=== PATIENT | female | born 1965 | race Caucasian/White ===

== ENCOUNTER 2018-01-28 09:01 | Outpatient (REF) | payer MEDICARE, MEDICAID, SELFPAY ==
[2018-01-28 13:58] LABS: Bilirubin Negative (Negative); Blood Negative (Negative); Clarity Clear; Glucose Negative (Negative); Ketones Negative (Negative); Leukocyte Esterase Small (Negative); Nitrite Positive (Negative); Specific Gravity 1.015 (1.005-1.025); Urobilinogen 0.2 EU/dL (Up TO 0.2)
[2018-01-28 13:59] LABS: HCT 36.6 % (36.0-46.0); HGB 12.1 g/dL (12.0-15.5); Mean Corp. HGB Concentration 33.1 g/dL (32.0-36.0); Mean Corpuscular Hemoglobin 28.2 pg (27.0-33.0); Mean Corpuscular Volume 85.3 fL (80-95); Platelet Count 208 x1000/uL (130-400); RBC 4.29 m/cumm (4.00-5.20); White Blood Cell Count 3.93 k/cumm (4.4-10.8)
[2018-01-28 14:23] LABS: Anion Gap 9.9 mmol/L (3-11); BUN 12 mg/dL (7-18); CO2 25.1 mmol/L (21.0-32.0); CREATININE 0.69 mg/dL (0.55-1.02); Calcium 8.5 mg/dL (8.5-10.1); Chloride 100 mmol/L (98-107); Glucose 124 mg/dL (70-100); Magnesium 1.6 mg/dL (1.8-2.4); PHOSPHORUS 3.8 mg/dL (2.6-4.7); Potassium 4.2 mmol/L (3.5-5.1); Sodium 135 mmol/L (136-145); Uric Acid 2.5 mg/dL (2.6-6.0)
[2018-01-28 14:30] LABS: Epithelial Cells Rare HPF (Negative); Other Cells Few Renal (Negative); WBC 20-50 HPF (0-5)
[2018-01-28 14:31] LABS: Bacteria Many HPF (Negative); C & S Indicated? Yes; Crystals Negative HPF (Negative); Mucus Negative (Negative); RBC Negative (0-2)
== END 2018-01-28 09:21 ==
LOC: NCHCN 09:01
PROVIDERS: PCP Internal Medicine; Visit Provider Internal Medicine
DX: N18.9 Chronic kidney disease, unspecified (principal)
CPT/HCPCS: 80048; 85027; 87077; 81003; 81015; 83735; 84100; 84550; 87086; 87186

== ENCOUNTER 2018-02-24 00:29 | Outpatient (CLI) | payer MEDICARE, MEDICAID, SELFPAY ==
--- NOTE | 2018-02-24 12:56 | DI.MAMMO_ITS ---
SYMPTOM/DIAGNOSIS: SCREENING, Z12.31 MAMMOGRAMS: Mammograms were interpreted according to the usual protocol including computer analysis with CAD system, tomosynthesis and C view imaging. Comparison is made with prior examinations. Breast density, category C. No suspicious masses or microcalcifications are seen. Coarse calcifications are noted in the upper outer quadrants of both breasts. No suspicious microcalcifications are seen. The skin and axilla are unremarkable. IMPRESSION: No definite evidence for malignancy. Yearly mammography is recommended. Category 2. MQSA ASSESSMENT OF FINDINGS: Negative with benign findings. Category 2. Patient will receive a letter notifying them of these results. Bi-RADS category C. The breasts are heterogeneously dense, which may obscure small masses.
== END 2018-02-24 00:49 ==
PROVIDERS: PCP Internal Medicine; Visit Provider Nurse Practitioner
DX: Z12.31 Encounter for screening mammogram for malignant neoplasm of breast (principal)
CPT/HCPCS: 77063; 77067

== ENCOUNTER 2018-03-24 15:54 | Outpatient (CLI) | payer MEDICARE, MEDICAID, SELFPAY ==
--- NOTE | 2018-03-24 15:51 | DI.RAD_ITS ---
SYMPTOM/DIAGNOSIS: LEFT MED KNEE PAIN AND STIFFNESS LEFT HIP: There are no prior comparison exams. There is moderate to severe hip joint space narrowing. There is sclerosis, acetabular and femoral head spurring as well as subchondral cyst formation on both sides of the joint. Surgical clips are seen in the left groin region. IMPRESSION: Severe degenerative changes.
== END 2018-03-24 16:14 ==
PROVIDERS: PCP Internal Medicine; Referring Provider Internal Medicine; Visit Provider Student in an Organized Health Care Education/Training Program
DX: M25.562 Pain in left knee (principal); M25.662 Stiffness of left knee, not elsewhere classified; M25.552 Pain in left hip; M16.12 Unilateral primary osteoarthritis, left hip
CPT/HCPCS: 99214; 73502

== ENCOUNTER 2018-03-31 16:42 | Outpatient (REF) | payer MEDICARE, MEDICAID, SELFPAY | END 2018-03-31 17:02 | LOC: NCHCN 16:42 | PROVIDERS: PCP Internal Medicine; Visit Provider Internal Medicine | DX: N39.0 Urinary tract infection, site not specified (principal) | CPT/HCPCS: 87077; 87086; 87186 ==

== ENCOUNTER 2018-04-07 11:55 | Outpatient (REF) | payer MEDICARE, MEDICAID, SELFPAY ==
--- NOTE | 2018-04-07 10:40 | PAPFT_PTH ---
PATIENT: Darl[facility] Farah [facility] U[id number] AGE/SX: 52/F ROOM: RE04/07/[address]: Nader Dobson : 1965 BED: DIS: 04/07/2018 SPEC #: [id number] RECD: 04/08/18 13:11 STATUS: MARGO REAngy #: [id number] RUBI: 04/07/18 10:[address]: aNder Dobson DEPT: [facility] Cytology RECD BY: Tiana Kirk Tissues: 1 - CX/ENDOCX FOR PAP SMEARS Procedures: PAP THIN PREP/UVM Screening Comments: [id number] (UNSATISFACTORY FOR EVALUATION)
== END 2018-04-07 12:15 ==
LOC: NCHCN 11:55
PROVIDERS: PCP Internal Medicine; Visit Provider Internal Medicine
DX: Z12.4 Encounter for screening for malignant neoplasm of cervix (principal)
CPT/HCPCS: 88142

== ENCOUNTER 2018-04-10 00:23 | Outpatient (CLI) | payer MEDICARE, MEDICAID, SELFPAY ==
--- NOTE | 2018-04-10 09:59 | DI.RAD_ITS ---
SYMPTOM/DIAGNOSIS: OA LT HIP, M16.12 HIP INJECTION: Fluoroscopy Time: 3 sec Fluoroscopy was utilized by Dr. Obando during the performance of a left hip injection. Please refer to the procedure report for complete details.
[2018-04-10] MEDS: Bupivacaine 0.5% Pres-Free 10 ML VIAL 6 ML IJ (10:10)
[2018-04-10] MEDS: Omnipaque 300 MG/ML 10 ML BTL IJ (10:11)
[2018-04-10] MEDS: methylPREDNISolone ACETATE 80 MG/ML VIAL IM (10:11)
--- NOTE | 2018-04-10 11:24 | W.PROCNOTE ---
Date of service: 04/10/18 Time of Service: 11:25 Procedure Note Date of procedure: 04/10/18 Procedure: Left Hip Injection with Fluoroscopic Guidance Surgeon/Proceduralist/Physician: Odilon Obando Procedure Diagnosis: Left Hip Osteoarthritis Procedure Indications: Darlene has had persistent pain of the LEFT knee but with significant hip arthritis. Noninvasive measures have been tried. To serve as both diagnostic and therapeutic, an injection under fluoroscopy was recommended. I had discussed the risks of the procedure and the patient elected to proceed. Procedure Description: Darlene was greeted in the flouroscopy room. The correct side was identified and the consent was reviewed with the patient and signed. The patient was then placed in the supine position on the fluoroscopy table. The LEFT hip was then prepped with Chloraprep. The anterolateral injection starting point was identiifed by bony landmarks and fluoroscopy. The skin and soft tissue in the tract of the injection was anesthetized with 1% Lidocaine. A spinal needle was then inserted deep into the hip joint at the level of the lateral femoral neck under fluoroscopic guidance. A small amount of Omnipaque solution was injected to confirm intraarticular placement. Once confirmed, the hip was injected with 6cc of 0.5% Bupivicaine and 80mg of Depo-Medrol. A bandaid was placed on the injection site. The patient tolerated the procedure well and noted improvement in pre-injection pain.
== END 2018-04-10 00:43 ==
PROVIDERS: PCP Internal Medicine; Visit Provider Student in an Organized Health Care Education/Training Program
DX: M25.552 Pain in left hip (principal); M16.12 Unilateral primary osteoarthritis, left hip
CPT/HCPCS: 20610; 77002; J1040

== ENCOUNTER 2018-04-23 15:18 | Outpatient (REF) | payer MEDICARE, MEDICAID, SELFPAY ==
[2018-04-23 22:09] LABS: Bilirubin Negative (Negative); Blood Negative (Negative); Clarity Clear; Glucose Negative (Negative); Ketones Negative (Negative); Leukocyte Esterase Negative (Negative); Nitrite Positive (Negative); Specific Gravity <= 1.005 (1.005-1.025); Urobilinogen 0.2 EU/dL (Up TO 0.2); pH 5.5 (5-8)
[2018-04-23 22:31] LABS: Bacteria Many HPF (Negative); C & S Indicated? Yes; Casts Negative LPF (Negative); Crystals Negative HPF (Negative); Epithelial Cells Negative HPF (Negative); Mucus Negative (Negative); RBC Negative (0-2)
== END 2018-04-23 15:38 ==
LOC: NCHCN 15:18
PROVIDERS: PCP Internal Medicine; Visit Provider Internal Medicine
DX: N39.0 Urinary tract infection, site not specified (principal)
CPT/HCPCS: 87077; 81003; 81015; 87086; 87186

== ENCOUNTER 2018-05-21 14:18 | Outpatient (CLI) | payer MEDICARE, MEDICAID, SELFPAY ==
--- NOTE | 2018-05-21 14:14 | DI.RAD_ITS ---
SYMPTOM/DIAGNOSIS: PRE LT UNA LEFT HIP: Severe DJD is demonstrated. There is joint space narrowing, sclerosis and subchondral cyst formation. There is no evidence of a superimposed fracture or dislocation. There are multiple vascular clips in the left hemipelvis. The findings suggest a prior lymph node dissection. SUMMARY: Severe DJD left hip.
== END 2018-05-21 14:38 ==
PROVIDERS: PCP Internal Medicine; Referring Provider Internal Medicine; Visit Provider Student in an Organized Health Care Education/Training Program
DX: M16.12 Unilateral primary osteoarthritis, left hip (principal)
CPT/HCPCS: 99213; 73501

== ENCOUNTER 2018-05-21 17:14 | Outpatient (REF) | payer MEDICARE, MEDICAID, SELFPAY ==
[2018-05-21 21:46] LABS: Bilirubin Negative (Negative); Blood Negative (Negative); Clarity Sl Cloudy; Glucose Negative (Negative); Ketones Negative (Negative); Leukocyte Esterase Small (Negative); Nitrite Positive (Negative); Specific Gravity 1.015 (1.005-1.025); Urobilinogen 0.2 EU/dL (Up TO 0.2)
[2018-05-21 23:26] LABS: C & S Indicated? C&S Done As Ordered
[2018-05-21 23:28] LABS: Bacteria Many HPF (Negative); Crystals Negative HPF (Negative); Epithelial Cells Rare HPF (Negative); Mucus Negative (Negative); RBC Negative (0-2); WBC >50 HPF (0-5)
== END 2018-05-21 17:34 ==
LOC: NCHCN 17:14
PROVIDERS: PCP Internal Medicine; Visit Provider Internal Medicine
DX: N39.0 Urinary tract infection, site not specified (principal)
CPT/HCPCS: 87077; 81003; 81015; 87086; 87186

== ENCOUNTER 2018-06-16 10:21 | Outpatient (REF) | payer MEDICARE, MEDICAID, SELFPAY ==
[2018-06-16 23:22] LABS: Bacteria Many HPF (Negative); Bilirubin Negative (Negative); Blood Negative (Negative); C & S Indicated? Yes; Casts Negative LPF (Negative); Clarity Clear; Crystals Negative HPF (Negative); Epithelial Cells Rare HPF (Negative); Glucose Negative (Negative); Ketones Negative (Negative); Leukocyte Esterase Small (Negative); Mucus Negative (Negative); Nitrite Positive (Negative); RBC 0-2 (0-2); Specific Gravity 1.015 (1.005-1.025); Urobilinogen 0.2 EU/dL (Up TO 0.2)
== END 2018-06-16 10:41 ==
LOC: NCHCN 10:21
PROVIDERS: PCP Internal Medicine; Visit Provider Internal Medicine
DX: N39.0 Urinary tract infection, site not specified (principal)
CPT/HCPCS: 87077; 81003; 81015; 87086; 87186

== ENCOUNTER 2018-07-18 12:41 | Outpatient (REF) | payer MEDICARE, MEDICAID, SELFPAY | END 2018-07-18 13:01 | LOC: NCHCN 12:41 | PROVIDERS: PCP Internal Medicine; Visit Provider Internal Medicine | DX: N39.0 Urinary tract infection, site not specified (principal); Z87.440 Personal history of urinary (tract) infections | CPT/HCPCS: 87077; 87086; 87186 ==

== ENCOUNTER 2018-08-04 10:29 | Outpatient (REF) | payer MEDICARE, MEDICAID, SELFPAY ==
[2018-08-04 20:58] LABS: Bilirubin Negative (Negative); Blood Trace-intact (Negative); Clarity Cloudy; Glucose Negative (Negative); Ketones 15 mg/dL (Negative); Leukocyte Esterase Trace (Negative); Nitrite Positive (Negative); Specific Gravity 1.025 (1.005-1.025)
[2018-08-04 21:07] LABS: Bacteria Packed HPF (Negative); Crystals Few Calcium Oxalate HPF (Negative); Epithelial Cells Rare HPF (Negative); Mucus Trace (Negative); WBC >50 HPF (0-5)
[2018-08-04 21:08] LABS: C & S Indicated? C&S Done As Ordered; Casts Negative LPF (Negative)
== END 2018-08-04 10:49 ==
LOC: NCHCN 10:29
PROVIDERS: PCP Internal Medicine; Visit Provider Internal Medicine
DX: R82.79 Other abnormal findings on microbiological examination of urine (principal); Z87.440 Personal history of urinary (tract) infections
CPT/HCPCS: 87077; 81003; 81015; 87086; 87186

== ENCOUNTER 2018-08-04 11:41 | Outpatient (CLI) | payer MEDICARE, MEDICAID, SELFPAY ==
[2018-08-04 12:25] LABS: HCT 39.9 % (36.0-46.0); Mean Corp. HGB Concentration 35.1 g/dL (32.0-36.0); Mean Corpuscular Hemoglobin 28.5 pg (27.0-33.0); Mean Corpuscular Volume 81.1 fL (80-95); Mean Platelet Volume 8.7 fL (8.0-11.0); Platelet Count 284 x1000/uL (130-400); RBC 4.92 m/cumm (4.00-5.20); RBC Distribution Width 14.5 % (11.7-14.6); White Blood Cell Count 10.43 k/cumm (4.4-10.8)
[2018-08-04 13:18] LABS: Cholesterol 209 mg/dL (50-200)
[2018-08-04 13:20] LABS: ALT 21 U/L (12-78); AST 26 U/L (15-37); Alkaline Phosphatase 62 U/L (46-116); Anion Gap 13.5 mmol/L (3-11); BUN 17 mg/dL (7-18); Bilirubin, Total 1.6 mg/dL (0.2-1.0); CO2 21.5 mmol/L (21.0-32.0); CREATININE 0.58 mg/dL (0.55-1.02); Chloride 90 mmol/L (98-107); Glucose 147 mg/dL (70-100); Magnesium 1.3 mg/dL (1.8-2.4); PHOSPHORUS 3.2 mg/dL (2.6-4.7); Sodium 125 mmol/L (136-145); Total Protein 7.3 g/dL (6.4-8.2); Uric Acid 1.5 mg/dL (2.6-6.0)
[2018-08-05 12:21] LABS: Tacrolimus 12.7 ng/ml
== END 2018-08-04 12:01 ==
PROVIDERS: PCP Internal Medicine; Visit Provider Internal Medicine Nephrology
DX: Z94.0 Kidney transplant status (principal); Z79.899 Other long term (current) drug therapy
CPT/HCPCS: 36415; 80053; 85027; 80197; 81003; 82465; 82565; 83735; 84100; 84156; 84550

== ENCOUNTER 2018-08-04 18:03 | Inpatient (IN) | payer MEDICARE, MEDICAID, SELFPAY ==
[2018-08-04] VITALS (40 sets, daily range): BP systolic 139–187; BP diastolic 66–81; PULSE 84–100; RESP 7–22; TEMP 37–37.1; O2SAT 95–98
[2018-08-04] MEDS: Lidocaine/Prilocaine Cream 5 GM TUBE (19:00)
[2018-08-04] MEDS: Normal Saline 1,000 ML 1000 ML IV (20:00)
--- NOTE | 2018-08-04 20:04 | W.ED.GENAD ---
Discharge Plan Disposition Patient Disposition: [facility] INPATIENT Condition: Serious Discharge Details Chief Complaint: Nausea/Vomit/Diar Clinical Impression: Pyelonephritis, Hyponatremia, Hypomagnesemia Admit Date/Time: 08/04/18 22:40 Admit Provider: Leonard Nieto Attending Provider: Renée Dumont Primary Care Provider: Nader Dobson ED Provider: Can Slaughter Discharge Data Discharge Date/Time-TO BE ENTERED AT DEPARTURE: 08/04/18 23:30 Medical Decision Making 20:30 --53-year-old female with multiple medical problems, status post renal transplant #3,on prograf, here with decreased urine output, loose stool for the past 3 days, vomited once today, confusion, hyponatremia and hypomagnesemia. Abdominal exam benign. Self catherizes for neurogenic bladder. Frequent UTIs over the past few months. Screening ECG was reviewed and interpreted by me: Sinus rhythm 95 bpm, normal axis, T wave inversions noted in lead III, aVF, LVH noted. QTc 463. Significant difficulty obtained IV access. Multiple attempts made by nursing and myself. Dr. Lovett was able to secure RUE peripheral IV with US guidance. Labs reviewed: persistent hypomag. Will give mag 1g IV. persistent hyponatremia. Patient hypovolemic. Will give NS IVF bolus. Supratherapeutic INR at 4.9. No active bleeding. UA concerning for UTI. Daughter notes multiple recent UTIs. Urine cx from 07/20/18 grew ecoli sensitive to cephalosporins. She completed 10d course of cephalexin on 07/31. Prefer to avoid flouroquinolones and bactrim given INR. Will give ceftriaxone 1g IV and add macrobid PO. -- Called [facility] to speak with transplant specialist. 21:50 -- Spoke with Dr. Mott at [facility] and discussed presentation and ED course. He recommends admission for IV antibiotics (agrees with ceftriaxone) and recommends maintaining kidd catheter and correcting electrolytes. Recommends continuing 2nd or 3rd generation for 21 days. 21:54 -- Plan to admit. Medical Records Medical records reviewed: Yes I reviewed the patient's medical records. Urine Culture Final 07/20/18-0716 Day 1 Result ISOLATES BELOW ISOLATE 1 COLONY COUNT >100,000 COLONIES/ML ISOLATE 1 APPEARANCE Gram Negative [place] ISOLATE 1 ACTION SUSCEPTIBILITY TO FOLLOW Day 2 Result ISOLATES BELOW ISOLATE 1 COLONY COUNT >100,000 COLONIES/ML ISOLATE 1 APPEARANCE Gram Negative [place] Organism 1 Escherichia coli COLONY COUNT >100,000 COLONIES/ML Esc coli RESULT Ampicillin R Ampicillin/Sulbactam R Cefazolin S Ceftazidime S CEFTRIAXONE S Ciprofloxacin S Gentamicin S Nitrofurantoin S Imipenem S Levofloxacin S Tobramycin S Trimethoprim/Sulfamethoxazole R Piperacillin/Tazobactam S HPI General Date/Time Provider Initiated Documentation: 08/04/18 18:14. Information obtained by: patient and family. HPI Narrative: 53-year-old female with multiple medical problems, status post renal transplant #3,on prograf, here with decreased urine output, loose stool for the past 3 days, vomited once today, confusion, hyponatremia and hypomagnesemia on OSH labs. Symptoms are moderate and without modifier. No associated fever. No JACOB. Related Data Home Medications Medication Instructions Recorded Confirmed acetaminophen [Tylenol] 650 mg PO PRN 08/15/13 08/04/18 alendronate 70 mg PO DIRECTED 08/15/13 08/04/18 cetirizine 10 mg PO PRN 08/15/13 08/04/18 citalopram 20 mg PO DAILY 08/15/13 08/04/18 esomeprazole magnesium [Nexium] 40 mg PO PRN 08/15/13 08/04/18 levetiracetam [Keppra] 1,500 mg PO BID 08/15/13 08/04/18 mycophenolate mofetil 250 mg PO BID 08/15/13 08/04/18 simethicone [Gas-X Extra Strength] 1 - 2 cap PO PRN 08/15/13 08/04/18 tacrolimus [Prograf] 3 mg PO BID 08/15/13 08/04/18 ascorbic acid (vitamin C) [Vitamin 1 tab PO TID 02/09/15 08/04/18 C] Nii Protect 1 applic TOPICAL . DIRECTED PRN 08/04/18 08/04/18 Biofreeze (menthol) 1 % TOPICAL . DIRECTED PRN 08/04/18 08/04/18 Central-Maria L 1 tab PO DAILY 08/04/18 08/04/18 Preparation H 1 applic TOPICAL DAILY 08/04/18 08/04/18 acyclovir [Zovirax] 1 applic TOPICAL DAILY PRN 08/04/18 08/04/18 bacitracin 1 applic 08/04/18 d-mannose 500 pwd 08/04/18 docusate sodium 100 mg PO DAILY PRN 08/04/18 08/04/18 fluocinonide 1 applic TOPICAL DAILY PRN 08/04/18 08/04/18 guaifenesin [Tussin] 200 mg PO DAILY PRN 08/04/18 08/04/18 hydrocortisone 1 applic TOPICAL DAILY PRN 08/04/18 08/04/18 loperamide 2 mg PO . DIRECTED PRN 08/04/18 08/04/18 polyethylene glycol 3350 [Miralax] 17 g PO DAILY PRN 08/04/18 08/04/18 ceftriaxone in dextrose,iso-os 1 g IVPB Q24H #0 ea 08/05/18 esomeprazole sodium 40 mg IVP DAILY #0 ea 08/05/18 hydrocortisone sod succ (PF) 50 mg IVP Q6H #0 ea 08/05/18 [Solu-Cortef (PF)] ondansetron 4 mg PO Q8H PRN PRN #0 tab 08/05/18 Previous Rx's Medication Instructions Recorded ceftriaxone in dextrose,iso-os 1 g IVPB Q24H #0 ea 08/05/18 esomeprazole sodium 40 mg IVP DAILY #0 ea 08/05/18 hydrocortisone sod succ (PF) 50 mg IVP Q6H #0 ea 08/05/18 [Solu-Cortef (PF)] ondansetron 4 mg PO Q8H PRN PRN #0 tab 08/05/18 Allergies Allergy/AdvReac Type Severity Reaction Status Date / Time codeine Allergy Unverified 05/21/18 13:55 divalproex sodium Allergy Unverified 05/21/18 13:55 [From Depakote] povidone-iodine AdvReac Skin Rash Unverified 05/21/18 13:55 [From Betadine] soap [From Betadine] AdvReac Skin Rash Unverified 05/21/18 13:55 General Stated Complaint: Nausea/Vomit/Diar AD: 3 Review of Systems Review of Systems All systems reviewed & are unremarkable except as noted in HPI and below Constitutional Denies fever(s) Gastrointestinal Denies abdominal pain, Reports diarrhea, Reports nausea and Reports vomiting PFS Medical History Chronic anticoagulation Chronic kidney disease Convulsions Hyperparathyroidism Neurogenic bladder Osteoporosis Peripheral neuropathy Protein S deficiency TBI (traumatic brain injury) Surgical History Colonoscopy - MAC (02/11/15) Fistula creation Renal Transplant Social History Smoking/Tobacco Use Status: Never Drug use: Never Do you feel safe at home: Yes Do you feel safe in your relationship?: Yes Additional Social history: Lives in snf in [place]. Has VNA care there as well. Exam Const General: cooperative and no acute distress HENMT Head: normocephalic and atraumatic Mouth: mucous membranes dry Eyes Conjunctivae: normal conjunctivae Sclera: normal sclerae Neck Neck: trachea midline and supple Resp Auscultation: clear to auscultation bilaterally, no rales, no rhonchi and no wheezes Cardio Jugular venous pressure: no JVD Rate: regular rate and not tachycardic Rhythm: regular rhythm Heart Sounds: murmur systolic II/ GI Palpation: soft, not firm, no guarding, no masses, not rigid and nontender Skin General skin exam: no rashes or lesions noted Neuro General: alert, awake, oriented x3 and tone normal Extrem General: no edema Psych Appearance: grossly normal Affect: No anxious affect Attitude: cooperative Course Vital Signs Temperature 37.0 C 08/04/18 18:09 Pulse 99 H 08/04/18 18:09 Respiratory Rate 16 08/04/18 18:09 Blood Pressure 139/66 08/04/18 18:09 Pulse Oximetry 96 08/04/18 18:09 Temperature 37.0 C 08/04/18 18:09 Temperature Source Temporal Artery Scan 08/04/18 18:09 Pulse 99 H 08/04/18 18:09 Respiratory Rate 16 08/04/18 18:09 Respiratory Effort Non-Labored 08/04/18 18:11 Blood Pressure 139/66 08/04/18 18:09 Pulse Oximetry 96 08/04/18 18:09 Oxygen Delivery Method Room Air 08/04/18 18:09 Oxygen Flow Rate 0 08/04/18 18:09 Pain Level 0 08/04/18 18:09 Lab/Test Results Lab/Test Results: 08/04/18 19:08 Stool Clostridioides difficile Screen - Pending
[2018-08-04 20:06] LABS: Abs Immature Grans 0.02 k/cumm (0.0-0.09); Absolute Basophil Count 0.01 k/cumm (0.0-0.2); Absolute Eosinophil Count 0.01 k/cumm (0.0-0.7); Absolute Lymphocyte Count 1.12 k/cumm (1.2-3.4); Absolute Monocyte Count 0.79 k/cumm (0.11-0.7); Absolute Neutrophil Count 7.33 k/cumm (1.2-6.7); Basophils % 0.1; Eosinophils % 0.1; HCT 38.5 % (36.0-46.0); HGB 13.6 g/dL (12.0-15.5); Immature Grans % 0.2; Lymphocytes % 12.1; Mean Corp. HGB Concentration 35.3 g/dL (32.0-36.0); Mean Corpuscular Hemoglobin 28.6 pg (27.0-33.0); Mean Corpuscular Volume 81.1 fL (80-95); Mean Platelet Volume 8.8 fL (8.0-11.0); Monocytes % 8.5; Platelet Count 255 x1000/uL (130-400); RBC 4.75 m/cumm (4.00-5.20); RBC Distribution Width 14.4 % (11.7-14.6); White Blood Cell Count 9.28 k/cumm (4.4-10.8)
[2018-08-04 20:16] LABS: Bilirubin Negative (Negative); Blood Moderate (Negative); Clarity Clear; Glucose Negative (Negative); Ketones 80 mg/dL (Negative); Leukocyte Esterase Trace (Negative); Nitrite Negative (Negative); Specific Gravity 1.025 (1.005-1.025)
[2018-08-04 20:18] LABS: ALT 18 U/L (12-78); AST 25 U/L (15-37); Albumin 3.7 g/dL (3.4-5.0); Alkaline Phosphatase 59 U/L (46-116); Anion Gap 11.7 mmol/L (3-11); BUN 17 mg/dL (7-18); Bilirubin, Total 1.6 mg/dL (0.2-1.0); CO2 24.3 mmol/L (21.0-32.0); CREATININE 0.59 mg/dL (0.55-1.02); Calcium 8.7 mg/dL (8.5-10.1); Chloride 90 mmol/L (98-107); Glucose 131 mg/dL (70-100); Magnesium 1.3 mg/dL (1.8-2.4); Potassium 3.7 mmol/L (3.5-5.1); Sodium 126 mmol/L (136-145)
[2018-08-04 20:23] LABS: Prothrombin Time 50.3 sec (9.3-11.0)
[2018-08-04 20:26] LABS: Epithelial Cells Few HPF (Negative); WBC >50 HPF (0-5)
[2018-08-04 20:27] LABS: Bacteria Rare HPF (Negative); C & S Indicated? Yes; Casts Negative LPF (Negative); Crystals Rare Calcium Oxalate HPF (Negative); Mucus Moderate (Negative)
[2018-08-04 20:32] LABS: INR 4.9 (0.9-1.1)
[2018-08-04] MEDS: MAGNESIUM SULFATE 1 GM/100 ML BAG IVPB (20:36)
--- NOTE | 2018-08-04 20:40 | ED.GENADUL_ITS ---
Discharge Plan Disposition Patient Disposition: [facility] INPATIENT Condition: Serious Discharge Details Chief Complaint: Nausea/Vomit/Diar Clinical Impression: Pyelonephritis, Hyponatremia, Hypomagnesemia Admit Date/Time: 08/04/18 22:40 Admit Provider: Leonard Nieto Attending Provider: Renée Dumont Primary Care Provider: Nader Dobson ED Provider: Can Slaughter Discharge Data Discharge Date/Time-TO BE ENTERED AT DEPARTURE: 08/04/18 23:30 Medical Decision Making 20:30 --53-year-old female with multiple medical problems, status post renal transplant #3,on prograf, here with decreased urine output, loose stool for the past 3 days, vomited once today, confusion, hyponatremia and hypomagnesemia. Abdominal exam benign. Self catherizes for neurogenic bladder. Frequent UTIs over the past few months. Screening ECG was reviewed and interpreted by me: Sinus rhythm 95 bpm, normal axis, T wave inversions noted in lead III, aVF, LVH noted. QTc 463. Significant difficulty obtained IV access. Multiple attempts made by nursing and myself. Dr. Lovett was able to secure RUE peripheral IV with US guidance. Labs reviewed: * persistent hypomag. Will give mag 1g IV. * persistent hyponatremia. Patient hypovolemic. Will give NS IVF bolus. * Supratherapeutic INR at 4.9. No active bleeding. * UA concerning for UTI. Daughter notes multiple recent UTIs. Urine cx from 07/20/18 grew ecoli sensitive to cephalosporins. She completed 10d course of cephalexin on 07/31. Prefer to avoid flouroquinolones and bactrim given INR. Will give ceftriaxone 1g IV and add macrobid PO. -- [place] [facility] [place] speak [place] transplant specialist. 21:50 -- Spoke with Dr. Mott at [facility] and discussed presentation and ED course. He recommends admission for IV antibiotics (agrees with ceftriaxone) and recommends maintaining kidd catheter and correcting electrolytes. Recommends continuing 2nd or 3rd generation for 21 days. 21:54 -- Plan to admit. Medical Records Medical records reviewed: Yes I reviewed the patient's medical records. Urine Culture Final 07/20/18-16 Day 1 Result ISOLATES BELOW ISOLATE 1 COLONY COUNT >100,000 COLONIES/ML ISOLATE 1 APPEARANCE Gram Negative [place] ISOLATE 1 ACTION SUSCEPTIBILITY TO FOLLOW Day 2 Result ISOLATES BELOW ISOLATE 1 COLONY COUNT >100,000 COLONIES/ML ISOLATE 1 APPEARANCE Gram Negative [place] Organism 1 Escherichia coli COLONY COUNT >100,000 COLONIES/ML [facility] coli RESULT Ampicillin R Ampicillin/Sulbactam R Cefazolin S Ceftazidime S CEFTRIAXONE S Ciprofloxacin S Gentamicin S Nitrofurantoin S Imipenem S Levofloxacin S Tobramycin S Trimethoprim/Sulfamethoxazole R Piperacillin/Tazobactam S HPI General Date/Time Provider Initiated Documentation: 08/04/18 18:14 . Information obtained by: patient and family . HPI Narrative: 53-year-old female with multiple medical problems, status post renal transplant #3,on prograf, here with decreased urine output, loose stool for the past 3 days, vomited once today, confusion, hyponatremia and hypomagnesemia on OSH labs. Symptoms are moderate and without modifier. No associated fever. No JACOB. Related Data Home Medications Medication Instructions Recorded Confirmed acetaminophen [Tylenol] 650 mg PO PRN 08/15/13 08/04/18 alendronate 70 mg PO DIRECTED 08/15/13 08/04/18 cetirizine 10 mg PO PRN 08/15/13 08/04/18 citalopram 20 mg PO DAILY 08/15/13 08/04/18 esomeprazole magnesium [Nexium] 40 mg PO PRN 08/15/13 08/04/18 levetiracetam [Keppra] 1,500 mg PO BID 08/15/13 08/04/18 mycophenolate mofetil 250 mg PO BID 08/15/13 08/04/18 simethicone [Gas-X Extra Strength] 1 - 2 cap PO PRN 08/15/13 08/04/18 tacrolimus [Prograf] 3 mg PO BID 08/15/13 08/04/18 ascorbic acid (vitamin C) [Vitamin 1 tab PO TID 02/09/15 08/04/18 C] Nii Protect 1 applic TOPICAL . DIRECTED PRN 08/04/18 08/04/18 Biofreeze (menthol) 1 % TOPICAL . DIRECTED PRN 08/04/18 08/04/18 Central-Maria L 1 tab PO DAILY 08/04/18 08/04/18 Preparation H 1 applic TOPICAL DAILY 08/04/18 08/04/18 acyclovir [Zovirax] 1 applic TOPICAL DAILY PRN 08/04/18 08/04/18 bacitracin 1 applic 08/04/18 d-mannose 500 pwd 08/04/18 docusate sodium 100 mg PO DAILY PRN 08/04/18 08/04/18 fluocinonide 1 applic TOPICAL DAILY PRN 08/04/18 08/04/18 guaifenesin [Tussin] 200 mg PO DAILY PRN 08/04/18 08/04/18 hydrocortisone 1 applic TOPICAL DAILY PRN 08/04/18 08/04/18 loperamide 2 mg PO . DIRECTED PRN 08/04/18 08/04/18 polyethylene glycol 3350 [Miralax] 17 g PO DAILY PRN 08/04/18 08/04/18 ceftriaxone in dextrose,iso-os 1 g IVPB Q24H #0 ea 08/05/18 esomeprazole sodium 40 mg IVP DAILY #0 ea 08/05/18 hydrocortisone sod succ (PF) 50 mg IVP Q6H #0 ea 08/05/18 [Solu-Cortef (PF)] ondansetron 4 mg PO Q8H PRN PRN #0 tab 08/05/18 Previous Rx's Medication Instructions Recorded ceftriaxone in dextrose,iso-os 1 g IVPB Q24H #0 ea 08/05/18 esomeprazole sodium 40 mg IVP DAILY #0 ea 08/05/18 hydrocortisone sod succ (PF) 50 mg IVP Q6H #0 ea 08/05/18 [Solu-Cortef (PF)] ondansetron 4 mg PO Q8H PRN PRN #0 tab 08/05/18 Allergies Allergy/AdvReac Type Severity Reaction Status Date / Time codeine Allergy Unverified 05/21/18 13:55 divalproex sodium Allergy Unverified 05/21/18 13:55 [From Depakote] povidone-iodine AdvReac Skin Rash Unverified 05/21/18 13:55 [From Betadine] soap [From Betadine] AdvReac Skin Rash Unverified 05/21/18 13:55 General Stated Complaint: Nausea/Vomit/Diar AD: 3 Review of Systems Review of Systems All systems reviewed & are unremarkable except as noted in HPI and below Constitutional Denies fever(s) Gastrointestinal Denies abdominal pain, Reports diarrhea, Reports nausea and Reports vomiting PFSH Medical History Chronic anticoagulation Chronic kidney disease Convulsions Hyperparathyroidism Neurogenic bladder Osteoporosis Peripheral neuropathy Protein S deficiency TBI (traumatic brain injury) Surgical History Colonoscopy - MAC (02/11/15) Fistula creation Renal Transplant Social History Smoking/Tobacco Use Status: Never Drug use: Never Do you feel safe at home: Yes Do you feel safe in your relationship?: Yes Additional Social history: Lives in shelter in [place]. Has VNA care there as well. Exam Const General: cooperative and no acute distress HENMT Head: normocephalic and atraumatic Mouth: mucous membranes dry Eyes Conjunctivae: normal conjunctivae Sclera: normal sclerae Neck Neck: trachea midline and supple Resp Auscultation: clear to auscultation bilaterally, no rales, no rhonchi and no wheezes Cardio Jugular venous pressure: no JVD Rate: regular rate and not tachycardic Rhythm: regular rhythm Heart Sounds: murmur systolic II/ GI Palpation: soft, not firm, no guarding, no masses, not rigid and nontender Skin General skin exam: no rashes or lesions noted Neuro General: alert, awake, oriented x3 and tone normal Extrem General: no edema Psych Appearance: grossly normal Affect: No anxious affect Attitude: cooperative Course Vital Signs Temperature 37.0 C 08/04/18 18:09 Pulse 99 H 08/04/18 18:09 Respiratory Rate 16 08/04/18 18:09 Blood Pressure 139/66 08/04/18 18:09 Pulse Oximetry 96 08/04/18 18:09 Temperature 37.0 C 08/04/18 18:09 Temperature Source Temporal Artery Scan 08/04/18 18:09 Pulse 99 H 08/04/18 18:09 Respiratory Rate 16 08/04/18 18:09 Respiratory Effort Non-Labored 08/04/18 18:11 Blood Pressure 139/66 08/04/18 18:09 Pulse Oximetry 96 08/04/18 18:09 Oxygen Delivery Method Room Air 08/04/18 18:09 Oxygen Flow Rate 0 08/04/18 18:09 Pain Level 0 04/08/19 18:09 Lab/Test Results Lab/Test Results: 08/04/18 19:08 Stool Clostridioides difficile Screen - Pending
[2018-08-04] MEDS: MacroBID 100 MG CAP PO (21:46)
[2018-08-04] MEDS: cefTRIAXone 1 GM/50 ML BAG IVPB (21:46)
--- NOTE | 2018-08-04 22:52 | W.PM.HP.N ---
Date of service: 08/04/18 Time of Service: 22:52 Assessment and Plan (1) Pyelonephritis of transplanted kidney: Current visit: Yes Status: Acute Dr. Slaughter case with transplant specialist [place] [facility] [place] Case is pyelonephritis kidney abnormal sensation, also complicated by urinary retention. I will continue ceftriaxone with urine culture pending. Plan is for the hours of IV therapy, then transition to oral second or third generation cephalosporin pending culture results or prolonged course of treatment 21 days. Will ultrasound kidneys to look for complications of infections or reasons for recurrence. He does not appear septic currently. If she became hypotensive, I would stress dose steroids given her chronic prednisone therapy. I think infection is cause of mild mental status changes (toxic encephalopathy), though low Na could be contributing as well. (2) Hypertension: Current visit: Yes Status: Chronic Blood pressures are high currently, which is not typical for her. Given blood pressure isn't dangerously high will monitor for now. (3) S/P kidney transplant: Current visit: Yes Status: Acute As above case reviewed with Dr. Mina from [facility]. Continue her chronic anti-rejection medications for now, though we may consider holding if she gets sicker. Monitor renal function, which is excellent now. (4) Neurogenic bladder: Current visit: Yes Status: Acute Chronic CIC at home, kidd here for now. (5) Hypercoagulable state, primary: Current visit: Yes Status: Acute holding warfarin due to elevated INR, follow and restart when needed. No sign of active bleed. (6) Seizure disorder: Current visit: Yes Status: Chronic no recent activity, continue keppra (7) Diarrhea: Current visit: Yes Status: Acute With recent antibiotic use, get c. dif testing if this persists. I think electrolyte abnormalities with low Na and Mg related to diarrhea with some dehydration. Replacing now and will follow. (8) DVT prophylaxis: Current visit: Yes Status: Acute as above INR supratherapeutic currently. (9) Discharge planning issues: Current visit: Yes Status: Acute Full Code, will be admitted to medical floor. History of Present Illness Chief Complaint: malaise, decrease urine output Narrative: 53-year-old female, with a intellectual disability living in a residential, hypercoagulable state on warfarin, status post renal transplant on triple therapy or suppression, and chronic urinary retention with recurrent UTIs who presents with some malaise, decreased urine output, diarrhea, and slight confusion. Patient was in her normal state of health until 2 days ago. He started feeling a little dizzy and started getting diarrhea and eating less. She continued to take recommended 2 L of fluids per day. She has had about 5 episodes of watery diarrhea since day, 2 days prior to admission. She has been nauseous, and vomited for the first time this afternoon. He denies fevers, but her sister has noted she looks clammy and feels cold. She has had similar nonspecific symptoms with urinary tract infections in the past. We last treated for a UTI on July 20. The culture grew E. coli sensitive to support and she was treated with 10 days of Keflex. He does take Bactrim chronically for UTI prevention. Review of Systems Review of Systems As per HPI. Additionally, no fevers, but feeling cold and clammy. No weight changes. No headache or vision changes. Some nasal congestion, no sore throat or oral lesions. No cough or wheezing. No chest pain or palpitations. She does have some abdominal pain. No blood in stool or melena. No blood in urine. Urine has been quite dark. The baseline, continues to do intermittent catheterization. No vaginal bleeding or discharge. No new joint pain or swelling. No rashes or other skin lesions. No seizures or other abnormal movements. [facility] Medical History Chronic anticoagulation Chronic kidney disease Convulsions Hyperparathyroidism Neurogenic bladder Osteoporosis Peripheral neuropathy Protein S deficiency TBI (traumatic brain injury) Surgical History Colonoscopy - MAC (02/11/15) Fistula creation Renal Transplant Social History Smoking/Tobacco Use Status: Never Drug use: Never Do you feel safe at home: Yes Do you feel safe in your relationship?: Yes Additional Social history: Lives in residential in [place]. Has VNA care there as well. Meds Home Medications Medication Instructions Recorded Confirmed Type acetaminophen [Tylenol] 650 mg PO PRN 08/15/13 05/21/18 History alendronate 70 mg PO DIRECTED 08/15/13 05/21/18 History amoxicillin 1,000 mg PO DIRECTED 08/15/13 05/21/18 History cetirizine 10 mg PO PRN 08/15/13 05/21/18 History citalopram 20 mg PO DAILY 08/15/13 05/21/18 History esomeprazole magnesium [Nexium] 40 mg PO PRN 08/15/13 05/21/18 History levetiracetam [Keppra] 1,500 mg PO BID 08/15/13 05/21/18 History mycophenolate mofetil 250 mg PO BID 08/15/13 05/21/18 History prednisone 5 mg PO DIRECTED 08/15/13 05/21/18 History simethicone [Gas-X Extra Strength] 1 - 2 cap PO PRN 08/15/13 05/21/18 History sulfamethoxazole-trimethoprim 1 tab PO DAILY 08/15/13 05/21/18 History [Bactrim] tacrolimus [Prograf] 3 mg PO BID 08/15/13 05/21/18 History warfarin [Coumadin] 3 - 4 mg PO DIRECTED 08/15/13 05/21/18 History ascorbic acid (vitamin C) [Vitamin 1 tab PO TID 02/09/15 05/21/18 History C] acyclovir [Zovirax] 1 applic TOPICAL DAILY PRN 08/04/18 08/04/18 History bacitracin 1 applic 08/04/18 History d-mannose 500 pwd 08/04/18 History dimethicone-zinc oxide [Nii 1 applic TOPICAL . DIRECTED PRN 08/04/18 08/04/18 History Protect] docusate sodium 100 mg PO DAILY PRN 08/04/18 08/04/18 History fluocinonide 1 applic TOPICAL DAILY PRN 08/04/18 08/04/18 History guaifenesin [Tussin] 200 mg PO DAILY PRN 08/04/18 08/04/18 History hydrocortisone 1 applic TOPICAL DAILY PRN 08/04/18 08/04/18 History loperamide 2 mg PO . DIRECTED PRN 08/04/18 08/04/18 History menthol [Biofreeze (menthol)] 1 % TOPICAL . DIRECTED PRN 08/04/18 08/04/18 History multivitamin-iron (hematinic) 1 tab PO DAILY 08/04/18 08/04/18 History [Central-Maria L] phenyleph-min oil-petrolatum 1 applic TOPICAL DAILY 08/04/18 08/04/18 History [Preparation H] polyethylene glycol 3350 [Miralax] 17 g PO DAILY PRN 08/04/18 08/04/18 History Allergies Allergy/AdvReac Type Severity Reaction Status Date / Time codeine Allergy Unverified 05/21/18 13:55 divalproex sodium Allergy Unverified 05/21/18 13:55 [From Depakote] povidone-iodine AdvReac Skin Rash Unverified 05/21/18 13:55 [From Betadine] soap [From Betadine] AdvReac Skin Rash Unverified 05/21/18 13:55 Exam Narrative Exam Narrative: General: Alert and oriented to self, place, and month (though she could not remember the year). She does not appear in acute distress. HEENT: Atraumatic. Conjunctive are clear with no icterus. Both eyelids hang low, but symmetric. Pupils equal round reactive to light with extraocular motion intact. Mucous membranes are slightly dry, no oral pharyngeal lesions. Neck supple with no masses, only neck angle to the left. Cardiovascular: Regular rate and rhythm with 3 out of 6 systolic murmur at the next to the axilla. No gallops or rubs. Lungs: Clear to auscultation bilaterally with normal effort. Abdomen: Active bowel sounds. Soft. Nondistended. Mild epigastric and lower quadrant tenderness on both sides. No guarding. Extremities: No cyanosis or clubbing. Large fistula in left arm. Trace bilateral edema shins in the lower extremity. Legs are nontender to palpation. Neurologic: Cranial nerves grossly intact. Moving 4 extremities with normal coordination. No tremor. Speech is intelligible. Skin: No rashes. Scattered small bruises including sites of placement. Results Labs : 08/04/18 19:50 08/04/18 19:50 Laboratory Results - last 24 hr 08/04/18 08/04/18 08/04/18 19:50 19:50 19:50 WBC 9.28 RBC 4.75 Hgb 13.6 Hct 38.5 MCV 81.1 MCH 28.6 MCHC 35.3 RDW 14.4 Plt Count 255 MPV 8.8 Immature Gran % 0.2 Neutrophils % 79.0 Lymphocytes % 12.1 Monocytes % 8.5 Eosinophils % 0.1 Basophils % 0.1 Absolute Neutrophils 7.33 H Absolute Lymphocytes 1.12 L Absolute Monocytes 0.79 H Absolute Eosinophils 0.01 Absolute Basophils 0.01 PT 50.3 H INR 4.9 H* Sodium 126 L Potassium 3.7 Chloride 90 L Carbon Dioxide 24.3 Anion Gap 11.7 H BUN 17 Creatinine 0.59 Estimated GFR/1.73 m2 >= 60.00 Glucose 131 H Calcium 8.7 Magnesium 1.3 L Total Bilirubin 1.6 H AST 25 ALT 18 Alkaline Phosphatase 59 Total Protein 7.0 Albumin 3.7 Urine Color Urine Clarity Urine pH Ur Specific [place] Urine Protein Urine Ketones Urine Blood Urine Nitrite Urine Bilirubin Urine Urobilinogen Ur Leukocyte Esterase Urine RBC Urine WBC Ur Epithelial Cells Urine Crystals Urine Bacteria Urine Casts Urine Mucus Ur Culture Indicated? Urine Glucose 08/04/18 20:03 WBC RBC Hgb Hct MCV MCH MCHC RDW Plt Count MPV Immature Gran % Neutrophils % Lymphocytes % Monocytes % Eosinophils % Basophils % Absolute Neutrophils Absolute Lymphocytes Absolute Monocytes Absolute Eosinophils Absolute Basophils PT INR Sodium Potassium Chloride Carbon Dioxide Anion Gap BUN Creatinine Estimated GFR/1.73 m2 Glucose Calcium Magnesium Total Bilirubin AST ALT Alkaline Phosphatase Total Protein Albumin Urine Color Yellow Urine Clarity Clear Urine pH 6.0 Ur Specific [place] 1.025 Urine Protein 100 H Urine Ketones 80 H Urine Blood Moderate H Urine Nitrite Negative Urine Bilirubin Negative Urine Urobilinogen 2.0 H Ur Leukocyte Esterase Trace H Urine RBC 10-20 H Urine WBC >50 Ur Epithelial Cells Few Urine Crystals Rare calcium oxalate Urine Bacteria Rare Urine Casts Negative Urine Mucus Moderate Ur Culture Indicated? Yes Urine Glucose Negative Last Vital Signs Temp 37.1 C 08/04/18 20:17 Pulse 89 08/04/18 22:30 Resp 19 08/04/18 22:31 BP 187/75 H 08/04/18 22:30 Pulse Ox 95 08/04/18 21:15
--- NOTE | 2018-08-04 23:00 | HPE_ITS ---
Date of service: 08/04/18 Time of Service: 22:52 Assessment and Plan (1) Pyelonephritis of transplanted kidney: Current visit: Yes Status: Acute Dr. Slaughter case with transplant specialist from [facility] [place]. Case is p yelonephritis kidney abnormal sensation, also complicated by urinary retention. I will continue ceftriaxone with urine culture pending. Plan is for the hours of IV therapy, then transition to oral second or third generation cephalosporin pending culture results or prolonged course of treatment 21 days. Will ultrasound kidneys to look for complications of infections or reasons for recurrence. He does not appear septic currently. If she became hypotensive, I would stress dose steroids given her chronic prednisone therapy. I think infection is cause of mild mental status changes (toxic encephalopathy), though low Na could be contributing as well. (2) Hypertension: Current visit: Yes Status: Chronic Blood pressures are high currently, which is not typical for her. Given blood pressure isn't dangerously high will monitor for now. (3) S/P kidney transplant: Current visit: Yes Status: Acute As above case reviewed with Dr. Mina from [facility] [place] transplant. Continue her chronic anti-rejection medications for now, though we may consider holding if she gets sicker. Monitor renal function, which is excellent now. (4) Neurogenic bladder: Current visit: Yes Status: Acute Chronic CIC at home, kidd here for now. (5) Hypercoagulable state, primary: Current visit: Yes Status: Acute holding warfarin due to elevated INR, follow and restart when needed. No sign of active bleed. (6) Seizure disorder: Current visit: Yes Status: Chronic no recent activity, continue keppra (7) Diarrhea: Current visit: Yes Status: Acute With recent antibiotic use, get c. dif testing if this persists. I think electrolyte abnormalities with low Na and Mg related to diarrhea with some dehydration. Replacing now and will follow. (8) DVT prophylaxis: Current visit: Yes Status: Acute as above INR supratherapeutic currently. (9) Discharge planning issues: Current visit: Yes Status: Acute Full Code, will be admitted to medical floor. History of Present Illness Chief Complaint: malaise, decrease urine output Narrative: 53-year-old female, with a intellectual disability living in a jail, hypercoagulable state on warfarin, status post renal transplant on triple therapy or suppression, and chronic urinary retention with recurrent UTIs who presents with some malaise, decreased urine output, diarrhea, and slight confusion. Patient was in her normal state of health until 2 days ago. He started feeling a little dizzy and started getting diarrhea and eating less. She continued to take recommended 2 L of fluids per day. She has had about 5 episodes of watery diarrhea since day, 2 days prior to admission. She has been nauseous, and vomited for the first time this afternoon. He denies fevers, but her sister has noted she looks clammy and feels cold. She has had similar nonspecific symptoms with urinary tract infections in the past. We last treated for a UTI on July 20. The culture grew E. coli sensitive to support and she was treated with 10 days of Keflex. He does take Bactrim chronically for UTI prevention. Review of Systems Review of Systems As per HPI. Additionally, no fevers, but feeling cold and clammy. No weight changes. No headache or vision changes. Some nasal congestion, no sore throat or oral lesions. No cough or wheezing. No chest pain or palpitations. She does have some abdominal pain. No blood in stool or melena. No blood in urine. Urine has been quite dark. The baseline, continues to do intermittent catheterization. No vaginal bleeding or discharge. No new joint pain or swelling. No rashes or other skin lesions. No seizures or other abnormal movements. PENDING SALE TO [facility] Medical History Chronic anticoagulation Chronic kidney disease Convulsions Hyperparathyroidism Neurogenic bladder Osteoporosis Peripheral neuropathy Protein S deficiency TBI (traumatic brain injury) Surgical History Colonoscopy - MAC (02/11/15) Fistula creation Renal Transplant Social History Smoking/Tobacco Use Status: Never Drug use: Never Do you feel safe at home: Yes Do you feel safe in your relationship?: Yes Additional Social history: Lives in jail in [place]. Has VNA care there as well. Meds Home Medications Medication Instructions Recorded Confirmed Type acetaminophen [Tylenol] 650 mg PO PRN 08/15/13 05/21/18 History alendronate 70 mg PO DIRECTED 08/15/13 05/21/18 History amoxicillin 1,000 mg PO DIRECTED 08/15/13 05/21/18 History cetirizine 10 mg PO PRN 08/15/13 05/21/18 History citalopram 20 mg PO DAILY 08/15/13 05/21/18 History esomeprazole magnesium [Nexium] 40 mg PO PRN 08/15/13 05/21/18 History levetiracetam [Keppra] 1,500 mg PO BID 08/15/13 05/21/18 History mycophenolate mofetil 250 mg PO BID 08/15/13 05/21/18 History prednisone 5 mg PO DIRECTED 08/15/13 05/21/18 History simethicone [Gas-X Extra Strength] 1 - 2 cap PO PRN 08/15/13 05/21/18 History sulfamethoxazole-trimethoprim 1 tab PO DAILY 08/15/13 05/21/18 History [Bactrim] tacrolimus [Prograf] 3 mg PO BID 08/15/13 05/21/18 History warfarin [Coumadin] 3 - 4 mg PO DIRECTED 08/15/13 05/21/18 History ascorbic acid (vitamin C) [Vitamin 1 tab PO TID 02/09/15 05/21/18 History C] acyclovir [Zovirax] 1 applic TOPICAL DAILY PRN 08/04/18 08/04/18 History bacitracin 1 applic 08/04/18 History d-mannose 500 pwd 08/04/18 History dimethicone-zinc oxide [Nii 1 applic TOPICAL . DIRECTED PRN 08/04/18 08/04/18 History Protect] docusate sodium 100 mg PO DAILY PRN 08/04/18 08/04/18 History fluocinonide 1 applic TOPICAL DAILY PRN 08/04/18 08/04/18 History guaifenesin [Tussin] 200 mg PO DAILY PRN 08/04/18 08/04/18 History hydrocortisone 1 applic TOPICAL DAILY PRN 08/04/18 08/04/18 History loperamide 2 mg PO . DIRECTED PRN 08/04/18 08/04/18 History menthol [Biofreeze (menthol)] 1 % TOPICAL . DIRECTED PRN 08/04/18 08/04/18 History multivitamin-iron (hematinic) 1 tab PO DAILY 08/04/18 08/04/18 History [Central-Maria L] phenyleph-min oil-petrolatum 1 applic TOPICAL DAILY 08/04/18 08/04/18 History [Preparation H] polyethylene glycol 3350 [Miralax] 17 g PO DAILY PRN 08/04/18 08/04/18 History Allergies Allergy/AdvReac Type Severity Reaction Status Date / Time codeine Allergy Unverified 05/21/18 13:55 divalproex sodium Allergy Unverified 05/21/18 13:55 [From Depakote] povidone-iodine AdvReac Skin Rash Unverified 05/21/18 13:55 [From Betadine] soap [From Betadine] AdvReac Skin Rash Unverified 05/21/18 13:55 Exam Narrative Exam Narrative: General: Alert and oriented to self, place, and month (though she could not remember the year). She does not appear in acute distress. HEENT: Atraumatic. Conjunctive are clear with no icterus. Both eyelids hang low, but symmetric. Pupils equal round reactive to light with extraocular motion intact. Mucous membranes are slightly dry, no oral pharyngeal lesions. Neck supple with no masses, only neck angle to the left. Cardiovascular: Regular rate and rhythm with 3 out of 6 systolic murmur at the next to the axilla. No gallops or rubs. Lungs: Clear to auscultation bilaterally with normal effort. Abdomen: Active bowel sounds. Soft. Nondistended. Mild epigastric and lower quadrant tenderness on both sides. No guarding. Extremities: No cyanosis or clubbing. Large fistula in left arm. Trace bilateral edema shins in the lower extremity. Legs are nontender to palpation. Neurologic: Cranial nerves grossly intact. Moving 4 extremities with normal coordination. No tremor. Speech is intelligible. Skin: No rashes. Scattered small bruises including sites of placement. Results Labs : 08/04/18 19:50 08/04/18 19:50 Laboratory Results - last 24 hr 08/04/18 08/04/18 08/04/18 19:50 19:50 19:50 WBC 9.28 RBC 4.75 Hgb 13.6 Hct 38.5 MCV 81.1 MCH 28.6 MCHC 35.3 RDW 14.4 Plt Count 255 MPV 8.8 Immature Gran % 0.2 Neutrophils % 79.0 Lymphocytes % 12.1 Monocytes % 8.5 Eosinophils % 0.1 Basophils % 0.1 Absolute Neutrophils 7.33 H Absolute Lymphocytes 1.12 L Absolute Monocytes 0.79 H Absolute Eosinophils 0.01 Absolute Basophils 0.01 PT 50.3 H INR 4.9 H* Sodium 126 L Potassium 3.7 Chloride 90 L Carbon Dioxide 24.3 Anion Gap 11.7 H BUN 17 Creatinine 0.59 Estimated GFR/1.73 m2 >= 60.00 Glucose 131 H Calcium 8.7 Magnesium 1.3 L Total Bilirubin 1.6 H AST 25 ALT 18 Alkaline Phosphatase 59 Total Protein 7.0 Albumin 3.7 Urine Color Urine Clarity Urine pH Ur Specific [place] Urine Protein Urine Ketones Urine Blood Urine Nitrite Urine Bilirubin Urine Urobilinogen Ur Leukocyte Esterase Urine RBC Urine WBC Ur Epithelial Cells Urine Crystals Urine Bacteria Urine Casts Urine Mucus Ur Culture Indicated? Urine Glucose 08/04/18 20:03 WBC RBC Hgb Hct MCV MCH MCHC RDW Plt Count MPV Immature Gran % Neutrophils % Lymphocytes % Monocytes % Eosinophils % Basophils % Absolute Neutrophils Absolute Lymphocytes Absolute Monocytes Absolute Eosinophils Absolute Basophils PT INR Sodium Potassium Chloride Carbon Dioxide Anion Gap BUN Creatinine Estimated GFR/1.73 m2 Glucose Calcium Magnesium Total Bilirubin AST ALT Alkaline Phosphatase Total Protein Albumin Urine Color Yellow Urine Clarity Clear Urine pH 6.0 Ur Specific [place] 1.025 Urine Protein 100 H Urine Ketones 80 H Urine Blood Moderate H Urine Nitrite Negative Urine Bilirubin Negative Urine Urobilinogen 2.0 H Ur Leukocyte Esterase Trace H Urine RBC 10-20 H Urine WBC >50 Ur Epithelial Cells Few Urine Crystals Rare calcium oxalate Urine Bacteria Rare Urine Casts Negative Urine Mucus Moderate Ur Culture Indicated? Yes Urine Glucose Negative Last Vital Signs Temp 37.1 C 08/04/18 20:17 Pulse 89 08/04/18 22:30 Resp 19 08/04/18 22:31 BP 187/75 H 08/04/18 22:30 Pulse Ox 95 08/04/18 21:15
[2018-08-04] MEDS: Ondansetron O.D.T. 4 MG TABEF PO (23:57)
[2018-08-04] MEDS: Normal Saline Flush 10 ML SYR IVP (23:58)
[2018-08-04] MEDS: POTASSIUM CHLORIDE/0.9% NACL 1,000 ML 120 MEQ IV (23:58)
[2018-08-05] MEDS: MAGNESIUM SULFATE 1 GM/100 ML BAG IVPB ×2 (00:11→15:58)
[2018-08-05 03:25] VITALS: BP 157/82; PULSE 90; RESP 20; TEMP 36.8; O2SAT 97
--- NOTE | 2018-08-05 06:00 | DI.US_ITS ---
SYMPTOM/DIAGNOSIS: RECURRENT UTI, NOW WITH PYELONEPHRITIS, S/P TRANSPLANT, NEUROGENIC BLADDER RENAL ULTRASOUND: Comparison is made with 08/21/16. The left kidney is not visualized. There is a right kidney which measures 10.8 cm. in length. Reportedly the right kidney is a transplant. No renal mass, calculus or obstruction is seen. The prevoid urinary bladder volume is 11 cc's. There is a kidd catheter within the urinary bladder. Postvoid urinary bladder volume is 0. Evaluation of the bladder is limited due to decreased volume. IMPRESSION: Single right kidney,reportedly a transplant kidney. No hydronephrosis or nephrolithiasis.
[2018-08-05 07:26] LABS: Prothrombin Time 52.8 sec (9.3-11.0)
[2018-08-05 07:28] LABS: Anion Gap 10.2 mmol/L (3-11); BUN 18 mg/dL (7-18); CO2 23.8 mmol/L (21.0-32.0); CREATININE 0.58 mg/dL (0.55-1.02); Calcium 8.3 mg/dL (8.5-10.1); Chloride 92 mmol/L (98-107); Glucose 162 mg/dL (70-100); Magnesium 1.7 mg/dL (1.8-2.4); Potassium 3.8 mmol/L (3.5-5.1); Sodium 126 mmol/L (136-145)
[2018-08-05 07:34] LABS: Abs Immature Grans 0.02 k/cumm (0.0-0.09); Absolute Basophil Count 0.01 k/cumm (0.0-0.2); Absolute Lymphocyte Count 0.73 k/cumm (1.2-3.4); Absolute Monocyte Count 0.94 k/cumm (0.11-0.7); Basophils % 0.1; Eosinophils % 0.4; HCT 40.5 % (36.0-46.0); Immature Grans % 0.2; Lymphocytes % 6.4; Mean Corp. HGB Concentration 34.6 g/dL (32.0-36.0); Mean Corpuscular Hemoglobin 28.2 pg (27.0-33.0); Mean Corpuscular Volume 81.5 fL (80-95); Monocytes % 8.3; Neutrophils % 84.6; Platelet Count 299 x1000/uL (130-400); RBC 4.97 m/cumm (4.00-5.20); RBC Distribution Width 14.5 % (11.7-14.6); White Blood Cell Count 11.35 k/cumm (4.4-10.8)
[2018-08-05 07:35] LABS: Absolute Eosinophil Count 0.05 k/cumm (0.0-0.7)
[2018-08-05 07:38] LABS: INR 5.2 (0.9-1.1)
[2018-08-05 07:40] VITALS: BP 90/54; PULSE 80; RESP 16; TEMP 36.3; O2SAT 96
[2018-08-05] MEDS: Tacrolimus 0.5 MG CAP 3 MG PO (08:06)
[2018-08-05] MEDS: levETIRAcetam 500 MG TAB 1500 MG PO (08:06)
[2018-08-05] MEDS: Acetaminophen 325 MG TAB PO (08:07)
[2018-08-05] MEDS: Ondansetron O.D.T. 4 MG TABEF PO ×3 (08:08→18:15)
[2018-08-05] MEDS: Normal Saline Flush 10 ML SYR IVP ×2 (08:08→10:59)
[2018-08-05] MEDS: Citalopram 20 MG TAB PO (08:08)
[2018-08-05] MEDS: Ascorbic Acid 500 MG TAB PO ×2 (08:08→13:22)
[2018-08-05] MEDS: POTASSIUM CHLORIDE/0.9% NACL 1,000 ML 120 MEQ IV (09:26)
[2018-08-05 10:35] VITALS: O2SAT 96
--- NOTE | 2018-08-05 10:43 | PDOC.CMIN ---
Care Management Initial Assess REASON FOR HOSPITALIZATION:: pyelonephritis of transplanted kidney. PAST MEDICAL HISTORY/PAST SURGICAL HISTORY:: Medical: chronic anticoagulation, CKD, convulsions, hyperparathyroidism, neurogenic bladder, osteoporosis, peripheral neuropathy, protein S deficiency, TBI. Surgical: colonoscopy, fistula creation, renal transplant. PREVIOUS FUNCTIONAL STATUS/SOCIAL/FAMILY SUPPORTS:: Darlene is 53 yo single woman who lives in a women's shelter in [place]. She has been there for several years. She has a sister, Nicol Gruber, who is her legal guardian. Her sister was apparently present on admission and reported that Darlene is usually not confused at baseline. She gets her care from staff at shelter and also has HH services. CURRENT FUNCTIONAL STATUS:: She requires max assist of 2 for all transfers. She is very anxious, especially about prospect of going [place] [facility] ADVANCE DIRECTIVES:: Sister Nallely Gruber is her court appointed legal guardian. Copy of appointment is scanned into her record. Has patient been provided with information about the portal?: No Did the patient sign up for the portal?: No CODE STATUS:: Full Code INSURANCE COVERAGE / FINANCIAL ISSUES:: Medicare. Medicaid CURRENT HOME/COMMUNITY SERVICES/EQUIPMENT:: She is followed by [facility]. Has raised toilet seat, tub seat, HH shower, wheelchair and walker for home use. PRIMARY CARE PHYSICIAN:: Nader Dobson MD POTENTIAL DISCHARGE NEEDS:: It is anticipated she will require transfer [place] [facility] [place]. Will require ambulance transport. PATIENT/FAMILY EDUCATION NEEDS:: Review d/c plans with patient and family. Sister/guardian has already been contacted. Darlene wanted her sister to ride in ambulance with her, but sister states she would then not have car with her. Sister indicaes she will plan to meet Darlene at [facility] when she gets there. Sister will be notified when she is being transported. ANTICIPATED BARRIERS TO DISCHARGE:: none anticipated TRANSPORTATION:: ambulance transport. PLAN:: D/C to [facility] as per when bed available.
[2018-08-05] MEDS: Hydrocortisone SOD SUC. 100 MG VIAL IVP (10:58)
[2018-08-05 11:44] VITALS: BP 148/83; PULSE 90; RESP 18; TEMP 36.2; O2SAT 94
[2018-08-05] MEDS: Furosemide 20 MG/2 ML VIAL IVP (14:24)
--- NOTE | 2018-08-05 14:50 | W.PM.DS.N ---
Date of service: 08/05/18 Time of Service: 14:50 DS: Diagnosis Discharge Diagnosis (1) Pyelonephritis of transplanted kidney: Status: Acute (2) Hypertension: Status: Chronic (3) S/P kidney transplant: Status: Acute (4) Neurogenic bladder: Status: Acute (5) Hypercoagulable state, primary: Status: Acute (6) Seizure disorder: Status: Chronic (7) Diarrhea: Status: Acute (8) Dilutional hyponatremia: Status: Acute (9) Supratherapeutic INR: Status: Acute Discharge Plan Disposition Patient Disposition: [facility] Condition: Serious Discharge Details Reason For Visit: PYELONEPHRITIS Admit Date/Time: 08/04/18 22:40 Admit Provider: Leonard Nieto Attending Provider: Leonard Nieto Primary Care Provider: Nader Dobson [facility] Course Hospital Course: Ms Farah is a 53 year old female who is s/p her now 3rd kidney transplant, on triple immunosuppressive therapy, as well as urinary retention, Protein S deficiency on antiocoagulation with coumadin, h/o TBI, and seizure disorder on keppra, who was admitted to [facility] on 08/04/18 for acute pyelonephritis of the transplanted kidney. Based on her urine culture data from prior UTI's, the patient was started on IV ceftriaxone. She is also being treated with stress dose steroids as she is on chronic prednisone therapy and is now ill and was starting to become symptomatically adrenally insufficient. She was continued on her oral immunosuppresive therapy with prograf and mycophenolate, but, unfortunately, has developed nausea and vomiting and cannot reliably take these medications. 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 She was accepted at [facility] for transfer by Dr Duran of hospitalist medicine with Dr Mina of transplant medicine as consulting. The patient and her guardian (her sister Nicol) are in agreement with transfer, and the patient is hemodynamically stable for transfer at this time. We appreciate the help of our [facility] colleagues and wish the patient well. Home Meds and New Rx's Prescriptions: New ondansetron 4 mg Tablet,Disintegrating 4 mg PO Q8H PRN PRNQty: 0 RF: 0 esomeprazole sodium 40 mg Recon Soln 40 mg IVP DAILY Qty: 0 RF: 0 ceftriaxone in dextrose,iso-os 1 gram/50 mL Piggyback 1 g IVPB Q24H Qty: 0 RF: 0 Solu-Cortef (PF) 100 mg/2 mL Recon Soln 50 mg IVP Q6H Qty: 0 RF: 0 Continued acetaminophen [Tylenol] 325 MG tablet 650 mg PO PRN RF: 0 cetirizine 10 MG tablet 10 mg PO PRN RF: 0 mycophenolate mofetil 250 MG capsule 250 mg PO BID RF: 0 alendronate 70 MG tablet 70 mg PO DIRECTED RF: 0 simethicone [Gas-X Extra Strength] 125 MG capsule 1 - 2 cap PO PRN RF: 0 citalopram 20 MG tablet 20 mg PO DAILY RF: 0 esomeprazole magnesium [Nexium] 40 MG capsule,delayed release(DR/EC) 40 mg PO PRN RF: 0 levetiracetam [Keppra] 750 MG tablet 1,500 mg PO BID RF: 0 tacrolimus [Prograf] 1 MG capsule 3 mg PO BID RF: 0 ascorbic acid (vitamin C) [Vitamin C] 500 MG tablet 1 tab PO TID RF: 0 loperamide 2 mg Capsule 2 mg PO . DIRECTED PRNRF: 0 bacitracin 500 unit/gram Ointment 1 applic RF: 0 guaifenesin [Tussin] 100 mg/5 mL Liquid 200 mg PO DAILY PRNRF: 0 hydrocortisone 1 % Cream 1 applic topical DAILY PRNRF: 0 docusate sodium 100 mg Capsule 100 mg PO DAILY PRNRF: 0 polyethylene glycol 3350 [Miralax] 17 gram/dose Powder 17 g PO DAILY PRNRF: 0 fluocinonide 0.05 % Cream 1 applic topical DAILY PRNRF: 0 Central-Maria L Tablet 1 tab PO DAILY RF: 0 acyclovir [Zovirax] 5 % Cream 1 applic topical DAILY PRNRF: 0 Nii Protect Cream 1 applic topical . DIRECTED PRNRF: 0 d-mannose Powder 500 pwd RF: 0 Biofreeze (menthol) 4 % Gel 1 % topical . DIRECTED PRNRF: 0 Preparation H 0.25-14-74.9 % Ointment 1 applic topical DAILY RF: 0 Discontinued sulfamethoxazole-trimethoprim [Bactrim] 1 EACH tablet 1 tab PO DAILY RF: 0 prednisone 5 MG tablet 5 mg PO DIRECTED RF: 0 amoxicillin 500 MG tablet 2,000 mg PO DIRECTED RF: 0 warfarin [Coumadin] 1 MG tablet 3 - 4 mg PO DIRECTED RF: 0 Discharge Instructions Activity:: Activity as Tolerated Diet:: As Tolerated Discharge Orders Discharge Orders: Discharge Order (Routine); Ordered 08/05/18 Ordered By: Renée Dumont Exam Narrative Exam Narrative: General: A&OX3, NAD HEENT: EOMI, MMM Heart: RRR, quiet AI Lungs: CTAB Abdomen: soft, nontender, nondistended Extemities: 1+ BLE edema, no c/c; LUE AV fistula DS: Data Vitals/I&O Vitals and I&O: Vital Signs Temperature 36.2 C L 08/05/18 11:44 Temperature Source Tympanic 08/05/18 11:44 Pulse 90 08/05/18 11:44 Pulse Rhythm Irregular 08/05/18 11:16 Pulse 94 H 08/04/18 23:10 Respiratory Rate 18 08/05/18 11:44 Respiratory Effort 08/05/18 11:16 Respiratory Depth Normal 08/05/18 11:16 Respiratory Pattern Normal 08/05/18 11:16 Blood Pressure 148/83 H 08/05/18 11:44 Blood Pressure Mean 100 08/04/18 23:01 Pulse Oximetry 94 L 08/05/18 11:44 Oxygen Delivery Method Room Air 08/05/18 11:44 Oxygen Flow Rate 0 08/05/18 11:44 Pain Level 1 08/05/18 11:44 Intake & Output 08/04/18 08/05/18 08/05/18 23:59 11:59 23:59 Intake Total 2630 / 3472 842 / 3472 Output Total 65 / 65 250 / 250 Balance -65 5 2380 / 3222 842 / 3222 Weight 58.5 kg 59.3 kg Intake: IV 2110 / 2712 602 / 2712 Oral 520 / 760 240 / 760 Output: Urine 65 / 65 150 / 150 Emesis 100 / 100 Other: Urine Color Straw Dark Mirella Urine Appearance Clear Clear Stool Size Small Stool Characteristics Liquid Emesis Description Bile Mucous Completed studies during hospitalization [Text1]: US renal: Single right kidney,reportedly a transplant kidney. No hydronephrosis or nephrolithiasis. Labs on day of discharge: Labs from last 24 hours 08/05/18 08/05/18 08/05/18 06:55 06:55 06:55 WBC 11.35 H RBC 4.97 Hgb 14.0 Hct 40.5 MCV 81.5 MCH 28.2 MCHC 34.6 RDW 14.5 Plt Count 299 MPV 9.0 Immature Gran % 0.2 Neutrophils % 84.6 Lymphocytes % 6.4 Monocytes % 8.3 Eosinophils % 0.4 Basophils % 0.1 Absolute Neutrophils 9.60 H Absolute Lymphocytes 0.73 L Absolute Monocytes 0.94 H Absolute Eosinophils 0.05 Absolute Basophils 0.01 PT 52.8 H INR 5.2 H* Sodium 126 L Potassium 3.8 Chloride 92 L Carbon Dioxide 23.8 Anion Gap 10.2 BUN 18 Creatinine 0.58 Estimated GFR/1.73 m2 >= 60.00 Glucose 162 H Calcium 8.3 L Magnesium 1.7 L Total Bilirubin AST ALT Alkaline Phosphatase Total Protein Albumin Urine Color Urine Clarity Urine pH Ur Specific [place] Urine Protein Urine Ketones Urine Blood Urine Nitrite Urine Bilirubin Urine Urobilinogen Ur Leukocyte Esterase Urine RBC Urine WBC Ur Epithelial Cells Urine Crystals Urine Bacteria Urine Casts Urine Mucus Ur Culture Indicated? Urine Glucose 08/04/18 08/04/18 08/04/18 20:03 19:50 19:50 WBC 9.28 RBC 4.75 Hgb 13.6 Hct 38.5 MCV 81.1 MCH 28.6 MCHC 35.3 RDW 14.4 Plt Count 255 MPV 8.8 Immature Gran % 0.2 Neutrophils % 79.0 Lymphocytes % 12.1 Monocytes % 8.5 Eosinophils % 0.1 Basophils % 0.1 Absolute Neutrophils 7.33 H Absolute Lymphocytes 1.12 L Absolute Monocytes 0.79 H Absolute Eosinophils 0.01 Absolute Basophils 0.01 PT 50.3 H INR 4.9 H* Sodium Potassium Chloride Carbon Dioxide Anion Gap BUN Creatinine Estimated GFR/1.73 m2 Glucose Calcium Magnesium Total Bilirubin AST ALT Alkaline Phosphatase Total Protein Albumin Urine Color Yellow Urine Clarity Clear Urine pH 6.0 Ur Specific [place] 1.025 Urine Protein 100 H Urine Ketones 80 H Urine Blood Moderate H Urine Nitrite Negative Urine Bilirubin Negative Urine Urobilinogen 2.0 H Ur Leukocyte Esterase Trace H Urine RBC 10-20 H Urine WBC >50 Ur Epithelial Cells Few Urine Crystals Rare calcium oxalate Urine Bacteria Rare Urine Casts Negative Urine Mucus Moderate Ur Culture Indicated? Yes Urine Glucose Negative 08/04/18 19:50 WBC RBC Hgb Hct MCV MCH MCHC RDW Plt Count MPV Immature Gran % Neutrophils % Lymphocytes % Monocytes % Eosinophils % Basophils % Absolute Neutrophils Absolute Lymphocytes Absolute Monocytes Absolute Eosinophils Absolute Basophils PT INR Sodium 126 L Potassium 3.7 Chloride 90 L Carbon Dioxide 24.3 Anion Gap 11.7 H BUN 17 Creatinine 0.59 Estimated GFR/1.73 m2 >= 60.00 Glucose 131 H Calcium 8.7 Magnesium 1.3 L Total Bilirubin 1.6 H AST 25 ALT 18 Alkaline Phosphatase 59 Total Protein 7.0 Albumin 3.7 Urine Color Urine Clarity Urine pH Ur Specific [place] Urine Protein Urine Ketones Urine Blood Urine Nitrite Urine Bilirubin Urine Urobilinogen Ur Leukocyte Esterase Urine RBC Urine WBC Ur Epithelial Cells Urine Crystals Urine Bacteria Urine Casts Urine Mucus Ur Culture Indicated? Urine Glucose 08/04/18 20:03 Urine - Reflex from Urine Culture - Pending Preliminary micro results at discharge 08/04/18 20:03 Urine Culture - Pending Urine - Reflex from [facility] Medical History Chronic anticoagulation Chronic kidney disease Convulsions Hyperparathyroidism Neurogenic bladder Osteoporosis Peripheral neuropathy Protein S deficiency TBI (traumatic brain injury) Surgical History Colonoscopy - MAC (02/11/15) Fistula creation Renal Transplant Social History Smoking/Tobacco Use Status: Never Drug use: Never Do you feel safe at home: Yes Do you feel safe in your relationship?: Yes Additional Social history: Lives in correction in [place]. Has VNA care there as well.
--- NOTE | 2018-08-05 15:01 | DSE_ITS ---
Date of service: 08/05/18 Time of Service: 14:50 DS: Diagnosis Discharge Diagnosis (1) Pyelonephritis of transplanted kidney: Status: Acute (2) Hypertension: Status: Chronic (3) S/P kidney transplant: Status: Acute (4) Neurogenic bladder: Status: Acute (5) Hypercoagulable state, primary: Status: Acute (6) Seizure disorder: Status: Chronic (7) Diarrhea: Status: Acute (8) Dilutional hyponatremia: Status: Acute (9) Supratherapeutic INR: Status: Acute Discharge Plan Disposition Patient Disposition: [facility] Condition: Serious Discharge Details Reason For Visit: PYELONEPHRITIS Admit Date/Time: 08/04/18 22:40 Admit Provider: Leonard Nieto Attending Provider: Leonard Nieto Primary Care Provider: Nader Dobson [facility] Course Hospital Course: Ms Farah is a 53 year old female who is s/p her now 3rd kidney transplant, on triple immunosuppressive therapy, as well as urinary retention, Protein S deficiency on antiocoagulation with coumadin, h/o TBI, and seizure disorder on keppra, who was admitted to [facility] on 08/04/18 for acute pyelonephritis of the transplanted kidney. Based on her urine culture data from prior UTI's, the patient was started on IV ceftriaxone. She is also being treated with stress dose steroids as she is on chronic prednisone therapy and is now ill and was starting to become symptomatically adrenally insufficient. She was continued on her oral immunosuppresive therapy with prograf and mycophenolate, but, unfortunately, has developed nausea and vomiting and cannot reliably take these medications. 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 with real time results (it is a send out lab that takes at least 3-4 days to get the result back) and not having IV formulations of immunosuppressive drugs on our formulary, it is felt that the patient would benefit from transfer to a tertiary care facility where these options are available. She was accepted at [facility] for transfer by Dr Duran of hospitalist medicine with Dr Mina of transplant medicine as consulting. The patient and her guardian (her sister Nicol) are in agreement with transfer, and the patient is hemodynamically stable for transfer at this time. We appreciate the help of our [facility] colleagues and wish the patient well. Home Meds and New Rx's Prescriptions: New ondansetron 4 mg Tablet,Disintegrating 4 mg PO Q8H PRN PRNQty: 0 RF: 0 esomeprazole sodium 40 mg Recon Soln 40 mg IVP DAILY Qty: 0 RF: 0 ceftriaxone in dextrose,iso-os 1 gram/50 mL Piggyback 1 g IVPB Q24H Qty: 0 RF: 0 Solu-Cortef (PF) 100 mg/2 mL Recon Soln 50 mg IVP Q6H Qty: 0 RF: 0 Continued acetaminophen [Tylenol] 325 MG tablet 650 mg PO PRN RF: 0 cetirizine 10 MG tablet 10 mg PO PRN RF: 0 mycophenolate mofetil 250 MG capsule 250 mg PO BID RF: 0 alendronate 70 MG tablet 70 mg PO DIRECTED RF: 0 simethicone [Gas-X Extra Strength] 125 MG capsule 1 - 2 cap PO PRN RF: 0 citalopram 20 MG tablet 20 mg PO DAILY RF: 0 esomeprazole magnesium [Nexium] 40 MG capsule,delayed release(DR/EC) 40 mg PO PRN RF: 0 levetiracetam [Keppra] 750 MG tablet 1,500 mg PO BID RF: 0 tacrolimus [Prograf] 1 MG capsule 3 mg PO BID RF: 0 ascorbic acid (vitamin C) [Vitamin C] 500 MG tablet 1 tab PO TID RF: 0 loperamide 2 mg Capsule 2 mg PO . DIRECTED PRNRF: 0 bacitracin 500 unit/gram Ointment 1 applic RF: 0 guaifenesin [Tussin] 100 mg/5 mL Liquid 200 mg PO DAILY PRNRF: 0 hydrocortisone 1 % Cream 1 applic topical DAILY PRNRF: 0 docusate sodium 100 mg Capsule 100 mg PO DAILY PRNRF: 0 polyethylene glycol 3350 [Miralax] 17 gram/dose Powder 17 g PO DAILY PRNRF: 0 fluocinonide 0.05 % Cream 1 applic topical DAILY PRNRF: 0 Central-Maria L Tablet 1 tab PO DAILY RF: 0 acyclovir [Zovirax] 5 % Cream 1 applic topical DAILY PRNRF: 0 Nii Protect Cream 1 applic topical . DIRECTED PRNRF: 0 d-mannose Powder 500 pwd RF: 0 Biofreeze (menthol) 4 % Gel 1 % topical . DIRECTED PRNRF: 0 Preparation H 0.25-14-74.9 % Ointment 1 applic topical DAILY RF: 0 Discontinued sulfamethoxazole-trimethoprim [Bactrim] 1 EACH tablet 1 tab PO DAILY RF: 0 prednisone 5 MG tablet 5 mg PO DIRECTED RF: 0 amoxicillin 500 MG tablet 2,000 mg PO DIRECTED RF: 0 warfarin [Coumadin] 1 MG tablet 3 - 4 mg PO DIRECTED RF: 0 Discharge Instructions Activity:: Activity as Tolerated Diet:: As Tolerated Discharge Orders Discharge Orders: Discharge Order (Routine); Ordered 08/05/18 Ordered By: Renée Dumont Exam Narrative Exam Narrative: General: A&OX3, NAD HEENT: EOMI, MMM Heart: RRR, quiet AI Lungs: CTAB Abdomen: soft, nontender, nondistended Extemities: 1+ BLE edema, no c/c; LUE AV fistula DS: Data Vitals/I&O Vitals and I&O: Vital Signs Temperature 36.2 C L 08/05/18 11:44 Temperature Source Tympanic 08/05/18 11:44 Pulse 90 08/05/18 11:44 Pulse Rhythm Irregular 08/05/18 11:16 Pulse 94 H 08/04/18 23:10 Respiratory Rate 18 08/05/18 11:44 Respiratory Effort 08/05/18 11:16 Respiratory Depth Normal 08/05/18 11:16 Respiratory Pattern Normal 08/05/18 11:16 Blood Pressure 148/83 H 08/05/18 11:44 Blood Pressure Mean 100 08/04/18 23:01 Pulse Oximetry 94 L 08/05/18 11:44 Oxygen Delivery Method Room Air 08/05/18 11:44 Oxygen Flow Rate 0 08/05/18 11:44 Pain Level 1 08/05/18 11:44 Intake & Output 08/04/18 08/05/18 08/05/18 23:59 11:59 23:59 Intake Total 2630 / 3472 842 / 3472 Output Total 65 / 65 250 / 250 Balance -65 5 2380 / 3222 842 / 3222 Weight 58.5 kg 59.3 kg Intake: IV 2110 / 2712 602 / 2712 Oral 520 / 760 240 / 760 Output: Urine 65 / 65 150 / 150 Emesis 100 / 100 Other: Urine Color Straw Dark Mirella Urine Appearance Clear Clear Stool Size Small Stool Characteristics Liquid Emesis Description Bile Mucous Completed studies during hospitalization [Text1]: US renal: Single right kidney,reportedly a transplant kidney. No hydronephrosis or nephrolithiasis. Labs on day of discharge: Labs from last 24 hours 08/05/18 08/05/18 08/05/18 06:55 06:55 06:55 WBC 11.35 H RBC 4.97 Hgb 14.0 Hct 40.5 MCV 81.5 MCH 28.2 MCHC 34.6 RDW 14.5 Plt Count 299 MPV 9.0 Immature Gran % 0.2 Neutrophils % 84.6 Lymphocytes % 6.4 Monocytes % 8.3 Eosinophils % 0.4 Basophils % 0.1 Absolute Neutrophils 9.60 H Absolute Lymphocytes 0.73 L Absolute Monocytes 0.94 H Absolute Eosinophils 0.05 Absolute Basophils 0.01 PT 52.8 H INR 5.2 H* Sodium 126 L Potassium 3.8 Chloride 92 L Carbon Dioxide 23.8 Anion Gap 10.2 BUN 18 Creatinine 0.58 Estimated GFR/1.73 m2 >= 60.00 Glucose 162 H Calcium 8.3 L Magnesium 1.7 L Total Bilirubin AST ALT Alkaline Phosphatase Total Protein Albumin Urine Color Urine Clarity Urine pH Ur Specific [place] Urine Protein Urine Ketones Urine Blood Urine Nitrite Urine Bilirubin Urine Urobilinogen Ur Leukocyte Esterase Urine RBC Urine WBC Ur Epithelial Cells Urine Crystals Urine Bacteria Urine Casts Urine Mucus Ur Culture Indicated? Urine Glucose 08/04/18 08/04/18 08/04/18 20:03 19:50 19:50 WBC 9.28 RBC 4.75 Hgb 13.6 Hct 38.5 MCV 81.1 MCH 28.6 MCHC 35.3 RDW 14.4 Plt Count 255 MPV 8.8 Immature Gran % 0.2 Neutrophils % 79.0 Lymphocytes % 12.1 Monocytes % 8.5 Eosinophils % 0.1 Basophils % 0.1 Absolute Neutrophils 7.33 H Absolute Lymphocytes 1.12 L Absolute Monocytes 0.79 H Absolute Eosinophils 0.01 Absolute Basophils 0.01 PT 50.3 H INR 4.9 H* Sodium Potassium Chloride Carbon Dioxide Anion Gap BUN Creatinine Estimated GFR/1.73 m2 Glucose Calcium Magnesium Total Bilirubin AST ALT Alkaline Phosphatase Total Protein Albumin Urine Color Yellow Urine Clarity Clear Urine pH 6.0 Ur Specific [place] 1.025 Urine Protein 100 H Urine Ketones 80 H Urine Blood Moderate H Urine Nitrite Negative Urine Bilirubin Negative Urine Urobilinogen 2.0 H Ur Leukocyte Esterase Trace H Urine RBC 10-20 H Urine WBC >50 Ur Epithelial Cells Few Urine Crystals Rare calcium oxalate Urine Bacteria Rare Urine Casts Negative Urine Mucus Moderate Ur Culture Indicated? Yes Urine Glucose Negative 08/04/18 19:50 WBC RBC Hgb Hct MCV MCH MCHC RDW Plt Count MPV Immature Gran % Neutrophils % Lymphocytes % Monocytes % Eosinophils % Basophils % Absolute Neutrophils Absolute Lymphocytes Absolute Monocytes Absolute Eosinophils Absolute Basophils PT INR Sodium 126 L Potassium 3.7 Chloride 90 L Carbon Dioxide 24.3 Anion Gap 11.7 H BUN 17 Creatinine 0.59 Estimated GFR/1.73 m2 >= 60.00 Glucose 131 H Calcium 8.7 Magnesium 1.3 L Total Bilirubin 1.6 H AST 25 ALT 18 Alkaline Phosphatase 59 Total Protein 7.0 Albumin 3.7 Urine Color Urine Clarity Urine pH Ur Specific [place] Urine Protein Urine Ketones Urine Blood Urine Nitrite Urine Bilirubin Urine Urobilinogen Ur Leukocyte Esterase Urine RBC Urine WBC Ur Epithelial Cells Urine Crystals Urine Bacteria Urine Casts Urine Mucus Ur Culture Indicated? Urine Glucose 08/04/18 20:03 Urine - Reflex from Urine Culture - Pending Preliminary micro results at discharge 08/04/18 20:03 Urine Culture - Pending Urine - Reflex from [facility] Medical History Chronic anticoagulation Chronic kidney disease Convulsions Hyperparathyroidism Neurogenic bladder Osteoporosis Peripheral neuropathy Protein S deficiency TBI (traumatic brain injury) Surgical History Colonoscopy - MAC (02/11/15) Fistula creation Renal Transplant Social History Smoking/Tobacco Use Status: Never Drug use: Never Do you feel safe at home: Yes Do you feel safe in your relationship?: Yes Additional Social history: Lives in skilled nursing in [place]. Has VNA care there as well.
--- NOTE | 2018-08-05 15:06 | INITIAL_ITS ---
Care Management Initial Assess REASON FOR HOSPITALIZATION:: pyelonephritis of transplanted kidney. PAST MEDICAL HISTORY/PAST SURGICAL HISTORY:: Medical: chronic anticoagulation, CKD, convulsions, hyperparathyroidism, neurogenic bladder, osteoporosis, peripheral neuropathy, protein S deficiency, TBI. Surgical: colonoscopy, fistula creation, renal transplant. PREVIOUS FUNCTIONAL STATUS/SOCIAL/FAMILY SUPPORTS:: Darlene is 53 yo single woman who lives in a women's nursing home in [place]. She has been there for several years. She has a sister, Nicol Gruber, who is her legal guardian. Her sister was apparently present on admission and reported that Darlene is usually not confused at baseline. She gets her care from staff at nursing home and also has HH services. CURRENT FUNCTIONAL STATUS:: She requires max assist of 2 for all transfers. She is very anxious, especially about prospect of going to [facility]. ADVANCE DIRECTIVES:: Sister Nallely Gruber is her court appointed legal guardian. Copy of appointment is scanned into her record. Has patient been provided with information about the portal?: No Did the patient sign up for the portal?: No CODE STATUS:: Full Code INSURANCE COVERAGE / FINANCIAL ISSUES:: Medicare. Medicaid CURRENT HOME/COMMUNITY SERVICES/EQUIPMENT:: She is followed by [facility]. Has raised toilet seat, tub seat, HH shower, wheelchair and walker for home use. PRIMARY CARE PHYSICIAN:: Nader Dobson MD POTENTIAL DISCHARGE NEEDS:: It is anticipated she will require transfer to [facility] to renal service. Will require ambulance transport. PATIENT/FAMILY EDUCATION NEEDS:: Review d/c plans with patient and family. Sister/guardian has already been contacted. Darlene wanted her sister to ride in ambulance with her, but sister states she would then not have car with her. Sister indicaes she will plan to meet Darlene at [facility] when she gets there. Sister will be notified when she is being transported. ANTICIPATED BARRIERS TO DISCHARGE:: none anticipated TRANSPORTATION:: ambulance transport. PLAN:: D/C to [facility] as per when bed available.
--- NOTE | 2018-08-05 15:28 | PDOC.CMDIS ---
LACE Index Scoring Tool - Questions: Length of Stay (in days): 2 Acuity (Admit via E.D.?): Yes Comorbidities: Liver or Renal Disease E.D. Visits: 1 - Answers: Total Score: 11 Risk of Readmission: High Risk Care Management Discharge Reason for Hospitalization: pyelonephritis of transplanted kidney. Discharge Plan: patient being transferred to [facility] to renal service, via ambulance. Patient/Family Education Needs: RN to review d/c with receiving hospital.
--- NOTE | 2018-08-05 15:31 | CMDISCH_ITS ---
LACE Index Scoring Tool - Questions: Length of Stay (in days): 2 Acuity (Admit via E.D.?): Yes Comorbidities: Liver or Renal Disease E.D. Visits: 1 - Answers: Total Score: 11 Risk of Readmission: High Risk Care Management Discharge Reason for Hospitalization: pyelonephritis of transplanted kidney. Discharge Plan: patient being transferred to [facility] to renal service, via ambulance. Patient/Family Education Needs: RN to review d/c with receiving hospital.
[2018-08-05] MEDS: Hydrocortisone SOD SUC. 100 MG VIAL 50 MG IVP (15:58)
[2018-08-05 16:19] VITALS: BP 133/63; PULSE 95; RESP 19; TEMP 36.1; O2SAT 95
--- NOTE | 2018-08-05 16:55 | NUR.NOTE ---
Nursing Note: patient is awaiting a bed at [facility]. She is a very anxious person, and the anxiety has driven all of her problems today such as the nausea, we have tried non pharm ideas like stuffed animals and reassurement and redirection to keep her calm, to this point we have had success, and she is resting comfortably at this time
--- NOTE | 2018-08-05 18:14 | NUR.NOTE ---
per Dr. Dumont, patient may be premedicated with ondansetron and be transported by [facility] crew. Nursing Note:
== END 2018-08-05 18:20 | disposition short-term general hospital (02) | DRG 699 ==
LOC: ER 23:03 → MS 23:29
PROVIDERS: Admitting Provider Family Medicine; Emergency Provider Student in an Organized Health Care Education/Training Program; PCP Internal Medicine; Visit Provider Internal Medicine
DX: T86.13 Kidney transplant infection (principal); N10 Acute pyelonephritis; D68.59 Other primary thrombophilia; E27.40 Unspecified adrenocortical insufficiency; E87.1 Hypo-osmolality and hyponatremia; Y83.0 Surgical operation with transplant of whole organ as the cause of abnormal reaction of the patient, or of later complication, without mention of misadventure at the time of the procedure; R33.9 Retention of urine, unspecified; N31.9 Neuromuscular dysfunction of bladder, unspecified; R11.2 Nausea with vomiting, unspecified; R79.1 Abnormal coagulation profile; T45.515A Adverse effect of anticoagulants, initial encounter; R19.7 Diarrhea, unspecified; I12.9 Hypertensive chronic kidney disease with stage 1 through stage 4 chronic kidney disease, or unspecified chronic kidney disease; N18.9 Chronic kidney disease, unspecified; G40.909 Epilepsy, unspecified, not intractable, without status epilepticus; Z94.0 Kidney transplant status; Z79.52 Long term (current) use of systemic steroids; Z79.899 Other long term (current) drug therapy; Z79.4 Long term (current) use of insulin; Z79.2 Long term (current) use of antibiotics
CPT/HCPCS: 36415; 51701; 76770; 80048; 80053; 85027; 93005; 96360; 96361; 99222; 99239; 99285; 80197; 81003; 81015; 82465; 83735; 84100; 84550; 85025; 85610; 87086; 87324; 93010; J0696; J1720; J1941; J3475; J3490; J7517

== ENCOUNTER 2018-09-16 13:20 | Outpatient (REF) | payer MEDICARE, MEDICAID, SELFPAY ==
[2018-09-16 22:35] LABS: Bilirubin Negative (Negative); Blood Negative (Negative); Clarity Clear; Glucose Negative (Negative); Ketones Negative (Negative); Leukocyte Esterase Small (Negative); Nitrite Negative (Negative); Specific Gravity 1.015 (1.005-1.025); Urobilinogen 0.2 EU/dL (Up TO 0.2); pH 7.5 (5-8)
[2018-09-16 22:36] LABS: C & S Indicated? C&S Done As Ordered
[2018-09-16 22:46] LABS: Bacteria Many HPF (Negative); Casts Negative LPF (Negative); Crystals Negative HPF (Negative); Epithelial Cells Negative HPF (Negative); Mucus Negative (Negative); Other Cells Negative (Negative); RBC Negative (0-2)
== END 2018-09-16 13:40 ==
LOC: NCHCN 13:20
PROVIDERS: PCP Internal Medicine; Visit Provider Internal Medicine
DX: R82.90 Unspecified abnormal findings in urine (principal); Z94.0 Kidney transplant status; Z87.440 Personal history of urinary (tract) infections; N39.0 Urinary tract infection, site not specified
CPT/HCPCS: 87077; 81003; 81015; 87086; 87186

== ENCOUNTER 2018-10-14 08:29 | Outpatient (CLI) | payer MEDICARE, MEDICAID, SELFPAY ==
[2018-10-14 09:24] LABS: HCT 36.9 % (36.0-46.0); HGB 12.3 g/dL (12.0-15.5); Mean Corp. HGB Concentration 33.3 g/dL (32.0-36.0); Mean Corpuscular Hemoglobin 28.1 pg (27.0-33.0); Mean Corpuscular Volume 84.2 fL (80-95); Mean Platelet Volume 9.1 fL (8.0-11.0); Platelet Count 219 x1000/uL (130-400); RBC 4.38 m/cumm (4.00-5.20); White Blood Cell Count 5.68 k/cumm (4.4-10.8)
[2018-10-14 09:29] LABS: Bilirubin Negative (Negative); Blood Trace-intact (Negative); Clarity Sl Cloudy; Glucose Negative (Negative); Ketones Negative (Negative); Leukocyte Esterase Large (Negative); Nitrite Positive (Negative); Specific Gravity 1.015 (1.005-1.025); Urobilinogen 0.2 EU/dL (Up TO 0.2)
[2018-10-14 09:43] LABS: Epithelial Cells Few HPF (Negative); Other Cells Negative (Negative); WBC 20-50 HPF (0-5)
[2018-10-14 09:44] LABS: Bacteria Many HPF (Negative); C & S Indicated? Yes; Casts Negative LPF (Negative); Crystals Negative HPF (Negative); Mucus Negative (Negative)
[2018-10-14 09:49] LABS: PROTEIN 24.6 mg/dL
[2018-10-14 09:50] LABS: COMMENT (LAB VIEW ONLY) 51.55 mg/dL; Prot/Crea Ur Ratio 0.47
[2018-10-14 11:25] LABS: Cholesterol 176 mg/dL (50-200)
[2018-10-14 11:31] LABS: ALT 21 U/L (12-78); AST 18 U/L (15-37); Albumin 3.3 g/dL (3.4-5.0); Alkaline Phosphatase 56 U/L (46-116); Anion Gap 9.8 mmol/L (3-11); BUN 14 mg/dL (7-18); Bilirubin, Total 1.2 mg/dL (0.2-1.0); CO2 26.2 mmol/L (21.0-32.0); CREATININE 0.58 mg/dL (0.55-1.02); Calcium 8.6 mg/dL (8.5-10.1); Chloride 99 mmol/L (98-107); Glucose 77 mg/dL (70-100); Magnesium 1.6 mg/dL (1.8-2.4); PHOSPHORUS 4.5 mg/dL (2.6-4.7); Potassium 4.2 mmol/L (3.5-5.1); Sodium 135 mmol/L (136-145); Total Protein 6.6 g/dL (6.4-8.2); Uric Acid 2.2 mg/dL (2.6-6.0)
[2018-10-15 12:17] LABS: Tacrolimus 2.8 ng/ml
== END 2018-10-14 08:49 ==
PROVIDERS: PCP Internal Medicine; Visit Provider Internal Medicine Nephrology
DX: Z29.8 Encounter for other specified prophylactic measures (principal); Z79.899 Other long term (current) drug therapy; Z94.0 Kidney transplant status
CPT/HCPCS: 36415; 80053; 80197; 85027; 87077; 81003; 81015; 82465; 82565; 83735; 84100; 84156; 84550; 87086; 87186

== ENCOUNTER 2018-10-19 13:31 | Inpatient (IN) | payer MEDICARE, MEDICAID, SELFPAY ==
[2018-10-19 13:47] VITALS: BP 112/52; PULSE 88; RESP 18; TEMP 38.2; O2SAT 96
[2018-10-19 14:59] LABS: Abs Immature Grans 0.02 k/cumm (0.0-0.09); Absolute Basophil Count 0.02 k/cumm (0.0-0.2); Absolute Eosinophil Count 0.08 k/cumm (0.0-0.7); Absolute Lymphocyte Count 0.51 k/cumm (1.2-3.4); Absolute Neutrophil Count 3.65 k/cumm (1.2-6.7); Basophils % 0.4; Eosinophils % 1.7; HCT 34.4 % (36.0-46.0); HGB 11.5 g/dL (12.0-15.5); Immature Grans % 0.4; Lymphocytes % 10.9; Mean Corp. HGB Concentration 33.4 g/dL (32.0-36.0); Mean Corpuscular Hemoglobin 27.6 pg (27.0-33.0); Mean Corpuscular Volume 82.7 fL (80-95); Mean Platelet Volume 8.9 fL (8.0-11.0); Monocytes % 8.5; Neutrophils % 78.1; Platelet Count 222 x1000/uL (130-400); RBC 4.16 m/cumm (4.00-5.20); RBC Distribution Width 13.7 % (11.7-14.6); White Blood Cell Count 4.68 k/cumm (4.4-10.8)
[2018-10-19 15:13] LABS: ALT 26 U/L (12-78); AST 30 U/L (15-37); Albumin 2.8 g/dL (3.4-5.0); Alkaline Phosphatase 58 U/L (46-116); Anion Gap 10.8 mmol/L (3-11); BUN 18 mg/dL (7-18); Bilirubin, Total 0.8 mg/dL (0.2-1.0); CO2 24.2 mmol/L (21.0-32.0); CREATININE 0.68 mg/dL (0.55-1.02); Calcium 8.1 mg/dL (8.5-10.1); Chloride 97 mmol/L (98-107); Glucose 136 mg/dL (70-100); Sodium 132 mmol/L (136-145); Total Protein 6.8 g/dL (6.4-8.2)
--- NOTE | 2018-10-19 15:14 | W.ED.GENAD ---
Discharge Plan Disposition Patient Disposition: [facility] INPATIENT Discharge Details Chief Complaint: Fever Clinical Impression: UTI (urinary tract infection), Pulmonary edema, CHF (congestive heart failure), Tinea cruris, Hypomagnesemia Primary Care Provider: Nader Dobson ED Provider: Can Slaughter Home Meds and New Rx's Prescriptions: No Action acetaminophen [Tylenol] 325 MG tablet 650 mg PO PRN RF: 0 alendronate 70 MG tablet 70 mg PO DIRECTED RF: 0 levetiracetam [Keppra] 750 MG tablet 1,500 mg PO BID RF: 0 docusate sodium 100 mg Capsule 100 mg PO DAILY PRNRF: 0 polyethylene glycol 3350 [Miralax] 17 gram/dose Powder 17 g PO DAILY PRNRF: 0 Nii Protect Cream 1 applic topical . DIRECTED PRNRF: 0 cetirizine 10 mg Tablet 10 mg PO DAILY PRNRF: 0 mycophenolate mofetil 250 mg Capsule 250 mg PO BID RF: 0 prednisone 5 mg Tablet 5 mg PO Q OTHER DAY RF: 0 hydrocortisone 1 % Cream 1 applic TOPICAL BID-QID PRNRF: 0 esomeprazole magnesium [Nexium] 40 mg Capsule,Delayed Release(Dr/Ec) 40 mg PO DAILY RF: 0 guaifenesin [Tussin] 100 mg/5 mL Liquid 200 mg PO Q4H PRNRF: 0 citalopram 20 mg Tablet 20 mg PO DAILY RF: 0 warfarin 5 mg Tablet 5 mg PO DAILY RF: 0 tacrolimus [Prograf] 1 mg Capsule 2 mg PO Q12H RF: 0 Medical Decision Making 15:20 --53-year-old female with multiple medical problems including status post renal transplant x3 on immunosuppressives, neurogenic bladder who straight catheterizes x78 years, frequent urinary tract infections, 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 Tinea cruris left axilla and left groin. Consider pneumonia versus UTI versus other. Urinalysis reviewed: Positive leukocyte esterase and positive nitrite. Microanalysis pending. --Chest x-ray interpreted by radiology: IMPRESSION: Findings which could be due to congestive heart failure with asymmetric pulmonary edema versus bilateral bronchitis and asymmetric bilateral pneumonia. --I obtained and reviewed past hospital record: Urine culture from 10/14/2018 growing 2 colonies of E. coli that are both sensitive to the cephalosporins. Plan to initiate treatment with ceftriaxone 1 g IV. Patient is due for her Coumadin. I will prescribe Coumadin 5 mg. 17:30 -- Labs reviewed: UA concerning for UTI, BNP elevated and Cr nl. Given chest x-ray findings and elevated BNP and dyspnea on exertion, I am concerned about potential congestive heart failure. HYpomag noted. Will give mag ox 800mg. 18:00 --I spoke with Dr. Mott, transplant specialist at [facility], I discussed ED presentation and course including diagnostic treatment results, he recommends giving Lasix 20 mg IV and treating with antibiotic for UTI. He notes that typically for transplant related pyelonephritis he would give Zosyn but states that cephalosporin is also appropriate. He recommended admission here to [facility]. I will speak with hospitalist regarding admission. --ECG was reviewed and interpreted by me: Normal sinus rhythm 77 bpm, normal axis, nondiagnostic. I spoke with Dr. Dumont, I discussed ED presentation and course including diagnostics. Dr. Dumont will admit the patient. Care transitioned to Dr. Dumont at time of admission HPI General Mode of arrival: wheelchair. Date/Time Provider Initiated Documentation: 10/19/18 14:02. Limitations to Documentation: no limitations. Information obtained by: patient and family. HPI Narrative: 53-year-old female with multiple medical problems including status post renal trans- - 3rd kidney transplant, on immunosuppressive therapy, neurogenic bladder, Protein S deficiency on antiocoagulation with coumadin, h/o TBI, and seizure disorder, here with chief complaint of fever. Patient has had fever for the past 4 days. Fever has persisted. No modifiers. No associated cough. Patient has been having to perform straight catheterization for neurogenic bladder for 7 to 8 years. Patient and family concerned that she has grown VRE in urine and that a urinary tract infection may be causing her symptoms. Patient does note rash in her left groin and left axilla consistent with yeast infection. Related Data Home Medications Medication Instructions Recorded Confirmed acetaminophen [Tylenol] 650 mg PO PRN 08/15/13 10/19/18 alendronate 70 mg PO DIRECTED 08/15/13 10/19/18 levetiracetam [Keppra] 1,500 mg PO BID 08/15/13 10/19/18 Nii Protect 1 applic TOPICAL . DIRECTED PRN 08/04/18 10/19/18 docusate sodium 100 mg PO DAILY PRN 08/04/18 10/19/18 polyethylene glycol 3350 [Miralax] 17 g PO DAILY PRN 08/04/18 10/19/18 cetirizine 10 mg PO DAILY PRN 10/19/18 10/19/18 citalopram 20 mg PO DAILY 10/19/18 10/19/18 esomeprazole magnesium [Nexium] 40 mg PO DAILY 10/19/18 10/19/18 guaifenesin [Tussin] 200 mg PO Q4H PRN 10/19/18 10/19/18 hydrocortisone 1 applic TOPICAL BID-QID PRN 10/19/18 10/19/18 mycophenolate mofetil 250 mg PO BID 10/19/18 10/19/18 prednisone 5 mg PO Q OTHER DAY 10/19/18 10/19/18 tacrolimus [Prograf] 2 mg PO Q12H 10/19/18 10/19/18 warfarin 5 mg PO DAILY 10/19/18 10/19/18 Allergies Allergy/AdvReac Type Severity Reaction Status Date / Time codeine Allergy Unverified 10/19/18 13:53 divalproex sodium Allergy Unverified 10/19/18 13:53 [From Depakote] povidone-iodine AdvReac Skin Rash Unverified 10/19/18 13:53 [From Betadine] soap [From Betadine] AdvReac Skin Rash Unverified 10/19/18 13:53 General Stated Complaint: Fever AD: 3 Review of Systems Review of Systems All systems reviewed & are unremarkable except as noted in HPI and below Constitutional Reports fever(s) Cardiovascular Denies dyspnea Respiratory Denies cough and Denies dyspnea Integumentary/Breasts Reports rash PFSH Medical History Chronic anticoagulation Chronic kidney disease Convulsions Hyperparathyroidism Neurogenic bladder Osteoporosis Peripheral neuropathy Protein S deficiency TBI (traumatic brain injury) Surgical History Colonoscopy - MAC (02/11/15) Fistula creation Renal Transplant Social History Smoking/Tobacco Use Status: Never Alcohol Intake: never Drug use: Never Substance use type: does not use Do you feel safe at home: Yes Do you feel safe in your relationship?: Yes Additional Social history: Lives in prison in [place]. Has VNA care there as well. Exam Const General: cooperative and anxious Orientation: alert and awake HENMT Head: normocephalic Mouth: moist mucous membranes Eyes Conjunctivae: normal conjunctivae Sclera: normal sclerae Neck Neck: trachea midline and supple Resp Auscultation: clear to auscultation bilaterally, no rales, no rhonchi and no wheezes Cardio Jugular venous pressure: no JVD Rate: regular rate and not tachycardic Rhythm: regular rhythm GI Palpation: soft, not firm, no guarding, no masses, not rigid and nontender Skin Rashes: rashes noted (lt axilla & lt groin with well demarcated erythema) Neuro General: alert, awake, oriented x3 and tone normal Extrem General: no edema Psych Appearance: grossly normal Course Vital Signs Temperature 38.2 C H 10/19/18 13:47 Pulse 88 10/19/18 13:47 Respiratory Rate 18 10/19/18 13:47 Blood Pressure 112/52 L 10/19/18 13:47 Pulse Oximetry 96 10/19/18 13:47 Temperature 38.2 C H 10/19/18 13:47 Temperature Source Temporal Artery Scan 10/19/18 13:47 Pulse 88 10/19/18 13:47 Respiratory Rate 18 10/19/18 13:47 Respiratory Effort Non-Labored 10/19/18 13:51 Blood Pressure 112/52 L 10/19/18 13:47 Blood Pressure Position Sitting 10/19/18 13:47 Pulse Oximetry 96 10/19/18 13:47 Oxygen Delivery Method Room Air 10/19/18 13:47 Oxygen Flow Rate 0 10/19/18 13:47 Pain Level 0 10/19/18 13:47 Lab/Test Results Lab/Test Results: Laboratory Tests Range/Units 10/19/18 14:50 WBC (4.4-10.8) k/cumm 4.68 RBC (4.00-5.20) m/cumm 4.16 Hgb (12.0-15.5) g/dL 11.5 L Hct (36.0-46.0) % 34.4 L MCV (80-95) fL 82.7 MCH (27.0-33.0) pg 27.6 MCHC (32.0-36.0) g/dL 33.4 RDW (11.7-14.6) % 13.7 Plt Count (130-400) x1000/uL 222 MPV (8.0-11.0) fL 8.9 Immature Gran % 0.4 Neutrophils % 78.1 Lymphocytes % 10.9 Monocytes % 8.5 Eosinophils % 1.7 Basophils % 0.4 Absolute Neutrophils (1.2-6.7) k/cumm 3.65 Absolute Lymphocytes (1.2-3.4) k/cumm 0.51 L Absolute Monocytes (0.11-0.7) k/cumm 0.40 Absolute Eosinophils (0.0-0.7) k/cumm 0.08 Absolute Basophils (0.0-0.2) k/cumm 0.02
[2018-10-19 15:19] LABS: Bilirubin Negative (Negative); Blood Negative (Negative); Clarity Clear; Glucose Negative (Negative); Ketones Negative (Negative); Leukocyte Esterase Small (Negative); Nitrite Positive (Negative); Specific Gravity 1.015 (1.005-1.025); Urobilinogen 0.2 EU/dL (Up TO 0.2); pH 8.5 (5-8)
--- NOTE | 2018-10-19 15:23 | ED.GENADUL_ITS ---
Discharge Plan Disposition Patient Disposition: [facility] INPATIENT Discharge Details Chief Complaint: Fever Clinical Impression: UTI (urinary tract infection), Pulmonary edema, CHF (congestive heart failure), Tinea cruris, Hypomagnesemia Primary Care Provider: Nader Dobson ED Provider: Can Slaughter Home Meds and New Rx's Prescriptions: No Action acetaminophen [Tylenol] 325 MG tablet 650 mg PO PRN RF: 0 alendronate 70 MG tablet 70 mg PO DIRECTED RF: 0 levetiracetam [Keppra] 750 MG tablet 1,500 mg PO BID RF: 0 docusate sodium 100 mg Capsule 100 mg PO DAILY PRNRF: 0 polyethylene glycol 3350 [Miralax] 17 gram/dose Powder 17 g PO DAILY PRNRF: 0 Nii Protect Cream 1 applic topical . DIRECTED PRNRF: 0 cetirizine 10 mg Tablet 10 mg PO DAILY PRNRF: 0 mycophenolate mofetil 250 mg Capsule 250 mg PO BID RF: 0 prednisone 5 mg Tablet 5 mg PO Q OTHER DAY RF: 0 hydrocortisone 1 % Cream 1 applic TOPICAL BID-QID PRNRF: 0 esomeprazole magnesium [Nexium] 40 mg Capsule,Delayed Release(Dr/Ec) 40 mg PO DAILY RF: 0 guaifenesin [Tussin] 100 mg/5 mL Liquid 200 mg PO Q4H PRNRF: 0 citalopram 20 mg Tablet 20 mg PO DAILY RF: 0 warfarin 5 mg Tablet 5 mg PO DAILY RF: 0 tacrolimus [Prograf] 1 mg Capsule 2 mg PO Q12H RF: 0 Medical Decision Making 15:20 --53-year-old female with multiple medical problems including status post renal transplant x3 on immunosuppressives, neurogenic bladder who straight catheterizes x78 years, frequent urinary tract infections, 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 Tinea cruris left axilla and left groin. Consider pneumonia versus UTI versus other. Urinalysis reviewed: Positive leukocyte esterase and positive nitrite. Microanalysis pending. --Chest x-ray interpreted by radiology: IMPRESSION: Findings which could be due to congestive heart failure with asymmetric pulmonary edema versus bilateral bronchitis and asymmetric bilateral pneumonia. --I obtained and reviewed past hospital record: Urine culture from 10/14/2018 growing 2 colonies of E. coli that are both sensitive to the cephalosporins. Plan to initiate treatment with ceftriaxone 1 g IV. Patient is due for her Coumadin. I will prescribe Coumadin 5 mg. 17:30 -- Labs reviewed: UA concerning for UTI, BNP elevated and Cr nl. Given chest x-ray findings and elevated BNP and dyspnea on exertion, I am concerned about potential congestive heart failure. HYpomag noted. Will give mag ox 800mg. 18:00 --I spoke with Dr. Mott, transplant specialist at [facility], I discussed ED presentation and course including diagnostic treatment results, he recommends giving Lasix 20 mg IV and treating with antibiotic for UTI. He notes that typically for transplant related pyelonephritis he would give Zosyn but states that cephalosporin is also appropriate. He recommended admission here to [facility]. I will speak with hospitalist regarding admission. --ECG was reviewed and interpreted by me: Normal sinus rhythm 77 bpm, normal axis, nondiagnostic. I spoke with Dr. Dumont, I discussed ED presentation and course including diagnostics. Dr. Dumont will admit the patient. Care transitioned to Dr. Dumont at time of admission HPI General Mode of arrival: wheelchair . Date/Time Provider Initiated Documentation: 10/19/18 14:02 . Limitations to Documentation: no limitations . Information obtained by: patient and family . HPI Narrative: 53-year-old female with multiple medical problems including status post renal trans- - 3rd kidney transplant, on immunosuppressive therapy, neurogenic bladder, Protein S deficiency on antiocoagulation with coumadin, h/o TBI, and seizure disorder, here with chief complaint of fever. Patient has had fever for the past 4 days. Fever has persisted. No modifiers. No associated cough. Patient has been having to perform straight catheterization for neurogenic bladder for 7 to 8 years. Patient and family concerned that she has grown VRE in urine and that a urinary tract infection may be causing her symptoms. Patient does note rash in her left groin and left axilla consistent with yeast infection. Related Data Home Medications Medication Instructions Recorded Confirmed acetaminophen [Tylenol] 650 mg PO PRN 08/15/13 10/19/18 alendronate 70 mg PO DIRECTED 08/15/13 10/19/18 levetiracetam [Keppra] 1,500 mg PO BID 08/15/13 10/19/18 Nii Protect 1 applic TOPICAL . DIRECTED PRN 08/04/18 10/19/18 docusate sodium 100 mg PO DAILY PRN 08/04/18 10/19/18 polyethylene glycol 3350 [Miralax] 17 g PO DAILY PRN 08/04/18 10/19/18 cetirizine 10 mg PO DAILY PRN 10/19/18 10/19/18 citalopram 20 mg PO DAILY 10/19/18 10/19/18 esomeprazole magnesium [Nexium] 40 mg PO DAILY 10/19/18 10/19/18 guaifenesin [Tussin] 200 mg PO Q4H PRN 10/19/18 10/19/18 hydrocortisone 1 applic TOPICAL BID-QID PRN 10/19/18 10/19/18 mycophenolate mofetil 250 mg PO BID 10/19/18 10/19/18 prednisone 5 mg PO Q OTHER DAY 10/19/18 10/19/18 tacrolimus [Prograf] 2 mg PO Q12H 10/19/18 10/19/18 warfarin 5 mg PO DAILY 10/19/18 10/19/18 Allergies Allergy/AdvReac Type Severity Reaction Status Date / Time codeine Allergy Unverified 10/19/18 13:53 divalproex sodium Allergy Unverified 10/19/18 13:53 [From Depakote] povidone-iodine AdvReac Skin Rash Unverified 10/19/18 13:53 [From Betadine] soap [From Betadine] AdvReac Skin Rash Unverified 10/19/18 13:53 General Stated Complaint: Fever AD: 3 Review of Systems Review of Systems All systems reviewed & are unremarkable except as noted in HPI and below Constitutional Reports fever(s) Cardiovascular Denies dyspnea Respiratory Denies cough and Denies dyspnea Integumentary/Breasts Reports rash PFSH Medical History Chronic anticoagulation Chronic kidney disease Convulsions Hyperparathyroidism Neurogenic bladder Osteoporosis Peripheral neuropathy Protein S deficiency TBI (traumatic brain injury) Surgical History Colonoscopy - MAC (02/11/15) Fistula creation Renal Transplant Social History Smoking/Tobacco Use Status: Never Alcohol Intake: never Drug use: Never Substance use type: does not use Do you feel safe at home: Yes Do you feel safe in your relationship?: Yes Additional Social history: Lives in care home in [place]. Has VNA care there as well. Exam Const General: cooperative and anxious Orientation: alert and awake HENMT Head: normocephalic Mouth: moist mucous membranes Eyes Conjunctivae: normal conjunctivae Sclera: normal sclerae Neck Neck: trachea midline and supple Resp Auscultation: clear to auscultation bilaterally, no rales, no rhonchi and no wheezes Cardio Jugular venous pressure: no JVD Rate: regular rate and not tachycardic Rhythm: regular rhythm GI Palpation: soft, not firm, no guarding, no masses, not rigid and nontender Skin Rashes: rashes noted (lt axilla & lt groin with well demarcated erythema) Neuro General: alert, awake, oriented x3 and tone normal Extrem General: no edema Psych Appearance: grossly normal Course Vital Signs Temperature 38.2 C H 10/19/18 13:47 Pulse 88 10/19/18 13:47 Respiratory Rate 18 10/19/18 13:47 Blood Pressure 112/52 L 10/19/18 13:47 Pulse Oximetry 96 10/19/18 13:47 Temperature 38.2 C H 10/19/18 13:47 Temperature Source Temporal Artery Scan 10/19/18 13:47 Pulse 88 10/19/18 13:47 Respiratory Rate 18 10/19/18 13:47 Respiratory Effort Non-Labored 10/19/18 13:51 Blood Pressure 112/52 L 10/19/18 13:47 Blood Pressure Position Sitting 10/19/18 13:47 Pulse Oximetry 96 10/19/18 13:47 Oxygen Delivery Method Room Air 10/19/18 13:47 Oxygen Flow Rate 0 10/19/18 13:47 Pain Level 0 10/19/18 13:47 Lab/Test Results Lab/Test Results: Laboratory Tests Range/Units 10/19/18 14:50 WBC (4.4-10.8) k/cumm 4.68 RBC (4.00-5.20) m/cumm 4.16 Hgb (12.0-15.5) g/dL 11.5 L Hct (36.0-46.0) % 34.4 L MCV (80-95) fL 82.7 MCH (27.0-33.0) pg 27.6 MCHC (32.0-36.0) g/dL 33.4 RDW (11.7-14.6) % 13.7 Plt Count (130-400) x1000/uL 222 MPV (8.0-11.0) fL 8.9 Immature Gran % 0.4 Neutrophils % 78.1 Lymphocytes % 10.9 Monocytes % 8.5 Eosinophils % 1.7 Basophils % 0.4 Absolute Neutrophils (1.2-6.7) k/cumm 3.65 Absolute Lymphocytes (1.2-3.4) k/cumm 0.51 L Absolute Monocytes (0.11-0.7) k/cumm 0.40 Absolute Eosinophils (0.0-0.7) k/cumm 0.08 Absolute Basophils (0.0-0.2) k/cumm 0.02
[2018-10-19 15:27] LABS: Bacteria Many HPF (Negative); C & S Indicated? Yes; Casts Negative LPF (Negative); Crystals Negative HPF (Negative); Epithelial Cells Negative HPF (Negative); Mucus Negative (Negative); Other Cells Rare Transitional (Negative); RBC 0-2 (0-2); WBC 20-50 HPF (0-5)
--- NOTE | 2018-10-19 15:36 | DI.RAD_ITS ---
SYMPTOM/DIAGNOSIS: FEVER AP AND LATERAL CHEST: Comparison is made with 22 Jan 2017. Sternal wires and cardiomegaly are again noted. There is mitral valve calcification. There is vascular prominence and increased interstitial markings which could indicate CHF. There are underlying chronic fibrotic changes as seen on the previous exam. There are no pleural effusions or definite focal consolidation. There is a left axillary stent. IMPRESSION: Cardiomegaly and question of pulmonary edema vs bilateral pneumonitis.
--- NOTE | 2018-10-19 15:44 | DI.VRAD_ITS ---
EXAM: XR Chest, 2 Views EXAM DATE/TIME: 10/19/2018 3:14 PM CLINICAL HISTORY: 53 years old, female; Fever; Additional info: Patient unable to follow breathing instructions. TECHNIQUE: Imaging protocol: XR of the chest, 2 views. COMPARISON: CR CHEST 2 VIEWS PA,LAT 01/22/2017 10:00 AM FINDINGS: Lungs: There is bilateral central bronchial wall thickening and haziness. There is left perihilar and right basilar airspace disease. Pleural space: No right pleural effusion. There is a small left pleural effusion. No pneumothorax. Heart/Mediastinum: The heart is enlarged. The mediastinal contours are normal. Vasculature: There is a left axillary stent, probably in the vein. Bones/joints: Prior sternotomy. IMPRESSION: Findings which could be due to congestive heart failure with asymmetric pulmonary edema versus bilateral bronchitis and asymmetric bilateral pneumonia. Dictated and Authenticated by: Jorge Mckenna MD. Ordering:PAULIE North MD
[2018-10-19] MEDS: cefTRIAXone 1 GM/50 ML BAG IVPB (16:46)
[2018-10-19] MEDS: Warfarin 5 MG TAB PO (16:46)
[2018-10-19 17:15] LABS: NT-proBNP 1325 pg/mL
[2018-10-19 17:20] LABS: Troponin I < 0.05 ng/mL (0.00-0.06)
[2018-10-19 17:51] LABS: INR 2.4 (0.9-1.1); Prothrombin Time 23.9 sec (9.3-11.0)
[2018-10-19] MEDS: Furosemide 20 MG/2 ML VIAL IVP (18:10)
[2018-10-19] MEDS: Magnesium Oxide 400 MG TAB 800 MG PO (18:15)
[2018-10-19] MEDS: Hydrocortisone SOD SUC. 100 MG VIAL IVP (18:25)
[2018-10-19 18:26] LABS: Magnesium 1.6 mg/dL (1.8-2.4)
[2018-10-19 19:19] VITALS: BP 106/43; PULSE 79; RESP 15; TEMP 37.3; O2SAT 95
[2018-10-19 19:36] VITALS: BP 132/55; PULSE 76; RESP 16; TEMP 37.5; O2SAT 97
--- NOTE | 2018-10-19 20:37 | W.PM.HP.N ---
Date of service: 10/19/18 Time of Service: 20:37 Assessment and Plan (1) UTI (urinary tract infection): Current visit: Yes Status: Acute Cx from 10/14/18 with E. Coli, sensitive to cephalosporins. We will continue ceftriaxone initiated in the ED. Blood cultures are collected and pending. Repeat urine C&S from today is pending. (2) Abdominal pain: Current visit: Yes Status: Acute Obtain KUB and insert kidd. If abdominal pain persists post kidd placement and KUB with findings suggestive of SBO, would place NPO, consult surgery and seek transfer to a tertiary care facility (we do not have immunosuppresive therapy in IV form at [facility], nor do we have a real-time way of monitoring these). Provide stress dose steroids given the fact that the patient is on prednisone for immunosuppression. (3) New onset of congestive heart failure: Current visit: Yes Status: Acute I have researched [facility] records as well as our own and do not see CHF listed as diagnosis; nor can I find a prior echo. Will monitor the patient on tele; obtain serial troponins; obtain echo; obtain TSH. Diurese, monitor I/O's and daily weights. (4) Neurogenic bladder: Current visit: No Status: Acute Place kidd catheter while hospitalized for a UTI (5) S/P kidney transplant: Current visit: No Status: Acute Continue mycophenolate and prograf; check prograf level. Cover with stress dose steroids as she is also on prednisone. If the patient is found to have SBO/cannot tolerate PO, we would seek transfer to a tertiary care facility as the patient would require IV immunosuppressants which our hospital does not have. (6) Hypercoagulable state, primary: Current visit: No Status: Acute Continue coumadin; daily INR checks (7) Seizure disorder: Current visit: No Status: Chronic Continue keppra (8) DVT prophylaxis: Current visit: No Status: Acute On therapeutic coumadin (9) Discharge planning issues: Current visit: No Status: Acute Full code History of Present Illness Chief Complaint: fevers, weakness at home Narrative: Ms Farah is a 53 year old female with PMHx of kidney transplant (this is her 3rd) on tripple immunosuppressive therapy, neurogenic bladder (intermittent catheterization at home), prior episode of small bowel obstruction, hypercoagulable state on coumadin, hypertension, seizure disorder, VRE colonization, who has been having fevers for the last 5 days. In addition, she has been getting progressively weaker and her mobility has decreased. She has been taking tylenol at home for fevers. When asked about urinary symptoms, he patient simply says I can't pee. She cannot give me any more details than that. Patient's guardian states that it's also been noticed that she has been more dyspneic on exertion than her normal. The patient admits to eating lots of salty foods at home. She denies a cough and chest pain. She also states she had a large BM today; however, since then her abdomen has felt hard and she hasn't been able to pass flatus. She does report some abdominal pain - at the same time, she is hungry and thirsty and is asking for a sandwich. In the ED, she was found to have a UTI. She had a urine culture done on 10/14/18 (ordered by her transplant team - Dr Mina). This grew 2 strains of E. Coli, both susceptible to cephalosporins; VRE did not grow in these urine culture. Her chest imaging revealed what appears to be CHF, which is new to Darlene. Dr Mina was contacted, recommended admission for IV antibiotics and IV lasix. We were asked to admit the patient for further care. Review of Systems Review of Systems 12 systems reviewed. Pertinent positives and negatives as per [facility] Medical History Chronic anticoagulation Chronic kidney disease Convulsions Hyperparathyroidism Neurogenic bladder Osteoporosis Peripheral neuropathy Protein S deficiency TBI (traumatic brain injury) Surgical History Colonoscopy - MAC (02/11/15) Fistula creation Renal Transplant Social History Smoking/Tobacco Use Status: Never Alcohol Intake: never Drug use: Never Substance use type: does not use Do you feel safe at home: Yes Do you feel safe in your relationship?: Yes Additional Social history: Lives in senior care in [place]. Has VNA care there as well. Meds Home Medications Medication Instructions Recorded Confirmed Type acetaminophen [Tylenol] 650 mg PO PRN 08/15/13 10/19/18 History alendronate 70 mg PO DIRECTED 08/15/13 10/19/18 History levetiracetam [Keppra] 1,500 mg PO BID 08/15/13 10/19/18 History Nii Protect 1 applic TOPICAL . DIRECTED PRN 08/04/18 10/19/18 History docusate sodium 100 mg PO DAILY PRN 08/04/18 10/19/18 History polyethylene glycol 3350 [Miralax] 17 g PO DAILY PRN 08/04/18 10/19/18 History cetirizine 10 mg PO DAILY PRN 10/19/18 10/19/18 History citalopram 20 mg PO DAILY 10/19/18 10/19/18 History esomeprazole magnesium [Nexium] 40 mg PO DAILY 10/19/18 10/19/18 History guaifenesin [Tussin] 200 mg PO Q4H PRN 10/19/18 10/19/18 History hydrocortisone 1 applic TOPICAL BID-QID PRN 10/19/18 10/19/18 History mycophenolate mofetil 250 mg PO BID 10/19/18 10/19/18 History prednisone 5 mg PO Q OTHER DAY 10/19/18 10/19/18 History tacrolimus [Prograf] 2 mg PO Q12H 10/19/18 10/19/18 History warfarin 5 mg PO DAILY 10/19/18 10/19/18 History Allergies Allergy/AdvReac Type Severity Reaction Status Date / Time codeine Allergy Unverified 10/19/18 13:53 divalproex sodium Allergy Unverified 10/19/18 13:53 [From Depakote] povidone-iodine AdvReac Skin Rash Unverified 10/19/18 13:53 [From Betadine] soap [From Betadine] AdvReac Skin Rash Unverified 10/19/18 13:53 Exam Narrative Exam Narrative: General: Very pleasant middle-aged female, mildly anxious, heavily relies on her guardian to tell her story, A&Ox3, NAD, not short of breath visibly when talking to me Neurological: A&Ox3, no obvious focal deficits Psychiatric: anxious, but appropriate speech pattern/content Skin: intact HEENT: Atraumatic, normocephalic, EOMI, dry MM, clear oropharynx, no submandibular or cervical lymphadenopathy, no goiter or JVD Cardiovascular: RRR, mildly tachycadic, no m/r/g Lungs: rales at B bases Gastrointestinal: abdomen is firm in RUQ; it is not tender on palpation, nondistended Extremities: LUE AV fistula with palpable thrill and a bruit; 1+ BLE edema, symmetric, no clubbing/cyanosis, 1+ pedal pulses B Results Imaging Additional studies: EKG: HR 77, NSR, no acute ischemia CXR: Findings which could be due to congestive heart failure with asymmetric pulmonary edema versus bilateral bronchitis and asymmetric bilateral pneumonia. Labs : 10/19/18 14:50 10/19/18 14:50 Laboratory Results - last 24 hr 10/19/18 10/19/18 10/19/18 14:50 14:50 14:52 WBC 4.68 RBC 4.16 Hgb 11.5 L Hct 34.4 L MCV 82.7 MCH 27.6 MCHC 33.4 RDW 13.7 Plt Count 222 MPV 8.9 Immature Gran % 0.4 Neutrophils % 78.1 Lymphocytes % 10.9 Monocytes % 8.5 Eosinophils % 1.7 Basophils % 0.4 Absolute Neutrophils 3.65 Absolute Lymphocytes 0.51 L Absolute Monocytes 0.40 Absolute Eosinophils 0.08 Absolute Basophils 0.02 PT INR Sodium 132 L Potassium 4.0 Chloride 97 L Carbon Dioxide 24.2 Anion Gap 10.8 BUN 18 Creatinine 0.68 Estimated GFR/1.73 m2 >= 60.00 Glucose 136 H Calcium 8.1 L Magnesium Total Bilirubin 0.8 AST 30 ALT 26 Alkaline Phosphatase 58 Troponin I < 0.05 NT-Pro-B Natriuret Pep 1325 H Total Protein 6.8 Albumin 2.8 L Urine Color Urine Clarity Urine pH Ur Specific [place] Urine Protein Urine Ketones Urine Blood Urine Nitrite Urine Bilirubin Urine Urobilinogen Ur Leukocyte Esterase Urine RBC Urine WBC Ur Epithelial Cells Urine Crystals Urine Bacteria Urine Casts Urine Mucus Urine Other Ur Culture Indicated? Urine Glucose 10/19/18 10/19/18 10/19/18 14:52 14:52 15:11 WBC RBC Hgb Hct MCV MCH MCHC RDW Plt Count MPV Immature Gran % Neutrophils % Lymphocytes % Monocytes % Eosinophils % Basophils % Absolute Neutrophils Absolute Lymphocytes Absolute Monocytes Absolute Eosinophils Absolute Basophils PT 23.9 H INR 2.4 H Sodium Potassium Chloride Carbon Dioxide Anion Gap BUN Creatinine Estimated GFR/1.73 m2 Glucose Calcium Magnesium 1.6 L Total Bilirubin AST ALT Alkaline Phosphatase Troponin I NT-Pro-B Natriuret Pep Total Protein Albumin Urine Color Yellow Urine Clarity Clear Urine pH 8.5 H Ur Specific [place] 1.015 Urine Protein Trace H Urine Ketones Negative Urine Blood Negative Urine Nitrite Positive H Urine Bilirubin Negative Urine Urobilinogen 0.2 Ur Leukocyte Esterase Small H Urine RBC 0-2 Urine WBC 20-50 Ur Epithelial Cells Negative Urine Crystals Negative Urine Bacteria Many Urine Casts Negative Urine Mucus Negative Urine Other Rare transitional Ur Culture Indicated? Yes Urine Glucose Negative Last Vital Signs Temp 37.5 C 10/19/18 19:36 Pulse 76 10/19/18 19:36 Resp 16 10/19/18 19:36 BP 132/55 L 10/19/18 19:36 Pulse Ox 97 10/19/18 19:36
[2018-10-19 20:40] VITALS: PULSE 78
--- NOTE | 2018-10-19 21:02 | HPE_ITS ---
Date of service: 10/19/18 Time of Service: 20:37 Assessment and Plan (1) UTI (urinary tract infection): Current visit: Yes Status: Acute Cx from 10/14/18 with E. Coli, sensitive to cephalosporins. We will [place] nue ceftriaxone initiated in the ED. Blood cultures are collected and pending. Repeat urine C&S from today is pending. (2) Abdominal pain: Current visit: Yes Status: Acute Obtain KUB and insert kidd. If abdominal pain persists post kidd placement and KUB with findings suggestive of SBO, would place NPO, consult surgery and seek transfer to a tertiary care facility (we do not have immunosuppresive therapy in IV form at [facility], nor do we have a real-time way of monitoring these). Provide stress dose steroids given the fact that the patient is on prednisone for immunosuppression. (3) New onset of congestive heart failure: Current visit: Yes Status: Acute I have researched [facility] records as well as our own and do not see CHF listed as diagnosis; nor can I find a prior echo. Will monitor the patient on tele; obtain serial troponins; obtain echo; obtain TSH. Diurese, monitor I/O's and daily weights. (4) Neurogenic bladder: Current visit: No Status: Acute Place kidd catheter while hospitalized for a UTI (5) S/P kidney transplant: Current visit: No Status: Acute Continue mycophenolate and prograf; check prograf level. Cover with stress dose steroids as she is also on prednisone. If the patient is found to have SBO/cannot tolerate PO, we would seek transfer to a tertiary care facility as the patient would require IV immunosuppressants which our hospital does not have. (6) Hypercoagulable state, primary: Current visit: No Status: Acute Continue coumadin; daily INR checks (7) Seizure disorder: Current visit: No Status: Chronic Continue keppra (8) DVT prophylaxis: Current visit: No Status: Acute On therapeutic coumadin (9) Discharge planning issues: Current visit: No Status: Acute Full code History of Present Illness Chief Complaint: fevers, weakness at home Narrative: Ms Farah is a 53 year old female with PMHx of kidney transplant (this is her 3rd) on tripple immunosuppressive therapy, neurogenic bladder (intermittent catheterization at home), prior episode of small bowel obstruction, hypercoagulable state on coumadin, hypertension, seizure disorder, VRE colonization, who has been having fevers for the last 5 days. In addition, she has been getting progressively weaker and her mobility has decreased. She has been taking tylenol at home for fevers. When asked about urinary symptoms, he patient simply says I can't pee. She cannot give me any more details than that. Patient's guardian states that it's also been noticed that she has been more dyspneic on exertion than her normal. The patient admits to eating lots of salty foods at home. She denies a cough and chest pain. She also states she had a large BM today; however, since then her abdomen has felt hard and she hasn't been able to pass flatus. She does report some abdominal pain - at the same time, she is hungry and thirsty and is asking for a sandwich. In the ED, she was found to have a UTI. She had a urine culture done on 10/14/18 (ordered by her transplant team - Dr Mina). This grew 2 strains of E. Coli, both susceptible to cephalosporins; VRE did not grow in these urine culture. Her chest imaging revealed what appears to be CHF, which is new to Darlene. Dr Mina was contacted, recommended admission for IV antibiotics and IV lasix. We were asked to admit the patient for further care. Review of Systems Review of Systems 12 systems reviewed. Pertinent positives and negatives as per [facility] Medical History Chronic anticoagulation Chronic kidney disease Convulsions Hyperparathyroidism Neurogenic bladder Osteoporosis Peripheral neuropathy Protein S deficiency TBI (traumatic brain injury) Surgical History Colonoscopy - MAC (02/11/15) Fistula creation Renal Transplant Social History Smoking/Tobacco Use Status: Never Alcohol Intake: never Drug use: Never Substance use type: does not use Do you feel safe at home: Yes Do you feel safe in your relationship?: Yes Additional Social history: Lives in care home in [place]. Has VNA care there as well. Meds Home Medications Medication Instructions Recorded Confirmed Type acetaminophen [Tylenol] 650 mg PO PRN 08/15/13 10/19/18 History alendronate 70 mg PO DIRECTED 08/15/13 10/19/18 History levetiracetam [Keppra] 1,500 mg PO BID 08/15/13 10/19/18 History Nii Protect 1 applic TOPICAL . DIRECTED PRN 08/04/18 10/19/18 History docusate sodium 100 mg PO DAILY PRN 08/04/18 10/19/18 History polyethylene glycol 3350 [Miralax] 17 g PO DAILY PRN 08/04/18 10/19/18 History cetirizine 10 mg PO DAILY PRN 10/19/18 10/19/18 History citalopram 20 mg PO DAILY 10/19/18 10/19/18 History esomeprazole magnesium [Nexium] 40 mg PO DAILY 10/19/18 10/19/18 History guaifenesin [Tussin] 200 mg PO Q4H PRN 10/19/18 10/19/18 History hydrocortisone 1 applic TOPICAL BID-QID PRN 10/19/18 10/19/18 History mycophenolate mofetil 250 mg PO BID 10/19/18 10/19/18 History prednisone 5 mg PO Q OTHER DAY 10/19/18 10/19/18 History tacrolimus [Prograf] 2 mg PO Q12H 10/19/18 10/19/18 History warfarin 5 mg PO DAILY 10/19/18 10/19/18 History Allergies Allergy/AdvReac Type Severity Reaction Status Date / Time codeine Allergy Unverified 10/19/18 13:53 divalproex sodium Allergy Unverified 10/19/18 13:53 [From Depakote] povidone-iodine AdvReac Skin Rash Unverified 10/19/18 13:53 [From Betadine] soap [From Betadine] AdvReac Skin Rash Unverified 10/19/18 13:53 Exam Narrative Exam Narrative: General: Very pleasant middle-aged female, mildly anxious, heavily relies on her guardian to tell her story, A&Ox3, NAD, not short of breath visibly when talking to me Neurological: A&Ox3, no obvious focal deficits Psychiatric: anxious, but appropriate speech pattern/content Skin: intact HEENT: Atraumatic, normocephalic, EOMI, dry MM, clear oropharynx, no s ubmandibular or cervical lymphadenopathy, no goiter or JVD Cardiovascular: RRR, mildly tachycadic, no m/r/g Lungs: rales at B bases Gastrointestinal: abdomen is firm in RUQ; it is not tender on palpation, nondistended Extremities: LUE AV fistula with palpable thrill and a bruit; 1+ BLE edema, symmetric, no clubbing/cyanosis, 1+ pedal pulses B Results Imaging Additional studies: EKG: HR 77, NSR, no acute ischemia CXR: Findings which could be due to congestive heart failure with asymmetric pulmonary edema versus bilateral bronchitis and asymmetric bilateral pneumonia. Labs : 10/19/18 14:50 10/19/18 14:50 Laboratory Results - last 24 hr 10/19/18 10/19/18 10/19/18 14:50 14:50 14:52 WBC 4.68 RBC 4.16 Hgb 11.5 L Hct 34.4 L MCV 82.7 MCH 27.6 MCHC 33.4 RDW 13.7 Plt Count 222 MPV 8.9 Immature Gran % 0.4 Neutrophils % 78.1 Lymphocytes % 10.9 Monocytes % 8.5 Eosinophils % 1.7 Basophils % 0.4 Absolute Neutrophils 3.65 Absolute Lymphocytes 0.51 L Absolute Monocytes 0.40 Absolute Eosinophils 0.08 Absolute Basophils 0.02 PT INR Sodium 132 L Potassium 4.0 Chloride 97 L Carbon Dioxide 24.2 Anion Gap 10.8 BUN 18 Creatinine 0.68 Estimated GFR/1.73 m2 >= 60.00 Glucose 136 H Calcium 8.1 L Magnesium Total Bilirubin 0.8 AST 30 ALT 26 Alkaline Phosphatase 58 Troponin I < 0.05 NT-Pro-B Natriuret Pep 1325 H Total Protein 6.8 Albumin 2.8 L Urine Color Urine Clarity Urine pH Ur Specific [place] Urine Protein Urine Ketones Urine Blood Urine Nitrite Urine Bilirubin Urine Urobilinogen Ur Leukocyte Esterase Urine RBC Urine WBC Ur Epithelial Cells Urine Crystals Urine Bacteria Urine Casts Urine Mucus Urine Other Ur Culture Indicated? Urine Glucose 10/19/18 10/19/18 10/19/18 14:52 14:52 15:11 WBC RBC Hgb Hct MCV MCH MCHC RDW Plt Count MPV Immature Gran % Neutrophils % Lymphocytes % Monocytes % Eosinophils % Basophils % Absolute Neutrophils Absolute Lymphocytes Absolute Monocytes Absolute Eosinophils Absolute Basophils PT 23.9 H INR 2.4 H Sodium Potassium Chloride Carbon Dioxide Anion Gap BUN Creatinine Estimated GFR/1.73 m2 Glucose Calcium Magnesium 1.6 L Total Bilirubin AST ALT Alkaline Phosphatase Troponin I NT-Pro-B Natriuret Pep Total Protein Albumin Urine Color Yellow Urine Clarity Clear Urine pH 8.5 H Ur Specific [place] 1.015 Urine Protein Trace H Urine Ketones Negative Urine Blood Negative Urine Nitrite Positive H Urine Bilirubin Negative Urine Urobilinogen 0.2 Ur Leukocyte Esterase Small H Urine RBC 0-2 Urine WBC 20-50 Ur Epithelial Cells Negative Urine Crystals Negative Urine Bacteria Many Urine Casts Negative Urine Mucus Negative Urine Other Rare transitional Ur Culture Indicated? Yes Urine Glucose Negative Last Vital Signs Temp 37.5 C 10/19/18 19:36 Pulse 76 10/19/18 19:36 Resp 16 10/19/18 19:36 BP 132/55 L 10/19/18 19:36 Pulse Ox 97 10/19/18 19:36
[2018-10-19 21:30] LABS: TSH 1.08 uIU/mL (0.358-3.74)
--- NOTE | 2018-10-19 21:45 | DI.RAD_ITS ---
SYMPTOM/DIAGNOSIS: SUSPICION FOR ILEUS FLAT AND DECUBITUS VIEWS OF ABDOMEN: No free air is seen. The lung bases appear clear. There is mild diffuse gaseous distension of the colon and small bowel. There are no findings to suggest obstruction. Multiple vascular clips in the low pelvis. No organomegaly is seen. Vascular calcifications are noted. There are severe degenerative changes of the left hip and moderate degenerative changes of the right hip. IMPRESSION Mild gaseous distension suggestive of mild ileus.
[2018-10-19] MEDS: Tacrolimus 1 MG CAP 2 MG PO (22:30)
[2018-10-19] MEDS: levETIRAcetam 500 MG TAB 1500 MG PO (22:31)
--- NOTE | 2018-10-19 22:38 | DI.VRAD_ITS ---
EXAM: XR Abdomen, 2 Views EXAM DATE/TIME: 10/19/2018 9:41 PM CLINICAL HISTORY: 53 years old, female; Abdominal pain; Generalized; Patient HX: Suspicion for ileus. ; Additional info: Left lateral decub done, patient unable to stand upright. TECHNIQUE: Imaging protocol: [id number] and left side down lateral decubitus views were obtained along with an AP supine view, 3 views total. COMPARISON: US renal 08/05/2018 9:42 AM FINDINGS: Lower thorax: The visualized lung bases are clear. Cardiomegaly. Gastrointestinal tract: Nonobstructive bowel gas pattern. Moderate gas in the small and large bowel. No pneumatosis or portal gas. Intraperitoneal space: No free air is evident. No gross soft tissue masses. Intrapelvic surgical clips on the left. Organs: A few small calcifications project over the renal distributions bilaterally. These are nonspecific and may represent vascular calcifications or small renal stones. No evidence of organomegaly. Bones/joints: Diffuse osteopenia. IMPRESSION: 1. No free air. No gross pneumatosis or portal gas. 2. Moderate colonic gas, nonobstructive pattern. 3. Cardiomegaly. Dictated and Authenticated by: Leonard Hernandez MD. Ordering:ARIEL Chinchilla MD
[2018-10-19 22:44] LABS: Troponin I < 0.05 ng/mL (0.00-0.06)
[2018-10-19] MEDS: Docusate Sodium 100 MG CAP PO (23:28)
[2018-10-19] MEDS: Hydrocortisone SOD SUC. 100 MG VIAL 50 MG IVP (23:35)
[2018-10-19 23:42] VITALS: BP 110/62; PULSE 72; RESP 18; TEMP 36.9; O2SAT 96
[2018-10-20] VITALS (9 sets, daily range): BP systolic 96–113; BP diastolic 43–61; PULSE 63–74; RESP 17–18; TEMP 36.2–36.6; O2SAT 94–99
[2018-10-20] MEDS: Hydrocortisone SOD SUC. 100 MG VIAL 50 MG IVP ×3 (05:34→19:33)
[2018-10-20] MEDS: Normal Saline Flush 10 ML SYR IVP ×5 (05:34→19:33)
[2018-10-20 06:56] LABS: Absolute Monocyte Count 0.13 k/cumm (0.11-0.7); Absolute Neutrophil Count 2.17 k/cumm (1.2-6.7); HCT 36.2 % (36.0-46.0); HGB 12.1 g/dL (12.0-15.5); Lymphocytes % 23.3; Mean Corp. HGB Concentration 33.4 g/dL (32.0-36.0); Mean Corpuscular Hemoglobin 27.8 pg (27.0-33.0); Mean Corpuscular Volume 83.2 fL (80-95); Mean Platelet Volume 9.1 fL (8.0-11.0); Monocytes % 4.3; Neutrophils % 72.4; Platelet Count 256 x1000/uL (130-400); RBC 4.35 m/cumm (4.00-5.20); RBC Distribution Width 13.7 % (11.7-14.6)
[2018-10-20 07:07] LABS: INR 2.4 (0.9-1.1); Prothrombin Time 24.4 sec (9.3-11.0)
[2018-10-20 07:12] LABS: Anion Gap 8.1 mmol/L (3-11); BUN 17 mg/dL (7-18); CO2 27.9 mmol/L (21.0-32.0); CREATININE 0.78 mg/dL (0.55-1.02); Calcium 8.1 mg/dL (8.5-10.1); Chloride 100 mmol/L (98-107); Glucose 180 mg/dL (70-100); Magnesium 1.8 mg/dL (1.8-2.4); Potassium 3.7 mmol/L (3.5-5.1); Sodium 136 mmol/L (136-145)
[2018-10-20 07:33] LABS: Troponin I < 0.05 ng/mL (0.00-0.06)
[2018-10-20] MEDS: Furosemide 20 MG/2 ML VIAL IVP ×2 (07:34→16:01)
[2018-10-20] MEDS: levETIRAcetam 500 MG TAB 1500 MG PO ×2 (07:34→19:36)
[2018-10-20] MEDS: Docusate Sodium 100 MG CAP PO (07:34)
[2018-10-20] MEDS: Tacrolimus 0.5 MG CAP 2 MG PO ×2 (07:54→19:34)
[2018-10-20] MEDS: Esomeprazole 40 MG CAPCR PO (07:54)
[2018-10-20] MEDS: Citalopram 20 MG TAB PO (07:54)
[2018-10-20] MEDS: Acetaminophen 325 MG TAB 650 MG PO ×2 (07:54→16:08)
--- NOTE | 2018-10-20 08:35 | OT.INIE ---
Occupational Therapy Notes Inpatient Occupational Therapy Evaluation Date: 10/20/18 Referring Doctor: Renée Dumont MD OT Orders: Eval and Treat Precautions: Fall, Decreased safety awareness, Standard PATIENT PROFILE/ADMITTING DIAGNOSIS: Pt is a 53 year old female admitted through the ER on 10/19/18 for UTI, pulmonary edema, CHF, Tinea Cruris, hypomagnesemia and is s/p renal transplant x3 and has a neurogenic bladder. Past Medical History: Chronic anticoagulation Chronic kidney disease Convulsions Hyperparathyroidism Neurogenic bladder Osteoporosis Peripheral neuropathy Protein S deficiency TBI (traumatic brain injury) Surgical History Colonoscopy - MAC (02/11/15) Fistula creation Renal Transplant Social History/Home Situation: Pt states that she lives in a snf setting in [place], [place]. She reports that she is functionally (I) with all ADLs/IADLs and later states that she requires (A) with putting on (B) socks, pulling up her pants, and helping her whenever she needs it for food. She reports that she is unable to cut her own food. She uses a shower chair in the shower and states that she uses a FWW for functional mobility. Equipment owned/DME: FWW, shower chair SUBJECTIVE: Pt was sitting in chair when OT arrived. She was agreeable to OT session reporting that she was going down for an xray. OBJECTIVE: General Observation: IV, pt has visual edema noted in (L) UE, pt is very emotional and cries multiple times throughout session for various places with pain. Nursing was notified. When OT asked pt where her pain was she states she did not have any. Mental Status: Alert to name Pain: c/o pain in (B) UE with AROM, (B) LE with cramping ROM: RUE Shoulder flexion limited to 130*, elbow WNL, hand and digits WNL L UE Shoulder flexion WNL, elbow WNL, hand and digits WNL STRENGTH: RUE Shoulder flexion 3-/5, bicep 3-/5, tricep 3/5, electronic components assembler is weak LUE Shoulder flexion 3-/5, bicep 3-/5, tricep 3-/5, electronic components assembler is weak FUNCTIONAL MOBILITY/ADLS: BATHING Pt denies although was able to functionally demonstrate AROM needed to perform UE bathing. She is unable to reach her LE (I) which will limit her functional (I) in UE/LE dressing and bathing routines. DRESSING Pt is max (A) don and doff (B) LE socks EATING Sitting in chair required max (A) for opening containers, it is unclear as to whether pt could perform this (I) or that she is unable to open them. (I) to food to mouth translation. BALANCE: Static sitting Good Dynamic Sitting Good SPECIAL TESTS: Daily Activity Limitations Standardized Measure [facility] AM -PAC ?6 clicks? Daily Activity Inpatient Short Form: Raw score: 15 Standardized score: 34.69 CMS score: 56.46% INFORMED CONSENT/EDUCATION: Pt instructed in purpose of OT Consult and plan of care. ASSESSMENT: Patient is a 53-year-old female referred to occupational therapy services with diagnosis of UTI, pulmonary edema, CHF, tinea cruris, hypomagnesemia. Patient presents with clinical signs and symptoms consistent with dx, as demonstrated by the following impairment level findings: decreased (B) UE strength, decreased (B) UE AROM, decreased functional activity tolerance, pain in UE/LE, decreased performance in ADLS/IADLs. Impairments are contributing to the following functional limitations: Deficit in LE bathing and dressing, pain in UE and c/o cramping in LE limiting LE (I), decreased functional ROM limiting (I) in ADL/IADL routines, decreased functional functional activity tolerance. AMPAC score 15, CMS score 56.46% Patient is assessed as a Moderate 52318 complexity based on the following: History: See Above Examination: See Above Presentation: Evolving Decision Making: AMPAC score 15, CMS score 56.46% GOALS Goals x1 week 1. Transfers- FWW (S) 2. Dressing Sitting in chair mod (A) don and doffing (B) socks and pants, (I) donning and doffing UE 3. Bathing Sitting in chair min (A) LE, (I) UE 4. Toileting on toilet min (A) 5. Eating sitting in chair (I) 6. Grooming sitting in chair (I) teeth and hair PLAN OF CARE/TREATMENT PLAN: 1x/day, 5 days/ week x 1week Initiate Occupational Therapy Services for bathing, dressing, grooming, toileting, eating, transfer training. DISCHARGE RECOMMENDATIONS Return to home group setting when medically cleared per MD. TREATMENT TIME/MINUTES/CODES 49848, 22 minutes (08:00) Nichole Garrett, OTR/L [facility]
--- NOTE | 2018-10-20 08:42 | OTIE_ITS ---
Occupational Therapy Notes Inpatient Occupational Therapy Evaluation Date: 10/20/18 Referring Doctor: Renée Dumont MD OT Orders: Eval and Treat Precautions: Fall, Decreased safety awareness, Standard PATIENT PROFILE/ADMITTING DIAGNOSIS: Pt is a 53 year old female admitted through the ER on 10/19/18 for UTI, pulmonary edema, CHF, Tinea Cruris, hypomagnesemia and is s/p renal transplant x3 and has a neurogenic bladder. Past Medical History: Chronic anticoagulation Chronic kidney disease Convulsions Hyperparathyroidism Neurogenic bladder Osteoporosis Peripheral neuropathy Protein S deficiency TBI (traumatic brain injury) Surgical History Colonoscopy - MAC (02/11/15) Fistula creation Renal Transplant Social History/Home Situation: Pt states that she lives in a intermediate setting in [place], [place]. She reports that she is functionally (I) with all ADLs/IADLs and later states that she requires (A) with putting on (B) socks, pulling up her pants, and helping her whenever she needs it for food. She reports that she is unable to cut her own food. She uses a shower chair in the shower and states that she uses a FWW for functional mobility. Equipment owned/DME: FWW, shower chair SUBJECTIVE: Pt was sitting in chair when OT arrived. She was agreeable to OT session reporting that she was going down for an xray. OBJECTIVE: General Observation: IV, pt has visual edema noted in (L) UE, pt is very emotional and cries multiple times throughout session for various places with pain. Nursing was notified. When OT asked pt where her pain was she states she did not have any. Mental Status: Alert to name Pain: c/o pain in (B) UE with AROM, (B) LE with cramping ROM: RUE Shoulder flexion limited to 130*, elbow WNL, hand and digits WNL L UE Shoulder flexion WNL, elbow WNL, hand and digits WNL STRENGTH: RUE Shoulder flexion 3-/5, bicep 3-/5, tricep 3/5, recreation activities coordinator is weak LUE Shoulder flexion 3-/5, bicep 3-/5, tricep 3-/5, recreation activities coordinator is weak FUNCTIONAL MOBILITY/ADLS: BATHING Pt denies although was able to functionally demonstrate AROM needed to perform UE bathing. She is unable to reach her LE (I) which will limit her functional (I) in UE/LE dressing and bathing routines. DRESSING Pt is max (A) don and doff (B) LE socks EATING Sitting in chair required max (A) for opening containers, it is unclear as to whether pt could perform this (I) or that she is unable to open them. (I) to food to mouth translation. BALANCE: Static sitting Good Dynamic Sitting Good SPECIAL TESTS: Daily Activity Limitations Standardized Measure [facility] AM -PAC ?6 clicks? Daily Activity Inpatient Short Form: Raw score: 15 Standardized score: 34.69 CMS score: 56.46% INFORMED CONSENT/EDUCATION: Pt instructed in purpose of OT Consult and plan of care. ASSESSMENT: Patient is a 53-year-old female referred to occupational therapy services with diagnosis of UTI, pulmonary edema, CHF, tinea cruris, hypomagnesemia. Patient presents with clinical signs and symptoms consistent with dx, as demonstrated by the following impairment level findings: decreased (B) UE strength, decreased (B) UE AROM, decreased functional activity tolerance, pain in UE/LE, decreased performance in ADLS/IADLs. Impairments are contributing to the following functional limitations: Deficit in LE bathing and dressing, pain in UE and c/o cramping in LE limiting LE (I), decreased functional ROM limiting (I) in ADL/IADL routines, decreased functional functional activity tolerance. AMPAC score 15, CMS score 56.46% Patient is assessed as a Moderate 41742 complexity based on the following: History: See Above Examination: See Above Presentation: Evolving Decision Making: AMPAC score 15, CMS score 56.46% GOALS Goals x1 week 1. Transfers- FWW (S) 2. Dressing Sitting in chair mod (A) don and doffing (B) socks and pants, (I) donning and doffing UE 3. Bathing Sitting in chair min (A) LE, (I) UE 4. Toileting on toilet min (A) 5. Eating sitting in chair (I) 6. Grooming sitting in chair (I) teeth and hair PLAN OF CARE/TREATMENT PLAN: 1x/day, 5 days/ week x 1week Initiate Occupational Therapy Services for bathing, dressing, grooming, toileting, eating, transfer training. DISCHARGE RECOMMENDATIONS Return to home group setting when medically cleared per MD. TREATMENT TIME/MINUTES/CODES 24523, 22 minutes (08:00) Nicohle Garrett, OTR/L [facility]
--- NOTE | 2018-10-20 09:10 | MERGE_ITS ---
*[facility]* *[facility]* [address] [place] [address] Date of study: 10/20/2018 Transthoracic Echocardiography M-mode, complete 2D, complete spectral Doppler, and color Doppler *STUDY CONCLUSIONS* Summary: 1. Left ventricle: The cavity size was mildly dilated. Systolic function was hyperdynamic. The estimated ejection fraction was 65-70%. EF > 60%, ESD > 40 mm. Findings consistent with diastolic dysfunction. Doppler parameters are consistent with high ventricular filling pressure. 2. Aortic valve: There was mild regurgitation. 3. Mitral valve: Mildly calcified annulus. Moderately thickened, myxomatous leaflets anterior and posterior. Mild prolapse, involving the anterior leaflet and the posterior leaflet. There was moderate regurgitation directed eccentrically. 4. Left atrium: The atrium was moderately dilated. 5. Right ventricle: The cavity size was normal. Wall thickness was normal. The moderator band was in a normal position. Systolic function was normal. 6. Atrial septum: No defect or patent foramen ovale was identified. 7. Pulmonary arteries: Pulmonary systolic pressure was in the range of 15mm Hg to 25mm Hg. 8. Inferior vena cava: The vessel was patent and normal in size. The respirophasic diameter changes were in the normal range (greater than or equal to 50%), consistent with normal central venous pressure. *PATIENT PRESENTATION* Height: 165.1cm ((65in) ) S/D Pressure: 103 / 60 Weight: 55.8kg ((122.7lb) ) BSA: 1.6m^2 Test start time: 09:20 AM. Test stop time: 10:20 AM. PERFORMING Unknown PERFORMING [facility] DIRECTOR OPERATIONS BROADCAST RT Diogenes Cortez)(CT), [facility] REFERRING Renée Dumont *PROCEDURE DATA* Procedure information: The patient was identified by two identifiers. This study was interpreted by [facility]. Pertinent images and digital data are archived for permanent storage and are available for subsequent review. Comparison was made to the study of 07/23/2008. Study status: Routine. Transthoracic echocardiography. M-mode, complete 2D, complete spectral Doppler, and color Doppler. A Transthoracic Echocardiogram was performed. Scanning was performed from the parasternal, apical, subcostal, and suprasternal notch acoustic windows. Images were obtained using an [id number] cardiac ultrasound machine. Image quality was good. Study completion: The patient tolerated the procedure well. History: PMH: New onset CHF. *CARDIAC ANATOMY* Left ventricle: The cavity size was mildly dilated. Systolic function was hyperdynamic. The estimated ejection fraction was 65-70%. The tissue Doppler parameters were abnormal. Findings consistent with diastolic dysfunction. Doppler parameters are consistent with high ventricular filling pressure. Aortic valve: Trileaflet. Doppler: There was no stenosis. There was mild regurgitation. VTI ratio of LVOT to aortic valve: 0.72. Valve area (VTI): 2.5cm^2. Indexed valve area (VTI): 1.6cm^2/m^2. Peak velocity ratio of LVOT to aortic valve: 0.69. Valve area (Vmax): 2.4cm^2. Indexed valve area (Vmax): 1.5cm^2/m^2. Mean velocity ratio of LVOT to aortic valve: 0.65. Valve area (Vmean): 2.2cm^2. Indexed valve area (Vmean): 1.4cm^2/m^2. Mean gradient (S): 6.1mm Hg. Peak gradient (S): 12.4mm Hg. Aorta: Aortic root: The aortic root was normal in size. Ascending aorta: The ascending aorta was mildly dilated. Mitral valve: Mildly calcified annulus. Moderately thickened, myxomatous leaflets anterior and posterior. Mild prolapse, involving the anterior leaflet and the posterior leaflet. Doppler: There was no evidence for stenosis. There was moderate regurgitation directed eccentrically. Valve area by pressure half-time: 3.3cm^2. Indexed valve area by pressure half-time: 2cm^2/m^2. Peak gradient (D): 5.5mm Hg. Left atrium: The atrium was moderately dilated. Atrial septum: No defect or patent foramen ovale was identified. Right ventricle: The cavity size was normal. Wall thickness was normal. The moderator band was in a normal position. Systolic function was normal. Pulmonic valve: Doppler: There was no evidence for stenosis. There was no significant regurgitation. Tricuspid valve: Doppler: There was mild regurgitation. Pulmonary artery: Poorly visualized. Pulmonary systolic pressure was in the range of 15mm Hg to 25mm Hg. Right atrium: The atrium was normal in size. Pericardium: There was no pericardial effusion. Systemic veins: Inferior vena cava: Well visualized. The vessel was patent and normal in size. The respirophasic diameter changes were in the normal range (greater than or equal to 50%), consistent with normal central venous pressure. Baseline ECG: Normal sinus rhythm. Measurements Left ventricle Value Reference LV ID, ED, PLAX (H) 6.1 cm 3.5 - 6.0 LV ID, ES, PLAX (H) 4.4 cm 2.1 - 4.0 LV PW thickness, ED, PLAX 1.1 cm LV end-diastolic volume, 1-p A2C 107 ml LV ejection fraction, 1-p A2C 66 % LV end-diastolic volume, 1-p A4C 96 ml LV ejection fraction, 1-p A4C 63 % LV e', lateral 0.095 m/sec LV E/e', lateral 12 LV e', medial 0.077 m/sec LV E/e', medial 15 LV e', average 0.086 m/sec LV E/e', average 14 Ventricular septum Value Reference IVS thickness, ED, PLAX 1.0 cm LVOT Value Reference LVOT ID, A-P 2.1 cm LVOT area 3.4 cm^2 LVOT peak velocity, S 1.22 m/sec LVOT mean velocity, S 0.74 m/sec LVOT VTI, S 25.2 cm LVOT peak gradient, S 5.9 mm Hg LVOT mean gradient, S 2.6 mm Hg Stroke volume (SV), LVOT DP 87 ml Stroke index (SV/bsa), LVOT DP 54 ml/m^2 Aortic valve Value Reference Aortic valve peak velocity, S 1.8 m/sec Aortic valve mean velocity, S 1.14 m/sec Aortic valve VTI, S 35.0 cm Aortic mean gradient, S 6.1 mm Hg Aortic peak gradient, S 12.4 mm Hg VTI ratio, LVOT/AV 0.72 Aortic valve area, VTI 2.5 cm^2 Velocity ratio, peak, LVOT/AV 0.69 Aortic valve area, peak velocity 2.4 cm^2 Velocity ratio, mean, LVOT/AV 0.65 Aortic valve area, mean velocity 2.2 cm^2 Aortic valve area/bsa, mean velocity 1.4 cm^2/m^2 Aorta Value Reference Aortic root ID, ED 3.6 cm Ascending aorta ID, A-P, S 3.4 cm Left atrium Value Reference LA ID, A-P, ES 3.4 cm LA ID/bsa, A-P 2.1 cm/m^2 <=2.2 LA area, ES, A4C (H) 23.7 cm^2 8.8 - 23.4 LA area, ES, A2C 28 cm^2 LA volume/bsa, ES, 1-p A4C 48 ml/m^2 LA volume, ES, 2-p 71 ml LA volume/bsa, ES, 2-p 45 ml/m^2 LA/aortic root ratio 0.95 Mitral valve Value Reference Mitral E-wave peak velocity 1.18 m/sec Mitral A-wave peak velocity 0.98 m/sec Mitral deceleration time (H) 232 ms 150 - 230 Mitral pressure half-time 67 ms Mitral peak gradient, D 5.5 mm Hg Mitral E/A ratio, peak 1.2 Mitral valve area, PHT, DP 3.3 cm^2 Pulmonary veins Value Reference Pulmonary vein peak velocity, S 0.66 m/sec Pulmonary vein peak velocity, D 0.31 m/sec Pulmonary vein velocity ratio, peak, 2.15 S/D Tricuspid valve Value Reference Tricuspid regurg peak velocity 2.1 m/sec Tricuspid peak RV-RA gradient 16.9 mm Hg Right atrium Value Reference RA area, ES, A4C 15.3 cm^2 8.3 - 19.5 Legend: (L) and (H) fernando values outside specified reference range. I have personally reviewed the images and have reviewed and edited the reported findings. Electronically signed by Kyle Leary MD 10/20/2018 13:00
--- NOTE | 2018-10-20 10:34 | PDOC.CMIN ---
- If Service Date Differs Date of service: 10/20/18 Time of Service: 10:34 Care Management Initial Assess REASON FOR HOSPITALIZATION:: UTI/ CHF PAST MEDICAL HISTORY/PAST SURGICAL HISTORY:: Medical: chronic anticoagulation, CKD, convulsions, hyperparathyroidism, neurogenic bladder, osteoporosis, peripheral neuropathy, protein S deficiency, TBI. Surgical: colonoscopy, fistula creation, renal transplant. PREVIOUS FUNCTIONAL STATUS/SOCIAL/FAMILY SUPPORTS:: Darlene is 53 yo single woman who lives in a women's skilled nursing in [place]. She has been there for several years. She has a sister, Nicol Gruber, who is her legal guardian. Her sister was apparently present on admission and reported that Darlene is usually not confused at baseline. She gets her care from staff at skilled nursing and also has HH services. ADVANCE DIRECTIVES:: Sister Nallely Gruber is her court appointed legal guardian. Copy of appointment is scanned into her record. Has patient been provided with information about the portal?: No Did the patient sign up for the portal?: No CODE STATUS:: Full Code INSURANCE COVERAGE / FINANCIAL ISSUES:: Medicare. Medicaid CURRENT HOME/COMMUNITY SERVICES/EQUIPMENT:: She is followed by [facility]. Has raised toilet seat, tub seat, HH shower, wheelchair and walker for home use. PRIMARY CARE PHYSICIAN:: POTENTIAL DISCHARGE NEEDS:: Follow up with primary care, return to skilled nursing setting [facility] in [place], [place] she will continue to be followed by palliative care upon discharge. PATIENT/FAMILY EDUCATION NEEDS:: Discharge education and limitations and follow up plan of care including ask me three education. Family should particpate in palliative care consult ANTICIPATED BARRIERS TO DISCHARGE:: None identified TRANSPORTATION:: Via private car with family when medically ready per provider. PLAN:: Yoselin is being treated for a UTI and and CHF she will have a palliative consult this evening with . She will return back to skilled nursing when she is medically ready per provider. CM to continue to provide support discharge planning and disposition.
--- NOTE | 2018-10-20 10:38 | INITIAL_ITS ---
- If Service Date Differs Date of service: 10/20/18 Time of Service: 10:34 Care Management Initial Assess REASON FOR HOSPITALIZATION:: UTI/ CHF PAST MEDICAL HISTORY/PAST SURGICAL HISTORY:: Medical: chronic anticoagulation, CKD, convulsions, hyperparathyroidism, neurogenic bladder, osteoporosis, peripheral neuropathy, protein S deficiency, TBI. Surgical: colonoscopy, fistula creation, renal transplant. PREVIOUS FUNCTIONAL STATUS/SOCIAL/FAMILY SUPPORTS:: Darlene is 53 yo single woman who lives in a women's longterm in [place]. She has been there for several years. She has a sister, Nicol Gruber, who is her legal guardian. Her sister was apparently present on admission and reported that Darlene is usually not confused at baseline. She gets her care from staff at longterm and also has HH services. ADVANCE DIRECTIVES:: Sister Nalleyl Gruber is her court appointed legal guardian. Copy of appointment is scanned into her record. Has patient been provided with information about the portal?: No Did the patient sign up for the portal?: No CODE STATUS:: Full Code INSURANCE COVERAGE / FINANCIAL ISSUES:: Medicare. Medicaid CURRENT HOME/COMMUNITY SERVICES/EQUIPMENT:: She is followed by [facility]. Has raised toilet seat, tub seat, HH shower, wheelchair and walker for home use. PRIMARY CARE PHYSICIAN:: POTENTIAL DISCHARGE NEEDS:: Follow up with primary care, return to longterm setting [facility] in [place], [place] she will continue to be followed by palliative care upon discharge. PATIENT/FAMILY EDUCATION NEEDS:: Discharge education and limitations and follow up plan of care including ask me three education. Family should particpate in palliative care consult ANTICIPATED BARRIERS TO DISCHARGE:: None identified TRANSPORTATION:: Via private car with family when medically ready per provider. PLAN:: Yoselin is being treated for a UTI and and CHF she will have a palliative consult this evening with . She will return back to longterm when she is medically ready per provider. CM to continue to provide support discharge planning and disposition.
--- NOTE | 2018-10-20 11:21 | PHARADMIT ---
Admission Pharmacy Clinical Review UTI, CHF Code Status Full Code Current Weight 55.6 kg Renally Cleared and Narrow Therapeutic Index Meds Crcl ~69.7 mL/min current meds okay QTc Value / Action Taken QTc 462 BP Control, Fever BP 103/60 afebrile Electrolytes reviewed within normal limits DVT Prophylaxis pt is on warfarin Opiate Usage / Scheduled Bowel Regimen Ordered no/prn Plt/SCr for Heparin / Enoxaparin plt 256 SCr 0.78 INR for Warfarin INR 2.4 H/H stable, WBC/Bands h/h 12.1/36.2 WBC 3.00 Antibiotic appropriateness ceftriaxone Cultures and Sensitivities blood and urine cultures pending urine culture from 10/14/18 grew E.coli sensitive to ceftriaxone Surgical ABX d/c within 24 hr n/a DM control / Insulin Dosing BG 180 none Heart Failure (Check EF%) (SHEILA's, B-Block, Diuretics) furosemide IV to PO Switch n/a Home Meds Reviewed esomeprazole may increase the serum concentration of tacrolimus, monitor concentrations when using both in combination or consider changing as rabeprazole or pantoprazole may be less likely to significantly interact Home Meds Not Ordered alendronate Comments kidney transplant pt pt has both prednisone and stress dose hydrocortisone ordered, MDA aware and wants both ordered
[2018-10-20] MEDS: Hydrocortisone 1% CR 30 GM TUBE TP (13:00)
--- NOTE | 2018-10-20 13:41 | W.PM.PROGNOT ---
Date of Service Date of service: 10/20/18 Time of Service: 13:41 Assessment and Plan (1) UTI (urinary tract infection): Current visit: Yes Status: Acute Cx from 10/14/18 with E. Coli, 2 species, sensitive to cephalosporins. Current urine culture growing Gram negative rods. Continue Ceftriaxone, day #2. Blood cultures pending. Continue to monitor cultures. Continue kidd catheter. (2) Abdominal pain: Current visit: Yes Status: Acute Possibly mild ileus noted on abdominal x-ray. She has had 2 bowel movements today. She is tolerating her diet. Encourage frequent ambulation. Continue to monitor. (3) New onset of congestive heart failure: Current visit: Yes Status: Acute Echocardiogram shows LVEF 65-70% with findings consistent with diastolic dysfunction and moderate mitral regurgitation. She is diuresing well with BID IV lasix, still appears mildly fluid overloaded by physical exam, weight down 0.2 kg. Continue IV lasix, continue to follow intake and output, continue with kidd catheter, continue to follow daily weight. (4) Neurogenic bladder: Current visit: No Status: Acute Continue kidd catheter while hospitalized for UTI and diuresing with IV lasix. (5) S/P kidney transplant: Current visit: No Status: Acute Continue mycophenolate and prograf, prograf level pending. Continue with stress dose steroids as she is also on prednisone, begin to taper steroids. (6) Hypercoagulable state, primary: Current visit: No Status: Acute INR therapeutic at 2.4 today. Continue Coumadin with daily INRs. (7) Seizure disorder: Current visit: No Status: Chronic Continue keppra. (8) DVT prophylaxis: Current visit: No Status: Acute Therapeutic on coumadin. (9) Discharge planning issues: Current visit: No Status: Acute She is a FULL CODE. [facility] [place], she will return to the home when she is ready for discharge. This case was discussed with Dr. Ortega who is in agreement. Subjective Interval history since last seen: Darlene reports that she was short of breath this morning but feels better now, she received IV lasix this morning. She denies coughing or wheezing. She denies any abdominal pain, she states she had a huge bowel movement today. She denies nausea or vomiting. She reports increased weakness and hip pain when up walking. She ambulates with a walker. She reports leg cramps that have been ongoing. She continues to have a kidd catheter, draining clear, yellow urine. Her sister Nicol (guardian) is present and interested in a palliative consult. She had an Echocardiogram today which shows diastolic dysfunction, LVEF 65-70%. Exam Narrative Exam Narrative: General: Very pleasant middle-aged female, mildly anxious, sister/guardian present, A&Ox3. Sitting up in the chair. Neurological: A&Ox3, no obvious focal deficits Psychiatric: mildly anxious, answers questions appropriately, speech is clear. Skin: intact HEENT: Atraumatic, normocephalic, EOMI, moist mucous membranes. Neck: supple, no JVD Cardiovascular: regular rate and rhythm, no murmur appreciated. Lungs: respirations even and unlabored, rales to bilateral bases, no wheezing. Speaks in complete sentences without shortness of breath. Gastrointestinal: + bowel sounds, mildly tender on palpation of left abdomen, soft, nondistended. Extremities: LUE with AV fistula, BLE with +1 nonpitting edema, no clubbing/cyanosis, pedal pulses palpable bilaterally.l Objective Objective Clinical Data: Abnormal lab results 10/19/18 10/19/18 10/19/18 Range/Units 14:50 14:50 14:52 WBC (4.4-10.8) k/cumm Hgb 11.5 L (12.0-15.5) g/dL Hct 34.4 L (36.0-46.0) % Absolute Lymphocytes 0.51 L (1.2-3.4) k/cumm PT (9.3-11.0) sec INR (0.9-1.1) Sodium 132 L (136-145) mmol/L Chloride 97 L (98-107) mmol/L Glucose 136 H (70-100) mg/dL Calcium 8.1 L (8.5-10.1) mg/dL Magnesium (1.8-2.4) mg/dL NT-Pro-B Natriuret Pep 1325 H ( - 299) pg/mL Albumin 2.8 L (3.4-5.0) g/dL Urine pH (5-8) Urine Protein (Negative) mg/dL Urine Nitrite (Negative) Ur Leukocyte Esterase (Negative) 10/19/18 10/19/18 10/19/18 Range/Units 14:52 14:52 15:11 WBC (4.4-10.8) k/cumm Hgb (12.0-15.5) g/dL Hct (36.0-46.0) % Absolute Lymphocytes (1.2-3.4) k/cumm PT 23.9 H (9.3-11.0) sec INR 2.4 H (0.9-1.1) Sodium (136-145) mmol/L Chloride (98-107) mmol/L Glucose (70-100) mg/dL Calcium (8.5-10.1) mg/dL Magnesium 1.6 L (1.8-2.4) mg/dL NT-Pro-B Natriuret Pep ( - 299) pg/mL Albumin (3.4-5.0) g/dL Urine pH 8.5 H (5-8) Urine Protein Trace H (Negative) mg/dL Urine Nitrite Positive H (Negative) Ur Leukocyte Esterase Small H (Negative) 10/20/18 10/20/18 10/20/18 Range/Units 06:25 06:25 06:25 WBC 3.00 L D (4.4-10.8) k/cumm Hgb (12.0-15.5) g/dL Hct (36.0-46.0) % Absolute Lymphocytes 0.70 L (1.2-3.4) k/cumm PT 24.4 H (9.3-11.0) sec INR 2.4 H (0.9-1.1) Sodium (136-145) mmol/L Chloride (98-107) mmol/L Glucose 180 H (70-100) mg/dL Calcium 8.1 L (8.5-10.1) mg/dL Magnesium (1.8-2.4) mg/dL NT-Pro-B Natriuret Pep ( - 299) pg/mL Albumin (3.4-5.0) g/dL Urine pH (5-8) Urine Protein (Negative) mg/dL Urine Nitrite (Negative) Ur Leukocyte Esterase (Negative) Vital Signs Temperature 36.4 C L 10/20/18 12:00 Temperature Source Tympanic 10/20/18 12:00 Pulse 69 10/20/18 12:00 Pulse Rhythm Regular 10/20/18 07:30 Respiratory Rate 18 10/20/18 12:00 Respiratory Effort Non-Labored 10/20/18 07:30 Respiratory Depth Normal 10/20/18 07:30 Respiratory Pattern Normal 10/20/18 07:30 Blood Pressure 96/43 L 10/20/18 12:00 Blood Pressure Position Sitting 10/19/18 13:47 Pulse Oximetry 99 10/20/18 12:00 Oxygen Delivery Method Room Air 10/20/18 12:00 Oxygen Flow Rate 0 10/20/18 12:00 Pain Level 4 10/20/18 12:00 Comment 10/20/18 07:25 Intake & Output 10/19/18 10/20/18 10/20/18 23:59 11:59 23:59 Intake Total 100 / 110 180 / 420 240 / 420 Output Total 900 / 900 1050 / 1050 Balance -800 / -790 -870 / -630 240 / -630 Weight 55.8 kg 55.6 kg Intake: IV 50 / 60 60 / 60 Oral 50 / 50 120 / 360 240 / 360 Output: Urine 900 / 900 1050 / 1050 Other: Urine Color Pale Yellow Yellow Urine Appearance Clear Clear Stool Size Moderate Stool Characteristics Soft Liquid Brown Laboratory Results WBC 3.00 k/cumm (4.4-10.8) L D 10/20/18 06:25 RBC 4.35 m/cumm (4.00-5.20) 10/20/18 06:25 Hgb 12.1 g/dL (12.0-15.5) 10/20/18 06:25 Hct 36.2 % (36.0-46.0) 10/20/18 06:25 MCV 83.2 fL (80-95) 10/20/18 06:25 MCH 27.8 pg (27.0-33.0) 10/20/18 06:25 MCHC 33.4 g/dL (32.0-36.0) 10/20/18 06:25 RDW 13.7 % (11.7-14.6) 10/20/18 06:25 Plt Count 256 x1000/uL (130-400) 10/20/18 06:25 MPV 9.1 fL (8.0-11.0) 10/20/18 06:25 Immature Gran % 0.0 10/20/18 06:25 Neutrophils % 72.4 10/20/18 06:25 Lymphocytes % 23.3 10/20/18 06:25 Monocytes % 4.3 10/20/18 06:25 Eosinophils % 0.0 10/20/18 06:25 Basophils % 0.0 10/20/18 06:25 Absolute Neutrophils 2.17 k/cumm (1.2-6.7) 10/20/18 06:25 Absolute Lymphocytes 0.70 k/cumm (1.2-3.4) L 10/20/18 06:25 Absolute Monocytes 0.13 k/cumm (0.11-0.7) 10/20/18 06:25 Absolute Eosinophils 0.00 k/cumm (0.0-0.7) 10/20/18 06:25 Absolute Basophils 0.00 k/cumm (0.0-0.2) 10/20/18 06:25 PT 24.4 sec (9.3-11.0) H 10/20/18 06:25 INR 2.4 (0.9-1.1) H 10/20/18 06:25 Sodium 136 mmol/L (136-145) 10/20/18 06:25 Potassium 3.7 mmol/L (3.5-5.1) 10/20/18 06:25 Chloride 100 mmol/L (98-107) 10/20/18 06:25 Carbon Dioxide 27.9 mmol/L (21.0-32.0) 10/20/18 06:25 Anion Gap 8.1 mmol/L (3-11) 10/20/18 06:25 BUN 17 mg/dL (7-18) 10/20/18 06:25 Creatinine 0.78 mg/dL (0.55-1.02) 10/20/18 06:25 Estimated GFR/1.73 m2 >= 60.00 (mL/min/1.73m2) 10/20/18 06:25 Glucose 180 mg/dL (70-100) H 10/20/18 06:25 Calcium 8.1 mg/dL (8.5-10.1) L 10/20/18 06:25 Magnesium 1.8 mg/dL (1.8-2.4) 10/20/18 06:25 Total Bilirubin 0.8 mg/dL (0.2-1.0) 10/19/18 14:50 AST 30 U/L (15-37) 10/19/18 14:50 ALT 26 U/L (12-78) 10/19/18 14:50 Alkaline Phosphatase 58 U/L (46-116) 10/19/18 14:50 Troponin I < 0.05 ng/mL (0.00-0.06) 10/20/18 06:25 NT-Pro-B Natriuret Pep 1325 pg/mL (-299) H 10/19/18 14:52 Total Protein 6.8 g/dL (6.4-8.2) 10/19/18 14:50 Albumin 2.8 g/dL (3.4-5.0) L 10/19/18 14:50 TSH 1.08 uIU/mL (0.358-3.74) 10/19/18 14:52 Free T4 1.40 ng/dL (0.76-1.46) 10/19/18 14:52 Urine Color Yellow (Yellow) 10/19/18 15:11 Urine Clarity Clear 10/19/18 15:11 Urine pH 8.5 (5-8) H 10/19/18 15:11 Ur Specific [place] 1.015 (1.005-1.025) 10/19/18 15:11 Urine Protein Trace mg/dL (Negative) H 10/19/18 15:11 Urine Ketones Negative mg/dL (Negative) 10/19/18 15:11 Urine Blood Negative (Negative) 10/19/18 15:11 Urine Nitrite Positive (Negative) H 10/19/18 15:11 Urine Bilirubin Negative (Negative) 10/19/18 15:11 Urine Urobilinogen 0.2 EU/dL (Up TO 0.2) 10/19/18 15:11 Ur Leukocyte Esterase Small (Negative) H 10/19/18 15:11 Urine RBC 0-2 (0-2) 10/19/18 15:11 Urine WBC 20-50 HPF (0-5) 10/19/18 15:11 Ur Epithelial Cells Negative HPF (Negative) 10/19/18 15:11 Urine Crystals Negative HPF (Negative) 10/19/18 15:11 Urine Bacteria Many HPF (Negative) 06/23/19 15:11 Urine Casts Negative LPF (Negative) 10/19/18 15:11 Urine Mucus Negative (Negative) 10/19/18 15:11 Urine Other Rare transitional (Negative) 10/19/18 15:11 Ur Culture Indicated? Yes 10/19/18 15:11 Urine Glucose Negative mg/dL (Negative) 10/19/18 15:11
--- NOTE | 2018-10-20 13:54 | PT.INIE ---
Date of service: 10/20/18 Time of Service: 13:09 PT Notes Inpatient Physical Therapy Evaluation Date: 01/20/1990 Referring Doctor: Renée Dumont MD PT Orders: PT CONSULT: Eval/treat Precautions: Fall. Standard. Seizure-prone. Activity as tolerated. Patient Profile/Admitting Diagnosis: Patient is a 53-year-old female with past medical history significant for status post renal transplant x 3, on immunosuppressives, and with neurogenic bladder who presented to the ED on 10/19/2018 with chief complaints of fever, weakness, and dyspnea on exertion for the past 5 days. Patient was diagnosed with urinary tract infection, abdominal pain, new onset congestive heart failure, and hypercoagulable state. Referral was made today for functional mobility training, progressive strengthening, and balance training. PMHX: Medical History Chronic anticoagulation Chronic kidney disease Convulsions Hyperparathyroidism Neurogenic bladder Osteoporosis Peripheral neuropathy Protein S deficiency TBI (traumatic brain injury) Surgical History Colonoscopy - MAC (02/11/15) Fistula creation Renal Transplant Social History/Home Situation: Patient lives with a caregiver in a long term with a ramp to enter in [place], [place]. She is independent with all mobility ADLs using a 4 wheeled walker. She is able to manage bathing and dressing on her own but has a caregiver who takes care of medications, meals, laundry, grocery shopping, and medical transportation. Current Functional Limitations: Need for assistance in all transfer and ambulation task performance using FWW Equipment Owned/DME: FWW Subjective: Patient is agreeable to a PT consult today. She reports knee pain on bilateral knees with the left knee being more affected than the right. Sister was present during the initial part of evaluation who stated that patient is better with sneakers on. She hopes to go back home to [place] soon as she is safe to do so. She has not complained of any abdominal pain throughout this session today. Objective: General Observation: Patient seen resting in bed. Noriega catheter in place. Left knee mildly swollen. Thoracic kyphosis noted. General varum observed in standing with bilateral feet eversion/pronation.. Mental Status: Alert and oriented x4 Pain: Mild to moderate pain on bilateral knee left knee affected than the right ROM: Right Upper Extremity: Shoulder Flexion WFL. Shoulder abduction WFL. Elbow flexion WFL. Wrist flexion WFL. Functional opening and closing of hand WFL. Left Upper Extremity: Shoulder Flexion WFL. Shoulder abduction WFL. Elbow flexion WFL. Wrist flexion WFL. Functional opening and closing of hand WFL. Right Lower Extremity: Hip flexion WFL. Hip abduction WFL. Knee flexion WFL. Ankle dorsiflexion 0-5. Ankle plantarflexion WFL. Left Lower Extremity: Hip flexion WFL. Hip abduction WFL. Knee flexion WFL. Ankle dorsiflexion 0-5. Ankle plantarflexion WFL. Strength: Right Upper Extremity: Shoulder flexors 4/5. Shoulder abductors 4/5. Elbow flexors 4/5. Elbow extensors 4/5. Facility Service Manager strong. Left Upper Extremity: Shoulder flexors 4/5. Shoulder abductors 4/5. Elbow flexors 4/5. Elbow extensors 4/5. Facility Service Manager strong. Right Lower Extremity: Hip flexors 3+/5. Hip abductors 4-/5. Knee flexors 4-/5. Knee extensors 3+/5. Ankle dorsiflexors 3-/5. Ankle plantarflexors 3-/5. Left Lower Extremity: Hip flexors 3+/5. Hip abductors 4-/5. Knee flexors 4-/5. Knee extensors 3+/5. Ankle dorsiflexors 3-/5. Ankle plantarflexors 3-/5. Sensation: Intact as to pain and pressure on bilateral lower extremities. Bed Mobility/Transfers: Rolling minimal assist Supine to sit minimal assist to bilateral LE due to pain complaints Sit to supine minimal assist to bilateral LE due to pain complaints Sit to stand CGA with bilateral UEs support and using FWW Stand to sit CGA with bilateral UEs support and using FWW Bed to chair CGA with bilateral UEs support and using FWW Chair to bed CGA with bilateral UEs support and using FWW Gait: Patient was able to tolerate level surface ambulation of 60 feet with a minimal assist provided using F WW with FWB. Bilateral feet eversion with general vera observed. Thoracic scoliosis noted. increased trunk flexion seen during gait activity. Decreased gait velocity with decreased bilateral knee flexion. Balance: Static Sitting: Good Dynamic Sitting: Fair Static Standing: Fair Dynamic Standing: Fair Special Tests: Mobility Limitations Standardized Measure [facility]-PAC 6 clicks Basic Mobility Inpatient Short Form: Raw Score: 18 CMS Score: 47% deficit Informed Consent/Education: Patient instructed in purpose of PT consult and plan of care. Assessment: 53-year-old female who is status post renal transplant x3 on immunosuppressive's and with neurogenic bladder now with urinary tract infection, abdominal pain, and new onset congestive heart failure. Patient presents with clinical signs and symptoms consistent with current/admitting diagnoses that have resulted to mobility limitations, gait instability, generalized weakness, and impairment of motor control as demonstrated by the following impairment level findings: 1. Decreased strength to B LE major muscle groups 2. Impaired sitting/standing balance 3. Impaired activity tolerance 4. Limitation of joint range of motion in bilateral ankles Impairments are contributing to the following functional limitations: 1. Dependent bed mobility skills 2. Increased dependence with transfers 3. Inability to safely ambulate without assistive device and physical assistance 4. Increase completion time for mobility ADL performance 5. Increased fall risk 6. Inability to negotiate steps alone safely Patient is assessed as a [id number] moderate complexity complexity based on the following: History: 53-year-old cognitively intact female status post renal transplant x3 on immunosuppression and with neurogenic bladder with past medical history as indicated above Examination: Demonstrable impairment in strength, balance, and range of motion with underlying impairments and functional limitations as documented above Presentation:Evolving Decision Makin moderate complexity Goals: Goals X1 week 1. Supine-Sit independent 2. Sit-Supine independent 3. Sit-Stand independent 4. Stand-Sit independent 5. Bed-Chair independent 6. Chair-Bed independent 7. Independent gait on level surface with use of least restrictive device for at least 100 feet without report of pain nor dyspnea 8. Independent with home exercise program 9. Good static and dynamic standing balance/tolerance Plan of Care/Treatment Plan: 1-2x/day, 7 days/week x 1 week. Plan of care has been reviewed with the WOOD CASKET ASSEMBLER providing the service under Physical Therapy direction. Initiate Physical Therapy intervention for strengthening, bed mobility, transfers, gait, stairs, balance training, use of assistive device. DISCHARGE RECOMMENDATIONS: Patient will benefit from home health PT services in order to progress mobility level using least restrictive assistive ambulatory device/using no device, assess home safety, identify additional equipment needs, and establish a functional maintenance program that will increase ability of patient to remain at home. TREATMENT CODE/TIME: 86387 x27 minutes beginning at 13:09 PM. Thank you very much for this referral. Scarlet Jade PT, DPT, CLT [facility]
--- NOTE | 2018-10-20 13:58 | IN_ITS ---
Date of service: 10/20/18 Time of Service: 13:09 PT Notes Inpatient Physical Therapy Evaluation Date: 01/20/1990 Referring Doctor: Renée Dumont MD PT Orders: PT CONSULT: Eval/treat Precautions: Fall. Standard. Seizure-prone. Activity as tolerated. Patient Profile/Admitting Diagnosis: Patient is a 53-year-old female with past medical history significant for status post renal transplant x 3, on immunosuppressives, and with neurogenic bladder who presented to the ED on 10/19/2018 with chief complaints of fever, weakness, and dyspnea on exertion for the past 5 days. Patient was diagnosed with urinary tract infection, abdominal pain, new onset congestive heart failure, and hypercoagulable state. Referral was made today for functional mobility training, progressive strengthening, and balance training. PMHX: Medical History Chronic anticoagulation Chronic kidney disease Convulsions Hyperparathyroidism Neurogenic bladder Osteoporosis Peripheral neuropathy Protein S deficiency TBI (traumatic brain injury) Surgical History Colonoscopy - MAC (02/11/15) Fistula creation Renal Transplant Social History/Home Situation: Patient lives with a caregiver in a half-way with a ramp to enter in [place], [place]. She is independent with all mobility ADLs using a 4 wheeled walker. She is able to manage bathing and dressing on her own but has a caregiver who takes care of medications, meals, laundry, grocery shopping, and medical transportation. Current Functional Limitations: Need for assistance in all transfer and ambulation task performance using FWW Equipment Owned/DME: FWW Subjective: Patient is agreeable to a PT consult today. She reports knee pain on bilateral knees with the left knee being more affected than the right. Sister was present during the initial part of evaluation who stated that patient is better with sneakers on. She hopes to go back home to [place] soon as she is safe to do so. She has not complained of any abdominal pain throughout this session today. Objective: General Observation: Patient seen resting in bed. Noriega catheter in place. Left knee mildly swollen. Thoracic kyphosis noted. General varum observed in standing with bilateral feet eversion/pronation.. Mental Status: Alert and oriented x4 Pain: Mild to moderate pain on bilateral knee left knee affected than the right ROM: Right Upper Extremity: Shoulder Flexion WFL. Shoulder abduction WFL. Elbow flexion WFL. Wrist flexion WFL. Functional opening and closing of hand WFL. Left Upper Extremity: Shoulder Flexion WFL. Shoulder abduction WFL. Elbow flexion WFL. Wrist flexion WFL. Functional opening and closing of hand WFL. Right Lower Extremity: Hip flexion WFL. Hip abduction WFL. Knee flexion WFL. Ankle dorsiflexion 0-5. Ankle plantarflexion WFL. Left Lower Extremity: Hip flexion WFL. Hip abduction WFL. Knee flexion WFL. Ankle dorsiflexion 0-5. Ankle plantarflexion WFL. Strength: Right Upper Extremity: Shoulder flexors 4/5. Shoulder abductors 4/5. Elbow flexors 4/5. Elbow extensors 4/5. Worship Director strong. Left Upper Extremity: Shoulder flexors 4/5. Shoulder abductors 4/5. Elbow flexors 4/5. Elbow extensors 4/5. Worship Director strong. Right Lower Extremity: Hip flexors 3+/5. Hip abductors 4-/5. Knee flexors 4-/5. Knee extensors 3+/5. Ankle dorsiflexors 3-/5. Ankle plantarflexors 3-/5. Left Lower Extremity: Hip flexors 3+/5. Hip abductors 4-/5. Knee flexors 4-/5. Knee extensors 3+/5. Ankle dorsiflexors 3-/5. Ankle plantarflexors 3-/5. Sensation: Intact as to pain and pressure on bilateral lower extremities. Bed Mobility/Transfers: Rolling minimal assist Supine to sit minimal assist to bilateral LE due to pain complaints Sit to supine minimal assist to bilateral LE due to pain complaints Sit to stand CGA with bilateral UEs support and using FWW Stand to sit CGA with bilateral UEs support and using FWW Bed to chair CGA with bilateral UEs support and using FWW Chair to bed CGA with bilateral UEs support and using FWW Gait: Patient was able to tolerate level surface ambulation of 60 feet with a minimal assist provided using F WW with FWB. Bilateral feet eversion with general vera observed. Thoracic scoliosis noted. increased trunk flexion seen during gait activity. Decreased gait velocity with decreased bilateral knee flexion. Balance: Static Sitting: Good Dynamic Sitting: Fair Static Standing: Fair Dynamic Standing: Fair Special Tests: Mobility Limitations Standardized Measure [facility] AM-PAC 6 clicks Basic Mobility Inpatient Short Form: Raw Score: 18 CMS Score: 47% deficit Informed Consent/Education: Patient instructed in purpose of PT consult and plan of care. Assessment: 53-year-old female who is status post renal transplant x3 on immunos uppressive's and with neurogenic bladder now with urinary tract infection, abdominal pain, and new onset congestive heart failure. Patient presents with clinical signs and symptoms consistent with current/admitting diagnoses that have resulted to mobility limitations, gait instability, generalized weakness, and impairment of motor control as demonstrated by the following impairment level findings: 1. Decreased strength to B LE major muscle groups 2. Impaired sitting/standing balance 3. Impaired activity tolerance 4. Limitation of joint range of motion in bilateral ankles Impairments are contributing to the following functional limitations: 1. Dependent bed mobility skills 2. Increased dependence with transfers 3. Inability to safely ambulate without assistive device and physical assistance 4. Increase completion time for mobility ADL performance 5. Increased fall risk 6. Inability to negotiate steps alone safely Patient is assessed as a [id number] moderate complexity complexity based on the following: History: 53-year-old cognitively intact female status post renal transplant x3 on immunosuppression and with neurogenic bladder with past medical history as indicated above Examination: Demonstrable impairment in strength, balance, and range of motion with underlying impairments and functional limitations as documented above Presentation:Evolving Decision Makin moderate complexity Goals: Goals X1 week 1. Supine-Sit independent 2. Sit-Supine independent 3. Sit-Stand independent 4. Stand-Sit independent 5. Bed-Chair independent 6. Chair-Bed independent 7. Independent gait on level surface with use of least restrictive device for at least 100 feet without report of pain nor dyspnea 8. Independent with home exercise program 9. Good static and dynamic standing balance/tolerance Plan of Care/Treatment Plan: 1-2x/day, 7 days/week x 1 week. Plan of care has been reviewed with the HOSPITAL MORTICIAN providing the service under Physical Therapy direction. Initiate Physical Therapy intervention for strengthening, bed mobility, transfers, gait, stairs, balance training, use of assistive device. DISCHARGE RECOMMENDATIONS: Patient will benefit from home health PT services in order to progress mobility level using least restrictive assistive ambulatory device/using no device, assess home safety, identify additional equipment needs, and establish a functional maintenance program that will increase ability of patient to remain at home. TREATMENT CODE/TIME: 22338 x27 minutes beginning at 13:09 PM. Thank you very much for this referral. Scarlet Jade PT, DPT, CLT [facility]
[2018-10-20] MEDS: Potassium Chloride 20 MEQ TABCR PO ×2 (14:04→19:33)
[2018-10-20] MEDS: Magnesium Oxide 400 MG TAB PO (14:04)
[2018-10-20] MEDS: cefTRIAXone 1 GM/50 ML BAG IVPB (16:50)
[2018-10-20] MEDS: Nystatin POWDER 60 GM JAR TP (19:32)
[2018-10-20] MEDS: Warfarin 5 MG TAB PO (19:34)
--- NOTE | 2018-10-20 19:50 | PCNE_ITS ---
Date of service: 10/20/18 Time of Service: 19:50 History of Present Illness Narrative: I am meeting with Nilsa for the first time. Her sisters are in the room. There are concerns about goals of care. I was asked to meet with them to further understand Nilsa and what she wants. Nilsa will oscillate between saying that she has a good life and grimacing in pain with minimal movement. She often states she does not mean to complain. She looks to her Sister Nicol to explain different events. Stacy states that she came to the hospital because of a urinary tract infection and abdominal pain. Her sister adds that this time was complicated by congestive heart failure. Nicol reports ongoing difficulties in watching her sister Nilsa be in pain discomfort and go through procedures while at the same time taking a downhill trajectory with her general health. She would like more attention paid to Stacy's quality of life rather than constantly focusing on saving her kidney. Big dilemma right now is that Nilsa has severe pain and has not been able to undergo interventions for her hips because of her chronic UTIs. She is very due to [facility] specialists including her transplant specialist Dr. Mina, her urologist Dr. Hills, and Ortho. Ortho does not want to do any interventions because of her UTIs. She requires self cathing which is actually done by her caregivers in the home she lives in cathing is very difficult because of her hip pain and her transplant specialist requirement that she have less than 300 cc in her bladder. Unfortunately most of the time nighttime is when her bladder fills. Hence she needs to be woken up frequently to be Which is a very painful procedure due to her hip pain We also briefly talked about CODE STATUS. Nilsa is a full code. She is also got a court appointed guardian so any change in her CODE STATUS would need to go through probate court. Nilsa really does not understand what CODE STATUS means her Sister Nicol does have full understanding of this and states that she saw her mother go through extended intubation which resulted in longer suffering not better quality of life. Nicol is concerned that Stacy is spiraling down and that some of these decisions such as CODE STATUS may need to be reassessed so that Nicol does not go through a long painful dying process Consults Consult date: 10/20/18 Requesting physician: Renée Dumont Assessment and Plan (1) New onset of congestive heart failure: Current visit: Yes Status: Acute Diastolic dysfunction (2) Abdominal pain: Current visit: Yes Status: Acute (3) UTI (urinary tract infection): Current visit: Yes Status: Acute frequent requires self catherization which is both inconvient (mostly during her sleep) and painful due to her chronic hip pain This is a major source of her angst due to interruption in the quality of her life (4) Seizure disorder: Current visit: No Status: Chronic (5) Neurogenic bladder: Current visit: No Status: Acute (6) S/P kidney transplant: Current visit: No Status: Acute (7) Osteoarthritis of left hip: Current visit: No Status: Acute Qualifiers: Osteoarthritis type: primary Qualified Code(s): M16.12 - Unilateral primary osteoarthritis, left hip (8) Full code status: Current visit: Yes Status: Acute Discussion with sisters and Tacos. I did bring in a COLST and we briefly reviewed. Candie her guardian understands that any change from FULL Code requires going to Probate Court. Tacso remains FULL Code, but the discussion havs started about quality of life and what needs to be addressed. I did speak with Hospital Team. They will review with Tacos and determine a good plan for pain control keeping in mind her transplant status I need to further review her copious [facility] and [facility] records to determine next steps. I will meet with Tacos in 2 days. I am very impressed with Tacos's sisters especially Candie who continues to be Tacos's advocate and allows her to have as much autonomy as possible. This document was created by [employer] voice recognition and may contain grammatical and translation errors. I have spent more than 50% of time in counseling with this patient. Review of Systems Constitutional Reports fatigue and Reports weakness Eyes Reports system reviewed and no additional complaints, except as docu ENT Reports system reviewed and no additional complaints, except as docu Cardiovascular Reports dyspnea Comments: Recently diagnosed congestive heart failure Respiratory Reports dyspnea Gastrointestinal Reports system reviewed and no additional complaints, except as docu Genitourinary Comments: urinary retention with need for frequent catherization; goal is to have less than 300cc residual; frequent repeated nighttime catherization Musculoskeletal Reports myalgias, Reports deformity, Reports arthralgias and Reports limited range of motion Comments: hip pain with audible crepitus and pain Neurologic Reports confusion, Reports memory loss and Reports weakness Comments: history of TBI Lives in a women's Home with / caretakers Psychiatric Reports confusion, Reports difficulty concentrating and Reports memory loss Endocrine Reports fatigue [facility] Medical History Chronic anticoagulation Chronic kidney disease Convulsions Hyperparathyroidism Neurogenic bladder Osteoporosis Peripheral neuropathy Protein S deficiency TBI (traumatic brain injury) Surgical History Colonoscopy - MAC (02/11/15) Fistula creation Renal Transplant Social History Smoking/Tobacco Use Status: Never Alcohol Intake: never Drug use: Never Substance use type: does not use Do you feel safe at home: Yes Do you feel safe in your relationship?: Yes Additional Social history: Lives in senior living in [place]. Has [facility] care there as well. Exam Narrative Exam Narrative: Patient is lying in bed. Sisters are surrounding her. She smiles and often says that things are good. Her life is good. When she does any movement of her lower body she grimaces she states that she is in pain often. Her sister reported her swearing because of the pain. This is very unusual for Nilsa. Simple movements she is to shift her weight on her buttocks causes an audible crepitus in her hips and more grimacing Const General: cooperative and frail appearing Nutritional Appearance: average body habitus Orientation: oriented x3 Limitations: behavioral limitations and other limitations (TBI) HENTX Head: other (healed scars on face) Ears: hearing grossly normal bilaterally and external ears normal Teeth and gingiva: abnormal tooth or associated gingiva (? bridge) Eyes Alignment and Position: alignment normal Eyelids: eyelids normal Conjunctivae: conjunctivae normal Sclera: sclerae normal Resp Effort & Inspection: able to speak in complete sentences Psych Appearance: other (hospital gown) Mental Status: other (switches from smiling to grimaces) Speech and Movement: speech clear and other (in bed) Mood: other (switches from smiling to grimaces) Affect: labile affect and No anxious affect Attitude: cooperative Thought Process: other Thought Content: other Insight: poor Judgment: poor Results Last Vital Signs Temp 97.9 F 10/20/18 15:50 Pulse 69 10/20/18 15:50 Resp 17 10/20/18 15:50 BP 99/43 L 10/20/18 15:50 Pulse Ox 95 10/20/18 15:50 Labs : 10/22/18 06:45 10/22/18 06:45 Laboratory Results - last 24 hr 10/19/18 10/19/18 10/20/18 14:52 22:10 06:25 WBC RBC Hgb Hct MCV MCH MCHC RDW Plt Count MPV Immature Gran % Neutrophils % Lymphocytes % Monocytes % Eosinophils % Basophils % Absolute Neutrophils Absolute Lymphocytes Absolute Monocytes Absolute Eosinophils Absolute Basophils PT INR Sodium 136 Potassium 3.7 Chloride 100 Carbon Dioxide 27.9 Anion Gap 8.1 BUN 17 Creatinine 0.78 Estimated GFR/1.73 m2 >= 60.00 Glucose 180 H Calcium 8.1 L Magnesium 1.8 Troponin I < 0.05 < 0.05 TSH 1.08 Free T4 1.40 10/20/18 10/20/18 06:25 06:25 WBC 3.00 L D RBC 4.35 Hgb 12.1 Hct 36.2 MCV 83.2 MCH 27.8 MCHC 33.4 RDW 13.7 Plt Count 256 MPV 9.1 Immature Gran % 0.0 Neutrophils % 72.4 Lymphocytes % 23.3 Monocytes % 4.3 Eosinophils % 0.0 Basophils % 0.0 Absolute Neutrophils 2.17 Absolute Lymphocytes 0.70 L Absolute Monocytes 0.13 Absolute Eosinophils 0.00 Absolute Basophils 0.00 PT 24.4 H INR 2.4 H Sodium Potassium Chloride Carbon Dioxide Anion Gap BUN Creatinine Estimated GFR/1.73 m2 Glucose Calcium Magnesium Troponin I TSH Free T4 Laboratory Tests 10/19/18 10/19/18 10/22/18 15:11 18:45 06:45 Sodium 130 L BUN 20 H Magnesium 1.6 L Urine WBC 20-50 Ur Epithelial Cells Negative Urine Bacteria Many Tacrolimus 3.7 Patient Name: TACOS DE JESUS #: [id number]: MS Ordering Provider: Renée Dumont M.D. : ADM IN Primary Care Provider: Nader Dobson M.D.Date of Exam: 10/20/18Sex: F : 1965Age: 53 Exam(s) a US:US echocardiogram *[facility]* *[facility]* [address] [place] [address] Date of study: 10/20/2018 Transthoracic Echocardiography M-mode, complete 2D, complete spectral Doppler, and color Doppler *STUDY CONCLUSIONS* Summary: 1. Left ventricle: The cavity size was mildly dilated. Systolic function was hyperdynamic. The estimated ejection fraction was 65-70%. EF > 60%, ESD > 40 mm. Findings consistent with diastolic dysfunction. Doppler parameters are consistent with high ventricular filling pressure. 2. Aortic valve: There was mild regurgitation. 3. Mitral valve: Mildly calcified annulus. Moderately thickened, myxomatous leaflets anterior and posterior. Mild prolapse, involving the anterior leaflet and the posterior leaflet. There was moderate regurgitation directed eccentrically. 4. Left atrium: The atrium was moderately dilated. 5. Right ventricle: The cavity size was normal. Wall thickness was normal. The moderator band was in a normal position. Systolic function was normal. 6. Atrial septum: No defect or patent foramen ovale was identified. 7. Pulmonary arteries: Pulmonary systolic pressure was in the range of 15mm Hg to 25mm Hg. 8. Inferior vena cava: The vessel was patent and normal in size. The respirophasic diameter changes were in the normal range (greater than or equal to 50%), consistent with normal central venous pressure. Patient Name: TACOS DE JESUS #: [id number]: MAKI Ordering Provider: Odilon Obando M.D. : REG I Primary Care Provider: Nader Dobson M.D.Date of Exam: 05/21/18Sex: F Admission Date: 05/21/18 : 1965 Age: 52 Exam(s) a RAD:XR hip LT 1V SYMPTOM/DIAGNOSIS: PRE LT UNA LEFT HIP: Severe DJD is demonstrated. There is joint space narrowing, sclerosis and subchondral cyst formation. There is no evidence of a superimposed fracture or dislocation. There are multiple vascular clips in the left hemipelvis. The findings suggest a prior lymph node dissection. SUMMARY: Severe DJD left hip.
[2018-10-21] VITALS (11 sets, daily range): BP systolic 96–131; BP diastolic 48–71; PULSE 62–80; RESP 16–19; TEMP 35.6–36.7; O2SAT 95–99
[2018-10-21] MEDS: Hydrocortisone SOD SUC. 100 MG VIAL 50 MG IVP ×2 (03:34→11:39)
[2018-10-21] MEDS: Normal Saline Flush 10 ML SYR IVP ×3 (03:35→15:56)
[2018-10-21] MEDS: Tacrolimus 0.5 MG CAP 2 MG PO ×2 (09:03→19:34)
[2018-10-21] MEDS: Potassium Chloride 20 MEQ TABCR PO ×2 (09:04→19:29)
[2018-10-21] MEDS: Citalopram 20 MG TAB PO (09:04)
[2018-10-21] MEDS: Esomeprazole 40 MG CAPCR PO (09:04)
[2018-10-21] MEDS: Magnesium Oxide 400 MG TAB PO (09:04)
[2018-10-21] MEDS: levETIRAcetam 500 MG TAB 1500 MG PO ×2 (09:05→19:28)
[2018-10-21] MEDS: predniSONE 5 MG TAB PO (09:05)
[2018-10-21] MEDS: Hydrocortisone 1% CR 30 GM TUBE TP (09:06)
[2018-10-21] MEDS: Acetaminophen 325 MG TAB 650 MG PO ×3 (09:07→21:09)
[2018-10-21] MEDS: Nystatin POWDER 60 GM JAR TP ×2 (09:08→19:36)
--- NOTE | 2018-10-21 09:50 | OT.INTREAT ---
Date of service: 10/21/18 Time of Service: 09:10 Occupational Therapy Notes Occupational Therapy Inpatient Treatment Note Date: 10/21/18 PRECAUTIONS: Fall, Standard SUBJECTIVE: Pt was sitting in chair when OT arrived. She was agreeable to OT session reporting that she would like to get washed up. OBJECTIVE: PAIN:no c/o pain FUNCTIONAL MOBILITY Sit-stand: Mod (A) x2 Stand-sit: Mod (A) x2 BATHING: Sitting in chair with max (A) set up Upper Body: (I) with vc and step by step instructions Lower Body: Able to (I) Wash to knees, max (A) lower legs. DRESSING: Seated position Upper Extremity: Min (A) with [facility] gown Lower Extremity: Max (A) don and doff (B) socks GROOMING: In seated position (I) with brushing hair with decreased functional activity tolerance. ASSESSMENT/PLAN: Pt tolerated skilled OT session well. She was extremely emotional but was able to perform with increased vc throughout. OT will continue to progress pts (I) in ADL routines. TREATMENT CODES/TIME: [id number], 35 minutes (09:10) [facility]
[2018-10-21 09:52] LABS: Abs Immature Grans 0.01 k/cumm (0.0-0.09); Absolute Basophil Count 0.01 k/cumm (0.0-0.2); Absolute Eosinophil Count 0.01 k/cumm (0.0-0.7); Absolute Lymphocyte Count 0.66 k/cumm (1.2-3.4); Absolute Monocyte Count 0.23 k/cumm (0.11-0.7); Absolute Neutrophil Count 5.22 k/cumm (1.2-6.7); Basophils % 0.2; Eosinophils % 0.2; HCT 38.3 % (36.0-46.0); HGB 12.5 g/dL (12.0-15.5); Immature Grans % 0.2; Lymphocytes % 10.7; Mean Corp. HGB Concentration 32.6 g/dL (32.0-36.0); Mean Corpuscular Hemoglobin 27.3 pg (27.0-33.0); Mean Corpuscular Volume 83.6 fL (80-95); Monocytes % 3.7; Platelet Count 314 x1000/uL (130-400); RBC 4.58 m/cumm (4.00-5.20); RBC Distribution Width 13.8 % (11.7-14.6); White Blood Cell Count 6.14 k/cumm (4.4-10.8)
--- NOTE | 2018-10-21 09:55 | OTTR_ITS ---
Date of service: 10/21/18 Time of Service: 09:10 Occupational Therapy Notes Occupational Therapy Inpatient Treatment Note Date: 10/21/18 PRECAUTIONS: Fall, Standard SUBJECTIVE: Pt was sitting in chair when OT arrived. She was agreeable to OT session reporting that she would like to get washed up. OBJECTIVE: PAIN:no c/o pain FUNCTIONAL MOBILITY Sit-stand: Mod (A) x2 Stand-sit: Mod (A) x2 BATHING: Sitting in chair with max (A) set up Upper Body: (I) with vc and step by step instructions Lower Body: Able to (I) Wash to knees, max (A) lower legs. DRESSING: Seated position Upper Extremity: Min (A) with [facility] gown Lower Extremity: Max (A) don and doff (B) socks GROOMING: In seated position (I) with brushing hair with decreased functional activity tolerance. ASSESSMENT/PLAN: Pt tolerated skilled OT session well. She was extremely emotional but was able to perform with increased vc throughout. OT will continue to progress pts (I) in ADL routines. TREATMENT CODES/TIME: [id number], 35 minutes (09:10) [facility]
[2018-10-21 10:03] LABS: Anion Gap 11.8 mmol/L (3-11); BUN 17 mg/dL (7-18); CO2 25.2 mmol/L (21.0-32.0); CREATININE 0.68 mg/dL (0.55-1.02); Calcium 8.4 mg/dL (8.5-10.1); Chloride 98 mmol/L (98-107); Glucose 225 mg/dL (70-100); Magnesium 1.8 mg/dL (1.8-2.4); Potassium 3.7 mmol/L (3.5-5.1); Sodium 135 mmol/L (136-145)
[2018-10-21 10:24] LABS: Prothrombin Time 48.4 sec (9.3-11.0)
[2018-10-21 11:08] LABS: INR 4.8 (0.9-1.1)
[2018-10-21] MEDS: Furosemide 20 MG/2 ML VIAL IVP ×3 (11:14→15:48)
--- NOTE | 2018-10-21 12:15 | PT.INTREAT ---
Date of service: 10/21/18 Time of Service: 12:15 PT Notes Inpatient Physical Therapy Treatment Note [facility] Date: 10/21/18 PRECAUTIONS: Fall SUBJECTIVE: Darlene states that she has had a busy morning, although is agreeable to participating in PT. OBJECTIVE: PAIN: Patient c/o B knee pain at rest and with transfers BED MOBILITY/TRANSFERS Supine-sit: SBA with HOB at 40 degrees Sit-supine: Mod A of B LEs with HOB flat Sit-stand: CGA Stand-sit: CGA Chair-bed: CGA GAIT Assistive Device: FWW Weight bearing: Full Assist: CGA Distance: 10' in a.m.; 80' in p.m. Deviation: B knee pain, B orthopedic shoes, slow pace THEREX: Patient completed a LE and UE strengthening program, in a seated position, as per flow sheet. ASSESSMENT: Patient tolerated session with c/o B knee pain while at rest and with transfers. She was able to tolerate a progression in gait distance with FWW and CGA, as well as the addition of a ther ex program today. She would benefit from continued gait and transfer training, as well as strengthening to return to baseline level of function. PLAN: Continue with PT's POC TREATMENT CODE/TIME: Session 1: 25 minutes; [id number], [id number] Session 2: 20 minutes; [id number]
--- NOTE | 2018-10-21 13:24 | PDOC.CMPRO ---
- If Service Date Differs Date of service: 10/21/18 Time of Service: 13:24 Care Management Progress Note S/O: CM met with Darlene in the room she reports she is doing okay she was able to meet with palliative care with her sister yesterday. She does ask when will she be able to return to [facility]. Yoselin continues to be acute, she is receiving IV antibiotics and symptom management. CM to continue to provide support and monitor for discharge needs and disposition. A: Darlene is a 53 year old female admitted with UTI and new onset of CHF, with a history of immunosurpresive therapy related to kidney transplant. P: Darlene remains acute she will be discharged home when medically ready per provider. [facility] will [facility] and be transported home via family at time of discharge. Darlene will need to follow up with pcp and palliative as directed after discharge.
--- NOTE | 2018-10-21 13:29 | CMPROGNOTE_ITS ---
- If Service Date Differs Date of service: 10/21/18 Time of Service: 13:24 Care Management Progress Note S/O: CM met with Darlene in the room she reports she is doing okay she was able to meet with palliative care with her sister yesterday. She does ask when will she be able to return to [facility]. Yoselin continues to be acute, she is receiving IV antibiotics and symptom management. CM to continue to provide support and monitor for discharge needs and disposition. A: Darlene is a 53 year old female admitted with UTI and new onset of CHF, with a history of immunosurpresive therapy related to kidney transplant. P: Darlene remains acute she will be discharged home when medically ready per provider. She will resume services through [facility] and be transported home via family at time of discharge. Darlene will need to follow up with pcp and palliative as directed after discharge.
[2018-10-21 13:40] LABS: Tacrolimus 3.7 ng/ml
--- NOTE | 2018-10-21 14:38 | PGE_ITS ---
Date of Service Date of service: 10/21/18 Time of Service: 14:38 Assessment and Plan (1) UTI (urinary tract infection): Current visit: Yes Status: Acute Both current culture and culture from 10/14/18 growing E. Coli, sensitive to cephalosporins and fluoroquinolones. Has been on IV Ceftriaxone, x2 days. Transition to oral antibiotics today with cipro for complicated UTI. Blood cultures with no growth at 24 hours. Continue to monitor cultures. Continue kidd catheter. (2) Abdominal pain: Current visit: Yes Status: Acute Possibly mild ileus noted on abdominal x-ray. She had a bowel movement again today. She is tolerating her diet. Encourage frequent ambulation. Continue to monitor. (3) New onset of congestive heart failure: Current visit: Yes Status: Acute Echocardiogram shows LVEF 65-70% with findings consistent with diastolic dysfunction and moderate mitral regurgitation. She is diuresing well with BID IV lasix, still appears mildly fluid overloaded by physical exam, weight appears unchanged, has negative fluid balance. Continue IV lasix with additional dose today, continue to follow intake and output, continue with kidd catheter, continue to follow daily weight. (4) Neurogenic bladder: Current visit: No Status: Acute Continue kidd catheter while hospitalized for UTI and diuresing with IV lasix. (5) S/P kidney transplant: Current visit: No Status: Acute Continue mycophenolate and prograf, prograf level pending. has been on stress dose steroids as she is also on prednisone at baseline, continue to taper steroids, transition to oral today. (6) Hypercoagulable state, primary: Current visit: No Status: Acute INR supratherapeutic at 4.8 today in the setting of antibiotic treatment. Hold Coumadin, continue daily INRs. (7) Seizure disorder: Current visit: No Status: Chronic Continue keppra. (8) Osteoarthritis of left hip: Current visit: No Status: Acute With hip pain and plans for hip replacement. Pain control options discussed with [place] [facility] [place] agrees with low dose tramadol, tylenol and lidoderm patch. Continue PT. Qualifiers: Osteoarthritis type: primary Qualified Code(s): M16.12 - Unilateral primary osteoarthritis, left hip (9) DVT prophylaxis: Current visit: No Status: Acute Surpratherapeutic INR, hold coumadin. (10) Discharge planning issues: Current visit: No Status: Acute She is a FULL CODE. [facility] resides [facility] [place], she will return to the home when she is ready for discharge. She has been seen by Palliative care. Continue PT. This case was discussed with Dr. Ortega who is in agreement. Subjective Interval history since last seen: Darlene denies shortness of breath today, she occasionally feels wheezy, she denies coughing. She denies chest pain, pressure, palpitations. She is eating and drinking, she denies abdominal pain, nausea or vomiting, she moved her bowels today. She reports large amount of urinary output from her kidd catheter. She continues to report hip pain with ambulation. She was seen by Palliative last evening, Dr. Chamorro was concerned about her pain. Given her history of renal transplant with rejection, this was discussed with Dr. Mina, [facility] [place], who agrees with initiation of low dose tramadol with APAP and lidoderm patch for pain control. Exam Narrative Exam Narrative: General: Very pleasant middle-aged female, mildly anxious, sister/guardian present, A&Ox3. Sitting up in the chair. Neurological: A&Ox3, no obvious focal deficits Psychiatric: mildly anxious, answers questions appropriately, speech is clear. Skin: intact HEENT: Atraumatic, normocephalic, EOMI, moist mucous membranes. Neck: supple, no JVD Cardiovascular: regular rate and rhythm, no murmur appreciated. Lungs: respirations even and unlabored, rales to left base, no wheezing. Speaks in complete sentences without shortness of breath. : kidd draining clear yellow urine. Gastrointestinal: + bowel sounds, mildly tender on palpation of left abdomen, soft, nondistended. Extremities: LUE with AV fistula, BLE with +1 nonpitting edema, no clubbing/cyanosis, pedal pulses palpable bilaterally. Objective Objective Clinical Data: Abnormal lab results 10/21/18 10/21/18 10/21/18 Range/Units 09:40 09:40 09:40 Absolute Lymphocytes 0.66 L (1.2-3.4) k/cumm PT 48.4 H D (9.3-11.0) sec INR 4.8 H* D (0.9-1.1) Sodium 135 L (136-145) mmol/L Anion Gap 11.8 H (3-11) mmol/L Glucose 225 H (70-100) mg/dL Calcium 8.4 L (8.5-10.1) mg/dL Vital Signs Temperature 35.6 C L 10/21/18 11:13 Temperature Source Tympanic 10/21/18 11:13 Pulse 67 10/21/18 11:13 Pulse Rhythm Regular 10/21/18 08:30 Respiratory Rate 18 10/21/18 11:13 Respiratory Effort Non-Labored 10/21/18 08:30 Respiratory Depth Normal 10/21/18 08:30 Respiratory Pattern Normal 10/21/18 08:30 Blood Pressure 96/48 L 10/21/18 13:48 Blood Pressure Position Sitting 10/19/18 13:47 Pulse Oximetry 99 10/21/18 11:13 Oxygen Delivery Method Room Air 10/21/18 11:13 Oxygen Flow Rate 0 10/21/18 11:13 Pain Level 8 10/21/18 13:54 Comment 10/20/18 07:25 Intake & Output 10/20/18 10/21/18 10/21/18 23:59 11:59 23:59 Intake Total 820 / 1120 360 / 600 240 / 600 Output Total 600 / 1650 300 / 1150 850 / 1150 Balance 220 / -530 60 / -550 -610 / -550 Weight 55.9 kg Intake: IV 100 / 160 10 / 10 Oral 720 / 960 350 / 590 240 / 590 Output: Urine 600 / 1650 300 / 1150 850 / 1150 Other: Urine Color Light Mirella Dark Mirella Yellow Urine Appearance Clear Clear Stool Size Small Moderate Stool Characteristics Hard Soft Liquid Brown Laboratory Results WBC 6.14 k/cumm (4.4-10.8) D 10/21/18 09:40 RBC 4.58 m/cumm (4.00-5.20) 10/21/18 09:40 Hgb 12.5 g/dL (12.0-15.5) 10/21/18 09:40 Hct 38.3 % (36.0-46.0) 10/21/18 09:40 MCV 83.6 fL (80-95) 10/21/18 09:40 MCH 27.3 pg (27.0-33.0) 10/21/18 09:40 MCHC 32.6 g/dL (32.0-36.0) 10/21/18 09:40 RDW 13.8 % (11.7-14.6) 10/21/18 09:40 Plt Count 314 x1000/uL (130-400) 10/21/18 09:40 MPV 9.0 fL (8.0-11.0) 10/21/18 09:40 Immature Gran % 0.2 10/21/18 09:40 Neutrophils % 85.0 10/21/18 09:40 Lymphocytes % 10.7 10/21/18 09:40 Monocytes % 3.7 10/21/18 09:40 Eosinophils % 0.2 10/21/18 09:40 Basophils % 0.2 10/21/18 09:40 Absolute Neutrophils 5.22 k/cumm (1.2-6.7) 10/21/18 09:40 Absolute Lymphocytes 0.66 k/cumm (1.2-3.4) L 10/21/18 09:40 Absolute Monocytes 0.23 k/cumm (0.11-0.7) 10/21/18 09:40 Absolute Eosinophils 0.01 k/cumm (0.0-0.7) 10/21/18 09:40 Absolute Basophils 0.01 k/cumm (0.0-0.2) 10/21/18 09:40 PT 48.4 sec (9.3-11.0) H D 10/21/18 09:40 INR 4.8 (0.9-1.1) H* D 10/21/18 09:40 Sodium 135 mmol/L (136-145) L 10/21/18 09:40 Potassium 3.7 mmol/L (3.5-5.1) 10/21/18 09:40 Chloride 98 mmol/L (98-107) 10/21/18 09:40 Carbon Dioxide 25.2 mmol/L (21.0-32.0) 10/21/18 09:40 Anion Gap 11.8 mmol/L (3-11) H 10/21/18 09:40 BUN 17 mg/dL (7-18) 10/21/18 09:40 Creatinine 0.68 mg/dL (0.55-1.02) 10/21/18 09:40 Estimated GFR/1.73 m2 >= 60.00 (mL/min/1.73m2) 10/21/18 09:40 Glucose 225 mg/dL (70-100) H 10/21/18 09:40 Calcium 8.4 mg/dL (8.5-10.1) L 10/21/18 09:40 Magnesium 1.8 mg/dL (1.8-2.4) 10/21/18 09:40 Total Bilirubin 0.8 mg/dL (0.2-1.0) 10/19/18 14:50 AST 30 U/L (15-37) 10/19/18 14:50 ALT 26 U/L (12-78) 10/19/18 14:50 Alkaline Phosphatase 58 U/L (46-116) 10/19/18 14:50 Troponin I < 0.05 ng/mL (0.00-0.06) 10/20/18 06:25 NT-Pro-B Natriuret Pep 1325 pg/mL (-299) H 10/19/18 14:52 Total Protein 6.8 g/dL (6.4-8.2) 10/19/18 14:50 Albumin 2.8 g/dL (3.4-5.0) L 10/19/18 14:50 TSH 1.08 uIU/mL (0.358-3.74) 10/19/18 14:52 Free T4 1.40 ng/dL (0.76-1.46) 10/19/18 14:52 Urine Color Yellow (Yellow) 10/19/18 15:11 Urine Clarity Clear 10/19/18 15:11 Urine pH 8.5 (5-8) H 10/19/18 15:11 Ur Specific Clare 1.015 (1.005-1.025) 10/19/18 15:11 Urine Protein Trace mg/dL (Negative) H 10/19/18 15:11 Urine Ketones Negative mg/dL (Negative) 10/19/18 15:11 Urine Blood Negative (Negative) 10/19/18 15:11 Urine Nitrite Positive (Negative) H 10/19/18 15:11 Urine Bilirubin Negative (Negative) 10/19/18 15:11 Urine Urobilinogen 0.2 EU/dL (Up TO 0.2) 10/19/18 15:11 Ur Leukocyte Esterase Small (Negative) H 10/19/18 15:11 Urine RBC 0-2 (0-2) 10/19/18 15:11 Urine WBC 20-50 HPF (0-5) 10/19/18 15:11 Ur Epithelial Cells Negative HPF (Negative) 10/19/18 15:11 Urine Crystals Negative HPF (Negative) 10/19/18 15:11 Urine Bacteria Many HPF (Negative) 10/19/18 15:11 Urine Casts Negative LPF (Negative) 10/19/18 15:11 Urine Mucus Negative (Negative) 10/19/18 15:11 Urine Other Rare transitional (Negative) 10/19/18 15:11 Ur Culture Indicated? Yes 10/19/18 15:11 Urine Glucose Negative mg/dL (Negative) 10/19/18 15:11
[2018-10-21] MEDS: cefTRIAXone 1 GM/50 ML BAG IVPB (15:48)
--- NOTE | 2018-10-21 16:05 | CHAPLAIN ---
Darlene remembered me from her previous admissions. She asked if she could have some yarn to roll into balls. She also asked for a prayer shawl so I got her yarn and a shawl which she really seemed to appreciate. Then she wanted to get back into bed.
[2018-10-21] MEDS: Calcium Carbonate *TUMS* 500 MG CHEW PO (17:24)
[2018-10-21] MEDS: Lidocaine 5% Patch 1 PATCH TP (17:53)
[2018-10-21] MEDS: Docusate Sodium 100 MG CAP PO (19:29)
[2018-10-21] MEDS: predniSONE 10 MG TAB PO (19:29)
[2018-10-21] MEDS: Ciprofloxacin 500 MG TAB PO (19:29)
[2018-10-22] VITALS (10 sets, daily range): BP systolic 97–124; BP diastolic 57–71; PULSE 61–82; RESP 16–18; TEMP 35.9–36.7; O2SAT 96–98
[2018-10-22] MEDS: traMADol 50 MG TAB PO ×2 (05:13→21:59)
[2018-10-22] MEDS: Patch Removal 1 EACH TP (05:18)
[2018-10-22 07:02] LABS: Abs Immature Grans 0.03 k/cumm (0.0-0.09); Absolute Basophil Count 0.01 k/cumm (0.0-0.2); Absolute Eosinophil Count 0.03 k/cumm (0.0-0.7); Absolute Lymphocyte Count 1.09 k/cumm (1.2-3.4); Absolute Monocyte Count 0.57 k/cumm (0.11-0.7); Absolute Neutrophil Count 4.42 k/cumm (1.2-6.7); Basophils % 0.2; Eosinophils % 0.5; HCT 36.3 % (36.0-46.0); HGB 11.9 g/dL (12.0-15.5); Immature Grans % 0.5; Lymphocytes % 17.7; Mean Corp. HGB Concentration 32.8 g/dL (32.0-36.0); Mean Corpuscular Hemoglobin 27.5 pg (27.0-33.0); Mean Corpuscular Volume 83.8 fL (80-95); Mean Platelet Volume 8.9 fL (8.0-11.0); Monocytes % 9.3; Neutrophils % 71.8; Platelet Count 318 x1000/uL (130-400); RBC 4.33 m/cumm (4.00-5.20); RBC Distribution Width 13.9 % (11.7-14.6); White Blood Cell Count 6.15 k/cumm (4.4-10.8)
[2018-10-22 07:18] LABS: Anion Gap 3.4 mmol/L (3-11); BUN 20 mg/dL (7-18); CO2 28.6 mmol/L (21.0-32.0); CREATININE 0.77 mg/dL (0.55-1.02); Chloride 98 mmol/L (98-107); Glucose 113 mg/dL (70-100); Magnesium 1.6 mg/dL (1.8-2.4); Potassium 4.1 mmol/L (3.5-5.1); Sodium 130 mmol/L (136-145)
[2018-10-22 07:19] LABS: Prothrombin Time 57.3 sec (9.3-11.0)
[2018-10-22 07:23] LABS: INR 5.6 (0.9-1.1)
[2018-10-22] MEDS: Tacrolimus 0.5 MG CAP 2 MG PO ×2 (07:48→19:46)
[2018-10-22] MEDS: Acetaminophen 325 MG TAB 650 MG PO ×2 (07:49→15:57)
[2018-10-22] MEDS: Furosemide 20 MG/2 ML VIAL IVP ×2 (07:50→15:57)
[2018-10-22] MEDS: Esomeprazole 40 MG CAPCR PO (09:13)
[2018-10-22] MEDS: levETIRAcetam 500 MG TAB 1500 MG PO ×2 (09:13→19:46)
[2018-10-22] MEDS: Potassium Chloride 20 MEQ TABCR PO ×2 (09:13→19:46)
[2018-10-22] MEDS: predniSONE 10 MG TAB PO (09:14)
[2018-10-22] MEDS: Ciprofloxacin 500 MG TAB PO (09:14)
[2018-10-22] MEDS: Citalopram 20 MG TAB PO (09:14)
[2018-10-22] MEDS: Docusate Sodium 100 MG CAP PO ×2 (09:14→19:46)
[2018-10-22] MEDS: Nystatin POWDER 60 GM JAR TP ×2 (09:15→19:47)
--- NOTE | 2018-10-22 10:01 | OT.INTREAT ---
Date of service: 10/22/18 Time of Service: 08:50 Occupational Therapy Notes Occupational Therapy Inpatient Treatment Note Date: 10/22/18 PRECAUTIONS: Fall, Standard SUBJECTIVE: Pt was sitting in chair when OT arrived with her sister at her side. Pt states that she would like to get washed up and is agreeable to OT session. OBJECTIVE: PAIN:c/o of leg cramps in the standing position FUNCTIONAL MOBILITY performed with Physical Therapy BATHING: Standing at sink with FWW Upper Body: Mod (A) UE with increased vc throughout Lower Body: NT DRESSING: Standing at sink with FWW and Mod vc Upper Extremity: Mod (A) [facility] gown Lower Extremity: Sitting in chair max (A) don and doffing (B) socks and shoes GROOMING: Sitting in chair with max (A) set up, (I) with brushing teeth. ASSESSMENT/PLAN: Pt has c/o leg cramps at times throughout OT session she was able to perform ADLs standing at the sink. She functionally uses her (R) UE for bathing routine and tends to not use her (L). She is able to demonstrate (I) with ADLS with vc provided. OT will continue to work with pt to progress functional (I) with ADL routines. TREATMENT CODES/TIME: [id number], 25 minutes (08:50) Nichole Garertt OTR/[facility]
--- NOTE | 2018-10-22 10:04 | OTTR_ITS ---
Date of service: 10/22/18 Time of Service: 08:50 Occupational Therapy Notes Occupational Therapy Inpatient Treatment Note Date: 10/22/18 PRECAUTIONS: Fall, Standard SUBJECTIVE: Pt was sitting in chair when OT arrived with her sister at her side. Pt states that she would like to get washed up and is agreeable to OT session. OBJECTIVE: PAIN:c/o of leg cramps in the standing position FUNCTIONAL MOBILITY performed with Physical Therapy BATHING: Standing at sink with FWW Upper Body: Mod (A) UE with increased vc throughout Lower Body: NT DRESSING: Standing at sink with FWW and Mod vc Upper Extremity: Mod (A) [facility] gown Lower Extremity: Sitting in chair max (A) don and doffing (B) socks and shoes GROOMING: Sitting in chair with max (A) set up, (I) with brushing teeth. ASSESSMENT/PLAN: Pt has c/o leg cramps at times throughout OT session she was able to perform ADLs standing at the sink. She functionally uses her (R) UE for bathing routine and tends to not use her (L). She is able to demonstrate (I) with ADLS with vc provided. OT will continue to work with pt to progress functional (I) with ADL routines. TREATMENT CODES/TIME: [id number], 25 minutes (08:50) Nichole Garrett OTR/[facility]
[2018-10-22] MEDS: Magnesium Oxide 400 MG TAB PO (11:21)
[2018-10-22] MEDS: MAGNESIUM SULFATE 2 GM/50 ML BAG IVPB (11:22)
--- NOTE | 2018-10-22 13:05 | PDOC.CMPRO ---
- If Service Date Differs Date of service: 10/22/18 Time of Service: 13:05 Care Management Progress Note S/O: CM met with Darlene in the room with her sister, Gena is considering going to the [facility] for a short stay rehab and straight cath regimen. Darlene's sister is present and tearful today during interaction she is concerned about her sisters pain and discomfort and is grateful for palliative consult. Family is concerned that Darlene's goals of care may be more directed at being comfortable and quality vs quaintly. did suggest a local urology consult to review risk and benefits of indwelling cath, Hospitalist declines and would prefer Darlene's transplant and urology team manage care related to options. Darlene's INR continued to be elevated and her coumadin is on hold. She is not ready for discharge today anticipate she will be ready in the next 48 hours. Referral was placed with the [facility] as an option for discharge as requested by the family. [facility] is reviewing the referral. A: Darlene is a 53 year old female admitted with UTI and new onset of CHF, with a history of immunosurpresive therapy related to kidney transplant. P: Darlene remains acute she will be discharged home vs [facility] when medically ready per provider. Darlene will continue palliative services and follow up with primary care at time of discharge. TRAVIS contacted Urology and Transplant services at [facility] and scheduled an appointment with for 11/07/18 at 10:00 for labs abnd 11:00 with the provider. CM will fax discharge summary to Transplant provider. She was seen by Urology on 10/13/18 and per provider should start with the transplant appointment first.
--- NOTE | 2018-10-22 13:28 | CMPROGNOTE_ITS ---
- If Service Date Differs Date of service: 10/22/18 Time of Service: 13:05 Care Management Progress Note S/O: CM met with Darlene in the room with her sister, Gena is considering going to the [facility] for a short stay rehab and straight cath regimen. Darlene's sister is present and tearful today during interaction she is concerned about her sisters pain and discomfort and is grateful for palliative consult. Family is concerned that Darlene's goals of care may be more directed at being comfortable and quality vs quaintly. did suggest a local urology consult to review risk and benefits of indwelling cath, Hospitalist declines and would prefer Darlene's transplant and urology team manage care related to options. Darlene's INR continued to be elevated and her coumadin is on hold. She is not ready for discharge today anticipate she will be ready in the next 48 hours. Referral was placed with the [facility] as an option for discharge as requested by the family. [facility] is reviewing the referral. A: Darlene is a 53 year old female admitted with UTI and new onset of CHF, with a history of immunosurpresive therapy related to kidney transplant. P: Darlene remains acute she will be discharged home vs [facility] when medically ready per provider. Darlene will continue palliative services and follow up with primary care at time of discharge. TRAVIS contacted Urology and Transplant services at [facility] and scheduled an appointment with for 11/07/18 at 10:00 for labs abnd 11:00 with the provider. CM will fax discharge summary to Transplant provider. She was seen by Urology on 10/13/18 and per provider should start with the transplant appointment first.
--- NOTE | 2018-10-22 14:58 | PT.INTREAT ---
Date of service: 10/22/18 Time of Service: 14:58 PT Notes Inpatient Physical Therapy Treatment Note [facility] Date: 10/22/2018 PRECAUTIONS: Fall SUBJECTIVE: Zaynab is agreeable to participating in PT, although she states that she continues to have bilateral lower extremity pain. OBJECTIVE: PAIN: Patient complained of bilateral lower extremity pain while at rest and with transfers and ther ex BED MOBILITY/TRANSFERS Sit-stand: CGA Stand-sit: CGA GAIT Assistive Device: FWW Weight bearing: Full with orthopedic shoes, bilaterally Assist: CGA Distance: 10' x2 + 100' in a.m.; Deviation: Slow bryn, bilateral knee pain, use of orthopedic shoes bilaterally THEREX: Patient completed a LE and UE strengthening program, in a supine position, as per flow sheet. She was only able to complete bridging exercise x3 due to B LE pain. Static stand at sink with CGA and U UE support x10 minutes. ASSESSMENT: Patient tolerated session well, with complaint of B LE pain. Patient was able to tolerate a progression in gait distance with FWW support and CGA. She continues to demonstrate a slow bryn and continues to complain of bilateral knee pain. Patient would benefit from continued gait and transfer training as well as strengthening for improved mobility and improved activity tolerance. PLAN: Continue with PTs POC TREATMENT CODE/TIME: Session 1: 30 minutes; 51843 ?2 Session 2: 10 minutes; [id number]
--- NOTE | 2018-10-22 15:03 | PTTR_ITS ---
Date of service: 10/22/18 Time of Service: 14:58 PT Notes Inpatient Physical Therapy Treatment Note [facility] Date: 10/22/2018 PRECAUTIONS: Fall SUBJECTIVE: Zaynab is agreeable to participating in PT, although she states that she continues to have bilateral lower extremity pain. OBJECTIVE: PAIN: Patient complained of bilateral lower extremity pain while at rest and wit h transfers and ther ex BED MOBILITY/TRANSFERS Sit-stand: CGA Stand-sit: CGA GAIT Assistive Device: FWW Weight bearing: Full with orthopedic shoes, bilaterally Assist: CGA Distance: 10' x2 + 100' in a.m.; Deviation: Slow bryn, bilateral knee pain, use of orthopedic shoes bilaterally THEREX: Patient completed a LE and UE strengthening program, in a supine position, as per flow sheet. She was only able to complete bridging exercise x3 due to B LE pain. Static stand at sink with CGA and U UE support x10 minutes. ASSESSMENT: Patient tolerated session well, with complaint of B LE pain. Patient was able to tolerate a progression in gait distance with FWW support and CGA. She continues to demonstrate a slow bryn and continues to complain of bilateral knee pain. Patient would benefit from continued gait and transfer training as well as strengthening for improved mobility and improved activity tolerance. PLAN: Continue with PTs POC TREATMENT CODE/TIME: Session 1: 30 minutes; [id number] ?2 Session 2: 10 minutes; [id number]
--- NOTE | 2018-10-22 15:08 | CHAPLAIN ---
I had a short visit with Darlene and her sister. She said she is feeling better. She has been rolling balls of yarn for the prayer [employer].
[2018-10-22] MEDS: Normal Saline Flush 10 ML SYR IVP (15:57)
--- NOTE | 2018-10-22 16:29 | W.PM.PROGNOT ---
Date of Service Date of service: 10/22/18 Time of Service: 16:30 Assessment and Plan (1) UTI (urinary tract infection): Current visit: Yes Status: Acute Both current culture and culture from 10/14/18 growing E. Coli, sensitive to cephalosporins and fluoroquinolones. Was on IV Ceftriaxone, x2 days. Transition to oral antibiotics yesterday with cipro for complicated UTI, however, due to prolonged QT, antibiotics changed from cipro to cefpodoxime. On day #4 antibiotic therapy. Blood cultures with no growth at 48 hours. Continue to monitor cultures. Continue kidd catheter. (2) Abdominal pain: Current visit: Yes Status: Acute Possibly mild ileus noted on abdominal x-ray. She is moving her bowels, no abdominal pain, nausea or vomiting. She is tolerating her diet. Does not appear to be a problem. Continue to encourage frequent ambulation. Continue to monitor. (3) New onset of congestive heart failure: Current visit: Yes Status: Acute Echocardiogram shows LVEF 65-70% with findings consistent with diastolic dysfunction and moderate mitral regurgitation. She is diuresing well with BID IV lasix. Transition to oral lasix, continue to follow intake and output, continue with kidd catheter, continue to follow daily weight. (4) Neurogenic bladder: Current visit: No Status: Acute Continue kidd catheter while hospitalized for UTI. (5) S/P kidney transplant: Current visit: No Status: Acute Continue mycophenolate and prograf, prograf level 3.7 at time of admission. Repeat level pending. has been on stress dose steroids as she is also on prednisone at baseline, continue to taper steroids, transition to oral today. (6) Hypercoagulable state, primary: Current visit: No Status: Acute INR supratherapeutic at 5.6 today in the setting of antibiotic treatment. Hold Coumadin, continue daily INRs. (7) Seizure disorder: Current visit: No Status: Chronic Continue keppra. (8) Osteoarthritis of left hip: Current visit: No Status: Acute With hip pain and plans for hip replacement. Pain improved today. Pain control options discussed with her Transplant Doctor at [facility] who agrees with low dose tramadol, tylenol and lidoderm patch. Continue PT. Qualifiers: Osteoarthritis type: primary Qualified Code(s): M16.12 - Unilateral primary osteoarthritis, left hip (9) DVT prophylaxis: Current visit: No Status: Acute Surpratherapeutic INR, hold coumadin. (10) Discharge planning issues: Current visit: No Status: Acute She is a FULL CODE. [facility] [place], she will return to the home when she is ready for discharge vs rehab at the [facility]. She has been seen by Palliative care. Continue PT. This case was discussed with Dr. Ortega who is in agreement. Subjective Interval history since last seen: Darlene denies shortness of breath, coughing, wheezing. She reports that her hip pain has improved, although she winces in pain when repositioning in the chair. She verbalizes that it is very painful to have her intermittent catheterizations due to the position that her hip is placed in for the procedure. She would like to keep the kidd in place. Her most recent urology note from [facility] indicates that she recommends continued straight caths with different positions and improved hygiene. She has been seen by Dr. Chamorro, Palliative, who suggested possible rehab at the [facility]. Her sister/guardian was present and they are agreeable to her going to the [facility] for rehab. She denies any other concerns such as chest pain/pressure, palpitations, abdominal pain, nausea, vomiting, diarrhea. She had a bowel movement today. She ambulated in the graham with PT today. Exam Narrative Exam Narrative: General: Very pleasant middle-aged female, mildly anxious, sister/guardian present, A&Ox3. Sitting up in the chair. Neurological: A&Ox3, no obvious focal deficits Psychiatric: mildly anxious, answers questions appropriately, speech is clear. Skin: intact HEENT: Atraumatic, normocephalic, EOMI, moist mucous membranes. Neck: supple, no JVD Cardiovascular: regular rate and rhythm, no murmur appreciated. Lungs: respirations even and unlabored, lungs clear bilaterally, no rales or wheezing. Speaks in complete sentences without shortness of breath. : kidd draining clear yellow urine. Gastrointestinal: + bowel sounds, nontender on palpation of left abdomen, soft, nondistended. Extremities: LUE with AV fistula, BLE with trace nonpitting edema, no clubbing/cyanosis, pedal pulses palpable bilaterally. Objective Objective Clinical Data: Abnormal lab results 10/22/18 10/22/18 10/22/18 Range/Units 06:45 06:45 06:45 Hgb 11.9 L (12.0-15.5) g/dL Absolute Lymphocytes 1.09 L (1.2-3.4) k/cumm PT 57.3 H (9.3-11.0) sec INR 5.6 H* D (0.9-1.1) Sodium 130 L (136-145) mmol/L BUN 20 H (7-18) mg/dL Glucose 113 H D (70-100) mg/dL Calcium 8.0 L (8.5-10.1) mg/dL Magnesium 1.6 L (1.8-2.4) mg/dL Vital Signs Temperature 36.6 C 10/22/18 12:17 Temperature Source Tympanic 10/22/18 12:17 Pulse 78 10/22/18 12:17 Pulse Rhythm Regular 10/22/18 07:50 Respiratory Rate 18 10/22/18 12:17 Respiratory Effort Non-Labored 10/22/18 07:50 Respiratory Depth Normal 10/22/18 07:50 Respiratory Pattern Normal 10/22/18 07:50 Blood Pressure 97/59 L 10/22/18 12:17 Blood Pressure Position Sitting 10/19/18 13:47 Pulse Oximetry 96 10/22/18 12:17 Oxygen Delivery Method Room Air 10/22/18 12:17 Oxygen Flow Rate 0 10/22/18 12:17 Pain Level 0 10/22/18 15:57 Comment 10/20/18 07:25 Intake & Output 10/21/18 10/22/18 10/22/18 23:59 11:59 23:59 Intake Total 290 / 650 262 / 502 240 / 502 Output Total 1650 / 1950 220 / 1420 1200 / 1420 Balance -1360 / -1300 42 / -918 -960 / -918 Weight 55.9 kg Intake: IV 50 / 60 22 / 22 Oral 240 / 590 240 / 480 240 / 480 Output: Urine 1650 / 1950 220 / 1420 1200 / 1420 Other: Urine Color Yellow Light Mirella Yellow Urine Appearance Clear Clear Clear Comment Charge Nurse informed of urine output, Kidd was irrigated, no kinks or blockage noted. urine seen in drainage bag will continue to monitor output charge nurse aware of output will continue to monitor Stool Size Small Moderate Stool Characteristics Soft Soft Formed Brown Laboratory Results WBC 6.15 k/cumm (4.4-10.8) 10/22/18 06:45 RBC 4.33 m/cumm (4.00-5.20) 10/22/18 06:45 Hgb 11.9 g/dL (12.0-15.5) L 10/22/18 06:45 Hct 36.3 % (36.0-46.0) 10/22/18 06:45 MCV 83.8 fL (80-95) 10/22/18 06:45 MCH 27.5 pg (27.0-33.0) 10/22/18 06:45 MCHC 32.8 g/dL (32.0-36.0) 10/22/18 06:45 RDW 13.9 % (11.7-14.6) 10/22/18 06:45 Plt Count 318 x1000/uL (130-400) 10/22/18 06:45 MPV 8.9 fL (8.0-11.0) 10/22/18 06:45 Immature Gran % 0.5 10/22/18 06:45 Neutrophils % 71.8 10/22/18 06:45 Lymphocytes % 17.7 10/22/18 06:45 Monocytes % 9.3 10/22/18 06:45 Eosinophils % 0.5 10/22/18 06:45 Basophils % 0.2 10/22/18 06:45 Absolute Neutrophils 4.42 k/cumm (1.2-6.7) 10/22/18 06:45 Absolute Lymphocytes 1.09 k/cumm (1.2-3.4) L 10/22/18 06:45 Absolute Monocytes 0.57 k/cumm (0.11-0.7) 10/22/18 06:45 Absolute Eosinophils 0.03 k/cumm (0.0-0.7) 10/22/18 06:45 Absolute Basophils 0.01 k/cumm (0.0-0.2) 10/22/18 06:45 PT 57.3 sec (9.3-11.0) H 10/22/18 06:45 INR 5.6 (0.9-1.1) H* D 10/22/18 06:45 Sodium 130 mmol/L (136-145) L 10/22/18 06:45 Potassium 4.1 mmol/L (3.5-5.1) 10/22/18 06:45 Chloride 98 mmol/L (98-107) 10/22/18 06:45 Carbon Dioxide 28.6 mmol/L (21.0-32.0) 10/22/18 06:45 Anion Gap 3.4 mmol/L (3-11) 10/22/18 06:45 BUN 20 mg/dL (7-18) H 10/22/18 06:45 Creatinine 0.77 mg/dL (0.55-1.02) 10/22/18 06:45 Estimated GFR/1.73 m2 >= 60.00 (mL/min/1.73m2) 10/22/18 06:45 Glucose 113 mg/dL (70-100) H D 10/22/18 06:45 Calcium 8.0 mg/dL (8.5-10.1) L 10/22/18 06:45 Magnesium 1.6 mg/dL (1.8-2.4) L 10/22/18 06:45 Total Bilirubin 0.8 mg/dL (0.2-1.0) 10/19/18 14:50 AST 30 U/L (15-37) 10/19/18 14:50 ALT 26 U/L (12-78) 10/19/18 14:50 Alkaline Phosphatase 58 U/L (46-116) 10/19/18 14:50 Troponin I < 0.05 ng/mL (0.00-0.06) 10/20/18 06:25 NT-Pro-B Natriuret Pep 1325 pg/mL (-299) H 10/19/18 14:52 Total Protein 6.8 g/dL (6.4-8.2) 10/19/18 14:50 Albumin 2.8 g/dL (3.4-5.0) L 10/19/18 14:50 TSH 1.08 uIU/mL (0.358-3.74) 10/19/18 14:52 Free T4 1.40 ng/dL (0.76-1.46) 10/19/18 14:52 Urine Color Yellow (Yellow) 10/19/18 15:11 Urine Clarity Clear 10/19/18 15:11 Urine pH 8.5 (5-8) H 10/19/18 15:11 Ur Specific [place] 1.015 (1.005-1.025) 10/19/18 15:11 Urine Protein Trace mg/dL (Negative) H 10/19/18 15:11 Urine Ketones Negative mg/dL (Negative) 10/19/18 15:11 Urine Blood Negative (Negative) 10/19/18 15:11 Urine Nitrite Positive (Negative) H 10/19/18 15:11 Urine Bilirubin Negative (Negative) 10/19/18 15:11 Urine Urobilinogen 0.2 EU/dL (Up TO 0.2) 10/19/18 15:11 Ur Leukocyte Esterase Small (Negative) H 10/19/18 15:11 Urine RBC 0-2 (0-2) 10/19/18 15:11 Urine WBC 20-50 HPF (0-5) 10/19/18 15:11 Ur Epithelial Cells Negative HPF (Negative) 10/19/18 15:11 Urine Crystals Negative HPF (Negative) 10/19/18 15:11 Urine Bacteria Many HPF (Negative) 10/19/18 15:11 Urine Casts Negative LPF (Negative) 10/19/18 15:11 Urine Mucus Negative (Negative) 10/19/18 15:11 Urine Other Rare transitional (Negative) 10/19/18 15:11 Ur Culture Indicated? Yes 10/19/18 15:11 Urine Glucose Negative mg/dL (Negative) 10/19/18 15:11 Tacrolimus 3.7 ng/ml 10/19/18 18:45
[2018-10-22] MEDS: Lidocaine 5% Patch 1 PATCH TP (18:23)
[2018-10-22] MEDS: Cefpodoxime 200 MG TAB PO (19:45)
[2018-10-22] MEDS: Acetaminophen 500 MG TAB 1000 MG PO (22:00)
[2018-10-23 03:15] VITALS: BP 118/76; PULSE 74; RESP 16; TEMP 36.4; O2SAT 96
--- NOTE | 2018-10-23 05:00 | PCPN_ITS ---
Date of service: 10/22/18 Time of Service: 10:56 Assessment and Plan (1) Full code status: Current visit: No Status: Acute At this time , further discussioned tabled as we our attempting to work on quality of life. There are multiple factors and specialists involved which complicates direction of care. I spoke with hospitalist at length who has spoken with her transplant surgeon. The transplant surgeon, , there is a plan in place for a ureteral conduit. The plan is for urology to meet with patient and . There was further talk with urology directly and they did not feel that that was the best option. I have read the notes from [facility] from both urology and transplant. Stacy and her Sister Nicol want help from Stacy regarding her bladder problems as well as her left hip pain they also want to improve the quality of Stacy's life especially as it pertains to frequent cathing at her [facility] that she lives in much of this happens at night, and is painful because of her hip. Presently the plan is influx. I will continue to meet and discuss options with Nilsa and her sister. This document was created by [employer] and may contain grammatical and translation errors. I have spent more than 50% of time in counseling with this patient. (2) UTI (urinary tract infection): Current visit: No Status: Acute (3) S/P kidney transplant: Current visit: No Status: Acute (4) Osteoarthritis of left hip: Current visit: No Status: Acute Qualifiers: Osteoarthritis type: primary Qualified Code(s): M16.12 - Unilateral primary osteoarthritis, left hip Subjective Patient reports: feels better, still having pain (with movement) and pain is less Exam Narrative Exam Narrative: Darlene is laying in bed. She looks much more comfortable. She is not wincing as she moves. Const General: cooperative, no acute distress and anxious Nutritional Appearance: average body habitus Orientation: oriented x3 Chest Chest: normal inspection of the chest Resp Effort & Inspection: normal respiratory effort and able to speak in complete sentences GI Inspection: normal to inspection Palpation: soft General: other (Noriega in place) Extrem Other: Pain with hip motion Objective Objective Clinical Data: Abnormal lab results 10/22/18 10/22/18 10/22/18 Range/Units 06:45 06:45 06:45 Hgb 11.9 L (12.0-15.5) g/dL Absolute Lymphocytes 1.09 L (1.2-3.4) k/cumm PT 57.3 H (9.3-11.0) sec INR 5.6 H* D (0.9-1.1) Sodium 130 L (136-145) mmol/L BUN 20 H (7-18) mg/dL Glucose 113 H D (70-100) mg/dL Calcium 8.0 L (8.5-10.1) mg/dL Magnesium 1.6 L (1.8-2.4) mg/dL Vital Signs Temperature 97.5 F L 10/23/18 03:15 Temperature Source Tympanic 10/23/18 03:15 Pulse 74 10/23/18 03:15 Pulse Rhythm Regular 10/22/18 19:30 Respiratory Rate 16 10/23/18 03:15 Respiratory Effort Non-Labored 10/22/18 19:30 Respiratory Depth Normal 10/22/18 19:30 Respiratory Pattern Normal 10/22/18 19:30 Blood Pressure 118/76 10/23/18 03:15 Blood Pressure Position Sitting 10/19/18 13:47 Pulse Oximetry 96 10/23/18 03:15 Oxygen Delivery Method Room Air 10/23/18 03:15 Oxygen Flow Rate 0 10/23/18 03:15 Pain Level 0 10/22/18 23:31 Comment 10/20/18 07:25 Intake & Output 10/22/18 10/22/18 10/23/18 11:59 23:59 11:59 Intake Total 262 / 502 240 / 502 Output Total 220 / 2470 2250 / 2470 100 / 100 Balance -1967 -2009 / - / - Weight 123 lb 3.814 oz Intake: IV Oral 240 / 480 240 / 480 Output: Urine 220 / 2470 2250 / 2470 100 / 100 Other: Urine Color Light Mirella Light Mirella Light Mirella Urine Appearance Clear Clear Clear Comment charge nurse aware of output will continue to monitor Stool Size Moderate Moderate Stool Characteristics Soft Formed Brown Brown Laboratory Results WBC 6.15 k/cumm (4.4-10.8) 10/22/18 06:45 RBC 4.33 m/cumm (4.00-5.20) 10/22/18 06:45 Hgb 11.9 g/dL (12.0-15.5) L 10/22/18 06:45 Hct 36.3 % (36.0-46.0) 10/22/18 06:45 MCV 83.8 fL (80-95) 10/22/18 06:45 MCH 27.5 pg (27.0-33.0) 10/22/18 06:45 MCHC 32.8 g/dL (32.0-36.0) 10/22/18 06:45 RDW 13.9 % (11.7-14.6) 10/22/18 06:45 Plt Count 318 x1000/uL (130-400) 10/22/18 06:45 MPV 8.9 fL (8.0-11.0) 10/22/18 06:45 Immature Gran % 0.5 10/22/18 06:45 Neutrophils % 71.8 10/22/18 06:45 Lymphocytes % 17.7 10/22/18 06:45 Monocytes % 9.3 10/22/18 06:45 Eosinophils % 0.5 10/22/18 06:45 Basophils % 0.2 10/22/18 06:45 Absolute Neutrophils 4.42 k/cumm (1.2-6.7) 10/22/18 06:45 Absolute Lymphocytes 1.09 k/cumm (1.2-3.4) L 10/22/18 06:45 Absolute Monocytes 0.57 k/cumm (0.11-0.7) 10/22/18 06:45 Absolute Eosinophils 0.03 k/cumm (0.0-0.7) 10/22/18 06:45 Absolute Basophils 0.01 k/cumm (0.0-0.2) 10/22/18 06:45 PT 57.3 sec (9.3-11.0) H 10/22/18 06:45 INR 5.6 (0.9-1.1) H* D 10/22/18 06:45 Sodium 130 mmol/L (136-145) L 10/22/18 06:45 Potassium 4.1 mmol/L (3.5-5.1) 10/22/18 06:45 Chloride 98 mmol/L (98-107) 10/22/18 06:45 Carbon Dioxide 28.6 mmol/L (21.0-32.0) 10/22/18 06:45 Anion Gap 3.4 mmol/L (3-11) 10/22/18 06:45 BUN 20 mg/dL (7-18) H 10/22/18 06:45 Creatinine 0.77 mg/dL (0.55-1.02) 10/22/18 06:45 Estimated GFR/1.73 m2 >= 60.00 (mL/min/1.73m2) 10/22/18 06:45 Glucose 113 mg/dL (70-100) H D 10/22/18 06:45 Calcium 8.0 mg/dL (8.5-10.1) L 10/22/18 06:45 Magnesium 1.6 mg/dL (1.8-2.4) L 10/22/18 06:45 Total Bilirubin 0.8 mg/dL (0.2-1.0) 10/19/18 14:50 AST 30 U/L (15-37) 10/19/18 14:50 ALT 26 U/L (12-78) 10/19/18 14:50 Alkaline Phosphatase 58 U/L (46-116) 10/19/18 14:50 Troponin I < 0.05 ng/mL (0.00-0.06) 10/20/18 06:25 NT-Pro-B Natriuret Pep 1325 pg/mL (-299) H 10/19/18 14:52 Total Protein 6.8 g/dL (6.4-8.2) 10/19/18 14:50 Albumin 2.8 g/dL (3.4-5.0) L 10/19/18 14:50 TSH 1.08 uIU/mL (0.358-3.74) 10/19/18 14:52 Free T4 1.40 ng/dL (0.76-1.46) 10/19/18 14:52 Urine Color Yellow (Yellow) 10/19/18 15:11 Urine Clarity Clear 10/19/18 15:11 Urine pH 8.5 (5-8) H 10/19/18 15:11 Ur Specific [place] 1.015 (1.005-1.025) 10/19/18 15:11 Urine Protein Trace mg/dL (Negative) H 10/19/18 15:11 Urine Ketones Negative mg/dL (Negative) 10/19/18 15:11 Urine Blood Negative (Negative) 10/19/18 15:11 Urine Nitrite Positive (Negative) H 10/19/18 15:11 Urine Bilirubin Negative (Negative) 10/19/18 15:11 Urine Urobilinogen 0.2 EU/dL (Up TO 0.2) 10/19/18 15:11 Ur Leukocyte Esterase Small (Negative) H 10/19/18 15:11 Urine RBC 0-2 (0-2) 10/19/18 15:11 Urine WBC 20-50 HPF (0-5) 10/19/18 15:11 Ur Epithelial Cells Negative HPF (Negative) 10/19/18 15:11 Urine Crystals Negative HPF (Negative) 10/19/18 15:11 Urine Bacteria Many HPF (Negative) 10/19/18 15:11 Urine Casts Negative LPF (Negative) 10/19/18 15:11 Urine Mucus Negative (Negative) 10/19/18 15:11 Urine Other Rare transitional (Negative) 10/19/18 15:11 Ur Culture Indicated? Yes 10/19/18 15:11 Urine Glucose Negative mg/dL (Negative) 10/19/18 15:11 Tacrolimus 3.7 ng/ml 10/19/18 18:45
[2018-10-23] MEDS: Acetaminophen 500 MG TAB 1000 MG PO ×2 (05:37→14:16)
[2018-10-23] MEDS: Patch Removal 1 EACH TP (05:39)
[2018-10-23 07:14] VITALS: PULSE 71
[2018-10-23 07:18] LABS: Abs Immature Grans 0.06 k/cumm (0.0-0.09); Absolute Basophil Count 0.03 k/cumm (0.0-0.2); Absolute Lymphocyte Count 1.25 k/cumm (1.2-3.4); Absolute Monocyte Count 0.85 k/cumm (0.11-0.7); Absolute Neutrophil Count 3.83 k/cumm (1.2-6.7); Basophils % 0.5; Eosinophils % 7.7; HCT 36.6 % (36.0-46.0); HGB 11.8 g/dL (12.0-15.5); Immature Grans % 0.9; Lymphocytes % 19.2; Mean Corp. HGB Concentration 32.2 g/dL (32.0-36.0); Mean Corpuscular Hemoglobin 27.4 pg (27.0-33.0); Mean Corpuscular Volume 84.9 fL (80-95); Mean Platelet Volume 8.8 fL (8.0-11.0); Neutrophils % 58.7; Platelet Count 318 x1000/uL (130-400); RBC 4.31 m/cumm (4.00-5.20); RBC Distribution Width 13.9 % (11.7-14.6); White Blood Cell Count 6.52 k/cumm (4.4-10.8)
[2018-10-23 07:40] LABS: Prothrombin Time 40.5 sec (9.3-11.0)
[2018-10-23 07:49] LABS: Anion Gap 6.6 mmol/L (3-11); BUN 22 mg/dL (7-18); CO2 29.4 mmol/L (21.0-32.0); CREATININE 0.73 mg/dL (0.55-1.02); Calcium 7.8 mg/dL (8.5-10.1); Chloride 100 mmol/L (98-107); Glucose 85 mg/dL (70-100); Magnesium 1.9 mg/dL (1.8-2.4); Potassium 4.3 mmol/L (3.5-5.1); Sodium 136 mmol/L (136-145)
[2018-10-23 08:25] VITALS: BP 100/61; PULSE 75; RESP 18; TEMP 36.5; O2SAT 95
--- NOTE | 2018-10-23 08:27 | CMPROGNOTE_ITS ---
- If Service Date Differs Date of service: 10/23/18 Time of Service: 08:27 Care Management Progress Note A: Darlene is a 53 year old female admitted with UTI and new onset of CHF, with a history of immunosurpresive therapy related to kidney transplant. P: Darlene remains acute she will be discharged home vs [facility] when medically ready per provider. Darlene will continue palliative services and follow up with primary care at time of discharge. CM contacted Urology and Transplant services at [facility] and scheduled an appointment with for 11/07/18 at 10:00 for labs abnd 11:00 with the provider. CM will fax discharge summary to Transplant provider. She was seen by Urology on 10/13/18 and per provider should start with the transplant appointment first.
--- NOTE | 2018-10-23 08:42 | OT.INTREAT ---
Date of service: 10/23/18 Time of Service: 08:20 Occupational Therapy Notes Occupational Therapy Inpatient Treatment Note Date: 10/23/18 PRECAUTIONS: Fall, Standard SUBJECTIVE: Pt was sitting in chair when OT arrived. She reports that she would like to hold on getting washed up until she eats her breakfast. OBJECTIVE: PAIN:no c/o pain BATHING: Pt was able to wash her face (I) prior to eating, denies washing UE or other bathing routines at this time. EATING: Sitting in chair pt was unable to sit comfortably with good body mechanics to be able to eat with plate on the table. When cutting food pt dominantly uses just her (R) UE and karlee eof her fork. OT educated pt in (B) hand use and use of both a fork and knife as this will decrease the need to apply so much pressure with her (R) UE decreasing her overall functional activity tolerance. Pt was able to cut her food with (B) hand use however reports that her (L) arm she doesn't like to use a lot. Functionally she required mod (A) for opening and closing containers. Food on her plate was brought down to lap level which pt was able to (I) perform food to mouth translation without need of vc throughout. ASSESSMENT/PLAN: Pt tolerated OT well. She requires vc throughout for for (B) hand use. OT will continue to progress pt towards OT goals. Including standing tolerance and (I) in bathing/dressing routine. TREATMENT CODES/TIME: [id number], 25 minutes (08;20) Nichole Garrett OTR/L [facility]
[2018-10-23] MEDS: levETIRAcetam 500 MG TAB 1500 MG PO (09:04)
[2018-10-23] MEDS: Docusate Sodium 100 MG CAP PO (09:04)
[2018-10-23] MEDS: Cefpodoxime 200 MG TAB PO (09:04)
[2018-10-23] MEDS: Citalopram 20 MG TAB PO (09:05)
[2018-10-23] MEDS: Potassium Chloride 20 MEQ TABCR PO (09:05)
[2018-10-23] MEDS: Tacrolimus 0.5 MG CAP 2 MG PO (09:05)
[2018-10-23] MEDS: predniSONE 5 MG TAB PO (09:05)
[2018-10-23] MEDS: predniSONE 10 MG TAB PO (09:06)
[2018-10-23] MEDS: Furosemide 20 MG TAB PO (09:06)
[2018-10-23] MEDS: Esomeprazole 40 MG CAPCR PO (09:06)
[2018-10-23] MEDS: Nystatin POWDER 60 GM JAR TP (09:47)
[2018-10-23] MEDS: Magnesium Oxide 400 MG TAB PO ×2 (09:47→10:48)
--- NOTE | 2018-10-23 12:37 | PT.INTREAT ---
Date of service: 10/23/18 Time of Service: 12:37 PT Notes Inpatient Physical Therapy Treatment Note [facility] Date: 10/23/2018 PRECAUTIONS: Fall SUBJECTIVE: Darlene reports that she has been having discomfort in bilateral lower extremities this morning, although indicates that she is excited that she could possibly be returning home tomorrow. She also reports that she did not feel that the ice packs on bilateral knees helped with her pain much. She would like to try heat as a pain relief method. OBJECTIVE: PAIN: Patient complained of bilateral knee pain while at rest and with transfers BED MOBILITY/TRANSFERS Sit-stand: CGA Stand-sit: CGA GAIT Assistive Device: FWW Weight bearing: Full Assist: CGA Distance: 10' + 120' Deviation: Slow bryn, use of bilateral orthopedic shoe THEREX: [] TOILETING: Patient toileted with assist ASSESSMENT: Patient tolerated a progression in gait distance with FWW support and CGA. Patient continues to demonstrate slow bryn, although did not complain of knee pain with gait training today. Patient continues to complain of bilateral knee pain while at rest and with transfers. Patient would benefit from continued gait and transfer training as well as strengthening for improved mobility and improved activity tolerance. PLAN: Continue with PTs POC TREATMENT CODE/TIME: 30 minutes; [id number] x2
--- NOTE | 2018-10-23 12:44 | PTTR_ITS ---
Date of service: 10/23/18 Time of Service: 12:37 PT Notes Inpatient Physical Therapy Treatment Note [facility] Date: 10/23/2018 PRECAUTIONS: Fall SUBJECTIVE: Darlene reports that she has been having discomfort in bilateral lower extremities this morning, although indicates that she is excited that she could possibly be returning home tomorrow. She also reports that she did not feel that the ice packs on bilateral knees helped with her pain much. She would like to try heat as a pain relief method. OBJECTIVE: PAIN: Patient complained of bilateral knee pain while at rest and with transfers BED MOBILITY/TRANSFERS Sit-stand: CGA Stand-sit: CGA GAIT Assistive Device: FWW Weight bearing: Full Assist: CGA Distance: 10' + 120' Deviation: Slow bryn, use of bilateral orthopedic shoe THEREX: [] TOILETING: Patient toileted with assist ASSESSMENT: Patient tolerated a progression in gait distance with FWW support and CGA. Patient continues to demonstrate slow bryn, although did not comp shiva of knee pain with gait training today. Patient continues to complain of bilateral knee pain while at rest and with transfers. Patient would benefit from continued gait and transfer training as well as strengthening for improved mobility and improved activity tolerance. PLAN: Continue with PTs POC TREATMENT CODE/TIME: 30 minutes; [id number] x2
[2018-10-23 13:00] VITALS: BP 110/67; PULSE 71; RESP 18; TEMP 36.6; O2SAT 95
[2018-10-23] MEDS: traMADol 50 MG TAB PO (13:35)
--- NOTE | 2018-10-23 14:37 | PDOC.CMDIS ---
- If Service Date Differs Date of service: 10/23/18 Time of Service: 14:37 LACE Index Scoring Tool - Questions: Length of Stay (in days): 4 - 6 Acuity (Admit via E.D.?): Yes Comorbidities: Congestive Heart Failure E.D. Visits: 2 - Answers: Total Score: 11 Risk of Readmission: High Risk Care Management Discharge Reason for Hospitalization: UTI/ CHF Discharge Plan: Darlene will be discharged home today CM contacted Sarah Caruso home nurse provider and reviewed discharged instructions. CM contacted Urology who will see Darlene on 11/10/18 at [facility] to follow up indwelling kidd and discuss other options to prevent furthur cathing which she complains are very painful. CM contacted transplant at [facility] and schedueld follow up on 11/07/18. CM will fax d/c instructions to RN caring for Darlene in the community based home. CM contacted palliative to have service follow up with Darlene at home. Patient/Family Education Needs: Discharge instructions, which included telephone instruction with RN and caregiver present at the bedside.
--- NOTE | 2018-10-23 14:45 | DSE_ITS ---
Date of service: 10/23/18 Time of Service: 14:46 DS: Diagnosis Discharge Diagnosis (1) Full code status: Status: Acute (2) UTI (urinary tract infection): Status: Acute (3) S/P kidney transplant: Status: Acute (4) Osteoarthritis of left hip: Status: Acute Discharge Plan Disposition Patient Disposition: [facility] Condition: Improving Discharge Details Reason For Visit: UTI, CHF Admit Date/Time: 10/19/18 18:12 Admit Provider: Renée Dumont Attending Provider: Renée Dumont Primary Care Provider: Nader Dobson Hospital Course Hospital Course: Darlene Farah is a very pleasant 53 year old female with a past medical history significant for kidney transplant (this is her 3rd) on tripple immunosuppressive therapy, neurogenic bladder (intermittent catheterization at home), prior episode of small bowel obstruction, hypercoagulable state on coumadin, hypertension, seizure disorder, VRE colonization, who [resente to the ED on 10/19/18 with reports of fevers x5 days, generalized weakness, shortness of breath. She was found to have a urinary tract infection in the ED. She had a culture from 10/14/18, ordered by her transplant team - Dr Mina, which grew 2 strains of E. Coli, both susceptible to cephalosporins, no VRE. Repeat culture at the time of her admission grew E. Coli resistant to ampicillin, augmentin and bactrim. She was treated with ceftriaxone and transitioned to oral cipro. The cipro was then changed to cefpodoxime due to prolonged QT interval. She had a kidd in place during the hospitalization. During her initial evaluation in the ED, she was also found to have Cardiomegaly and question of pulmonary edema vs bilateral pneumonitis on chest x-ray. She does not have a history of CHF. She went on to have an echocardiogram which showed LVEF 65-70% with Findings consistent with diastolic dysfunction. Doppler parameters consistent with high ventricular filling pressure. Moderate mitral regurgitation. She was started on IV lasix and diuresed well over the following days. She had significant urinary output. She will be discharged home on oral lasix. There was also concern for possibly ielus in this patient with history of bowel obstruction early in her hospitalization. She had an abdominal x-ray which showed Mild gaseous distension suggestive of mild ileus. Frequent ambulation was encouraged. She began to have normal bowel movements, she was tolerating her diet, she denied abdominal pain, nausea or vomiting. She also has left hip pain. There is a plan to hopefully replace her hip, however, she will need to be free of urinary infection prior. She was placed on a pain management regimen that was discussed with her [place], [place] [facility] [place] he was in agreement with the plan. She will remain on low dose tramadol, tylenol and lidoderm patch. Her prograf level at the time of admission was 3.7, repeat level is pending. Of concern is her quality of life that is described as poor by the patient and her sister. They describe severe discomfort in her hip when she is positioned for straight catheterization. She is cathed [id number] and she spends her time dreading the next cath time. She wants to maintain an indwelling catheter. She feels that her transplant team's only concern is saving her kidney and not about her quality of life. She met with palliative care, however, with multiple different specialists involved in her care, it has been difficult to make decisions or change direction of care. Ultimately, she wants a better quality of life. She has a guardian, her sister, Nicol, who is a strong advocate for her. They have asked to be set up with a local urologist. This case was discussed with Dr. Berman, Urology here at [facility], who did not feel that maintaining a kidd catheter for less than 30 days would be a problem. He has agreed to see her in the urology clinic to discuss options. He advised that she can be discharged home with a kidd in place and he will follow up with her. She would benefit from ongoing palliative visits. She is discharged home with kidd in place. She will complete a course of Cefpodoxime (pharmacy advised higher efficacy than keflex) for complicated UTI. She should have daily weights and maintain low sodium diet. She will remain on oral lasix. Her INR is elevated at 4 (down from 5.6). She will have follow up INR tomorrow. She will follow up with her PCP as scheduled. She will follow up with Urology 11/10/18 at 1500. She will follow up with Dr. Mina as scheduled. Home Meds and New Rx's Prescriptions: New cefpodoxime 200 mg Tablet 200 mg PO BID Qty: 20 RF: 0 tramadol 50 mg Tablet 25 - 50 mg PO Q8H PRN PRNQty: 12 RF: 0 tramadol 50 mg Tablet 50 mg PO HS Qty: 0 RF: 0 lidocaine [Lidoderm] 5 % Adhesive Patch,Medicated 1 patch topical DAILY@1800 Qty: 14 RF: 0 furosemide 20 mg Tablet 20 mg PO BID@0830,1600 Qty: 60 RF: 0 nystatin 100,000 unit/gram Powder topical BID Qty: 0 RF: 0 Continued acetaminophen [Tylenol] 325 MG tablet 650 mg PO PRN RF: 0 alendronate 70 MG tablet 70 mg PO DIRECTED RF: 0 levetiracetam [Keppra] 750 MG tablet 1,500 mg PO BID RF: 0 docusate sodium 100 mg Capsule 100 mg PO DAILY PRNRF: 0 polyethylene glycol 3350 [Miralax] 17 gram/dose Powder 17 g PO DAILY PRNRF: 0 Nii Protect Cream 1 applic topical . DIRECTED PRNRF: 0 cetirizine 10 mg Tablet 10 mg PO DAILY PRNRF: 0 mycophenolate mofetil 250 mg Capsule 250 mg PO BID RF: 0 prednisone 5 mg Tablet 5 mg PO Q OTHER DAY RF: 0 hydrocortisone 1 % Cream 1 applic TOPICAL BID-QID PRNRF: 0 esomeprazole magnesium [Nexium] 40 mg Capsule,Delayed Release(Dr/Ec) 40 mg PO DAILY RF: 0 guaifenesin [Tussin] 100 mg/5 mL Liquid 200 mg PO Q4H PRNRF: 0 citalopram 20 mg Tablet 20 mg PO DAILY RF: 0 warfarin 5 mg Tablet 5 mg PO DAILY RF: 0 tacrolimus [Prograf] 1 mg Capsule 2 mg PO Q12H RF: 0 Discharge Instructions Instructions: Heart Failure (DC), Kidd Catheter Placement and Care (DC) Additional Instructions: DO NOT TAKE COUMADIN UNTIL YOUR PCP ADVISES YOU TO RESTART IT. Your INR will be rechecked tomorrow 10/24/18. Continue taking antibiotics for 10 more days. Start taking Lasix two times per day. Monitor weights and for edema. Take care! Stand Alone Forms: Nursing Discharge Form Referrals: Kyle Mina [ NON-[facility] STAFF PHYSICIAN] - 11/07/18 10:00 am Luis Berman MD [ [facility] STAFF PHYSICIAN] - 11/10/18 3:00 pm Nader Dobson MD [Primary Care Provider] - 11/03/18 3:25 pm Activity:: Activity as Tolerated Equipment/Supplies:: No Equipment Needed Diet:: Low Sodium Discharge Orders Discharge Orders: Discharge Order (Routine); Ordered 10/23/18 Ordered By: Sheila Johnson Other Ambulatory Orders: Prothrombin Time (Routine) Timeframe: 1 Day Location: Determined by Patient Ordered By: Sheila Johnson Exam Narrative Exam Narrative: General: Very pleasant middle-aged female, A&Ox3. Sitting up in the chair. Neurological: A&Ox3, no obvious focal deficits Psychiatric: appears calm, answers questions appropriately, speech is clear. Skin: intact HEENT: Atraumatic, normocephalic, EOMI, moist mucous membranes. Neck: supple, no JVD Cardiovascular: regular rate and rhythm, no murmur appreciated. Lungs: respirations even and unlabored, lungs clear bilaterally, no rales or wheezing. Speaks in complete sentences without shortness of breath. : kidd draining clear yellow urine. Gastrointestinal: + bowel sounds, nontender on palpation of left abdomen, soft, nondistended. Extremities: LUE with AV fistula, BLE with trace nonpitting edema, no clubbing/cyanosis, pedal pulses palpable bilaterally. DS: Data Vitals/I&O Vitals and I&O: Vital Signs Temperature 36.5 C 10/23/18 08:25 Temperature Source Temporal Artery Scan 10/23/18 08:25 Pulse 75 10/23/18 08:25 Pulse Rhythm Regular 10/23/18 08:47 Respiratory Rate 18 10/23/18 08:25 Respiratory Effort 10/23/18 08:47 Respiratory Depth Normal 10/23/18 08:47 Respiratory Pattern Normal 10/23/18 08:47 Blood Pressure 100/61 10/23/18 08:25 Blood Pressure Position Sitting 10/19/18 13:47 Pulse Oximetry 95 10/23/18 08:25 Oxygen Delivery Method Room Air 10/23/18 08:25 Oxygen Flow Rate 0 10/23/18 08:25 Pain Level 5 10/23/18 14:16 Comment 10/20/18 07:25 Intake & Output 06/26/19 06/27/19 06/27/19 23:59 11:59 23:59 Intake Total 240 / 502 240 / 240 Output Total 2250 / 2470 300 / 300 Balance -2009 / 1968 -60 60 Weight 56.6 kg Intake: Oral 240 / 480 240 / 240 Output: Urine 2250 / 2470 300 / 300 Other: Urine Color Light Mirella Light Mirella Urine Appearance Clear Clear Stool Size Moderate Stool Characteristics Soft Brown Completed studies during hospitalization [Text1]: 10/19/2018: AP AND LATERAL CHEST: Comparison is made with 22 Jan 2017. Sternal wires and cardiomegaly are again noted. There is mitral valve calcification. There is vascular prominence and increased interstitial markings which could indicate CHF. There are underlying chronic fibrotic changes as seen on the previous exam. There are no pleural effusions or definite focal consolidation. There is a left axillary stent. IMPRESSION: Cardiomegaly and question of pulmonary edema vs bilateral pneumonitis. FLAT AND DECUBITUS VIEWS OF ABDOMEN: No free air is seen. The lung bases appear clear. There is mild diffuse gaseous distension of the colon and small bowel. There are no findings to suggest obstruction. Multiple vascular clips in the low pelvis. No organomegaly is seen. Vascular calcifications are noted. There are severe degenerative changes of the left hip and moderate degenerative changes of the right hip. IMPRESSION Mild gaseous distension suggestive of mild ileus. Date of study: 10/20/2018 Transthoracic Echocardiography M-mode, complete 2D, complete spectral Doppler, and color Doppler *STUDY CONCLUSIONS* Summary: 1. Left ventricle: The cavity size was mildly dilated. Systolic function was hyperdynamic. The estimated ejection fraction was 65-70%. EF > 60%, ESD > 40 mm. Findings consistent with diastolic dysfunction. Doppler parameters are consistent with high ventricular filling pressure. 2. Aortic valve: There was mild regurgitation. 3. Mitral valve: Mildly calcified annulus. Moderately thickened, myxomatous leaflets anterior and posterior. Mild prolapse, involving the anterior leaflet and the posterior leaflet. There was moderate regurgitation directed eccentrically. 4. Left atrium: The atrium was moderately dilated. 5. Right ventricle: The cavity size was normal. Wall thickness was normal. The moderator band was in a normal position. Systolic function was normal. 6. Atrial septum: No defect or patent foramen ovale was identified. 7. Pulmonary arteries: Pulmonary systolic pressure was in the range of 15mm Hg to 25mm Hg. 8. Inferior vena cava: The vessel was patent and normal in size. The respirophasic diameter changes were in the normal range (greater than or equal to 50%), consistent with normal central venous pressure. Labs on day of discharge: Labs from last 24 hours 10/23/18 10/23/18 10/23/18 06:40 06:40 06:40 WBC 6.52 RBC 4.31 Hgb 11.8 L Hct 36.6 MCV 84.9 MCH 27.4 MCHC 32.2 RDW 13.9 Plt Count 318 MPV 8.8 Immature Gran % 0.9 Neutrophils % 58.7 Lymphocytes % 19.2 Monocytes % 13.0 Eosinophils % 7.7 Basophils % 0.5 Absolute Neutrophils 3.83 Absolute Lymphocytes 1.25 Absolute Monocytes 0.85 H Absolute Eosinophils 0.50 Absolute Basophils 0.03 PT 40.5 H INR 4.0 H D Sodium 136 Potassium 4.3 Chloride 100 Carbon Dioxide 29.4 Anion Gap 6.6 BUN 22 H Creatinine 0.73 Estimated GFR/1.73 m2 >= 60.00 Glucose 85 Calcium 7.8 L Magnesium 1.9 Tacrolimus 10/22/18 16:55 WBC RBC Hgb Hct MCV MCH MCHC RDW Plt Count MPV Immature Gran % Neutrophils % Lymphocytes % Monocytes % Eosinophils % Basophils % Absolute Neutrophils Absolute Lymphocytes Absolute Monocytes Absolute Eosinophils Absolute Basophils PT INR Sodium Potassium Chloride Carbon Dioxide Anion Gap BUN Creatinine Estimated GFR/1.73 m2 Glucose Calcium Magnesium Tacrolimus Pending Preliminary micro results at discharge 10/19/18 19:00 Blood Culture - Preliminary Blood NO GROWTH 72 HOURS 10/19/18 18:45 Blood Culture - Preliminary Blood NO GROWTH 72 HOURS [facility] Medical History Chronic anticoagulation Chronic kidney disease Convulsions Hyperparathyroidism Neurogenic bladder Osteoporosis Peripheral neuropathy Protein S deficiency TBI (traumatic brain injury) Surgical History Colonoscopy - MAC (02/11/15) Fistula creation Renal Transplant Social History Smoking/Tobacco Use Status: Never Alcohol Intake: never Drug use: Never Substance use type: does not use Do you feel safe at home: Yes Do you feel safe in your relationship?: Yes Additional Social history: Lives in prison in [place]. Has [facility] care there as well.
--- NOTE | 2018-10-23 14:59 | CMDISCH_ITS ---
- If Service Date Differs Date of service: 10/23/18 Time of Service: 14:37 LACE Index Scoring Tool - Questions: Length of Stay (in days): 4 - 6 Acuity (Admit via E.D.?): Yes Comorbidities: Congestive Heart Failure E.D. Visits: 2 - Answers: Total Score: 11 Risk of Readmission: High Risk Care Management Discharge Reason for Hospitalization: UTI/ CHF Discharge Plan: Darlene will be discharged home today CM contacted Sarah Caruso home nurse provider and reviewed discharged instructions. CM contacted Urology who will see Darlene on 11/10/18 at [facility] to follow up indwelling kidd and discuss other options to prevent furthur cathing which she complains are very painful. CM contacted transplant at [facility] [place] and schedueld follow up on 11/07/18. CM will fax d/c instructions to RN caring for Darlene in the community based home. CM contacted palliative to have service follow up with Darlene at home. Patient/Family Education Needs: Discharge instructions, which included telephone instruction with RN and caregiver present at the bedside.
[2018-10-23 16:05] VITALS: PULSE 77
--- NOTE | 2018-10-23 17:34 | NUR.NOTE ---
Patient has large fistula in the left arm. Nursing was able to auscultate bruit. Patient denies pain or altered sensation from baseline at the site. Nursing Note:
--- NOTE | 2018-10-23 18:00 | PT.INDS ---
Date of service: 10/23/18 PT Notes Inpatient Physical Therapy Discharge Summary Dates: 10/23/2018 Dates of Service: 10/20/2018 through 10/23/2018 This is a clinical summary of care provided on the duration of dates listed above. No charge was made in the completion of this documentation. Referring Doctor: Renée Dumont MD PT Orders: PT CONSULT: Eval/treat Precautions: Fall. Standard. Seizure-prone. Activity as tolerated. Patient Profile/Admitting Diagnosis: Patient is a 53-year-old female with past medical history significant for status post renal transplant x 3, on immunosuppressives, and with neurogenic bladder who presented to the ED on 10/19/2018 with chief complaints of fever, weakness, and dyspnea on exertion for the past 5 days. Patient was diagnosed with urinary tract infection, abdominal pain, new onset congestive heart failure, and hypercoagulable state. Medical History Chronic anticoagulation Chronic kidney disease Convulsions Hyperparathyroidism Neurogenic bladder Osteoporosis Peripheral neuropathy Protein S deficiency TBI (traumatic brain injury) Surgical History Colonoscopy - MAC (02/11/15) Fistula creation Renal Transplant Social History/Home Situation: Patient lives with a caregiver in a jail with a ramp to enter in [place], [place]. She is independent with all mobility ADLs using a 4 wheeled walker. She is able to manage bathing and dressing on her own but has a caregiver who takes care of medications, meals, laundry, grocery shopping, and medical transportation. Current Functional Limitations: Need for assistance in all transfer and ambulation task performance using FWW Equipment Owned/DME: FWW Subjective: NT Objective: General Observation: NT Mental Status: NT Pain: NT ROM: Right Upper Extremity: Shoulder Flexion WFL. Shoulder abduction WFL. Elbow flexion WFL. Wrist flexion WFL. Functional opening and closing of hand WFL. Left Upper Extremity: Shoulder Flexion WFL. Shoulder abduction WFL. Elbow flexion WFL. Wrist flexion WFL. Functional opening and closing of hand WFL. Right Lower Extremity: Hip flexion WFL. Hip abduction WFL. Knee flexion WFL. Ankle dorsiflexion 0-5. Ankle plantarflexion WFL. Left Lower Extremity: Hip flexion WFL. Hip abduction WFL. Knee flexion WFL. Ankle dorsiflexion 0-5. Ankle plantarflexion WFL. Strength: Right Upper Extremity: Shoulder flexors 4/5. Shoulder abductors 4/5. Elbow flexors 4/5. Elbow extensors 4/5. Fitness And Wellness Instructor strong. Left Upper Extremity: Shoulder flexors 4/5. Shoulder abductors 4/5. Elbow flexors 4/5. Elbow extensors 4/5. Fitness And Wellness Instructor strong. Right Lower Extremity: Hip flexors 3+/5. Hip abductors 4-/5. Knee flexors 4-/5. Knee extensors 3+/5. Ankle dorsiflexors 3-/5. Ankle plantarflexors 3-/5. Left Lower Extremity: Hip flexors 3+/5. Hip abductors 4-/5. Knee flexors 4-/5. Knee extensors 3+/5. Ankle dorsiflexors 3-/5. Ankle plantarflexors 3-/5. Sensation: Intact as to pain and pressure on bilateral lower extremities. Bed Mobility/Transfers: Rolling CGA Supine to sit CGA Sit to supine CGA Sit to stand CGA with bilateral UEs support and using FWW Stand to sit CGA with bilateral UEs support and using FWW Bed to chair CGA with bilateral UEs support and using FWW Chair to bed CGA with bilateral UEs support and using FWW Gait: Patient was able to tolerate level surface ambulation of 120 feet with CGA provided using FWW with FWB. Bilateral feet eversion with genu vara observed. Thoracic scoliosis noted. increased trunk flexion seen during gait activity. Decreased gait velocity with decreased bilateral knee flexion. Balance: Static Sitting: Good Dynamic Sitting: Fair Static Standing: Fair Dynamic Standing: Fair Assessment: 53-year-old female who is status post renal transplant x3 on immunosuppressive's and with neurogenic bladder now with urinary tract infection, abdominal pain, and new onset congestive heart failure. Patient continues to present with clinical signs and symptoms consistent with current/admitting diagnoses that have resulted to mobility limitations, gait instability, generalized weakness, and impairment of motor control as demonstrated by the following impairment level findings: 1. Decreased strength to B LE major muscle groups 2. Impaired sitting/standing balance 3. Impaired activity tolerance 4. Limitation of joint range of motion in bilateral ankles Impairments are contributing to the following functional limitations: 1. Dependent bed mobility skills 2. Increased dependence with transfers 3. Inability to safely ambulate without assistive device and physical assistance 4. Increase completion time for mobility ADL performance 5. Increased fall risk 6. Inability to negotiate steps alone safely Goals: Goals X1 week 1. Supine-Sit independent NOT MET 2. Sit-Supine independent NOT MET 3. Sit-Stand independent NOT MET 4. Stand-Sit independent NOT MET 5. Bed-Chair independent NOT MET 6. Chair-Bed independent NOT MET 7. Independent gait on level surface with use of least restrictive device for at least 100 feet without report of pain nor dyspnea NOT MET 8. Independent with home exercise program NOT MET 9. Good static and dynamic standing balance/tolerance NOT MET DISCHARGE RECOMMENDATIONS: Patient will benefit from home health PT services in order to progress mobility level using least restrictive assistive ambulatory device/using no device, assess home safety, identify additional equipment needs, and establish a functional maintenance program that will increase ability of patient to remain at home. TREATMENT CODE/TIME: SC. Thank you very much for this referral. Scarlet Jade PT, DPT, CLT [facility]
--- NOTE | 2018-10-24 08:01 | OT.INDS ---
Date of service: 10/24/18 Time of Service: 08:01 Occupational Therapy Notes Occupational Therapy Inpatient Discharge Summary Date: 10/24/18 Dates of Service: 10/20/18-10/24/18 Referring Doctor: Renée Dumont MD OT Orders: Eval and Treat Precautions: Fall, Decreased safety awareness, Standard PATIENT PROFILE/ADMITTING DIAGNOSIS: Pt is a 53 year old female admitted through the ER on 10/19/18 for UTI, pulmonary edema, CHF, Tinea Cruris, hypomagnesemia and is s/p renal transplant x3 and has a neurogenic bladder. Past Medical History: Chronic anticoagulation Chronic kidney disease Convulsions Hyperparathyroidism Neurogenic bladder Osteoporosis Peripheral neuropathy Protein S deficiency TBI (traumatic brain injury) Surgical History Colonoscopy - MAC (02/11/15) Fistula creation Renal Transplant Social History/Home Situation: Pt states that she lives in a residential setting in [place], [place]. She reports that she is functionally (I) with all ADLs/IADLs and later states that she requires (A) with putting on (B) socks, pulling up her pants, and helping her whenever she needs it for food. She reports that she is unable to cut her own food. She uses a shower chair in the shower and states that she uses a FWW for functional mobility. Equipment owned/DME: FWW, shower chair SUBJECTIVE: NT This document serves as a summary of care, no skilled OT services provided for this documentation. OBJECTIVE: ROM: RUE Shoulder flexion limited to 130*, elbow WNL, hand and digits WNL L UE Shoulder flexion WNL, elbow WNL, hand and digits WNL STRENGTH: RUE Shoulder flexion 3-/5, bicep 3-/5, tricep 3/5, wound specialist is weak LUE Shoulder flexion 3-/5, bicep 3-/5, tricep 3-/5, wound specialist is weak FUNCTIONAL MOBILITY/ADLS: BATHING Max (A) LE, (I) UE in seated and standing positions with FWW DRESSING max (A) don and doff (B) LE socks EATING min (A) cutting food, (I) hand to mouth translation BALANCE: Static sitting Good Dynamic Sitting Good ASSESSMENT: Patient is a 53-year-old female referred to occupational therapy services with diagnosis of UTI, pulmonary edema, CHF, tinea cruris, hypomagnesemia. Pt was seen for 4 skilled OT sessions. Pt was able to demonstrate increased (I) in her ADLs but required max (A) for LE dressing and bathing as well as decreased functional activity tolerance. Pt was discharged back to residential on 10/23/18 with plans to follow up for her care on an outpatient visits. GOALS 1. Transfers- FWW (S) - not met 2. Dressing Sitting in chair mod (A) don and doffing (B) socks and pants, (I) donning and doffing UE- not met 3. Bathing Sitting in chair min (A) LE, (I) UE - not met 4. Toileting on toilet min (A) - met 5. Eating sitting in chair (I) - not met 6. Grooming sitting in chair (I) teeth and hair - met PLAN OF CARE/TREATMENT PLAN: Discharge pt from skilled OT services. DISCHARGE RECOMMENDATIONS Return to home group setting when medically cleared per MD. TREATMENT TIME/MINUTES/CODES N/A Nichole Garrett OTR/L [facility]
--- NOTE | 2018-10-24 08:07 | OTDS_ITS ---
Date of service: 10/24/18 Time of Service: 08:01 Occupational Therapy Notes Occupational Therapy Inpatient Discharge Summary Date: 10/24/18 Dates of Service: 10/20/18-10/24/18 Referring Doctor: Renée Dumont MD OT Orders: Eval and Treat Precautions: Fall, Decreased safety awareness, Standard PATIENT PROFILE/ADMITTING DIAGNOSIS: Pt is a 53 year old female admitted through the ER on 10/19/18 for UTI, pulmonary edema, CHF, Tinea Cruris, hypomagnesemia and is s/p renal transplant x3 and has a neurogenic bladder. Past Medical History: Chronic anticoagulation Chronic kidney disease Convulsions Hyperparathyroidism Neurogenic bladder Osteoporosis Peripheral neuropathy Protein S deficiency TBI (traumatic brain injury) Surgical History Colonoscopy - MAC (02/11/15) Fistula creation Renal Transplant Social History/Home Situation: Pt states that she lives in a long term setting in [place], [place]. She reports that she is functionally (I) with all ADLs/IADLs and later states that she requires (A) with putting on (B) socks, pulling up her pants, and helping her whenever she needs it for food. She reports that she is unable to cut her own food. She uses a shower chair in the shower and states that she uses a FWW for functional mobility. Equipment owned/DME: FWW, shower chair SUBJECTIVE: NT This document serves as a summary of care, no skilled OT services provided for this documentation. OBJECTIVE: ROM: RUE Shoulder flexion limited to 130*, elbow WNL, hand and digits WNL L UE Shoulder flexion WNL, elbow WNL, hand and digits WNL STRENGTH: RUE Shoulder flexion 3-/5, bicep 3-/5, tricep 3/5, wheel braider is weak LUE Shoulder flexion 3-/5, bicep 3-/5, tricep 3-/5, wheel braider is weak FUNCTIONAL MOBILITY/ADLS: BATHING Max (A) LE, (I) UE in seated and standing positions with FWW DRESSING max (A) don and doff (B) LE socks EATING min (A) cutting food, (I) hand to mouth translation BALANCE: Static sitting Good Dynamic Sitting Good ASSESSMENT: Patient is a 53-year-old female referred to occupational therapy services with diagnosis of UTI, pulmonary edema, CHF, tinea cruris, h ypomagnesemia. Pt was seen for 4 skilled OT sessions. Pt was able to demonstrate increased (I) in her ADLs but required max (A) for LE dressing and bathing as well as decreased functional activity tolerance. Pt was discharged back to long term on 10/23/18 with plans to follow up for her care on an outpatient visits. GOALS 1. Transfers- FWW (S) - not met 2. Dressing Sitting in chair mod (A) don and doffing (B) socks and pants, (I) donning and doffing UE- not met 3. Bathing Sitting in chair min (A) LE, (I) UE - not met 4. Toileting on toilet min (A) - met 5. Eating sitting in chair (I) - not met 6. Grooming sitting in chair (I) teeth and hair - met PLAN OF CARE/TREATMENT PLAN: Discharge pt from skilled OT services. DISCHARGE RECOMMENDATIONS Return to home group setting when medically cleared per MD. TREATMENT TIME/MINUTES/CODES N/A Nichole Garrett OTR/L [facility]
[2018-10-24 13:39] LABS: Tacrolimus 3.1 ng/ml
== END 2018-10-23 16:35 | disposition designated cancer center or children's hospital (05) | DRG 689 ==
LOC: ER 18:42 → MS 19:25
PROVIDERS: Nurse Practitioner; Admitting Provider Internal Medicine; Emergency Provider Student in an Organized Health Care Education/Training Program; PCP Internal Medicine; Visit Provider Internal Medicine
DX: N39.0 Urinary tract infection, site not specified (principal); I50.31 Acute diastolic (congestive) heart failure; Z94.0 Kidney transplant status; D68.59 Other primary thrombophilia; K56.7 Ileus, unspecified; M25.552 Pain in left hip; M16.12 Unilateral primary osteoarthritis, left hip; N31.9 Neuromuscular dysfunction of bladder, unspecified; Z79.01 Long term (current) use of anticoagulants; Z22.39 Carrier of other specified bacterial diseases; B96.20 Unspecified Escherichia coli [E. coli] as the cause of diseases classified elsewhere; Z16.11 Resistance to penicillins; Z16.29 Resistance to other single specified antibiotic; G40.909 Epilepsy, unspecified, not intractable, without status epilepticus; Z87.820 Personal history of traumatic brain injury; I51.7 Cardiomegaly; I08.0 Rheumatic disorders of both mitral and aortic valves; I11.0 Hypertensive heart disease with heart failure; I45.81 Long QT syndrome
CPT/HCPCS: 36415; 80048; 80053; 87040; 87077; 93306; 97110; 97162; 97166; 97530; 97535; 99223; 99232; 99233; 99239; 99255; 71046; 74019; 80197; 81003; 81015; 83735; 83880; 84439; 84443; 84484; 85025; 85610; 87086; 87186; J0696; J1720; J1941; J3490; J7512; J7517

== ENCOUNTER 2018-10-28 12:24 | Inpatient (IN) | payer MEDICARE, MEDICAID, SELFPAY ==
[2018-10-28] VITALS (74 sets, daily range): BP systolic 78–120; BP diastolic 36–56; PULSE 66–90; RESP 18; TEMP 37.4–38.8; O2SAT 89–98
--- NOTE | 2018-10-28 12:31 | DI.RAD_ITS ---
SYMPTOM/DIAGNOSIS: COUGH, FEVER, IMMUNOCOMPROMISED AP AND LATERAL CHEST: Comparison is made with 10/19/18. The heart is again noted to be grossly enlarged. Sternal wires and left axillary stent are again noted. There are underlying interstitial changes which appear chronic. The previous exam shows some evidence of CHF. This appears less prominent when compared with the previous exam. No definite focal infiltrate is seen. IMPRESSION: Cardiomegaly and question of mild pulmonary edema. There has been some improvement when compared with the previous exam. No focal infiltrates are seen.
[2018-10-28 12:54] LABS: Abs Immature Grans 0.06 k/cumm (0.0-0.09); Absolute Basophil Count 0.01 k/cumm (0.0-0.2); Absolute Eosinophil Count 0.34 k/cumm (0.0-0.7); Absolute Lymphocyte Count 0.65 k/cumm (1.2-3.4); Absolute Monocyte Count 0.47 k/cumm (0.11-0.7); Absolute Neutrophil Count 4.83 k/cumm (1.2-6.7); Basophils % 0.2; Eosinophils % 5.3; HCT 33.1 % (36.0-46.0); HGB 11.2 g/dL (12.0-15.5); Immature Grans % 0.9; Lymphocytes % 10.2; Mean Corp. HGB Concentration 33.8 g/dL (32.0-36.0); Mean Corpuscular Hemoglobin 27.7 pg (27.0-33.0); Mean Corpuscular Volume 81.9 fL (80-95); Mean Platelet Volume 8.5 fL (8.0-11.0); Monocytes % 7.4; Platelet Count 281 x1000/uL (130-400); RBC 4.04 m/cumm (4.00-5.20); RBC Distribution Width 14.2 % (11.7-14.6); White Blood Cell Count 6.36 k/cumm (4.4-10.8)
[2018-10-28] MEDS: Acetaminophen 500 MG TAB 1000 MG PO (12:56)
[2018-10-28 12:57] LABS: Lactate-non-spesis 0.8 mmol/l (0.6-1.4)
[2018-10-28 13:16] LABS: INR 1.5 (0.9-1.1); PTT Activated 37.2 sec (21.0-31.4); Prothrombin Time 15.2 sec (9.3-11.0)
--- NOTE | 2018-10-28 13:21 | W.ED.GENAD ---
Discharge Plan Disposition Patient Disposition: [facility] INPATIENT Condition: Improving Discharge Details Chief Complaint: Fever Clinical Impression: Acquired immunocompromised state, Sepsis, Hypotension Admit Date/Time: 10/28/18 18:35 Admit Provider: Riley Christopher Attending Provider: Riley Christopher Primary Care Provider: Nader Dobson ED Provider: Michelet Asencio Discharge Data Discharge Date/Time-TO BE ENTERED AT DEPARTURE: 10/28/18 20:28 Medical Decision Making Upon my evaluation, this patient had a high probability of imminent or life-threatening deterioration, which required my direct attention, intervention, and personal management. I have personally provided 45 minutes of critical care time exclusive of time spent on separately billable procedures. Time includes review of laboratory data, radiology results, discussion with consultants, and monitoring for potential decompensation. Interventions were performed as documented above. This is a 53-year-old female who presents today for evaluation of fever and malaise. She does have mild cough. She has a history of renal transplant x3, immunosuppression with Prograf, Coumadin use for hypercoagulability, and history of vancomycin-resistant enterococcus. She does have a neurogenic bladder and so she is often has a Noriega. She is currently on Cefpodoxime 200 mg twice daily based on culture results her last visit. She presents today with a fever of a T-max of 101. Exam demonstrates no significant concerning lung sounds, no clinical evidence of meningitis, no abdominal tenderness. Urine is clear. Because of her immunosuppression she certainly is at risk for Bacteremia and sepsis. No focal signs of infectious source at this time. We will start cefepime. Evaluate for significant infectious etiology. 6:30 PM Patient's laboratory work-up is returned, and her work-up is notably benign, no white count, no significant left shift, mild lymphopenia. Electrolytes are relatively benign, renal function stable, calcium 8.2. Procalcitonin less than 0.1, lactate 0.8. Urinalysis shows no evidence of significant infection, no significant casts. Patient was initially doing very well, blood pressure and heart rate remained stable, however she took a sudden medical turn, and her blood pressure went from the 100s in the 120s to 81 systolic. Clinically the patient still looks the same, but blood pressure upon multiple rechecks was consistently low. 1 L fluid bolus was started and administered. We did contact Dr. Mina discussed the case with he and his ICU team, and transfer process was started. However when I did go and discussed this with the patient, the patient and family made it exquisitely clear they do not want to be transferred to a tertiary care facility, in particular [facility]. The request to stay here at [facility]. They are also requesting to speak with her Palliative care provider in regards to all of this. I made it very clear to the patient and family that the specialist available at [facility] are certainly integral in her current care and management, and would be significantly resource limited if she was kept here. Patient and family understand this, as well as the potential medical implications of this. Additionally with the patient's low blood pressure I did discuss potential need for central line and pressors, however at this time both the family and patient would like to hold off on any central line, and stick with fluids and if necessary dopamine peripherally. I also discussed that this may not be ideal for the patient, and not having a central line would certainly limit our options, again patient family also understand this, and the potential medical implication. After these discussions, palliative care did come and discussed the case with the patient, and the patient would like to hold off on hospice care at this time but would like to limit aggressive medical intervention. She still states clearly that she would like to stay here, and does not want to be transferred at all to another tertiary facility. She understands how this does limit her care. Additionally she would like to continue to hold off on central line, and stick with just peripheral resuscitation. After 1 L of normal saline the patient's blood pressure came back to the low 100 systolic. She remained stable here. She states that she feels much better. Respecting the patient's wishes, and with the patient understanding the implications of her choices the patient will be admitted here. I discussed the case with Dr. Christopher, he agrees with the plan. I have extensively reviewed the treatment plan with the patient. I have addressed all patient concerns at this time. I have also discussed the plan with the admitting physician and they agree with the current assessment and plan and have agreed to assume responsibility for the patient. All parties demonstrate verbal understanding and agreement with our assessment and plan at this time. Exam(s) a RAD:XR chest 2V PA & lateral SYMPTOM/DIAGNOSIS: COUGH, FEVER, IMMUNOCOMPROMISED AP AND LATERAL CHEST: Comparison is made with 10/19/18. The heart is again noted to be grossly enlarged. Sternal wires and left axillary stent are again noted. There are underlying interstitial changes which appear chronic. The previous exam shows some evidence of CHF. This appears less prominent when compared with the previous exam. No definite focal infiltrate is seen. IMPRESSION: Cardiomegaly and question of mild pulmonary edema. There has been some improvement when compared with the previous exam. No focal infiltrates are seen. Ordered By: Michelet Asencio DO [facility] General Date/Time Provider Initiated Documentation: 10/28/18 12:25. [facility] Narrative: This is a 53-year-old female with a past medical history of vancomycin-resistant enterococcus, hypercoagulation requiring Coumadin use, kidney transplant x3, on triple immunosuppression with Prograf, as well as a neurogenic bladder currently on Cefpodoxime 200 mg twice daily. She was recently admitted for urinary tract infection, she was just discharged on 10/23/2018 with Cefpodoxime. Patient and family state that the patient has had notable malaise since yesterday, and developed a fever this morning with a T-max of 101. She has taken Tylenol for this. She denies any abdominal pain, nausea vomiting or diarrhea. She does admit to a mild cough but denies any chest pain, chest pressure, chest heaviness, or chest tightness. She denies any rash, or ulcers. She denies any burning with urination. She does have a Noriega catheter in place. She denies any headache or neck pain or neck stiffness. The patient does state that she has been taking the antibiotic since discharge, however it is not on her home medication list that we can appreciate. Patient denies any other complaints at this time. No other modifying factors. Related Data Home Medications Medication Instructions Recorded Confirmed acetaminophen [Tylenol] 650 mg PO PRN 08/15/13 10/28/18 alendronate 70 mg PO DIRECTED 08/15/13 10/28/18 levetiracetam [Keppra] 1,500 mg PO BID 08/15/13 10/28/18 Nii Protect 1 applic TOPICAL . DIRECTED PRN 08/04/18 10/19/18 docusate sodium 100 mg PO DAILY PRN 08/04/18 10/28/18 polyethylene glycol 3350 [Miralax] 17 g PO DAILY PRN 08/04/18 10/19/18 cetirizine 10 mg PO DAILY PRN 10/19/18 10/28/18 citalopram 20 mg PO DAILY 10/19/18 10/19/18 esomeprazole magnesium [Nexium] 40 mg PO DAILY 10/19/18 10/19/18 guaifenesin [Tussin] 200 mg PO Q4H PRN 10/19/18 10/19/18 hydrocortisone 1 applic TOPICAL BID-QID PRN 10/19/18 10/19/18 mycophenolate mofetil 250 mg PO BID 10/19/18 10/19/18 prednisone 5 mg PO Q OTHER DAY 10/19/18 10/19/18 tacrolimus [Prograf] 2 mg PO Q12H 10/19/18 10/19/18 warfarin 5 mg PO DAILY 10/19/18 10/19/18 cefpodoxime 200 mg PO BID #20 tab 10/23/18 furosemide 20 mg PO BID@0830,1600 #60 tab 10/23/18 10/28/18 lidocaine [Lidoderm] 1 patch TOPICAL DAILY@1800 #14 ea 10/23/18 nystatin 0 g TOPICAL BID #0 g 10/23/18 tramadol 25 - 50 mg PO Q8H PRN PRN #12 tab 10/23/18 10/28/18 tramadol 50 mg PO HS #0 tab 10/23/18 10/28/18 Previous Rx's Medication Instructions Recorded cefpodoxime 200 mg PO BID #20 tab 10/23/18 furosemide 20 mg PO BID@0830,1600 #60 tab 10/23/18 lidocaine [Lidoderm] 1 patch TOPICAL DAILY@1800 #14 ea 10/23/18 nystatin 0 g TOPICAL BID #0 g 10/23/18 tramadol 25 - 50 mg PO Q8H PRN PRN #12 tab 10/23/18 tramadol 50 mg PO HS #0 tab 10/23/18 Allergies Allergy/AdvReac Type Severity Reaction Status Date / Time codeine Allergy Unverified 10/19/18 13:53 divalproex sodium Allergy Unverified 10/19/18 13:53 [From Depakote] povidone-iodine AdvReac Skin Rash Unverified 10/19/18 13:53 [From Betadine] soap [From Betadine] AdvReac Skin Rash Unverified 10/19/18 13:53 General Stated Complaint: Fever AD: 3 Review of Systems Review of Systems All systems reviewed & are unremarkable except as noted in HPI and below PFSH Medical History Chronic anticoagulation Chronic kidney disease Convulsions Hyperparathyroidism Neurogenic bladder Osteoporosis Peripheral neuropathy Protein S deficiency TBI (traumatic brain injury) Surgical History Colonoscopy - MAC (02/11/15) Fistula creation Renal Transplant Social History Smoking/Tobacco Use Status: Never Alcohol Intake: never Drug use: Never Substance use type: does not use Do you feel safe at home: Yes Do you feel safe in your relationship?: Yes Additional Social history: Lives in [facility] in [place]. Has [facility] care there as well. Exam Narrative Exam Narrative: 1.Const: Well-nourished, Well-developed, appearing stated age 2.Eyes: PERRL, no conjunctival injection, and symmetrical lids. 3.ENT: Atraumatic external nose and ears. Moist MM. Neck: Symmetric, trachea midline, No thyromegaly. Patient demonstrates good movement of cervical neck. There is no nuchal rigidity, no nuchal tenderness. Patient is able to flex the neck without any difficulty or significant pain. Negative Kernig's and Brudzinski sign. 4.CVS: +S1/S2, No murmurs or gallops. Peripheral pulses 2+ and equal in all extremities. Brisk capillary refill in all extremities. 5.RESP: Unlabored respiratory effort. Clear to auscultation bilaterally. No wheezes rales or rhonchi 6.GI: Soft, Nontender/Nondistended, No hepatosplenomegaly. No guarding or rebound. Noriega catheter is in place. No evidence of an acute surgical abdomen. 7.MSK: Normocephalic/Atraumatic, Extremities w/o deformity or ttp No cyanosis or clubbing, Normal movement of all extremities 8.Skin: Warm, Dry. No rashes or lesions. 9.Neuro: business relations manager II-XII grossly intact. Sensation grossly intact, no focal neurologic deficits. 10.Psych: (AAO) x3. Appropriate mood and affect Course Vital Signs Temperature 37.8 C H 10/28/18 12:26 Pulse 88 10/28/18 12:26 Respiratory Rate 18 10/28/18 12:26 Blood Pressure 120/56 L 10/28/18 12:26 Pulse Oximetry 93 L 10/28/18 12:26 Temperature 37.8 C H 10/28/18 12:26 Temperature Source Oral 10/28/18 12:26 Pulse 88 10/28/18 12:26 Respiratory Rate 18 10/28/18 12:26 Respiratory Effort Non-Labored 10/28/18 12:46 Blood Pressure 120/56 L 10/28/18 12:26 Blood Pressure Position Sitting 10/28/18 12:26 Pulse Oximetry 93 L 10/28/18 12:26 Oxygen Delivery Method Room Air 10/28/18 12:26 Oxygen Flow Rate 0 10/28/18 12:26 Pain Level 0 10/28/18 12:26 Lab/Test Results Lab/Test Results: 10/28/18 13:13 Nasopharynx Influenza Types A,B Antigen - Pending 10/28/18 13:00 Blood Blood Culture - Pending 10/28/18 12:40 Blood Blood Culture - Pending Laboratory Tests Range/Units 10/28/18 10/28/18 10/28/18 12:40 12:40 12:40 WBC (4.4-10.8) k/cumm 6.36 RBC (4.00-5.20) m/cumm 4.04 Hgb (12.0-15.5) g/dL 11.2 L Hct (36.0-46.0) % 33.1 L MCV (80-95) fL 81.9 MCH (27.0-33.0) pg 27.7 MCHC (32.0-36.0) g/dL 33.8 RDW (11.7-14.6) % 14.2 Plt Count (130-400) x1000/uL 281 MPV (8.0-11.0) fL 8.5 Immature Gran % 0.9 Neutrophils % 76.0 Lymphocytes % 10.2 Monocytes % 7.4 Eosinophils % 5.3 Basophils % 0.2 Absolute Neutrophils (1.2-6.7) k/cumm 4.83 Absolute Lymphocytes (1.2-3.4) k/cumm 0.65 L Absolute Monocytes (0.11-0.7) k/cumm 0.47 Absolute Eosinophils (0.0-0.7) k/cumm 0.34 Absolute Basophils (0.0-0.2) k/cumm 0.01 PT (9.3-11.0) sec 15.2 H INR (0.9-1.1) 1.5 H APTT (21.0-31.4) sec 37.2 H Lactate (0.6-1.4) mmol/l 0.8 Procalcitonin Cancelled
--- NOTE | 2018-10-28 13:26 | ED.GENADUL_ITS ---
Discharge Plan Disposition Patient Disposition: [facility] INPATIENT Condition: Improving Discharge Details Chief Complaint: Fever Clinical Impression: Acquired immunocompromised state, Sepsis, Hypotension Admit Date/Time: 10/28/18 18:35 Admit Provider: Riley Christopher Attending Provider: Riley Christopher Primary Care Provider: Nader Dobson ED Provider: Michelet Asencio Discharge Data Discharge Date/Time-TO BE ENTERED AT DEPARTURE: 10/28/18 20:28 Medical Decision Making Upon my evaluation, this patient had a high probability of imminent or life- threatening deterioration, which required my direct attention, intervention, and personal management. I have personally provided 45 minutes of critical care time exclusive of time spent on separately billable procedures. Time includes review of laboratory data, radiology results, discussion with consultants, and monitoring for potential decompensation. Interventions were performed as documented above. This is a 53-year-old female who presents today for evaluation of feve r and malaise. She does have mild cough. She has a history of renal transplant x3, immunosuppression with Prograf, Coumadin use for hypercoagulability, and history of vancomycin-resistant enterococcus. She does have a neurogenic bladder and so she is often has a Noriega. She is currently on Cefpodoxime 200 mg twice daily based on culture results her last visit. She presents today with a fever of a T-max of 101. Exam demonstrates no significant concerning lung sounds, no clinical evidence of meningitis, no abdominal tenderness. Urine is clear. Because of her immunosuppression she certainly is at risk for Bacteremia and sepsis. No focal signs of infectious source at this time. We will start cefepime. Evaluate for significant infectious etiology. 6:30 PM Patient's laboratory work-up is returned, and her work-up is notably benign, no white count, no significant left shift, mild lymphopenia. Electrolytes are relatively benign, renal function stable, calcium 8.2. Procalcitonin less than 0.1, lactate 0.8. Urinalysis shows no evidence of significant infection, no significant casts. Patient was initially doing very well, blood pressure and heart rate remained stable, however she took a sudden medical turn, and her blood pressure went from the 100s in the 120s to 81 systolic. Clinically the patient still looks the same, but blood pressure upon multiple rechecks was consistently low. 1 L fluid bolus was started and administered. We did contact Dr. Mina discussed the case with he and his ICU team, and transfer process was started. However when I did go and discussed this with the patient, the patient and family made it exquisitely clear they do not want to be transferred to a tertiary care facility, in particular [facility]. The request to stay here at [facility]. They are also requesting to speak with her Palliative care provider in regards to all of this. I made it very clear to the patient and family that the specialist available at [facility] are certainly integral in her current care and management, and would be significantly resource limited if she was kept here. Patient and family understand this, as well as the potential medical implications of this. Additionally with the patient's low blood pressure I did discuss potential need for central line and pressors, however at this time both the family and patient would like to hold off on any central line, and stick with fluids and if necessary dopamine peripherally. I also discussed that this may not be ideal for the patient, and not having a central line would certainly limit our options, again patient family also understand this, and the potential medical implication. After these discussions, palliative care did come and discussed the case with the patient, and the patient would like to hold off on hospice care at this time but would like to limit aggressive medical intervention. She still states clearly that she would like to stay here, and does not want to be transferred at all to another tertiary facility. She understands how this does limit her care. Additionally she would like to continue to hold off on central line, and stick with just peripheral resuscitation. After 1 L of normal saline the patient's blood pressure came back to the low 100 systolic. She remained stable here. She states that she feels much better. Respecting the patient's wishes, and with the patient understanding the implications of her choices the patient will be admitted here. I discussed the case with Dr. Christopher, he agrees with the plan. I have extensively reviewed the treatment plan with the patient. I have addressed all patient concerns at this time. I have also discussed the plan with the admitting physician and they agree with the current assessment and plan and have agreed to assume responsibility for the patient. All parties demonstrate verbal understanding and agreement with our assessment and plan at this time. Exam(s) a RAD:XR chest 2V PA & lateral SYMPTOM/DIAGNOSIS: COUGH, FEVER, IMMUNOCOMPROMISED AP AND LATERAL CHEST: Comparison is made with 10/19/18. The heart is again noted to be grossly enlarged. Sternal wires and left axillary stent are again noted. There are underlying interstitial changes which appear chronic. The previous exam shows some evidence of CHF. This appears less prominent when compared with the previous exam. No definite focal infiltrate is seen. IMPRESSION: Cardiomegaly and question of mild pulmonary edema. There has been some improvement when compared with the previous exam. No focal infiltrates are seen. Ordered By: Michelet Asencio DO [facility] General Date/Time Provider Initiated Documentation: 10/28/18 12:25 . [facility] Narrative: This is a 53-year-old female with a past medical history of vancomycin-resistant enterococcus, hypercoagulation requiring Coumadin use, kidney transplant x3, on triple immunosuppression with Prograf, as well as a neurogenic bladder currently on Cefpodoxime 200 mg twice daily. She was recently admitted for urinary tract infection, she was just discharged on with Cefpodoxime. Patient and family state that the patient has had notable malaise since yesterday, and developed a fever this morning with a T-max of 101. She has taken Tylenol for this. She denies any abdominal pain, nausea vomiting or diarrhea. She does admit to a mild cough but denies any chest pain, chest pressure, chest heaviness, or chest tightness. She denies any rash, or ul cers. She denies any burning with urination. She does have a Noriega catheter in place. She denies any headache or neck pain or neck stiffness. The patient does state that she has been taking the antibiotic since discharge, however it is not on her home medication list that we can appreciate. Patient denies any other complaints at this time. No other modifying factors. Related Data Home Medications Medication Instructions Recorded Confirmed acetaminophen [Tylenol] 650 mg PO PRN 08/15/13 10/28/18 alendronate 70 mg PO DIRECTED 08/15/13 10/28/18 levetiracetam [Keppra] 1,500 mg PO BID 08/15/13 10/28/18 Nii Protect 1 applic TOPICAL . DIRECTED PRN 08/04/18 10/19/18 docusate sodium 100 mg PO DAILY PRN 08/04/18 10/28/18 polyethylene glycol 3350 [Miralax] 17 g PO DAILY PRN 08/04/18 10/19/18 cetirizine 10 mg PO DAILY PRN 10/19/18 10/28/18 citalopram 20 mg PO DAILY 10/19/18 10/19/18 esomeprazole magnesium [Nexium] 40 mg PO DAILY 10/19/18 10/19/18 guaifenesin [Tussin] 200 mg PO Q4H PRN 10/19/18 10/19/18 hydrocortisone 1 applic TOPICAL BID-QID PRN 10/19/18 10/19/18 mycophenolate mofetil 250 mg PO BID 10/19/18 10/19/18 prednisone 5 mg PO Q OTHER DAY 10/19/18 10/19/18 tacrolimus [Prograf] 2 mg PO Q12H 10/19/18 10/19/18 warfarin 5 mg PO DAILY 10/19/18 10/19/18 cefpodoxime 200 mg PO BID #20 tab 10/23/18 furosemide 20 mg PO BID@0830,1600 #60 tab 10/23/18 10/28/18 lidocaine [Lidoderm] 1 patch TOPICAL DAILY@1800 #14 ea 10/23/18 nystatin 0 g TOPICAL BID #0 g 10/23/18 tramadol 25 - 50 mg PO Q8H PRN PRN #12 tab 10/23/18 10/28/18 tramadol 50 mg PO HS #0 tab 10/23/18 10/28/18 Previous Rx's Medication Instructions Recorded cefpodoxime 200 mg PO BID #20 tab 10/23/18 furosemide 20 mg PO BID@0830,1600 #60 tab 10/23/18 lidocaine [Lidoderm] 1 patch TOPICAL DAILY@1800 #14 ea 10/23/18 nystatin 0 g TOPICAL BID #0 g 10/23/18 tramadol 25 - 50 mg PO Q8H PRN PRN #12 tab 10/23/18 tramadol 50 mg PO HS #0 tab 10/23/18 Allergies Allergy/AdvReac Type Severity Reaction Status Date / Time codeine Allergy Unverified 10/19/18 13:53 divalproex sodium Allergy Unverified 10/19/18 13:53 [From Depakote] povidone-iodine AdvReac Skin Rash Unverified 10/19/18 13:53 [From Betadine] soap [From Betadine] AdvReac Skin Rash Unverified 10/19/18 13:53 General Stated Complaint: Fever AD: 3 Review of Systems Review of Systems All systems reviewed & are unremarkable except as noted in HPI and below PFSH Medical History Chronic anticoagulation Chronic kidney disease Convulsions Hyperparathyroidism Neurogenic bladder Osteoporosis Peripheral neuropathy Protein S deficiency TBI (traumatic brain injury) Surgical History Colonoscopy - MAC (02/11/15) Fistula creation Renal Transplant Social History Smoking/Tobacco Use Status: Never Alcohol Intake: never Drug use: Never Substance use type: does not use Do you feel safe at home: Yes Do you feel safe in your relationship?: Yes Additional Social history: Lives in halfway in [place]. Has VNA care there as well. Exam Narrative Exam Narrative: 1.Const: Well-nourished, Well-developed, appearing stated age 2.Eyes: PERRL, no conjunctival injection, and symmetrical lids. 3.ENT: Atraumatic external nose and ears. Moist MM. Neck: Symmetric, trachea midline, No thyromegaly. Patient demonstrates good movement of cervical neck. There is no nuchal rigidity, no nuchal tenderness. Patient is able to flex the neck without any difficulty or significant pain. Negative Kernig's and Brudzinski sign. 4.CVS: +S1/S2, No murmurs or gallops. Peripheral pulses 2+ and equal in all extremities. Brisk capillary refill in all extremities. 5.RESP: Unlabored respiratory effort. Clear to auscultation bilaterally. No wheezes rales or rhonchi 6.GI: Soft, Nontender/Nondistended, No hepatosplenomegaly. No guarding or rebound. Noriega catheter is in place. No evidence of an acute surgical abdomen. 7.MSK: Normocephalic/Atraumatic, Extremities w/o deformity or ttp No cyanosis or clubbing, Normal movement of all extremities 8.Skin: Warm, Dry. No rashes or lesions. 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 Sensation grossly intact, no focal neurologic deficits. 10.Psych: (AAO) x3. Appropriate mood and affect Course Vital Signs Temperature 37.8 C H 10/28/18 12:26 Pulse 88 10/28/18 12:26 Respiratory Rate 18 10/28/18 12:26 Blood Pressure 120/56 L 10/28/18 12:26 Pulse Oximetry 93 L 10/28/18 12:26 Temperature 37.8 C H 10/28/18 12:26 Temperature Source Oral 10/28/18 12:26 Pulse 88 10/28/18 12:26 Respiratory Rate 18 10/28/18 12:26 Respiratory Effort Non-Labored 10/28/18 12:46 Blood Pressure 120/56 L 10/28/18 12:26 Blood Pressure Position Sitting 10/28/18 12:26 Pulse Oximetry 93 L 10/28/18 12:26 Oxygen Delivery Method Room Air 10/28/18 12:26 Oxygen Flow Rate 0 10/28/18 12:26 Pain Level 0 10/28/18 12:26 Lab/Test Results Lab/Test Results: 10/28/18 13:13 Nasopharynx Influenza Types A,B Antigen - Pending 10/28/18 13:00 Blood Blood Culture - Pending 10/28/18 12:40 Blood Blood Culture - Pending Laboratory Tests Range/Units 10/28/18 10/28/18 10/28/18 12:40 12:40 12:40 WBC (4.4-10.8) k/cumm 6.36 RBC (4.00-5.20) m/cumm 4.04 Hgb (12.0-15.5) g/dL 11.2 L Hct (36.0-46.0) % 33.1 L MCV (80-95) fL 81.9 MCH (27.0-33.0) pg 27.7 MCHC (32.0-36.0) g/dL 33.8 RDW (11.7-14.6) % 14.2 Plt Count (130-400) x1000/uL 281 MPV (8.0-11.0) fL 8.5 Immature Gran % 0.9 Neutrophils % 76.0 Lymphocytes % 10.2 Monocytes % 7.4 Eosinophils % 5.3 Basophils % 0.2 Absolute Neutrophils (1.2-6.7) k/cumm 4.83 Absolute Lymphocytes (1.2-3.4) k/cumm 0.65 L Absolute Monocytes (0.11-0.7) k/cumm 0.47 Absolute Eosinophils (0.0-0.7) k/cumm 0.34 Absolute Basophils (0.0-0.2) k/cumm 0.01 PT (9.3-11.0) sec 15.2 H INR (0.9-1.1) 1.5 H APTT (21.0-31.4) sec 37.2 H Lactate (0.6-1.4) mmol/l 0.8 Procalcitonin Cancelled
[2018-10-28 13:32] LABS: ALT 32 U/L (12-78); AST 32 U/L (15-37); Albumin 2.7 g/dL (3.4-5.0); Alkaline Phosphatase 57 U/L (46-116); Anion Gap 11.6 mmol/L (3-11); BUN 16 mg/dL (7-18); Bilirubin, Total 0.9 mg/dL (0.2-1.0); CO2 25.4 mmol/L (21.0-32.0); CREATININE 0.66 mg/dL (0.55-1.02); Calcium 8.2 mg/dL (8.5-10.1); Chloride 95 mmol/L (98-107); Glucose 100 mg/dL (70-100); Sodium 132 mmol/L (136-145); Total Protein 6.8 g/dL (6.4-8.2)
[2018-10-28 13:34] LABS: Bilirubin Negative (Negative); Blood Trace-intact (Negative); Clarity Clear (Clear); Glucose Negative (Negative); Ketones Negative (Negative); Leukocyte Esterase Negative (Negative); Nitrite Negative (Negative); Specific Gravity 1.015 (1.005-1.025); Urobilinogen 0.2 EU/dL (Up TO 0.2); pH 8.5 (5-8)
[2018-10-28 13:37] LABS: Procalcitonin < 0.1 ng/mL
[2018-10-28 13:42] LABS: Bacteria Rare HPF (Negative); C & S Indicated? C&S Done As Ordered; Casts Negative LPF (Negative); Crystals Negative HPF (Negative); Epithelial Cells Rare HPF (Negative); Mucus Negative (Negative); WBC 0-2 HPF (0-5)
[2018-10-28] MEDS: CEFEPIME 2 GM in Normal Saline 100 ML IVPB (14:02)
[2018-10-28] MEDS: levoFLOXacin 750 MG/150 ML BAG 100 MG IVPB (15:00)
[2018-10-28] MEDS: Normal Saline 1,000 ML 1000 ML IV (15:20)
--- NOTE | 2018-10-28 17:24 | W.PALLCONSUL ---
Date of service: 10/28/18 Time of Service: 17:25 History of Present Illness Narrative: Darlene is a 53 year old woman, s/p TBI and renal transplant times 3. She recently was hospitalized at [facility] for CHF and UTI. She was home for about a week when she became increasing fatigued and ran fevers of over 100. Due to her complicated health history, she was advised by her PCP to come to the ER. In the Er she had stable vitals and reassurring labs. Unfortunately her blood pressure became soft. [facility] was consulted. Fluids were judiously given due to her recent CHF. The family asked to talk with me as I had been involved last admission. They were torn between staying at [facility] vs transfer to [facility]. Dr Asencio called me for a Palliative Consult to help with making these decisions. Nilsa as usual agrees with just about anything her Sister Nicol or myself say or bring up. She says she has not felt good for a long time. She is very tired. She is really tired of hospitals. She would just rather be home and not keep coming back and forth. Nicol is concerned because of Stacy's high degree of discomfort. She would like to see Nilsa more comfortable and have less problems associated with the her activities of daily living. New sentence Nicol is also very concerned that the emphasis has been on Stacy's kidney not on her feet. For that reason Nicol wants her to stay at [facility]. Consults Consult date: 10/28/18 Requesting physician: Michelet Asencio Assessment and Plan (1) New onset of congestive heart failure: Current visit: No Status: Acute (2) Fever: Current visit: Yes Status: Acute (3) S/P kidney transplant: Current visit: No Status: Acute Discussion regarding transfer vs staying at [facility]: presently BP is rising. Labs are stable . There does not appear to be an immediate need to transfer. She will be admitted to [facility] Discussion regarding pressors and central lines: Darlene has said that she wants her sister Candie to make this decision. We spoke for some time regarding the implications of both and the benefits. Discussion regarding next steps: family is ready to consider [facility] placement if they would accept Darlene. I also broached the subject of Hospice. Darlene repeatedly stated she was sick of being sick and just wants to go home. This will take more discussion This document was created by [employer] and may contain grammatical and translation errors. I have spent more than 50% of time in counseling with this patient. Review of Systems Constitutional Reports anorexia, Reports fatigue, Reports fever(s) and Reports malaise Cardiovascular Denies chest pain, Denies diaphoresis, Denies syncope, Denies rapid heart rate and Reports dyspnea Respiratory Denies chest congestion, Denies cough and Reports dyspnea Gastrointestinal Reports system reviewed and no additional complaints, except as docu Genitourinary Reports urinary hesitancy Musculoskeletal Reports myalgias and Reports arthralgias Comments: hip pain Neurologic Denies syncope Psychiatric Comments: Status post TBI. Has a simple approach to life Endocrine Reports fatigue [facility] Medical History Chronic anticoagulation Chronic kidney disease Convulsions Hyperparathyroidism Neurogenic bladder Osteoporosis Peripheral neuropathy Protein S deficiency TBI (traumatic brain injury) Surgical History Colonoscopy - MAC (02/11/15) Fistula creation Renal Transplant Social History Smoking/Tobacco Use Status: Never Alcohol Intake: never Drug use: Never Substance use type: does not use Do you feel safe at home: Yes Do you feel safe in your relationship?: Yes Additional Social history: Lives in assisted in [place]. Has VNA care there as well. Exam Narrative Exam Narrative: Stacy is lying on the gurney. She is tired and closes her eyes at times. She tries to engage in conversation, but many times does not follow it. Const General: cooperative and frail appearing Nutritional Appearance: average body habitus Orientation: oriented x3 Eyes General: appearance normal, both eyes and all related structures Resp Effort & Inspection: normal respiratory effort and able to speak in complete sentences Auscultation: crackles bilaterally Psych Appearance: other (For a) Mental Status: other (Baseline) Speech and Movement: speech clear Mood: anxious mood, dysthymic mood and other (Baseline) Affect: sad Attitude: cooperative Thought Process: other Results Last Vital Signs Temp 100.1 F H 10/28/18 12:26 Pulse 67 10/28/18 17:01 Resp 18 10/28/18 12:26 BP 100/47 L 10/28/18 17:01 Pulse Ox 92 L 10/28/18 17:01 Labs : 10/29/18 07:50 10/29/18 06:20 Laboratory Results - last 24 hr 10/28/18 10/28/18 10/28/18 12:40 12:40 12:40 WBC 6.36 RBC 4.04 Hgb 11.2 L Hct 33.1 L MCV 81.9 MCH 27.7 MCHC 33.8 RDW 14.2 Plt Count 281 MPV 8.5 Immature Gran % 0.9 Neutrophils % 76.0 Lymphocytes % 10.2 Monocytes % 7.4 Eosinophils % 5.3 Basophils % 0.2 Absolute Neutrophils 4.83 Absolute Lymphocytes 0.65 L Absolute Monocytes 0.47 Absolute Eosinophils 0.34 Absolute Basophils 0.01 PT INR APTT Sodium 132 L Potassium 4.0 Chloride 95 L Carbon Dioxide 25.4 Anion Gap 11.6 H BUN 16 Creatinine 0.66 Estimated GFR/1.73 m2 >= 60.00 Glucose 100 Lactate 0.8 Calcium 8.2 L Total Bilirubin 0.9 AST 32 ALT 32 Alkaline Phosphatase 57 Total Protein 6.8 Albumin 2.7 L Procalcitonin Urine Color Urine Clarity Urine pH Ur Specific Waldron Urine Protein Urine Ketones Urine Blood Urine Nitrite Urine Bilirubin Urine Urobilinogen Ur Leukocyte Esterase Urine RBC Urine WBC Ur Epithelial Cells Urine Crystals Urine Bacteria Urine Casts Urine Mucus Ur Culture Indicated? Urine Glucose 10/28/18 10/28/18 10/28/18 12:40 12:40 13:05 WBC RBC Hgb Hct MCV MCH MCHC RDW Plt Count MPV Immature Gran % Neutrophils % Lymphocytes % Monocytes % Eosinophils % Basophils % Absolute Neutrophils Absolute Lymphocytes Absolute Monocytes Absolute Eosinophils Absolute Basophils PT 15.2 H INR 1.5 H APTT 37.2 H Sodium Potassium Chloride Carbon Dioxide Anion Gap BUN Creatinine Estimated GFR/1.73 m2 Glucose Lactate Calcium Total Bilirubin AST ALT Alkaline Phosphatase Total Protein Albumin Procalcitonin Cancelled < 0.1 Urine Color Yellow Urine Clarity Clear Urine pH 8.5 H Ur Specific Waldron 1.015 Urine Protein Negative Urine Ketones Negative Urine Blood Trace-intact H Urine Nitrite Negative Urine Bilirubin Negative Urine Urobilinogen 0.2 Ur Leukocyte Esterase Negative Urine RBC 3-5 H Urine WBC 0-2 Ur Epithelial Cells Rare Urine Crystals Negative Urine Bacteria Rare Urine Casts Negative Urine Mucus Negative Ur Culture Indicated? C&s done as ordered Urine Glucose Negative 10/28/18 13:55 WBC RBC Hgb Hct MCV MCH MCHC RDW Plt Count MPV Immature Gran % Neutrophils % Lymphocytes % Monocytes % Eosinophils % Basophils % Absolute Neutrophils Absolute Lymphocytes Absolute Monocytes Absolute Eosinophils Absolute Basophils PT INR APTT Sodium Potassium Chloride Carbon Dioxide Anion Gap BUN Creatinine Estimated GFR/1.73 m2 Glucose Lactate Calcium Total Bilirubin AST ALT Alkaline Phosphatase Total Protein Albumin Procalcitonin Urine Color Cancelled Urine Clarity Cancelled Urine pH Cancelled Ur Specific Waldron Cancelled Urine Protein Cancelled Urine Ketones Cancelled Urine Blood Cancelled Urine Nitrite Cancelled Urine Bilirubin Cancelled Urine Urobilinogen Cancelled Ur Leukocyte Esterase Cancelled Urine RBC Urine WBC Ur Epithelial Cells Urine Crystals Urine Bacteria Urine Casts Urine Mucus Ur Culture Indicated? Urine Glucose Cancelled
--- NOTE | 2018-10-28 17:36 | PCNE_ITS ---
Date of service: 10/28/18 Time of Service: 17:25 History of Present Illness Narrative: Darlene is a 53 year old woman, s/p TBI and renal transplant times 3. She recently was hospitalized at [facility] for CHF and UTI. She was home for about a week when she became increasing fatigued and ran fevers of over 100. Due to her complicated health history, she was advised by her PCP to come to the ER. In the Er she had stable vitals and reassurring labs. Unfortunately her blood pressure became soft. [facility] was consulted. Fluids were judiously given due to her recent CHF. The family asked to talk with me as I had been involved last admission. They were torn between staying at [facility] vs transfer to [facility]. Dr Asencio called me for a Palliative Consult to help with making these decisions. Nilsa as usual agrees with just about anything her Sister Nicol or myself say or bring up. She says she has not felt good for a long time. She is very tired. She is really tired of hospitals. She would just rather be home and not keep coming back and forth. Nicol is concerned because of Stacy's high degree of discomfort. She would like to see Nilsa more comfortable and have less problems associated with the her activities of daily living. New sentence Nicol is also very concerned that the emphasis has been on Stacy's kidney not on her feet. For that reason Nicol wants her to stay at [facility]. Consults Consult date: 10/28/18 Requesting physician: Michelet Asencio Assessment and Plan (1) New onset of congestive heart failure: Current visit: No Status: Acute (2) Fever: Current visit: Yes Status: Acute (3) S/P kidney transplant: Current visit: No Status: Acute Discussion regarding transfer vs staying at [facility]: presently BP is rising. Labs are stable . There does not appear to be an immediate need to transfer. She will be admitted to [facility] Discussion regarding pressors and central lines: Darlene has said that she wants her sister Candie to make this decision. We spoke for some time regarding the implications of both and the benefits. Discussion regarding next steps: family is ready to consider [facility] placement if they would accept Darlene. I also broached the subject of Hospice. Darlene repeatedly stated she was sick of being sick and just wants to go home. This will take more discussion This document was created by [employer] and may contain grammatical and translation errors. I have spent more than 50% of time in counseling with this patient. Review of Systems Constitutional Reports anorexia, Reports fatigue, Reports fever(s) and Reports malaise Cardiovascular Denies chest pain, Denies diaphoresis, Denies syncope, Denies rapid heart rate and Reports dyspnea Respiratory Denies chest congestion, Denies cough and Reports dyspnea Gastrointestinal Reports system reviewed and no additional complaints, except as docu Genitourinary Reports urinary hesitancy Musculoskeletal Reports myalgias and Reports arthralgias Comments: hip pain Neurologic Denies syncope Psychiatric Comments: Status post TBI. Has a simple approach to life Endocrine Reports fatigue [facility] Medical History Chronic anticoagulation Chronic kidney disease Convulsions Hyperparathyroidism Neurogenic bladder Osteoporosis Peripheral neuropathy Protein S deficiency TBI (traumatic brain injury) Surgical History Colonoscopy - MAC (02/11/15) Fistula creation Renal Transplant Social History Smoking/Tobacco Use Status: Never Alcohol Intake: never Drug use: Never Substance use type: does not use Do you feel safe at home: Yes Do you feel safe in your relationship?: Yes Additional Social history: Lives in [facility] in [place]. Has VNA care there as well. Exam Narrative Exam Narrative: Stacy is lying on the gurney. She is tired and closes her eyes at times. She tries to engage in conversation, but many times does not follow it. Const General: cooperative and frail appearing Nutritional Appearance: average body habitus Orientation: oriented x3 Eyes General: appearance normal, both eyes and all related structures Resp Effort & Inspection: normal respiratory effort and able to speak in complete sentences Auscultation: crackles bilaterally Psych Appearance: other (For a) Mental Status: other (Baseline) Speech and Movement: speech clear Mood: anxious mood, dysthymic mood and other (Baseline) Affect: sad Attitude: cooperative Thought Process: other Results Last Vital Signs Temp 100.1 F H 10/28/18 12:26 Pulse 67 10/28/18 17:01 Resp 18 10/28/18 12:26 BP 100/47 L 10/28/18 17:01 Pulse Ox 92 L 10/28/18 17:01 Labs : 10/29/18 07:50 10/29/18 06:20 Laboratory Results - last 24 hr 10/28/18 10/28/18 10/28/18 12:40 12:40 12:40 WBC 6.36 RBC 4.04 Hgb 11.2 L Hct 33.1 L MCV 81.9 MCH 27.7 MCHC 33.8 RDW 14.2 Plt Count 281 MPV 8.5 Immature Gran % 0.9 Neutrophils % 76.0 Lymphocytes % 10.2 Monocytes % 7.4 Eosinophils % 5.3 Basophils % 0.2 Absolute Neutrophils 4.83 Absolute Lymphocytes 0.65 L Absolute Monocytes 0.47 Absolute Eosinophils 0.34 Absolute Basophils 0.01 PT INR APTT Sodium 132 L Potassium 4.0 Chloride 95 L Carbon Dioxide 25.4 Anion Gap 11.6 H BUN 16 Creatinine 0.66 Estimated GFR/1.73 m2 >= 60.00 Glucose 100 Lactate 0.8 Calcium 8.2 L Total Bilirubin 0.9 AST 32 ALT 32 Alkaline Phosphatase 57 Total Protein 6.8 Albumin 2.7 L Procalcitonin Urine Color Urine Clarity Urine pH Ur Specific [place] Urine Protein Urine Ketones Urine Blood Urine Nitrite Urine Bilirubin Urine Urobilinogen Ur Leukocyte Esterase Urine RBC Urine WBC Ur Epithelial Cells Urine Crystals Urine Bacteria Urine Casts Urine Mucus Ur Culture Indicated? Urine Glucose 10/28/18 10/28/18 10/28/18 12:40 12:40 13:05 WBC RBC Hgb Hct MCV MCH MCHC RDW Plt Count MPV Immature Gran % Neutrophils % Lymphocytes % Monocytes % Eosinophils % Basophils % Absolute Neutrophils Absolute Lymphocytes Absolute Monocytes Absolute Eosinophils Absolute Basophils PT 15.2 H INR 1.5 H APTT 37.2 H Sodium Potassium Chloride Carbon Dioxide Anion Gap BUN Creatinine Estimated GFR/1.73 m2 Glucose Lactate Calcium Total Bilirubin AST ALT Alkaline Phosphatase Total Protein Albumin Procalcitonin Cancelled < 0.1 Urine Color Yellow Urine Clarity Clear Urine pH 8.5 H Ur Specific [place] 1.015 Urine Protein Negative Urine Ketones Negative Urine Blood Trace-intact H Urine Nitrite Negative Urine Bilirubin Negative Urine Urobilinogen 0.2 Ur Leukocyte Esterase Negative Urine RBC 3-5 H Urine WBC 0-2 Ur Epithelial Cells Rare Urine Crystals Negative Urine Bacteria Rare Urine Casts Negative Urine Mucus Negative Ur Culture Indicated? C&s done as ordered Urine Glucose Negative 10/28/18 13:55 WBC RBC Hgb Hct MCV MCH MCHC RDW Plt Count MPV Immature Gran % Neutrophils % Lymphocytes % Monocytes % Eosinophils % Basophils % Absolute Neutrophils Absolute Lymphocytes Absolute Monocytes Absolute Eosinophils Absolute Basophils PT INR APTT Sodium Potassium Chloride Carbon Dioxide Anion Gap BUN Creatinine Estimated GFR/1.73 m2 Glucose Lactate Calcium Total Bilirubin AST ALT Alkaline Phosphatase Total Protein Albumin Procalcitonin Urine Color Cancelled Urine Clarity Cancelled Urine pH Cancelled Ur Specific [place] Cancelled Urine Protein Cancelled Urine Ketones Cancelled Urine Blood Cancelled Urine Nitrite Cancelled Urine Bilirubin Cancelled Urine Urobilinogen Cancelled Ur Leukocyte Esterase Cancelled Urine RBC Urine WBC Ur Epithelial Cells Urine Crystals Urine Bacteria Urine Casts Urine Mucus Ur Culture Indicated? Urine Glucose Cancelled
--- NOTE | 2018-10-28 18:24 | W.PM.HP.N ---
Date of service: 10/28/18 Time of Service: 18:24 Assessment and Plan (1) Fever: Current visit: Yes Status: Acute Feverr. I would rate this as subacute at this point. No source evident. Given immunocompromised status may need to broaden imicrobiological nvestigation. For now agree with empiric antibiotics pending blood cultures. May be non-infectious as well. History of Present Illness Chief Complaint: fever Narrative: 53 female with h/o kidney transplant, here recently witth what is described as UTI (though I cannot locate u/a or cultures), d/rj on Cipro. Comes in today with what desccribes as ongoing fevers fro the past few weeks. Denies any specific or localizing symptoms otherwise. In ER temp 37.8 noted. Culturesd obtained and triple antibiotics started. While in ER had transient hypotension, responding to IVF. Says she feels pretty well at present. Review of Systems Review of Systems All systems reviewed & are unremarkable except as noted in HPI and below PFSH Medical History Chronic anticoagulation Chronic kidney disease Convulsions Hyperparathyroidism Neurogenic bladder Osteoporosis Peripheral neuropathy Protein S deficiency TBI (traumatic brain injury) Surgical History Colonoscopy - MAC (02/11/15) Fistula creation Renal Transplant Social History Smoking/Tobacco Use Status: Never Alcohol Intake: never Drug use: Never Substance use type: does not use Do you feel safe at home: Yes Do you feel safe in your relationship?: Yes Additional Social history: Lives in [facility] in [place]. Has VNA care there as well. Meds Home Medications Medication Instructions Recorded Confirmed Type acetaminophen [Tylenol] 650 mg PO PRN 08/15/13 10/28/18 History alendronate 70 mg PO DIRECTED 08/15/13 10/28/18 History levetiracetam [Keppra] 1,500 mg PO BID 08/15/13 10/28/18 History Nii Protect 1 applic TOPICAL . DIRECTED PRN 08/04/18 10/19/18 History docusate sodium 100 mg PO DAILY PRN 08/04/18 10/28/18 History polyethylene glycol 3350 [Miralax] 17 g PO DAILY PRN 08/04/18 10/19/18 History cetirizine 10 mg PO DAILY PRN 10/19/18 10/28/18 History citalopram 20 mg PO DAILY 10/19/18 10/19/18 History esomeprazole magnesium [Nexium] 40 mg PO DAILY 10/19/18 10/19/18 History guaifenesin [Tussin] 200 mg PO Q4H PRN 10/19/18 10/19/18 History hydrocortisone 1 applic TOPICAL BID-QID PRN 10/19/18 10/19/18 History mycophenolate mofetil 250 mg PO BID 10/19/18 10/19/18 History prednisone 5 mg PO Q OTHER DAY 10/19/18 10/19/18 History tacrolimus [Prograf] 2 mg PO Q12H 10/19/18 10/19/18 History warfarin 5 mg PO DAILY 10/19/18 10/19/18 History cefpodoxime 200 mg PO BID #20 tab 10/23/18 Rx furosemide 20 mg PO BID@0830,1600 #60 tab 10/23/18 10/28/18 Rx lidocaine [Lidoderm] 1 patch TOPICAL DAILY@1800 #14 ea 10/23/18 Rx nystatin 0 g TOPICAL BID #0 g 10/23/18 Rx tramadol 25 - 50 mg PO Q8H PRN PRN #12 tab 10/23/18 10/28/18 Rx tramadol 50 mg PO HS #0 tab 10/23/18 10/28/18 Rx Allergies Allergy/AdvReac Type Severity Reaction Status Date / Time codeine Allergy Unverified 10/19/18 13:53 divalproex sodium Allergy Unverified 10/19/18 13:53 [From Depakote] povidone-iodine AdvReac Skin Rash Unverified 10/19/18 13:53 [From Betadine] soap [From Betadine] AdvReac Skin Rash Unverified 10/19/18 13:53 Exam Narrative Exam Narrative: 37.8, 101/49, 67; HEENT unremarkable; neck supple; lungs bibasilar rales; heart rrr w/o murmur; abdomen soft nt; pelvic/rectal deferred; extr trace edeema, + thrill on LUE fistula; neuro fluent, a bit vague, moves all 4s; skin mild intertrigo left inguinal crease without cellulitis Results Labs : 10/28/18 12:40 10/28/18 12:40 Laboratory Results - last 24 hr 10/28/18 10/28/18 10/28/18 12:40 12:40 12:40 WBC 6.36 RBC 4.04 Hgb 11.2 L Hct 33.1 L MCV 81.9 MCH 27.7 MCHC 33.8 RDW 14.2 Plt Count 281 MPV 8.5 Immature Gran % 0.9 Neutrophils % 76.0 Lymphocytes % 10.2 Monocytes % 7.4 Eosinophils % 5.3 Basophils % 0.2 Absolute Neutrophils 4.83 Absolute Lymphocytes 0.65 L Absolute Monocytes 0.47 Absolute Eosinophils 0.34 Absolute Basophils 0.01 PT INR APTT Sodium 132 L Potassium 4.0 Chloride 95 L Carbon Dioxide 25.4 Anion Gap 11.6 H BUN 16 Creatinine 0.66 Estimated GFR/1.73 m2 >= 60.00 Glucose 100 Lactate 0.8 Calcium 8.2 L Total Bilirubin 0.9 AST 32 ALT 32 Alkaline Phosphatase 57 Total Protein 6.8 Albumin 2.7 L Procalcitonin Urine Color Urine Clarity Urine pH Ur Specific [place] Urine Protein Urine Ketones Urine Blood Urine Nitrite Urine Bilirubin Urine Urobilinogen Ur Leukocyte Esterase Urine RBC Urine WBC Ur Epithelial Cells Urine Crystals Urine Bacteria Urine Casts Urine Mucus Ur Culture Indicated? Urine Glucose 10/28/18 10/28/18 10/28/18 12:40 12:40 13:05 WBC RBC Hgb Hct MCV MCH MCHC RDW Plt Count MPV Immature Gran % Neutrophils % Lymphocytes % Monocytes % Eosinophils % Basophils % Absolute Neutrophils Absolute Lymphocytes Absolute Monocytes Absolute Eosinophils Absolute Basophils PT 15.2 H INR 1.5 H APTT 37.2 H Sodium Potassium Chloride Carbon Dioxide Anion Gap BUN Creatinine Estimated GFR/1.73 m2 Glucose Lactate Calcium Total Bilirubin AST ALT Alkaline Phosphatase Total Protein Albumin Procalcitonin Cancelled < 0.1 Urine Color Yellow Urine Clarity Clear Urine pH 8.5 H Ur Specific [place] 1.015 Urine Protein Negative Urine Ketones Negative Urine Blood Trace-intact H Urine Nitrite Negative Urine Bilirubin Negative Urine Urobilinogen 0.2 Ur Leukocyte Esterase Negative Urine RBC 3-5 H Urine WBC 0-2 Ur Epithelial Cells Rare Urine Crystals Negative Urine Bacteria Rare Urine Casts Negative Urine Mucus Negative Ur Culture Indicated? C&s done as ordered Urine Glucose Negative 10/28/18 13:55 WBC RBC Hgb Hct MCV MCH MCHC RDW Plt Count MPV Immature Gran % Neutrophils % Lymphocytes % Monocytes % Eosinophils % Basophils % Absolute Neutrophils Absolute Lymphocytes Absolute Monocytes Absolute Eosinophils Absolute Basophils PT INR APTT Sodium Potassium Chloride Carbon Dioxide Anion Gap BUN Creatinine Estimated GFR/1.73 m2 Glucose Lactate Calcium Total Bilirubin AST ALT Alkaline Phosphatase Total Protein Albumin Procalcitonin Urine Color Cancelled Urine Clarity Cancelled Urine pH Cancelled Ur Specific [place] Cancelled Urine Protein Cancelled Urine Ketones Cancelled Urine Blood Cancelled Urine Nitrite Cancelled Urine Bilirubin Cancelled Urine Urobilinogen Cancelled Ur Leukocyte Esterase Cancelled Urine RBC Urine WBC Ur Epithelial Cells Urine Crystals Urine Bacteria Urine Casts Urine Mucus Ur Culture Indicated? Urine Glucose Cancelled Last Vital Signs Temp 37.8 C H 10/28/18 12:26 Pulse 67 10/28/18 17:31 Resp 18 10/28/18 12:26 BP 101/49 L 10/28/18 17:31 Pulse Ox 94 L 10/28/18 17:40
[2018-10-28] MEDS: Lactated Ringers 1,000 ML 100 ML IV (21:00)
[2018-10-28] MEDS: traMADol 50 MG TAB PO (21:52)
[2018-10-28] MEDS: Tacrolimus 0.5 MG CAP 2 MG PO (21:56)
[2018-10-28] MEDS: Acetaminophen 325 MG TAB 650 MG PO (23:07)
[2018-10-28] MEDS: CEFEPIME 1 GM in Normal Saline 50 ML IVPB (23:08)
[2018-10-29] VITALS (39 sets, daily range): BP systolic 89–129; BP diastolic 37–58; PULSE 61–90; RESP 14–24; TEMP 35.5–37.2; O2SAT 90–96
[2018-10-29] MEDS: Docusate Sodium 100 MG CAP PO (00:05)
[2018-10-29] MEDS: traMADol 50 MG TAB PO ×4 (00:06→23:34)
[2018-10-29] MEDS: Nystatin POWDER 15 GM JAR TP ×3 (00:15→22:46)
[2018-10-29] MEDS: CEFEPIME 1 GM in Normal Saline 50 ML IVPB ×3 (05:04→23:26)
[2018-10-29] MEDS: levETIRAcetam 500 MG TAB 1500 MG PO ×2 (05:04→20:50)
[2018-10-29] MEDS: VANCOMYCIN 750 MG in Normal Saline 250 ML 166.6666 MG IVPB (05:46)
[2018-10-29 07:18] LABS: INR 2.3 (0.9-1.1); Prothrombin Time 23.3 sec (9.3-11.0)
[2018-10-29 08:03] LABS: Abs Immature Grans 0.02 k/cumm (0.0-0.09); Absolute Basophil Count 0.02 k/cumm (0.0-0.2); Absolute Eosinophil Count 0.24 k/cumm (0.0-0.7); Absolute Lymphocyte Count 0.82 k/cumm (1.2-3.4); Absolute Monocyte Count 0.58 k/cumm (0.11-0.7); Absolute Neutrophil Count 2.81 k/cumm (1.2-6.7); Basophils % 0.4; Eosinophils % 5.3; HCT 30.6 % (36.0-46.0); HGB 9.9 g/dL (12.0-15.5); Immature Grans % 0.4; Lymphocytes % 18.3; Mean Corp. HGB Concentration 32.4 g/dL (32.0-36.0); Mean Corpuscular Hemoglobin 27.2 pg (27.0-33.0); Mean Corpuscular Volume 84.1 fL (80-95); Mean Platelet Volume 8.8 fL (8.0-11.0); Monocytes % 12.9; Neutrophils % 62.7; Platelet Count 233 x1000/uL (130-400); RBC 3.64 m/cumm (4.00-5.20); RBC Distribution Width 14.3 % (11.7-14.6); White Blood Cell Count 4.49 k/cumm (4.4-10.8)
[2018-10-29 08:09] LABS: Anion Gap 6.7 mmol/L (3-11); BUN 13 mg/dL (7-18); CO2 25.3 mmol/L (21.0-32.0); CREATININE 0.58 mg/dL (0.55-1.02); Chloride 103 mmol/L (98-107); Glucose 103 mg/dL (70-100); Magnesium 1.7 mg/dL (1.8-2.4); Potassium 3.9 mmol/L (3.5-5.1); Sodium 135 mmol/L (136-145)
--- NOTE | 2018-10-29 08:22 | W.PM.PROGNOT ---
Date of Service Date of service: 10/29/18 Time of Service: 08:22 Assessment and Plan (1) Fever of unknown origin (FUO): Current visit: Yes Status: Acute Blood cultures are still pending; no evidence of PNA or UTI. It is entirely possible that the fevers are due to acute on chronic adrenal insufficiency, even if there is not an infectious cause. The other thing to consider would be a left hip infection, but clinically I am underwhelmed at that possibility. Kidney rejection is also on differential. Continue empiric antibiotics until blood culture results are known. Start stress dose steroids. (2) Adrenal insufficiency: Current visit: Yes Status: Acute As above (3) History of kidney transplant: Current visit: Yes Status: Acute Continue anti-rejection medications. I will speak with Dr Mina (transplant doctor) about Darlene's wishes. (4) Acute on chronic diastolic CHF (congestive heart failure): Current visit: Yes Status: Acute IVF were slowed down. I am hoping to completely d/c them after initiation of stress dose steroids, once BP's allow. Watch respiratory status carefully and diurese as aggressively as BP's permit. (5) Seizure disorder: Current visit: No Status: Chronic Continue keppra (6) Hypercoagulable state, primary: Current visit: No Status: Acute Continue coumadin (7) Neurogenic bladder: Current visit: No Status: Acute s/p kidd - continue. UA negative for a UTI. (8) Discharge planning issues: Current visit: No Status: Acute Full code, attempting to convert to DNR/DNI and possibly hospice. Appreciate palliative care's recommendations. I will speak with Dr Mina. Patient states she would like [facility]. Will keep in ICU until BP's are just a little bit better. (9) DVT prophylaxis: Current visit: No Status: Acute On therapeutic coumadin Subjective Interval history since last seen: Darlene and her sister met with palliative care (Dr Chamorro) last night in ED - sister and pt did not want aggressive care or transfer to [facility] COL[facility] form given, but it has to go through court to go from full code to hospice/become DNR/DNI. Darlene has been saying that she is tired of this and is intrested in being comfortable. She thinks that Dr Mina did a very good job with her kidney, but now she is done, and she would like me to tell me him that. Overnight, did well, SBP did go down to 80's, now above 100. Tmax 38.8, responded to tylenol. Feels like she might be febrile now, but otherwise feels ok. Denies dizziness, chest pain, nausea, abdominal pain. Does report feeling short of breath earlier, but not now. Exam Narrative Exam Narrative: General: very pleasant female, very clearly articulates what her wishes are. A&Ox3, NAD, she is sweaty and feels hot to touch HEENT: EOMI, MMM Heart: RRR, no m/r/g Lungs: Crackles at B bases GI: abdomen is soft, nontender, nondistended Extremities: LUE AVF with palpable thrill and bruit; trace edema BLE's, no c/c; L hip with lidoderm patch, no erythema seen Objective Objective Clinical Data: Abnormal lab results 10/28/18 10/28/18 10/28/18 Range/Units 12:40 12:40 12:40 RBC (4.00-5.20) m/cumm Hgb 11.2 L (12.0-15.5) g/dL Hct 33.1 L (36.0-46.0) % Absolute Lymphocytes 0.65 L (1.2-3.4) k/cumm PT 15.2 H (9.3-11.0) sec INR 1.5 H (0.9-1.1) APTT 37.2 H (21.0-31.4) sec Sodium 132 L (136-145) mmol/L Chloride 95 L (98-107) mmol/L Anion Gap 11.6 H (3-11) mmol/L Glucose (70-100) mg/dL Calcium 8.2 L (8.5-10.1) mg/dL Magnesium (1.8-2.4) mg/dL Albumin 2.7 L (3.4-5.0) g/dL Urine pH (5-8) Urine Blood (Negative) Urine RBC (0-2) 10/28/18 10/29/18 10/29/18 Range/Units 13:05 06:20 06:20 RBC (4.00-5.20) m/cumm Hgb (12.0-15.5) g/dL Hct (36.0-46.0) % Absolute Lymphocytes (1.2-3.4) k/cumm PT 23.3 H D (9.3-11.0) sec INR 2.3 H D (0.9-1.1) APTT (21.0-31.4) sec Sodium 135 L (136-145) mmol/L Chloride (98-107) mmol/L Anion Gap (3-11) mmol/L Glucose 103 H (70-100) mg/dL Calcium 8.0 L (8.5-10.1) mg/dL Magnesium 1.7 L (1.8-2.4) mg/dL Albumin (3.4-5.0) g/dL Urine pH 8.5 H (5-8) Urine Blood Trace-intact H (Negative) Urine RBC 3-5 H (0-2) 10/29/18 Range/Units 07:50 RBC 3.64 L (4.00-5.20) m/cumm Hgb 9.9 L (12.0-15.5) g/dL Hct 30.6 L (36.0-46.0) % Absolute Lymphocytes 0.82 L (1.2-3.4) k/cumm PT (9.3-11.0) sec INR (0.9-1.1) APTT (21.0-31.4) sec Sodium (136-145) mmol/L Chloride (98-107) mmol/L Anion Gap (3-11) mmol/L Glucose (70-100) mg/dL Calcium (8.5-10.1) mg/dL Magnesium (1.8-2.4) mg/dL Albumin (3.4-5.0) g/dL Urine pH (5-8) Urine Blood (Negative) Urine RBC (0-2) Vital Signs Temperature 35.5 C L 10/29/18 03:15 Temperature Source Temporal Artery Scan 10/29/18 03:15 Pulse 66 10/29/18 07:02 Pulse Rhythm Irregular 10/29/18 00:05 Pulse 72 10/29/18 03:01 Respiratory Rate 18 10/29/18 03:01 Respiratory Effort 10/29/18 00:05 Respiratory Depth Normal 10/29/18 00:05 Respiratory Pattern Normal 10/29/18 00:05 Blood Pressure 101/53 L 10/29/18 03:01 Blood Pressure Mean 64 10/29/18 03:01 Blood Pressure Position Sitting 10/28/18 12:26 Pulse Oximetry 96 10/29/18 03:01 Oxygen Delivery Method Room Air 10/28/18 21:00 Oxygen Flow Rate 0 10/28/18 21:00 Pain Level 9 10/28/18 21:00 Comment 10/28/18 23:00 Intake & Output 10/28/18 10/28/18 10/29/18 11:59 23:59 11:59 Intake Total 1450 / 1450 650 / 650 Output Total 1750 / 1750 Balance 1450 / 1450 -1100 / -1100 Weight 56.245 kg 58.7 kg Intake: IV 1450 / 1450 350 / 350 Oral 300 / 300 Output: Urine 1750 / 1750 Other: Urine Color Straw Urine Appearance Clear Comment Sister states that the pts Kidney doctor hates the fact that she has a Kidd becuase of infection risk, but she is unable to open her legs repeatedly to be straight cathed. This is due to pain. Purulent drainage and oder are both absent at catheter insertion site and in urine. Pt. denies pain with urination. Laboratory Results WBC 4.49 k/cumm (4.4-10.8) 10/29/18 07:50 RBC 3.64 m/cumm (4.00-5.20) L 10/29/18 07:50 Hgb 9.9 g/dL (12.0-15.5) L 10/29/18 07:50 Hct 30.6 % (36.0-46.0) L 10/29/18 07:50 MCV 84.1 fL (80-95) 10/29/18 07:50 MCH 27.2 pg (27.0-33.0) 10/29/18 07:50 MCHC 32.4 g/dL (32.0-36.0) 10/29/18 07:50 RDW 14.3 % (11.7-14.6) 10/29/18 07:50 Plt Count 233 x1000/uL (130-400) 10/29/18 07:50 MPV 8.8 fL (8.0-11.0) 10/29/18 07:50 Immature Gran % 0.4 10/29/18 07:50 Neutrophils % 62.7 10/29/18 07:50 Lymphocytes % 18.3 10/29/18 07:50 Monocytes % 12.9 10/29/18 07:50 Eosinophils % 5.3 10/29/18 07:50 Basophils % 0.4 10/29/18 07:50 Absolute Neutrophils 2.81 k/cumm (1.2-6.7) 10/29/18 07:50 Absolute Lymphocytes 0.82 k/cumm (1.2-3.4) L 10/29/18 07:50 Absolute Monocytes 0.58 k/cumm (0.11-0.7) 10/29/18 07:50 Absolute Eosinophils 0.24 k/cumm (0.0-0.7) 10/29/18 07:50 Absolute Basophils 0.02 k/cumm (0.0-0.2) 10/29/18 07:50 PT 23.3 sec (9.3-11.0) H D 10/29/18 06:20 INR 2.3 (0.9-1.1) H D 10/29/18 06:20 APTT 37.2 sec (21.0-31.4) H 10/28/18 12:40 Sodium 135 mmol/L (136-145) L 10/29/18 06:20 Potassium 3.9 mmol/L (3.5-5.1) 10/29/18 06:20 Chloride 103 mmol/L (98-107) 10/29/18 06:20 Carbon Dioxide 25.3 mmol/L (21.0-32.0) 10/29/18 06:20 Anion Gap 6.7 mmol/L (3-11) 10/29/18 06:20 BUN 13 mg/dL (7-18) 10/29/18 06:20 Creatinine 0.58 mg/dL (0.55-1.02) 10/29/18 06:20 Estimated GFR/1.73 m2 >= 60.00 (mL/min/1.73m2) 10/29/18 06:20 Glucose 103 mg/dL (70-100) H 10/29/18 06:20 Lactate 0.8 mmol/l (0.6-1.4) 10/28/18 12:40 Calcium 8.0 mg/dL (8.5-10.1) L 10/29/18 06:20 Magnesium 1.7 mg/dL (1.8-2.4) L 10/29/18 06:20 Total Bilirubin 0.9 mg/dL (0.2-1.0) 10/28/18 12:40 AST 32 U/L (15-37) 10/28/18 12:40 ALT 32 U/L (12-78) 10/28/18 12:40 Alkaline Phosphatase 57 U/L (46-116) 10/28/18 12:40 Total Protein 6.8 g/dL (6.4-8.2) 10/28/18 12:40 Albumin 2.7 g/dL (3.4-5.0) L 10/28/18 12:40 Procalcitonin < 0.1 ng/mL 10/28/18 12:40 Urine Color Yellow (Yellow) 10/28/18 13:05 Urine Clarity Clear (Clear) 10/28/18 13:05 Urine pH 8.5 (5-8) H 10/28/18 13:05 Ur Specific [place] 1.015 (1.005-1.025) 10/28/18 13:05 Urine Protein Negative mg/dL (Negative) 10/28/18 13:05 Urine Ketones Negative mg/dL (Negative) 10/28/18 13:05 Urine Blood Trace-intact (Negative) H 10/28/18 13:05 Urine Nitrite Negative (Negative) 10/28/18 13:05 Urine Bilirubin Negative (Negative) 10/28/18 13:05 Urine Urobilinogen 0.2 EU/dL (Up TO 0.2) 10/28/18 13:05 Ur Leukocyte Esterase Negative (Negative) 10/28/18 13:05 Urine RBC 3-5 (0-2) H 10/28/18 13:05 Urine WBC 0-2 HPF (0-5) 10/28/18 13:05 Ur Epithelial Cells Rare HPF (Negative) 10/28/18 13:05 Urine Crystals Negative HPF (Negative) 10/28/18 13:05 Urine Bacteria Rare HPF (Negative) 10/28/18 13:05 Urine Casts Negative LPF (Negative) 10/28/18 13:05 Urine Mucus Negative (Negative) 10/28/18 13:05 Ur Culture Indicated? C&s done as ordered 10/28/18 13:05 Urine Glucose Negative mg/dL (Negative) 10/28/18 13:05
[2018-10-29] MEDS: Warfarin 5 MG TAB PO (08:48)
[2018-10-29] MEDS: Esomeprazole 40 MG CAPCR PO (08:48)
[2018-10-29] MEDS: predniSONE 5 MG TAB PO (08:48)
[2018-10-29] MEDS: Acetaminophen 325 MG TAB 650 MG PO ×2 (09:17→20:50)
--- NOTE | 2018-10-29 09:40 | OT.INIE ---
Occupational Therapy Notes Inpatient Occupational Therapy Evaluation Date: 10/29/18 Referring Doctor: Renée Dumont MD OT Orders: Eval and Treat Precautions: Fall, Decreased safety awareness, Standard PATIENT PROFILE/ADMITTING DIAGNOSIS: Pt is a 53 year old female admitted through the ER for acquired immunocompromised state, sepsis and hypotension and is s/p renal transplant x3 and has a neurogenic bladder. Past Medical History: Chronic anticoagulation Chronic kidney disease Convulsions Hyperparathyroidism Neurogenic bladder Osteoporosis Peripheral neuropathy Protein S deficiency TBI (traumatic brain injury) Surgical History Colonoscopy - MAC (02/11/15) Fistula creation Renal Transplant Social History/Home Situation: Pt states that she lives in a [facility] setting in [place], [place]. She reports that she is functionally (I) with all ADLs/IADLs and later states that she requires (A) with putting on (B) socks, pulling up her pants, and helping her whenever she needs it for food. She reports that she is unable to cut her own food. She uses a shower chair in the shower and states that she uses a FWW for functional mobility. Equipment owned/DME: FWW, shower chair SUBJECTIVE: Pt was sitting in bed when OT arrived. She was agreeable to OT session. Her sister Nicol was present in the room during session. OBJECTIVE: General Observation: Noriega, IV (R) UEx2, pleasant, emotion due to leg cramping. Mental Status: A&Ox3 Pain: c/o pain in (B) LE with cramping ROM: RUE Shoulder flexion limited to 130*, elbow WNL, hand and digits WNL L UE Shoulder flexion WNL, elbow WNL, hand and digits WNL STRENGTH: RUE Shoulder flexion 3-/5, bicep 3-/5, tricep 3/5, hat liner is weak LUE Shoulder flexion 3-/5, bicep 3-/5, tricep 3-/5, hat liner is weak FUNCTIONAL MOBILITY/ADLS: Supine-sit Mod (A) Sit to supine Mod (A) Sit to stand Mod (A) x2 Stand to sit Mod (A) x2 BATHING Sitting in chair with max (A) set up, (I) face, (B) UE, max (A) back, abdomen and (B) LE DRESSING Pt is max (A) don and doff (B) LE socks, mod (A) [facility] EATING NT BALANCE: Static sitting Good Dynamic Sitting Good Static standing Good Dynamic standing Good SPECIAL TESTS: Daily Activity Limitations Standardized Measure [facility] AM -PAC ?6 clicks? Daily Activity Inpatient Short Form: Raw score: 16 Standardized score: 35.96 CMS score: 53.32% INFORMED CONSENT/EDUCATION: Pt instructed in purpose of OT Consult and plan of care. ASSESSMENT: Patient is a 53-year-old female referred to occupational therapy services with diagnosis of acquired immunocompromised state, sepsis, and hypotension. Patient presents with clinical signs and symptoms consistent with dx, as demonstrated by the following impairment level findings: decreased (B) UE strength, decreased (B) UE AROM, decreased functional activity tolerance, pain in UE/LE, decreased performance in ADLS/IADLs. Impairments are contributing to the following functional limitations: Deficit in LE bathing and dressing, pain in UE and c/o cramping in LE limiting LE (I), decreased functional ROM limiting (I) in ADL/IADL routines, decreased functional functional activity tolerance. AMPAC score 16, CMS score 53.32% Patient is assessed as a Moderate [id number] complexity based on the following: History: See Above Examination: See Above Presentation: Evolving Decision Making: AMPAC score 16, CMS score 53.32% GOALS 1. Transfers- FWW (S) 2. Dressing Sitting in chair mod (A) don and doffing (B) socks and pants, (I) donning and doffing UE 3. Bathing Sitting in chair mod (A) LE, (I) UE 4. Toileting on toilet mod (A) 5. Eating sitting in chair (I) 6. Grooming sitting in chair (I) teeth and hair PLAN OF CARE/TREATMENT PLAN: 1x/day, 5 days/ week x 1week Initiate Occupational Therapy Services for bathing, dressing, grooming, toileting, eating, transfer training. DISCHARGE RECOMMENDATIONS Pt go to SNF TREATMENT TIME/MINUTES/CODES 34627, 40 minutes (08:55) Nichole Garrett OTR/[facility]
--- NOTE | 2018-10-29 09:47 | OTIE_ITS ---
Occupational Therapy Notes Inpatient Occupational Therapy Evaluation Date: 10/29/18 Referring Doctor: Renée Dumont MD OT Orders: Eval and Treat Precautions: Fall, Decreased safety awareness, Standard PATIENT PROFILE/ADMITTING DIAGNOSIS: Pt is a 53 year old female admitted through the ER for acquired immunocompromised state, sepsis and hypotension and is s/p renal transplant x3 and has a neurogenic bladder. Past Medical History: Chronic anticoagulation Chronic kidney disease Convulsions Hyperparathyroidism Neurogenic bladder Osteoporosis Peripheral neuropathy Protein S deficiency TBI (traumatic brain injury) Surgical History Colonoscopy - MAC (02/11/15) Fistula creation Renal Transplant Social History/Home Situation: Pt states that she lives in a [facility] setting in [place], [place]. She reports that she is functionally (I) with all ADLs/IADLs and later states that she requires (A) with putting on (B) socks, pulling up her pants, and helping her whenever she needs it for food. She reports that she is unable to cut her own food. She uses a shower chair in the shower and states that she uses a FWW for functional mobility. Equipment owned/DME: FWW, shower chair SUBJECTIVE: Pt was sitting in bed when OT arrived. She was agreeable to OT session. Her sister Nicol was present in the room during session. OBJECTIVE: General Observation: Noriega, IV (R) UEx2, pleasant, emotion due to leg cramping. Mental Status: A&Ox3 Pain: c/o pain in (B) LE with cramping ROM: RUE Shoulder flexion limited to 130*, elbow WNL, hand and digits WNL L UE Shoulder flexion WNL, elbow WNL, hand and digits WNL STRENGTH: RUE Shoulder flexion 3-/5, bicep 3-/5, tricep 3/5, user acceptance tester is weak LUE Shoulder flexion 3-/5, bicep 3-/5, tricep 3-/5, user acceptance tester is weak FUNCTIONAL MOBILITY/ADLS: Supine-sit Mod (A) Sit to supine Mod (A) Sit to stand Mod (A) x2 Stand to sit Mod (A) x2 BATHING Sitting in chair with max (A) set up, (I) face, (B) UE, max (A) back, abdomen and (B) LE DRESSING Pt is max (A) don and doff (B) LE socks, mod (A) [facility] gown EATING NT BALANCE: Static sitting Good Dynamic Sitting Good Static standing Good Dynamic standing Good SPECIAL TESTS: Daily Activity Limitations Standardized Measure [facility] AM -PAC ?6 clicks? Daily Activity Inpatient Short Form: Raw score: 16 Standardized score: 35.96 CMS score: 53.32% INFORMED CONSENT/EDUCATION: Pt instructed in purpose of OT Consult and plan of care. ASSESSMENT: Patient is a 53-year-old female referred to occupational therapy services with diagnosis of acquired immunocompromised state, sepsis, and hypotension. Patient presents with clinical signs and symptoms consistent with dx, as demonstrated by the following impairment level findings: decreased (B) UE strength, decreased (B) UE AROM, decreased functional activity tolerance, pain in UE/LE, decreased performance in ADLS/IADLs. Impairments are contributing to the following functional limitations: Deficit in LE bathing and dressing, pain in UE and c/o cramping in LE limiting LE (I), decreased functional ROM limiting (I) in ADL/IADL routines, decreased functional functional activity tolerance. AMPAC score 16, CMS score 53.32% Patient is assessed as a Moderate [id number] complexity based on the following: History: See Above Examination: See Above Presentation: Evolving Decision Making: AMPAC score 16, CMS score 53.32% GOALS 1. Transfers- FWW (S) 2. Dressing Sitting in chair mod (A) don and doffing (B) socks and pants, (I) donning and doffing UE 3. Bathing Sitting in chair mod (A) LE, (I) UE 4. Toileting on toilet mod (A) 5. Eating sitting in chair (I) 6. Grooming sitting in chair (I) teeth and hair PLAN OF CARE/TREATMENT PLAN: 1x/day, 5 days/ week x 1week Initiate Occupational Therapy Services for bathing, dressing, grooming, toileting, eating, transfer training. DISCHARGE RECOMMENDATIONS Pt go to SNF TREATMENT TIME/MINUTES/CODES 57433, 40 minutes (08:55) Nichole Garrett OTR/[facility]
[2018-10-29] MEDS: Tacrolimus 0.5 MG CAP 2 MG PO (10:17)
[2018-10-29] MEDS: Magnesium Oxide 400 MG TAB PO ×3 (10:17→20:52)
--- NOTE | 2018-10-29 10:24 | PCPN_ITS ---
Date of service: 10/29/18 Time of Service: 10:17 Assessment and Plan (1) Fever: Current visit: Yes Status: Acute Zaynab continues to have a fever. Nothing has declared itself regarding source of the fever. I spoke with Dr. Dumont who is concerned that her left hip pain may be the source as she has received injections in the hip. Her blood pressure has stayed stable overnight therefore discussion regarding vasopressors and central line did not need to be made Nicol is not here today as of yet. Long-range plan still need to be considered. Nilsa is all set to go to [facility] if possible. Stacy continues to state how tired she is both illness graff and of coming in and out of the hospitals. It may be worthwhile to consider a hospice consult just so that they have the information. If Nilsa were to be changed from full code her guardian Nicol would need to petition the court. This document was created by [employer] recognition and may contain grammatical and translation errors. I have spent more than 50% of time in counseling with this patient. (2) New onset of congestive heart failure: Current visit: No Status: Acute (3) Seizure disorder: Current visit: No Status: Chronic (4) S/P kidney transplant: Current visit: No Status: Acute Subjective Patient reports: no new complaints, feels better and fever Interval history since last seen: Stacy states that she had a good night. She slept well. Nursing states that Stacy maintained adequate blood pressure for the last 12 hours. Everyone is concerned about her fever Exam Narrative Exam Narrative: Stacy is lying in bed. She appears alert initially, but then as conversation continued she closed her eyes repeatedly. She says I am tired I am tired Eyes General: appearance normal, both eyes and all related structures Resp Effort & Inspection: normal respiratory effort and able to speak in complete sentences (5 word sentences) Auscultation: crackles on the right 1/3 way up and on the left 1/2 way up and other Cardio Rate: regular rate Rhythm: regular rhythm GI Palpation: soft Auscultation: normal bowel sounds Psych Other: She was tired. She continues to want to please others. Objective Objective Clinical Data: Abnormal lab results 10/28/18 10/28/18 10/28/18 Range/Units 12:40 12:40 12:40 RBC (4.00-5.20) m/cumm Hgb 11.2 L (12.0-15.5) g/dL Hct 33.1 L (36.0-46.0) % Absolute Lymphocytes 0.65 L (1.2-3.4) k/cumm PT 15.2 H (9.3-11.0) sec INR 1.5 H (0.9-1.1) APTT 37.2 H (21.0-31.4) sec Sodium 132 L (136-145) mmol/L Chloride 95 L (98-107) mmol/L Anion Gap 11.6 H (3-11) mmol/L Glucose (70-100) mg/dL Calcium 8.2 L (8.5-10.1) mg/dL Magnesium (1.8-2.4) mg/dL Albumin 2.7 L (3.4-5.0) g/dL Urine pH (5-8) Urine Blood (Negative) Urine RBC (0-2) 10/28/18 10/29/18 10/29/18 Range/Units 13:05 06:20 06:20 RBC (4.00-5.20) m/cumm Hgb (12.0-15.5) g/dL Hct (36.0-46.0) % Absolute Lymphocytes (1.2-3.4) k/cumm PT 23.3 H D (9.3-11.0) sec INR 2.3 H D (0.9-1.1) APTT (21.0-31.4) sec Sodium 135 L (136-145) mmol/L Chloride (98-107) mmol/L Anion Gap (3-11) mmol/L Glucose 103 H (70-100) mg/dL Calcium 8.0 L (8.5-10.1) mg/dL Magnesium 1.7 L (1.8-2.4) mg/dL Albumin (3.4-5.0) g/dL Urine pH 8.5 H (5-8) Urine Blood Trace-intact H (Negative) Urine RBC 3-5 H (0-2) 10/29/18 Range/Units 07:50 RBC 3.64 L (4.00-5.20) m/cumm Hgb 9.9 L (12.0-15.5) g/dL Hct 30.6 L (36.0-46.0) % Absolute Lymphocytes 0.82 L (1.2-3.4) k/cumm PT (9.3-11.0) sec INR (0.9-1.1) APTT (21.0-31.4) sec Sodium (136-145) mmol/L Chloride (98-107) mmol/L Anion Gap (3-11) mmol/L Glucose (70-100) mg/dL Calcium (8.5-10.1) mg/dL Magnesium (1.8-2.4) mg/dL Albumin (3.4-5.0) g/dL Urine pH (5-8) Urine Blood (Negative) Urine RBC (0-2) Vital Signs Temperature 95.9 F L 10/29/18 03:15 Temperature Source Temporal Artery Scan 10/29/18 03:15 Pulse 72 10/29/18 08:46 Pulse Rhythm Regular 10/29/18 08:00 Pulse 78 10/29/18 08:46 Respiratory Rate 19 10/29/18 08:46 Respiratory Effort Non-Labored 10/29/18 08:00 Respiratory Depth Normal 10/29/18 08:00 Respiratory Pattern Normal 10/29/18 08:00 Blood Pressure 101/51 L 10/29/18 08:46 Blood Pressure Mean 64 10/29/18 08:46 Blood Pressure Position Sitting 10/28/18 12:26 Pulse Oximetry 93 L 10/29/18 08:16 Oxygen Delivery Method Room Air 10/28/18 21:00 Oxygen Flow Rate 0 10/28/18 21:00 Pain Level 9 10/28/18 21:00 Comment 10/28/18 23:00 Intake & Output 10/28/18 10/28/18 10/29/18 11:59 23:59 11:59 Intake Total 1450 / 1450 1870 / 1870 Output Total 1750 / 1750 Balance 1450 / 1450 120 / 120 Weight 123 lb 15.984 oz 129 lb 6.581 oz Intake: IV 1450 / 1450 1250 / 1250 Oral 620 / 620 Output: Urine 1750 / 1750 Other: Urine Color Straw Urine Appearance Clear Comment Sister states that the pts Kidney doctor hates the fact that she has a Noriega becuase of infection risk, but she is unable to open her legs repeatedly to be straight cathed. This is due to pain. Purulent drainage and oder are both absent at catheter insertion site and in urine. Pt. denies pain with urination. Stool Occult Blood Negative Stool Size Large Stool Characteristics Soft Formed Laboratory Results WBC 4.49 k/cumm (4.4-10.8) 10/29/18 07:50 RBC 3.64 m/cumm (4.00-5.20) L 10/29/18 07:50 Hgb 9.9 g/dL (12.0-15.5) L 10/29/18 07:50 Hct 30.6 % (36.0-46.0) L 10/29/18 07:50 MCV 84.1 fL (80-95) 10/29/18 07:50 MCH 27.2 pg (27.0-33.0) 10/29/18 07:50 MCHC 32.4 g/dL (32.0-36.0) 10/29/18 07:50 RDW 14.3 % (11.7-14.6) 10/29/18 07:50 Plt Count 233 x1000/uL (130-400) 10/29/18 07:50 MPV 8.8 fL (8.0-11.0) 10/29/18 07:50 Immature Gran % 0.4 10/29/18 07:50 Neutrophils % 62.7 10/29/18 07:50 Lymphocytes % 18.3 10/29/18 07:50 Monocytes % 12.9 10/29/18 07:50 Eosinophils % 5.3 10/29/18 07:50 Basophils % 0.4 10/29/18 07:50 Absolute Neutrophils 2.81 k/cumm (1.2-6.7) 10/29/18 07:50 Absolute Lymphocytes 0.82 k/cumm (1.2-3.4) L 10/29/18 07:50 Absolute Monocytes 0.58 k/cumm (0.11-0.7) 10/29/18 07:50 Absolute Eosinophils 0.24 k/cumm (0.0-0.7) 10/29/18 07:50 Absolute Basophils 0.02 k/cumm (0.0-0.2) 10/29/18 07:50 PT 23.3 sec (9.3-11.0) H D 10/29/18 06:20 INR 2.3 (0.9-1.1) H D 10/29/18 06:20 APTT 37.2 sec (21.0-31.4) H 10/28/18 12:40 Sodium 135 mmol/L (136-145) L 10/29/18 06:20 Potassium 3.9 mmol/L (3.5-5.1) 10/29/18 06:20 Chloride 103 mmol/L (98-107) 10/29/18 06:20 Carbon Dioxide 25.3 mmol/L (21.0-32.0) 10/29/18 06:20 Anion Gap 6.7 mmol/L (3-11) 10/29/18 06:20 BUN 13 mg/dL (7-18) 10/29/18 06:20 Creatinine 0.58 mg/dL (0.55-1.02) 10/29/18 06:20 Estimated GFR/1.73 m2 >= 60.00 (mL/min/1.73m2) 10/29/18 06:20 Glucose 103 mg/dL (70-100) H 10/29/18 06:20 Lactate 0.8 mmol/l (0.6-1.4) 10/28/18 12:40 Calcium 8.0 mg/dL (8.5-10.1) L 10/29/18 06:20 Magnesium 1.7 mg/dL (1.8-2.4) L 10/29/18 06:20 Total Bilirubin 0.9 mg/dL (0.2-1.0) 10/28/18 12:40 AST 32 U/L (15-37) 10/28/18 12:40 ALT 32 U/L (12-78) 10/28/18 12:40 Alkaline Phosphatase 57 U/L (46-116) 10/28/18 12:40 Total Protein 6.8 g/dL (6.4-8.2) 10/28/18 12:40 Albumin 2.7 g/dL (3.4-5.0) L 10/28/18 12:40 Procalcitonin < 0.1 ng/mL 10/28/18 12:40 Urine Color Yellow (Yellow) 10/28/18 13:05 Urine Clarity Clear (Clear) 10/28/18 13:05 Urine pH 8.5 (5-8) H 10/28/18 13:05 Ur Specific [place] 1.015 (1.005-1.025) 10/28/18 13:05 Urine Protein Negative mg/dL (Negative) 10/28/18 13:05 Urine Ketones Negative mg/dL (Negative) 10/28/18 13:05 Urine Blood Trace-intact (Negative) H 10/28/18 13:05 Urine Nitrite Negative (Negative) 10/28/18 13:05 Urine Bilirubin Negative (Negative) 10/28/18 13:05 Urine Urobilinogen 0.2 EU/dL (Up TO 0.2) 10/28/18 13:05 Ur Leukocyte Esterase Negative (Negative) 10/28/18 13:05 Urine RBC 3-5 (0-2) H 10/28/18 13:05 Urine WBC 0-2 HPF (0-5) 10/28/18 13:05 Ur Epithelial Cells Rare HPF (Negative) 10/28/18 13:05 Urine Crystals Negative HPF (Negative) 10/28/18 13:05 Urine Bacteria Rare HPF (Negative) 10/28/18 13:05 Urine Casts Negative LPF (Negative) 10/28/18 13:05 Urine Mucus Negative (Negative) 10/28/18 13:05 Ur Culture Indicated? C&s done as ordered 10/28/18 13:05 Urine Glucose Negative mg/dL (Negative) 10/28/18 13:05 Vancomycin Trough Cancelled 10/29/18 18:00
[2018-10-29] MEDS: Lactated Ringers 1,000 ML 50 ML IV (10:46)
--- NOTE | 2018-10-29 12:10 | PHARADMIT ---
Addendum entered by Bert Blackwell III 11/03/18 15:05: Pharmacy Note Subjective Patient experienced another dizzy spell today. Objective VS-ok INR-3.3 Lytes, H&H, -OK Assessment Warfarin back on hold INR-3.3 Plan CM have received placement at [facility] tomorrow if patient is ready. Addendum entered by Bert Blackwell III 10/31/18 15:09: Pharmacy Note Subjective Patient continues to feel better. Objective VS-OK Na-132 Mag-1.7 INR-4.3 Assessment Mag bolus given, Warfarin on hold Plan Plan is for discharge ome vs swing bed after ABX de-escalation and steroid taper Addendum entered by Barb Cronin 10/30/18 12:20: Pharmacy Note Subjective pt feeling better per morning report Objective BP-119/58 HR-58 other VS okay Na-133 mag-1.6 (replacement given) INR-3.69 Assessment -vanco, levofloxacin and cefepime continue, plans on slowly stopping these starting tomorrow -vanco trough came back high at 23.7 so held dose for two hours and restarted at 1000 mg Q10H to target a trough of 15.1 -warfarin held due to INR -furosemide ordered 20 mg IVP BID -hydrocortisone changed from 50 mg Q6H to Q8H, plans on very slow taper Plan watch INR order vanco trough for tomorrow if MD does not discontinue it Original Note: Admission Pharmacy Clinical Review FEVER, Hypotensive (Hx kidney transplant) Code Status Full Code Current Weight 58.7 kg Renally Cleared and Narrow Therapeutic Index Meds CrCl~73ml/min QTc Value / Action Taken QTC 10/19/18 was 462 (QT meds: Citalopram, Levaquin BP Control, Fever BP 101/51 HR 72 Afebrile now (Tmax 38.8 last night) Electrolytes reviewed Na++ 135 K+ 3.9 Mag 1.7 (Mag ox TID-home dose)....watch for diarrhea DVT Prophylaxis Warfarin Opiate Usage / Scheduled Bowel Regimen Ordered Plt/SCr for Heparin / Enoxaparin Plt 233 SCr 0.58 INR for Warfarin INR 2.3 H/H stable, WBC/Bands H/H 9.9/30.6 WBC 4.49 Antibiotic appropriateness Vanco/Cefepime/Levaquin In ED, Vanco 1gram x1, then anvial Christopher ordered 750mg Q12h which was underdosed, dose #3 changed to 1gram IV q8h....kidney function good even though just one kidney Cultures and Sensitivities Procalcitonin <0.1 Urine: Gram positive 10-50K Blood: pending flu negative Surgical ABX d/c within 24 hr DM control / Insulin Dosing BG 103 Heart Failure (Check EF%) (SHEILA's, B-Block, Diuretics) Lasix--on hold IV to PO Switch steroids, Home Meds Reviewed Prograf & Cellcept for anti-rejection, Keppra for seizure history Pt's own Hematinic multi-vit with iron...will ask RN, came from alf so unlikely Home Meds Not Ordered Comments no UTI, no Pneumonia, c/o hip pain where she's had injections MD concerned as possible source of infection? Palliative consult-came from alf IV stress steroids started (in addition to oral Prednisone)
[2018-10-29] MEDS: Hydrocortisone SOD SUC. 100 MG VIAL IVP (12:22)
[2018-10-29] MEDS: Citalopram 20 MG TAB PO (12:23)
[2018-10-29] MEDS: Normal Saline Flush 10 ML SYR (12:23)
--- NOTE | 2018-10-29 12:47 | PDOC.CMIN ---
- If Service Date Differs Date of service: 10/29/18 Time of Service: 12:47 Care Management Initial Assess REASON FOR HOSPITALIZATION:: Fever PAST MEDICAL HISTORY/PAST SURGICAL HISTORY:: Medical: chronic anticoagulation, CKD, convulsions, hyperparathyroidism, neurogenic bladder, osteoporosis, peripheral neuropathy, protein S deficiency, TBI. Surgical: colonoscopy, fistula creation, renal transplant. PREVIOUS FUNCTIONAL STATUS/SOCIAL/FAMILY SUPPORTS:: Darlene is 53 yo single woman who lives in a women's retirement in [place]. She has been there for several years. She has a sister, Nicol Gruber, who is her legal guardian. Her sister was apparently present on admission and reported that Darlene is usually not confused at baseline. She gets her care from staff at retirement and a nurse Sarah Caruso RN CURRENT FUNCTIONAL STATUS:: Ayde reports she is feeling better since admission. She feels that she was not ready to return home at last discharge. was able to meet [facility] Gena today, Darlene and her sister would like to address her code status. Darlene 's goals are to attend two weddings this summer and feels this goal is attainable. She is hopeful she will be able to go [facility] from the hospital. She reports quality of life has improved since the indwelling cath. ADVANCE DIRECTIVES:: Sister Nallely Gruber is her court appointed legal guardian. Copy of appointment is scanned into her record. Has patient been provided with information about the portal?: Yes Did the patient sign up for the portal?: No CODE STATUS:: Full Code INSURANCE COVERAGE / FINANCIAL ISSUES:: Medicare and Medicaid CURRENT HOME/COMMUNITY SERVICES/EQUIPMENT:: Gena lives in a retirement in [place], [place]. She has private caregivers that are trained by RN in the home to provide care to Darlene. Darlene has a FWW, tube seat, wheelchair, and raised toilet seat at home. PRIMARY CARE PHYSICIAN:: POTENTIAL DISCHARGE NEEDS:: Referral SNF placement PATIENT/FAMILY EDUCATION NEEDS:: Discharge education, limitations and follow up plan of care. ANTICIPATED BARRIERS TO DISCHARGE:: SNF acceptence TRANSPORTATION:: Pending disposition. PLAN:: Darlene is currently receving care in the ICU including antibioitcs. She does not want any medications that would increase her blood pressure and she having conversations with her sister related to interventions she would want in the event she becomes more ill. Candie her guardian is present and would lke more information about addressing code status to assist her sister in decision making. CM will contact the court to identifiy proper paperwork to assist with task. Referral was provided to admissions at [facility] anticipate Darlene would be ready to be discharged on Saturday pending bed offer from facility. Her next palliaitve appointment is scheduled on 12/10/18 @ 1030 at the office. CM to continue to provide support to patient discharge planning and disposition. Readmission - Date of First Admission Date of 1st Admission: 10/19/18 - Date of this Admission Date of Admission: 10/28/18 This admission was: Through ED - Office Visit Since 1st Admission Have you seen your PCP in the office since discharge?: No Had an appointment Been Scheduled?: Yes Date of Scheduled Appointment: 11/03/18 - Speicalist Appointments Have you seen any other specialist since your 1st Admission?: No - I. Interview patient and/or Family Difficulty reaching your doctor or getting an office appt?: No Have you had trouble purchasing/ or taking medication?: No How do you take your medications and set up your pills?: retirement provides medications and RN evals. Have you had trouble with getting meals at home?: No Did you feel ready for discharge when you left the last time: No (I think I was discharged to early) Why did you not feel ready for discharge?: I felt like I was not back to my baseline and I was not ready. Were services received that you thought were set up on disch: Yes - ED visits How many ED visits in the past 12 months: 3 - Assessment for Readmission Summary of readmission circumstances, based upon interviews: Darlene arrived home she continued to run intermittent fevers after discharge. She did go home with an indwelling cath and a follow up appointment. She begin to feel worse and was brought to the ED where she was admitted with fever of unknown origin. Blood cultures are pending. Darlene does state that she did not feel ready to return home she was hopeful once she got there she would feel better.
--- NOTE | 2018-10-29 12:50 | INITIAL_ITS ---
- If Service Date Differs Date of service: 10/29/18 Time of Service: 12:47 Care Management Initial Assess REASON FOR HOSPITALIZATION:: Fever PAST MEDICAL HISTORY/PAST SURGICAL HISTORY:: Medical: chronic anticoagulation, CKD, convulsions, hyperparathyroidism, neurogenic bladder, osteoporosis, peripheral neuropathy, protein S deficiency, TBI. Surgical: colonoscopy, fistula creation, renal transplant. PREVIOUS FUNCTIONAL STATUS/SOCIAL/FAMILY SUPPORTS:: Darlene is 53 yo single woman who lives in a [facility] in [place]. She has been there for several years. She has a sister, Nicol Gruber, who is her legal guardian. Her sister was apparently present on admission and reported that Darlene is usually not confused at baseline. She gets her care from staff at snf and a nurse Sarah Caruso RN CURRENT FUNCTIONAL STATUS:: Ayde reports she is feeling better since admission. She feels that she was not ready to return home at last discharge. was able to meet [facility] Gena today, Darlene and her sister would like to address her code status. Darlene 's goals are to attend two weddings this summer and feels this goal is attainable. She is hopeful she will be able to go [facility]. She reports quality of life has improved since the indwelling cath. ADVANCE DIRECTIVES:: Sister Nallely Gruber is her court appointed legal guardian. Copy of appointment is scanned into her record. Has patient been provided with information about the portal?: Yes Did the patient sign up for the portal?: No CODE STATUS:: Full Code INSURANCE COVERAGE / FINANCIAL ISSUES:: Medicare and Medicaid CURRENT HOME/COMMUNITY SERVICES/EQUIPMENT:: Gena lives in a snf in [place], [place]. She has private caregivers that are trained by RN in the home to provide care to Darlene. Darlene has a FWW, tube seat, wheelchair, and raised yael let seat at home. PRIMARY CARE PHYSICIAN:: POTENTIAL DISCHARGE NEEDS:: Referral SNF placement PATIENT/FAMILY EDUCATION NEEDS:: Discharge education, limitations and follow up plan of care. ANTICIPATED BARRIERS TO DISCHARGE:: SNF acceptence TRANSPORTATION:: Pending disposition. PLAN:: Darlene is currently receving care in the ICU including antibioitcs. She does not want any medications that would increase her blood pressure and she having conversations with her sister related to interventions she would want in the event she becomes more ill. Candie her guardian is present and would lke more information about addressing code status to assist her sister in decision making. CM will contact the court to identifiy proper paperwork to assist with task. Referral was provided to admissions at [facility] anticipate Darlene would be ready to be discharged on Saturday pending bed offer from facility. Her next palliaitve appointment is scheduled on 12/10/18 @ 1030 at the office. CM to continue to provide support to patient discharge planning and disposition. Readmission - Date of First Admission Date of 1st Admission: 10/19/18 - Date of this Admission Date of Admission: 10/28/18 This admission was: Through ED - Office Visit Since 1st Admission Have you seen your PCP in the office since discharge?: No Had an appointment Been Scheduled?: Yes Date of Scheduled Appointment: 11/03/18 - Speicalist Appointments Have you seen any other specialist since your 1st Admission?: No - I. Interview patient and/or Family Difficulty reaching your doctor or getting an office appt?: No Have you had trouble purchasing/ or taking medication?: No How do you take your medications and set up your pills?: snf provides medications and RN evals. Have you had trouble with getting meals at home?: No Did you feel ready for discharge when you left the last time: No (I think I was discharged to early) Why did you not feel ready for discharge?: I felt like I was not back to my baseline and I was not ready. Were services received that you thought were set up on disch: Yes - ED visits How many ED visits in the past 12 months: 3 - Assessment for Readmission Summary of readmission circumstances, based upon interviews: Darlene arrived home she continued to run intermittent fevers after discharge. She did go home with an indwelling cath and a follow up appointment. She begin to feel worse and was brought to the ED where she was admitted with fever of unknown origin. Blood cultures are pending. Darlene does state that she did not feel ready to return home she was hopeful once she got there she would feel better.
[2018-10-29 13:43] LABS: Tacrolimus 6.2 ng/ml
--- NOTE | 2018-10-29 13:58 | IN_ITS ---
Date of service: 10/29/18 Time of Service: 13:21 PT Notes Initial Inpatient Physical Therapy Evalaution Date: 10/29/2018 Referring Doctor: Renée Dumont MD PT Orders: PT CONSULT: Eval/treat Precautions: Fall. Standard. Seizure-prone. Activity as tolerated. Patient Profile/Admitting Diagnosis: Patient is a 53-year-old female with past medical history significant for status post renal transplant x 3, on immunosuppressives, and with neurogenic bladder who presented to the ED on 10/19/2018 with chief complaints of fever, malaise, and mild cough. Patient was diagnosed with fever of unknown origin, abdominal pain, new onset congestive heart failure, neuroigenic bladder, and hypercoagulable state. Referral was made today for functional mobility training, progressive strengthening, and balance training. PMHX: Medical History Chronic anticoagulation Chronic kidney disease Convulsions Hyperparathyroidism Neurogenic bladder Osteoporosis Peripheral neuropathy Protein S deficiency TBI (traumatic brain injury) Surgical History Colonoscopy - MAC (02/11/15) Fistula creation Renal Transplant Social History/Home Situation: Patient lives with a [place] [facility] a [place] to enter in [place], [place]. She is independent with all mobility ADLs using a 4 wheeled walker. She is able to manage bathing and dressing on her own but has a caregiver who takes care of medications, meals, laundry, grocery shopping, and medical transportation. Current Functional Limitations: Need for assistance in all transfer and ambulat ion task performance using FWW Equipment Owned/DME: FWW Subjective: Patient is agreeable to a PT consult today. She reports pain on bilateral knees with the left knee being more affected than the right. Sister and caregiver were present during the majority of evaluation who stated that patient is better with sneakers on. She hopes to go to a SNF soon as she is safe to do so. Objective: General Observation: Patient seen resting in bed. Noriega catheter in place. Left knee mildly swollen. Thoracic kyphosis noted. Genu varum observed in standing with bilateral feet eversion/pronation.. Mental Status: Alert and oriented x4 Pain: Mild to moderate pain on bilateral knee left knee affected than the right ROM: Right Upper Extremity: Shoulder Flexion WFL. Shoulder abduction WFL. Elbow flexion WFL. Wrist flexion WFL. Functional opening and closing of hand WFL. Left Upper Extremity: Shoulder Flexion WFL. Shoulder abduction WFL. Elbow flexion WFL. Wrist flexion WFL. Functional opening and closing of hand WFL. Right Lower Extremity: Hip flexion WFL. Hip abduction WFL. Knee flexion WFL. Ankle dorsiflexion 0-5. Ankle plantarflexion WFL. Left Lower Extremity: Hip flexion WFL. Hip abduction WFL. Knee flexion WFL. Ankle dorsiflexion 0-5. Ankle plantarflexion WFL. Strength: Right Upper Extremity: Shoulder flexors 4/5. Shoulder abductors 4/5. Elbow flexors 4/5. Elbow extensors 4/5. Data Modeling Specialist strong. Left Upper Extremity: Shoulder flexors 4/5. Shoulder abductors 4/5. Elbow flexors 4/5. Elbow extensors 4/5. Data Modeling Specialist strong. Right Lower Extremity: Hip flexors 3+/5. Hip abductors 4-/5. Knee flexors 4-/5. Knee extensors 3+/5. Ankle dorsiflexors 3-/5. Ankle plantarflexors 3-/5. Left Lower Extremity: Hip flexors 3+/5. Hip abductors 4-/5. Knee flexors 4-/5. Knee extensors 3+/5. Ankle dorsiflexors 3-/5. Ankle plantarflexors 3-/5. Sensation: Intact as to pain and pressure on bilateral lower extremities. Bed Mobility/Transfers: Rolling minimal assist Supine to sit minimal assist to bilateral LE due to pain complaints Sit to supine minimal assist to bilateral LE due to pain complaints Sit to stand CGA with bilateral UEs support and using FWW Stand to sit CGA with bilateral UEs support and using FWW Bed to chair CGA with bilateral UEs support and using FWW Chair to bed CGA with bilateral UEs support and using FWW Gait: Patient was able to tolerate level surface ambulation of 60 feet with a minimal assist provided using F WW with FWB. Bilateral feet eversion with general vera observed. Thoracic scoliosis noted. increased trunk flexion seen during gait activity. Decreased gait velocity with decreased bilateral knee flexion. Balance: Static Sitting: Good Dynamic Sitting: Fair Static Standing: Fair Dynamic Standing: Fair Special Tests: Mobility Limitations Standardized Measure [facility] 6 clicks Basic Mobility Inpatient Short Form: Raw Score: 18 CMS Score: 47% deficit Informed Consent/Education: Patient instructed in purpose of PT consult and plan of care. Assessment: 53-year-old female who is status post renal transplant x3 on immunosuppressives and with neurogenic bladder now with fever of unknown origin, abdominal pain, and new onset congestive heart failure. Patient presents with clinical signs and symptoms consistent with current/admitting diagnoses that have resulted to mobility limitations, gait instability, generalized weakness, and impairment of motor control as demonstrated by the following impairment level findings: 1. Decreased strength to B LE major muscle groups 2. Impaired sitting/standing balance 3. Impaired activity tolerance 4. Limitation of joint range of motion in bilateral ankles Impairments are contributing to the following functional limitations: 1. Dependent bed mobility skills 2. Increased dependence with transfers 3. Inability to safely ambulate without assistive device and physical assistance 4. Increase completion time for mobility ADL performance 5. Increased fall risk 6. Inability to negotiate steps alone safely Patient is assessed as a [id number] moderate complexity complexity based on the following: History: 53-year-old cognitively intact female status post renal transplant x3 on immunosuppression and with neurogenic bladder with past medical history as indicated above Examination: Demonstrable impairment in strength, balance, and range of motion with underlying impairments and functional limitations as documented above Presentation:Evolving Decision Makin moderate complexity Goals: Goals X1 week 1. Supine-Sit independent 2. Sit-Supine independent 3. Sit-Stand independent 4. Stand-Sit independent 5. Bed-Chair independent 6. Chair-Bed independent 7. Independent gait on level surface with use of least restrictive device for at least 100 feet without report of pain nor dyspnea 8. Independent with home exercise program 9. Good static and dynamic standing balance/tolerance Plan of Care/Treatment Plan: 1-2x/day, 7 days/week x 1 week. Plan of care has been reviewed with the BUSINESS TECHNOLOGY ARCHITECT providing the service under Physical Therapy direction. Initiate Physical Therapy intervention for strengthening, bed mobility, transfers, gait, stairs, balance training, use of assistive device. DISCHARGE RECOMMENDATIONS: Patient will benefit from [facility] facility placement in order to progress mobility level, strength, and balance in prepa ration for a safe discharge to home. TREATMENT CODE/TIME: 40036 x 35 minutes beginning at 13:21 PM. Thank you very much for this referral. Scarlet Jade PT, DPT, CLT [facility]
[2018-10-29] MEDS: levoFLOXacin 750 MG/150 ML BAG 100 MG IVPB (14:54)
[2018-10-29] MEDS: Hydrocortisone SOD SUC. 100 MG VIAL 50 MG IVP (18:30)
[2018-10-29] MEDS: Lidocaine 5% Patch 1 PATCH TP (18:31)
[2018-10-29] MEDS: Tacrolimus 0.5 MG CAP 1 MG PO (20:49)
[2018-10-30] VITALS (15 sets, daily range): BP systolic 95–133; BP diastolic 45–71; PULSE 58–71; RESP 14–21; TEMP 36.1–36.8; O2SAT 89–100
[2018-10-30] MEDS: Hydrocortisone SOD SUC. 100 MG VIAL 50 MG IVP ×2 (01:40→05:55)
[2018-10-30] MEDS: Normal Saline Flush 10 ML SYR IVP ×2 (01:43→05:56)
[2018-10-30] MEDS: CEFEPIME 1 GM in Normal Saline 50 ML IVPB (06:08)
[2018-10-30 06:23] LABS: Abs Immature Grans 0.02 k/cumm (0.0-0.09); Absolute Basophil Count 0.01 k/cumm (0.0-0.2); Absolute Eosinophil Count 0.01 k/cumm (0.0-0.7); Absolute Lymphocyte Count 0.49 k/cumm (1.2-3.4); Absolute Monocyte Count 0.26 k/cumm (0.11-0.7); Absolute Neutrophil Count 3.44 k/cumm (1.2-6.7); Basophils % 0.2; Eosinophils % 0.2; HCT 32.3 % (36.0-46.0); HGB 10.7 g/dL (12.0-15.5); Immature Grans % 0.5; Lymphocytes % 11.6; Mean Corp. HGB Concentration 33.1 g/dL (32.0-36.0); Mean Corpuscular Hemoglobin 27.5 pg (27.0-33.0); Mean Platelet Volume 8.9 fL (8.0-11.0); Monocytes % 6.1; Neutrophils % 81.4; Platelet Count 248 x1000/uL (130-400); RBC 3.89 m/cumm (4.00-5.20); White Blood Cell Count 4.23 k/cumm (4.4-10.8)
[2018-10-30 06:38] LABS: INR 3.9 (0.9-1.1); Prothrombin Time 39.6 sec (9.3-11.0)
[2018-10-30 06:42] LABS: Anion Gap 8.9 mmol/L (3-11); BUN 11 mg/dL (7-18); CO2 23.1 mmol/L (21.0-32.0); CREATININE 0.62 mg/dL (0.55-1.02); Calcium 8.3 mg/dL (8.5-10.1); Chloride 101 mmol/L (98-107); Glucose 194 mg/dL (70-100); Magnesium 1.6 mg/dL (1.8-2.4); Potassium 3.9 mmol/L (3.5-5.1); Sodium 133 mmol/L (136-145)
--- NOTE | 2018-10-30 08:24 | PGE_ITS ---
Date of Service Date of service: 10/30/18 Time of Service: 08:23 Assessment and Plan (1) Fever of unknown origin (FUO): Current visit: Yes Status: Acute Blood cultures with no growth to date; no evidence of PNA or UTI. Highest on differential is acute on chronic adrenal insufficiency. Kidney rejection is also on differential. Continue empiric antibiotics until tomorrow, then will discontinue vancomycin. Start to taper stress dose steroids. (2) Adrenal insufficiency: Current visit: Yes Status: Acute As above (3) History of kidney transplant: Current visit: Yes Status: Acute Continue anti-rejection medications. I will speak with Dr Mina (transplant doctor) about Darlene's wishes. (4) Acute on chronic diastolic CHF (congestive heart failure): Current visit: Yes Status: Acute As BP's have come up with IV steroids, ok to d/c IVF and start gentle diuresis. (5) Seizure disorder: Current visit: No Status: Chronic Continue keppra (6) Hypercoagulable state, primary: Current visit: No Status: Acute hold coumadin today (7) Neurogenic bladder: Current visit: No Status: Acute s/p kidd - continue. UA negative for a UTI. (8) Discharge planning issues: Current visit: No Status: Acute Full code, attempting to convert to DNR/DNI and possibly hospice. Appreciate palliative care's recommendations. I will speak with Dr Mina. Patient states she would like to go to [facility]. Transfer out of ICU (9) DVT prophylaxis: Current visit: No Status: Acute On therapeutic coumadin Subjective Interval history since last seen: OOB, feeling better today. Waves at me through the glass doors and says Raymundo Dumont, I'm feeling better! Denies dizziness, chest pain, shortness of breath, nausea, vomiting. 119/58. Squeeky murmur reported by nursing. Crackles at bases reported. Had a BM. Kidd in. Exam Narrative Exam Narrative: General: very pleasant female, sitting in a chair, looks brighter/happier, using her ipad HEENT: EOMI, MMM Heart: RRR, squeeky heart murmur - this is new Lungs: Crackles at B bases - actually better GI: abdomen is soft, nontender, nondistended Extremities: LUE AVF with palpable thrill and bruit; trace edema BLE's, no c/c; L hip with lidoderm patch, no erythema seen Objective Objective Clinical Data: Abnormal lab results 10/30/18 10/30/18 10/30/18 Range/Units 06:05 06:05 06:05 WBC 4.23 L (4.4-10.8) k/cumm RBC 3.89 L (4.00-5.20) m/cumm Hgb 10.7 L (12.0-15.5) g/dL Hct 32.3 L (36.0-46.0) % Absolute Lymphocytes 0.49 L (1.2-3.4) k/cumm PT 39.6 H D (9.3-11.0) sec INR 3.9 H D (0.9-1.1) Sodium 133 L (136-145) mmol/L Glucose 194 H D (70-100) mg/dL Calcium 8.3 L (8.5-10.1) mg/dL Magnesium 1.6 L (1.8-2.4) mg/dL Vital Signs Temperature 36.3 C L 10/29/18 18:20 Temperature Source Temporal Artery Scan 10/29/18 18:20 Pulse 63 10/30/18 03:59 Pulse Rhythm Regular 10/29/18 23:57 Pulse 65 10/30/18 03:59 Respiratory Rate 16 10/30/18 03:59 Respiratory Effort 10/30/18 04:34 Respiratory Depth Normal 10/30/18 04:34 Respiratory Pattern Normal 10/29/18 23:57 Blood Pressure 125/60 10/30/18 03:59 Blood Pressure Mean 76 10/30/18 03:59 Blood Pressure Position Sitting 10/28/18 12:26 Pulse Oximetry 95 10/29/18 18:20 Oxygen Delivery Method Room Air 10/29/18 18:20 Oxygen Flow Rate 0 10/29/18 18:20 Pain Level 0 10/29/18 18:20 Comment Temporal artery scan temperature at this time = 36.3 10/29/18 12:00 Intake & Output 10/29/18 10/29/18 10/30/18 11:59 23:59 11:59 Intake Total 1970 / 3270 1300 / 3270 610 / 610 Output Total 2100 / 3270 1170 / 3270 650 / 650 Balance -130 / 0 130 / 0 -40 / -40 Weight 58.7 kg 60.5 kg Intake: IV 1350 / 2150 800 / 2150 250 / 250 Oral 620 / 1120 500 / 1120 360 / 360 Output: Urine 2100 / 3270 1170 / 3270 650 / 650 Other: Urine Color Straw Yellow Yellow Urine Appearance Clear Clear Clear Comment Purulent drainage and oder are both absent at catheter insertion site and in urine. Pt. denies pain with urination. Stool Occult Blood Negative Stool Size Large Stool Characteristics Soft Formed Laboratory Results WBC 4.23 k/cumm (4.4-10.8) L 10/30/18 06:05 RBC 3.89 m/cumm (4.00-5.20) L 10/30/18 06:05 Hgb 10.7 g/dL (12.0-15.5) L 10/30/18 06:05 Hct 32.3 % (36.0-46.0) L 10/30/18 06:05 MCV 83.0 fL (80-95) 10/30/18 06:05 MCH 27.5 pg (27.0-33.0) 10/30/18 06:05 MCHC 33.1 g/dL (32.0-36.0) 10/30/18 06:05 RDW 14.0 % (11.7-14.6) 10/30/18 06:05 Plt Count 248 x1000/uL (130-400) 10/30/18 06:05 MPV 8.9 fL (8.0-11.0) 10/30/18 06:05 Immature Gran % 0.5 10/30/18 06:05 Neutrophils % 81.4 10/30/18 06:05 Lymphocytes % 11.6 10/30/18 06:05 Monocytes % 6.1 10/30/18 06:05 Eosinophils % 0.2 10/30/18 06:05 Basophils % 0.2 10/30/18 06:05 Absolute Neutrophils 3.44 k/cumm (1.2-6.7) 10/30/18 06:05 Absolute Lymphocytes 0.49 k/cumm (1.2-3.4) L 10/30/18 06:05 Absolute Monocytes 0.26 k/cumm (0.11-0.7) 10/30/18 06:05 Absolute Eosinophils 0.01 k/cumm (0.0-0.7) 10/30/18 06:05 Absolute Basophils 0.01 k/cumm (0.0-0.2) 10/30/18 06:05 PT 39.6 sec (9.3-11.0) H D 10/30/18 06:05 INR 3.9 (0.9-1.1) H D 10/30/18 06:05 APTT 37.2 sec (21.0-31.4) H 10/28/18 12:40 Sodium 133 mmol/L (136-145) L 10/30/18 06:05 Potassium 3.9 mmol/L (3.5-5.1) 10/30/18 06:05 Chloride 101 mmol/L (98-107) 10/30/18 06:05 Carbon Dioxide 23.1 mmol/L (21.0-32.0) 10/30/18 06:05 Anion Gap 8.9 mmol/L (3-11) 10/30/18 06:05 BUN 11 mg/dL (7-18) 10/30/18 06:05 Creatinine 0.62 mg/dL (0.55-1.02) 10/30/18 06:05 Estimated GFR/1.73 m2 >= 60.00 (mL/min/1.73m2) 10/30/18 06:05 Glucose 194 mg/dL (70-100) H D 10/30/18 06:05 Lactate 0.8 mmol/l (0.6-1.4) 10/28/18 12:40 Calcium 8.3 mg/dL (8.5-10.1) L 10/30/18 06:05 Magnesium 1.6 mg/dL (1.8-2.4) L 10/30/18 06:05 Total Bilirubin 0.9 mg/dL (0.2-1.0) 10/28/18 12:40 AST 32 U/L (15-37) 10/28/18 12:40 ALT 32 U/L (12-78) 10/28/18 12:40 Alkaline Phosphatase 57 U/L (46-116) 10/28/18 12:40 Total Protein 6.8 g/dL (6.4-8.2) 10/28/18 12:40 Albumin 2.7 g/dL (3.4-5.0) L 10/28/18 12:40 Procalcitonin < 0.1 ng/mL 10/28/18 12:40 Urine Color Yellow (Yellow) 10/28/18 13:05 Urine Clarity Clear (Clear) 10/28/18 13:05 Urine pH 8.5 (5-8) H 10/28/18 13:05 Ur Specific [place] 1.015 (1.005-1.025) 10/28/18 13:05 Urine Protein Negative mg/dL (Negative) 10/28/18 13:05 Urine Ketones Negative mg/dL (Negative) 10/28/18 13:05 Urine Blood Trace-intact (Negative) H 10/28/18 13:05 Urine Nitrite Negative (Negative) 10/28/18 13:05 Urine Bilirubin Negative (Negative) 10/28/18 13:05 Urine Urobilinogen 0.2 EU/dL (Up TO 0.2) 10/28/18 13:05 Ur Leukocyte Esterase Negative (Negative) 10/28/18 13:05 Urine RBC 3-5 (0-2) H 10/28/18 13:05 Urine WBC 0-2 HPF (0-5) 10/28/18 13:05 Ur Epithelial Cells Rare HPF (Negative) 10/28/18 13:05 Urine Crystals Negative HPF (Negative) 10/28/18 13:05 Urine Bacteria Rare HPF (Negative) 10/28/18 13:05 Urine Casts Negative LPF (Negative) 10/28/18 13:05 Urine Mucus Negative (Negative) 10/28/18 13:05 Ur Culture Indicated? C&s done as ordered 10/28/18 13:05 Urine Glucose Negative mg/dL (Negative) 10/28/18 13:05 Vancomycin Trough Cancelled 10/29/18 18:00 Tacrolimus 6.2 ng/ml 10/28/18 12:40
[2018-10-30] MEDS: Tacrolimus 0.5 MG CAP 2 MG PO (08:55)
[2018-10-30] MEDS: Citalopram 20 MG TAB PO (08:56)
[2018-10-30] MEDS: levETIRAcetam 500 MG TAB 1500 MG PO ×2 (08:56→19:58)
[2018-10-30] MEDS: Magnesium Oxide 400 MG TAB PO ×3 (08:56→19:59)
[2018-10-30] MEDS: MAGNESIUM SULFATE 2 GM/50 ML BAG IVPB (08:59)
[2018-10-30] MEDS: Furosemide 20 MG/2 ML VIAL IVP (09:00)
[2018-10-30] MEDS: Esomeprazole 40 MG CAPCR PO (09:01)
--- NOTE | 2018-10-30 09:03 | PT.INTREAT ---
Date of service: 10/30/18 Time of Service: 09:03 PT Notes 10/30/18 SUBJECTIVE: Pt stating she is feeling better today. She would like to get up to the recliner. OBJECTIVE: Supine in bed. Agreeable to PT treatment. TRANSFERS Supine to sit: Min A Sit to stand: min A Stand to sit: Min A GAIT Device: FWW Weight bearing: Full Assist: Min A Distance: 5'+15' Deviation: Fatigues quickly THEREX: Light LE strengthening exercises performed in seated position. She requires Max A for toileting. ASSESSMENT: Tolerates PT well today. Pt would benefit from continued physical therapy intervention to improve her gait distance and strength. PLAN: Continue per POC. Treatment time: 25 minutes [id number], [id number] Bonny Carrera, BICYCLE SERVICE TECHNICIAN
[2018-10-30] MEDS: Nystatin POWDER 15 GM JAR TP ×2 (09:19→19:57)
--- NOTE | 2018-10-30 10:13 | PDOC.CMPRO ---
- If Service Date Differs Date of service: 10/30/18 Time of Service: 10:13 Care Management Progress Note S/O: Darlene will transition to Medical surgical status today. She continues on IV antibiotics and stress dose steroids. Anticipate she will be discharged to [facility] when she is medically ready. Sister and family are present and supportive. No other changes today. A:Darlene is a 53 year old female admitted with fever status post discharge from [facility] recent UTI, and CHF and a history of kidney transplant. P:Darlene would like to be discharged to [facility] when medically ready. She will transport via wheelchair van and will continue her follow up with Palliative care.
--- NOTE | 2018-10-30 10:17 | CMPROGNOTE_ITS ---
- If Service Date Differs Date of service: 10/30/18 Time of Service: 10:13 Care Management Progress Note S/O: Darlene will transition to Medical surgical status today. She continues on IV antibiotics and stress dose steroids. Anticipate she will be discharged to [facility] when she is medically ready. Sister and family are present and supportive. No other changes today. A:Darlene is a 53 year old female admitted with fever status post discharge from [facility] recent UTI, and CHF and a history of kidney transplant. P:Darlene would like to be discharged to [facility] when medically ready. She will transport via wheelchair van and will continue her follow up with Palliative care.
[2018-10-30] MEDS: traMADol 50 MG TAB PO ×2 (11:06→21:28)
[2018-10-30 12:06] LABS: Vancomycin, Trough 23.7 ug/mL (10.0-20.0)
[2018-10-30] MEDS: Acetaminophen 325 MG TAB 650 MG PO (16:23)
[2018-10-30] MEDS: Lidocaine 5% Patch 1 PATCH TP (18:34)
[2018-10-30] MEDS: predniSONE 20 MG TAB 40 MG PO (19:28)
[2018-10-30] MEDS: levoFLOXacin 500 MG TAB PO (19:34)
[2018-10-30] MEDS: Amoxicillin 875/Clav. 125 TAB PO (19:58)
[2018-10-30] MEDS: Tacrolimus 0.5 MG CAP 1 MG PO (19:59)
--- NOTE | 2018-10-30 23:05 | NUR.NOTE ---
Darlene Berglaura was transferred from the Intensive Care Unit this evening to the Med-Surg unit. Assessment done and charted.
[2018-10-31] VITALS (7 sets, daily range): BP systolic 116–142; BP diastolic 59–68; PULSE 65–79; RESP 16–19; TEMP 36.1–37; O2SAT 96–99
--- NOTE | 2018-10-31 06:20 | NUR.NOTE ---
skin tear noted to the left elbow, tegaderm placed over the area. Buttocks reddened, incontinent ointment moisture applied.
[2018-10-31 07:05] LABS: Abs Immature Grans 0.02 k/cumm (0.0-0.09); Absolute Lymphocyte Count 0.52 k/cumm (1.2-3.4); Absolute Monocyte Count 0.23 k/cumm (0.11-0.7); HCT 32.3 % (36.0-46.0); HGB 10.5 g/dL (12.0-15.5); Immature Grans % 0.3; Lymphocytes % 7.9; Mean Corp. HGB Concentration 32.5 g/dL (32.0-36.0); Mean Corpuscular Hemoglobin 27.3 pg (27.0-33.0); Mean Corpuscular Volume 83.9 fL (80-95); Mean Platelet Volume 9.2 fL (8.0-11.0); Monocytes % 3.5; Neutrophils % 88.3; Platelet Count 297 x1000/uL (130-400); RBC 3.85 m/cumm (4.00-5.20); RBC Distribution Width 14.2 % (11.7-14.6); White Blood Cell Count 6.57 k/cumm (4.4-10.8)
[2018-10-31 07:14] LABS: Prothrombin Time 43.8 sec (9.3-11.0)
[2018-10-31 07:17] LABS: Anion Gap 5.3 mmol/L (3-11); BUN 20 mg/dL (7-18); CO2 26.7 mmol/L (21.0-32.0); CREATININE 0.75 mg/dL (0.55-1.02); Calcium 8.2 mg/dL (8.5-10.1); Chloride 100 mmol/L (98-107); Glucose 167 mg/dL (70-100); Magnesium 1.7 mg/dL (1.8-2.4); Sodium 132 mmol/L (136-145)
[2018-10-31 07:34] LABS: INR 4.3 (0.9-1.1)
[2018-10-31] MEDS: Esomeprazole 40 MG CAPCR PO ×2 (08:36→19:48)
[2018-10-31] MEDS: Magnesium Oxide 400 MG TAB 800 MG PO ×2 (08:36→19:49)
[2018-10-31] MEDS: levETIRAcetam 500 MG TAB 1500 MG PO ×2 (08:36→19:55)
[2018-10-31] MEDS: predniSONE 20 MG TAB 40 MG PO (08:36)
[2018-10-31] MEDS: Citalopram 20 MG TAB PO (08:37)
[2018-10-31] MEDS: predniSONE 5 MG TAB PO (08:37)
[2018-10-31] MEDS: Tacrolimus 0.5 MG CAP 2 MG PO (08:37)
[2018-10-31] MEDS: levoFLOXacin 500 MG TAB PO (09:36)
--- NOTE | 2018-10-31 09:57 | PT.INTREAT ---
Date of service: 10/31/18 Time of Service: 09:57 PT Notes Inpatient Physical Therapy Treatment Note [facility] Date: 10/31/18 PRECAUTIONS: Fall, Seizure SUBJECTIVE: Darlene states that she is feeling much better today, she states I'm getting stronger everyday. OBJECTIVE: PAIN: Patient c/o B knee pain with sit<>stand transfers in a.m.; no c/o pain in p.m. BED MOBILITY/TRANSFERS Sit-stand: Min A in a.m.; CGA in p.m. Stand-sit: Min A in a.m.; CGA in p.m. GAIT Assistive Device: FWW Weight bearing: Full Assist: CGA Distance: 150' in a.m.; 160' in p.m. Deviation: Slow bryn Static stand 2 x 2 minutes with FWW support and CGA. TOILETING: Patient toileted with assist ASSESSMENT: Patient tolerated a significant progression in gait distance today with FWW support and CGA. She would benefit from continued strengthening and gait and transfer training for improved mobility and improved activity tolerance. PLAN: Continue with PT's POC TREATMENT CODE/TIME: Session 1: 25 minutes; 69229 x2 Session 2: 30 minutes; [id number] x2
[2018-10-31] MEDS: Nystatin POWDER 15 GM JAR TP ×2 (10:51→19:57)
--- NOTE | 2018-10-31 15:11 | PDOC.CMPRO ---
- If Service Date Differs Date of service: 10/31/18 Time of Service: 15:11 Care Management Progress Note S/O:Darlene transition to oral medications she no longer has IV access. Darlene maintains a positive outlook. She states she has three goals two weddings one in October and the other in November and she found out she has a sister her mother gave up when she was born and she wants to meet her. Darlene is being stressed dose with steroids do to adrenal insufficiency. She maintains a kidd cath she does have follow up with on 11/10/18. [facility]VIS contacted the Probate court today and was told by the superior court justice Nicol (Darlene's sister and guardian) will need to just complete a request for modification of code status and once that is granted they can complete the COLST from with palliative care provider. Nicol is tearful at times when she discussed the outcome, she states she just wants her sister to be happy and have edgar in her life. [facility] continue to review the referral, Darlene can not be discharged over the weekend r/t SNF not being able to take admissions over the weekend. A:Darlene is a 53 year old female admitted with fever status post discharge from [facility] recent UTI, and CHF and a history of kidney transplant. P:Darlene would like to be discharged to [facility] when medically ready. She will transport via wheelchair van and will continue her follow up with Palliative care.
--- NOTE | 2018-10-31 15:19 | CMPROGNOTE_ITS ---
- If Service Date Differs Date of service: 10/31/18 Time of Service: 15:11 Care Management Progress Note S/O:Darlene transition to oral medications she no longer has IV access. Darlene maintains a positive outlook. She states she has three goals two weddings one in October and the other in November and she found out she has a sister her mother gave up when she was born and she wants to meet her. Darlene is being stressed dose with steroids do to adrenal insufficiency. She maintains a kidd cath she does have follow up with on 11/10/18. TRAVIS contacted the Probate court today and was told by the district court administrator Nicol (Darlene's sister and guardian) will need to just complete a request for modification of code status and once that is granted they can complete the COLST from with palliative care provider. Nicol is tearful at times when she discussed the outcome, she states she just wants her sister to be happy and have edgar in her life. [facility] continue to review the referral, Darlene can not be discharged over the weekend r/t SNF not being able to take admissions over the weekend. A:Darlene is a 53 year old female admitted with fever status post discharge from [facility] recent UTI, and CHF and a history of kidney transplant. P:Darlene would like [facility] medically ready. She will transport via wheelchair van and will continue her follow up with Palliative care.
[2018-10-31] MEDS: Mylanta Suspension 30 ML CUP PO (16:25)
--- NOTE | 2018-10-31 16:52 | PGE_ITS ---
Date of Service Date of service: 10/31/18 Time of Service: 16:43 Assessment and Plan (1) Fever of unknown origin (FUO): Current visit: Yes Status: Resolved The source is now known - acute adrenal insufficiency (2) Adrenal insufficiency: Current visit: Yes Status: Acute The likely cause of fever. No evidence of acute infection with negative UA/CXR, but she is a known colonizer of VRE. No evidence of kidney rejection Patient lost IV access. She was transitioned from vanco/cefepime/levofloxacin to augmentin + levofloxacin yesterday evening. Augmentin was d/c'ed today. Remains afebrile without signs of infection. Needs to be on a very slow taper - would decrease prednisone by 10 mg every 3-4 days. (3) History of kidney transplant: Current visit: Yes Status: Acute Continue anti-rejection medications. I spoke with Dr Mina's office - he is not in the office at this time, but I spoke with his nurse, who will relay the message to him. (4) Acute on chronic diastolic CHF (congestive heart failure): Current visit: Yes Status: Acute Continue diuresis - BP's are tolerating (5) Seizure disorder: Current visit: No Status: Chronic Continue keppra (6) Hypercoagulable state, primary: Current visit: No Status: Acute hold coumadin due to supratherapeutic INR (7) Neurogenic bladder: Current visit: No Status: Acute s/p kidd - continue. UA negative for a UTI. E. faecium in urine is colonization. (8) Discharge planning issues: Current visit: No Status: Acute Full code, attempting to convert to DNR/DNI and possibly hospice via courts Appreciate palliative care's recommendations. Spoke with Dr Mina's office in regards to patient's wishes. Patient states she would like to go [facility]. She will be medically stable for discharge on Saturday assuming she does not respike fevers as her antibiotics are being sequentially (9) DVT prophylaxis: Current visit: No Status: Acute On therapeutic coumadin Subjective Interval history since last seen: Darlene complains of epigastric pain today and feeling a little nauseated. She denies dizziness, abdominal pain, shortness of breath. Exam Narrative Exam Narrative: General: very pleasant female, sitting in a chair, looks brighter/happier, cheeks more pink HEENT: EOMI, MMM Heart: RRR, no m/r/g heard today Lungs: quiet bibasilar crackles heard GI: abdomen is soft, tender in epigastrium, nondistended Extremities: LUE AVF with palpable thrill and bruit; trace edema BLE's, no c/c Objective Objective Clinical Data: Abnormal lab results 10/31/18 10/31/18 10/31/18 Range/Units 06:40 06:40 06:40 RBC 3.85 L (4.00-5.20) m/cumm Hgb 10.5 L (12.0-15.5) g/dL Hct 32.3 L (36.0-46.0) % Absolute Lymphocytes 0.52 L (1.2-3.4) k/cumm PT 43.8 H (9.3-11.0) sec INR 4.3 H* (0.9-1.1) Sodium 132 L (136-145) mmol/L BUN 20 H D (7-18) mg/dL Glucose 167 H (70-100) mg/dL Calcium 8.2 L (8.5-10.1) mg/dL Magnesium 1.7 L (1.8-2.4) mg/dL Vital Signs Temperature 37.0 C 10/31/18 16:05 Temperature Source Tympanic 10/31/18 16:05 Pulse 68 10/31/18 16:05 Pulse Rhythm Regular 10/31/18 15:48 Pulse 66 10/30/18 15:05 Respiratory Rate 17 10/31/18 16:05 Respiratory Effort Non-Labored 10/31/18 15:48 Respiratory Depth Normal 10/31/18 15:48 Respiratory Pattern Normal 10/31/18 15:48 Blood Pressure 116/59 L 10/31/18 16:05 Blood Pressure Mean 79 10/30/18 18:30 Blood Pressure Position Sitting 10/28/18 12:26 Pulse Oximetry 96 10/31/18 16:05 Oxygen Delivery Method Room Air 10/31/18 16:05 Oxygen Flow Rate 0 10/31/18 16:05 Pain Level 2 10/31/18 16:05 Comment Temporal artery scan temperature at this time = 36.3 10/29/18 12:00 Intake & Output 10/30/18 10/31/18 10/31/18 23:59 11:59 23:59 Intake Total 400 / 1410 250 / 490 240 / 490 Output Total 350 / 2250 725 / 725 Balance 50 / -840 -475 / -235 240 / -235 Weight 60.8 kg Intake: Oral 400 / 1110 250 / 490 240 / 490 Output: Urine 350 / 2250 725 / 725 Other: Urine Color Pale Yellow Yellow Urine Appearance Clear Clear Clear Comment Indwelling Kidd catheter. Stool Size Small Large Stool Characteristics Formed Soft Hard Formed Laboratory Results WBC 6.57 k/cumm (4.4-10.8) D 10/31/18 06:40 RBC 3.85 m/cumm (4.00-5.20) L 10/31/18 06:40 Hgb 10.5 g/dL (12.0-15.5) L 10/31/18 06:40 Hct 32.3 % (36.0-46.0) L 10/31/18 06:40 MCV 83.9 fL (80-95) 10/31/18 06:40 MCH 27.3 pg (27.0-33.0) 10/31/18 06:40 MCHC 32.5 g/dL (32.0-36.0) 10/31/18 06:40 RDW 14.2 % (11.7-14.6) 10/31/18 06:40 Plt Count 297 x1000/uL (130-400) 10/31/18 06:40 MPV 9.2 fL (8.0-11.0) 10/31/18 06:40 Immature Gran % 0.3 10/31/18 06:40 Neutrophils % 88.3 10/31/18 06:40 Lymphocytes % 7.9 10/31/18 06:40 Monocytes % 3.5 10/31/18 06:40 Eosinophils % 0.0 10/31/18 06:40 Basophils % 0.0 10/31/18 06:40 Absolute Neutrophils 5.80 k/cumm (1.2-6.7) 10/31/18 06:40 Absolute Lymphocytes 0.52 k/cumm (1.2-3.4) L 10/31/18 06:40 Absolute Monocytes 0.23 k/cumm (0.11-0.7) 10/31/18 06:40 Absolute Eosinophils 0.00 k/cumm (0.0-0.7) 10/31/18 06:40 Absolute Basophils 0.00 k/cumm (0.0-0.2) 10/31/18 06:40 PT 43.8 sec (9.3-11.0) H 10/31/18 06:40 INR 4.3 (0.9-1.1) H* 10/31/18 06:40 APTT 37.2 sec (21.0-31.4) H 10/28/18 12:40 Sodium 132 mmol/L (136-145) L 10/31/18 06:40 Potassium 4.0 mmol/L (3.5-5.1) 10/31/18 06:40 Chloride 100 mmol/L (98-107) 10/31/18 06:40 Carbon Dioxide 26.7 mmol/L (21.0-32.0) 10/31/18 06:40 Anion Gap 5.3 mmol/L (3-11) 10/31/18 06:40 BUN 20 mg/dL (7-18) H D 10/31/18 06:40 Creatinine 0.75 mg/dL (0.55-1.02) 10/31/18 06:40 Estimated GFR/1.73 m2 >= 60.00 (mL/min/1.73m2) 10/31/18 06:40 Glucose 167 mg/dL (70-100) H 10/31/18 06:40 Lactate 0.8 mmol/l (0.6-1.4) 10/28/18 12:40 Calcium 8.2 mg/dL (8.5-10.1) L 10/31/18 06:40 Magnesium 1.7 mg/dL (1.8-2.4) L 10/31/18 06:40 Total Bilirubin 0.9 mg/dL (0.2-1.0) 10/28/18 12:40 AST 32 U/L (15-37) 10/28/18 12:40 ALT 32 U/L (12-78) 10/28/18 12:40 Alkaline Phosphatase 57 U/L (46-116) 10/28/18 12:40 Total Protein 6.8 g/dL (6.4-8.2) 10/28/18 12:40 Albumin 2.7 g/dL (3.4-5.0) L 10/28/18 12:40 Procalcitonin < 0.1 ng/mL 10/28/18 12:40 Urine Color Yellow (Yellow) 10/28/18 13:05 Urine Clarity Clear (Clear) 10/28/18 13:05 Urine pH 8.5 (5-8) H 10/28/18 13:05 Ur Specific [facility] 1.015 (1.005-1.025) 10/28/18 13:05 Urine Protein Negative mg/dL (Negative) 10/28/18 13:05 Urine Ketones Negative mg/dL (Negative) 10/28/18 13:05 Urine Blood Trace-intact (Negative) H 10/28/18 13:05 Urine Nitrite Negative (Negative) 10/28/18 13:05 Urine Bilirubin Negative (Negative) 10/28/18 13:05 Urine Urobilinogen 0.2 EU/dL (Up TO 0.2) 10/28/18 13:05 Ur Leukocyte Esterase Negative (Negative) 10/28/18 13:05 Urine RBC 3-5 (0-2) H 10/28/18 13:05 Urine WBC 0-2 HPF (0-5) 10/28/18 13:05 Ur Epithelial Cells Rare HPF (Negative) 10/28/18 13:05 Urine Crystals Negative HPF (Negative) 10/28/18 13:05 Urine Bacteria Rare HPF (Negative) 10/28/18 13:05 Urine Casts Negative LPF (Negative) 10/28/18 13:05 Urine Mucus Negative (Negative) 10/28/18 13:05 Ur Culture Indicated? C&s done as ordered 10/28/18 13:05 Urine Glucose Negative mg/dL (Negative) 10/28/18 13:05 Vancomycin Trough 23.7 ug/mL (10.0-20.0) H* 10/30/18 11:12 Tacrolimus 6.2 ng/ml 10/28/18 12:40
[2018-10-31] MEDS: Lidocaine 5% Patch 1 PATCH TP (17:15)
[2018-10-31] MEDS: Tacrolimus 0.5 MG CAP 1 MG PO (19:54)
[2018-10-31] MEDS: traMADol 50 MG TAB PO (22:07)
[2018-11-01 04:30] VITALS: BP 120/76; PULSE 75; RESP 18; TEMP 36.5; O2SAT 97
[2018-11-01] MEDS: Acetaminophen 325 MG TAB 650 MG PO (06:17)
[2018-11-01] MEDS: Nystatin POWDER 15 GM JAR TP ×2 (07:47→20:14)
[2018-11-01] MEDS: levETIRAcetam 500 MG TAB 1500 MG PO ×2 (07:48→20:11)
[2018-11-01] MEDS: Citalopram 20 MG TAB PO (07:48)
[2018-11-01] MEDS: Magnesium Oxide 400 MG TAB 800 MG PO ×3 (07:48→20:12)
[2018-11-01] MEDS: levoFLOXacin 500 MG TAB PO (07:48)
[2018-11-01] MEDS: Esomeprazole 40 MG CAPCR PO ×2 (07:48→20:13)
[2018-11-01 07:49] LABS: Abs Immature Grans 0.07 k/cumm (0.0-0.09); Absolute Basophil Count 0.02 k/cumm (0.0-0.2); Absolute Eosinophil Count 0.03 k/cumm (0.0-0.7); Absolute Lymphocyte Count 1.18 k/cumm (1.2-3.4); Absolute Monocyte Count 0.89 k/cumm (0.11-0.7); Absolute Neutrophil Count 8.16 k/cumm (1.2-6.7); Basophils % 0.2; Eosinophils % 0.3; HCT 33.8 % (36.0-46.0); HGB 10.8 g/dL (12.0-15.5); Immature Grans % 0.7; Lymphocytes % 11.4; Mean Corpuscular Volume 84.5 fL (80-95); Monocytes % 8.6; Neutrophils % 78.8; Platelet Count 343 x1000/uL (130-400); RBC Distribution Width 14.3 % (11.7-14.6); White Blood Cell Count 10.35 k/cumm (4.4-10.8)
[2018-11-01] MEDS: Tacrolimus 0.5 MG CAP 2 MG PO (07:49)
[2018-11-01] MEDS: predniSONE 20 MG TAB 40 MG PO (07:49)
[2018-11-01 07:56] LABS: Anion Gap 7.6 mmol/L (3-11); BUN 15 mg/dL (7-18); CO2 27.4 mmol/L (21.0-32.0); CREATININE 0.67 mg/dL (0.55-1.02); Chloride 102 mmol/L (98-107); Glucose 87 mg/dL (70-100); Magnesium 1.7 mg/dL (1.8-2.4); Sodium 137 mmol/L (136-145)
[2018-11-01 08:03] LABS: INR 2.8 (0.9-1.1); Prothrombin Time 28.6 sec (9.3-11.0)
[2018-11-01] MEDS: traMADol 50 MG TAB PO ×2 (09:15→20:12)
[2018-11-01 09:41] VITALS: BP 122/68; PULSE 68; RESP 18; TEMP 36.4; O2SAT 98
--- NOTE | 2018-11-01 10:07 | PT.INTREAT ---
Date of service: 11/01/18 Time of Service: 10:07 PT Notes 11/01/18 SUBJECTIVE: Darlene stating she is confused and upset that she does not know her plan upon discharge. She notes her LE's are stiff this AM. OBJECTIVE: Agreeable to PT. TRANSFERS Sit to stand: CGA Stand to sit: CGA GAIT Device: FWW Weight bearing: Full Assist: CGA Distance: 120' Deviation: slow bryn THEREX: Seated UE/LE strengthening exercises performed in her chair. See flow sheet. ASSESSMENT: Tolerates PT well with progressions in her strengthening exercises. No LOB during gait and she is slow and cautious. PLAN: Continue current POC progression towards established goals. Treatment time: 20' [id number] oBnny Carrera, LOT ASSOCIATE
--- NOTE | 2018-11-01 10:10 | PTTR_ITS ---
Date of service: 11/01/18 Time of Service: 10:07 PT Notes 11/01/18 SUBJECTIVE: Darlene stating she is confused and upset that she does not know her plan upon discharge. She notes her LE's are stiff this AM. OBJECTIVE: Agreeable to PT. TRANSFERS Sit to stand: CGA Stand to sit: CGA GAIT Device: FWW Weight bearing: Full Assist: CGA Distance: 120' Deviation: slow bryn THEREX: Seated UE/LE strengthening exercises performed in her chair. See flow sheet. ASSESSMENT: Tolerates PT well with progressions in her strengthening exercises. No LOB during gait and she is slow and cautious. PLAN: Continue current POC progression towards established goals. Treatment time: 20' [id number] Bonny Carrera, RUN LEAD
[2018-11-01 11:13] LABS: Iron 44 ug/dL (50-175); Total Iron Binding Capacity 176 ug/dL (250-450); Transferrin Sat 25 % (15-50)
[2018-11-01 11:38] LABS: Ferritin 315 ng/mL (8-388); Folate 14.2 ng/mL (8.6-20.0); Vitamin B12 617 pg/mL (193-986)
[2018-11-01 11:55] VITALS: BP 105/56; PULSE 74; RESP 18; TEMP 36; O2SAT 95
--- NOTE | 2018-11-01 13:02 | PGE_ITS ---
Date of Service Date of service: 11/01/18 Time of Service: 13:02 Assessment and Plan (1) Discharge planning issues: Current visit: No Status: Acute Full code, attempting to convert to DNR/DNI and possibly hospice via courts Appreciate palliative care's recommendations. Spoke with Dr Mina's office in regards to patient's wishes. Patient states [facility] She will be medically stable for discharge on Saturday assuming she does not respike fevers as her antibiotics are being sequentially (2) Fever of unknown origin (FUO): Start date: 11/01/18 Start time: 13:06 Current visit: Yes Status: Resolved The source is now known - acute adrenal insufficiency Afebrile overnight (3) Adrenal insufficiency: Start date: 11/01/18 Start time: 13:08 Current visit: Yes Status: Acute The likely cause of fever. No evidence of acute infection with negative UA/CXR, but she is a known colonizer of VRE. No evidence of kidney rejection Patient lost IV access. She was transitioned from vanco/cefepime/levofloxacin to augmentin + levofloxacin yesterday evening. Augmentin was d/c'ed today. Remains afebrile without signs of infection. Needs to be on a very slow taper - would decrease prednisone by 10 mg every 3-4 days. (4) History of kidney transplant: Start date: 11/01/18 Start time: 13:08 Current visit: Yes Status: Acute Continue anti-rejection medications. (5) Acute on chronic diastolic CHF (congestive heart failure): Start date: 11/01/18 Start time: 13:09 Current visit: Yes Status: Acute Continue diuresis - BP's are tolerating (6) Seizure disorder: Start date: 11/01/18 Start time: 13:09 Current visit: No Status: Chronic Continue keppra (7) Hypercoagulable state, primary: Start date: 11/01/18 Start time: 13:21 Current visit: No Status: Acute 2.8, resume todays dose and recheck in the am (8) Neurogenic bladder: Start date: 11/01/18 Start time: 13:20 Current visit: No Status: Acute s/p kidd - continue. UA negative for a UTI. E. faecium in urine is colonization. (9) DVT prophylaxis: Start date: 11/01/18 Start time: 13:20 Current visit: No Status: Acute On therapeutic coumadin Subjective Patient reports: feels better Interval history since last seen: Doing well today. No complaints. Afebrile. Denies, CP, SOB, n/v/d. Exam Narrative Exam Narrative: General: very pleasant female, sitting in a chair, looks well HEENT: EOMI, MMM Heart: RRR, no m/r/g heard today Lungs: LSCTAB GI: abdomen is soft, tender in epigastrium, nondistended Extremities: LUE AVF with palpable thrill and bruit; trace edema BLE's, no c/c Objective Objective Clinical Data: Abnormal lab results 11/01/18 11/01/18 11/01/18 Range/Units 06:45 06:45 06:45 Hgb 10.8 L (12.0-15.5) g/dL Hct 33.8 L (36.0-46.0) % Absolute Neutrophils 8.16 H (1.2-6.7) k/cumm Absolute Lymphocytes 1.18 L (1.2-3.4) k/cumm Absolute Monocytes 0.89 H (0.11-0.7) k/cumm PT 28.6 H D (9.3-11.0) sec INR 2.8 H D (0.9-1.1) Calcium 8.0 L (8.5-10.1) mg/dL Magnesium 1.7 L (1.8-2.4) mg/dL Iron (50-175) ug/dL TIBC (250-450) ug/dL 11/01/18 Range/Units 06:45 Hgb (12.0-15.5) g/dL Hct (36.0-46.0) % Absolute Neutrophils (1.2-6.7) k/cumm Absolute Lymphocytes (1.2-3.4) k/cumm Absolute Monocytes (0.11-0.7) k/cumm PT (9.3-11.0) sec INR (0.9-1.1) Calcium (8.5-10.1) mg/dL Magnesium (1.8-2.4) mg/dL Iron 44 L (50-175) ug/dL TIBC 176 L (250-450) ug/dL Vital Signs Temperature 36 C L 11/01/18 11:55 Temperature Source Tympanic 11/01/18 11:55 Pulse 74 11/01/18 11:55 Pulse Rhythm Regular 11/01/18 07:30 Pulse 66 10/30/18 15:05 Respiratory Rate 18 11/01/18 11:55 Respiratory Effort Non-Labored 11/01/18 07:30 Respiratory Depth Normal 11/01/18 07:30 Respiratory Pattern Normal 11/01/18 07:30 Blood Pressure 105/56 L 11/01/18 11:55 Blood Pressure Mean 79 10/30/18 18:30 Blood Pressure Position Sitting 10/28/18 12:26 Pulse Oximetry 95 11/01/18 11:55 Oxygen Delivery Method Room Air 11/01/18 11:55 Oxygen Flow Rate 0 11/01/18 11:55 Pain Level 0 11/01/18 10:15 Comment Temporal artery scan temperature at this time = 36.3 10/29/18 12:00 Intake & Output 10/31/18 11/01/18 11/01/18 23:59 11:59 23:59 Intake Total 1180 / 1430 200 / 200 Output Total 500 / 1225 825 / 825 Balance 680 / 205 -625 / -625 Weight 59.6 kg Intake: IV 50 / 50 Oral 1130 / 1380 200 / 200 Output: Urine 500 / 1225 825 / 825 Other: Urine Color Yellow Yellow Urine Appearance Clear Clear Stool Size Smear Moderate Stool Characteristics Soft Formed Formed Laboratory Results WBC 10.35 k/cumm (4.4-10.8) D 11/01/18 06:45 RBC 4.00 m/cumm (4.00-5.20) 11/01/18 06:45 Hgb 10.8 g/dL (12.0-15.5) L 11/01/18 06:45 Hct 33.8 % (36.0-46.0) L 11/01/18 06:45 MCV 84.5 fL (80-95) 11/01/18 06:45 MCH 27.0 pg (27.0-33.0) 11/01/18 06:45 MCHC 32.0 g/dL (32.0-36.0) 11/01/18 06:45 RDW 14.3 % (11.7-14.6) 11/01/18 06:45 Plt Count 343 x1000/uL (130-400) 11/01/18 06:45 MPV 9.0 fL (8.0-11.0) 11/01/18 06:45 Immature Gran % 0.7 11/01/18 06:45 Neutrophils % 78.8 11/01/18 06:45 Lymphocytes % 11.4 11/01/18 06:45 Monocytes % 8.6 11/01/18 06:45 Eosinophils % 0.3 11/01/18 06:45 Basophils % 0.2 11/01/18 06:45 Absolute Neutrophils 8.16 k/cumm (1.2-6.7) H 11/01/18 06:45 Absolute Lymphocytes 1.18 k/cumm (1.2-3.4) L 11/01/18 06:45 Absolute Monocytes 0.89 k/cumm (0.11-0.7) H 11/01/18 06:45 Absolute Eosinophils 0.03 k/cumm (0.0-0.7) 11/01/18 06:45 Absolute Basophils 0.02 k/cumm (0.0-0.2) 11/01/18 06:45 PT 28.6 sec (9.3-11.0) H D 11/01/18 06:45 INR 2.8 (0.9-1.1) H D 11/01/18 06:45 APTT 37.2 sec (21.0-31.4) H 10/28/18 12:40 Sodium 137 mmol/L (136-145) 11/01/18 06:45 Potassium 4.0 mmol/L (3.5-5.1) 11/01/18 06:45 Chloride 102 mmol/L (98-107) 11/01/18 06:45 Carbon Dioxide 27.4 mmol/L (21.0-32.0) 11/01/18 06:45 Anion Gap 7.6 mmol/L (3-11) 11/01/18 06:45 BUN 15 mg/dL (7-18) 11/01/18 06:45 Creatinine 0.67 mg/dL (0.55-1.02) 11/01/18 06:45 Estimated GFR/1.73 m2 >= 60.00 (mL/min/1.73m2) 11/01/18 06:45 Glucose 87 mg/dL (70-100) D 11/01/18 06:45 Lactate 0.8 mmol/l (0.6-1.4) 10/28/18 12:40 Calcium 8.0 mg/dL (8.5-10.1) L 11/01/18 06:45 Magnesium 1.7 mg/dL (1.8-2.4) L 11/01/18 06:45 Iron 44 ug/dL (50-175) L 11/01/18 06:45 TIBC 176 ug/dL (250-450) L 11/01/18 06:45 Transferrin % Sat 25 % (15-50) 11/01/18 06:45 Ferritin 315 ng/mL (8-388) 11/01/18 06:45 Total Bilirubin 0.9 mg/dL (0.2-1.0) 10/28/18 12:40 AST 32 U/L (15-37) 10/28/18 12:40 ALT 32 U/L (12-78) 10/28/18 12:40 Alkaline Phosphatase 57 U/L (46-116) 10/28/18 12:40 Total Protein 6.8 g/dL (6.4-8.2) 10/28/18 12:40 Albumin 2.7 g/dL (3.4-5.0) L 10/28/18 12:40 Vitamin B12 617 pg/mL (193-986) 11/01/18 06:45 Folate 14.2 ng/mL (8.6-20.0) 11/01/18 06:45 Procalcitonin < 0.1 ng/mL 10/28/18 12:40 Urine Color Yellow (Yellow) 10/28/18 13:05 Urine Clarity Clear (Clear) 10/28/18 13:05 Urine pH 8.5 (5-8) H 10/28/18 13:05 Ur Specific [facility] 1.015 (1.005-1.025) 10/28/18 13:05 Urine Protein Negative mg/dL (Negative) 10/28/18 13:05 Urine Ketones Negative mg/dL (Negative) 10/28/18 13:05 Urine Blood Trace-intact (Negative) H 10/28/18 13:05 Urine Nitrite Negative (Negative) 10/28/18 13:05 Urine Bilirubin Negative (Negative) 10/28/18 13:05 Urine Urobilinogen 0.2 EU/dL (Up TO 0.2) 10/28/18 13:05 Ur Leukocyte Esterase Negative (Negative) 10/28/18 13:05 Urine RBC 3-5 (0-2) H 10/28/18 13:05 Urine WBC 0-2 HPF (0-5) 10/28/18 13:05 Ur Epithelial Cells Rare HPF (Negative) 10/28/18 13:05 Urine Crystals Negative HPF (Negative) 10/28/18 13:05 Urine Bacteria Rare HPF (Negative) 10/28/18 13:05 Urine Casts Negative LPF (Negative) 10/28/18 13:05 Urine Mucus Negative (Negative) 10/28/18 13:05 Ur Culture Indicated? C&s done as ordered 10/28/18 13:05 Urine Glucose Negative mg/dL (Negative) 10/28/18 13:05 Vancomycin Trough 23.7 ug/mL (10.0-20.0) H* 10/30/18 11:12 Tacrolimus 6.2 ng/ml 10/28/18 12:40
--- NOTE | 2018-11-01 15:00 | CMPROGNOTE_ITS ---
- If Service Date Differs Date of service: 11/01/18 Time of Service: 14:58 Care Management Progress Note S/O:Darlene remains inpatient over the weekend she continues on stress dose steroids. Plan will be to transition to SNF on Saturday pending bed availability. Darlene remains in good spirts and has visited with her family today. She continues to have an indwelling kidd which aurelio remain at time of discharge. A:Darlene is a 53 year old female admitted with fever status post discharge from [facility] recent UTI, and CHF and a history of kidney transplant. P:Darlene would [facility]. She will transport via wheelchair van and will continue her follow up with Palliative care.
[2018-11-01 16:09] VITALS: BP 114/58; PULSE 71; RESP 17; TEMP 36.5; O2SAT 96
[2018-11-01] MEDS: Warfarin 5 MG TAB PO (16:16)
[2018-11-01] MEDS: Lidocaine 5% Patch 1 PATCH TP (18:09)
[2018-11-01 19:33] VITALS: BP 116/64; PULSE 71; RESP 14; TEMP 36.6; O2SAT 98
[2018-11-01] MEDS: Tacrolimus 0.5 MG CAP 1 MG PO (20:11)
[2018-11-02] VITALS (8 sets, daily range): BP systolic 102–131; BP diastolic 58–77; PULSE 68–77; RESP 14–18; TEMP 35.1–37.1; O2SAT 96–99
[2018-11-02 07:24] LABS: Absolute Basophil Count 0.02 k/cumm (0.0-0.2); Absolute Eosinophil Count 0.11 k/cumm (0.0-0.7); Absolute Lymphocyte Count 1.17 k/cumm (1.2-3.4); Absolute Monocyte Count 0.62 k/cumm (0.11-0.7); Absolute Neutrophil Count 5.67 k/cumm (1.2-6.7); Basophils % 0.3; Eosinophils % 1.4; HCT 29.8 % (36.0-46.0); HGB 9.4 g/dL (12.0-15.5); Immature Grans % 1.3; Lymphocytes % 15.2; Mean Corp. HGB Concentration 31.5 g/dL (32.0-36.0); Mean Corpuscular Hemoglobin 27.1 pg (27.0-33.0); Mean Corpuscular Volume 85.9 fL (80-95); Monocytes % 8.1; Neutrophils % 73.7; Platelet Count 313 x1000/uL (130-400); RBC 3.47 m/cumm (4.00-5.20); RBC Distribution Width 14.4 % (11.7-14.6); White Blood Cell Count 7.69 k/cumm (4.4-10.8)
[2018-11-02 07:34] LABS: INR 2.9 (0.9-1.1); Prothrombin Time 29.1 sec (9.3-11.0)
[2018-11-02 07:36] LABS: BUN 15 mg/dL (7-18); CREATININE 0.59 mg/dL (0.55-1.02); Chloride 101 mmol/L (98-107); Glucose 87 mg/dL (70-100); Magnesium 1.9 mg/dL (1.8-2.4); Potassium 3.9 mmol/L (3.5-5.1); Sodium 135 mmol/L (136-145)
--- NOTE | 2018-11-02 08:11 | PT.INTREAT ---
Date of service: 11/02/18 Time of Service: 08:11 PT Notes 11/02/18 SUBJECTIVE: Darlene stating she is stiff in the bed. She would like to get up and go to the bathroom. OBJECTIVE: Supine in bed. Agreeable to PT. TRANSFERS Supine to sit: CGA Sit to stand: CGA Stand to sit: CGA GAIT Device: FWW Weight bearing: Full Assist: CGA Distance: 15'+120' Deviation: Slow cautious bryn. THEREX: light LE strengthening in supine postion. Pt able to tolerate SLR actively bilaterally. See flow sheet. ASSESSMENT: Pt is becoming more indepdent with transfers from supine to sit and sit to stand. She ambulates without LOB although with slow cautious gait. PLAN: Continue current POC progressing toward's established goals. treatment time: 20 [id number] [id number] Bonny Carrera, MUSEUM TECHNICIAN
[2018-11-02] MEDS: predniSONE 10 MG TAB 30 MG PO (08:22)
[2018-11-02] MEDS: Tacrolimus 0.5 MG CAP 2 MG PO (08:23)
[2018-11-02] MEDS: predniSONE 5 MG TAB PO (08:23)
[2018-11-02] MEDS: Citalopram 20 MG TAB PO (08:23)
[2018-11-02] MEDS: levoFLOXacin 500 MG TAB PO (08:23)
[2018-11-02] MEDS: Esomeprazole 40 MG CAPCR PO ×2 (08:24→19:47)
[2018-11-02] MEDS: levETIRAcetam 500 MG TAB 1500 MG PO ×2 (08:24→19:46)
[2018-11-02] MEDS: Magnesium Oxide 400 MG TAB 800 MG PO ×2 (08:24→19:47)
--- NOTE | 2018-11-02 13:04 | PGE_ITS ---
Date of Service Date of service: 11/02/18 Time of Service: 13:05 Assessment and Plan (1) Fever of unknown origin (FUO): Start date: 11/02/18 Start time: 13:06 Current visit: Yes Status: Resolved Resolved afebrile. (2) Adrenal insufficiency: Start date: 11/02/18 Start time: 13:06 Current visit: Yes Status: Acute The likely cause of fever. Prednisone tapered to 30 mg yesterday (3) History of kidney transplant: Start date: 11/02/18 Start time: 13:10 Current visit: Yes Status: Acute Continue anti-rejection medications. (4) Acute on chronic diastolic CHF (congestive heart failure): Start date: 11/02/18 Start time: 13:11 Current visit: Yes Status: Acute Continue diuresis - BP's are tolerating (5) Seizure disorder: Current visit: No Status: Chronic Continue keppra (6) Hypercoagulable state, primary: Start date: 11/02/18 Start time: 13:12 Current visit: No Status: Acute 2.9 today continue dose (7) Neurogenic bladder: Start date: 11/02/18 Start time: 13:11 Current visit: No Status: Acute s/p kidd - continue. UA negative for a UTI. E. faecium in urine is colonization. (8) DVT prophylaxis: Start date: 11/02/18 Start time: 13:11 Current visit: No Status: Acute On therapeutic coumadin (9) Discharge planning issues: Start date: 11/02/18 Start time: 13:13 Current visit: No Status: Acute Full code, attempting to convert to DNR/DNI and possibly hospice via courts Appreciate palliative care's recommendations. Spoke with Dr Mina's office in regards to patient's wishes. Patient states [facility] She will be medically stable for discharge on Saturday assuming she does not respike fevers Subjective Patient reports: no new complaints Interval history since last seen: Sitting up in chair reading tablet. Doing well, awaiting for placement. Denies CP, SOB, N/V/D. Exam Narrative Exam Narrative: General: very pleasant female, sitting in a chair, looks well HEENT: EOMI, MMM Heart: RRR, no m/r/g heard today Lungs: LSCTAB GI: abdomen is soft, tender in epigastrium, nondistended Extremities: LUE AVF with palpable thrill and bruit; trace edema BLE's, no c/c Objective Objective Clinical Data: Abnormal lab results 11/02/18 11/02/18 11/02/18 Range/Units 06:50 06:50 06:50 RBC 3.47 L (4.00-5.20) m/cumm Hgb 9.4 L (12.0-15.5) g/dL Hct 29.8 L (36.0-46.0) % MCHC 31.5 L (32.0-36.0) g/dL Absolute Lymphocytes 1.17 L (1.2-3.4) k/cumm PT 29.1 H (9.3-11.0) sec INR 2.9 H (0.9-1.1) Sodium 135 L (136-145) mmol/L Calcium 8.0 L (8.5-10.1) mg/dL Vital Signs Temperature 36.7 C 11/02/18 11:30 Temperature Source Tympanic 11/02/18 11:30 Pulse 74 11/02/18 11:30 Pulse Rhythm Regular 11/01/18 19:35 Pulse 66 10/30/18 15:05 Respiratory Rate 18 11/02/18 11:30 Respiratory Effort 11/01/18 19:35 Respiratory Depth Normal 11/01/18 19:35 Respiratory Pattern Normal 11/01/18 19:35 Blood Pressure 111/58 L 11/02/18 11:30 Blood Pressure Mean 79 10/30/18 18:30 Blood Pressure Position Sitting 10/28/18 12:26 Pulse Oximetry 97 11/02/18 11:30 Oxygen Delivery Method Room Air 11/02/18 11:30 Oxygen Flow Rate 0 11/02/18 11:30 Pain Level 0 11/02/18 11:30 Comment Temporal artery scan temperature at this time = 36.3 10/29/18 12:00 Intake & Output 11/01/18 11/02/18 11/02/18 23:59 11:59 23:59 Intake Total 720 / 920 120 / 120 Output Total 550 / 1375 1525 / 1925 400 / 1925 Balance 170 / -455 -1405 / -1805 -400 / -1805 Weight 60.3 kg Intake: Oral 720 / 920 120 / 120 Output: Urine 550 / 1375 1525 / 1925 400 / 1925 Other: Urine Color Yellow Yellow Yellow Urine Appearance Clear Clear Clear Stool Size Moderate Large Stool Characteristics Soft Hard Formed Brown Laboratory Results WBC 7.69 k/cumm (4.4-10.8) 11/02/18 06:50 RBC 3.47 m/cumm (4.00-5.20) L 11/02/18 06:50 Hgb 9.4 g/dL (12.0-15.5) L 11/02/18 06:50 Hct 29.8 % (36.0-46.0) L 11/02/18 06:50 MCV 85.9 fL (80-95) 11/02/18 06:50 MCH 27.1 pg (27.0-33.0) 11/02/18 06:50 MCHC 31.5 g/dL (32.0-36.0) L 11/02/18 06:50 RDW 14.4 % (11.7-14.6) 11/02/18 06:50 Plt Count 313 x1000/uL (130-400) 11/02/18 06:50 MPV 9.0 fL (8.0-11.0) 11/02/18 06:50 Immature Gran % 1.3 11/02/18 06:50 Neutrophils % 73.7 11/02/18 06:50 Lymphocytes % 15.2 11/02/18 06:50 Monocytes % 8.1 11/02/18 06:50 Eosinophils % 1.4 11/02/18 06:50 Basophils % 0.3 11/02/18 06:50 Absolute Neutrophils 5.67 k/cumm (1.2-6.7) 11/02/18 06:50 Absolute Lymphocytes 1.17 k/cumm (1.2-3.4) L 11/02/18 06:50 Absolute Monocytes 0.62 k/cumm (0.11-0.7) 11/02/18 06:50 Absolute Eosinophils 0.11 k/cumm (0.0-0.7) 11/02/18 06:50 Absolute Basophils 0.02 k/cumm (0.0-0.2) 11/02/18 06:50 PT 29.1 sec (9.3-11.0) H 11/02/18 06:50 INR 2.9 (0.9-1.1) H 11/02/18 06:50 APTT 37.2 sec (21.0-31.4) H 10/28/18 12:40 Sodium 135 mmol/L (136-145) L 11/02/18 06:50 Potassium 3.9 mmol/L (3.5-5.1) 11/02/18 06:50 Chloride 101 mmol/L (98-107) 11/02/18 06:50 Carbon Dioxide 26.0 mmol/L (21.0-32.0) 11/02/18 06:50 Anion Gap 8.0 mmol/L (3-11) 11/02/18 06:50 BUN 15 mg/dL (7-18) 11/02/18 06:50 Creatinine 0.59 mg/dL (0.55-1.02) 11/02/18 06:50 Estimated GFR/1.73 m2 >= 60.00 (mL/min/1.73m2) 11/02/18 06:50 Glucose 87 mg/dL (70-100) 11/02/18 06:50 Lactate 0.8 mmol/l (0.6-1.4) 10/28/18 12:40 Calcium 8.0 mg/dL (8.5-10.1) L 11/02/18 06:50 Magnesium 1.9 mg/dL (1.8-2.4) 11/02/18 06:50 Iron 44 ug/dL (50-175) L 11/01/18 06:45 TIBC 176 ug/dL (250-450) L 11/01/18 06:45 Transferrin % Sat 25 % (15-50) 11/01/18 06:45 Ferritin 315 ng/mL (8-388) 11/01/18 06:45 Total Bilirubin 0.9 mg/dL (0.2-1.0) 10/28/18 12:40 AST 32 U/L (15-37) 10/28/18 12:40 ALT 32 U/L (12-78) 10/28/18 12:40 Alkaline Phosphatase 57 U/L (46-116) 10/28/18 12:40 Total Protein 6.8 g/dL (6.4-8.2) 10/28/18 12:40 Albumin 2.7 g/dL (3.4-5.0) L 10/28/18 12:40 Vitamin B12 617 pg/mL (193-986) 11/01/18 06:45 Folate 14.2 ng/mL (8.6-20.0) 11/01/18 06:45 Procalcitonin < 0.1 ng/mL 10/28/18 12:40 Urine Color Yellow (Yellow) 10/28/18 13:05 Urine Clarity Clear (Clear) 10/28/18 13:05 Urine pH 8.5 (5-8) H 10/28/18 13:05 Ur Specific [place] 1.015 (1.005-1.025) 10/28/18 13:05 Urine Protein Negative mg/dL (Negative) 10/28/18 13:05 Urine Ketones Negative mg/dL (Negative) 10/28/18 13:05 Urine Blood Trace-intact (Negative) H 10/28/18 13:05 Urine Nitrite Negative (Negative) 10/28/18 13:05 Urine Bilirubin Negative (Negative) 10/28/18 13:05 Urine Urobilinogen 0.2 EU/dL (Up TO 0.2) 10/28/18 13:05 Ur Leukocyte Esterase Negative (Negative) 10/28/18 13:05 Urine RBC 3-5 (0-2) H 10/28/18 13:05 Urine WBC 0-2 HPF (0-5) 10/28/18 13:05 Ur Epithelial Cells Rare HPF (Negative) 10/28/18 13:05 Urine Crystals Negative HPF (Negative) 10/28/18 13:05 Urine Bacteria Rare HPF (Negative) 10/28/18 13:05 Urine Casts Negative LPF (Negative) 10/28/18 13:05 Urine Mucus Negative (Negative) 10/28/18 13:05 Ur Culture Indicated? C&s done as ordered 10/28/18 13:05 Urine Glucose Negative mg/dL (Negative) 10/28/18 13:05 Vancomycin Trough 23.7 ug/mL (10.0-20.0) H* 10/30/18 11:12 Tacrolimus 6.2 ng/ml 10/28/18 12:40
[2018-11-02] MEDS: Lidocaine 5% Patch 1 PATCH TP (17:26)
[2018-11-02] MEDS: Acetaminophen 325 MG TAB 650 MG PO (17:27)
[2018-11-02] MEDS: Warfarin 5 MG TAB PO (17:27)
[2018-11-02] MEDS: Tacrolimus 0.5 MG CAP 1 MG PO (19:47)
[2018-11-02] MEDS: Nystatin POWDER 15 GM JAR TP (19:48)
[2018-11-02] MEDS: traMADol 50 MG TAB PO (21:27)
[2018-11-03] VITALS (11 sets, daily range): BP systolic 94–130; BP diastolic 55–73; PULSE 65–81; RESP 14–18; TEMP 35.9–36.8; O2SAT 95–98
[2018-11-03] MEDS: Acetaminophen 325 MG TAB 650 MG PO ×2 (03:01→08:51)
[2018-11-03 07:30] LABS: Absolute Basophil Count 0.01 k/cumm (0.0-0.2); Absolute Eosinophil Count 0.14 k/cumm (0.0-0.7); Absolute Lymphocyte Count 0.96 k/cumm (1.2-3.4); Absolute Monocyte Count 0.61 k/cumm (0.11-0.7); Absolute Neutrophil Count 5.47 k/cumm (1.2-6.7); Basophils % 0.1; Eosinophils % 1.9; HCT 33.7 % (36.0-46.0); HGB 10.8 g/dL (12.0-15.5); Immature Grans % 1.4; Lymphocytes % 13.2; Mean Corpuscular Hemoglobin 27.2 pg (27.0-33.0); Mean Corpuscular Volume 84.9 fL (80-95); Mean Platelet Volume 8.9 fL (8.0-11.0); Monocytes % 8.4; Platelet Count 308 x1000/uL (130-400); RBC 3.97 m/cumm (4.00-5.20); RBC Distribution Width 14.6 % (11.7-14.6); White Blood Cell Count 7.29 k/cumm (4.4-10.8)
[2018-11-03 07:42] LABS: Anion Gap 6.7 mmol/L (3-11); BUN 18 mg/dL (7-18); CO2 28.3 mmol/L (21.0-32.0); CREATININE 0.69 mg/dL (0.55-1.02); Calcium 8.4 mg/dL (8.5-10.1); Chloride 100 mmol/L (98-107); Glucose 109 mg/dL (70-100); Magnesium 1.8 mg/dL (1.8-2.4); Sodium 135 mmol/L (136-145)
[2018-11-03 07:53] LABS: INR 3.3 (0.9-1.1); Prothrombin Time 33.5 sec (9.3-11.0)
[2018-11-03] MEDS: levETIRAcetam 500 MG TAB 1500 MG PO ×2 (08:49→20:54)
[2018-11-03] MEDS: Nystatin POWDER 15 GM JAR TP ×2 (08:49→20:55)
[2018-11-03] MEDS: predniSONE 10 MG TAB 30 MG PO (08:50)
[2018-11-03] MEDS: Esomeprazole 40 MG CAPCR PO ×2 (08:50→20:54)
[2018-11-03] MEDS: Tacrolimus 0.5 MG CAP 2 MG PO (08:51)
[2018-11-03] MEDS: Furosemide 20 MG TAB 40 MG PO (08:51)
[2018-11-03] MEDS: Magnesium Oxide 400 MG TAB 800 MG PO ×2 (08:52→20:54)
[2018-11-03] MEDS: Citalopram 20 MG TAB PO (08:52)
[2018-11-03 09:44] LABS: Transferrin 122 mg/dL (201-352)
--- NOTE | 2018-11-03 10:18 | OT.INTREAT ---
Date of service: 11/03/18 Time of Service: 09:32 Occupational Therapy Notes Occupational Therapy Inpatient Treatment Note Date: 11/03/18 PRECAUTIONS: Contact, Fall SUBJECTIVE: Pt was sitting in the chair when OT arrived she was agreeable to OT session. OBJECTIVE: PAIN: no c/o pain FUNCTIONAL MOBILITY Sit-stand: CGA Stand-sit: CGA Bed-Chair: SBA, FWW Chair-bed: SBA, FWW BATHING: Sitting in chair with max (A) set up Upper Body: (I) face, (B) UE, abdomen, max (A) back, Mod (A) underarms with min vc Lower Body: Max (A) LE and feet. This is pt's baseline level of function. DRESSING: Sitting in chair Upper Extremity: (I) don tanktop and t-shirt Lower Extremity: Max (A) donning and doffing (B) socks, shoes, underwear and skirt GROOMING: Standing at sink with FWW min vc for body positioning (I) brushing teeth TOILETING: Device: toilet Assist: mod (A) toileting hygiene, pt prefers (A) with this. ASSESSMENT/PLAN: Pt functionally is performing functional mobility with SBA and FWW. She does require vc at times to complete her ADLs but overall is (I) with her upper body. She is max (A) for her LE but states that this is her baseline level of function. OT will continue to progress pt towards goals established at initial evaluation. TREATMENT CODES/TIME: 39380x5, 33 minutes (09:32) IRLANDA Guillen/[facility]
--- NOTE | 2018-11-03 12:14 | PGE_ITS ---
Date of Service Date of service: 11/03/18 Time of Service: 12:14 Assessment and Plan (1) Fever of unknown origin (FUO): Start date: 11/03/18 Start time: 12:16 Current visit: Yes Status: Resolved Resolved. Continue to monitor. (2) Adrenal insufficiency: Start date: 11/03/18 Start time: 12:16 Current visit: Yes Status: Acute The likely cause of fever. Prednisone tapered to 30 mg yesterday taper slowly every 3-4 days until at dose of 10. (3) History of kidney transplant: Start date: 11/03/18 Start time: 12:16 Current visit: Yes Status: Acute Continue anti-rejection medications. (4) Acute on chronic diastolic CHF (congestive heart failure): Start date: 11/03/18 Start time: 12:16 Current visit: Yes Status: Acute Continue diuresis - BP's are tolerating (5) Seizure disorder: Start date: 11/03/18 Start time: 12:17 Current visit: No Status: Chronic Continue keppra (6) Hypercoagulable state, primary: Start date: 11/03/18 Start time: 12:17 Current visit: No Status: Acute hold coumadin today, recheck INR in am (7) Neurogenic bladder: Start date: 11/03/18 Start time: 12:21 Current visit: No Status: Acute s/p kidd - continue. UA negative for a UTI. E. faecium in urine is colonization. (8) DVT prophylaxis: Start date: 11/03/18 Start time: 12:21 Current visit: No Status: Acute On therapeutic coumadin (9) Discharge planning issues: Start date: 11/03/18 Start time: 12:21 Current visit: No Status: Acute Full code, attempting to convert to DNR/DNI and possibly hospice via courts Appreciate palliative care's recommendations. Spoke with Dr Mina's office in regards to patient's wishes. Patient states [facility] Subjective Patient reports: no new complaints Interval history since last seen: Darlene is doing well, would like to go home. She is tired of being in the hospital. A bed will be available [facility] for [facility]. She denies CP, SOB, n/v/d. Exam Narrative Exam Narrative: General: very pleasant female, sitting in a chair, looks well HEENT: EOMI, MMM Heart: RRR, no m/r/g heard today Lungs: LSCTAB GI: abdomen is soft, nontender, nondistended Extremities: LUE AVF with palpable thrill and bruit; trace edema BLE's, no c/c Objective Objective Clinical Data: Abnormal lab results 11/03/18 11/03/18 11/03/18 Range/Units 06:26 06:26 06:26 RBC 3.97 L (4.00-5.20) m/cumm Hgb 10.8 L (12.0-15.5) g/dL Hct 33.7 L (36.0-46.0) % Absolute Lymphocytes 0.96 L (1.2-3.4) k/cumm PT 33.5 H (9.3-11.0) sec INR 3.3 H (0.9-1.1) Sodium 135 L (136-145) mmol/L Glucose 109 H (70-100) mg/dL Calcium 8.4 L (8.5-10.1) mg/dL Vital Signs Temperature 36.2 C L 11/03/18 11:17 Temperature Source Tympanic 11/03/18 11:17 Pulse 68 11/03/18 11:17 Pulse Rhythm Regular 11/03/18 07:40 Pulse 66 10/30/18 15:05 Respiratory Rate 18 11/03/18 11:17 Respiratory Effort 11/03/18 07:40 Respiratory Depth Normal 11/03/18 07:40 Respiratory Pattern Normal 11/03/18 07:40 Blood Pressure 98/55 L 11/03/18 11:17 Blood Pressure Mean 79 10/30/18 18:30 Blood Pressure Position Sitting 10/28/18 12:26 Pulse Oximetry 95 11/03/18 11:17 Oxygen Delivery Method Room Air 11/03/18 11:17 Oxygen Flow Rate 0 11/03/18 11:17 Pain Level 0 11/03/18 07:26 Comment 11/03/18 03:35 Intake & Output 11/02/18 11/03/18 11/03/18 23:59 11:59 23:59 Intake Total 780 / 1140 460 / 460 Output Total 2450 / 3975 1850 / 1850 Balance -1670 / -2835 -1390 / -1390 Weight 60.6 kg Intake: Oral 780 / 1140 460 / 460 Output: Urine 2450 / 3975 1849 Other: Urine Color Yellow Pale Yellow Urine Appearance Clear Clear Comment post lasix administration Stool Size Moderate Small Stool Characteristics Formed Soft Formed Laboratory Results WBC 7.29 k/cumm (4.4-10.8) 11/03/18 06:26 RBC 3.97 m/cumm (4.00-5.20) L 11/03/18 06:26 Hgb 10.8 g/dL (12.0-15.5) L 11/03/18 06:26 Hct 33.7 % (36.0-46.0) L 11/03/18 06:26 MCV 84.9 fL (80-95) 11/03/18 06:26 MCH 27.2 pg (27.0-33.0) 11/03/18 06:26 MCHC 32.0 g/dL (32.0-36.0) 11/03/18 06:26 RDW 14.6 % (11.7-14.6) 11/03/18 06:26 Plt Count 308 x1000/uL (130-400) 11/03/18 06:26 MPV 8.9 fL (8.0-11.0) 11/03/18 06:26 Immature Gran % 1.4 11/03/18 06:26 Neutrophils % 75.0 11/03/18 06:26 Lymphocytes % 13.2 11/03/18 06:26 Monocytes % 8.4 11/03/18 06:26 Eosinophils % 1.9 11/03/18 06:26 Basophils % 0.1 11/03/18 06:26 Absolute Neutrophils 5.47 k/cumm (1.2-6.7) 11/03/18 06:26 Absolute Lymphocytes 0.96 k/cumm (1.2-3.4) L 11/03/18 06:26 Absolute Monocytes 0.61 k/cumm (0.11-0.7) 11/03/18 06:26 Absolute Eosinophils 0.14 k/cumm (0.0-0.7) 11/03/18 06:26 Absolute Basophils 0.01 k/cumm (0.0-0.2) 11/03/18 06:26 PT 33.5 sec (9.3-11.0) H 11/03/18 06:26 INR 3.3 (0.9-1.1) H 11/03/18 06:26 APTT 37.2 sec (21.0-31.4) H 10/28/18 12:40 Sodium 135 mmol/L (136-145) L 11/03/18 06:26 Potassium 4.0 mmol/L (3.5-5.1) 11/03/18 06:26 Chloride 100 mmol/L (98-107) 11/03/18 06:26 Carbon Dioxide 28.3 mmol/L (21.0-32.0) 11/03/18 06:26 Anion Gap 6.7 mmol/L (3-11) 11/03/18 06:26 BUN 18 mg/dL (7-18) 11/03/18 06:26 Creatinine 0.69 mg/dL (0.55-1.02) 11/03/18 06:26 Estimated GFR/1.73 m2 >= 60.00 (mL/min/1.73m2) 11/03/18 06:26 Glucose 109 mg/dL (70-100) H 11/03/18 06:26 Lactate 0.8 mmol/l (0.6-1.4) 10/28/18 12:40 Calcium 8.4 mg/dL (8.5-10.1) L 11/03/18 06:26 Magnesium 1.8 mg/dL (1.8-2.4) 11/03/18 06:26 Iron 44 ug/dL (50-175) L 11/01/18 06:45 TIBC 176 ug/dL (250-450) L 11/01/18 06:45 Transferrin % Sat 25 % (15-50) 11/01/18 06:45 Ferritin 315 ng/mL (8-388) 11/01/18 06:45 Total Bilirubin 0.9 mg/dL (0.2-1.0) 10/28/18 12:40 AST 32 U/L (15-37) 10/28/18 12:40 ALT 32 U/L (12-78) 10/28/18 12:40 Alkaline Phosphatase 57 U/L (46-116) 10/28/18 12:40 Total Protein 6.8 g/dL (6.4-8.2) 10/28/18 12:40 Albumin 2.7 g/dL (3.4-5.0) L 10/28/18 12:40 Vitamin B12 617 pg/mL (193-986) 11/01/18 06:45 Folate 14.2 ng/mL (8.6-20.0) 11/01/18 06:45 Procalcitonin < 0.1 ng/mL 10/28/18 12:40 Urine Color Yellow (Yellow) 10/28/18 13:05 Urine Clarity Clear (Clear) 10/28/18 13:05 Urine pH 8.5 (5-8) H 10/28/18 13:05 Ur Specific [place] 1.015 (1.005-1.025) 10/28/18 13:05 Urine Protein Negative mg/dL (Negative) 10/28/18 13:05 Urine Ketones Negative mg/dL (Negative) 10/28/18 13:05 Urine Blood Trace-intact (Negative) H 10/28/18 13:05 Urine Nitrite Negative (Negative) 10/28/18 13:05 Urine Bilirubin Negative (Negative) 10/28/18 13:05 Urine Urobilinogen 0.2 EU/dL (Up TO 0.2) 10/28/18 13:05 Ur Leukocyte Esterase Negative (Negative) 10/28/18 13:05 Urine RBC 3-5 (0-2) H 10/28/18 13:05 Urine WBC 0-2 HPF (0-5) 10/28/18 13:05 Ur Epithelial Cells Rare HPF (Negative) 10/28/18 13:05 Urine Crystals Negative HPF (Negative) 10/28/18 13:05 Urine Bacteria Rare HPF (Negative) 10/28/18 13:05 Urine Casts Negative LPF (Negative) 10/28/18 13:05 Urine Mucus Negative (Negative) 10/28/18 13:05 Ur Culture Indicated? C&s done as ordered 10/28/18 13:05 Urine Glucose Negative mg/dL (Negative) 10/28/18 13:05 Vancomycin Trough 23.7 ug/mL (10.0-20.0) H* 10/30/18 11:12 Tacrolimus 6.2 ng/ml 10/28/18 12:40
--- NOTE | 2018-11-03 12:45 | PT.INTREAT ---
Date of service: 11/03/18 Time of Service: 12:46 PT Notes Inpatient Physical Therapy Treatment Note [facility] Date: 11/03/18 SUBJECTIVE: Darlene is agreeable to participating in PT. She reports that she is not feeling well this afternoon. OBJECTIVE: PAIN: Patient c/o B knee pain with [id number] transfer BED MOBILITY/TRANSFERS Sit-supine: SBA with HOB flat Sit-stand: CGA Stand-sit: CGA GAIT Assistive Device: FWW Weight bearing: Full Assist: CGA Distance: 100' in a.m.; 120' in p.m. Deviation: Slow pace Static standing x3 minutes with FWW support and SBA in a.m.; static standing x2 minutes with FWW support and SBA in p.m. TOILETING: Patient toileted with assist ASSESSMENT: Patient tolerated session well with minimal complaint of B knee pain with [id number] transfer. She appears limited due to increased fatigue and not feeling well today. PLAN: Continue with PT's POC TREATMENT CODE/TIME: Session 1: 25 minutes; 98117 x2 Session 2: 15 minutes; [id number]
--- NOTE | 2018-11-03 12:49 | PTTR_ITS ---
Date of service: 11/03/18 Time of Service: 12:46 PT Notes Inpatient Physical Therapy Treatment Note [facility] Date: 11/03/18 SUBJECTIVE: Darlene is agreeable to participating in PT. She reports that she is not feeling well this afternoon. OBJECTIVE: PAIN: Patient c/o B knee pain with [id number] transfer BED MOBILITY/TRANSFERS Sit-supine: SBA with HOB flat Sit-stand: CGA Stand-sit: CGA GAIT Assistive Device: FWW Weight bearing: Full Assist: CGA Distance: 100' in a.m.; 120' in p.m. Deviation: Slow pace Static standing x3 minutes with FWW support and SBA in a.m.; static standing x2 minutes with FWW support and SBA in p.m. TOILETING: Patient toileted with assist ASSESSMENT: Patient tolerated session well with minimal complaint of B knee pain with [id number] transfer. She appears limited due to increased fatigue and not feeling well today. PLAN: Continue with PT's POC TREATMENT CODE/TIME: Session 1: 25 minutes; 80666 x2 Session 2: 15 minutes; [id number]
--- NOTE | 2018-11-03 13:49 | PDOC.CMPRO ---
- If Service Date Differs Date of service: 11/03/18 Time of Service: 13:49 Care Management Progress Note S/O:Darlene remains inpatient she has [facility] bed offer [facility]. She did have a dizzy spell today with a low blood pressure provider is aware. Darlene was tearful when CM into visit her sister was also tearful. Darlene states she does not feel well and continues to feel dizzy at rest. CM reviewed with her primary nurse who will follow up. A:Darlene is a 53 year old female admitted with fever status post discharge from [facility] recent UTI, and CHF and a history of kidney transplant. P:Darlene would like to be discharged to [facility] when medically ready. She will transport via wheelchair van and will continue her follow up with Palliative care.
--- NOTE | 2018-11-03 13:52 | CMPROGNOTE_ITS ---
- If Service Date Differs Date of service: 11/03/18 Time of Service: 13:49 Care Management Progress Note S/O:Darlene remains inpatient she has a bed offer [facility]. She did have a dizzy spell today with a low blood pressure provider is aware. Darlene was tearful when CM into visit her sister was also tearful. Darlene states she does not feel well and continues to feel dizzy at rest. CM reviewed with her primary nurse who will follow up. A:Darlene is a 53 year old female admitted with fever status post discharge from [facility] recent UTI, and CHF and a history of kidney transplant. P:Darlene would like to be discharged to [facility] when medically ready. She will transport via wheelchair van and will continue her follow up with Palliative care.
[2018-11-03] MEDS: Lidocaine 5% Patch 1 PATCH TP (18:02)
[2018-11-03] MEDS: traMADol 50 MG TAB PO (20:53)
[2018-11-03] MEDS: Tacrolimus 0.5 MG CAP 1 MG PO (20:54)
[2018-11-04 04:35] VITALS: BP 127/73; PULSE 69; RESP 13; TEMP 35.1; O2SAT 99
[2018-11-04] MEDS: traMADol 50 MG TAB PO (06:06)
[2018-11-04] MEDS: Esomeprazole 40 MG CAPCR PO (07:25)
[2018-11-04 07:45] VITALS: BP 118/60; PULSE 76; RESP 18; TEMP 36.7; O2SAT 98
[2018-11-04 07:48] LABS: Abs Immature Grans 0.15 k/cumm (0.0-0.09); Absolute Basophil Count 0.02 k/cumm (0.0-0.2); Absolute Eosinophil Count 0.21 k/cumm (0.0-0.7); Absolute Lymphocyte Count 1.11 k/cumm (1.2-3.4); Absolute Monocyte Count 0.61 k/cumm (0.11-0.7); Absolute Neutrophil Count 6.01 k/cumm (1.2-6.7); Basophils % 0.2; Eosinophils % 2.6; HCT 36.8 % (36.0-46.0); HGB 11.8 g/dL (12.0-15.5); Immature Grans % 1.8; Lymphocytes % 13.7; Mean Corp. HGB Concentration 32.1 g/dL (32.0-36.0); Mean Corpuscular Hemoglobin 27.1 pg (27.0-33.0); Mean Corpuscular Volume 84.6 fL (80-95); Mean Platelet Volume 8.9 fL (8.0-11.0); Monocytes % 7.5; Neutrophils % 74.2; Platelet Count 312 x1000/uL (130-400); RBC 4.35 m/cumm (4.00-5.20); RBC Distribution Width 14.9 % (11.7-14.6); White Blood Cell Count 8.11 k/cumm (4.4-10.8)
[2018-11-04 08:02] LABS: INR 3.4 (0.9-1.1); Prothrombin Time 34.6 sec (9.3-11.0)
[2018-11-04 08:23] LABS: Anion Gap 8.2 mmol/L (3-11); BUN 19 mg/dL (7-18); CO2 28.8 mmol/L (21.0-32.0); CREATININE 0.62 mg/dL (0.55-1.02); Calcium 8.5 mg/dL (8.5-10.1); Chloride 96 mmol/L (98-107); Glucose 101 mg/dL (70-100); Magnesium 1.6 mg/dL (1.8-2.4); Potassium 3.8 mmol/L (3.5-5.1); Sodium 133 mmol/L (136-145)
[2018-11-04] MEDS: levETIRAcetam 500 MG TAB 1500 MG PO (09:16)
[2018-11-04] MEDS: Tacrolimus 0.5 MG CAP 2 MG PO (09:16)
[2018-11-04] MEDS: predniSONE 5 MG TAB PO (09:18)
[2018-11-04] MEDS: Magnesium Oxide 400 MG TAB 800 MG PO ×2 (09:18→09:40)
[2018-11-04] MEDS: Citalopram 20 MG TAB PO (09:18)
[2018-11-04] MEDS: predniSONE 10 MG TAB 30 MG PO (09:22)
[2018-11-04 09:25] VITALS: O2SAT 98
[2018-11-04] MEDS: Potassium Chloride 20 MEQ TABCR PO (09:40)
--- NOTE | 2018-11-04 10:02 | OT.INDS ---
Date of service: 11/04/18 Time of Service: 10:02 Occupational Therapy Notes Occupational Therapy Inpatient Discharge Summary Date: 11/04/18 Dates of Service: 10/29/18-11/04/18 Referring Doctor: Renée Dumont MD OT Orders: Eval and Treat Precautions: Fall, Decreased safety awareness, Standard PATIENT PROFILE/ADMITTING DIAGNOSIS: Pt is a 53 year old female admitted through the ER for acquired immunocompromised state, sepsis and hypotension and is s/p renal transplant x3 and has a neurogenic bladder. Past Medical History: Chronic anticoagulation Chronic kidney disease Convulsions Hyperparathyroidism Neurogenic bladder Osteoporosis Peripheral neuropathy Protein S deficiency TBI (traumatic brain injury) Surgical History Colonoscopy - MAC (02/11/15) Fistula creation Renal Transplant Social History/Home Situation: Pt states that she lives in a custodial setting in [place], [place]. She reports that she is functionally (I) with all ADLs/IADLs and later states that she requires max (A) with putting on (B) socks, pulling up her pants, and helping her whenever she needs it for food. She reports that she is unable to cut her own food. She uses a shower chair in the shower and states that she uses a FWW for functional mobility. Equipment owned/DME: FWW, shower chair SUBJECTIVE: NT OBJECTIVE: ROM: RUE Shoulder flexion limited to 130*, elbow WNL, hand and digits WNL L UE Shoulder flexion WNL, elbow WNL, hand and digits WNL STRENGTH: RUE Shoulder flexion 3-/5, bicep 3-/5, tricep 3/5, single stayer operator is weak LUE Shoulder flexion 3-/5, bicep 3-/5, tricep 3-/5, single stayer operator is weak FUNCTIONAL MOBILITY/ADLS: Sit to stand CGA,FWW Stand to sit CGA, FWW chair to sink SBA, FWW sink to chair SBA, FWW BATHING Sitting in chair with max (A) set up, (I) face, (B) UE and abdomen max (A) back,(B) LE DRESSING Pt is max (A) don and doff (B) LE socks, mod (A) don and doffing hospital gown Toileting on toilet mod (A) EATING (I) sitting BALANCE: Static sitting Good Dynamic Sitting Good Static standing Good Dynamic standing Good ASSESSMENT: Patient is a 53-year-old female referred to occupational therapy services with diagnosis of acquired immunocompromised state, sepsis, and hypotension. Pt was seen for 2 skilled OT services. She is demonstrating close to her baseline level of function. She is max (A) LE at baseline. She requires vc to perform ADLs but is able to perform them standing at sink. She functionally was able to perform toileting hygiene with mod (A), pt prefers max (A) if optional. Plan is for pt to discharge to SNF today. OT will plan to discharge pt at this time. GOALS 1. Transfers- FWW (S) - not met 2. Dressing Sitting in chair mod (A) don and doffing (B) socks and pants, (I) donning and doffing UE- not met pt is max (A) LE dressing at baseline 3. Bathing Sitting in chair mod (A) LE, (I) UE -not met pt is max (A) LE at baseline per sister report. 4. Toileting on toilet mod (A) -met 5. Eating sitting in chair (I) -met 6. Grooming sitting in chair (I) teeth and hair-met PLAN OF CARE/TREATMENT PLAN: Discharge pt from skilled OT services. DISCHARGE RECOMMENDATIONS Pt to be discharged to SNF today. TREATMENT TIME/MINUTES/CODES N/A Nichole Garrett OTR/L [facility]
--- NOTE | 2018-11-04 10:07 | OTDS_ITS ---
Date of service: 11/04/18 Time of Service: 10:02 Occupational Therapy Notes Occupational Therapy Inpatient Discharge Summary Date: 11/04/18 Dates of Service: 10/29/18-11/04/18 Referring Doctor: Renée Dumont MD OT Orders: Eval and Treat Precautions: Fall, Decreased safety awareness, Standard PATIENT PROFILE/ADMITTING DIAGNOSIS: Pt is a 53 year old female admitted through the ER for acquired immunocompromised state, sepsis and hypotension and is s/p renal transplant x3 and has a neurogenic bladder. Past Medical History: Chronic anticoagulation Chronic kidney disease Convulsions Hyperparathyroidism Neurogenic bladder Osteoporosis Peripheral neuropathy Protein S deficiency TBI (traumatic brain injury) Surgical History Colonoscopy - MAC (02/11/15) Fistula creation Renal Transplant Social History/Home Situation: Pt states that she lives in a alf setting in [place], [place]. She reports that she is functionally (I) with all ADLs/IADLs and later states that she requires max (A) with putting on (B) socks, pulling up her pants, and helping her whenever she needs it for food. She reports that she is unable to cut her own food. She uses a shower chair in the shower and states that she uses a FWW for functional mobility. Equipment owned/DME: FWW, shower chair SUBJECTIVE: NT OBJECTIVE: ROM: RUE Shoulder flexion limited to 130*, elbow WNL, hand and digits WNL L UE Shoulder flexion WNL, elbow WNL, hand and digits WNL STRENGTH: RUE Shoulder flexion 3-/5, bicep 3-/5, tricep 3/5, astronomy department chair is weak LUE Shoulder flexion 3-/5, bicep 3-/5, tricep 3-/5, astronomy department chair is weak FUNCTIONAL MOBILITY/ADLS: Sit to stand CGA,FWW Stand to sit CGA, FWW chair to sink SBA, FWW sink to chair SBA, FWW BATHING Sitting in chair with max (A) set up, (I) face, (B) UE and abdomen max (A) back,(B) LE DRESSING Pt is max (A) don and doff (B) LE socks, mod (A) don and doffing hospital gown Toileting on toilet mod (A) EATING (I) sitting BALANCE: Static sitting Good Dynamic Sitting Good Static standing Good Dynamic standing Good ASSESSMENT: Patient is a 53-year-old female referred to occupational therapy services with diagnosis of acquired immunocompromised state, sepsis, and hypotension. Pt was seen for 2 skilled OT services. She is demonstrating close to her baseline level of function. She is max (A) LE at baseline. She requires vc to perform ADLs but is able to perform them standing at sink. She functionally was able to perform toileting hygiene with mod (A), pt prefers max (A) if optional. Plan is for pt to discharge to SNF today. OT will plan to discharge pt at this time. GOALS 1. Transfers- FWW (S) - not met 2. Dressing Sitting in chair mod (A) don and doffing (B) socks and pants, (I) donning and doffing UE- not met pt is max (A) LE dressing at baseline 3. Bathing Sitting in chair mod (A) LE, (I) UE -not met pt is max (A) LE at baseline per sister report. 4. Toileting on toilet mod (A) -met 5. Eating sitting in chair (I) -met 6. Grooming sitting in chair (I) teeth and hair-met PLAN OF CARE/TREATMENT PLAN: Discharge pt from skilled OT services. DISCHARGE RECOMMENDATIONS Pt to be discharged to SNF today. TREATMENT TIME/MINUTES/CODES N/A Nichole Garrett OTR/L [facility]
--- NOTE | 2018-11-04 10:29 | PDOC.CMDIS ---
LACE Index Scoring Tool - Questions: Length of Stay (in days): 7 - 13 Acuity (Admit via E.D.?): Yes Comorbidities: Liver or Renal Disease E.D. Visits: 3 - Answers: Total Score: 16 Risk of Readmission: High Risk Care Management Discharge Reason for Hospitalization: Fever Discharge Plan: Darlene will discharge to [facility] when medically ready, the facility will manage her further service and equipment needs. She will transport via the facility's wheelchair van. Palliative care will continue to follow Darlene as she plans to return to her home provider after a short rehabilitative stay. Patient/Family Education Needs: Review discharge instructions, discuss Ask Me Three. Services [facility] Discharge[facility]
--- NOTE | 2018-11-04 11:02 | CMDISCH_ITS ---
LACE Index Scoring Tool - Questions: Length of Stay (in days): 7 - 13 Acuity (Admit via E.D.?): Yes Comorbidities: Liver or Renal Disease E.D. Visits: 3 - Answers: Total Score: 16 Risk of Readmission: High Risk Care Management Discharge Reason for Hospitalization: Fever Discharge Plan: Darlene will discharge to [facility] when medically ready, the facility will manage her further service and equipment needs. She will transport via the facility's wheelchair van. Palliative care will continue to follow Darlene as she plans to return to her home provider after a short rehabilitative stay. Patient/Family Education Needs: Review discharge instructions, discuss Ask Me Three. Services Needed at Discharge: [facility]
[2018-11-04] MEDS: Nystatin POWDER 15 GM JAR TP (11:07)
[2018-11-04] MEDS: Acetaminophen 325 MG TAB 650 MG PO (11:28)
--- NOTE | 2018-11-04 12:30 | PT.INTREAT ---
Date of service: 11/04/18 Time of Service: 12:30 PT Notes Inpatient Physical Therapy Treatment Note [facility] Date: 11/04/18 SUBJECTIVE: Darlene states that she is feeling better today, and she feels that she is ready to transition to [facility] this afternoon. OBJECTIVE: PAIN: Patient c/o B knee pain with stand<>sit transfer BED MOBILITY/TRANSFERS Sit-stand: CGA Stand-sit: CGA GAIT Assistive Device: FWW Weight bearing: Full Assist: CGA Distance: 60' Deviation: Slow pace ASSESSMENT: Patient tolerated session well with complaint of B knee pain with stand<>sit transfer. She would benefit from continued gait and transfer training as well as strengthening for improved mobility and improved activity tolerance. PLAN: As per primary PT TREATMENT CODE/TIME: 10 minutes; 15878
--- NOTE | 2018-11-04 13:03 | DSE_ITS ---
Date of service: 11/04/18 Time of Service: 13:04 DS: Diagnosis Discharge Diagnosis (1) Fever of unknown origin (FUO): Status: Resolved (2) Adrenal insufficiency: Status: Acute (3) History of kidney transplant: Status: Acute (4) Acute on chronic diastolic CHF (congestive heart failure): Status: Acute (5) Seizure disorder: Status: Chronic (6) Hypercoagulable state, primary: Status: Acute (7) Neurogenic bladder: Status: Acute Discharge Plan Disposition Patient Disposition: SNF (LEVEL 1) [facility] Condition: Improving Discharge Details Reason For Visit: FEVER Admit Date/Time: 10/28/18 18:35 Admit Provider: Riley Christopher Attending Provider: Riley Christopher Primary Care Provider: Nader Dobson Hospital Course Hospital Course: Darlene Farah is a very pleasant 53 year old female with a past medical history significant for kidney transplant (this is her 3rd) on triple immunosuppressive therapy, neurogenic bladder (previously did intermittent catheterizations at home), prior episode of small bowel obstruction, hypercoagulable state on coumadin, hypertension, seizure disorder and VRE colonization, who was recently hospitalized here at [facility] from 10/19/2018 2 10/23/2018 for urinary tract infection and CHF. At that time, she was given stress dose steroids and was tapered back to her usual dose, however, she presented back to the hospital on 10/28/2018 with fever with no clear cause. Her work-up was essentially negative, she had a chest x-ray which did not show infiltrates, she had no leukocytosis, her urinalysis did not show evidence of infection. However, she became hypotensive in the emergency department. There was concern for organ rejection. The emergency department attending contacted [facility] and made plans to transfer her, however, she adamantly refused transfer to [facility]. She requested to stay here at [facility] and to meet with palliative care. She was admitted to the ICU. She met with palliative to discuss goals of care. She was initially started on broad spectrum antibiotics. Her blood cultures were negative. It was determined that her fever was from adrenal insufficiency. She was placed on stress dose steroids and her fevers resolved. Her Antibiotics were discontinued sequentially. She had no fever recurrence. She was very clear in her wishes that she did not want aggressive treatment. She wishes to keep a kidd catheter in place and accept the risk this may have on her renal transplant due to pain with straight caths. She is more interested in comfort and quality of life. She requested that Dr. Dumont speak with her transplant specialist, Dr. Mnia and relay to him what her wishes are. Dr. Dumont was able to give him the message. Her sister and Guardian is working on changing her code status to DNR/DNI, this needs to go through the court system. On the day prior to her discharge, she had a symptomatic hypotensive episode after receiving her Lasix dose. Her Lasix was increased to 40 mg twice daily during this hospitalization. The lasix was placed on hold. Her lasix is resumed at a lower dose. Also of note, her INR is supratherapeutic at the time of discharge. Her coumadin is on hold. She will have a repeat INR tomorrow. She worked with PT. She is discharged today to [facility]. Palliative care will continue to follow her. She will return to the assisted when she is discharged from Rehab. Home Meds and New Rx's Prescriptions: New terbinafine HCl 1 % Cream topical BID Qty: 0 RF: 0 nystatin 100,000 unit/gram Powder 1 unit topical BID Qty: 1 RF: 0 tacrolimus 0.5 mg Capsule 2 mg PO QAM Qty: 0 RF: 0 tacrolimus 0.5 mg Capsule 1 mg PO QPM Qty: 0 RF: 0 prednisone 10 mg tablet 10 mg PO DIRECTED Qty: 1 RF: 0 Continued acetaminophen [Tylenol] 325 MG tablet 650 mg PO PRN RF: 0 alendronate 70 MG tablet 70 mg PO DIRECTED RF: 0 levetiracetam [Keppra] 750 MG tablet 1,500 mg PO BID RF: 0 docusate sodium 100 mg Capsule 100 mg PO DAILY PRN (Reason: Constipation) RF: 0 polyethylene glycol 3350 [Miralax] 17 gram/dose Powder 17 g PO DAILY PRNRF: 0 cetirizine 10 mg Tablet 10 mg PO DAILY PRNRF: 0 mycophenolate mofetil 250 mg Capsule 250 mg PO BID RF: 0 prednisone 5 mg Tablet 5 mg PO Q OTHER DAY RF: 0 hydrocortisone 1 % Cream 1 applic TOPICAL BID-QID PRNRF: 0 esomeprazole magnesium [Nexium] 40 mg Capsule,Delayed Release(Dr/Ec) 40 mg PO DAILY RF: 0 guaifenesin [Tussin] 100 mg/5 mL Liquid 200 mg PO Q4H PRNRF: 0 citalopram 20 mg Tablet 20 mg PO DAILY RF: 0 warfarin 5 mg Tablet 5 mg PO DAILY RF: 0 tramadol 50 mg Tablet 50 mg PO HS Qty: 0 RF: 0 lidocaine [Lidoderm] 5 % Adhesive Patch,Medicated 1 patch topical DAILY@1800 Qty: 14 RF: 0 magnesium oxide 400 mg Capsule 400 mg PO TID RF: 0 d-mannose Powder 2,000 pwd PO DAILY RF: 0 Central-Maria L Tablet 1 tab PO DAILY RF: 0 tramadol 50 mg Tablet 25 - 50 mg PO Q8H PRN PRNQty: 12 RF: 0 Changed furosemide 20 mg Tablet 20 mg PO BID Qty: 0 RF: 0 Discontinued tacrolimus [Prograf] 1 mg Capsule 1 - 2 mg PO Q12H RF: 0 cefpodoxime 200 mg Tablet 200 mg PO BID Qty: 20 RF: 0 Discharge Instructions Instructions: Fever in Adults (GEN) Activity:: Activity as Tolerated Equipment/Supplies:: No Equipment Needed Diet:: As Tolerated Discharge Orders Discharge Orders: Discharge Order (Routine); Ordered 11/04/18 Ordered By: Sheila Johnson Other Ambulatory Orders: Prothrombin Time (Routine) Timeframe: 1 Day Location: Determined by Patient Ordered By: Sheila Johnson Exam Narrative Exam Narrative: General: Very pleasant middle-aged female, A&Ox3. Sitting up in the chair. Neurological: A&Ox3, no obvious focal deficits Psychiatric: appears calm, answers questions appropriately, speech is clear. Skin: intact HEENT: Atraumatic, normocephalic, EOMI, moist mucous membranes. Neck: supple, no JVD Cardiovascular: regular rate and rhythm, no murmur appreciated. Lungs: respirations even and unlabored, lungs clear bilaterally, no rales or wheezing. Speaks in complete sentences without shortness of breath. : kidd draining clear yellow urine. Gastrointestinal: + bowel sounds, nontender on palpation of left abdomen, soft, nondistended. Extremities: LUE with AV fistula, BLE with trace nonpitting edema, no clubbing/cyanosis, pedal pulses palpable bilaterally. DS: Data Vitals/I&O Vitals and I&O: Vital Signs Temperature 36.7 C 11/04/18 07:45 Temperature Source Tympanic 11/04/18 07:45 Pulse 76 11/04/18 07:45 Pulse Rhythm Regular 11/04/18 07:20 Pulse 66 10/30/18 15:05 Respiratory Rate 18 11/04/18 07:45 Respiratory Effort Non-Labored 11/04/18 07:20 Respiratory Depth Normal 11/04/18 07:20 Respiratory Pattern Normal 11/04/18 07:20 Blood Pressure 118/60 11/04/18 07:45 Blood Pressure Mean 79 10/30/18 18:30 Blood Pressure Position Sitting 10/28/18 12:26 Pulse Oximetry 98 11/04/18 09:25 Oxygen Delivery Method Room Air 11/04/18 09:25 Oxygen Flow Rate 0 11/04/18 09:25 Pain Level 0 11/04/18 12:28 Comment 11/03/18 15:49 Intake & Output 11/03/18 11/04/18 11/04/18 23:59 11:59 23:59 Intake Total 720 / 1180 560 / 800 240 / 800 Output Total 1675 / 3525 700 / 700 Balance -955 / -2345 -140 / 100 240 / 100 Weight 60.2 kg Intake: Oral 720 / 1180 560 / 800 240 / 800 Output: Urine 1675 / 3525 700 / 700 Other: Urine Color Yellow Pale Yellow Urine Appearance Clear Clear Cloudy Comment wrong PT Stool Occult Blood Negative Stool Size Small Moderate Stool Characteristics Formed Soft Formed Brown Completed studies during hospitalization [Text1]: 10/28/18: AP AND LATERAL CHEST: Comparison is made with 10/19/18. The heart is again noted to be grossly enlarged. Sternal wires and left axillary stent are again noted. There are underlying interstitial changes which appear chronic. The previous exam shows some evidence of CHF. This appears less prominent when compared with the previous exam. No definite focal infiltrate is seen. IMPRESSION: Cardiomegaly and question of mild pulmonary edema. There has been some improvement when compared with the previous exam. No focal infiltrates are seen. Labs on day of discharge: Labs from last 24 hours 11/04/18 11/04/18 11/04/18 07:13 07:13 07:13 WBC 8.11 RBC 4.35 Hgb 11.8 L Hct 36.8 MCV 84.6 MCH 27.1 MCHC 32.1 RDW 14.9 H Plt Count 312 MPV 8.9 Immature Gran % 1.8 Neutrophils % 74.2 Lymphocytes % 13.7 Monocytes % 7.5 Eosinophils % 2.6 Basophils % 0.2 Absolute Neutrophils 6.01 Absolute Lymphocytes 1.11 L Absolute Monocytes 0.61 Absolute Eosinophils 0.21 Absolute Basophils 0.02 PT 34.6 H INR 3.4 H Sodium 133 L Potassium 3.8 Chloride 96 L Carbon Dioxide 28.8 Anion Gap 8.2 BUN 19 H Creatinine 0.62 Estimated GFR/1.73 m2 >= 60.00 Glucose 101 H Calcium 8.5 Magnesium 1.6 L PFSH Medical History Chronic anticoagulation Chronic kidney disease Convulsions Hyperparathyroidism Neurogenic bladder Osteoporosis Peripheral neuropathy Protein S deficiency TBI (traumatic brain injury) Surgical History Colonoscopy - MAC (02/11/15) Fistula creation Renal Transplant Social History Smoking/Tobacco Use Status: Never Alcohol Intake: never Drug use: Never Substance use type: does not use Do you feel safe at home: Yes Do you feel safe in your relationship?: Yes Additional Social history: Lives in assisted in [place]. Has [facility] care there as well.
--- NOTE | 2018-11-04 13:23 | INDS_ITS ---
Date of service: 11/04/18 PT Notes Inpatient Physical Therapy Discharge Summary Dates: 11/04/2018 Dates of Service: 10/29/2018 through 11/04/2018 This is a clinical summary of care provided on the duration of dates listed above. No charge was made in the completion of this documentation. Referring Doctor: Renée Dumont MD PT Orders: PT CONSULT: Eval/treat Precautions: Fall. Standard. Seizure-prone. Activity as tolerated. Patient Profile/Admitting Diagnosis: Patient is a 53-year-old female with past medical history significant for status post renal transplant x 3, on immunosuppressives, and with neurogenic bladder who presented to the ED on 10/19/2018 with chief complaints of fever, malaise, and mild cough. Patient was diagnosed with fever of unknown origin, abdominal pain, new onset congestive heart failure, neuroigenic bladder, and hypercoagulable state. Referral was made for functional mobility training, progressive strengthening, and balance training. PMHX: Medical History Chronic anticoagulation Chronic kidney disease Convulsions Hyperparathyroidism Neurogenic bladder Osteoporosis Peripheral neuropathy Protein S deficiency TBI (traumatic brain injury) Surgical History Colonoscopy - MAC (02/11/15) Fistula creation Renal Transplant Social History/Home Situation: Patient lives with a caregiver in a fci with a ramp to enter in [place], [place]. She is independent with all mobility ADLs using a 4 wheeled walker. She is able to manage bathing and dressing on her own but has a caregiver who takes care of medications, meals, laundry, grocery shopping, and medical transportation. Current Functional Limitations: Need for assistance in all transfer and ambulation task performance using FWW Equipment Owned/DME: FWW Subjective: NT Objective: General Observation: NT Mental Status: NT Pain: NT ROM: Right Upper Extremity: Shoulder Flexion WFL. Shoulder abduction WFL. Elbow flexion WFL. Wrist flexion WFL. Functional opening and closing of hand WFL. Left Upper Extremity: Shoulder Flexion WFL. Shoulder abduction WFL. Elbow flexion WFL. Wrist flexion WFL. Functional opening and closing of hand WFL. Right Lower Extremity: Hip flexion WFL. Hip abduction WFL. Knee flexion WFL. Ankle dorsiflexion 0-5. Ankle plantarflexion WFL. Left Lower Extremity: Hip flexion WFL. Hip abduction WFL. Knee flexion WFL. Ankle dorsiflexion 0-5. Ankle plantarflexion WFL. Strength: Right Upper Extremity: Shoulder flexors 4/5. Shoulder abductors 4/5. Elbow flexors 4/5. Elbow extensors 4/5. Underground Roof Bolter strong. Left Upper Extremity: Shoulder flexors 4/5. Shoulder abductors 4/5. Elbow flexors 4/5. Elbow extensors 4/5. Underground Roof Bolter strong. Right Lower Extremity: Hip flexors 3+/5. Hip abductors 4-/5. Knee flexors 4-/5. Knee extensors 3+/5. Ankle dorsiflexors 3-/5. Ankle plantarflexors 3-/5. Left Lower Extremity: Hip flexors 3+/5. Hip abductors 4-/5. Knee flexors 4-/5. Knee extensors 3+/5. Ankle dorsiflexors 3-/5. Ankle plantarflexors 3-/5. Sensation: Intact as to pain and pressure on bilateral lower extremities. Bed Mobility/Transfers: Rolling minimal assist Supine to sit minimal assist to bilateral LE due to pain complaints Sit to supine minimal assist to bilateral LE due to pain complaints Sit to stand CGA with bilateral UEs support and using FWW Stand to sit CGA with bilateral UEs support and using FWW Bed to chair CGA with bilateral UEs support and using FWW Chair to bed CGA with bilateral UEs support and using FWW Gait: Patient was able to tolerate level surface ambulation of 60 feet with CGA provided using FWW with FWB. Bilateral feet eversion with general vera obs erved. Thoracic scoliosis noted. increased trunk flexion seen during gait activity. Decreased gait velocity with decreased bilateral knee flexion. Balance: Static Sitting: Good Dynamic Sitting:Good Static Standing: Fair Dynamic Standing: Fair Assessment: 53-year-old female who is status post renal transplant x3 on immunosuppressives and with neurogenic bladder now with fever of unknown origin, abdominal pain, and new onset congestive heart failure. Patient continues to present with clinical signs and symptoms consistent with current/admitting diagnoses that have resulted to mobility limitations, gait instability, generalized weakness, and impairment of motor control as demonstrated by the following impairment level findings: 1. Decreased strength to B LE major muscle groups 2. Impaired sitting/standing balance 3. Impaired activity tolerance 4. Limitation of joint range of motion in bilateral ankles Impairments are contributing to the following functional limitations: 1. Dependent bed mobility skills 2. Increased dependence with transfers 3. Inability to safely ambulate without assistive device and physical assistance 4. Increase completion time for mobility ADL performance 5. Increased fall risk 6. Inability to negotiate steps alone safely Goals: Goals X1 week 1. Supine-Sit independent NOT MET 2. Sit-Supine independent NOT MET 3. Sit-Stand independent NOT MET 4. Stand-Sit independent NOT MET 5. Bed-Chair independent NOT MET 6. Chair-Bed independent NOT MET 7. Independent gait on level surface with use of least restrictive device for at least 100 feet without report of pain nor dyspnea NOT MET 8. Independent with home exercise program NOT MET 9. Good static and dynamic standing balance/tolerance NOT MET DISCHARGE RECOMMENDATIONS: Patient will benefit from assisted facility placement in order to progress mobility level, strength, and balance in preparation for a safe discharge to home. TREATMENT CODE/TIME: NC. Thank you very much for this referral. Scarlet Jade PT, DPT, CLT [facility]
== END 2018-11-04 14:15 | disposition skilled nursing facility (03) | DRG 864 ==
LOC: ER 18:39 → ICU 20:30 → MS 11-04 13:07 → ICU 11-05 13:19
PROVIDERS: Internal Medicine; Admitting Provider General Practice; Emergency Provider Student in an Organized Health Care Education/Training Program; PCP Internal Medicine; Visit Provider Internal Medicine
DX: R50.9 Fever, unspecified (principal); I50.33 Acute on chronic diastolic (congestive) heart failure; E27.40 Unspecified adrenocortical insufficiency; Z94.0 Kidney transplant status; D68.59 Other primary thrombophilia; I95.9 Hypotension, unspecified; G40.909 Epilepsy, unspecified, not intractable, without status epilepticus; N31.9 Neuromuscular dysfunction of bladder, unspecified; L89.152 Pressure ulcer of sacral region, stage 2; Z87.440 Personal history of urinary (tract) infections; Z87.820 Personal history of traumatic brain injury; Z22.39 Carrier of other specified bacterial diseases; R79.1 Abnormal coagulation profile; T45.515A Adverse effect of anticoagulants, initial encounter; Z79.01 Long term (current) use of anticoagulants
CPT/HCPCS: 36415; 36569; 80048; 80053; 84145; 87040; 87077; 87449; 96361; 96365; 96367; 97110; 97162; 97530; 97535; 99222; 99232; 99233; 99239; 99255; 99291; 71046; 80197; 80202; 81003; 81015; 82607; 82728; 82746; 83540; 83550; 83605; 83735; 84466; 85025; 85610; 85730; 87086; 87186; J1720; J1941; J1956; J3490; J7512; J7517

== ENCOUNTER → 2018-11-10 14:36 | Outpatient (BNVA) | payer MEDICARE, MEDICAID, SELFPAY | PROVIDERS: PCP Internal Medicine; Visit Provider Urology | DX: N31.9 Neuromuscular dysfunction of bladder, unspecified (principal); Z94.0 Kidney transplant status | CPT/HCPCS: 51702; 99202; 99213 ==

== ENCOUNTER 2019-01-05 21:46 | Outpatient (REF) | payer MEDICARE, MEDICAID, SELFPAY ==
[2019-01-05 21:34] LABS: INR 1.1 (0.9-1.1); Prothrombin Time 10.7 sec (9.3-11.0)
== END 2019-01-05 22:06 ==
LOC: LBN 21:46
PROVIDERS: PCP Internal Medicine; Visit Provider Internal Medicine
DX: N18.9 Chronic kidney disease, unspecified (principal); Z51.81 Encounter for therapeutic drug level monitoring; I25.2 Old myocardial infarction; Z79.01 Long term (current) use of anticoagulants
CPT/HCPCS: 85610

== ENCOUNTER 2019-01-06 13:05 | Emergency (ER) | payer MEDICARE, MEDICAID, SELFPAY ==
[2019-01-06 13:13] VITALS: BP 105/59; PULSE 95; RESP 19; TEMP 36.6; O2SAT 93
--- NOTE | 2019-01-06 13:33 | W.ED.GENAD ---
Discharge Plan Disposition Patient Disposition: HOME Condition: Good Discharge Details Chief Complaint: Urinary Clinical Impression: Suprapubic catheter, Mechanical complication of suprapubic catheter Primary Care Provider: Nader Dobson ED Provider: Michael Locke Home Meds and New Rx's Prescriptions: No Action acetaminophen [Tylenol] 325 MG tablet 650 mg PO PRN RF: 0 alendronate 70 MG tablet 70 mg PO DIRECTED RF: 0 levetiracetam [Keppra] 750 MG tablet 1,500 mg PO BID RF: 0 docusate sodium 100 mg Capsule 100 mg PO DAILY PRN (Reason: Constipation) RF: 0 polyethylene glycol 3350 [Miralax] 17 gram/dose Powder 17 g PO DAILY PRNRF: 0 cetirizine 10 mg Tablet 10 mg PO DAILY PRNRF: 0 mycophenolate mofetil 250 mg Capsule 250 mg PO BID RF: 0 prednisone 5 mg Tablet 5 mg PO Q OTHER DAY RF: 0 hydrocortisone 1 % Cream 1 applic TOPICAL BID-QID PRNRF: 0 esomeprazole magnesium [Nexium] 40 mg Capsule,Delayed Release(Dr/Ec) 40 mg PO DAILY RF: 0 guaifenesin [Tussin] 100 mg/5 mL Liquid 200 mg PO Q4H PRNRF: 0 citalopram 20 mg Tablet 20 mg PO DAILY RF: 0 warfarin 5 mg Tablet 5 mg PO DAILY RF: 0 tramadol 50 mg Tablet 50 mg PO HS Qty: 0 RF: 0 lidocaine [Lidoderm] 5 % Adhesive Patch,Medicated 1 patch topical DAILY@1800 Qty: 14 RF: 0 magnesium oxide 400 mg Capsule 400 mg PO TID RF: 0 d-mannose Powder 2,000 pwd PO DAILY RF: 0 Central-Maria L Tablet 1 tab PO DAILY RF: 0 terbinafine HCl 1 % Cream 0 g topical BID Qty: 0 RF: 0 nystatin 100,000 unit/gram Powder 1 unit topical BID Qty: 1 RF: 0 tacrolimus 0.5 mg Capsule 2 mg PO QAM Qty: 0 RF: 0 tacrolimus 0.5 mg Capsule 1 mg PO QPM Qty: 0 RF: 0 prednisone 10 mg tablet 10 mg PO DIRECTED Qty: 1 RF: 0 tramadol 50 mg Tablet 25 - 50 mg PO Q8H PRN PRNQty: 12 RF: 0 furosemide 20 mg Tablet 20 mg PO BID Qty: 0 RF: 0 Discharge Instructions Instructions: How to Care for Your Suprapubic Catheter (ED) Additional Instructions: Continue to take all your medications as prescribed. Return immediately to the emergency department for any new or significant worsening of symptoms, catheter dysfunction, fever chills or change in your abdominal discomfort post procedure. Please keep your appointment with [facility] for reassessment of your catheter as scheduled for tomorrow morning. Feel free to call Dr. Berman or [facility] urology also as needed for any further questions. Referrals: [facility] [Outside] (Please keep your appointment as arranged for tomorrow morning for reassessment of your catheter. ) Luis Berman MD [ [facility] STAFF PHYSICIAN] - Discharge Data Discharge Date/Time-TO BE ENTERED AT DEPARTURE: 01/06/19 14:35 Medical Decision Making Patient presenting to the emergency department for chief complaint of suprapubic catheter dysfunction. Patient had suprapubic catheter placed on Saturday and has had intermittent bloody drainage from the catheter but today they were unable to drain the bag. Patient denies any fever chills, change in pain, nausea vomiting, or drainage around the site. Physical exam shows intact in place suprapubic catheter with no purulent drainage, no bleeding from the site, no erythema, mild tenderness surrounding insertional site but otherwise unremarkable exam. Patient does have mix of clear bloody urine present in the bag and catheter that seems to be flowing and working fine. Plan to drain the catheter bag and obtain urinary sample along with change the bag out due to stated dysfunction of bag not being of the drain. Given that patient denies any other symptoms and no change in symptoms I do not feel that lab work-up is required at this time. Urinalysis reviewed and did show significant amount of urine blood, trace leukocyte esterase, and 50 RBCs and 5-10 WBCs. Culture was reflexed. Patient denies any UTI type symptoms. I did call and speak with urology department Mallorie Perez NP. She stated that given the patient is on Coumadin that postprocedural bleeding approximately 5 days out of procedure is not uncommon. Discussed potential for antibiotics given questionable urinalysis findings and after discussion she recommended against giving patient any antibiotics unless patient has other symptoms beyond UA findings. I did review primary care records due to patient stating that she had INR checked this morning at the office and INR was 1.1. Given that INR is not severely elevated I feel that patient is more having postprocedural bleeding but with no other symptoms I do not disagree with waiting for urine culture. Spoke with patient and caregiver state patient has a follow-up appointment with [facility] tomorrow morning which I feel is appropriate. Very close return precautions were discussed otherwise I feel patient is safe for discharge. After discussion of diagnosis and plan of care patient and caregiver has no further needs, questions, or concerns and states clear understanding to return to the emergency department for any worsening symptoms. HPI General Mode of arrival: wheelchair. Date/Time Provider Initiated Documentation: 01/06/19 13:06. Limitations to Documentation: no limitations. Information obtained by: patient, family and RN notes reviewed. History of Present Illness 53 year old F presents to the emergency department with the chief complaint of Urinary catheter problem, described as mild, with intensity rated at 3. Quality is described as aching, and is localized to the pelvis (Surrounding suprapubic catheter site). Patient started experiencing this day(s) (5) Patient notes no other symptoms.. Patient did receive the following treatments prior to arrival, none Related Data Home Medications Medication Instructions Recorded Confirmed acetaminophen [Tylenol] 650 mg PO PRN 08/15/13 10/28/18 alendronate 70 mg PO DIRECTED 08/15/13 10/29/18 levetiracetam [Keppra] 1,500 mg PO BID 08/15/13 10/28/18 docusate sodium 100 mg PO DAILY PRN 08/04/18 10/29/18 polyethylene glycol 3350 [Miralax] 17 g PO DAILY PRN 08/04/18 10/29/18 cetirizine 10 mg PO DAILY PRN 10/19/18 10/29/18 citalopram 20 mg PO DAILY 10/19/18 10/29/18 esomeprazole magnesium [Nexium] 40 mg PO DAILY 10/19/18 10/29/18 guaifenesin [Tussin] 200 mg PO Q4H PRN 10/19/18 10/19/18 hydrocortisone 1 applic TOPICAL BID-QID PRN 10/19/18 10/29/18 mycophenolate mofetil 250 mg PO BID 10/19/18 10/29/18 prednisone 5 mg PO Q OTHER DAY 10/19/18 10/29/18 warfarin 5 mg PO DAILY 10/19/18 10/29/18 lidocaine [Lidoderm] 1 patch TOPICAL DAILY@1800 #14 ea 10/23/18 10/29/18 tramadol 50 mg PO HS #0 tab 10/23/18 10/28/18 Central-Maria L 1 tab PO DAILY 10/29/18 10/29/18 d-mannose 2,000 pwd PO DAILY 10/29/18 10/29/18 magnesium oxide 400 mg PO TID 10/29/18 10/29/18 furosemide 20 mg PO BID #0 tab 11/04/18 10/29/18 nystatin 1 unit TOPICAL BID #1 g 11/04/18 prednisone 10 mg PO DIRECTED #1 tab 11/04/18 tacrolimus 1 mg PO QPM #0 cap 11/04/18 tacrolimus 2 mg PO QAM #0 cap 11/04/18 terbinafine HCl 0 g TOPICAL BID #0 g 11/04/18 tramadol 25 - 50 mg PO Q8H PRN PRN #12 tab 11/04/18 Previous Rx's Medication Instructions Recorded lidocaine [Lidoderm] 1 patch TOPICAL DAILY@1800 #14 ea 10/23/18 tramadol 50 mg PO HS #0 tab 10/23/18 furosemide 20 mg PO BID #0 tab 11/04/18 nystatin 1 unit TOPICAL BID #1 g 11/04/18 prednisone 10 mg PO DIRECTED #1 tab 11/04/18 tacrolimus 1 mg PO QPM #0 cap 11/04/18 tacrolimus 2 mg PO QAM #0 cap 11/04/18 terbinafine HCl 0 g TOPICAL BID #0 g 11/04/18 tramadol 25 - 50 mg PO Q8H PRN PRN #12 tab 11/04/18 Allergies Allergy/AdvReac Type Severity Reaction Status Date / Time codeine Allergy Unverified 10/19/18 13:53 divalproex sodium Allergy Unverified 10/19/18 13:53 [From Depakote] povidone-iodine AdvReac Skin Rash Unverified 10/19/18 13:53 [From Betadine] soap [From Betadine] AdvReac Skin Rash Unverified 10/19/18 13:53 General Stated Complaint: Urinary AD: 3 Review of Systems Constitutional Denies chills, Denies fever(s), Denies malaise and Denies weakness Cardiovascular Denies chest pain Respiratory Reports system reviewed and no additional complaints, except as docu Gastrointestinal Denies abdominal pain, Denies nausea and Denies vomiting Genitourinary Reports as per HPI, Reports hematuria and Reports urinary urgency Neurologic Denies confusion and Denies weakness Psychiatric Denies confusion [facility] Medical History Chronic anticoagulation Chronic kidney disease Convulsions Hyperparathyroidism Neurogenic bladder Osteoporosis Peripheral neuropathy Protein S deficiency TBI (traumatic brain injury) Surgical History Colonoscopy - MAC (02/11/15) INO MERINO Fistula creation Renal Transplant Social History Smoking/Tobacco Use Status: Never Alcohol Intake: never Drug use: Never Substance use type: does not use Do you feel safe at home: Yes Do you feel safe in your relationship?: Yes Additional Social history: Lives in [facility] in [place]. Has [facility] care there as well. Exam Const General: cooperative and no acute distress Orientation: alert, awake and oriented x3 Resp Effort & Inspection: normal respiratory effort and able to speak in complete sentences Auscultation: clear to auscultation bilaterally Cardio Rate: regular rate Rhythm: regular rhythm Heart Sounds: S1 normal and S2 normal GI Inspection: other (in place suprapubic catheter,no erythema, no purulent drainage) Palpation: tender suprapubicly (Around incisional site) Neuro General: alert, awake and oriented x3 Extrem General: normal capillary refill Course Vital Signs Temperature 36.6 C 01/06/19 13:13 Pulse 95 H 01/06/19 13:13 Respiratory Rate 01/06/19 13:13 Blood Pressure 105/59 L 01/06/19 13:13 Pulse Oximetry 93 L 01/06/19 13:13 Temperature 36.6 C 01/06/19 13:13 Temperature Source Skin 01/06/19 13:13 Pulse 95 H 01/06/19 13:13 Respiratory Rate 01/06/19 13:13 Respiratory Effort Non-Labored 01/06/19 13:20 Blood Pressure 105/59 L 01/06/19 13:13 Blood Pressure Position Sitting 01/06/19 13:13 Pulse Oximetry 93 L 01/06/19 13:13 Oxygen Delivery Method Room Air 01/06/19 13:13 Oxygen Flow Rate 0 01/06/19 13:13
--- NOTE | 2019-01-06 13:37 | NUR.NOTE ---
Nursing Note: pt transfer 2 assist to bed
--- NOTE | 2019-01-06 13:44 | NUR.NOTE ---
Nursing Note: urine collection bag changed per provider. Pt tolerated well. Pt education on collection bag. clear yellow urine draining.
[2019-01-06 13:50] LABS: Bilirubin Negative (Negative); Blood Large (Negative); Clarity Clear (Clear); Glucose Negative (Negative); Ketones Negative (Negative); Leukocyte Esterase Trace (Negative); Nitrite Negative (Negative); Urobilinogen 0.2 EU/dL (Up TO 0.2); pH 5.5 (5-8)
[2019-01-06 13:58] LABS: Bacteria Few HPF (Negative); Crystals Few Calcium Oxalate HPF (Negative); Epithelial Cells Few HPF (Negative); Mucus Trace (Negative); RBC >50 (0-2)
[2019-01-06 13:59] LABS: C & S Indicated? Yes; Casts Negative LPF (Negative)
== END 2019-01-06 14:35 | disposition home or self-care (01) ==
PROVIDERS: Emergency Provider Nurse Practitioner Family; PCP Internal Medicine
DX: T83.098A Other mechanical complication of other urinary catheter, initial encounter (principal); Z79.01 Long term (current) use of anticoagulants; N18.9 Chronic kidney disease, unspecified; Z94.0 Kidney transplant status; Z96.0 Presence of urogenital implants
CPT/HCPCS: 87077; 99282; 81003; 81015; 87086; 87186

== ENCOUNTER 2019-01-07 16:31 | Outpatient (REF) | payer MEDICARE, MEDICAID, SELFPAY ==
[2019-01-07 21:43] LABS: INR 1.2 (0.9-1.1); Prothrombin Time 11.7 sec (9.3-11.0)
== END 2019-01-07 16:51 ==
LOC: NCHCN 16:31
PROVIDERS: PCP Internal Medicine; Visit Provider Internal Medicine
DX: I25.2 Old myocardial infarction (principal); Z79.01 Long term (current) use of anticoagulants
CPT/HCPCS: 85610

== ENCOUNTER 2019-01-09 11:20 | Outpatient (REF) | payer MEDICARE, MEDICAID, SELFPAY ==
[2019-01-09 12:33] LABS: Prothrombin Time 11.5 sec (9.3-11.0)
[2019-01-09 12:34] LABS: INR 1.1 (0.9-1.1)
== END 2019-01-09 11:40 ==
LOC: NCHCN 11:20
PROVIDERS: PCP Internal Medicine; Visit Provider Internal Medicine
DX: M18.9 Osteoarthritis of first carpometacarpal joint, unspecified (principal); I50.33 Acute on chronic diastolic (congestive) heart failure; I25.2 Old myocardial infarction; Z79.899 Other long term (current) drug therapy
CPT/HCPCS: 85610

== ENCOUNTER 2019-01-12 23:21 | Outpatient (REF) | payer MEDICARE, MEDICAID, SELFPAY | END 2019-01-12 23:41 | LOC: NCHCN 23:21 | PROVIDERS: PCP Internal Medicine; Visit Provider Internal Medicine | DX: D68.59 Other primary thrombophilia (principal) | CPT/HCPCS: 85610 ==

== ENCOUNTER 2019-01-13 15:54 | Outpatient (CLI) | payer MEDICARE, MEDICAID, SELFPAY ==
[2019-01-13 16:20] LABS: INR 1.4 (0.9-1.1); Prothrombin Time 13.8 sec (9.3-11.0)
== END 2019-01-13 16:14 ==
PROVIDERS: PCP Internal Medicine; Visit Provider Internal Medicine
DX: N18.9 Chronic kidney disease, unspecified (principal); D68.59 Other primary thrombophilia; I25.2 Old myocardial infarction; Z79.01 Long term (current) use of anticoagulants
CPT/HCPCS: 85610

== ENCOUNTER 2019-01-15 13:04 | Outpatient (REF) | payer MEDICARE, MEDICAID, SELFPAY ==
[2019-01-15 13:52] LABS: INR 1.5 (0.9-1.1); Prothrombin Time 14.8 sec (9.3-11.0)
== END 2019-01-15 13:24 ==
LOC: NCHCN 13:04
PROVIDERS: PCP Internal Medicine; Visit Provider Internal Medicine
DX: R79.1 Abnormal coagulation profile (principal); D68.59 Other primary thrombophilia; N18.9 Chronic kidney disease, unspecified; Z51.81 Encounter for therapeutic drug level monitoring
CPT/HCPCS: 85610

== ENCOUNTER 2019-01-16 11:06 | Outpatient (REF) | payer MEDICARE, MEDICAID, SELFPAY | END 2019-01-16 11:26 | LOC: NCHCN 11:06 | PROVIDERS: PCP Internal Medicine; Visit Provider Internal Medicine | DX: D68.59 Other primary thrombophilia (principal); Z53.8 Procedure and treatment not carried out for other reasons | CPT/HCPCS: 85610 ==

== ENCOUNTER 2019-01-16 15:25 | Outpatient (CLI) | payer MEDICARE, MEDICAID, SELFPAY ==
[2019-01-16 15:54] LABS: INR 1.8 (0.9-1.1); Prothrombin Time 18.1 sec (9.3-11.0)
== END 2019-01-16 15:45 ==
PROVIDERS: PCP Internal Medicine; Visit Provider Internal Medicine
DX: R79.1 Abnormal coagulation profile (principal); Z79.01 Long term (current) use of anticoagulants
CPT/HCPCS: 36415; 85610

== ENCOUNTER 2019-01-18 13:21 | Outpatient (CLI) | payer MEDICARE, MEDICAID, SELFPAY ==
[2019-01-18 13:53] LABS: Prothrombin Time 20.6 sec (9.3-11.0)
[2019-01-18 13:57] LABS: INR 2.1 (0.9-1.1)
== END 2019-01-18 13:41 ==
PROVIDERS: PCP Internal Medicine; Visit Provider Internal Medicine
DX: I50.33 Acute on chronic diastolic (congestive) heart failure (principal); Z79.01 Long term (current) use of anticoagulants
CPT/HCPCS: 36415; 85610

== ENCOUNTER 2019-02-05 07:27 | Inpatient (IN) | payer MEDICARE, MEDICAID, SELFPAY ==
[2019-02-05 07:36] VITALS: BP 125/56; PULSE 80; RESP 16; TEMP 36.4; O2SAT 95
--- NOTE | 2019-02-05 07:59 | DI.CT_ITS ---
EXAM: CT HEAD CERVICAL SPINE WO CLINICAL HISTORY: fall, hit head, on coumadin, OLD C1 fx. TECHNIQUE: COMPARISON: HEAD WITHOUT CONTRAST from 07/04/2016 FINDINGS: CT examination of the cervical spine was performed utilizing multi slice acquisition and multiplanar reconstruction. There are innumerable lytic lesions of varying size of all the bones of the cervical spine as well as portions of this skull base including the occipital condyles with marked bony loss at multiple sites. There is nondisplaced facet fracture of C5 on the right. No additional acute fra cture identified. No cervical mass or adenopathy. Visualized lung apices are clear. Presumed old right occipital infarct noted. No evidence of acute hemorrhage or midline shift. Possi ble area of decreased attenuation in left cerebellar hemisphere, question old infarct, intracranial m ass not excluded. Correlation with brain MRI recommended including post contrast imaging. IMPRESSION: Innumerable lytic lesions of the cervical spine, consider multiple myeloma. Nondisplaced right C5 fa cet fracture which should be stable. Old left occipital infarct. No gross acute hemorrhage. Question left cerebellar lesion, correlation with MRI recommended including postcontrast imaging.
--- NOTE | 2019-02-05 07:59 | DI.RAD_ITS ---
EXAM: XR KNEE LT 3V AP,LAT,NILDA INDICATION: fall, pain in Left femur/knee. COMPARISON: LEFT KNEE 3 VIEW COMPLETE from 08/02/2017 TECHNIQUE: 2D digital imaging was performed. FINDINGS: Four views were obtained. IMPRESSION:
--- NOTE | 2019-02-05 07:59 | DI.RAD_ITS ---
EXAM: XR FEMUR LT INDICATION: fall, pain in Left femur/knee. COMPARISON: No exams were available for comparison TECHNIQUE: 2D digital imaging was performed. FINDINGS: Four views were obtained. There are severe degenerative changes of the hip. No acute fracture seen. IMPRESSION:
--- NOTE | 2019-02-05 08:06 | W.ED.GENAD ---
Discharge Plan Disposition Patient Disposition: [facility] INPATIENT Condition: Good Discharge Details Chief Complaint: Trauma Clinical Impression: Cervical spine fracture, Lytic bone lesions on xray, Fall, Cerebellar lesion Primary Care Provider: Nader Dobson ED Provider: Michelet Asencio Home Meds and New Rx's Prescriptions: No Action acetaminophen [Tylenol] 325 MG tablet 650 mg PO PRN RF: 0 alendronate 70 MG tablet 70 mg PO DIRECTED RF: 0 levetiracetam [Keppra] 750 MG tablet 1,500 mg PO BID RF: 0 docusate sodium 100 mg Capsule 100 mg PO DAILY PRN (Reason: Constipation) RF: 0 polyethylene glycol 3350 [Miralax] 17 gram/dose Powder 17 g PO DAILY PRNRF: 0 cetirizine 10 mg Tablet 10 mg PO DAILY PRNRF: 0 mycophenolate mofetil 250 mg Capsule 250 mg PO BID RF: 0 prednisone 5 mg Tablet 5 mg PO Q OTHER DAY RF: 0 hydrocortisone 1 % Cream 1 applic TOPICAL BID-QID PRNRF: 0 esomeprazole magnesium [Nexium] 40 mg Capsule,Delayed Release(Dr/Ec) 40 mg PO DAILY RF: 0 guaifenesin [Tussin] 100 mg/5 mL Liquid 200 mg PO Q4H PRNRF: 0 citalopram 20 mg Tablet 20 mg PO DAILY RF: 0 warfarin 5 mg Tablet 5 mg PO DAILY RF: 0 tramadol 50 mg Tablet 50 mg PO HS Qty: 0 RF: 0 lidocaine [Lidoderm] 5 % Adhesive Patch,Medicated 1 patch topical DAILY@1800 Qty: 14 RF: 0 magnesium oxide 400 mg Capsule 400 mg PO TID RF: 0 d-mannose Powder 2,000 pwd PO DAILY RF: 0 Central-Maria L Tablet 1 tab PO DAILY RF: 0 terbinafine HCl 1 % Cream 0 g topical BID Qty: 0 RF: 0 nystatin 100,000 unit/gram Powder 1 unit topical BID Qty: 1 RF: 0 tacrolimus 0.5 mg Capsule 2 mg PO QAM Qty: 0 RF: 0 tacrolimus 0.5 mg Capsule 1 mg PO QPM Qty: 0 RF: 0 prednisone 10 mg tablet 10 mg PO DIRECTED Qty: 1 RF: 0 tramadol 50 mg Tablet 25 - 50 mg PO Q8H PRN PRNQty: 12 RF: 0 furosemide 20 mg Tablet 20 mg PO BID Qty: 0 RF: 0 venlafaxine 75 mg Tablet 75 mg PO DAILY RF: 0 Medical Decision Making This is a 53-year-old female with a past medical history of hypercoagulability with protein S deficiency on Coumadin, chronic congestive heart failure, renal transplant secondary to polycystic kidney disease on tacrolimus, convulsions on Keppra, suprapubic catheter placement, tube recently changed on Saturday (3 days ago) and chronic left-sided hip pain who presents today for evaluation of fall. Patient was at home when she had a mechanical trip well ambulating with her walker, she fell and did hit her head. She denies any loss of consciousness. She also landed on her left knee which caused significant pain. She was unable to get up without assistance. She was brought by EMS for further evaluation. She is here with her caregiver. Physical exam demonstrates no clinical evidence of trauma to the head, no C-spine tenderness, no pain in the upper extremities or chest. No hip tenderness, she does have mild left knee distal femur tenderness. The patient is a poor historian. She does have chronic left hip pain, and does chronically struggle with ambulation. Signs and symptoms are certainly concerning for an osseous injury. Because of her Coumadin use and her history of hitting her head we will get a CT scan of the head neck for further assessment. We will give Tylenol for pain. [address] scan results have returned, there is evidence of an atypical cerebellar lesion, as well as a nondisplaced right C5 facet fracture, and old left occipital infarct, no acute gross hemorrhage. Of concern there are innumerable lytic lesions in the cervical spine, concerning for multiple myeloma. Questionable potential for renal osteodystrophy. X-ray results per Dr. Heath are negative for hip knee and femur. Patient's pain is controlled. With the patient's multiple atypical lesions, although there is no evidence of unstable C-spine fracture patient was transition from regular c-collar to Harrison collar for comfort. With the atypical cerebellar lesion in spite of no clear evidence of acute strokelike symptoms, the patient is both not a candidate for TPA with her Coumadin use, and not a candidate because of her lack of appreciable neurologic deficit and timing question. With the patient's multiple comorbidities, multiple lesions, I do feel that she would benefit from inpatient observation for PT, OT rehab, as well as MRI of the brain for further intracranial assessment. I discussed the case with the hospitalist Dr. Dumont, she agrees with the assessment and plan. I have extensively reviewed the treatment plan and discharge instructions with the patient and their family. I have addressed all patient concerns at this time. The patient and family was made aware of what symptoms to monitor for that would warrant a return to the emergency department. Discussed the plan with the patient and family, they demonstrate verbal understanding and agreement with our assessment and plan at this time. 19: 17 Rate 76 intervals normal, mild left ventricular hypertrophy, no significant ST elevation or depression, there is nonspecific T wave flattening in lead III, however review of prior EKG from 10/19/2018 demonstrates near identical findings aside for the voltage criterion. EXAM: XR FEMUR LT INDICATION: fall, pain in Left femur/knee. COMPARISON: No exams were available for comparison TECHNIQUE: 2D digital imaging was performed. FINDINGS: Four views were obtained. There are severe degenerative changes of the hip. No acute fracture seen. IMPRESSION: EXAM: CT HEAD CERVICAL SPINE WO CLINICAL HISTORY: fall, hit head, on coumadin, OLD C1 fx. TECHNIQUE: COMPARISON: HEAD WITHOUT CONTRAST from 07/04/2016 FINDINGS: CT examination of the cervical spine was performed utilizing multi slice acquisition and multiplanar reconstruction. There are innumerable lytic lesions of varying size of all the bones of the cervical spine as well as portions of this skull base including the occipital condyles with marked bony loss at multiple sites. There is nondisplaced facet fracture of C5 on the right. No additional acute fracture identified. No cervical mass or adenopathy. Visualized lung apices are clear. Presumed old right occipital infarct noted. No evidence of acute hemorrhage or midline shift. Possible area of decreased attenuation in left cerebellar hemisphere, question old infarct, intracranial mass not excluded. Correlation with brain MRI recommended including post contrast imaging. IMPRESSION: Innumerable lytic lesions of the cervical spine, consider multiple myeloma. Nondisplaced right C5 facet fracture which should be stable. Old left occipital infarct. No gross acute hemorrhage. Question left cerebellar lesion, correlation with MRI recommended including postcontrast imaging. EXAM: XR HIP LT COMPLETE AP PELVIS INDICATION: left hip pain after fall. COMPARISON: XR HIP LT 1V from 05/21/2018 XR FEMUR LT from 02/05/2019 TECHNIQUE: 2D digital imaging was performed. FINDINGS: Lateral view of the left hip shows no evidence of fracture. HPI General Date/Time Provider Initiated Documentation: 02/05/19 07:59. HPI Narrative: This is a 53-year-old female with a past medical history of hypercoagulability with protein S deficiency on Coumadin, chronic congestive heart failure, renal transplant secondary to polycystic kidney disease, convulsions on Keppra, suprapubic catheter placement, tube recently changed on Saturday (3 days ago) and chronic left-sided hip pain who presents today for evaluation of fall. Patient normally ambulates with a walker. Today she was getting out of her bed and ambulating forward when she had a mechanical trip and fall. She states that she struck her head, and recalls the entire event. She also landed on her left knee. She did not get up herself, and did require help and assistance. EMS was contacted and she was brought to the ER for further evaluation. Patient complains of pain in the left knee and distal femur. Worse with movement and palpation. Improved by nothing. She denies any headache, or neck pain. She denies any loss of consciousness. She does recall the entire event. She denies any chest pain, shortness of breath, chest tightness, chest heaviness, nausea, vomiting, diarrhea, abdominal pain, fever, chills. She denies any other complaints at this time. Care provider is at bedside. Patient states she does have chronic difficulty with ambulation that when she uses a walker. No other complaints or modifying factors at this time. Related Data Home Medications Medication Instructions Recorded Confirmed acetaminophen [Tylenol] 650 mg PO PRN 08/15/13 02/05/19 alendronate 70 mg PO DIRECTED 08/15/13 02/05/19 levetiracetam [Keppra] 1,500 mg PO BID 08/15/13 02/05/19 docusate sodium 100 mg PO DAILY PRN 08/04/18 02/05/19 polyethylene glycol 3350 [Miralax] 17 g PO DAILY PRN 08/04/18 02/05/19 cetirizine 10 mg PO DAILY PRN 10/19/18 02/05/19 citalopram 20 mg PO DAILY 10/19/18 02/05/19 esomeprazole magnesium [Nexium] 40 mg PO DAILY 10/19/18 02/05/19 guaifenesin [Tussin] 200 mg PO Q4H PRN 10/19/18 02/05/19 hydrocortisone 1 applic TOPICAL BID-QID PRN 10/19/18 02/05/19 mycophenolate mofetil 250 mg PO BID 10/19/18 02/05/19 prednisone 5 mg PO Q OTHER DAY 10/19/18 02/05/19 warfarin 5 mg PO DAILY 10/19/18 02/05/19 lidocaine [Lidoderm] 1 patch TOPICAL DAILY@1800 #14 ea 10/23/18 02/05/19 tramadol 50 mg PO HS #0 tab 10/23/18 02/05/19 Central-Maria L 1 tab PO DAILY 10/29/18 02/05/19 d-mannose 2,000 pwd PO DAILY 10/29/18 02/05/19 magnesium oxide 400 mg PO TID 10/29/18 02/05/19 furosemide 20 mg PO BID #0 tab 11/04/18 02/05/19 nystatin 1 unit TOPICAL BID #1 g 11/04/18 02/05/19 prednisone 10 mg PO DIRECTED #1 tab 11/04/18 02/05/19 tacrolimus 1 mg PO QPM #0 cap 11/04/18 02/05/19 tacrolimus 2 mg PO QAM #0 cap 11/04/18 02/05/19 terbinafine HCl 0 g TOPICAL BID #0 g 11/04/18 02/05/19 tramadol 25 - 50 mg PO Q8H PRN PRN #12 tab 11/04/18 02/05/19 venlafaxine 75 mg PO DAILY 02/05/19 02/05/19 Previous Rx's Medication Instructions Recorded lidocaine [Lidoderm] 1 patch TOPICAL DAILY@1800 #14 ea 10/23/18 tramadol 50 mg PO HS #0 tab 10/23/18 furosemide 20 mg PO BID #0 tab 11/04/18 nystatin 1 unit TOPICAL BID #1 g 11/04/18 prednisone 10 mg PO DIRECTED #1 tab 11/04/18 tacrolimus 1 mg PO QPM #0 cap 11/04/18 tacrolimus 2 mg PO QAM #0 cap 11/04/18 terbinafine HCl 0 g TOPICAL BID #0 g 11/04/18 tramadol 25 - 50 mg PO Q8H PRN PRN #12 tab 11/04/18 Allergies Allergy/AdvReac Type Severity Reaction Status Date / Time codeine Allergy Unverified 02/05/19 07:42 divalproex sodium Allergy Unverified 02/05/19 07:42 [From Depakote] povidone-iodine AdvReac Skin Rash Unverified 02/05/19 07:42 [From Betadine] soap [From Betadine] AdvReac Skin Rash Unverified 02/05/19 07:42 General Stated Complaint: Trauma AD: 3 Review of Systems Review of Systems ROS Unobtainable: All systems reviewed & are unremarkable except as noted in HPI and below [facility] Social History Smoking/Tobacco Use Status: Never Alcohol Intake: never Drug use: Never Substance use type: does not use Do you feel safe at home: Yes Do you feel safe in your relationship?: Yes Additional Social history: Lives in retirement in [place]. Has VNA care there as well. Exam Narrative Exam Narrative: 1.Const: Well-nourished, Well-developed, appearing stated age 2.Eyes: PERRL, no conjunctival injection, and symmetrical lids. No dione horizontal vertical or rotatory nystagmus. 3.ENT: Atraumatic external nose and ears. Moist MM. Neck: Symmetric, trachea midline, No thyromegaly. There is no evidence of raccoon eyes, aguirre sign, CSF rhinorrhea, mastoid tenderness, cranial crepitus, hemotympanum, exophthalmos, or hyphema. Patient demonstrates intact dentition with no signs of tooth avulsion or fracture, no signs of jaw deformity, no evidence of a LeFort's fracture, with an intact palate, nose and orbital region. There is no evidence of a nasal septal hematoma. No proptosis. Jaw closes symmetrically. Airway is clear. 4.CVS: +S1/S2, notable murmur auscultated loudest over the left mid axillary line. Peripheral pulses 2+ and equal in all extremities. Brisk capillary refill in all extremities. 5.RESP: Unlabored respiratory effort. Clear to auscultation bilaterally. No wheezes rales or rhonchi 6.GI: Soft, Nontender/Nondistended, No hepatosplenomegaly. No guarding or rebound. Suprapubic catheter in place. Urine is clear. 7.MSK: Normocephalic, Extremities w/o deformity. No cyanosis or clubbing, notable pain and tenderness over the left patella, and distal femur. Minimal redness, no significant swelling or deformity. Patient does have reduced movement of her lower extremities at baseline, however she is able to move her upper and lower extremities. Pelvis is stable to anterior and lateral compression. No significant pain with logroll of the legs. No midline spinal tenderness. In particular no midline C-spine tenderness with normal rotation, flexion, and side bending. 8.Skin: Warm, Dry. No rashes or lesions. 9.Neuro: regional business manager II-XII grossly intact. Sensation grossly intact, no focal neurologic deficits. Moves upper extremities with no evidence of severe dysdiadochokinesia or dysmetria. Unable to perform [id number] test secondary to knee pain 10.Psych: (AAO) x3. Appropriate mood and affect Course Vital Signs Vital signs: Vital Signs Temperature 36.4 C L 02/05/19 07:36 Pulse 80 02/05/19 07:36 Respiratory Rate 16 02/05/19 07:36 Blood Pressure 125/56 L 02/05/19 07:36 Pulse Oximetry 95 02/05/19 07:36 Temperature 36.4 C L 02/05/19 07:36 Temperature Source Skin 02/05/19 07:36 Pulse 80 02/05/19 07:36 Respiratory Rate 16 02/05/19 07:36 Respiratory Effort Non-Labored 02/05/19 07:36 Blood Pressure 125/56 L 02/05/19 07:36 Blood Pressure Position Supine 02/05/19 07:36 Pulse Oximetry 95 02/05/19 07:36 Oxygen Delivery Method Room Air 02/05/19 07:36 Oxygen Flow Rate 0 02/05/19 07:36 Pain Level 2 02/05/19 07:36
[2019-02-05] MEDS: Acetaminophen 500 MG TAB 1000 MG PO (08:30)
[2019-02-05 08:32] LABS: Absolute Basophil Count 0.03 k/cumm (0.0-0.2); Absolute Eosinophil Count 0.24 k/cumm (0.0-0.7); Absolute Lymphocyte Count 1.18 k/cumm (1.2-3.4); Absolute Monocyte Count 0.43 k/cumm (0.11-0.7); Basophils % 0.6; Eosinophils % 4.7; HCT 37.7 % (36.0-46.0); HGB 12.4 g/dL (12.0-15.5); Lymphocytes % 23.2; Mean Corp. HGB Concentration 32.9 g/dL (32.0-36.0); Mean Corpuscular Hemoglobin 27.5 pg (27.0-33.0); Mean Corpuscular Volume 83.6 fL (80-95); Mean Platelet Volume 8.7 fL (8.0-11.0); Monocytes % 8.5; Platelet Count 269 x1000/uL (130-400); RBC 4.51 m/cumm (4.00-5.20); RBC Distribution Width 15.2 % (11.7-14.6); White Blood Cell Count 5.08 k/cumm (4.4-10.8)
[2019-02-05 08:39] LABS: Anion Gap 6.6 mmol/L (3-11); BUN 13 mg/dL (7-18); CO2 30.4 mmol/L (21.0-32.0); CREATININE 0.68 mg/dL (0.55-1.02); Calcium 8.7 mg/dL (8.5-10.1); Chloride 101 mmol/L (98-107); Glucose 94 mg/dL (70-100); Potassium 3.9 mmol/L (3.5-5.1); Sodium 138 mmol/L (136-145)
[2019-02-05 08:47] LABS: INR 1.2 (0.9-1.1); Prothrombin Time 11.7 sec (9.3-11.0)
--- NOTE | 2019-02-05 08:52 | DI.RAD_ITS ---
EXAM: XR HIP LT COMPLETE AP PELVIS INDICATION: left hip pain after fall. COMPARISON: XR HIP LT 1V from 05/21/2018 XR FEMUR LT from 02/05/2019 TECHNIQUE: 2D digital imaging was performed. FINDINGS: Lateral view of the left hip shows no evidence of fracture. IMPRESSION:
[2019-02-05 12:04] VITALS: BP 101/51; PULSE 76; RESP 16; TEMP 36.4; O2SAT 94
[2019-02-05 12:30] VITALS: BP 101/51; PULSE 76; RESP 16; TEMP 36.6; O2SAT 93
[2019-02-05 12:50] VITALS: BP 119/65; PULSE 56; RESP 18; TEMP 36.6; O2SAT 91
--- NOTE | 2019-02-05 14:24 | HPE_ITS ---
Date of service: 02/05/19 Time of Service: 14:24 Assessment and Plan Assessment and plan (1) C5 vertebral fracture: Status: Acute Assessment and plan: stabilized in a cervical collar. PT/OT consulted. Will seek recommendations as far as how long she has to wear a cervical collar (2) Left knee pain: Status: Acute Assessment and plan: No obvious fx on XR. I feel crepitus in the knee so she likely does have at a minimum significant arthritis. The patient is not interested in pursuing a surgical consultation or intervention - she is interested in comfort. For now, her pain seems to be quite well controlled with morphine. PT consulted. Palliative care to help establish the patient's disposition (3) Ambulatory dysfunction: Status: Acute Assessment and plan: PT/OT consults (4) Adrenal insufficiency: Status: Acute Assessment and plan: Chronic. Monitor for signs of adrenal crisis. Continue home prednisone (5) History of kidney transplant: Status: Acute Assessment and plan: Continue immunosupressive therapy. (6) Hypercoagulable state, primary: Status: Acute Assessment and plan: Continue coumadin tonight as INR low. Patient and her sister did express that they are not interested in any more blood draws. I think this is the point at which anticoagulation can likely be d/c'ed - will discuss with palliative care. (7) Lytic bone lesions on xray: Status: Acute Assessment and plan: Multiple myeloma vs osteodystrophy of renal disease. Darlene and Nicol are not interested in investigating this further and would like to focus on comfort. (8) Cerebellar lesion: Status: Acute Assessment and plan: As above (9) Discharge planning issues: Status: Acute Assessment and plan: DNR/DNI Palliative care consulted - ? home with hospice (10) DVT prophylaxis: Status: Acute Assessment and plan: On coumadin History of Present Illness History of Present Illness Chief Complaint: Fall Narrative: Ms Farah is a 53 year old female with PMHx of renal failure s/p kidney transplant, on immunosupression with tacrolimus, mycophenolate, and prednisone, as well as history of hypercoagulable state on coumadin, neurogenic bladder, s/p suprapubic catheter, and seizure disorder, who fell trying to get out of bed this morning, hitting the back of her head, neck, and left knee. Evidently, she told ED that she was ambulating with a walker when she fell. In both stories, the patient states she did not lose consciousness. She could not get up, so she was brought to [facility] ED by ambulance, where her workup revealed a stable nondisplaced right C5 facet fracture, an old left occipital infarct, a question of cerebellar lesion, and innumerable lytic lesions in C spine, such as in multiple myeloma. She did not fracture her LLE. Darlene was very uncomfortable when I saw her, with a cervical collar on, reporting pain in her neck as well as in her L knee. She is very clear that she is interested in being made comfortable and going home. She is now DNR, DNI, and her wishes about focus on comfort measures have been very consistent in her last several visits with us. I discussed her case with her sister, Nicol, who is her guardian and supports this direction of care. The patient feels better with morphine on board. Review of Systems Review of Systems Narrative: 12 systems attempted to be reviewed. This is limited by Darlene's discomfort, but she denies any other complains other than the ones mentioned in HPI. [facility] Social History Smoking/Tobacco Use Status: Never Alcohol Intake: never Drug use: Never Substance use type: does not use Do you feel safe at home: Yes Do you feel safe in your relationship?: Yes Additional Social history: Lives in senior living in [place]. Has VNA care there as well. Meds Home Medications and Allergies Home Medications Medication Instructions Recorded Confirmed Type acetaminophen [Tylenol] 650 mg PO PRN 08/15/13 02/05/19 History alendronate 70 mg PO DIRECTED 08/15/13 02/05/19 History levetiracetam [Keppra] 1,500 mg PO BID 08/15/13 02/05/19 History citalopram 20 mg PO DAILY 10/19/18 02/05/19 History mycophenolate mofetil 250 mg PO BID 10/19/18 02/05/19 History prednisone 5 mg PO Q OTHER DAY 10/19/18 02/05/19 History warfarin 5 mg PO DAILY 10/19/18 02/05/19 History lidocaine [Lidoderm] 1 patch TOPICAL DAILY@1800 #14 ea 10/23/18 02/05/19 Rx tramadol 50 mg PO HS #0 tab 10/23/18 02/05/19 Rx Central-Maria L 1 tab PO DAILY 10/29/18 02/05/19 History d-mannose 2,000 pwd PO DAILY 10/29/18 02/05/19 History magnesium oxide 400 mg PO TID 10/29/18 02/05/19 History furosemide 20 mg PO BID #0 tab 11/04/18 02/05/19 Rx nystatin 1 unit TOPICAL BID #1 g 11/04/18 02/05/19 Rx tacrolimus 1 mg PO QPM #0 cap 11/04/18 02/05/19 Rx tacrolimus 2 mg PO QAM #0 cap 11/04/18 02/05/19 Rx terbinafine HCl 0 g TOPICAL BID #0 g 11/04/18 02/05/19 Rx tramadol 25 - 50 mg PO Q8H PRN PRN #12 tab 11/04/18 02/05/19 Rx venlafaxine 75 mg PO DAILY 02/05/19 02/05/19 History Allergies Allergy/AdvReac Type Severity Reaction Status Date / Time codeine Allergy Unverified 02/05/19 07:42 divalproex sodium Allergy Unverified 02/05/19 07:42 [From Depakote] povidone-iodine AdvReac Skin Rash Unverified 02/05/19 07:42 [From Betadine] soap [From Betadine] AdvReac Skin Rash Unverified 02/05/19 07:42 Exam Narrative Exam Narrative: General: Very pleasant, uncomfortable middle-aged female, at her baseline mental status Neurological: A&Ox2-3, no obvious focal deficits, at her baseline Psychiatric: mildly anxious Skin: visible skin intact except for a slight erythematous area on L knee without a clear abrasion HEENT: Normocephalic, wearing a neck collar, EOMI, MMM, clear oropharynx, unable to examine the thyroid, neck vessels due to cervical collar being in plae Cardiovascular: RRR, + AI Lungs: CTAB Gastrointestinal: abdomen is soft, nontender Genitourinary: has a suprapubic catheter Extremities: +1 edema BLE's, no c/c. Results Imaging Additional studies: CT head/C-spine: Innumerable lytic lesions of the cervical spine, consider multiple myeloma. Nondisplaced right C5 facet fracture which should be stable. Old left occipital infarct. No gross acute hemorrhage. Question left cerebellar lesion, correlation with MRI recommended including postcontrast imaging. XR L femur/knee: Four views were obtained. There are severe degenerative changes of the hip. No acute fracture seen. XR L hip and pelvis: Lateral view of the left hip shows no evidence of fracture. EKG: HR 76, NSR, nonspecific ST-T changes Labs Result diagrams: 02/05/19 07:55 02/05/19 07:55 Labs: Laboratory Results - last 24 hr 02/05/19 02/05/19 02/05/19 07:55 07:55 07:55 WBC 5.08 RBC 4.51 Hgb 12.4 Hct 37.7 MCV 83.6 MCH 27.5 MCHC 32.9 RDW 15.2 H Plt Count 269 MPV 8.7 Immature Gran % 0.0 Neutrophils % 63.0 Lymphocytes % 23.2 Monocytes % 8.5 Eosinophils % 4.7 Basophils % 0.6 Absolute Neutrophils 3.20 Absolute Lymphocytes 1.18 L Absolute Monocytes 0.43 Absolute Eosinophils 0.24 Absolute Basophils 0.03 PT 11.7 H INR 1.2 H APTT 31.0 Sodium 138 Potassium 3.9 Chloride 101 Carbon Dioxide 30.4 Anion Gap 6.6 BUN 13 Creatinine 0.68 Estimated GFR/1.73 m2 >= 60.00 Glucose 94 Calcium 8.7 Last Vital Signs Temp 36.6 C 02/05/19 12:50 Pulse 56 L 02/05/19 12:50 Resp 18 02/05/19 12:50 BP 119/65 02/05/19 12:50 Pulse Ox 91 L 02/05/19 12:50
[2019-02-05] MEDS: MORPHine 2 MG/ML SYR IVP ×2 (14:39→18:55)
[2019-02-05] MEDS: Normal Saline Flush 10 ML SYR IVP ×3 (14:39→22:48)
[2019-02-05] MEDS: ACETAMINOPHEN 1,000 MG/100 ML BTL 400 MG IVPB ×2 (14:40→22:48)
--- NOTE | 2019-02-05 14:59 | PT.INNT ---
Date of service: 02/05/19 PT Notes Patient is a 53-year-old female who presented to the ED on 02/05/2019 due to a mechanical fall while ambulating with walker causing patient to land on the floor and hit her head and L knee. She was diagnosed with non-displaced C5 facet fracture and is placed on [place] multipost collar. Patient declined mobility assessment for today stating that she is in significant pain. She did indicate that she will be willing to try to work with PT tomorrow. Will plan on completing PT evaluation as ordered tomorrow morning. Thank you very much for this referral. Scarlet Jade PT, DPT, CLT [facility]
[2019-02-05 16:30] VITALS: BP 93/58; PULSE 76; RESP 17; TEMP 36.6; O2SAT 97
[2019-02-05] MEDS: Tacrolimus 0.5 MG CAP 1 MG PO (20:45)
[2019-02-05] MEDS: Docusate Sodium 100 MG CAP PO (20:45)
[2019-02-05] MEDS: levETIRAcetam 500 MG TAB 1500 MG PO (20:45)
[2019-02-05] MEDS: Magnesium Oxide 400 MG TAB PO (20:47)
[2019-02-05] MEDS: Warfarin 5 MG TAB PO (20:48)
[2019-02-05] MEDS: Furosemide 20 MG TAB PO (20:48)
[2019-02-05] MEDS: Nystatin POWDER 15 GM JAR TP (20:48)
[2019-02-05] MEDS: traMADol 50 MG TAB PO (22:47)
[2019-02-05 23:43] VITALS: BP 108/65; PULSE 74; RESP 17; TEMP 36.1; O2SAT 94
[2019-02-06] MEDS: MORPHine 2 MG/ML SYR IVP ×2 (03:55→16:12)
[2019-02-06] MEDS: Normal Saline Flush 10 ML SYR IVP ×2 (03:56→05:49)
[2019-02-06] MEDS: ACETAMINOPHEN 1,000 MG/100 ML BTL 400 MG IVPB ×2 (05:49→14:18)
[2019-02-06 07:22] LABS: INR 1.2 (0.9-1.1); Prothrombin Time 12.1 sec (9.3-11.0)
[2019-02-06 07:24] VITALS: BP 115/67; PULSE 82; RESP 19; TEMP 36.4; O2SAT 97
[2019-02-06] MEDS: predniSONE 5 MG TAB PO (07:29)
[2019-02-06] MEDS: levETIRAcetam 500 MG TAB 1500 MG PO ×2 (07:29→20:43)
[2019-02-06] MEDS: traMADol 50 MG TAB 25 MG PO (07:29)
[2019-02-06] MEDS: Furosemide 20 MG TAB PO ×2 (07:30→20:43)
[2019-02-06] MEDS: Magnesium Oxide 400 MG TAB PO ×3 (07:30→20:42)
[2019-02-06] MEDS: Docusate Sodium 100 MG CAP PO ×2 (07:30→20:41)
--- NOTE | 2019-02-06 07:50 | PHARADMIT ---
Addendum entered by Brab Cronin 02/09/19 15:16: Morphine CADD increased to 2mg/hr w/ 1 mg bolus Q15 minutes extra lidocaine patch added for pt's knee no VS or labs transfer to H&R tomorrow Addendum entered by Bert Blackwell III 02/08/19 12:09: Morphine CADD increased to 1.5mg/hr No VS. MD hoping to transfer patient to [facility]R on Hospice tomorrow. Addendum entered by Bert Blackwell III 02/07/19 14:08: Pharmacy Note Subjective Patient placed on Morphine CADD SC infusion yesterday for comfort. Objective Pain:01/06 No VS No Labs Assessment Continue home med regimen. Warfarin continues with no daily INR's Plan Plan is for patient to go on Hospice and transfer to [facility] H&R on Saturday. Original Note: Admission Pharmacy Clinical Review C SPINE LESIONS, BRAIN LESIONS, FALL, L-KNEE PAIN Code Status DNR/DNI Current Weight Wgt-62.6 kg Renally Cleared and Narrow Therapeutic Index Meds CrCl~77.26 mL/min Meds-OK QTc Value / Action Taken QTc-461 (Lasix CR, Celexa-KR, (NE-Effexor Prograf, Tramadol) BP Control, Fever BP- 108/65 Tmax-36.1C Electrolytes reviewed Na-138 K+3.9 DVT Prophylaxis Warfarin Opiate Usage / Scheduled Bowel Regimen Ordered Yes Yes Plt/SCr for Heparin / Enoxaparin Plts-269 SCr0.68 INR for Warfarin INR-1.2 H/H stable, WBC/Bands H&H- 12.4/37.7 WBC- 5.08 Antibiotic appropriateness none Cultures and Sensitivities none Surgical ABX d/c within 24 hr NA DM control / Insulin Dosing BG-94 Heart Failure (Check EF%) (SHEILA's, B-Block, Diuretics) Lasix, IV to PO Switch No Home Meds Reviewed Yes Home Meds Not Ordered Fosamax Comments [employer]Own Mycophenolate, Awaiting to be brought in Terbinafine Top, D-mannose
[2019-02-06 08:29] VITALS: RESP 16
--- NOTE | 2019-02-06 08:54 | PT.INIE ---
Date of service: 02/06/19 Time of Service: 08:18 PT Notes Inpatient Physical Therapy Evaluation Date: 02/06/2019 Referring Doctor: Renée Dumont MD PT Orders: PT CONSULT: Eval/treat. Limited ability Precautions: Fall. Standard. Seizure-prone. Cervical cervical collar on at all times. Activity as tolerated. Patient Profile/Admitting Diagnosis: Patient is a 53-year-old female with past medical history significant for status post renal transplant x 3, on immunosuppressives, and with neurogenic bladder who presented to the ED via EMS on 02/05/2019 due to a mechanical fall sustained while attempting to get up from bed which resulted to hitting the back of her head and her left knee. Patient was diagnosed nondisplaced C5 vertebral facet fracture, left knee pain, ambulatory dysfunction, and renal insufficiency, hypercoagulable state, lytic bone lesions on x-ray, and cerebellar lesion. PMHX: Medical History Chronic anticoagulation Chronic kidney disease Convulsions Hyperparathyroidism Neurogenic bladder Osteoporosis Peripheral neuropathy Protein S deficiency TBI (traumatic brain injury) Surgical History Colonoscopy - MAC (02/11/15) Fistula creation Renal Transplant Social History/Home Situation: Patient lives with a caregiver in a fci with a ramp to enter in [place], [place]. She is independent with all mobility ADLs using a 4 wheeled walker. Current Functional Limitations: Need for assistance in all transfer and ambulation task performance using FWW Equipment Owned/DME: FWW Subjective: Patient is agreeable to a PT consult today. She reports pain on bilateral knees with the left knee being more painful than the right. Patient is also teary-eyed at this morning's evaluation due to pain on her forehead and her left knee exacerbated by mobility performance. Objective: General Observation: Patient seen resting in bed. Noriega catheter in place. Left knee mildly swollen. Thoracic kyphosis noted. Genu varum observed in standing with bilateral feet eversion/pronation. Mental Status: Alert and oriented x4 Pain: Moderate pain on bilateral knee left knee more affected than the right ROM: Right Lower Extremity: Hip flexion WFL. Hip abduction WFL. Knee flexion WFL. Ankle dorsiflexion 0-5. Ankle plantarflexion WFL. Left Lower Extremity: Hip flexion WFL. Hip abduction WFL. Knee flexion WFL. Ankle dorsiflexion 0-5. Ankle plantarflexion WFL. Strength: Right Lower Extremity: Hip flexors 3-/5. Hip abductors 3-/5. Knee flexors 3-/5. Knee extensors 3-/5. Ankle dorsiflexors 3-/5. Ankle plantarflexors 3-/5. Left Lower Extremity: Hip flexors 3-/5. Hip abductors 3-/5. Knee flexors 3-/5. Knee extensors 3-/5. Ankle dorsiflexors 3-/5. Ankle plantarflexors 3-/5. Sensation: Intact as to pain and pressure on bilateral lower extremities. Bed Mobility/Transfers: Rolling minimal assist Supine to sit minimal assist to bilateral LE due to pain complaints Sit to supine minimal assist to bilateral LE due to pain complaints Sit to stand minimal assist with bilateral UEs support and using FWW Stand to sit minimal assist with bilateral UEs support and using FWW Bed to chair minimal assist with bilateral UEs support and using FWW Chair to bed minimal assist with bilateral UEs support and using FWW Gait: Patient was able to tolerate level surface ambulation of 8 steps plus one side step was to step back to [facility] minimal assist provided using FWW with FWB. Bilateral feet eversion with genu vara observed. Thoracic scoliosis noted. increased trunk flexion seen during gait activity. Decreased gait velocity with decreased bilateral knee flexion. Balance: Static Sitting: Good Dynamic Sitting: Fair Static Standing: Fair Dynamic Standing: Fair Special Tests: Mobility Limitations Standardized Measure [facility]-PAC 6 clicks Basic Mobility Inpatient Short Form: Raw Score: 17 CMS Score: 50% deficit Informed Consent/Education: Patient instructed in purpose of PT consult and plan of care. Assessment: 53-year-old female who is status post renal transplant x3 on immunosuppressives and with neurogenic bladder now with diagnosis of non-displaced C5 vertebral facet fracture, left knee pain, ambulatory dysfunction, and renal insufficiency, hypercoagulable state, lytic bone lesions on x-ray, and cerebellar lesion. Prognosis for this patient is poor to fair considering co-morbidities. Per case management notes patient may go home on hospice care once medically cleared to do so from this hospital. If pain is controlled patient may be able to achieve established goals as listed below. Patient presents with clinical signs and symptoms consistent with current/admitting diagnoses that have resulted to mobility limitations, gait instability, generalized weakness, and impairment of motor control as demonstrated by the following impairment level findings: 1. Decreased strength to B LE major muscle groups 2. Impaired sitting/standing balance 3. Impaired activity tolerance 4. Limitation of joint range of motion in bilateral ankles 5. Pain to bilateral knees Impairments are contributing to the following functional limitations: 1. Dependent bed mobility skills 2. Increased dependence with transfers 3. Inability to safely ambulate without assistive device and physical assistance 4. Increase completion time for mobility ADL performance 5. Increased fall risk 6. Inability to negotiate steps alone safely Patient is assessed as a 34103 moderate complexity complexity based on the following: History: Patient was diagnosed non-displaced C5 vertebral facet fracture, left knee pain, ambulatory dysfunction, and renal insufficiency, hypercoagulable state, lytic bone lesions on x-ray, and cerebellar lesion. Examination: Demonstrable impairment in strength, balance, and range of motion with underlying impairments and functional limitations as documented above Presentation:Evolving Decision Makin moderate complexity Goals: Goals X1 week 1. Supine-Sit independent 2. Sit-Supine independent 3. Sit-Stand independent 4. Stand-Sit independent 5. Bed-Chair independent 6. Chair-Bed independent 7. Independent gait on level surface with use of least restrictive device for at least 50 feet without report of pain nor dyspnea 8. Good static and dynamic standing balance/tolerance Plan of Care/Treatment Plan: 1-2x/day, 7 days/week x 1 week. Plan of care has been reviewed with the BOILER COVERER HELPER providing the service under Physical Therapy direction. Initiate Physical Therapy intervention for strengthening, bed mobility, transfers, gait, stairs, balance training, use of assistive device. DISCHARGE RECOMMENDATIONS: Patient will benefit from longterm facility placement in order to progress mobility level, strength, and balance in preparation for a safe discharge to home. TREATMENT CODE/TIME: 08944 x 15minutes beginning at 8:18 AM. Thank you very much for this referral. Scarlet Jade PT, DPT, CLT [facility]
[2019-02-06] MEDS: Venlafaxine 37.5 MG CAPCR 75 MG PO (08:59)
[2019-02-06] MEDS: Tacrolimus 0.5 MG CAP 2 MG PO (08:59)
[2019-02-06] MEDS: Multivitamin w/Minerals TAB 1 TAB PO (08:59)
[2019-02-06] MEDS: Citalopram 20 MG TAB PO (09:00)
[2019-02-06] MEDS: Nystatin POWDER 15 GM JAR TP ×2 (09:03→20:48)
--- NOTE | 2019-02-06 09:13 | OT.INIE ---
Occupational Therapy Notes Inpatient Occupational Therapy Evaluation Date: 02/06/19 Referring Doctor: Renée Dumont MD OT Orders: Eval and Treat Precautions: Fall, Decreased safety awareness, Standard PATIENT PROFILE/ADMITTING DIAGNOSIS: Pt is a 53 year old female admitted through the ER for mechanical fall sustained while getting up from bed which resulted to hitting the back of her head and her left knee which has increased pain in her (B) LE. Patient was diagnosed nondisplaced C5 vertebral facet fracture, left knee pain, ambulatory dysfunction, and renal insufficiency, hypercoagulable state, lytic bone lesions on x-ray, and cerebellar lesion per pt's EMR. Pt is s/p renal transplant x3 and has a neurogenic bladder. Past Medical History: Chronic anticoagulation Chronic kidney disease Convulsions Hyperparathyroidism Neurogenic bladder Osteoporosis Peripheral neuropathy Protein S deficiency TBI (traumatic brain injury) Surgical History Colonoscopy - MAC (02/11/15) Fistula creation Renal Transplant Social History/Home Situation: Pt states that she lives in a assisted setting in [place], [place]. She reports that she is at this time and since she got back from [facility] been max (A) for all ADLs/IADLs and later states that she requires (A) with putting on (B) socks, pulling up her pants, and helping her whenever she needs it for food. She reports that she is unable to cut her own food, and that her sister came in last night to feed her. She uses a shower chair in the shower and states that she uses a FWW for functional mobility. Equipment owned/DME: FWW, shower chair SUBJECTIVE: Pt was sitting in bed when OT arrived. She was agreeable to OT session. She reports that she went to [facility] after last hospitalization. She notes that she is back to the assisted in [place] but has been limited in her functional mobility due to (B) leg pain. OBJECTIVE: General Observation: Noriega, IV (R) UEx2, pleasant, emotional due to leg cramping, cervical collar Mental Status: A&Ox3 Pain: c/o pain in (B) LE with cramping and is tearful. This is pts baseline from previous hospitalization. ROM: RUE Shoulder flexion limited to 135*, elbow WNL, hand and digits WNL L UE Shoulder flexion WNL, elbow WNL, hand and digits WNL Pt has a significant vistula on (L) UE STRENGTH: RUE Shoulder flexion 3-/5, bicep 3-/5, tricep 2+/5, swatch clerk is very weak LUE Shoulder flexion 3-/5, bicep 3-/5, tricep 3-/5, swatch clerk is very weak FUNCTIONAL MOBILITY/ADLS: Supine-sit Min (A) Sit to supine Min (A) Sit to stand Min (A) x2 Stand to sit Min (A) x2 Bed-chair Min (A) x2 BATHING Sitting in chair with max (A) set up, (I) face, max (A) hair and pt denies (B) UE, abdomen and back at this time. DRESSING Pt is max (A) don and doff (B) LE socks. EATING Sitting in chair with max (A) cutting food, pt was able to (I) bring food to mouth with min vc. Pt requires use of straw for liquids as her neck brace is limiting her ability to drink from cups with min vc provided throughout. [place] pincer grasp and grasp and release of digits. BALANCE: Static sitting Good Dynamic Sitting Good Static standing Fair-Good Dynamic standing Fair-Good SPECIAL TESTS: Daily Activity Limitations Standardized Measure [facility] AM -PAC ?6 clicks? Daily Activity Inpatient Short Form: Raw score: 16 Standardized score: 35.96 CMS score: 53.32% INFORMED CONSENT/EDUCATION: Pt instructed in purpose of OT Consult and plan of care. ASSESSMENT: Patient is a 53-year-old female referred to occupational therapy services with diagnosis of mechanical fall sustained while attempting to get up from bed which resulted to hitting the back of her head and her left knee which has increased pain in her (B) LE. Patient was dx with nondisplaced C5 vertebral facet fracture, left knee pain, ambulatory dysfunction, and renal insufficiency, hypercoagulable state, lytic bone lesions on x-ray, and cerebellar lesion. Patient presents with clinical signs and symptoms consistent with dx, as demonstrated by the following impairment level findings: decreased (B) UE strength, decreased (B) UE AROM, decreased functional activity tolerance, pain in UE/LE, decreased performance in ADLS/IADLs. Impairments are contributing to the following functional limitations: Deficit in LE bathing and dressing, pain in UE and c/o cramping in LE limiting LE (I), decreased functional ROM limiting (I) in ADL/IADL routines, decreased functional functional activity tolerance. AMPAC score 16, CMS score 53.32% Patient is assessed as a Moderate 62409 complexity based on the following: History: See Above Examination: See Above Presentation: Evolving Decision Making: AMPAC score 16, CMS score 53.32% GOALS 1. Dressing Sitting in chair mod (A) don and doffing (B) socks and pants, (I) donning and doffing UE 2. Bathing Sitting in chair mod (A) LE, (I) UE 4. Toileting on commode mod (A) 5. Eating sitting in chair (I) with food to mouth and max (A) cutting food 6. Grooming sitting in chair (I) teeth and hair PLAN OF CARE/TREATMENT PLAN: 1x/day, 5 days/ week x 1week Initiate Occupational Therapy Services for bathing, dressing, grooming, toileting, eating, transfer training. DISCHARGE RECOMMENDATIONS Pt to return to assisted when medically cleared per MD. TREATMENT TIME/MINUTES/CODES 80013, [id number], 38 minutes (08:15) Nichole Garrett OTR/L [facility]
--- NOTE | 2019-02-06 09:48 | PCNE_ITS ---
Date of service: 02/06/19 Time of Service: 08:48 History of Present Illness History of Present Illness Chief Complaint: Neck pain with multiple lytic lesions found on imaging Narrative: Tacos is known to me from past hospitalizations and intermediate and home visits. Briefly, she is a 53 yo woman with cognitive changes, h/o multiple kidney transplants, neurogenic bladder, clotting disorder and CHF presented with multiple spinal lytic lesions requiring IV morphine gtt to get her pain under control. I have had many discussions about quality of life with pt and her sisters/gaurdian. Previous to today her sister obtained a DNR/DNI designation from the courts. Consults Consult date: 02/06/19 Requesting physician: Renée Dumont Assessment and Plan Assessment and plan (1) Cerebellar lesion: Status: Acute (2) Lytic bone lesions on xray: Status: Acute Assessment and plan: Discussion with Nicol ESTRADA at [phone]. I recommended Hospice. COnsult ordered by Dr Dumont I will continue to see Tacos. (3) C5 vertebral fracture: Status: Acute (4) Acute on chronic diastolic CHF (congestive heart failure): Status: Acute (5) History of kidney transplant: Status: Acute Review of Systems Review of Systems Narrative: Tacos states her pain is under much better control. She is on her ipad and is engrossed with what she is doing. She stated a few times: i feel better. I feel better. [facility] Social History Smoking/Tobacco Use Status: Never Alcohol Intake: never Drug use: Never Substance use type: does not use Do you feel safe at home: Yes Do you feel safe in your relationship?: Yes Additional Social history: Lives in [facility] in [place]. Has VNA care there as well. Exam Narrative Exam Narrative: Sitting in bed playing on her ipad. Resiratory - good air movement; Cardiac - murmur; abdomen- tender, but no rebound tenderness Patient Name: TACOS DE JESUS #: [id number]: ER Ordering Provider: Michelet Asencio DOAccount #: [id number]: REG ER Primary Care Provider: Nader Dobson M.D.Date of Exam: 02/05/19Sex: F : 1965Age: 53 Exam(s) a CT:CT head & cervical spine wo EXAM: CT HEAD CERVICAL SPINE WO CLINICAL HISTORY: fall, hit head, on coumadin, OLD C1 fx. TECHNIQUE: COMPARISON: HEAD WITHOUT CONTRAST from 07/04/2016 FINDINGS: CT examination of the cervical spine was performed utilizing multi slice acquisition and multiplanar reconstruction. There are innumerable lytic lesions of varying size of all the bones of the cervical spine as well as portions of this skull base including the occipital condyles with marked bony loss at multiple sites. There is nondisplaced facet fracture of C5 on the right. No additional acute fracture identified. No cervical mass or adenopathy. Visualized lung apices are clear. Presumed old right occipital infarct noted. No evidence of acute hemorrhage or midline shift. Possible area of decreased attenuation in left cerebellar hemisphere, question old infarct, intracranial mass not excluded. Correlation with brain MRI recommended including post contrast imaging. IMPRESSION: Innumerable lytic lesions of the cervical spine, consider multiple myeloma. Nondisplaced right C5 facet fracture which should be stable. Old left occipital infarct. No gross acute hemorrhage. Question left cerebellar lesion, correlation with MRI recommended including postcontrast imaging. Results Last Vital Signs Temp 97.5 F L 02/06/19 07:24 Pulse 82 02/06/19 07:24 Resp 19 02/06/19 07:24 BP 115/67 02/06/19 07:24 Pulse Ox 97 02/06/19 07:24 Labs Result diagrams: 02/05/19 07:55 02/05/19 07:55 Labs: Laboratory Results - last 24 hr 02/06/19 06:40 PT 12.1 H INR 1.2 H
--- NOTE | 2019-02-06 12:52 | INITIAL_ITS ---
- If Service Date Differs Date of service: 02/06/19 Time of Service: 12:52 Care Management Initial Assess REASON FOR HOSPITALIZATION:: Cervical spine fracture, Lytic bone lesions on xray, Fall, Cerebellar lesion PAST MEDICAL HISTORY/PAST SURGICAL HISTORY:: Medical: chronic anticoagulation, CKD, convulsions, hyperparathyroidism, neurogenic bladder, osteoporosis, peripheral neuropathy, protein S deficiency, TBI. Surgical: colonoscopy, fistula creation, renal transplant. PREVIOUS FUNCTIONAL STATUS/SOCIAL/FAMILY SUPPORTS:: Darlene is a 53 year old woman who lives at [facility] in [place]. She has lived there for many years, and states that they take good care of her. Her sister, Nicol Gruber is her legal guardian, and is very supportive of Darlene. She receives help with her ADL's at the group home. CURRENT FUNCTIONAL STATUS:: Darlene was sitting up in her chair when CM met with her. Her sister, Nicol, who is also her legal guardian, was at her side. Darlene reported that she was feeling ok and that her pain is under control. She stated that she would like to go for a ride in her wheelchair downstairs to the gift shop, if possible. CM asked the MD and PT, who reported that she can go for a ri de, as long as she keeps her neck brace on. Dr. Chamorro met with Darlene earlier in the day, as a palliative consult, and she reported that Darlene is considering hopice for RECREATION THERAPY TEACHER. CM discussed having a hospice consult with Darlene and Nicol, which will happen this afternoon. Nicol also reported that they are considering [facility] or another facility following this visit. CM will contact admissions at [facility] to coordinate discharge planning. CM will continue to follow. ADVANCE DIRECTIVES:: Nicol, Darlene's sister, is her court appointed legal guardian. Paperwork is on file. Has patient been provided with information about the portal?: No Did the patient sign up for the portal?: No CODE STATUS:: DNR/DNI INSURANCE COVERAGE / FINANCIAL ISSUES:: MCR/GRIFFIN CURRENT HOME/COMMUNITY SERVICES/EQUIPMENT:: Darlene currently lives at a [facility] group home with private caregivers who provide help with ADL's. She has a FWW, wheelchair and raised toilet seat. PRIMARY CARE PHYSICIAN:: Nader Dobson POTENTIAL DISCHARGE NEEDS:: Referral SNF placement for hospice, potential application for extermination inspector medicaid, evaluations for further needs. PATIENT/FAMILY EDUCATION NEEDS:: Review of community based supports, discharge plan, expectations for hospice care. ANTICIPATED BARRIERS TO DISCHARGE:: adjunct faculty for medical terminology medicaid application may be necessary to SNF placement if on hospice. TRANSPORTATION:: Anticipate w/c van to SNF. PLAN:: Anticipate Darlene will go to a SNF for short rehab stay vs hospice. Darlene has a hospice consult this afternoon which will help determine course of discharge planning. Nicol and Miley, Darlene's sisters, will both be present for this meeting. Anticipate she will transport via w/c van. CM will provide guidance regarding extermination inspector medicaid application. CM will continue to follow and support discharge planning and disposition.
[2019-02-06] MEDS: Lidocaine 5% Patch 1 PATCH TP ×2 (14:17)
[2019-02-06 15:05] VITALS: BP 132/72; PULSE 80; RESP 18; TEMP 36.9; O2SAT 96
[2019-02-06] MEDS: Bisacodyl 5 MG TABEC PO (16:11)
[2019-02-06 16:26] VITALS: RESP 16
--- NOTE | 2019-02-06 17:55 | W.PM.PROGNOT ---
Date of Service Date of service: 02/06/19 Time of Service: 17:55 Assessment and Plan Assessment and plan (1) C5 vertebral fracture: Status: Acute Assessment and plan: stabilized in a cervical collar - when on hospice, comfort should be the goal, so this could likely be removed - will defer to hospice. PT/OT consulted. Morphine CADD pump. (2) Left knee pain: Status: Acute Assessment and plan: No obvious fx on XR. Trial lidoderm patch. Morphine CADD pump for pain starting tonight. (3) Ambulatory dysfunction: Status: Acute Assessment and plan: PT/OT consults (4) Adrenal insufficiency: Status: Acute Assessment and plan: Chronic. Monitor for signs of adrenal crisis. Continue home prednisone (5) History of kidney transplant: Status: Acute Assessment and plan: Continue immunosupressive therapy for now. (6) Hypercoagulable state, primary: Status: Acute Assessment and plan: Continue coumadin. Patient and her sister did express that they are not interested in any more blood draws. Coumadin to continue until enrollment in hospice. (7) Lytic bone lesions on xray: Status: Acute Assessment and plan: Multiple myeloma vs osteodystrophy of renal disease. Darlene and Nicol are not interested in investigating this further and would like to focus on comfort. (8) Cerebellar lesion: Status: Acute Assessment and plan: As above (9) Discharge planning issues: Status: Acute Assessment and plan: DNR/DNI [facility] with enrollment into hospice (10) DVT prophylaxis: Status: Acute Assessment and plan: On coumadin Subjective Subjective Interval history since last seen: Ms Farah states she is not very comfortable. Specifically, she refers to her neck pain. Denies dizziness, chest pain, shortness of breath, nausea. Complains of constipatioin. Met with hospice and is planned to be discharged [facility] with hospice enrollment. Exam Narrative Exam Narrative: General: Very pleasant, uncomfortable middle-aged female, wearing a C-collar HEENT: EOMI, MMM Cardiovascular: RRR, + AI Lungs: CTAB Gastrointestinal: abdomen is soft, nontender Genitourinary: has a suprapubic catheter Extremities: +1 edema BLE's, no c/c. Objective Objective Clinical Data: Abnormal lab results 02/06/19 Range/Units 06:40 PT 12.1 H (9.3-11.0) sec INR 1.2 H (0.9-1.1) Vital Signs Temperature 36.9 C 02/06/19 15:05 Temperature Source Tympanic 02/06/19 15:05 Pulse 80 02/06/19 15:05 Pulse Rhythm Regular 02/06/19 09:07 Respiratory Rate 16 02/06/19 16:26 Respiratory Effort 02/06/19 09:07 Respiratory Depth Normal 02/06/19 09:07 Respiratory Pattern Normal 02/06/19 09:07 Blood Pressure 132/72 02/06/19 15:05 Blood Pressure Position Supine 02/05/19 07:36 Pulse Oximetry 96 02/06/19 15:05 Oxygen Delivery Method Room Air 02/06/19 15:05 Oxygen Flow Rate 0 02/06/19 15:05 Pain Level 3 02/06/19 16:26 Intake & Output 02/05/19 02/06/19 02/06/19 23:59 11:59 23:59 Intake Total 540 / 540 220 / 770 550 / 770 Output Total 1100 / 1100 Balance -560 / -560 220 / 770 550 / 770 Weight 62.142 kg 62.6 kg Intake: IV 300 / 300 100 / 200 100 / 200 Oral 240 / 240 120 / 570 450 / 570 Output: Urine 1100 / 1100 Other: Urine Color Yellow Urine Appearance Clear Clear Stool Size Moderate Stool Characteristics Hard Laboratory Results WBC 5.08 k/cumm (4.4-10.8) 02/05/19 07:55 RBC 4.51 m/cumm (4.00-5.20) 02/05/19 07:55 Hgb 12.4 g/dL (12.0-15.5) 02/05/19 07:55 Hct 37.7 % (36.0-46.0) 02/05/19 07:55 MCV 83.6 fL (80-95) 02/05/19 07:55 MCH 27.5 pg (27.0-33.0) 02/05/19 07:55 MCHC 32.9 g/dL (32.0-36.0) 02/05/19 07:55 RDW 15.2 % (11.7-14.6) H 02/05/19 07:55 Plt Count 269 x1000/uL (130-400) 02/05/19 07:55 MPV 8.7 fL (8.0-11.0) 02/05/19 07:55 Immature Gran % 0.0 02/05/19 07:55 Neutrophils % 63.0 02/05/19 07:55 Lymphocytes % 23.2 02/05/19 07:55 Monocytes % 8.5 02/05/19 07:55 Eosinophils % 4.7 02/05/19 07:55 Basophils % 0.6 02/05/19 07:55 Absolute Neutrophils 3.20 k/cumm (1.2-6.7) 02/05/19 07:55 Absolute Lymphocytes 1.18 k/cumm (1.2-3.4) L 02/05/19 07:55 Absolute Monocytes 0.43 k/cumm (0.11-0.7) 02/05/19 07:55 Absolute Eosinophils 0.24 k/cumm (0.0-0.7) 02/05/19 07:55 Absolute Basophils 0.03 k/cumm (0.0-0.2) 02/05/19 07:55 PT 12.1 sec (9.3-11.0) H 02/06/19 06:40 INR 1.2 (0.9-1.1) H 02/06/19 06:40 APTT 31.0 sec (21.0-31.4) 02/05/19 07:55 Sodium 138 mmol/L (136-145) 02/05/19 07:55 Potassium 3.9 mmol/L (3.5-5.1) 02/05/19 07:55 Chloride 101 mmol/L (98-107) 02/05/19 07:55 Carbon Dioxide 30.4 mmol/L (21.0-32.0) 02/05/19 07:55 Anion Gap 6.6 mmol/L (3-11) 02/05/19 07:55 BUN 13 mg/dL (7-18) 02/05/19 07:55 Creatinine 0.68 mg/dL (0.55-1.02) 02/05/19 07:55 Estimated GFR/1.73 m2 >= 60.00 (mL/min/1.73m2) 02/05/19 07:55 Glucose 94 mg/dL (70-100) 02/05/19 07:55 Calcium 8.7 mg/dL (8.5-10.1) 02/05/19 07:55
[2019-02-06] MEDS: Tacrolimus 0.5 MG CAP 1 MG PO (20:41)
[2019-02-06] MEDS: Milk of Magnesia 30 ML CUP PO (20:44)
[2019-02-06] MEDS: Warfarin 5 MG TAB PO (20:44)
[2019-02-06] MEDS: traMADol 50 MG TAB PO (23:14)
[2019-02-07] MEDS: Patch Removal 1 EACH TP ×2 (00:30)
--- NOTE | 2019-02-07 09:33 | PT.INTREAT ---
Date of service: 02/07/19 Time of Service: 09:33 PT Notes Inpatient Physical Therapy Treatment Note [facility] Date: 02/07/19 PRECAUTIONS: Fall SUBJECTIVE: Darlene states that she is pretty comfortable in her chair. She states that she would rather not get up at this time. She does state that she walked from bed to chair this morning, and reports that it went well. OBJECTIVE: PAIN: Patient complains of left knee pain with ther ex BED MOBILITY/TRANSFERS/GAIT: Refused THEREX: Patient completed a lower extremity and upper extremity strengthening program, in a seated position, as per flow sheet. Patient requires assist of left lower extremity with hip abduction due to pain, and demonstrates limited ability to perform exercises with left upper extremity due to weakness. ASSESSMENT: Patient refused to bed mobility, transfers, and gait this morning. She was able to tolerate the addition of a ther ex program, requiring assist with left lower extremity exercises, and demonstrating limited ability to perform exercises with left upper extremity. Patient would benefit from participation in gait and transfer training as well as continued strengthening for improved mobility and activity tolerance. PLAN: Continue with PTs POC TREATMENT CODE/TIME: 15 minutes; [id number]
[2019-02-07] MEDS: levETIRAcetam 500 MG TAB 1500 MG PO ×2 (09:52→20:29)
[2019-02-07] MEDS: Citalopram 20 MG TAB PO (09:52)
[2019-02-07] MEDS: Multivitamin w/Minerals TAB 1 TAB PO (09:52)
[2019-02-07] MEDS: Venlafaxine 37.5 MG CAPCR 75 MG PO (09:53)
[2019-02-07] MEDS: Tacrolimus 0.5 MG CAP 2 MG PO (09:53)
[2019-02-07] MEDS: Furosemide 20 MG TAB PO ×2 (09:53→20:30)
[2019-02-07] MEDS: Docusate Sodium 100 MG CAP PO ×2 (09:53→20:30)
[2019-02-07] MEDS: Magnesium Oxide 400 MG TAB PO ×3 (09:53→20:29)
[2019-02-07] MEDS: Nystatin POWDER 15 GM JAR TP ×2 (09:55→20:29)
[2019-02-07] MEDS: Lidocaine 5% Patch 1 PATCH TP ×2 (15:02)
--- NOTE | 2019-02-07 15:31 | W.PM.PROGNOT ---
Date of Service Date of service: 02/07/19 Time of Service: 15:31 Assessment and Plan Assessment and plan (1) C5 vertebral fracture: Start date: 02/07/19 Start time: 15:33 Status: Acute Assessment and plan: Pain improving. Stabilized in a cervical collar - when on hospice, comfort should be the goal, so this could likely be removed - will defer to hospice. PT/OT consulted. Morphine CADD pump. (2) Left knee pain: Start date: 02/07/19 Start time: 15:33 Status: Acute Assessment and plan: Pain controlled at this time. (3) Ambulatory dysfunction: Start date: 02/07/19 Start time: 15:34 Status: Acute Assessment and plan: PT/OT consults (4) Adrenal insufficiency: Start date: 02/07/19 Start time: 15:34 Status: Acute Assessment and plan: Chronic. Monitor for signs of adrenal crisis. Continue home prednisone (5) History of kidney transplant: Start date: 02/07/19 Start time: 15:34 Status: Acute Assessment and plan: Continue immunosupressive therapy for now. (6) Hypercoagulable state, primary: Start date: 02/07/19 Start time: 15:34 Status: Acute Assessment and plan: Continue coumadin. Patient and sister would like to continue coumadin but do not wish to have labs drawn as they want her comfortable on hospice. She is being transferred to rehab with hospice on Saturday. (7) Lytic bone lesions on xray: Start date: 02/07/19 Start time: 15:35 Status: Acute Assessment and plan: Multiple myeloma vs osteodystrophy of renal disease. Darlene and Nicol are not interested in investigating this further and would like to focus on comfort. (8) Cerebellar lesion: Start date: 02/07/19 Start time: 15:35 Status: Acute Assessment and plan: As above (9) Discharge planning issues: Start date: 02/07/19 Start time: 15:35 Status: Acute Assessment and plan: DNR/DNI Plan is to [facility] with enrollment into hospice (10) DVT prophylaxis: Start date: 02/07/19 Start time: 15:35 Status: Acute Assessment and plan: On coumadin Subjective Subjective Patient reports: no new complaints Interval history since last seen: Pain is controlled. No lab draws per family and patient request however will continue to give coumadin. Patient going to rehab with hospice on Saturday. CAD in place for pain control. Exam Narrative Exam Narrative: General: Very pleasant, comfortable middle-aged female, wearing a C-collar sitting up in chair playing on ipad HEENT: EOMI, MMM Cardiovascular: RRR, + AI Lungs: CTAB Gastrointestinal: abdomen is soft, nontender Genitourinary: has a suprapubic catheter Extremities: +1 edema BLE's, no c/c. Objective Objective Clinical Data: Vital Signs Temperature 36.9 C 02/06/19 15:05 Temperature Source Tympanic 02/06/19 15:05 Pulse 80 02/06/19 15:05 Pulse Rhythm Regular 02/06/19 09:07 Respiratory Rate 16 02/06/19 16:26 Respiratory Effort Non-Labored 02/07/19 08:11 Respiratory Depth Normal 02/07/19 08:11 Respiratory Pattern Normal 02/07/19 08:11 Blood Pressure 132/72 02/06/19 15:05 Blood Pressure Position Supine 02/05/19 07:36 Pulse Oximetry 96 02/06/19 15:05 Oxygen Delivery Method Room Air 02/06/19 18:47 Oxygen Flow Rate 0 02/06/19 18:47 Pain Level 9 02/07/19 08:26 Intake & Output 02/06/19 02/07/19 02/07/19 23:59 11:59 23:59 Intake Total 550 / 770 370 / 610 240 / 610 Output Total 600 / 600 550 / 550 Balance -50 / 170 -180 / 60 240 / 60 Intake: IV 100 / 200 Oral 450 / 570 370 / 610 240 / 610 Output: Urine 600 / 600 550 / 550 Other: Urine Color Yellow Yellow Light Mirella Urine Appearance Clear Clear Urine Odor Normal Comment Pt was up to urinate 100 mL into comode as well as on the chair and the floor on the way to the comode. Pt was crying in pain during this. Morphine bolus given. Voiding Methods Bedside Commode Incontinent Laboratory Results WBC 5.08 k/cumm (4.4-10.8) 02/05/19 07:55 RBC 4.51 m/cumm (4.00-5.20) 02/05/19 07:55 Hgb 12.4 g/dL (12.0-15.5) 02/05/19 07:55 Hct 37.7 % (36.0-46.0) 02/05/19 07:55 MCV 83.6 fL (80-95) 02/05/19 07:55 MCH 27.5 pg (27.0-33.0) 02/05/19 07:55 MCHC 32.9 g/dL (32.0-36.0) 02/05/19 07:55 RDW 15.2 % (11.7-14.6) H 02/05/19 07:55 Plt Count 269 x1000/uL (130-400) 02/05/19 07:55 MPV 8.7 fL (8.0-11.0) 02/05/19 07:55 Immature Gran % 0.0 02/05/19 07:55 Neutrophils % 63.0 02/05/19 07:55 Lymphocytes % 23.2 02/05/19 07:55 Monocytes % 8.5 02/05/19 07:55 Eosinophils % 4.7 02/05/19 07:55 Basophils % 0.6 02/05/19 07:55 Absolute Neutrophils 3.20 k/cumm (1.2-6.7) 02/05/19 07:55 Absolute Lymphocytes 1.18 k/cumm (1.2-3.4) L 02/05/19 07:55 Absolute Monocytes 0.43 k/cumm (0.11-0.7) 02/05/19 07:55 Absolute Eosinophils 0.24 k/cumm (0.0-0.7) 02/05/19 07:55 Absolute Basophils 0.03 k/cumm (0.0-0.2) 02/05/19 07:55 PT 12.1 sec (9.3-11.0) H 02/06/19 06:40 INR 1.2 (0.9-1.1) H 02/06/19 06:40 APTT 31.0 sec (21.0-31.4) 02/05/19 07:55 Sodium 138 mmol/L (136-145) 02/05/19 07:55 Potassium 3.9 mmol/L (3.5-5.1) 02/05/19 07:55 Chloride 101 mmol/L (98-107) 02/05/19 07:55 Carbon Dioxide 30.4 mmol/L (21.0-32.0) 02/05/19 07:55 Anion Gap 6.6 mmol/L (3-11) 02/05/19 07:55 BUN 13 mg/dL (7-18) 02/05/19 07:55 Creatinine 0.68 mg/dL (0.55-1.02) 02/05/19 07:55 Estimated GFR/1.73 m2 >= 60.00 (mL/min/1.73m2) 02/05/19 07:55 Glucose 94 mg/dL (70-100) 02/05/19 07:55 Calcium 8.7 mg/dL (8.5-10.1) 02/05/19 07:55
--- NOTE | 2019-02-07 19:47 | PDOC.CMPRO ---
- If Service Date Differs Date of service: 02/07/19 Time of Service: 19:47 Care Management Progress Note S/O; Darlene was sitting up in bed using her tablet and visiting with her sister when CM met with her. She was pleasant and cooperative. Darlene stated that her pain is now well controlled; earlier in the day she was still having significant discomfort. Darlene stated that she hopes to go to [facility] early next week. A; Darlene is a 53 year old woman admitted on 02/06/19 with a C5 cervical fracture. P: Anticipate Darlene will go to a SNF for short rehab stay vs hospice. Anticipate she will transport via w/c van. CM will provide guidance regarding [facility] medicaid application. CM will continue to follow and support discharge planning and disposition.
[2019-02-07] MEDS: Tacrolimus 0.5 MG CAP 1 MG PO (20:29)
[2019-02-07] MEDS: Warfarin 5 MG TAB PO (20:30)
[2019-02-07] MEDS: traMADol 50 MG TAB PO (22:13)
[2019-02-07] MEDS: Acetaminophen 500 MG TAB 1000 MG PO (23:19)
[2019-02-08] MEDS: Patch Removal 1 EACH TP ×2 (00:29)
[2019-02-08] MEDS: Tacrolimus 0.5 MG CAP 2 MG PO (08:27)
[2019-02-08] MEDS: traMADol 50 MG TAB 25 MG PO (08:27)
[2019-02-08] MEDS: Furosemide 20 MG TAB PO ×2 (08:28→20:28)
[2019-02-08] MEDS: Multivitamin w/Minerals TAB 1 TAB PO (08:28)
[2019-02-08] MEDS: predniSONE 5 MG TAB PO (08:28)
[2019-02-08] MEDS: Magnesium Oxide 400 MG TAB PO ×3 (08:28→20:29)
[2019-02-08] MEDS: Venlafaxine 37.5 MG CAPCR 75 MG PO (08:28)
[2019-02-08] MEDS: Citalopram 20 MG TAB PO (08:28)
[2019-02-08] MEDS: Docusate Sodium 100 MG CAP PO ×2 (08:28→20:29)
[2019-02-08] MEDS: Senna TAB 1 TAB PO (08:28)
[2019-02-08] MEDS: levETIRAcetam 500 MG TAB 1500 MG PO ×2 (08:28→20:29)
[2019-02-08] MEDS: Nystatin POWDER 15 GM JAR TP ×2 (08:29→20:26)
--- NOTE | 2019-02-08 10:58 | PT.INTREAT ---
Date of service: 02/08/19 Time of Service: 10:58 PT Notes Inpatient Physical Therapy Treatment Note [facility] Date: 02/08/19 PRECAUTIONS: Fall SUBJECTIVE: Darlene states that she is pretty comfortable in her chair. She states that she would rather not get up at this time. She does state that she walked from bed to chair this morning, and reports that it went well. OBJECTIVE: PAIN: Patient complains of left knee pain with ther ex BED MOBILITY/TRANSFERS: Sit-stand: Mod A x2 Stand-sit: Min A GAIT: Device: FWW Assist: CGA x2 Distance: 5' x2 Deviation: Increased L LE pain, cueing for direction TOILETING: Patient toileted with Max A ASSESSMENT: Patient tolerated gait training this morning. She was able to tolerate 5' x2 with FWW support, although c/o increased L LE pain. Patient would benefit from continued gait and transfer training as well as continued strengthening for improved mobility and activity tolerance. PLAN: Continue with PTs POC TREATMENT CODE/TIME: 20 minutes; [id number]
--- NOTE | 2019-02-08 11:01 | PDOC.CMPRO ---
- If Service Date Differs Date of service: 02/08/19 Time of Service: 11:01 Care Management Progress Note S/O;Darlene was sitting up in bed playing on her Ipad when CM met with her. She was pleasant and friendly but disinclined to talk. Her sister was with her, reading a book. Discharge to a SNF is planned for early this week. A; Darlene is a 53 year old woman admitted on 02/06/19 with a C5 cervical fracture. P: Anticipate Darlene will go to a SNF for short rehab stay vs hospice. Anticipate she will transport via w/c van. CM will provide guidance [facility]. CM will continue to follow and support discharge planning and disposition.
[2019-02-08] MEDS: Lidocaine 5% Patch 1 PATCH TP ×2 (12:55)
--- NOTE | 2019-02-08 14:39 | W.PM.PROGNOT ---
Date of Service Date of service: 02/08/19 Time of Service: 12:00 Assessment and Plan Assessment and plan (1) Lytic bone lesions on xray: Status: Acute Assessment and plan: CT results show innumerable lytic lesions of the cervical spine, consider multiple myeloma. Nondisplaced right C5 facet fracture which should be stable. no further work up per patient wishes, palliative care consult. continue cad pump which was increased today to achieve better pain management. plan to discharge on hospice on Saturday. case management following, patient is a DNR/DNI (2) C5 vertebral fracture: Status: Acute Assessment and plan: stable, still wearing c-collar for now. patient finds uncomfortable and would like to remove. will leave that up to hospice. (3) Seizure disorder: Status: Chronic Assessment and plan: stable with no seizures, continue keppra (4) Adrenal insufficiency: Status: Acute Assessment and plan: stable with no signs of adrenal crisis. continue home prednisone (5) History of kidney transplant: Status: Acute Assessment and plan: no active issues, continue suppressive therapy (6) Neurogenic bladder: Status: Acute Assessment and plan: continue supratherapeutic catheter. (7) Hypercoagulable state, primary: Status: Acute Assessment and plan: continue coumadin, (8) DVT prophylaxis: Status: Acute Assessment and plan: on coumadin (9) Discharge planning issues: Status: Acute Assessment and plan: plan to discharge to [facility] rehab on saturday, case management following. (10) Fungal infection of skin: Status: Acute Assessment and plan: bilateral axilla, is using topical treatment with no significant improvement. will give oral dose of diflucan 200 mg today and in one week. if not improved continue weekly for 4 weeks. Subjective Subjective Patient reports: still having pain Exam Const General: cooperative, no acute distress and ill appearing chronically Nutritional Appearance: average body habitus Orientation: alert, awake and oriented x3 Neck Neck: other (c collar in place) Resp Effort & Inspection: normal respiratory effort Auscultation: clear to auscultation bilaterally Cardio Rate: regular rate Rhythm: regular rhythm GI Inspection: normal to inspection Palpation: soft Other: suprapubic catheter in place and patent Skin Rashes: rashes noted (bilateral axilla) Neuro General: alert, awake and oriented x3 Extrem General: normal to inspection and full ROM Objective Objective Clinical Data: Vital Signs Temperature 36.9 C 02/06/19 15:05 Temperature Source Tympanic 02/06/19 15:05 Pulse 80 02/06/19 15:05 Pulse Rhythm Regular 02/08/19 02:16 Respiratory Rate 16 02/06/19 16:26 Respiratory Effort Non-Labored 02/08/19 02:16 Respiratory Depth Normal 02/08/19 02:16 Respiratory Pattern Normal 02/08/19 02:16 Blood Pressure 132/72 02/06/19 15:05 Blood Pressure Position Supine 02/05/19 07:36 Pulse Oximetry 96 02/06/19 15:05 Oxygen Delivery Method Room Air 02/07/19 21:25 Oxygen Flow Rate 0 02/07/19 21:25 Pain Level 2 02/08/19 08:27 Intake & Output 02/07/19 02/08/19 02/08/19 23:59 11:59 23:59 Intake Total 480 / 850 870 / 870 Output Total 750 / 1300 1100 / 1100 Balance -270 / -450 -230 / -230 Intake: Oral 480 / 850 870 / 870 Output: Urine 750 / 1300 1100 / 1100 Other: Urine Color Straw Yellow Urine Appearance Clear Sediment Urine Odor None Comment recorded to suprapubic Stool Size Moderate Stool Characteristics Formed Hard Brown Voiding Methods Indwelling Catheter Diaper Incontinent Laboratory Results WBC 5.08 k/cumm (4.4-10.8) 02/05/19 07:55 RBC 4.51 m/cumm (4.00-5.20) 02/05/19 07:55 Hgb 12.4 g/dL (12.0-15.5) 02/05/19 07:55 Hct 37.7 % (36.0-46.0) 02/05/19 07:55 MCV 83.6 fL (80-95) 02/05/19 07:55 MCH 27.5 pg (27.0-33.0) 02/05/19 07:55 MCHC 32.9 g/dL (32.0-36.0) 02/05/19 07:55 RDW 15.2 % (11.7-14.6) H 02/05/19 07:55 Plt Count 269 x1000/uL (130-400) 02/05/19 07:55 MPV 8.7 fL (8.0-11.0) 02/05/19 07:55 Immature Gran % 0.0 02/05/19 07:55 Neutrophils % 63.0 02/05/19 07:55 Lymphocytes % 23.2 02/05/19 07:55 Monocytes % 8.5 02/05/19 07:55 Eosinophils % 4.7 02/05/19 07:55 Basophils % 0.6 02/05/19 07:55 Absolute Neutrophils 3.20 k/cumm (1.2-6.7) 02/05/19 07:55 Absolute Lymphocytes 1.18 k/cumm (1.2-3.4) L 02/05/19 07:55 Absolute Monocytes 0.43 k/cumm (0.11-0.7) 02/05/19 07:55 Absolute Eosinophils 0.24 k/cumm (0.0-0.7) 02/05/19 07:55 Absolute Basophils 0.03 k/cumm (0.0-0.2) 02/05/19 07:55 PT 12.1 sec (9.3-11.0) H 02/06/19 06:40 INR 1.2 (0.9-1.1) H 02/06/19 06:40 APTT 31.0 sec (21.0-31.4) 02/05/19 07:55 Sodium 138 mmol/L (136-145) 02/05/19 07:55 Potassium 3.9 mmol/L (3.5-5.1) 02/05/19 07:55 Chloride 101 mmol/L (98-107) 02/05/19 07:55 Carbon Dioxide 30.4 mmol/L (21.0-32.0) 02/05/19 07:55 Anion Gap 6.6 mmol/L (3-11) 02/05/19 07:55 BUN 13 mg/dL (7-18) 02/05/19 07:55 Creatinine 0.68 mg/dL (0.55-1.02) 02/05/19 07:55 Estimated GFR/1.73 m2 >= 60.00 (mL/min/1.73m2) 02/05/19 07:55 Glucose 94 mg/dL (70-100) 02/05/19 07:55 Calcium 8.7 mg/dL (8.5-10.1) 02/05/19 07:55
[2019-02-08] MEDS: Fluconazole 100 MG TAB 200 MG PO (16:01)
[2019-02-08] MEDS: Tacrolimus 0.5 MG CAP 1 MG PO (20:28)
[2019-02-08] MEDS: Warfarin 5 MG TAB PO (20:29)
[2019-02-08] MEDS: traMADol 50 MG TAB PO (21:58)
[2019-02-09] MEDS: Patch Removal 1 EACH TP ×2 (00:11)
[2019-02-09] MEDS: Furosemide 20 MG TAB PO ×2 (07:50→21:27)
[2019-02-09] MEDS: levETIRAcetam 500 MG TAB 1500 MG PO ×2 (07:50→21:27)
[2019-02-09] MEDS: Citalopram 20 MG TAB PO (07:50)
[2019-02-09] MEDS: Multivitamin w/Minerals TAB 1 TAB PO (07:50)
[2019-02-09] MEDS: Venlafaxine 37.5 MG CAPCR 75 MG PO (07:51)
[2019-02-09] MEDS: Tacrolimus 0.5 MG CAP 2 MG PO (07:51)
[2019-02-09] MEDS: Docusate Sodium 100 MG CAP PO ×2 (07:52→21:27)
[2019-02-09] MEDS: Magnesium Oxide 400 MG TAB PO ×3 (07:52→21:27)
--- NOTE | 2019-02-09 09:33 | OT.INTREAT ---
Date of service: 02/09/19 Time of Service: 09:05 Occupational Therapy Notes Occupational Therapy Inpatient Treatment Note Date: 02/09/19 PRECAUTIONS: Fall, Standard SUBJECTIVE: Pt was sitting in chair when OT arrived. She notes that she has some leg pain today but that this is better. She states that she thinks the plan if for her to go to [facility] and rehab but she is not sure when. She is excited for this and states that she had a great experience last time. OBJECTIVE: PAIN:c/o pain in (B) upper legs BATHING: sitting in chair with max (A) set up Upper Body: (I) UE with min vc, mod (A) hair as pt reports that she is tired. Lower Body: (I) to upper thighs, max (A) below knees and (B) feet DRESSING: Sitting in chair with max (A) set up Upper Extremity: min (A) don and doffing hospital gown Lower Extremity: max (A) don and doffing (B) socks GROOMING: Sitting in chair, (I) with brushing hair with min vc TOILETING: Pt performed prior to OT session with nursing. ASSESSMENT/PLAN: Pt was able to actively participate in OT session. She requires (A) for (B) LE dressing and bathing. She is tired and presents with decreased functional activity tolerance. Plan per pt is to be discharged to [facility] when medically cleared per MD. Pt did not want to perform her bathing in the bathroom today and OT will attempt to progress pt to standing at sink as pt can tolerate at next session. OT will monitor pts response to todays session and progress accordingly. TREATMENT CODES/TIME: [id number], 25 minutes (09:05) IRLANDA [facility]
[2019-02-09] MEDS: Lidocaine 5% Patch 1 PATCH TP ×3 (11:38→15:57)
--- NOTE | 2019-02-09 12:09 | PT.INTREAT ---
Date of service: 02/09/19 Time of Service: 12:09 PT Notes Inpatient Physical Therapy Treatment Note [facility] Date: 02/09/19 PRECAUTIONS: Fall SUBJECTIVE: Darlene states that she is still in pain with movement, but is agreeable to participating in PT. OBJECTIVE: PAIN: Patient complains of left knee pain with ther ex BED MOBILITY/TRANSFERS: Sit-stand: Min A x2 Stand-sit: CGA GAIT: Device: FWW Assist: CGA x2 Distance: 10' Static standing x2 minutes with CGA and FWW support. ASSESSMENT: Patient tolerated gait training this morning. She was able to tolerate 10' with FWW support, although c/o increased L LE pain. Patient would benefit from continued gait and transfer training as well as continued strengthening for improved mobility and activity tolerance. PLAN: Continue with PTs POC TREATMENT CODE/TIME: 15 minutes; [id number]
--- NOTE | 2019-02-09 14:43 | PGE_ITS ---
Date of Service Date of service: 02/09/19 Time of Service: 14:45 Assessment and Plan Assessment and plan (1) Lytic bone lesions on xray: Status: Acute Assessment and plan: CT results show innumerable lytic lesions of the cervical spine, consider multiple myeloma. Nondisplaced right C5 facet fracture which should be stable. No further work-up per patient wishes. She has been seen by Palliative and hospice. Continue Cervical collar for cervical spine fracture. The plan will be for her to transfer to [facility] for comfort care when she is discharged from the hospital. Continue morphine CADD pump, morphine rate increased for better pain control. (2) C5 vertebral fracture: Status: Acute Assessment and plan: Stable. Wearing cervical collar. Continue morphine CADD. (3) Left knee pain: Status: Acute Assessment and plan: Continued pain in her L knee, added another lidoderm patch (#2) to knee. Continue lidoderm patches and morphine as above. (4) Seizure disorder: Status: Chronic Assessment and plan: No seizure activity noted. Continue keppra. (5) Adrenal insufficiency: Status: Acute Assessment and plan: Stable with no signs of adrenal crisis. Continue home prednisone. (6) Neurogenic bladder: Status: Acute Assessment and plan: Continue suprapubic catheter. (7) Hypercoagulable state, primary: Status: Acute Assessment and plan: Continue coumadin. (8) Fungal infection of skin: Status: Acute Assessment and plan: To bilateral axilla, has been using topical treatment with no significant improvement. Received oral diflucan yesterday and will have repeat dose in one week. If not improved continue weekly for 4 weeks. (9) S/P kidney transplant: Status: Acute Assessment and plan: History of kidney transplant. Continue suppressive therapy. (10) DVT prophylaxis: Status: Acute Assessment and plan: Continue Warfarin. (11) Discharge planning issues: Status: Acute Assessment and plan: She is a DNR/DNI. The plan is for her to be discharged to [facility] tomorrow. This case was discussed with Dr. Ortega who is in agreement. Subjective Subjective Interval history since last seen: Darlene reports pain in her left knee. She is on a morphine CADD pump, she would like the rate increased. She has been up ambulating to the bathroom, she has more pain with ambulation. She also reports an occasional cough, no shortness of breath or wheezing. She denies chest pain/pressure, palpitations. She is eating and drinking, no abdominal pain, nausea or vomiting. She had a bowel movement today. Her sister is present. She will transfer to [facility] tomorrow. Exam Narrative Exam Narrative: General: Very pleasant, middle-aged female, wearing a C-collar sitting up in chair with lunch in front of her, in NAD. Her sister is present. Became tearful when discussing pain. HEENT: Normocephalic, pupils equal and round, mucous membranes moist. Glasses on. Cardiovascular: Heart has regular rate and rhythm, systolic ejection murmur noted at RSB. Lungs: Respirations even and unlabored, lung sounds clear bilaterally. Gastrointestinal: normoactive bowel sounds, abdomen is soft, nontender on palpation Genitourinary: has a suprapubic catheter Extremities: Left knee with lidoderm patch, swelling noted, tenderness on palpation of L knee. Bilateral ankles with trace edema. Objective Objective Clinical Data: Vital Signs Temperature 36.9 C 02/06/19 15:05 Temperature Source Tympanic 02/06/19 15:05 Pulse 80 02/06/19 15:05 Pulse Rhythm Regular 02/08/19 02:16 Respiratory Rate 16 02/06/19 16:26 Respiratory Effort Non-Labored 02/09/19 08:00 Respiratory Depth Normal 02/09/19 08:00 Respiratory Pattern Normal 02/09/19 08:00 Blood Pressure 132/72 02/06/19 15:05 Blood Pressure Position Supine 02/05/19 07:36 Pulse Oximetry 96 02/06/19 15:05 Oxygen Delivery Method Room Air 02/09/19 06:22 Oxygen Flow Rate 0 02/09/19 06:22 Pain Level 0 02/09/19 06:22 Intake & Output 02/08/19 02/09/19 02/09/19 23:59 11:59 23:59 Intake Total 240 / 1110 350 / 470 120 / 470 Output Total 350 / 1450 600 / 600 Balance -110 / -340 -250 / -130 120 / -130 Intake: Oral 240 / 1110 350 / 470 120 / 470 Output: Urine 350 / 1450 600 / 600 Other: Urine Color Yellow Pale Yellow Urine Appearance Clear Clear Stool Size Copious Small Stool Characteristics Soft Formed Formed Laboratory Results WBC 5.08 k/cumm (4.4-10.8) 02/05/19 07:55 RBC 4.51 m/cumm (4.00-5.20) 02/05/19 07:55 Hgb 12.4 g/dL (12.0-15.5) 02/05/19 07:55 Hct 37.7 % (36.0-46.0) 02/05/19 07:55 MCV 83.6 fL (80-95) 02/05/19 07:55 MCH 27.5 pg (27.0-33.0) 02/05/19 07:55 MCHC 32.9 g/dL (32.0-36.0) 02/05/19 07:55 RDW 15.2 % (11.7-14.6) H 02/05/19 07:55 Plt Count 269 x1000/uL (130-400) 02/05/19 07:55 MPV 8.7 fL (8.0-11.0) 02/05/19 07:55 Immature Gran % 0.0 02/05/19 07:55 Neutrophils % 63.0 02/05/19 07:55 Lymphocytes % 23.2 02/05/19 07:55 Monocytes % 8.5 02/05/19 07:55 Eosinophils % 4.7 02/05/19 07:55 Basophils % 0.6 02/05/19 07:55 Absolute Neutrophils 3.20 k/cumm (1.2-6.7) 02/05/19 07:55 Absolute Lymphocytes 1.18 k/cumm (1.2-3.4) L 02/05/19 07:55 Absolute Monocytes 0.43 k/cumm (0.11-0.7) 02/05/19 07:55 Absolute Eosinophils 0.24 k/cumm (0.0-0.7) 02/05/19 07:55 Absolute Basophils 0.03 k/cumm (0.0-0.2) 02/05/19 07:55 PT 12.1 sec (9.3-11.0) H 02/06/19 06:40 INR 1.2 (0.9-1.1) H 02/06/19 06:40 APTT 31.0 sec (21.0-31.4) 02/05/19 07:55 Sodium 138 mmol/L (136-145) 02/05/19 07:55 Potassium 3.9 mmol/L (3.5-5.1) 02/05/19 07:55 Chloride 101 mmol/L (98-107) 02/05/19 07:55 Carbon Dioxide 30.4 mmol/L (21.0-32.0) 02/05/19 07:55 Anion Gap 6.6 mmol/L (3-11) 02/05/19 07:55 BUN 13 mg/dL (7-18) 02/05/19 07:55 Creatinine 0.68 mg/dL (0.55-1.02) 02/05/19 07:55 Estimated GFR/1.73 m2 >= 60.00 (mL/min/1.73m2) 02/05/19 07:55 Glucose 94 mg/dL (70-100) 02/05/19 07:55 Calcium 8.7 mg/dL (8.5-10.1) 02/05/19 07:55
--- NOTE | 2019-02-09 16:14 | PDOC.CMPRO ---
- If Service Date Differs Date of service: 02/09/19 Time of Service: 16:14 Care Management Progress Note S/O: Darlene was sitting up in her chair eating her lunch when CM met with her. Her sister, Nicol, was by her side, assisting her. CM discussed the plan with them for Darlene to go to a SNF on hospice. She stated that she is a little nervous about hospice, and asked when she would meet with them again, which CM advised that she would see hospice upon admission at SNF, within a day. Nicol asked about the status of Darlene's [employer] med[place] application, which CM reported that they have been contacted and CM will follow up again today. CM will continue to follow. A: Darlene is a 53 year old woman admitted on 02/06/19 with a C5 cervical fracture. P: Anticipate Darlene will go to a SNF on Hospice, possibly tomorrow. CM has sent a referral to [facility], and is awaiting an official bed offer. CM is also waiting for status confirmation on Darlene's [employer] medicaid application. CM will continue to follow and support discharge planning and disposition.
[2019-02-09] MEDS: Warfarin 5 MG TAB PO (21:27)
[2019-02-09] MEDS: Nystatin POWDER 15 GM JAR TP (21:27)
[2019-02-09] MEDS: traMADol 50 MG TAB PO (21:27)
[2019-02-09] MEDS: Tacrolimus 0.5 MG CAP 1 MG PO (21:28)
[2019-02-10] MEDS: LIDOCAINE Patch Removal 2 EACH TP ×2 (00:09→23:59)
[2019-02-10] MEDS: Patch Removal 1 EACH TP (00:10)
[2019-02-10 08:02] LABS: INR 3.5 (0.9-1.1); Prothrombin Time 33.7 sec (9.3-11.0)
[2019-02-10] MEDS: Nystatin POWDER 15 GM JAR TP ×2 (09:22→20:07)
[2019-02-10] MEDS: Tacrolimus 0.5 MG CAP 2 MG PO (09:24)
[2019-02-10] MEDS: Magnesium Oxide 400 MG TAB PO ×3 (09:25→20:08)
[2019-02-10] MEDS: Multivitamin w/Minerals TAB 1 TAB PO (09:25)
[2019-02-10] MEDS: predniSONE 5 MG TAB PO (09:25)
[2019-02-10] MEDS: Citalopram 20 MG TAB PO (09:25)
[2019-02-10] MEDS: Docusate Sodium 100 MG CAP PO ×2 (09:25→20:07)
[2019-02-10] MEDS: Furosemide 20 MG TAB PO ×2 (09:25→20:07)
[2019-02-10] MEDS: levETIRAcetam 500 MG TAB 1500 MG PO ×2 (09:25→20:07)
[2019-02-10] MEDS: Venlafaxine 37.5 MG CAPCR 75 MG PO (09:25)
--- NOTE | 2019-02-10 09:35 | OT.INTREAT ---
Date of service: 02/10/19 Time of Service: 08:20 Occupational Therapy Notes Occupational Therapy Inpatient Treatment Note Date: 02/10/19 PRECAUTIONS: Fall, standard SUBJECTIVE: Pt was sitting in chair eating breakfast when OT arrived. She notes that she might be leaving today to go to the [facility]. OBJECTIVE: PAIN:c/o pain in (B) upper legs. BATHING: sitting in chair with max (A) set up Upper Body: (I) UE with min vc, min (A) hair Lower Body: (I) to upper thighs, (I) calvin area, max (A) below knees and (B) feet DRESSING: Sitting in chair with max (A) set up Upper Extremity: min (A) don and doffing hospital gown Lower Extremity: max (A) don and doffing (B) socks GROOMING: Sitting in chair, (I) with brushing hair with min vc PLAN: Pt may transition to the [facility] rehab to transition to hospice care. TREATMENT CODES/TIME: [id number], 25 minutes (08:20) Nichole Garrett OTR/[facility]
[2019-02-10] MEDS: Lidocaine 5% Patch 1 PATCH TP (11:56)
[2019-02-10] MEDS: Lidocaine 5% Patch 2 PATCH TP (11:57)
--- NOTE | 2019-02-10 12:45 | PT.INDS ---
Date of service: 02/10/19 PT Notes Inpatient Physical Therapy Discharge Summary Dates: 02/10/2019 Dates of Service: 02/06/2019 through 02/09/2019 This is a clinical summary of care provided on the duration of dates listed above. No charge was made in the completion of this documentation. Referring Doctor: Renée Dumont MD PT Orders: PT CONSULT: Eval/treat. Limited ability Precautions: Fall. Standard. Seizure-prone. Cervical cervical collar on at all times. Activity as tolerated. Patient Profile/Admitting Diagnosis: Patient is a 53-year-old female with past medical history significant for status post renal transplant x 3, on immunosuppressives, and with neurogenic bladder who presented to the ED via EMS on 02/05/2019 due to a mechanical fall sustained while attempting to get up from bed which resulted to hitting the back of her head and her left knee. Patient was diagnosed nondisplaced C5 vertebral facet fracture, left knee pain, ambulatory dysfunction, and renal insufficiency, hypercoagulable state, lytic bone lesions on x-ray, and cerebellar lesion. PMHX: Medical History Chronic anticoagulation Chronic kidney disease Convulsions Hyperparathyroidism Neurogenic bladder Osteoporosis Peripheral neuropathy Protein S deficiency TBI (traumatic brain injury) Surgical History Colonoscopy - MAC (02/11/15) Fistula creation Renal Transplant Social History/Home Situation: Patient lives with a caregiver in a shelter with a ramp to enter in [place], [place]. She is independent with all mobility ADLs using a 4 wheeled walker. Current Functional Limitations: Need for assistance in all transfer and ambulation task performance using FWW Equipment Owned/DME: FWW Subjective: NT Objective: General Observation: NT. Please refer to PALLETISER OPERATOR note on 02/09/2019. Mental Status: NT. Please refer to PALLETISER OPERATOR note on 02/09/2019. Pain: NT. Please refer to PALLETISER OPERATOR note on 02/09/2019. ROM: Right Lower Extremity: Hip flexion WFL. Hip abduction WFL. Knee flexion WFL. Ankle dorsiflexion 0-5. Ankle plantarflexion WFL. Left Lower Extremity: Hip flexion WFL. Hip abduction WFL. Knee flexion WFL. Ankle dorsiflexion 0-5. Ankle plantarflexion WFL. Strength: Right Lower Extremity: Hip flexors 3-/5. Hip abductors 3-/5. Knee flexors 3-/5. Knee extensors 3-/5. Ankle dorsiflexors 3-/5. Ankle plantarflexors 3-/5. Left Lower Extremity: Hip flexors 3-/5. Hip abductors 3-/5. Knee flexors 3-/5. Knee extensors 3-/5. Ankle dorsiflexors 3-/5. Ankle plantarflexors 3-/5. Sensation: Intact as to pain and pressure on bilateral lower extremities. Bed Mobility/Transfers: Rolling minimal assist Supine to sit minimal assist to bilateral LE due to pain complaints Sit to supine minimal assist to bilateral LE due to pain complaints Sit to stand minimal assist with bilateral UEs support and using FWW Stand to sit minimal assist with bilateral UEs support and using FWW Bed to chair minimal assist with bilateral UEs support and using FWW Chair to bed minimal assist with bilateral UEs support and using FWW Gait: Patient was able to tolerate level surface ambulation of 10 feet with CGA x 2 provided using FWW with FWB. Bilateral feet eversion with genu vara observed. Thoracic scoliosis noted. Increased trunk flexion seen during gait activity. Decreased gait velocity with decreased bilateral knee flexion. Balance: Static Sitting: Good Dynamic Sitting: Fair Static Standing: Fair Dynamic Standing: Fair Assessment: 53-year-old female who is status post renal transplant x3 on immunosuppressives and with neurogenic bladder now with diagnosis of non-displaced C5 vertebral facet fracture, left knee pain, ambulatory dysfunction, and renal insufficiency, hypercoagulable state, lytic bone lesions on x-ray, and cerebellar lesion. Prognosis for this patient is poor to fair considering co-morbidities. Per case management notes patient may go home on hospice care once medically cleared to do so from this hospital. If pain is controlled patient may be able to achieve established goals as listed below. Patient presents with clinical signs and symptoms consistent with current/admitting diagnoses that have resulted to mobility limitations, gait instability, generalized weakness, and impairment of motor control as demonstrated by the following impairment level findings: 1. Decreased strength to B LE major muscle groups 2. Impaired sitting/standing balance 3. Impaired activity tolerance 4. Limitation of joint range of motion in bilateral ankles 5. Pain to bilateral knees Impairments are contributing to the following functional limitations: 1. Dependent bed mobility skills 2. Increased dependence with transfers 3. Inability to safely ambulate without assistive device and physical assistance 4. Increase completion time for mobility ADL performance 5. Increased fall risk 6. Inability to negotiate steps alone safely Goals: Goals X1 week 1. Supine-Sit independent NOT MET 2. Sit-Supine independent NOT MET 3. Sit-Stand independent NOT MET 4. Stand-Sit independent NOT MET 5. Bed-Chair independent NOT MET 6. Chair-Bed independent NOT MET 7. Independent gait on level surface with use of least restrictive device for at least 50 feet without report of pain nor dyspnea NOT MET 8. Good static and dynamic standing balance/tolerance NOT MET DISCHARGE RECOMMENDATIONS: Patient will benefit from senior care facility placement in order to progress mobility level, strength, and balance in preparation for a safe discharge to home. TREATMENT CODE/TIME: NC. Thank you very much for this referral. Scarlet Jade PT, DPT, CLT [facility]
--- NOTE | 2019-02-10 14:11 | PGE_ITS ---
Date of Service Date of service: 02/10/19 Time of Service: 14:12 Assessment and Plan Assessment and plan (1) Lytic bone lesions on xray: Status: Acute Assessment and plan: CT results show innumerable lytic lesions of the cervical spine, consider multiple myeloma. Nondisplaced right C5 facet fracture which should be stable, per radiology read. No further work-up per patient wishes. She has been seen by Palliative and hospice. She is transitioning to comfort measures. Continue Cervical collar for cervical spine fracture. The plan will be for her to transfer to [facility] for comfort care when she is discharged from the hospital. Continue morphine CADD pump, morphine rate increased for better pain control. (2) C5 vertebral fracture: Status: Acute Assessment and plan: Stable. Wearing cervical collar. Continue morphine CADD. Consider removing cervical collar if it makes her more comfortable. (3) Left knee pain: Status: Acute Assessment and plan: Left knee pain improved with lidoderm patches. Continue lidoderm patches and morphine as above. (4) Seizure disorder: Status: Chronic Assessment and plan: No seizure activity noted. Continue keppra. (5) Adrenal insufficiency: Status: Acute Assessment and plan: Stable with no signs of adrenal crisis. Continue home prednisone. (6) Neurogenic bladder: Status: Acute Assessment and plan: Continue suprapubic catheter. (7) Hypercoagulable state, primary: Status: Acute Assessment and plan: INR supratherapeutic at 3.5, hold coumadin. Consider discontinuing coumadin as she is transitioning to comfort care/hospice. (8) Fungal infection of skin: Status: Acute Assessment and plan: To bilateral axilla, has been using topical treatment with no significant improvement. Received oral diflucan 02/08/15 and will have repeat dose in one week. If not improved continue weekly for 4 weeks. (9) S/P kidney transplant: Status: Acute Assessment and plan: History of kidney transplant. Continue suppressive therapy. (10) DVT prophylaxis: Status: Acute Assessment and plan: Supratherapeutic on Warfarin. (11) Discharge planning issues: Status: Acute Assessment and plan: She is a DNR/DNI. The plan is for her to be discharged to [facility] tomorrow. This case was discussed with Dr. Ortega who is in agreement. Subjective Subjective Interval history since last seen: Darlene reports that her pain is well controlled with the changes made yesterday. She has been out of bed and her pain was tolerable. She did not sleep well last night due to wearing the cervical collar. She is thinking about not wearing it when she goes on hospice. She denies shortness of breath, coughing, wheezing, chest pain/pressure, palpitations. She is eating and drinking, no abdominal pain, nausea or vomiting. She is having bowel movements. Her catheter is draining clear, yellow urine. Her sister is present. They are in agreement with her being transferred to [facility] and transitioning to hospice care. Exam Narrative Exam Narrative: General: Very pleasant, middle-aged female, wearing a C-collar, laying in bed with head elevated, watching TV, in NAD. Her sister is present. HEENT: Normocephalic, pupils equal and round, mucous membranes moist. Glasses on. Cardiovascular: Heart has regular rate and rhythm, systolic ejection murmur noted at LSB. Lungs: Respirations even and unlabored, lung sounds clear bilaterally. Gastrointestinal: normoactive bowel sounds, abdomen is soft, nontender on palpation Genitourinary: has a suprapubic catheter Extremities: Left knee with lidoderm patch (x2), swelling noted, tenderness on palpation of L knee. Bilateral lower extremities with +1 edema. Objective Objective Clinical Data: Abnormal lab results 02/10/19 Range/Units 07:05 PT 33.7 H (9.3-11.0) sec INR 3.5 H (0.9-1.1) Vital Signs Temperature 36.9 C 02/06/19 15:05 Temperature Source Tympanic 02/06/19 15:05 Pulse 80 02/06/19 15:05 Pulse Rhythm Regular 02/08/19 02:16 Respiratory Rate 16 02/06/19 16:26 Respiratory Effort 02/10/19 11:43 Respiratory Depth Normal 02/10/19 11:43 Respiratory Pattern Normal 02/10/19 11:43 Blood Pressure 132/72 02/06/19 15:05 Blood Pressure Position Supine 02/05/19 07:36 Pulse Oximetry 96 02/06/19 15:05 Oxygen Delivery Method Room Air 02/09/19 23:20 Oxygen Flow Rate 0 02/09/19 23:20 Pain Level 0 02/09/19 23:20 Intake & Output 02/09/19 02/10/19 02/10/19 23:59 11:59 23:59 Intake Total 120 / 470 370 / 370 Output Total 900 / 1500 600 / 600 Balance -780 / -1030 370 / -230 -600 / -230 Intake: Oral 120 / 470 370 / 370 Output: Urine 900 / 1500 600 / 600 Other: Urine Color Straw Dark Mirella Urine Appearance Cloudy Clear Stool Size Large Stool Characteristics Hard Laboratory Results WBC 5.08 k/cumm (4.4-10.8) 02/05/19 07:55 RBC 4.51 m/cumm (4.00-5.20) 02/05/19 07:55 Hgb 12.4 g/dL (12.0-15.5) 02/05/19 07:55 Hct 37.7 % (36.0-46.0) 02/05/19 07:55 MCV 83.6 fL (80-95) 02/05/19 07:55 MCH 27.5 pg (27.0-33.0) 02/05/19 07:55 MCHC 32.9 g/dL (32.0-36.0) 02/05/19 07:55 RDW 15.2 % (11.7-14.6) H 02/05/19 07:55 Plt Count 269 x1000/uL (130-400) 02/05/19 07:55 MPV 8.7 fL (8.0-11.0) 02/05/19 07:55 Immature Gran % 0.0 02/05/19 07:55 Neutrophils % 63.0 02/05/19 07:55 Lymphocytes % 23.2 02/05/19 07:55 Monocytes % 8.5 02/05/19 07:55 Eosinophils % 4.7 02/05/19 07:55 Basophils % 0.6 02/05/19 07:55 Absolute Neutrophils 3.20 k/cumm (1.2-6.7) 02/05/19 07:55 Absolute Lymphocytes 1.18 k/cumm (1.2-3.4) L 02/05/19 07:55 Absolute Monocytes 0.43 k/cumm (0.11-0.7) 02/05/19 07:55 Absolute Eosinophils 0.24 k/cumm (0.0-0.7) 02/05/19 07:55 Absolute Basophils 0.03 k/cumm (0.0-0.2) 02/05/19 07:55 PT 33.7 sec (9.3-11.0) H 02/10/19 07:05 INR 3.5 (0.9-1.1) H 02/10/19 07:05 APTT 31.0 sec (21.0-31.4) 02/05/19 07:55 Sodium 138 mmol/L (136-145) 02/05/19 07:55 Potassium 3.9 mmol/L (3.5-5.1) 02/05/19 07:55 Chloride 101 mmol/L (98-107) 02/05/19 07:55 Carbon Dioxide 30.4 mmol/L (21.0-32.0) 02/05/19 07:55 Anion Gap 6.6 mmol/L (3-11) 02/05/19 07:55 BUN 13 mg/dL (7-18) 02/05/19 07:55 Creatinine 0.68 mg/dL (0.55-1.02) 02/05/19 07:55 Estimated GFR/1.73 m2 >= 60.00 (mL/min/1.73m2) 02/05/19 07:55 Glucose 94 mg/dL (70-100) 02/05/19 07:55 Calcium 8.7 mg/dL (8.5-10.1) 02/05/19 07:55
[2019-02-10] MEDS: Nystatin 500000 UNITS/5 ML SUSP 5ML CUP PO ×2 (15:00→20:08)
--- NOTE | 2019-02-10 15:11 | CHAPLAIN ---
Darlene and I remembered one another from a previous admission. She asked about being able to roll yarn up into balls, so I got her some yarn. She talked about the neck brace she was wearing. Her sister was with her.
--- NOTE | 2019-02-10 16:25 | CMPROGNOTE_ITS ---
- If Service Date Differs Date of service: 02/10/19 Time of Service: 16:25 Care Management Progress Note S/O: Darlene was sitting up in her chair when CM met with her. Her sister, Nicol was by her side. CM updated the plan with them for Darl[facility] and to begin Hospice treatment upon admission. CM coordinated bed offer at [facility], as well as same day Hospice admission. Hospice faxed paperwork for Nicol (guardian) to sign today as she will not be present to sign prior to discharge tomorrow. CM followed up on nursing home medicaid application, which is still pending. Nicol informed CM that she is trying to coordinate another sister to be present during discharge. CM will continue to follow. A: Darlene is a 53 year old woman admitted on 02/06/19 with a C5 cervical fracture. P: Anticipate Darlene will go to [facility] Hospice, tomorrow at 11 am. CM has sent a referral to [facility], and has received an official bed offer. 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 Hospice sent over paperwork for Nicol (Guardian) to sign. [facility] will send their w/c van to pick Darlene up for transport. CM will continue to follow and support discharge planning and dis position.
[2019-02-10] MEDS: Tacrolimus 0.5 MG CAP 1 MG PO (20:07)
[2019-02-10] MEDS: traMADol 50 MG TAB PO (21:57)
[2019-02-11] MEDS: Patch Removal 1 EACH TP
--- NOTE | 2019-02-11 07:35 | OT.INDS ---
Date of service: 02/11/19 Time of Service: 07:35 Occupational Therapy Notes Occupational Therapy Inpatient Discharge Summary Date: 02/11/19 Dates of Service: 02/06/19-02/11/19 Referring Doctor: Renée Dumont MD OT Orders: Eval and Treat Precautions: Fall, Decreased safety awareness, Standard PATIENT PROFILE/ADMITTING DIAGNOSIS: Pt is a 53 year old female admitted through the ER for mechanical fall sustained while getting up from bed which resulted to hitting the back of her head and her left knee which has increased pain in her (B) LE. Patient was diagnosed nondisplaced C5 vertebral facet fracture, left knee pain, ambulatory dysfunction, and renal insufficiency, hypercoagulable state, lytic bone lesions on x-ray, and cerebellar lesion per pt's EMR. Pt is s/p renal transplant x3 and has a neurogenic bladder. Past Medical History: Chronic anticoagulation Chronic kidney disease Convulsions Hyperparathyroidism Neurogenic bladder Osteoporosis Peripheral neuropathy Protein S deficiency TBI (traumatic brain injury) Surgical History Colonoscopy - MAC (02/11/15) Fistula creation Renal Transplant Social History/Home Situation: Pt states that she lives in a nursing home setting in [place], [place]. She reports that she is at this time and since she [facility] been max (A) for all ADLs/IADLs and later states that she requires (A) with putting on (B) socks, pulling up her pants, and helping her whenever she needs it for food. She reports that she is unable to cut her own food, and that her sister came in last night to feed her. She uses a shower chair in the shower and states that she uses a FWW for functional mobility. Equipment owned/DME: FWW, shower chair SUBJECTIVE: NT THis document serves as a summary of care, no skilled OT services provided for this documentation. OBJECTIVE: ROM: RUE Shoulder flexion limited to 135*, elbow WNL, hand and digits WNL L UE Shoulder flexion WNL, elbow WNL, hand and digits WNL Pt has a significant vistula on (L) UE STRENGTH: RUE Shoulder flexion 3-/5, bicep 3-/5, tricep 2+/5, cooling tower operator is very weak LUE Shoulder flexion 3-/5, bicep 3-/5, tricep 3-/5, cooling tower operator is very weak FUNCTIONAL MOBILITY/ADLS: Supine-sit Min (A) Sit to supine Min (A) Sit to stand Min (A) x2 Stand to sit Min (A) x2 Bed-chair Min (A) x2 BATHING: sitting in chair with max (A) set up Upper Body: (I) UE with min vc, min (A) hair Lower Body: (I) to upper thighs, (I) calvin area, max (A) below knees and (B) feet DRESSING: Sitting in chair with max (A) set up Upper Extremity: min (A) don and doffing hospital gown Lower Extremity: max (A) don and doffing (B) socks GROOMING: Sitting in chair, (I) with brushing hair with min vc BALANCE: Static sitting Good Dynamic Sitting Good Static standing Fair-Good Dynamic standing Fair-Good ASSESSMENT: Patient is a 53-year-old female referred to occupational therapy services with diagnosis of mechanical fall sustained while attempting to get up from bed which resulted to hitting the back of her head and her left knee which has increased pain in her (B) LE. Patient was dx with nondisplaced C5 vertebral facet fracture, left knee pain, ambulatory dysfunction, and renal insufficiency, hypercoagulable state, lytic bone lesions on x-ray, and cerebellar lesion. Pt was seen for 3 skilled OT sessions she has been actively participating in OT sessions with increased fatigue. Pt continues to have pain in her (B) LE which pt has had since last admission. Pt functionally is limited due to her cervical collar but is able to perform her UE bathing routines. Plan is for pt to be discharged to [facility] today with transition to Hospice care. OT will plan to discharge pt at this time. GOALS 1. Dressing Sitting in chair mod (A) don and doffing (B) socks and pants, (I) donning and doffing UE-not met 2. Bathing Sitting in chair mod (A) LE, (I) UE-not met 4. Toileting on commode mod (A)-met 5. Eating sitting in chair (I) with food to mouth and max (A) cutting food-met 6. Grooming sitting in chair (I) teeth and hair-met PLAN OF CARE/TREATMENT PLAN: Discharge from skilled OT services. DISCHARGE RECOMMENDATIONS Pt to go to [facility] and transition to hospice care. TREATMENT TIME/MINUTES/CODES N/A Nichole Garrett, OTR/L [facility]
[2019-02-11 07:48] LABS: INR 5.5 (0.9-1.1)
[2019-02-11] MEDS: Citalopram 20 MG TAB PO (09:31)
[2019-02-11] MEDS: Nystatin POWDER 15 GM JAR TP (09:31)
[2019-02-11] MEDS: Nystatin 500000 UNITS/5 ML SUSP 5ML CUP PO (09:31)
[2019-02-11] MEDS: Tacrolimus 0.5 MG CAP 2 MG PO (09:31)
[2019-02-11] MEDS: Venlafaxine 37.5 MG CAPCR 75 MG PO (09:33)
[2019-02-11] MEDS: Magnesium Oxide 400 MG TAB PO (09:33)
[2019-02-11] MEDS: Multivitamin w/Minerals TAB 1 TAB PO (09:33)
[2019-02-11] MEDS: Furosemide 20 MG TAB PO (09:33)
[2019-02-11] MEDS: Docusate Sodium 100 MG CAP PO (09:33)
[2019-02-11] MEDS: levETIRAcetam 500 MG TAB 1500 MG PO (09:34)
--- NOTE | 2019-02-11 10:10 | W.PM.DS.N ---
Date of service: 02/11/19 Time of Service: 10:12 DS: Diagnosis Discharge Diagnosis (1) Lytic bone lesions on xray: Status: Acute (2) C5 vertebral fracture: Status: Acute (3) Left knee pain: Status: Acute (4) Seizure disorder: Status: Chronic (5) Adrenal insufficiency: Status: Acute (6) Neurogenic bladder: Status: Acute (7) Hypercoagulable state, primary: Status: Acute (8) Fungal infection of skin: Status: Acute (9) S/P kidney transplant: Status: Acute (10) DVT prophylaxis: Status: Acute (11) Discharge planning issues: Status: Acute Discharge Plan Disposition Patient Disposition: SNF ([facility]) [facility] Condition: Stable Discharge Details Chief Complaint: Trauma Clinical Impression: Cervical spine fracture, Lytic bone lesions on xray, Fall, Cerebellar lesion Reason For Visit: C SPINE LESIONS, BRAIN LESION, FALL, L KNEE PAIN Admit Date/Time: 02/06/19 10:34 Admit Provider: Renée Dumont Attending Provider: Renée Dumont Primary Care Provider: Nader Dobson ED Provider: Michelet Asencio Hospital Course Hospital Course: Darlene Farah is a very pleasant 53 year old female with a past medical history significant for seizure disorder, cognitive impairment, renal failure s/p kidney transplant, on immunosupression with tacrolimus, mycophenolate, and prednisone, as well as history of hypercoagulable state on coumadin, neurogenic bladder, s/p suprapubic catheter, and seizure disorder who presented to the ED on 02/05/19 after falling while trying to get out of bed at her community detention. She reported hitting her head, neck and left knee without loss of consciousness. In the ED, she had a CT which showed a stable nondisplaced right C5 facet fracture, an old left occipital infarct, a question of cerebellar lesion, and innumerable lytic lesions in C spine, such as in multiple myeloma. No fracture noted in her left knee. She was clear at the time of her admission, with her sister (Nicol/guardian) present, that she is most interested in being comfortable in returning home. She was not interested in invasive measures or any further work-up/testing. She was seen by Dr. Chamorro, palliative care, who met with her and her sister/guardian. Her sister Nicol had already obtained a DNR/DNI designation through the court system. The decision was made for her to transition to hospice care. She was accepted at [facility] with plans to enroll in hospice care at the time of her transfer. She was made comfort measures only while at the hospital. She was initiated on a morphine drip for pain management. She remained on her anti-rejection medications and coumadin for hypercoagulable state. Her INR was supratherapeutic and her warfarin was held the night prior to her discharge. Her INR was again elevated on the day of discharge and her coumadin remains on hold. It will be left to hospice to decide what medications to continue. She has also been wearing a cervical collar for her C-5 fracture, which was noted to likely be stable by Radiology, therefore, if it is more comfortable for her to remove the cervical collar, hospice may allow her to remove the collar. She is discharged to [facility] today for end of life care. Home Meds and New Rx's Prescriptions: New fluconazole 100 mg Tablet 200 mg PO ONCE Qty: 1 RF: 0 acetaminophen [Mapap Extra Strength] 500 mg Tablet 1,000 mg PO Q8H PRN PRNQty: 0 RF: 0 magnesium hydroxide [Milk of Magnesia] 400 mg/5 mL Suspension 30 ml PO BID PRN PRNQty: 0 RF: 0 bisacodyl 10 mg Suppository 10 mg MI BID PRN PRNQty: 0 RF: 0 lidocaine [Lidoderm] 5 % Adhesive Patch,Medicated 2 patch topical DAILY@1200 Qty: 0 RF: 0 docusate sodium [Colace] 100 mg Capsule 100 mg PO BID Qty: 0 RF: 0 bisacodyl 5 mg Tablet,Delayed Release (Dr/Ec) 5 mg PO DAILY PRN PRNQty: 0 RF: 0 sennosides [Senokot] 8.6 mg Tablet 1 tab PO BID PRN PRNQty: 0 RF: 0 nystatin 100,000 unit/mL Suspension 500,000 units PO TID Qty: 0 RF: 0 Continued levetiracetam [Keppra] 750 MG tablet 1,500 mg PO BID RF: 0 mycophenolate mofetil 250 mg Capsule 250 mg PO BID RF: 0 prednisone 5 mg Tablet 5 mg PO Q OTHER DAY RF: 0 citalopram 20 mg Tablet 20 mg PO DAILY RF: 0 warfarin 5 mg Tablet 5 mg PO DAILY RF: 0 tramadol 50 mg Tablet 50 mg PO HS Qty: 0 RF: 0 lidocaine [Lidoderm] 5 % Adhesive Patch,Medicated 1 patch topical DAILY@1800 Qty: 14 RF: 0 magnesium oxide 400 mg Capsule 400 mg PO TID RF: 0 Central-Maria L Tablet 1 tab PO DAILY RF: 0 terbinafine HCl 1 % Cream 0 g topical BID Qty: 0 RF: 0 nystatin 100,000 unit/gram Powder 1 unit topical BID Qty: 1 RF: 0 tacrolimus 0.5 mg Capsule 2 mg PO QAM Qty: 0 RF: 0 tacrolimus 0.5 mg Capsule 1 mg PO QPM Qty: 0 RF: 0 furosemide 20 mg Tablet 20 mg PO BID Qty: 0 RF: 0 venlafaxine 75 mg Tablet 75 mg PO DAILY RF: 0 d-mannose Powder See Rx Instructions .ROUTE .COMPLEX RF: 0 Changed tramadol 50 mg Tablet 50 mg PO Q8H PRN PRNQty: 18 RF: 0 Discontinued acetaminophen [Tylenol] 325 MG tablet 650 mg PO PRN RF: 0 alendronate 70 MG tablet 70 mg PO DIRECTED RF: 0 Discharge Instructions Instructions: Hospice Care (GEN) Stand Alone Forms: Nursing Discharge Form Referrals: Mónica Crandall [ NON-[facility] STAFF PHYSICIAN] - 02/19/19 1:00 pm (home visit) Activity:: Activity as Tolerated Equipment/Supplies:: No Equipment Needed Diet:: As Tolerated Discharge Orders Discharge Orders: Discharge Order (Routine); Ordered 02/11/19 Ordered By: Sheila Johnson DS: Summary Status at Discharge Functional status at discharge: uses cane/walker Overall status at discharge: patient is not back to baseline Mental Status: mental status grossly normal (Cognitive impairment at baseline) Speech and Movement: speech and movement normal Mood: congruent mood Affect: normal affect (Tearful at times) Exam Narrative Exam Narrative: General: Very pleasant, middle-aged female, wearing a C-collar, sitting up in chair, watching TV, in NAD. HEENT: Normocephalic, pupils equal and round, mucous membranes moist. Glasses on. Cardiovascular: Heart has regular rate and rhythm, systolic ejection murmur noted at LSB. Lungs: Respirations even and unlabored, lung sounds clear bilaterally. Gastrointestinal: normoactive bowel sounds, abdomen is soft, nontender on palpation Genitourinary: has a suprapubic catheter Extremities: LUE with fistula. Left knee with lidoderm patch (x2), swelling noted, tenderness on palpation of L knee. Bilateral lower extremities with +1 edema. Psych Mental Status: mental status grossly normal (Cognitive impairment at baseline) Speech and Movement: speech and movement normal Mood: congruent mood Affect: normal affect (Tearful at times) DS: Data Vitals/I&O Vitals and I&O: Vital Signs Temperature 36.9 C 02/06/19 15:05 Temperature Source Tympanic 02/06/19 15:05 Pulse 80 02/06/19 15:05 Pulse Rhythm Regular 02/08/19 02:16 Respiratory Rate 16 02/06/19 16:26 Respiratory Effort 02/11/19 00:44 Respiratory Depth Normal 02/11/19 00:44 Respiratory Pattern Normal 02/11/19 00:44 Blood Pressure 132/72 02/06/19 15:05 Blood Pressure Position Supine 02/05/19 07:36 Pulse Oximetry 96 02/06/19 15:05 Oxygen Delivery Method Room Air 02/09/19 23:20 Oxygen Flow Rate 0 02/09/19 23:20 Pain Level 2 02/10/19 22:57 Intake & Output 02/10/19 02/10/19 02/11/19 11:59 23:59 11:59 Intake Total 370 / 370 240 / 240 Output Total 600 / 600 550 / 550 Balance 370 / -230 -600 / -230 -310 / -310 Intake: Oral 370 / 370 240 / 240 Output: Urine 600 / 600 550 / 550 Other: Urine Color Dark Mirella Straw Urine Appearance Clear Clear Cloudy Data Completed and Pending Completed studies during hospitalization [Text1]: 02/05/19: EXAM: XR FEMUR LT INDICATION: fall, pain in Left femur/knee. COMPARISON: No exams were available for comparison TECHNIQUE: 2D digital imaging was performed. FINDINGS: Four views were obtained. There are severe degenerative changes of the hip. No acute fracture seen. EXAM: CT HEAD CERVICAL SPINE WO CLINICAL HISTORY: fall, hit head, on coumadin, OLD C1 fx. TECHNIQUE: COMPARISON: HEAD WITHOUT CONTRAST from 07/04/2016 FINDINGS: CT examination of the cervical spine was performed utilizing multi slice acquisition and multiplanar reconstruction. There are innumerable lytic lesions of varying size of all the bones of the cervical spine as well as portions of this skull base including the occipital condyles with marked bony loss at multiple sites. There is nondisplaced facet fracture of C5 on the right. No additional acute fracture identified. No cervical mass or adenopathy. Visualized lung apices are clear. Presumed old right occipital infarct noted. No evidence of acute hemorrhage or midline shift. Possible area of decreased attenuation in left cerebellar hemisphere, question old infarct, intracranial mass not excluded. Correlation with brain MRI recommended including post contrast imaging. IMPRESSION: Innumerable lytic lesions of the cervical spine, consider multiple myeloma. Nondisplaced right C5 facet fracture which should be stable. Old left occipital infarct. No gross acute hemorrhage. Question left cerebellar lesion, correlation with MRI recommended including postcontrast imaging. EXAM: XR KNEE LT 3V AP,LAT,NILDA INDICATION: fall, pain in Left femur/knee. COMPARISON: LEFT KNEE 3 VIEW COMPLETE from 08/02/2017 TECHNIQUE: 2D digital imaging was performed. FINDINGS: Four views were obtained. IMPRESSION: Addenda: No fracture is seen. EXAM: XR HIP LT COMPLETE AP PELVIS INDICATION: left hip pain after fall. COMPARISON: XR HIP LT 1V from 05/21/2018 XR FEMUR LT from 02/05/2019 TECHNIQUE: 2D digital imaging was performed. FINDINGS: Lateral view of the left hip shows no evidence of fracture. Labs on day of discharge: Labs from last 24 hours 02/11/19 06:50 PT 53.0 H INR 5.5 H* D [facility] Medical History Chronic anticoagulation Chronic kidney disease Convulsions Hyperparathyroidism Neurogenic bladder Osteoporosis Peripheral neuropathy Protein S deficiency TBI (traumatic brain injury) Surgical History Colonoscopy - MAC (02/11/15) INO MERINO Fistula creation Renal Transplant Social History Smoking/Tobacco Use Status: Never Alcohol Intake: never Drug use: Never Substance use type: does not use Do you feel safe at home: Yes Do you feel safe in your relationship?: Yes Additional Social history: Lives in senior living in [place]. Has [facility] care there as well.
--- NOTE | 2019-02-11 10:48 | PDOC.CMDIS ---
- If Service Date Differs Date of service: 02/11/19 Time of Service: 10:48 LACE Index Scoring Tool - Questions: Length of Stay (in days): 7 - 13 Acuity (Admit via E.D.?): Yes Comorbidities: Congestive Heart Failure E.D. Visits: 5 - Answers: Total Score: 14 Risk of Readmission: High Risk Care Management Discharge Reason for Hospitalization: Cervical spine fracture, Lytic bone lesions on xray, Fall, Cerebellar lesion Discharge Plan: Darlene will go to [facility] for end of life care with support from Hospice. Her sister, Nicol, is her guardian, and will support her during this process, along with her other siblings. Hospice met with Darlene prior to discharge to replace her morphine CADD pump. Darlene will be transported via [facility] van. Darlene is agreeable to the plan. Patient/Family Education Needs: Review discharge instructions, discuss expectations, goals and plan of care. Services Needed at Discharge: Group Home Facility
== END 2019-02-11 11:23 | disposition skilled nursing facility (03) | DRG 552 ==
LOC: ER 11:03 → MS 12:35
PROVIDERS: General Practice; Internal Medicine; Admitting Provider Internal Medicine; Emergency Provider Student in an Organized Health Care Education/Training Program; PCP Internal Medicine; Visit Provider Internal Medicine
DX: S12.400A Unspecified displaced fracture of fifth cervical vertebra, initial encounter for closed fracture (principal); E27.40 Unspecified adrenocortical insufficiency; D68.59 Other primary thrombophilia; Z94.0 Kidney transplant status; C90.00 Multiple myeloma not having achieved remission; N25.0 Renal osteodystrophy; G93.89 Other specified disorders of brain; R93.7 Abnormal findings on diagnostic imaging of other parts of musculoskeletal system; M89.9 Disorder of bone, unspecified; M25.562 Pain in left knee; W06.XXXA Fall from bed, initial encounter; Y92.092 Bedroom in other non-institutional residence as the place of occurrence of the external cause; N31.9 Neuromuscular dysfunction of bladder, unspecified; Z93.51 Cutaneous-vesicostomy status; Z79.01 Long term (current) use of anticoagulants; B36.9 Superficial mycosis, unspecified; Z79.899 Other long term (current) drug therapy; G40.909 Epilepsy, unspecified, not intractable, without status epilepticus; F79 Unspecified intellectual disabilities; Z51.5 Encounter for palliative care; Z66 Do not resuscitate; T45.515A Adverse effect of anticoagulants, initial encounter; Z79.52 Long term (current) use of systemic steroids
CPT/HCPCS: 36415; 73552; 73562; 80048; 93005; 97110; 97162; 97166; 97530; 97535; 99223; 99232; 99233; 99239; 99253; 99285; L0172; 70450; 72125; 73502; 85025; 85610; 85730; 93010; 99220; G0378; J0131; J2270; J3490; J7512

== ENCOUNTER 2019-04-18 18:58 | Outpatient (REF) | payer MEDICARE, MEDICAID, SELFPAY | END 2019-04-18 19:18 | LOC: NCHCN 18:58 | PROVIDERS: PCP Internal Medicine; Visit Provider Family Medicine | DX: Z96.0 Presence of urogenital implants (principal); Z94.0 Kidney transplant status | CPT/HCPCS: 87077; 87070; 87186; 87205 ==

== ENCOUNTER 2019-05-15 17:18 | Outpatient (REF) | payer MEDICARE, MEDICAID, SELFPAY ==
[2019-05-15 18:50] LABS: Bilirubin Negative (Negative); Blood Large (Negative); Clarity Cloudy (Clear); Glucose Negative (Negative); Ketones Negative (Negative); Leukocyte Esterase Moderate (Negative); Nitrite Positive (Negative); Urobilinogen 0.2 EU/dL (Up TO 0.2); pH 8.5 (5-8)
[2019-05-15 19:03] LABS: RBC >50 HPF (0-2); WBC >50 HPF (0-5)
[2019-05-15 19:04] LABS: Bacteria Many HPF (Negative); C & S Indicated? C&S Done As Ordered
== END 2019-05-15 17:38 ==
LOC: LBN 17:18
PROVIDERS: PCP Internal Medicine; Visit Provider Nurse Practitioner Adult Health
DX: R82.998 Other abnormal findings in urine (principal)
CPT/HCPCS: 87077; 81003; 81015; 87086; 87186

== ENCOUNTER 2019-05-26 12:09 | Outpatient (CLI) | payer MEDICARE, MEDICAID, SELFPAY ==
[2019-05-26 13:19] LABS: Anion Gap 8.6 mmol/L (3-11); BUN 20 mg/dL (7-18); CO2 29.4 mmol/L (21.0-32.0); CREATININE 0.68 mg/dL (0.55-1.02); Calcium 8.1 mg/dL (8.5-10.1); Chloride 104 mmol/L (98-107); Glucose 91 mg/dL (74-106); Potassium 4.1 mmol/L (3.5-5.1); Sodium 142 mmol/L (136-145)
== END 2019-05-26 12:29 ==
PROVIDERS: PCP Internal Medicine; Visit Provider Nurse Practitioner Adult Health
DX: N39.0 Urinary tract infection, site not specified (principal); Z94.0 Kidney transplant status
CPT/HCPCS: 36415; 80048

== ENCOUNTER 2019-06-21 16:10 | Outpatient (REF) | payer MEDICARE, MEDICAID, SELFPAY ==
[2019-06-21 16:33] LABS: Bilirubin Negative (Negative); Blood Moderate (Negative); Clarity Sl Cloudy (Clear); Glucose Negative (Negative); Ketones Negative (Negative); Leukocyte Esterase Large (Negative); Nitrite Negative (Negative); Specific Gravity 1.015 (1.005-1.025); Urobilinogen 0.2 EU/dL (Up TO 0.2)
[2019-06-21 16:54] LABS: Bacteria Rare HPF (Negative); C & S Indicated? C&S Done As Ordered; Crystals Negative HPF (Negative); Epithelial Cells Negative HPF (Negative); Mucus Negative (Negative); Other Cells Rare Transitional (Negative); WBC 20-50 HPF (0-5)
== END 2019-06-21 16:30 ==
LOC: LBN 16:10
PROVIDERS: PCP Internal Medicine; Visit Provider Nurse Practitioner Adult Health
DX: N39.0 Urinary tract infection, site not specified (principal); N31.9 Neuromuscular dysfunction of bladder, unspecified
CPT/HCPCS: 87077; 81003; 81015; 87086; 87186

== ENCOUNTER → 2019-06-29 14:02 | Outpatient (BNVA) | payer MEDICARE, MEDICAID, SELFPAY | PROVIDERS: PCP Internal Medicine; Referring Provider Internal Medicine; Visit Provider Urology | DX: R32 Unspecified urinary incontinence (principal); Z96.0 Presence of urogenital implants | CPT/HCPCS: 99213 ==

== ENCOUNTER 2019-07-17 14:30 | Outpatient (REF) | payer MEDICARE, MEDICAID, SELFPAY ==
[2019-07-17 14:58] LABS: Abs Immature Grans 0.02 k/cumm (0.0-0.09); Absolute Basophil Count 0.02 k/cumm (0.0-0.2); Absolute Eosinophil Count 0.31 k/cumm (0.0-0.7); Absolute Lymphocyte Count 1.18 k/cumm (1.2-3.4); Absolute Monocyte Count 0.57 k/cumm (0.11-0.7); Absolute Neutrophil Count 6.66 k/cumm (1.2-6.7); Basophils % 0.2; Eosinophils % 3.5; Immature Grans % 0.2 %; Lymphocytes % 13.5; Mean Corp. HGB Concentration 32.4 g/dL (32.0-36.0); Mean Corpuscular Hemoglobin 27.8 pg (27.0-33.0); Mean Corpuscular Volume 85.8 fL (80-95); Monocytes % 6.5; Neutrophils % 76.1; Platelet Count 382 x1000/uL (130-400); RBC 4.31 m/cumm (4.00-5.20); RBC Distribution Width 15.3 % (11.7-14.6); White Blood Cell Count 8.76 k/cumm (4.4-10.8)
[2019-07-20 10:10] LABS: COVID-19 RT-PCR Result Not Detected (NotDetected)
== END 2019-07-17 14:50 ==
LOC: LBN 14:30
PROVIDERS: PCP Internal Medicine; Visit Provider Nurse Practitioner Adult Health
DX: Z20.828 Contact with and (suspected) exposure to other viral communicable diseases (principal); Z11.59 Encounter for screening for other viral diseases; R50.9 Fever, unspecified
CPT/HCPCS: 87449; U0003; 85025

== ENCOUNTER 2019-07-28 11:46 | Outpatient (REF) | payer MEDICARE, MEDICAID, SELFPAY ==
[2019-07-29 13:50] LABS: Tacrolimus <2.0 ng/mL (See Note)
== END 2019-07-28 12:06 ==
LOC: LBN 11:46
PROVIDERS: PCP Internal Medicine; Visit Provider Nurse Practitioner Adult Health
DX: Z94.0 Kidney transplant status (principal); N18.6 End stage renal disease; Z51.81 Encounter for therapeutic drug level monitoring
CPT/HCPCS: 80197

== ENCOUNTER 2019-10-27 14:53 | Outpatient (REF) | payer MEDICARE, MEDICAID, SELFPAY ==
[2019-10-27 16:42] LABS: Abs Immature Grans 0.02 k/cumm (0.0-0.09); Absolute Basophil Count 0.02 k/cumm (0.0-0.2); Absolute Eosinophil Count 0.33 k/cumm (0.0-0.7); Absolute Lymphocyte Count 1.64 k/cumm (1.2-3.4); Absolute Monocyte Count 0.62 k/cumm (0.11-0.7); Absolute Neutrophil Count 3.44 k/cumm (1.2-6.7); Basophils % 0.3; Eosinophils % 5.4; HCT 38.8 % (36.0-46.0); HGB 12.3 g/dL (12.0-15.5); Immature Grans % 0.3 %; Mean Corp. HGB Concentration 31.7 g/dL (32.0-36.0); Mean Corpuscular Hemoglobin 27.2 pg (27.0-33.0); Mean Corpuscular Volume 85.8 fL (80-95); Mean Platelet Volume 9.5 fL (8.0-11.0); Monocytes % 10.2; Neutrophils % 56.8; Platelet Count 290 x1000/uL (130-400); RBC 4.52 m/cumm (4.00-5.20); RBC Distribution Width 15.9 % (11.7-14.6); White Blood Cell Count 6.07 k/cumm (4.4-10.8)
[2019-10-27 17:20] LABS: ESR 39 mm/hr (0-30)
[2019-10-27 17:23] LABS: Anion Gap 6.4 mmol/L (3-11); BUN 19 mg/dL (7-18); CO2 29.6 mmol/L (21.0-32.0); CREATININE 0.86 mg/dL (0.55-1.02); Calcium 8.3 mg/dL (8.5-10.1); Chloride 103 mmol/L (98-107); Glucose 120 mg/dL (74-106); Potassium 4.1 mmol/L (3.5-5.1); Sodium 139 mmol/L (136-145)
== END 2019-10-27 15:13 ==
LOC: LBN 14:53
PROVIDERS: PCP Internal Medicine; Visit Provider Nurse Practitioner Adult Health
DX: N18.9 Chronic kidney disease, unspecified (principal); N31.9 Neuromuscular dysfunction of bladder, unspecified; Z94.0 Kidney transplant status; Z22.39 Carrier of other specified bacterial diseases
CPT/HCPCS: 80048; 85652; 85025

== ENCOUNTER 2019-12-22 16:30 | Outpatient (REF) | payer MEDICARE, MEDICAID, SELFPAY ==
[2019-12-22 16:14] LABS: HCT 38.3 % (36.0-46.0); HGB 12.1 g/dL (11.2-15.7); MCH 27.7 pg (27.0-33.0); MCHC 31.6 % (32.0-36.0); MCV 87.6 fL (80-95); MPV 9.7 fL (8.0-11.0); Platelet Count 300 10^3/uL (130-400); RBC 4.37 10^6/uL (3.93-5.22); RDW 14.8 % (11.7-14.6); RDW-SD 47.9 fL; WBC 6.48 10^3/uL (4.4-10.8)
[2019-12-22 16:53] LABS: ALT 22 U/L (14-59); AST 19 U/L (15-37); Albumin 3.2 g/dL (3.4-5.0); Alkaline Phosphatase 92 U/L (46-116); Anion Gap 4.2 mmol/L (3-11); BUN 21 mg/dL (7-18); Bilirubin, Total 0.5 mg/dL (0.2-1.0); CO2 28.8 mmol/L (21.0-32.0); CREATININE 0.76 mg/dL (0.55-1.02); Chloride 107 mmol/L (98-107); Glucose 129 mg/dL (74-106); Potassium 4.2 mmol/L (3.5-5.1); Sodium 140 mmol/L (136-145); Total Protein 6.6 g/dL (6.4-8.2)
[2019-12-22 18:25] LABS: Calcium 8.3 mg/dL (8.5-10.1)
[2019-12-23 10:13] LABS: Hemoglobin A1C 5.3 % (3.8-5.6)
== END 2019-12-22 16:50 ==
LOC: LBN 16:30
PROVIDERS: PCP Internal Medicine; Visit Provider Nurse Practitioner Adult Health
DX: N18.9 Chronic kidney disease, unspecified (principal); Z94.0 Kidney transplant status; I10 Essential (primary) hypertension; E11.9 Type 2 diabetes mellitus without complications
CPT/HCPCS: 80053; 85027; 83036

== ENCOUNTER 2020-02-16 09:42 | Outpatient (REF) | payer MEDICARE, MEDICAID, SELFPAY ==
[2020-02-16 10:24] LABS: Abs Immature Grans 0.02 10^3/uL (0.0-0.06); Absolute Basophil Count 0.03 10^3/uL (0.0-0.2); Absolute Eosinophil Count 0.29 10^3/uL (0.0-0.7); Absolute Lymphocyte Count 1.62 10^3/uL (1.2-3.4); Absolute Monocyte Count 0.57 10^3/uL (0.1-0.8); Absolute Neutrophil Count 3.92 10^3/uL (1.2-6.7); Basophils % 0.5; Eosinophils % 4.5; HCT 36.3 % (36.0-46.0); HGB 11.8 g/dL (11.2-15.7); Immature Grans % 0.3; Lymphocytes % 25.1; MCH 28.1 pg (27.0-33.0); MCHC 32.5 % (32.0-36.0); MCV 86.4 fL (80-95); MPV 9.7 fL (8.0-11.0); Monocytes % 8.8; Neutrophils % 60.8; Nucleated RBC 0 %; Platelet Count 290 10^3/uL (130-400); RDW 14.5 % (11.7-14.6); RDW-SD 45.5 fL; WBC 6.45 10^3/uL (4.4-10.8)
[2020-02-16 14:03] LABS: C-Reactive Protein 2.32 mg/dL (0.0-0.3)
== END 2020-02-16 10:02 ==
LOC: LBN 09:42
PROVIDERS: PCP Internal Medicine; Visit Provider Nurse Practitioner Adult Health
DX: R68.89 Other general symptoms and signs (principal); R79.82 Elevated C-reactive protein (CRP)
CPT/HCPCS: 85025; 86140

== ENCOUNTER 2020-02-18 20:33 | Outpatient (CLI) | payer MEDICARE, MEDICAID, SELFPAY ==
--- NOTE | 2020-02-18 | DI.RAD_ITS ---
EXAM: XR CERVICAL SPINE COMP 4-5V CLINICAL HISTORY: INCREASED PAIN, FILMS 1 YEAR AGO SUGGESTIVE LYTIC LESIONS, ? MULTIPLE MYELOMA TECHNIQUE: 2D digital imaging was performed. COMPARISON: CR CERVICAL SP. LIMITED (TRAUMA) from 10/29/2010 CR CHEST 2 VIEWS PA,LAT from 01/22/2017 FINDINGS: Exam is limited in positioning as it was performed in a wheelchair. The bones appear osteoporotic. There are no gross lytic lesions. Lateral views are suboptimally positioned. No fracture is identif ied. There is mild degenerative subluxation. There are degenerative changes of the facet joints and mild degenerative disc changes. The craniocervical junction is not well profiled. Left-sided neura l foraminal narrowing is visible at C2-3 and C3-4 mainly secondary to facet encroachment. A vascular stent is noted near the left clavicle. Fibrotic changes are noted at the lung apices. IMPRESSION: Severely limited exam due to difficulty in patient positioning. There are degenerative changes mainl y of the facet joints in the upper to mid cervical region.
--- NOTE | 2020-02-18 | DI.RAD_ITS ---
EXAM: XR FEMUR LT CLINICAL HISTORY: INCREASED PAIN, FILMS 1 YEAR AGO SUGGESTIVE LYTIC LESIONS, ? MULTIPLE. TECHNIQUE: 2D digital imaging was performed. COMPARISON: 02/05/2019 FINDINGS: BONES: No acute fracture is present. No bony destructive lesion is seen. JOINTS: No dislocation present. Severe degenerative changes of the left hip, with a [id number] lainey earance. There is periarticular spurring, sclerosis and subchondral cyst formation. No significant change from the previous exam. the knee is not well profiled on the AP view but is unremarkable on the lateral view. SOFT TISSUE: Surgical clips in the left pelvis. Prominent vascular calcifications. IMPRESSION: Stable severe degenerative changes of the left hip. Other than degenerative subchondral cysts, no ly tic lesions are identified. DATA REPOSITORY: RADIATION DOSE DELIVERED:
--- NOTE | 2020-02-18 | DI.RAD_ITS ---
EXAM: XR PELVIS AP CLINICAL HISTORY: INCREASED PAIN, FILMS 1 YEAR AGO SUGGESTIVE LYTIC LESIONS, ? MULTIPLE TECHNIQUE: 2D digital imaging was performed. COMPARISON: CR XR HIP LT COMPLETE AP PELVIS from 02/05/2019 FINDINGS: Severe degenerative changes of the left hip are again noted, not significantly changed. There are mi nf-ej-biclnzws degenerative changes of the right hip. Surgical clips are seen in the pelvis. There are prominent vascular calcifications. There is a large amount of stool in the rectum. The sacrum a nd iliac crests are obscured by bowel gas. Other than degenerative subchondral cysts around the left hip, no lytic lesions are visible. IMPRESSION: Severe degenerative changes of the left hip.
== END 2020-02-18 20:53 ==
PROVIDERS: PCP Internal Medicine; Visit Provider Nurse Practitioner Adult Health
DX: M16.0 Bilateral primary osteoarthritis of hip (principal); M47.812 Spondylosis without myelopathy or radiculopathy, cervical region; M85.68 Other cyst of bone, other site
CPT/HCPCS: 73552; 72050; 72170

== ENCOUNTER → 2020-03-15 09:03 | Outpatient (BNVA) | payer MEDICARE, MEDICAID, SELFPAY | PROVIDERS: PCP Internal Medicine; Referring Provider Internal Medicine; Visit Provider Urology | DX: N31.8 Other neuromuscular dysfunction of bladder (principal); Z93.59 Other cystostomy status | CPT/HCPCS: 52000; 99212 ==

== ENCOUNTER 2020-05-11 01:02 | Outpatient (CLI) | payer MEDICARE, MEDICAID, SELFPAY ==
--- NOTE | 2020-05-11 12:30 | DI.CT_ITS ---
EXAM: CT ABDOMEN PELVIS W CLINICAL HISTORY: CONSTIPATION. TECHNIQUE: Imaging Protocol: Axial computed tomography images with coronal and sagittal reformatted images were created and reviewed CONTRAST MATERIAL: Intravenous: Omnipaque 100cc Oral: None COMPARISON: No exams were available for comparison FINDINGS: VISUALIZED LUNG BASES: There is mild infiltrate in the visualized left lung base-posterior basal segm ent left lower lobe. No pleural effusions.. ABDOMEN: There is no ascites. Moderate size hiatal hernia noted. LIVER: There are no obvious focal hepatic lesions evident . GALLBLADDER/BILIARY: A tiny density in the gallbladder lumen dependent wall region which may be a tin y gallstone or polyp. No gallbladder wall edema. CBD is not dilated. PANCREAS: No evidence of pancreatic mass nor dilatation of the pancreatic duct. SPLEEN: Spleen size is slightly prominent. Splenic and portal veins are patent. ADRENALS: There are no significant adrenal masses. KIDNEYS:Both kidneys are significantly atrophic. There is a small exophytic benign cysts off the lat eral aspect of the right kidney. The cortical mantle is thin bilaterally and there is some cortical calcification bilaterally, benign appearance. Transplant kidney is in the right side of the pelvis. Exhibits normal size. Transplant renal vein is patent inserts into the right iliac vein. There are no calculi nor hydronephrosis nor masses in the transplanted right kidney and cortical thickness is normal. ABDOMINAL AORTA: Abdominal aorta is not enlarged and there is no vswjoobyitahiij-osdc-jactig adenopat hy. ABDOMINAL WALL/GI: No evidence of significant anterior abdominal wall hernia. No bowel obstruction. PELVIS: GI: No evidence of appendicitis.Very redundant sigmoid.No diverticulitis evident. LYMPH NODES: There is no intrapelvic nor inguinal adenopathy. REPRODUCTIVE: Uterus and adnexal regions appear age-appropriate. URINARY BLADDER: Suprapubic catheter in place. The urinary bladder is not distended. OSSEOUS: Streaking in the subcutaneous tissue over the buttock but no deep ulcer and no obvious osteo myelitis. Advanced degenerative changes in the hips, left more so than right. No lytic osseous lesi ons identified.. IMPRESSION: 1. Both kidneys are symmetrically atrophic there is a normal appearing right pelvic transplant kidney which exhibits normal size and cortical thickness no hydronephrosis. No cysts or solid masses evide nt within the transplant kidney. No surrounding fluid. 2. There is a suprapubic catheter in place. 3. Mild infiltrate noted in left lung base. No pleural effusion. 4. Subcutaneous streaking left buttock, possibly early developing decubitus. No osteomyelitis. Advanced degenerative changes in the hips, more so on the left side. RADIATION DOSE DELIVERED: 1,114.08mGy.cm Total DLP DATA REPOSITORY: All CT scans at this facility are submitted to the National Radiology Data Registry (NRDR) Dose Index Registry (DIR) with the [employer] (A[employer]). RADIATION OPTIMIZATION: All CT scans at this facility use at least one of these dose optimization te chniques: automated exposure control; mA and/or kV adjustment per patient size (includes targeted exa ms where dose is matched to clinical indication); or iterative reconstruction.
== END 2020-05-11 01:22 ==
PROVIDERS: PCP Family Medicine; Visit Provider Nurse Practitioner Adult Health
DX: N26.1 Atrophy of kidney (terminal) (principal); R91.8 Other nonspecific abnormal finding of lung field; M16.0 Bilateral primary osteoarthritis of hip; K59.00 Constipation, unspecified; Z94.0 Kidney transplant status
CPT/HCPCS: 74177; 82565

== ENCOUNTER 2020-05-11 10:59 | Outpatient (REF) | payer MEDICARE, MEDICAID, SELFPAY ==
[2020-05-11 19:49] LABS: CREATININE 0.89 mg/dL (0.55-1.02)
== END 2020-05-11 11:19 ==
LOC: LBN 10:59
PROVIDERS: PCP Family Medicine; Visit Provider Nurse Practitioner Adult Health
DX: R79.89 Other specified abnormal findings of blood chemistry (principal)
CPT/HCPCS: 82565

== ENCOUNTER 2020-05-27 16:31 | Outpatient (REF) | payer MEDICARE, MEDICAID, SELFPAY ==
[2020-05-27 18:58] LABS: Anion Gap 7.4 mmol/L (3-11); BUN 23 mg/dL (7-18); CO2 26.6 mmol/L (21.0-32.0); CREATININE 0.8 mg/dL (0.55-1.02); Calcium 8.3 mg/dL (8.5-10.1); Chloride 100 mmol/L (98-107); Glucose 136 mg/dL (74-106); Potassium 4.1 mmol/L (3.5-5.1); Sodium 134 mmol/L (136-145)
== END 2020-05-27 16:51 ==
LOC: LBN 16:31
PROVIDERS: PCP Family Medicine; Visit Provider Family Medicine
DX: C90.00 Multiple myeloma not having achieved remission (principal); M89.9 Disorder of bone, unspecified; Z94.0 Kidney transplant status
CPT/HCPCS: 80048

== ENCOUNTER 2020-08-24 14:18 | Outpatient (REF) | payer MEDICARE, MEDICAID, SELFPAY ==
[2020-08-24 14:59] LABS: Abs Immature Grans 0.03 10^3/uL (0.0-0.06); Absolute Basophil Count 0.05 10^3/uL (0.0-0.2); Absolute Eosinophil Count 0.13 10^3/uL (0.0-0.7); Absolute Lymphocyte Count 1.37 10^3/uL (1.2-3.4); Absolute Monocyte Count 0.53 10^3/uL (0.1-0.8); Absolute Neutrophil Count 6.19 10^3/uL (1.2-6.7); Basophils % 0.6; Eosinophils % 1.6; HCT 39.8 % (36.0-46.0); HGB 12.5 g/dL (11.2-15.7); Immature Grans % 0.4; Lymphocytes % 16.5; MCH 27.4 pg (27.0-33.0); MCHC 31.4 % (32.0-36.0); MCV 87.3 fL (80-95); MPV 9.1 fL (8.0-11.0); Monocytes % 6.4; Neutrophils % 74.5; Nucleated RBC 0 %; Platelet Count 299 10^3/uL (130-400); RBC 4.56 10^6/uL (3.93-5.22); RDW 15.2 % (11.7-14.6); RDW-SD 48.5 fL
[2020-08-24 15:49] LABS: ALT 19 U/L (14-59); AST 17 U/L (15-37); Albumin 3.6 g/dL (3.4-5.0); Alkaline Phosphatase 89 U/L (46-116); Anion Gap 6.7 mmol/L (3-11); BUN 19 mg/dL (7-18); Bilirubin, Total 0.5 mg/dL (0.2-1.0); CO2 30.3 mmol/L (21.0-32.0); Calcium 8.6 mg/dL (8.5-10.1); Chloride 103 mmol/L (98-107); Estimated GFR 57.15 (mL/min/1.73m2); Glucose 180 mg/dL (74-106); Magnesium 1.9 mg/dL (1.8-2.4); Potassium 4.1 mmol/L (3.5-5.1); Sodium 140 mmol/L (136-145); Total Protein 7.6 g/dL (6.4-8.2); Uric Acid 4.5 mg/dL (2.6-6.0)
[2020-08-24 16:08] LABS: Cholesterol 201 mg/dL (<200)
[2020-08-25 13:58] LABS: Tacrolimus 3.6 ng/mL (See Note)
== END 2020-08-24 14:19 | disposition home or self-care (01) ==
LOC: LBN 14:18
PROVIDERS: PCP Family Medicine; Visit Provider Family Medicine
DX: Z94.0 Kidney transplant status (principal); Z51.81 Encounter for therapeutic drug level monitoring; I10 Essential (primary) hypertension; E11.9 Type 2 diabetes mellitus without complications; C90.00 Multiple myeloma not having achieved remission; N18.9 Chronic kidney disease, unspecified
CPT/HCPCS: 80053; 80197; 82465; 83735; 84100; 84550; 85025

== ENCOUNTER 2020-08-25 00:12 | Outpatient (REF) | payer MEDICARE, MEDICAID, SELFPAY ==
[2020-08-25 05:58] LABS: COMMENT (LAB VIEW ONLY) 96.52 mg/dL; PROTEIN 121.7 mg/dL; Prot/Crea Ur Ratio 1.26
[2020-08-25 06:01] LABS: Bilirubin Negative (Negative); Blood Large (Negative); Clarity Cloudy (Clear); Glucose Negative (Negative); Ketones Negative (Negative); Leukocyte Esterase Moderate (Negative); Nitrite Negative (Negative); Urobilinogen 0.2 EU/dL (Up TO 0.2)
[2020-08-25 06:09] LABS: WBC >50 HPF (0-5)
[2020-08-25 06:10] LABS: C & S Indicated? C&S Done As Ordered
== END 2020-08-25 00:13 | disposition home or self-care (01) ==
LOC: LBN 00:12
PROVIDERS: PCP Family Medicine; Visit Provider Family Medicine
DX: N18.9 Chronic kidney disease, unspecified (principal); I10 Essential (primary) hypertension; Z94.0 Kidney transplant status
CPT/HCPCS: 81003; 81015; 82565; 84156; 87086

== ENCOUNTER 2020-09-13 14:49 | Outpatient (REF) | payer MEDICARE, MEDICAID, SELFPAY ==
[2020-09-13 15:45] LABS: Abs Immature Grans 0.06 10^3/uL (0.0-0.06); Absolute Basophil Count 0.03 10^3/uL (0.0-0.2); Absolute Eosinophil Count 0.13 10^3/uL (0.0-0.7); Absolute Lymphocyte Count 1.51 10^3/uL (1.2-3.4); Absolute Monocyte Count 0.62 10^3/uL (0.1-0.8); Basophils % 0.4; Eosinophils % 1.7; HCT 33.9 % (36.0-46.0); HGB 10.7 g/dL (11.2-15.7); Immature Grans % 0.8; Lymphocytes % 19.2; MCH 27.4 pg (27.0-33.0); MCHC 31.6 % (32.0-36.0); MCV 86.9 fL (80-95); MPV 9.1 fL (8.0-11.0); Monocytes % 7.9; Nucleated RBC 0 %; Platelet Count 509 10^3/uL (130-400); RDW 15.9 % (11.7-14.6); RDW-SD 50.1 fL; WBC 7.85 10^3/uL (4.4-10.8)
[2020-09-13 15:49] LABS: Anion Gap 8.3 mmol/L (3-11); BUN 15 mg/dL (7-18); CO2 30.7 mmol/L (21.0-32.0); CREATININE 0.8 mg/dL (0.55-1.02); Calcium 8.7 mg/dL (8.5-10.1); Chloride 99 mmol/L (98-107); Glucose 97 mg/dL (74-106); Potassium 4.5 mmol/L (3.5-5.1); Sodium 138 mmol/L (136-145)
== END 2020-09-13 14:50 | disposition home or self-care (01) ==
LOC: LBN 14:49
PROVIDERS: PCP Family Medicine; Visit Provider Family Medicine
DX: Z94.0 Kidney transplant status (principal); E11.9 Type 2 diabetes mellitus without complications; I10 Essential (primary) hypertension; C90.00 Multiple myeloma not having achieved remission
CPT/HCPCS: 80048; 85025

== ENCOUNTER 2020-09-14 09:43 | Emergency (ER) | payer MEDICARE, MEDICAID, SELFPAY ==
[2020-09-14] VITALS (44 sets, daily range): BP systolic 112–136; BP diastolic 47–67; PULSE 83–98; RESP 13–30; TEMP 36.5; O2SAT 92–98
--- NOTE | 2020-09-14 09:30 | DI.CT_ITS ---
Exam(s) CT ABDOMEN PELVIS W EXAM: CT ABDOMEN PELVIS W CLINICAL HISTORY: GI bleed, Abd pain. TECHNIQUE: Imaging Protocol: Axial computed tomography images with coronal and sagittal reformatted images were created and reviewed CONTRAST MATERIAL: Intravenous: Omnipaque 100cc Oral: None COMPARISON: CT CT ABDOMEN PELVIS W from 05/11/2020 FINDINGS: VISUALIZED LUNG BASES: There is subtle ground-glass infiltrate in the anterior basal segment of the l eft lower lobe. Also mild increased markings in the posterior basal segments of both lower lobes. N o pleural effusions.. ABDOMEN: There is no ascites. LIVER: There are no focal hepatic lesions evident . GALLBLADDER/BILIARY: No obvious gallbladder pathology. CBD is not dilated. PANCREAS: No evidence of pancreatic mass nor peripancreatic fluid collection. Pancreatic duct diamet er is upper normal. SPLEEN: Spleen is not enlarged. No obvious intrasplenic lesions. Splenic and portal veins are paten t. ADRENALS: There are no significant adrenal masses. KIDNEYS:Both kidneys are again noted to be profoundly atrophic in symmetrical fashion. Some cortical calcification is noted in the thin remaining cortical mantle both kidneys. There are no calculi in the renal pelves nor in the nondilated ureters nor within the urinary bladder which is collapsed and contains a percutaneous suprapubic balloon tip catheter. There is a right pelvic transplant kidney in place. This exhibits normal size and cortical thickness . No evidence of thrombosis of this right pelvic kidney renal vein which enters the iliac vein. The re is no calculus nor hydronephrosis of this kidney. ABDOMINAL AORTA: Abdominal aorta is not enlarged. LYMPH NODES:There is no retroperitineal nor paraaortic adenopathy. ABDOMINAL WALL: No evidence of significant anterior abdominal wall hernia. GI: There are multiple fluid-filled bowel loops in the pelvis exhibiting upper normal diameters. Col on is not collapsed. Appendix appears unremarkable. PELVIS: GI: No evidence of appendicitis.No evidence of sigmoid diverticulitis. LYMPH NODES: There is no intrapelvic nor inguinal adenopathy. REPRODUCTIVE: Uterus size is age-appropriate. There are no ovarian masses noted. There is an abnormal collection in the lower left pelvis, lateral to and above the level of the rectu m and extending up the presacral region. There is air-gas at this level which is extra luminal and s treaking, these findings consistent with infectious etiology. Inferiorly extends below the level of the piriformis muscle. URINARY BLADDER: Collapsed. Suprapubic catheter in place OSSEOUS: Severe advanced degenerative changes in the left hip. There are erosions on the iliac side of the left SI joint and what appeared to be combination of erosions and degenerative subarticular cy sts on the iliac side of the opposite-right SI joint. IMPRESSION: 1. Symmetrically atrophic bilateral [place] kidneys with right pelvic transplant kidney (which appears unremarkable). 2. There is abnormal streaking and gas and small amount of fluid in the lower left pelvis as describe d above at and above the left para rectal region, highly suspicious for infectious process/abscess, t his despite only minimal associated fluid.. 3. There is ground-glass infiltrate in the anterior basal segment of the left lower lobe incidentally noted. No pleural effusions 4. Abnormal osseous findings at the level of the SI joints as described above. Also severe degenerat [place] changes in the left hip. Milder degenerative changes in the right hip. Findings discussed by phone with ER provider RADIATION DOSE DELIVERED: 1,475.11mGy.cm Total DLP DATA REPOSITORY: All CT scans at this facility are submitted to the National Radiology Data Registry (NRDR) Dose Index Registry (DIR) with the [employer] (ACR). RADIATION OPTIMIZATION: All CT scans at this facility use at least one of these dose optimization te chniques: automated exposure control; mA and/or kV adjustment per patient size (includes targeted exa ms where dose is matched to clinical indication); or iterative reconstruction.
--- NOTE | 2020-09-14 09:45 | ED.GENADUL_ITS ---
Discharge Plan Disposition Patient Disposition: [facility] Condition: Stable Discharge Details Clinical Impression: Candice-rectal abscess Primary Care Provider: Randall Ling ED Provider: Neda James Home Meds and New Rx's Prescriptions: No Action guaifenesin 100 mg/5 mL liquid 200 mg PO Q4H PRNRF: 0 hyoscyamine sulfate 0.125 mg tablet,disintegrating 0.25 mg PO Q4H PRNRF: 0 tramadol 50 mg tablet 50 mg PO TID RF: 0 levetiracetam [Keppra] 750 MG tablet 1,500 mg PO BID RF: 0 lidocaine [Aspercreme (lidocaine)] 4 % Adhesive Patch,Medicated 1 patch TOPICAL DAILY RF: 0 acetic acid 0.25 % Solution 50 ml IRRIGATION HS RF: 0 sertraline 50 mg tablet 75 mg PO DAILY RF: 0 Myrbetriq 50 mg tablet extended release 24 hr 50 mg PO DAILY RF: 0 Liquid Protein Fortifier 1 gram-4 kcal/6 mL Liquid 30 ml PO DAILY RF: 0 d-mannose 500 mg Capsule 2,000 mg PO DAILY RF: 0 cephalexin 500 mg capsule 500 mg PO BID RF: 0 morphine 15 mg tablet extended release 15 mg PO BID RF: 0 Biofreeze (menthol) 4 % Gel 1 applic TOPICAL TID RF: 0 mycophenolate mofetil 250 mg Capsule 250 mg PO BID RF: 0 prednisone 5 mg Tablet 5 mg PO Q OTHER DAY RF: 0 magnesium oxide 400 mg Capsule 400 mg PO TID RF: 0 Central-Maira L Tablet 1 tab PO DAILY RF: 0 tacrolimus 0.5 mg Capsule 2 mg PO QAM Qty: 0 RF: 0 tacrolimus 0.5 mg Capsule 1 mg PO QPM Qty: 0 RF: 0 furosemide 20 mg Tablet 20 mg PO BID Qty: 0 RF: 0 venlafaxine 75 mg Tablet 75 mg PO TID RF: 0 acetaminophen [Mapap Extra Strength] 500 mg Tablet 1,000 mg PO Q8H PRN PRNQty: 0 RF: 0 magnesium hydroxide [Milk of Magnesia] 400 mg/5 mL Suspension 30 ml PO BID PRN PRNQty: 0 RF: 0 bisacodyl 10 mg Suppository 10 mg WA BID PRN PRNQty: 0 RF: 0 docusate sodium [Colace] 100 mg Capsule 100 mg PO BID Qty: 0 RF: 0 bisacodyl 5 mg Tablet,Delayed Release (Dr/Ec) 5 mg PO DAILY PRN PRNQty: 0 RF: 0 sennosides [Senokot] 8.6 mg Tablet 1 tab PO BID PRN PRNQty: 0 RF: 0 Medical Decision Making 55-year-old female presents to the ER via EMS with chief complaint of bright red bleeding from rectum which began this morning. Patient also endorses some lower abdominal pain. Does have a history of external hemorrhoids. Denies any vomiting no fever no chills. Patient presents from health and rehab. Patient is a dialysis patient. She has a past medical history of kidney transplant, neurogenic bladder, seizure disorder, CHF, chronic kidney disease, hyperparathyroidism, osteoporosis, peripheral neuropathy, traumatic brain injury. Labs show no evidence for leukocytosis, white blood cell count is 7.16 RBCs 3.92 hemoglobin 10.6 hematocrit 33.7, MCV HC is 31.5% RDW 16.0% platelet count 430 PT is 10.4 INR 1.0, sodium 139, potassium 3.7, anion gap 7.5, BUN is 14 cre atinine 0.9 GFR is greater than 60, glucose 125, albumin is 2.9 Covid test is negative patient is ABO Rh a positive negative antibody screen CT abd/Pelvis W: IMPRESSION: 1. Symmetrically atrophic bilateral [place] kidneys with right pelvic transplant kidney (which appears unremarkable). 2. There is abnormal streaking and gas and small amount of fluid in the lower left pelvis as described above at and above the left para rectal region, highly suspicious for infectious process/abscess, this despite only minimal associated fluid.. 3. There is ground-glass infiltrate in the anterior basal segment of the left lower lobe incidentally noted. No pleural effusions 4. Abnormal osseous findings at the level of the SI joints as described above. Also severe degenerative changes in the left hip. Milder degenerative changes in the right hip. 1145: Call made to [facility] regarding consult and possible transfer, images pushed. Discussed CT results with patient who verbalizes understanding, patient is requesting to eat instructed to hold off until I speak with [facility]. 1157: [facility] at capacity and cannot accept this patient at this time, Will consult with our surgery team and [facility]. 1254: Spoke with Lizbeth Bridges with surgery, it is deemed patient is not a candidate for surgery here at this time. 1254: Call made to [facility] transfer center, They state 24-48 hours for non-emergent cases. 1316: Spoke with Dr. Heller with Surgery at [facility], Dr. Heller agreed to accept patient for transfer to ED. Spoke with ED MD, Dr. Stacy in ED. Will arrange for transfer. Discussed plan of care with patient and patient's power of supervisor [employer] who is at the bedside they both verbalized understanding. Instructed for patient to continue being n.p.o. at this time. HPI General Mode of arrival: EMS . Date/Time Provider Initiated Documentation: 09/14/20 09:44 . Limitations to Documentation: no limitations . Information obtained by: EMS . HPI Narrative: 55-year-old female presents to the ER via EMS from rehab with chief complaint of bright red bleeding from rectum which began this morning. Patient also endorses some lower abdominal pain. Does have a history of external hemorrhoids. Denies any vomiting no fever no chills. Patient presents from health and rehab. She has a past medical history of kidney transplant, neurogenic bladder, seizure disorder, CHF, chronic kidney disease, hyperparathyroidism, osteoporosis, peripheral neuropathy, traumatic brain injury. Related Data Home Medications Medication Instructions Recorded Confirmed levetiracetam [Keppra] 1,500 mg PO BID 08/15/13 03/15/20 mycophenolate mofetil 250 mg PO BID 10/19/18 09/14/20 prednisone 5 mg PO Q OTHER DAY 10/19/18 09/14/20 Central-Maria L 1 tab PO DAILY 10/29/18 09/14/20 magnesium oxide 400 mg PO TID 10/29/18 09/14/20 furosemide 20 mg PO BID #0 tab 11/04/18 09/14/20 tacrolimus 1 mg PO QPM #0 cap 11/04/18 09/14/20 tacrolimus 2 mg PO QAM #0 cap 11/04/18 09/14/20 venlafaxine 75 mg PO TID 02/05/19 09/14/20 acetaminophen [Mapap Extra 1,000 mg PO Q8H PRN PRN #0 tab 02/11/19 09/14/20 Strength] bisacodyl 5 mg PO DAILY PRN PRN #0 tab 02/11/19 09/14/20 bisacodyl 10 mg WA BID PRN PRN #0 ea 02/11/19 09/14/20 docusate sodium [Colace] 100 mg PO BID #0 cap 02/11/19 09/14/20 magnesium hydroxide [Milk of 30 ml PO BID PRN PRN #0 ml 02/11/19 09/14/20 Magnesia] sennosides [Senokot] 1 tab PO BID PRN PRN #0 tab 02/11/19 09/14/20 guaifenesin 100 mg/5 mL oral liquid 200 mg PO Q4H PRN 03/15/20 09/14/20 hyoscyamine sulfate 0.125 mg 0.25 mg PO Q4H PRN tab 03/15/20 09/14/20 disintegrating tablet tramadol 50 mg tablet 50 mg PO TID tab 03/15/20 09/14/20 acetic acid 50 ml IRRIGATION HS 09/14/20 09/14/20 cephalexin 500 mg PO BID 09/14/20 09/14/20 d-mannose 2,000 mg PO DAILY 09/14/20 09/14/20 lidocaine [Aspercreme (lidocaine)] 1 patch TOPICAL DAILY 09/14/20 09/14/20 menthol [Biofreeze (menthol)] 1 applic TOPICAL TID 09/14/20 09/14/20 mirabegron [Myrbetriq] 50 mg PO DAILY 09/14/20 09/14/20 morphine 15 mg PO BID 09/14/20 09/14/20 protein hydrolysate,milk [Liquid 30 ml PO DAILY 09/14/20 09/14/20 Protein Fortifier] sertraline 75 mg PO DAILY 09/14/20 09/14/20 Previous Rx's Medication Instructions Recorded furosemide 20 mg PO BID #0 tab 11/04/18 tacrolimus 1 mg PO QPM #0 cap 11/04/18 tacrolimus 2 mg PO QAM #0 cap 11/04/18 acetaminophen [Mapap Extra 1,000 mg PO Q8H PRN PRN #0 tab 02/11/19 Strength] bisacodyl 5 mg PO DAILY PRN PRN #0 tab 02/11/19 bisacodyl 10 mg WA BID PRN PRN #0 ea 02/11/19 docusate sodium [Colace] 100 mg PO BID #0 cap 02/11/19 magnesium hydroxide [Milk of 30 ml PO BID PRN PRN #0 ml 02/11/19 Magnesia] sennosides [Senokot] 1 tab PO BID PRN PRN #0 tab 02/11/19 Allergies Allergy/AdvReac Type Severity Reaction Status Date / Time codeine Allergy Unverified 02/05/19 07:42 divalproex sodium Allergy Unverified 02/05/19 07:42 [From Depakote] povidone-iodine AdvReac Skin Rash Unverified 02/05/19 07:42 [From Betadine] soap [From Betadine] AdvReac Skin Rash Unverified 02/05/19 07:42 General AD: 3 Review of Systems Narrative: Constitutional: Negative for weight loss, alert and oriented, well groomed, normal body habitus, appears anxious and tearful. HEENT: Denies trauma, headaches, blurry vision, nasal discharge, sore throat, trouble swallowing. Chest: Denies chest pain, palpitations, irregular rhythm, hypertension. Respiratory: Denies Shortness of breath, cough, hemoptysis. GI: Denies nausea, vomiting, diarrhea, constipation. Positive abdominal pain. Positive Bright red rectal bleeding. : Denies dysuria, hematuria, flank pain, does have a indwelling Suprapubic Noriega catheter. Kidney transplant patient. Neuro: Denies dizziness, blurry vision, weakness, syncope, headache or facial numbness. Hematologic: Denies easy bruising, intolerance to heat or cold, hair loss. [facility] Medical History (Updated 09/14/20 @ 13:32 by Neda James) Chronic anticoagulation Chronic kidney disease Convulsions Hyperparathyroidism Neurogenic bladder Osteoporosis Peripheral neuropathy Protein S deficiency TBI (traumatic brain injury) Surgical History Colonoscopy - [facility] (02/11/15) INO MERINO Fistula creation Renal Transplant Social History Smoking/Tobacco Use Status: Never Smoking risk assessment performed?: Yes Alcohol Intake: never Drug use: Never Substance use type: does not use Do you feel safe at home: Yes Do you feel safe in your relationship?: Yes Additional Social history: Lives at [place] [facility] Exam Narrative Exam Narrative: Constitutional: Alert and oriented x3. Appears stated age. Normal body habitus. Head: Normocephalic, no trauma. Eyes: Pupils PERRLA, Red reflex noted, EOM's intact. Eyelids symmetrical without lesions, discharge, or swelling. ENT: Bilateral TM's WNL, External ear normal to inspection, no mastoid TTP, swelling, or erythema, Nasal turbinates WNL, no nasal discharge. Normal dentition, Posterior pharynx WNL, no exudate. Chest: RRR, Normal S1, S2, distal pulses intact. Resp: Lungs clear to auscultation bilaterally, no wheezes, rales, or rhonchi. Abdomen: Soft tender to palpation left and right lower quadrant, does have a indwelling suprapubic Noriega catheter. 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 Skin: No suspicious rashes or lesions. Capillary refill less than 2 sec. Neurologic: No focal neuro? deficits. Alert and oriented x 3. Hematologic/Lymphatic: No ecchymosis, no lymphadenopathy.
[2020-09-14] MEDS: Normal Saline Flush 10 ML SYR IVP (09:50)
[2020-09-14 10:17] LABS: Abs Immature Grans 0.04 10^3/uL (0.0-0.06); Absolute Basophil Count 0.05 10^3/uL (0.0-0.2); Absolute Eosinophil Count 0.11 10^3/uL (0.0-0.7); Absolute Lymphocyte Count 1.54 10^3/uL (1.2-3.4); Absolute Monocyte Count 0.63 10^3/uL (0.1-0.8); Absolute Neutrophil Count 4.79 10^3/uL (1.2-6.7); Basophils % 0.7; Eosinophils % 1.5; HCT 33.7 % (36.0-46.0); HGB 10.6 g/dL (11.2-15.7); Immature Grans % 0.6; Lymphocytes % 21.5; MCHC 31.5 % (32.0-36.0); MPV 8.5 fL (8.0-11.0); Monocytes % 8.8; Neutrophils % 66.9; Nucleated RBC 0 %; Platelet Count 437 10^3/uL (130-400); RBC 3.92 10^6/uL (3.93-5.22); RDW-SD 49.7 fL; WBC 7.16 10^3/uL (4.4-10.8)
[2020-09-14 10:38] LABS: Prothrombin Time 10.4 sec (9.3-11.0)
[2020-09-14 10:56] LABS: ALT 16 U/L (14-59); AST 16 U/L (15-37); Albumin 2.9 g/dL (3.4-5.0); Alkaline Phosphatase 80 U/L (46-116); Anion Gap 7.5 mmol/L (3-11); BUN 14 mg/dL (7-18); Bilirubin, Total 0.3 mg/dL (0.2-1.0); CO2 30.5 mmol/L (21.0-32.0); CREATININE 0.9 mg/dL (0.55-1.02); Chloride 101 mmol/L (98-107); Glucose 125 mg/dL (74-106); Magnesium 2.1 mg/dL (1.8-2.4); Potassium 3.7 mmol/L (3.5-5.1); Sodium 139 mmol/L (136-145)
[2020-09-14] MEDS: Omnipaque 350 MG/ML 100 ML BTL IJ (10:58)
[2020-09-14] MEDS: Normal Saline - Diluent 50 ML VIAL IV (10:58)
[2020-09-14] MEDS: PIPERACILLIN/TAZO 4.5 GM in Normal Saline 100 ML IVPB (12:50)
[2020-09-14 13:22] LABS: COVID-19 PCR Negative (Negative)
== END 2020-09-14 14:18 ==
PROVIDERS: Emergency Provider Registered Nurse Emergency; PCP Family Medicine
DX: K61.1 Rectal abscess (principal)
CPT/HCPCS: 36415; 80053; 86850; 86900; 86901; 87040; 87635; 96365; 99285; 74177; 83735; 85025; 85610; J2543; J3490

== ENCOUNTER 2020-09-24 17:36 | Outpatient (REF) | payer MEDICARE, MEDICAID, SELFPAY ==
[2020-09-26 13:29] LABS: Tacrolimus 4.1 ng/mL (See Note)
== END 2020-09-24 17:37 | disposition home or self-care (01) ==
LOC: LBN 17:36
PROVIDERS: PCP Family Medicine; Visit Provider Family Medicine
DX: Z94.0 Kidney transplant status (principal); I10 Essential (primary) hypertension; C90.00 Multiple myeloma not having achieved remission
CPT/HCPCS: 80197

== ENCOUNTER 2020-10-28 14:35 | Outpatient (REF) | payer MEDICARE, MEDICAID, SELFPAY ==
[2020-11-02 14:02] LABS: Tacrolimus 6.3 ng/mL (See Note)
== END 2020-10-28 14:36 | disposition home or self-care (01) ==
LOC: LBN 14:35
PROVIDERS: PCP Family Medicine; Visit Provider Family Medicine
DX: Z94.0 Kidney transplant status (principal); Z51.81 Encounter for therapeutic drug level monitoring
CPT/HCPCS: 80197

== ENCOUNTER 2020-11-05 19:28 | Outpatient (REF) | payer MEDICARE, MEDICAID, SELFPAY ==
[2020-11-05 19:42] LABS: Abs Immature Grans 0.04 10^3/uL (0.0-0.06); Absolute Basophil Count 0.04 10^3/uL (0.0-0.2); Absolute Eosinophil Count 0.07 10^3/uL (0.0-0.7); Absolute Lymphocyte Count 1.53 10^3/uL (1.2-3.4); Absolute Monocyte Count 0.46 10^3/uL (0.1-0.8); Absolute Neutrophil Count 5.24 10^3/uL (1.2-6.7); Basophils % 0.5; Eosinophils % 0.9; HCT 33.4 % (36.0-46.0); HGB 10.4 g/dL (11.2-15.7); Immature Grans % 0.5; Lymphocytes % 20.7; MCH 26.3 pg (27.0-33.0); MCHC 31.1 % (32.0-36.0); MCV 84.6 fL (80-95); MPV 8.9 fL (8.0-11.0); Monocytes % 6.2; Neutrophils % 71.2; Nucleated RBC 0 %; Platelet Count 394 10^3/uL (130-400); RBC 3.95 10^6/uL (3.93-5.22); RDW 16.2 % (11.7-14.6); RDW-SD 49.8 fL; WBC 7.38 10^3/uL (4.4-10.8)
== END 2020-11-05 19:29 | disposition home or self-care (01) ==
LOC: LBN 19:28
PROVIDERS: PCP Family Medicine; Visit Provider Family Medicine
DX: K61.1 Rectal abscess (principal)
CPT/HCPCS: 85025

== ENCOUNTER → 2020-11-08 09:23 | Outpatient (BNVA) | payer MEDICARE, MEDICAID, SELFPAY | PROVIDERS: PCP Family Medicine; Referring Provider Family Medicine; Visit Provider Nurse Practitioner Gerontology | DX: N31.8 Other neuromuscular dysfunction of bladder (principal); K59.00 Constipation, unspecified; Z93.59 Other cystostomy status; Z79.899 Other long term (current) drug therapy | CPT/HCPCS: 99214 ==

== ENCOUNTER 2020-11-17 09:40 | Emergency (ER) | payer MEDICARE, MEDICAID, SELFPAY ==
[2020-11-17 09:39] VITALS: BP 157/56; PULSE 97; TEMP 37; O2SAT 95
--- NOTE | 2020-11-17 09:45 | DI.CT_ITS ---
Exam(s) CT ABDOMEN PELVIS WO EXAM: CT ABDOMEN PELVIS WO CLINICAL HISTORY: hx of rectal abscess, abd pain, renal transplant. TECHNIQUE: Imaging Protocol: Axial computed tomography images with coronal and sagittal reformatted images were created and reviewed CONTRAST MATERIAL: Intravenous: none Oral: None COMPARISON: CT CT ABDOMEN PELVIS W from 09/14/2020 FINDINGS: VISUALIZED LUNG BASES: Mild increased markings left lung base. Cardiomegaly noted. No pericardial e ffusion.. ABDOMEN: There is no ascites. LIVER: There are no obvious focal hepatic lesions evident of this noninfused study. GALLBLADDER/BILIARY: Gallbladder surgically absent. CBD is not dilated. PANCREAS: No evidence of pancreatic mass nor dilatation of the pancreatic duct. SPLEEN: Mild splenomegaly. ADRENALS: There are no significant adrenal masses. KIDNEYS:Both [place] kidneys are again noted to be symmetrically atrophic in this patient who has a tr ansplant kidney in the right pelvis. No solid renal masses evident. No hydronephrosis.. The size o f the right pelvic transplant kidney is normal. It does not contain cysts nor solid masses nor calcu li. ABDOMINAL AORTA: Abdominal aorta is not enlarged. LYMPH NODES: There is no retroperitoneal nor paraaortic adenopathy. ABDOMINAL WALL: There is anterior abdominal wall hernia in the midline low infraumbilical here. This appears to contain a bowel loop. GI: In the low left pelvis previously described abscess is again noted. This has increased in size a nd extends from just anterior to the coccyx 2 the acetabulum for measurement of 12 cm. There is also air within abscess cavity in the presacral region. PELVIS: LYMPH NODES: There is no intrapelvic nor inguinal adenopathy. GI: No evidence of appendicitis.No evidence of sigmoid diverticulitis. URINARY BLADDER: Suprapubic catheter again noted in the urinary bladder. Bladder is not distended.. REPRODUCTIVE: Unremarkable OSSEOUS: Severe advanced osteoarthritic degenerative changes are again noted in the left hip. The ab ove described abscess reaches the inner aspect of the acetabulum but there does not appear to be evid ence of osteomyelitis. IMPRESSION: 1. Compared to the prior CT scan of 09/14/2020 the previously described abscess in the left para rect al region has increased in size. Presently extending from just anterior to the coccyx to the left hi p acetabulum and also exhibiting a presacral component measuring 6.4 x 5.4 cm. 2. Advanced degenerative changes in the left hip again noted. No obvious osteomyelitis. Previously described sacroiliac findings are again noted. 3. Symmetrically atrophic bilateral [place] kidneys with right pelvic transplant kidney again noted. Findings discussed by phone with ER provider. RADIATION DOSE DELIVERED: 1,029.4mGy.cm Total DLP DATA REPOSITORY: All CT scans at this facility are submitted to the National Radiology Data Registry (NRDR) Dose Index Registry (DIR) with the [employer] (ACR). RADIATION OPTIMIZATION: All CT scans at this facility use at least one of these dose optimization te chniques: automated exposure control; mA and/or kV adjustment per patient size (includes targeted exa ms where dose is matched to clinical indication); or iterative reconstruction.
--- NOTE | 2020-11-17 09:45 | ED.GENADUL_ITS ---
Discharge Plan Discharge Details Chief Complaint: GI Bleed Primary Care Provider: Randall Ling ED Provider: Tiaan Mayorga Home Meds and New Rx's Prescriptions: No Action guaifenesin 100 mg/5 mL liquid 200 mg PO Q4H PRNRF: 0 hyoscyamine sulfate 0.125 mg tablet,disintegrating 0.25 mg PO Q4H PRNRF: 0 tramadol 50 mg tablet 100 mg PO BID RF: 0 levetiracetam [Keppra] 750 MG tablet 1,500 mg PO BID RF: 0 lidocaine [Aspercreme (lidocaine)] 4 % Adhesive Patch,Medicated 1 patch TOPICAL DAILY RF: 0 acetic acid 0.25 % Solution 50 ml IRRIGATION HS RF: 0 Myrbetriq 50 mg tablet extended release 24 hr 50 mg PO DAILY RF: 0 Liquid Protein Fortifier 1 gram-4 kcal/6 mL Liquid 30 ml PO DAILY RF: 0 d-mannose 500 mg Capsule 2,000 mg PO DAILY RF: 0 morphine 15 mg tablet extended release 15 mg PO BID RF: 0 Biofreeze (menthol) 4 % Gel 1 applic TOPICAL TID RF: 0 sertraline 50 mg tablet 125 mg PO DAILY RF: 0 mycophenolate mofetil 250 mg Capsule 250 mg PO BID RF: 0 prednisone 5 mg Tablet 5 mg PO Q OTHER DAY RF: 0 magnesium oxide 400 mg Capsule 400 mg PO TID RF: 0 Central-Maria L Tablet 1 tab PO DAILY RF: 0 tacrolimus 0.5 mg Capsule 2 mg PO QAM Qty: 0 RF: 0 furosemide 20 mg Tablet 20 mg PO BID Qty: 0 RF: 0 acetaminophen [Mapap Extra Strength] 500 mg Tablet 1,000 mg PO Q8H PRN PRNQty: 0 RF: 0 magnesium hydroxide [Milk of Magnesia] 400 mg/5 mL Suspension 30 ml PO BID PRN PRNQty: 0 RF: 0 bisacodyl 10 mg Suppository 10 mg [place] BID PRN PRNQty: 0 RF: 0 docusate sodium [Colace] 100 mg Capsule 100 mg PO BID Qty: 0 RF: 0 bisacodyl 5 mg Tablet,Delayed Release (Dr/Ec) 5 mg PO DAILY PRN PRNQty: 0 RF: 0 sennosides [Senokot] 8.6 mg Tablet 1 tab PO BID PRN PRNQty: 0 RF: 0 nystatin 100,000 unit/gram cream 100,000 applic TOPICAL PRN PRNRF: 0 polyethylene glycol 3350 17 gram/dose Powder 17 g PO DAILY PRNRF: 0 tacrolimus 0.5 mg capsule 2 mg PO BID RF: 0 cyclobenzaprine 5 mg Tablet 5 mg PO Q4H RF: 0 Discharge Data Discharge Date/Time-TO BE ENTERED AT DEPARTURE: 11/17/20 16:[address] abdomen and pelvis discussed with Dr. Jasso, radiologist with large perirectal abscess and a bowel containing incisional hernia which was easily reduced on my evaluation, no indication for incarcerated bowel Urinalysis does show greater than 50 white blood cells and patient had a ominous appearing urine specimen with presence therefore Zosyn will cover likely both the perirectal abscess and the urinary tract infection Patient does not meet sepsis criteria she does have an elevated lactate, however no leukocytosis or tachycardia noted Patient given Zosyn, IV antibiotics for urinary tract infection and perirectal abscess, she is remained stable throughout this encounter Case discussed with Dr. Mancia, surgery and we do not have the capability except patient for surgical services secondary to her comorbidities [facility] initially and they do not have any capacity to take this patient, however they were going to discuss with interventional radiology about potentially performing intervention and then transferring patient back, however as we do not have any beds, this will likely not be in the best interest of this patient [facility] was consulted at approximately 1300, I did call [facility] again [phone] and knee do not have a decision on whether or not they are able to accept this patient, pending discussion with surgeon and possible transfer Patient will likely need surgical intervention given the severity of the perirectal abscess versus interventional radiology at the discretion of the transferring facility 4 mg of morphine was administered for pain control Diagnostic labs are reassuring There is no obvious GI bleed Lactate mildly elevated at 2.2, patient depressed suspicion for sepsis, no leukocytosis, afebrile Patient was accepted in transport to [facility] by Dr. Storey, surgery Patient is pending transport to the emergency room at this time, she is remained stable throughout this encounter and n.p.o. Donnie renal 1 Neda Rivera aware patient is still in the emergency room, pending transfer to [facility], patient has remained stable throughout the entirety of this evaluation I spent greater than 1 hour attempting to initiate placement to tertiary care facility capable of handling this patient's comorbidities HPI General Mode of arrival: ambulatory . Date/Time Provider Initiated Documentation: 11/17/20 09:45 . Limitations to Documentation: no limitations . Information obtained by: patient . HPI Narrative: This 55-year-old female with history of TBI, end-stage renal disease status. Renal transplant at [facility] 9 years ago immunosuppressed on CellCept, tacrolimus, and prednisone presents with report of rectal bleeding and abdominal pain consistent with patient's prior perirectal abscess which was reportedly evaluated at [facility], patient was transferred for colorectal surgery reportedly. Per the notes, surgery actually drained the abscess after performing digital rectal exam and patient was placed on Augmentin and discharged home several days later. Her immunosuppressive's were held for several days reportedly. Patient states she is in mild lower abdominal pain. She denies any chest pain or shortness of breath. She denies nausea, vomiting, diarrhea. She felt fine yesterday and even this morning until she noted the drainage. She has not had rigors/chills, or known fever. She denies any additional complaints at this time. She has not had surgery for her perirectal abscess reportedly. Related Data Home Medications Medication Instructions Recorded Confirmed levetiracetam [Keppra] 1,500 mg PO BID 08/15/13 11/17/20 mycophenolate mofetil 250 mg PO BID 10/19/18 11/17/20 prednisone 5 mg PO Q OTHER DAY 10/19/18 11/17/20 Central-Maria L 1 tab PO DAILY 10/29/18 11/08/20 magnesium oxide 400 mg PO TID 10/29/18 11/17/20 furosemide 20 mg PO BID #0 tab 11/04/18 11/17/20 tacrolimus 2 mg PO QAM #0 cap 11/04/18 11/08/20 acetaminophen [Mapap Extra 1,000 mg PO Q8H PRN PRN #0 tab 02/11/19 11/17/20 Strength] bisacodyl 5 mg PO DAILY PRN PRN #0 tab 02/11/19 11/17/20 bisacodyl 10 mg [place] BID PRN PRN #0 ea 02/11/19 11/17/20 docusate sodium [Colace] 100 mg PO BID #0 cap 02/11/19 11/17/20 magnesium hydroxide [Milk of 30 ml PO BID PRN PRN #0 ml 02/11/19 11/08/20 Magnesia] sennosides [Senokot] 1 tab PO BID PRN PRN #0 tab 02/11/19 11/08/20 guaifenesin 100 mg/5 mL oral liquid 200 mg PO Q4H PRN 03/15/20 11/08/20 hyoscyamine sulfate 0.125 mg 0.25 mg PO Q4H PRN tab 03/15/20 11/17/20 disintegrating tablet tramadol 50 mg tablet 100 mg PO BID tab 03/15/20 11/08/20 acetic acid 50 ml IRRIGATION HS 09/14/20 11/17/20 d-mannose 2,000 mg PO DAILY 09/14/20 11/17/20 lidocaine [Aspercreme (lidocaine)] 1 patch TOPICAL DAILY 09/14/20 11/08/20 menthol [Biofreeze (menthol)] 1 applic TOPICAL TID 09/14/20 11/17/20 mirabegron [Myrbetriq] 50 mg PO DAILY 09/14/20 11/17/20 morphine 15 mg PO BID 09/14/20 11/17/20 protein hydrolysate,milk [Liquid 30 ml PO DAILY 09/14/20 11/08/20 Protein Fortifier] sertraline 50 mg tablet 125 mg PO DAILY tab 11/08/20 11/17/20 cyclobenzaprine 5 mg PO Q4H 11/17/20 11/17/20 nystatin 100,000 applic TOPICAL PRN PRN 11/17/20 11/17/20 polyethylene glycol 3350 17 g PO DAILY PRN 11/17/20 11/17/20 tacrolimus 2 mg PO BID 11/17/20 11/17/20 Previous Rx's Medication Instructions Recorded furosemide 20 mg PO BID #0 tab 11/04/18 tacrolimus 2 mg PO QAM #0 cap 11/04/18 acetaminophen [Mapap Extra 1,000 mg PO Q8H PRN PRN #0 tab 02/11/19 Strength] bisacodyl 5 mg PO DAILY PRN PRN #0 tab 02/11/19 bisacodyl 10 mg KY BID PRN PRN #0 ea 02/11/19 docusate sodium [Colace] 100 mg PO BID #0 cap 02/11/19 magnesium hydroxide [Milk of 30 ml PO BID PRN PRN #0 ml 02/11/19 Magnesia] sennosides [Senokot] 1 tab PO BID PRN PRN #0 tab 02/11/19 Allergies Allergy/AdvReac Type Severity Reaction Status Date / Time codeine Allergy Unverified 11/17/20 12:09 divalproex sodium Allergy Unverified 11/17/20 12:09 [From Depakote] povidone-iodine AdvReac Skin Rash Unverified 11/17/20 12:09 [From Betadine] soap [From Betadine] AdvReac Skin Rash Unverified 11/17/20 12:09 General Stated Complaint: GI Bleed AD: 2 Review of Systems All systems reviewed & are unremarkable except as noted in HPI and below PFSH Medical History (Updated 09/14/20 @ 13:32 by Neda James) Chronic anticoagulation Chronic kidney disease Convulsions Hyperparathyroidism Neurogenic bladder Osteoporosis Peripheral neuropathy Protein S deficiency TBI (traumatic brain injury) Surgical History Colonoscopy - [facility] (02/11/15) INO MERINO Fistula creation Renal Transplant Social History Smoking/Tobacco Use Status: Never Smoking risk assessment performed?: Yes Alcohol Intake: never Drug use: Never Substance use type: does not use Do you feel safe at home: Yes Do you feel safe in your relationship?: Yes Additional Social history: Lives at [facility] and Exam Const General: cooperative, comfortable and no acute distress Eyes Sclera: sclerae normal Chest Chest: normal inspection of the chest Resp Effort & Inspection: normal respiratory effort Auscultation: clear to auscultation bilaterally Cardio Rate: regular rate Rhythm: regular rhythm GI Other: Small palpable hernia, incisional hernia 1 inch distal to be umbilicus mild diffuse tenderness to lower abdomen, no rebound or guarding, no CVA tenderness Other: Tenderness and fullness with digital rectal exam, purulent blood-tinged drainage noted, malodor No evidence of GI bleed, no hematochezia, no melena No external hemorrhoids or obvious drainable abscess/fluctuance noted, no crepitus Skin General skin exam: no rashes or lesions noted Neuro General: patient alert and patient oriented x3 Course Vital Signs Vital signs: Vital Signs Temperature 37.0 C 11/17/20 09:39 Pulse 97 H 11/17/20 09:39 Blood Pressure 157/56 H 11/17/20 09:39 Pulse Oximetry 95 11/17/20 09:39 Temperature 37.0 C 11/17/20 09:39 Temperature Source Temporal Artery Scan 11/17/20 09:39 Pulse 97 H 11/17/20 09:39 Blood Pressure 157/56 H 11/17/20 09:39 Blood Pressure Position Supine 11/17/20 09:39 Pulse Oximetry 95 11/17/20 09:39 Oxygen Delivery Method Room Air 11/17/20 09:39 Oxygen Flow Rate 0 11/17/20 09:39 Pain Level 0 11/17/20 09:39
[2020-11-17 11:19] LABS: Abs Immature Grans 0.03 10^3/uL (0.0-0.06); Absolute Basophil Count 0.04 10^3/uL (0.0-0.2); Absolute Eosinophil Count 0.19 10^3/uL (0.0-0.7); Absolute Lymphocyte Count 2.13 10^3/uL (1.2-3.4); Absolute Monocyte Count 0.83 10^3/uL (0.1-0.8); Absolute Neutrophil Count 4.75 10^3/uL (1.2-6.7); Basophils % 0.5; Eosinophils % 2.4; HCT 33.8 % (36.0-46.0); HGB 10.4 g/dL (11.2-15.7); Immature Grans % 0.4; Lymphocytes % 26.7; MCH 25.7 pg (27.0-33.0); MCHC 30.8 % (32.0-36.0); MCV 83.7 fL (80-95); MPV 8.4 fL (8.0-11.0); Monocytes % 10.4; Neutrophils % 59.6; Nucleated RBC 0 %; Platelet Count 340 10^3/uL (130-400); RBC 4.04 10^6/uL (3.93-5.22); RDW 16.7 % (11.7-14.6); RDW-SD 51.2 fL; WBC 7.97 10^3/uL (4.4-10.8)
[2020-11-17 11:20] LABS: Lactate 2.2 mmol/L (0.6-1.4)
--- NOTE | 2020-11-17 11:29 | W.ANESVAS ---
Peripheral IV Placement Date Performed: 11/17/20 Procedure Time: 11:29 Procedure Location: Emergency Department Sedation Given (Indicate Dose Given): No Sedation given Patient Mental Status: Awake Laterality: Right Insertion Site: Antecubital Size & Type: 20 ga. Dressing: IV Dressing Placed Ultrasound: Sterile probe cover and gel used Ultrasound Image Saved?: No Number of Attempts by Others: 2 Number of Attempts (See previous attempts in note section): 2 Procedure Tolerated: No Complications Procedure Outcome: Successful Procedure Comment: Asked by ED to obtain vascular access. Discussed PIV vs midline, she would like to hold off on midline at this point and would prefer the IV to be in her hand. 1 st attempt on back side of right hand, blood obtained, unable to advance catheter. 2nd attempt to left AC with US (images not saved), 20 ga, 1.88 in cath advanced without difficulty. Pt was complaining of significant pain during PIV attempts, pain gone one procedure complete. report given to ED RN. Performed By: Hussein Iyer
[2020-11-17 12:05] LABS: ALT 15 U/L (14-59); AST 16 U/L (15-37); Albumin 2.9 g/dL (3.4-5.0); Alkaline Phosphatase 84 U/L (46-116); Anion Gap 8.8 mmol/L (3-11); BUN 17 mg/dL (7-18); Bilirubin, Total 0.4 mg/dL (0.2-1.0); CO2 30.2 mmol/L (21.0-32.0); CREATININE 0.9 mg/dL (0.55-1.02); Calcium 8.4 mg/dL (8.5-10.1); Chloride 99 mmol/L (98-107); Glucose 95 mg/dL (74-106); Potassium 3.5 mmol/L (3.5-5.1); Sodium 138 mmol/L (136-145); Total Protein 7.7 g/dL (6.4-8.2)
[2020-11-17 12:39] LABS: Bilirubin Negative (Negative); Blood Moderate (Negative); Clarity Cloudy (Clear); Glucose Negative (Negative); Ketones Trace mg/dL (Negative); Leukocyte Esterase Small (Negative); Nitrite Negative (Negative); Specific Gravity 1.025 (1.005-1.025); Urobilinogen 0.2 EU/dL (Up TO 0.2)
[2020-11-17 12:45] VITALS: BP 127/55; PULSE 91; RESP 20; TEMP 37.2; O2SAT 96
[2020-11-17 12:54] LABS: WBC >50 HPF (0-5)
[2020-11-17 12:55] LABS: Bacteria Moderate HPF (Negative); C & S Indicated? Yes
[2020-11-17] MEDS: PIPERACILLIN/TAZO 3.375 GM in Normal Saline 50 ML IVPB (13:52)
[2020-11-17 15:02] VITALS: BP 136/57; PULSE 88; RESP 20; O2SAT 95
[2020-11-17] MEDS: Normal Saline 500 ML IV (16:01)
--- NOTE | 2020-11-19 09:31 | NUR.NOTE ---
Addendum entered by Zulema Lewis 11/20/20 11:13: Another preliminary [place] culture [place] [facility] Brando Lewis Original Note: Nursing Note: Preliminary blood culture [place] [facility] Zulema Lewis Fax to [facility] [phone]
== END 2020-11-17 16:50 ==
PROVIDERS: Emergency Provider Physician Assistant; PCP Family Medicine
DX: K61.1 Rectal abscess (principal); N39.0 Urinary tract infection, site not specified; B96.89 Other specified bacterial agents as the cause of diseases classified elsewhere
CPT/HCPCS: 36410; 51702; 80053; 86850; 86900; 86901; 87040; 87077; 96361; 96365; 96375; 99285; 74176; 80320; 80329; 81003; 81015; 83605; 84443; 85025; 87086; J2543

== ENCOUNTER 2020-12-29 22:18 | Outpatient (REF) | payer MEDICARE, MEDICAID, SELFPAY ==
[2020-12-29 22:35] LABS: HCT 32.4 % (36.0-46.0); HGB 9.9 g/dL (11.2-15.7); MCH 24.9 pg (27.0-33.0); MCHC 30.6 % (32.0-36.0); MCV 81.6 fL (80-95); MPV 9.3 fL (8.0-11.0); Platelet Count 398 10^3/uL (130-400); RBC 3.97 10^6/uL (3.93-5.22); RDW 16.1 % (11.7-14.6); RDW-SD 48.2 fL; WBC 9.03 10^3/uL (4.4-10.8)
== END 2020-12-29 22:19 | disposition home or self-care (01) ==
LOC: LBN 22:18
PROVIDERS: PCP Family Medicine; Visit Provider Family Medicine
DX: N18.6 End stage renal disease (principal)
CPT/HCPCS: 80053; 85027; 82465; 83735; 84100; 84550

== ENCOUNTER 2021-02-06 14:56 | Outpatient (REF) | payer MEDICARE, MEDICAID, SELFPAY ==
[2021-02-06 16:48] LABS: CREATININE 0.9 mg/dL (0.55-1.02)
== END 2021-02-06 14:57 | disposition home or self-care (01) ==
LOC: LBN 14:56
PROVIDERS: PCP Family Medicine; Visit Provider Nurse Practitioner Family
DX: K61.2 Anorectal abscess (principal)
CPT/HCPCS: 82565

== ENCOUNTER 2021-02-16 01:38 | Outpatient (CLI) | payer MEDICARE, MEDICAID, SELFPAY ==
[2021-02-16] MEDS: Breeza Beverage 473 ML BTL 946 ML PO (09:12)
[2021-02-16] MEDS: Omnipaque 350 MG/ML 50 ML BTL PO (09:13)
[2021-02-16] MEDS: Omnipaque 350 MG/ML 100 ML BTL IJ (09:40)
[2021-02-16] MEDS: Normal Saline - Diluent 50 ML VIAL IV (09:41)
--- NOTE | 2021-02-16 09:45 | DI.CT_ITS ---
Exam(s) CT ABDOMEN PELVIS W EXAM: CT ABDOMEN PELVIS W CLINICAL HISTORY: F/U RECTAL ABSCESS,RECENT COLOSTOMY. TECHNIQUE: Imaging Protocol: Axial computed tomography images with coronal and sagittal reformatted images were created and reviewed CONTRAST MATERIAL: Intravenous: Omnipaque 100cc Oral: None COMPARISON: CT CT ABDOMEN PELVIS WO from 11/17/2020 FINDINGS: VISUALIZED LUNG BASES: There is infiltrate in the left lower lobe posterior basal segment. No pleura l effusions.. ABDOMEN: Images somewhat degraded by motion artifact. There is no ascites. LIVER: There are no focal hepatic lesions evident. No evidence of intrahepatic abscess. GALLBLADDER/BILIARY: Gallbladder is difficult to evaluate because of motion. No obvious calculi ther ein.. CBD is not dilated. PANCREAS: No evidence of pancreatic mass nor dilatation of the pancreatic duct. SPLEEN: Spleen is not enlarged. No obvious intrasplenic lesions. Splenic and portal veins are paten t. ADRENALS: There are no significant adrenal masses. KIDNEYS:Both [place]ongo kidneys are again noted to be symmetrically atrophic no solid renal masses. No c alculi nor hydronephrosis.. Suprapubic catheter is again noted in the anterior aspect of the otherwi se collapsed urinary bladder. RIGHT PELVIC TRANSPLANT KIDNEY: Appears unremarkable. ABDOMINAL AORTA: Abdominal aorta is not enlarged. LYMPH NODES:There is no retroperitoneal nor paraaortic adenopathy. ABDOMINAL WALL: There is an anterior abdominal wall low infraumbilical hernia again noted. This sara ia sac presently does not contain a bowel loops therein (as was previously the case). There is a left-sided colostomy now evident. GI: No evidence of bowel obstruction. PELVIS: GI: No evidence of appendicitis.No evidence of sigmoid diverticulitis. LYMPH NODES: There is no intrapelvic nor inguinal adenopathy. REPRODUCTIVE: Age-appropriate URINARY BLADDER: As above OTHER: The previously described left para rectal abscess is again noted. It is again noted to extend from the immediate pre coccygeal region cephalad towards the obturator internus muscle-left acetabul ar region, slightly smaller than previous and better defined with a thick wall measuring 5-6 millimet ers. The presacral component of this abscess is slightly smaller than previous. Advanced degenerati ve changes in the left hip are again noted but without evidence of obvious osteomyelitis. OSSEOUS: No significant osseous lesions. No osteomyelitis evident. IMPRESSION: 1. Previously described lower left pelvic perirectal abscess is slightly decreased in size and better defined on the present study, exhibiting a wall thickness of 5-6 millimeters. It extends from the c occyx towards the medial wall of the left hip acetabulum. It contains a few gas bubbles therein. Le ngth of this abscess is approximately 9 cm and with approximately 2 cm. There is also a presacral co mponent of this abscess again noted, also slightly the smaller than previous. There is no involvemen t of the sacral canal. No osteomyelitis evident in the left hip. 2. There has been interval creation of a left sided colostomy without obvious complications at this l evel. There is no bowel obstruction. 3. There presently no bowel loops within the lower left of center anterior abdominal wall hernia. 4. Suprapubic catheter is again noted be in satisfactory position. Atrophic morongo kidneys and satisfactory appearing right pelvic transplant kidney again noted. There is significant infiltrate in the left lower lobe posterior basal segment now evident. There is no pleural effusion. RADIATION DOSE DELIVERED: 1,101.48mGy.cm Total DLP DATA REPOSITORY: All CT scans at this facility are submitted to the National Radiology Data Registry (NRDR) Dose Index Registry (DIR) with the [employer] (ACR). RADIATION OPTIMIZATION: All CT scans at this facility use at least one of these dose optimization te chniques: automated exposure control; mA and/or kV adjustment per patient size (includes targeted exa ms where dose is matched to clinical indication); or iterative reconstruction.
== END 2021-02-16 01:58 ==
PROVIDERS: PCP Family Medicine; Visit Provider Nurse Practitioner Family
DX: K61.2 Anorectal abscess (principal); Z93.3 Colostomy status; N26.1 Atrophy of kidney (terminal)
CPT/HCPCS: 74177; J3490; Q9967

== ENCOUNTER 2021-03-30 20:17 | Outpatient (REF) | payer MEDICARE, MEDICAID, SELFPAY ==
[2021-03-30 20:15] LABS: Cholesterol 197 mg/dL (<200)
[2021-03-30 20:17] LABS: Magnesium 2.4 mg/dL (1.8-2.4)
[2021-03-30 20:32] LABS: PHOSPHORUS 4.7 mg/dL (2.6-4.7); Uric Acid 4.4 mg/dL (2.6-6.0)
[2021-03-31 11:33] LABS: ALT 14 U/L (14-59); AST 14 U/L (15-37); Albumin 3.1 g/dL (3.4-5.0); Alkaline Phosphatase 77 U/L (46-116); Anion Gap 12.6 mmol/L (3-11); BUN 27 mg/dL (7-18); Bilirubin, Total 0.3 mg/dL (0.2-1.0); CO2 24.4 mmol/L (21.0-32.0); Calcium 8.2 mg/dL (8.5-10.1); Chloride 101 mmol/L (98-107); Estimated GFR 57.15 (mL/min/1.73m2); Glucose 109 mg/dL (74-106); Potassium 4.6 mmol/L (3.5-5.1); Sodium 138 mmol/L (136-145)
[2021-04-01 12:11] LABS: Tacrolimus 5.8 ng/mL (See Note)
== END 2021-03-30 20:18 | disposition home or self-care (01) ==
LOC: LBN 20:17
PROVIDERS: PCP Family Medicine; Visit Provider Family Medicine
DX: N18.6 End stage renal disease (principal)
CPT/HCPCS: 80053; 80197; 82465; 83735; 84100; 84550

== ENCOUNTER 2021-04-11 16:33 | Inpatient (IN) | payer MEDICARE, MEDICAID, SELFPAY ==
--- NOTE | 2021-04-11 16:45 | DI.CT_ITS ---
Exam(s) CT ABDOMEN PELVIS W EXAM: CT ABDOMEN PELVIS W CLINICAL HISTORY: increased rectal pain, recent abscess. TECHNIQUE: Imaging Protocol: Axial computed tomography images with coronal and sagittal reformatted images were created and reviewed CONTRAST MATERIAL: Intravenous: Omnipaque 100cc Oral: None COMPARISON: CT CT ABDOMEN PELVIS WO from 11/17/[address] ABDOMEN PELVIS W from 02/16/[address] ABDOMEN PELVIS W from 02/16/2021 FINDINGS: VISUALIZED LUNG BASES: The amount of infiltrate in the left lower lobe posterior basal segment has de creased but not completely resolved. No pleural effusion evident.. ABDOMEN: There is no ascites. LIVER: There are no focal hepatic lesions evident . GALLBLADDER/BILIARY: No obvious gallbladder pathology. CBD is not dilated. PANCREAS: No evidence of pancreatic mass nor dilatation of the pancreatic duct. SPLEEN: Spleen is not enlarged. No obvious intrasplenic lesions. Splenic and portal veins are paten t. ADRENALS: There are no significant adrenal masses. KIDNEYS:Atrophic [place] kidneys again noted. The right pelvic transplant kidney appears satisfactory normal cortical thickness and no obstruction.. ABDOMINAL AORTA: Abdominal aorta is not enlarged. LYMPH NODES:There is no retroperitoneal nor paraaortic adenopathy. ABDOMINAL WALL: Left sided colostomy is again noted. Appears unchanged. GI: There is no evidence of bowel obstruction, free air, nor abscess. PELVIS: GI: No evidence of appendicitis.No evidence of sigmoid diverticulitis. LYMPH NODES: There is no intrapelvic nor inguinal adenopathy. REPRODUCTIVE: Age-appropriate URINARY BLADDER: Suprapubic catheter again noted in the anterior aspect of the otherwise collapsed ur inary bladder. Appears to be calcification in the bladder. OTHER: The previously described left para rectal abscess is again noted. It is again noted to extend from the immediate pre coccygeal region towards the left acetabulum. Exhibits very little if any si gnificant change in size when compared to prior study of 02/16/2021. It is again noted to extend to the left obturator internus muscle. The separate presacral component also exhibits minimal if any si gnificant change. OSSEOUS: Advanced degenerative changes left hip again noted. No evidence of osteomyelitis. IMPRESSION: 1. The size of the left para rectal abscess exhibits minimal if any significant change when compared to the most recent CT scan of 02/16/2021. Is again noted to extend from the coccyx towards the media l wall of the left hip acetabulum. It also again exhibits a smaller presacral component is also unch anged. No involvement of the sacral canal. 2. Advanced degenerative changes in the left hip. No obvious evidence of osteomyelitis 3. Left-sided colostomy again noted as well as suprapubic catheter in the urinary bladder. 4. Atrophic [place] kidneys and satisfactory appearing right pelvic transplant kidney again noted. Infiltrate in the left lower lobe posterior basal segment has decreased but not completely resolved. There is no associated pleural effusion RADIATION DOSE DELIVERED: 1,148.71mGy.cm Total DLP DATA REPOSITORY: All CT scans at this facility are submitted to the National Radiology Data Registry (NRDR) Dose Index Registry (DIR) with the [employer] (A[employer]). RADIATION OPTIMIZATION: All CT scans at this facility use at least one of these dose optimization te chniques: automated exposure control; mA and/or kV adjustment per patient size (includes targeted exa ms where dose is matched to clinical indication); or iterative reconstruction.
--- NOTE | 2021-04-11 16:47 | W.ED.GENAD ---
Discharge Plan Discharge Details Chief Complaint: GenMedical Admit Date/Time: 04/11/21 21:38 Admit Provider: Deondre Reynolds Attending Provider: Deondre Reynolds Primary Care Provider: Randall Ling ED Provider: Isis Loera Discharge Data Discharge Date/Time-TO BE ENTERED AT DEPARTURE: 04/11/21 22:39 Medical Decision Making Patient is a pleasant 55-year-old female presents with chief complaint of draining rectal wound and abdominal discomfort. Patient reports that s he had a rectal abscess that has been intermittently problematic for several months. Patient is being seen and treated at [facility] for this. Patient does have an ostomy as result of complications associated with this. Patient also has pubic catheter. No fevers or chills reported by patient or health and rehab where she resides. Also has had some abdominal discomfort which she states is worse than typical but is chronic in nature. Nursing staff also concerned about the discharge from her suprapubic catheter. PMH signficant for candice-rectal abscess, TBI, cerebellar lesion, CHF, adrenal insufficiency, history of kidney transplant, UTI, suprapubic catheter, seizure disorder, neurogenic bladder, hypertension. On exam, patient appears chronically ill. Does not appear acutely ill. She appears very anxious. Exam of her abdomen reveals pink, draining ostomy. Suprapubic cath in place. No surrounding erythema. Abdomen has multiple well healed incisions and a few notable hernias which are all soft. She is generally tender but no focal area of pain or peritoneal findings. Abdomen is generally tense but this seems to be most consistent with severe anxiety. Rectal exam limited secondary to her anxiety. However, externally she has a quarter sized superficial area where skin appears to have opened. No active drainage. No surrounding erythema or warmth. No area of induration or fluctuance. Reviewed notes from [facility]. Her exam is most consistent with likely drained abscess. I do not see evidence of further abscess at this time. However, as she has had deeper abscess historically, will obtain CT and baseline labs. Labs reviewed. No leukocytosis, stable anemia. Lactate slightly elevated. FINDINGS: Tubes, catheters and devices: There is a suprapubic Noriega catheter present. Lungs: There is minimal bibasilar atelectasis. Heart: There is calcification of the cardiac mitral valve annulus. Mediastinal space: Material present within the distal esophageal lumen may represent reflux versus ingested material. Consider bezoar. Diaphragm: A moderate hiatal hernia is present. Liver: There are no focal liver lesions present. Gallbladder and bile ducts: There is no evidence of intrahepatic or extrahepatic biliary ductal dilation. The gallbladder is normal. There is no cholelitiasis, wall thickening or pericholecystic fluid to suggest cholecystitis. Pancreas: Moderate pancreatic atrophy with mild pancreatic ductal dilatation present. Spleen: The spleen is normal. Adrenal glands: The adrenal glands are normal. Kidneys and ureters: Severe bilateral renal is cortical atrophy present. 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 Bilateral renal cortical calcifications are present. There is a renal transplant seen within the right pelvis which appears unremarkable. Transplant renal vasculature appears widely patent. Stomach and bowel: There is a colostomy seen within the left lower quadrant of the abdomen. There is a 12 x 5 x 3.6 cm thick-walled fluid collection seen within the left perirectal soft tissues with irregular margins consistent with perirectal abscess. This appears slightly more organized and approximately the same size compared to the prior study. There is moderate increased colonic fecal content. The colon is mildly distended. These findings suggest a moderate degree of constipation. Clinical correlation recommended. Surgical changes seen within the left lower quadrant consistent with prior partial left colectomy. There is fecalization of the small bowel. Consider chronic constipation. Appendix: There is no evidence of appendicitis. Intraperitoneal space: No free air. No significant fluid collection. Vasculature: The peripheral vasculature demonstrates diffuse mild to moderate atherosclerotic calcification. The aorta demonstrates mild atherosclerotic calcification. Lymph nodes: No evidence of lymphadenopathy. Urinary bladder: The bladder is collapsed around a Noriega catheter. Reproductive: The uterus is normal.The ovaries are normal. Bones/joints: There is a convex dextroscoliosis present. The lumbar and thoracolumbar spine appears within normal limits. Soft tissues: The extra-abdominal soft tissues are normal. Other findings: The inferior venacava appears normal. IMPRESSION: 1. There is a 12 x 5 x 3.6 cm thick-walled fluid collection seen within the left perirectal soft tissues with irregular margins consistent with perirectal abscess. This appears slightly more organized and approximately the same size compared to the prior study. Severe end-stage osteoarthritic changes seen within the left hip with moderate to severe osteoarthritic changes seen within the right hip. 2. A moderate hiatal hernia is present. 3. Material present within the distal esophageal lumen may represent reflux versus ingested material. Consider bezoar. 4. Severe bilateral renal cortical atrophy present. 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 Bilateral renal cortical calcifications are present. The adrenal glands are normal. 5. There is a renal transplant seen within the right pelvis which appears unremarkable. Transplant renal vasculature appears widely patent. Images pushed to [facility]. Have requested consultation with [facility] surgery team. UA concerning for UTI with positive nitrites. Will change out suprapubic cath. Concerned that she has had signficant resistance historically. She also is s/p kidney transplant, will want to be more aggressive with abx until cultures have returned. Consulted with Dr. August at [facility]. He was able to review previous imaging and notes. He has been directly involved historically with her care. Reviewed CT imaging today and advised that as the patient is normal no leukocytosis, elevated lactate does not appear systemically ill, no emergent surgical intervention is warranted. However, he advised that sigmoidoscopy as well as IR drainage with drain placement to be slowly removed may be of benefit to the patient and ultimately were resulted in cessation of the chronic abscess problem. He advised that at this time they do not have bed availability. However, advised patient could go for a down and back tomorrow. Patient given IV Zosyn based on previous culture and sensitivity from urine as well as recommendations from Dr. August for the abscess. Consulted with Dr. Reynolds who agrees to admission for UTI, abscess with plan for procedure tomorrow at [facility] as noted above. Patient and her sister are in agreement with [facility]. HPI General Mode of arrival: EMS. Date/Time Provider Initiated Documentation: 04/11/21 16:35. Limitations to Documentation: physical limitation (TBI, very anxious). Information obtained by: patient, family (sister), RN/MD (called by nursing staff prior to arrival), EMS and RN notes reviewed. History of Present Illness 55 year old F presents to the emergency department with the chief complaint of buttock pain, purulent discharge, described as severe and similar to prior episodes (hx of chronic perirectal abscess ), and is localized to the buttocks. Patient reports no radiation. Patient started experiencing this unknown (acute on chronic pain and drainage) and it has been constant. other things that improve symptom(s), (turned on side) Other factors that worsen symptoms (pressure on the area) . Patient notes denies confusion ([facility]&R advised that patient is at her baseline), chest pain, cough, diaphoresis, fever/chills, nausea/vomiting and shortness of breath. Patient did receive the following treatments prior to arrival, none Related Data Home Medications Medication Instructions Recorded Confirmed levetiracetam [Keppra] 1,500 mg PO BID 08/15/13 04/11/21 mycophenolate mofetil 250 mg PO BID 10/19/18 04/11/21 prednisone 5 mg PO Q OTHER DAY 10/19/18 04/11/21 magnesium oxide 400 mg PO TID 10/29/18 04/11/21 furosemide 20 mg PO BID #0 tab 11/04/18 04/11/21 bisacodyl 10 mg WI BID PRN PRN #0 ea 02/11/19 04/11/21 magnesium hydroxide [Milk of 30 ml PO BID PRN PRN #0 ml 02/11/19 04/11/21 Magnesia] guaifenesin 100 mg/5 mL oral liquid 400 mg PO Q4H PRN 03/15/20 04/11/21 d-mannose 2,000 mg PO DAILY 09/14/20 04/11/21 menthol [Biofreeze (menthol)] 1 applic TOPICAL TID 09/14/20 04/11/21 mirabegron [Myrbetriq] 50 mg PO DAILY 09/14/20 04/11/21 morphine 30 mg PO QHS 09/14/20 04/11/21 protein hydrolysate,milk [Liquid 30 ml PO DAILY 09/14/20 04/11/21 Protein Fortifier] sertraline 50 mg tablet 150 mg PO DAILY tab 11/08/20 04/11/21 nystatin 100,000 applic TOPICAL PRN PRN 11/17/20 04/11/21 polyethylene glycol 3350 17 g PO DAILY PRN 11/17/20 04/11/21 tacrolimus 2 mg PO QAM 11/17/20 04/11/21 acetaminophen 650 mg PO Q6H PRN 04/11/21 04/11/21 morphine 15 mg PO QAM 04/11/21 04/11/21 sennosides [Senokot] 2 tab PO BID 04/11/21 04/11/21 simethicone 125 mg PO TID PRN 04/11/21 04/11/21 sodium phosphates [Fleet Enema] 118 ml WI DAILY PRN 04/11/21 04/11/21 tacrolimus 1 mg PO QHS 04/11/21 04/11/21 venlafaxine 75 mg PO DAILY 04/11/21 04/11/21 Previous Rx's Medication Instructions Recorded furosemide 20 mg PO BID #0 tab 11/04/18 bisacodyl 10 mg WI BID PRN PRN #0 ea 02/11/19 magnesium hydroxide [Milk of 30 ml PO BID PRN PRN #0 ml 02/11/19 Magnesia] Allergies Allergy/AdvReac Type Severity Reaction Status Date / Time codeine Allergy Unverified 04/11/21 18:38 divalproex sodium Allergy Unverified 04/11/21 18:38 [From Depakote] povidone-iodine AdvReac Skin Rash Unverified 04/11/21 18:38 [From Betadine] soap [From Betadine] AdvReac Skin Rash Unverified 04/11/21 18:38 General Stated Complaint: GenMedical AD: 3 Review of Systems Unobtainable due to mental condition PFSH All Active Problems (Updated 04/12/21 @ 14:05 by Connie Huggins NP) Discharge planning issues (Acute) Complicated UTI (urinary tract infection) (Acute) Candice-rectal abscess (Chronic) Ambulatory dysfunction (Chronic) Adrenal insufficiency (Chronic) Hypercoagulable state, primary (Chronic) Hypertension (Chronic) Osteoarthritis of left hip (Chronic) Medical History (Updated 04/12/21 @ 14:05 by Connie Huggins NP) C5 vertebral fracture Cerebellar lesion Chronic anticoagulation Chronic kidney disease Hyperparathyroidism Lytic bone lesions on xray on CT Neurogenic bladder Osteoporosis Peripheral neuropathy Protein S deficiency Seizure disorder TBI (traumatic brain injury) Surgical History (Updated 04/11/21 @ 22:56 by Deondre Reynolds) Colonoscopy - MAC (02/11/15) INO MERINO Fistula creation History of kidney transplant S/P kidney transplant Social History Smoking/Tobacco Use Status: Never Smoking risk assessment performed?: Yes Alcohol Intake: never Drug use: Never Substance use type: does not use Do you feel safe at home: Yes Do you feel safe in your relationship?: Yes Additional Social history: Lives at [facility] and Exam Const General: cooperative, healthy appearing, uncomfortable, well developed, in distress moderate (very anxious) and anxious Nutritional Appearance: average body habitus and well nourished Orientation: alert and awake [facility] Head: normal to inspection Mouth: moist mucous membranes Resp Effort & Inspection: normal respiratory effort, able to speak in complete sentences and no respiratory distress Auscultation: clear to auscultation bilaterally, no rales, no rhonchi and no wheezes Cardio Rate: regular rate Rhythm: regular rhythm Heart Sounds: S1 normal and S2 normal GI Inspection: distended, visible herniation, no visible pulsation and other (ostomy, pink with normal output) Palpation: no hepatosplenomegaly, no aortic enlargement, firm (diffusely firm, patient is very anxious and has difficulty relaxing), guarding (generalizeed, again, appears more from anxiety than pain with palpation), nontender (no focal area of pain on exam) and No ascites Percussion: normal to percussion Auscultation: normal bowel sounds Rectal Exam - female: sphincter tone not normal (patient does not tollerate rectal exam) Female genitals images: 1. Quarter sized area of sloughed skin. No active drainage. Very tender for the patient. No surrounding erythema, warmth. Abuts rectum. No palpable areea of induration or fluctuance Skin Wounds: wounds noted (abutting rectum as above) Neuro General: patient alert and patient awake Cognition: normal cognition Psych Appearance: grossly normal and well kempt Mental Status: mental status grossly normal Speech and Movement: speech and movement normal
[2021-04-11 17:56] VITALS: RESP 16
[2021-04-11 18:26] LABS: Lactate 1.3 mmol/L (0.6-1.4)
[2021-04-11 18:28] LABS: Abs Immature Grans 0.02 10^3/uL (0.0-0.06); Absolute Basophil Count 0.03 10^3/uL (0.0-0.2); Absolute Eosinophil Count 0.19 10^3/uL (0.0-0.7); Absolute Lymphocyte Count 1.62 10^3/uL (1.2-3.4); Absolute Monocyte Count 0.51 10^3/uL (0.1-0.8); Absolute Neutrophil Count 4.71 10^3/uL (1.2-6.7); Basophils % 0.4; Eosinophils % 2.7; HCT 32.8 % (36.0-46.0); HGB 9.8 g/dL (11.2-15.7); Immature Grans % 0.3; Lymphocytes % 22.9; MCH 24.8 pg (27.0-33.0); MCHC 29.9 % (32.0-36.0); MPV 8.5 fL (8.0-11.0); Monocytes % 7.2; Neutrophils % 66.5; Nucleated RBC 0 %; Platelet Count 413 10^3/uL (130-400); RBC 3.95 10^6/uL (3.93-5.22); RDW 17.4 % (11.7-14.6); RDW-SD 52.5 fL; WBC 7.08 10^3/uL (4.4-10.8)
[2021-04-11 18:50] LABS: ALT 13 U/L (14-59); AST 17 U/L (15-37); Albumin 3.2 g/dL (3.4-5.0); Alkaline Phosphatase 80 U/L (46-116); Anion Gap 9.4 mmol/L (3-11); BUN 24 mg/dL (7-18); Bilirubin, Total 0.3 mg/dL (0.2-1.0); CO2 28.6 mmol/L (21.0-32.0); Calcium 8.5 mg/dL (8.5-10.1); Chloride 102 mmol/L (98-107); Estimated GFR 57.15 (mL/min/1.73m2); Glucose 103 mg/dL (74-106); Lipase 79 U/L (73-393); Magnesium 2.5 mg/dL (1.8-2.4); Potassium 4.1 mmol/L (3.5-5.1); Sodium 140 mmol/L (136-145); Total Protein 7.9 g/dL (6.4-8.2)
[2021-04-11] MEDS: Omnipaque 350 MG/ML 100 ML BTL IJ (19:13)
--- NOTE | 2021-04-11 20:32 | DI.VRAD_ITS ---
PROCEDURE INFORMATION: Exam: CT Abdomen And Pelvis With Contrast Exam date and time: 04/11/2021 4:56 PM Age: 55 years old Clinical indication: Prior surgery; Patient HX: Increased rectal pain, recent abscess TECHNIQUE: Imaging protocol: Computed tomography of the abdomen and pelvis with contrast. COMPARISON: CT ABDOMEN PELVIS W 02/16/2021 9:33 AM FINDINGS: Tubes, catheters and devices: There is a suprapubic Noriega catheter present. Lungs: There is minimal bibasilar atelectasis. Heart: There is calcification of the cardiac mitral valve annulus. Mediastinal space: Material present within the distal esophageal lumen may represent reflux versus ingested material. Consider bezoar. Diaphragm: A moderate hiatal hernia is present. Liver: There are no focal liver lesions present. Gallbladder and bile ducts: There is no evidence of intrahepatic or extrahepatic biliary ductal dilation. The gallbladder is normal. There is no cholelitiasis, wall thickening or pericholecystic fluid to suggest cholecystitis. Pancreas: Moderate pancreatic atrophy with mild pancreatic ductal dilatation present. Spleen: The spleen is normal. Adrenal glands: The adrenal glands are normal. Kidneys and ureters: Severe bilateral renal is cortical atrophy present. 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 Bilateral renal cortical calcifications are present. There is a renal transplant seen within the right pelvis which appears unremarkable. Transplant renal vasculature appears widely patent. Stomach and bowel: There is a colostomy seen within the left lower quadrant of the abdomen. There is a 12 x 5 x 3.6 cm thick-walled fluid collection seen within the left perirectal soft tissues with irregular margins consistent with perirectal abscess. This appears slightly more organized and approximately the same size compared to the prior study. There is moderate increased colonic fecal content. The colon is mildly distended. These findings suggest a moderate degree of constipation. Clinical correlation recommended. Surgical changes seen within the left lower quadrant consistent with prior partial left colectomy. There is fecalization of the small bowel. Consider chronic constipation. Appendix: There is no evidence of appendicitis. Intraperitoneal space: No free air. No significant fluid collection. Vasculature: The peripheral vasculature demonstrates diffuse mild to moderate atherosclerotic calcification. The aorta demonstrates mild atherosclerotic calcification. Lymph nodes: No evidence of lymphadenopathy. Urinary bladder: The bladder is collapsed around a Noriega catheter. Reproductive: The uterus is normal.The ovaries are normal. Bones/joints: There is a convex dextroscoliosis present. The lumbar and thoracolumbar spine appears within normal limits. Soft tissues: The extra-abdominal soft tissues are normal. Other findings: The inferior venacava appears normal. IMPRESSION: 1. There is a 12 x 5 x 3.6 cm thick-walled fluid collection seen within the left perirectal soft tissues with irregular margins consistent with perirectal abscess. This appears slightly more organized and approximately the same size compared to the prior study. Severe end-stage osteoarthritic changes seen within the left hip with moderate to severe osteoarthritic changes seen within the right hip. 2. A moderate hiatal hernia is present. 3. Material present within the distal esophageal lumen may represent reflux versus ingested material. Consider bezoar. 4. Severe bilateral renal cortical atrophy present. 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 Bilateral renal cortical calcifications are present. The adrenal glands are normal. 5. There is a renal transplant seen within the right pelvis which appears unremarkable. Transplant renal vasculature appears widely patent. Dictated and Authenticated by: Eliel Driver MD. Ordering:WESTLEY Marinelli MD
[2021-04-11 20:34] VITALS: BP 119/63; PULSE 74; TEMP 36.2; O2SAT 93
[2021-04-11 20:39] LABS: Bilirubin Negative (Negative); Blood Small (Negative); Glucose Negative (Negative); Ketones Negative (Negative); Leukocyte Esterase Negative (Negative); Nitrite Positive (Negative); Urobilinogen 0.2 EU/dL (Up TO 0.2)
[2021-04-11 20:40] LABS: Clarity Cloudy (Clear)
[2021-04-11 20:47] LABS: Bacteria Few HPF (Negative); Epithelial Cells Negative HPF (Negative); WBC 20-50 HPF (0-5)
[2021-04-11 20:48] LABS: C & S Indicated? Yes; Crystals Many Amorphous HPF (Negative); Mucus Negative (Negative)
[2021-04-11] MEDS: PIPERACILLIN/TAZO 3.375 GM in Normal Saline 50 ML IVPB (21:38)
--- NOTE | 2021-04-11 22:00 | W.PM.HP.N ---
Date of service: 04/11/21 Time of Service: 22:00 Assessment and Plan Assessment and plan (1) Candice-rectal abscess: Status: Chronic Assessment and plan: Continue Zosyn 3.375 g IV slow infusion every 8 hours, await results of wound and blood cultures. Consult in the morning with interventional radiology at [facility] for down the back procedure for drainage catheter placement. We will keep n.p.o. for tonight in anticipation of a procedure tomorrow for placement of a drainage catheter. I called [facility] and spoke to their transfer center. They could not facilitate setting up a down back procedure for tomorrow as they had no interventional radiology attending television picture tube rebuilder. They indicated that we would have to call tomorrow morning to discuss the case with the interventional radiology fellow who would then discussed the case with his attending. (2) Complicated UTI (urinary tract infection): Status: Acute Assessment and plan: Presumably has cystitis but given her chronic kidney disease and status post renal transplant and previous history of pyelonephritis of her transplant kidney and since being treated like a potentially complicated UTI. We will get an ultrasound of her transplanted kidney in the morning to evaluate for pyelonephritis as well as to rule out any obstructive uropathy. (3) Adrenal insufficiency: Status: Chronic Assessment and plan: Continue home dose of prednisone but will start her on stress dose hydrocortisone for the next 72 hours while she receives treatment for infection. (4) Hypertension: Status: Chronic Assessment and plan: Currently not on any active treatment for hypertension. She does take furosemide chronically for diastolic heart failure. Present time she shows no signs of acute congestive failure and as she will be n.p.o. her furosemide will be placed on hold. She will be given low-dose IV fluids overnight in anticipation of surgical procedure tomorrow. Qualifiers: Hypertension type: unspecified Qualified Code(s): I10 - Essential (primary) hypertension (5) Chronic kidney disease: Assessment and plan: Avoid nephrotoxins. Continue her current immunosuppressive therapy for her renal transplant. Qualifiers: Chronic kidney disease stage: unspecified stage Qualified Code(s): N18.9 - Chronic kidney disease, unspecified History of Present Illness History of Present Illness Chief Complaint: Perirectal abscess, possible UTI Narrative: 55-year-old female resident of [facility] who sent to [facility] emergency department with perirectal drainage and abdominal discomfort. Patient has a chronic perirectal abscess that is followed by the surgical service at [facility] and she has a colostomy due to neurogenic bowel, suprapubic catheter for neurogenic bladder, and comorbidities including traumatic brain injury, diastolic heart failure, adrenal insufficiency, chronic renal failure that necessitated a kidney transplant last year for which she is on immunosuppressive therapy including mycophenolate, prednisone, tacrolimus. According to Isis Loera NP, ED provider will evaluate the patient and found that the patient suprapubic catheter was draining purulent urine. She ordered a CT scan of the chest abdomen and pelvis which demonstrated a 12 x 5 x 3.6 cm thick-walled fluid collection in the left perirectal soft tissue with irregular margins consistent with perirectal abscess. According the radiologist interpretation this appeared to be slightly more organized and about the same size as previous study when compared to prior studies from 02/16/2021. Also seen are severe end-stage osteoarthritic changes in the left hip as well as the right hip and a moderate hiatal hernia. Severe bilateral renal cortical atrophy is present as well as bilateral renal cortical calcifications. Renal transplant is seen in the right pelvis and appears to be unremarkable with widely patent renal vasculature. Patient also has a evidence of distal esophageal reflux versus bezoar. Laboratory studies include a CBC that showed no leukocytosis with a normal WBC of 7000. Stable chronic anemia hemoglobin 9.8 g hematocrit 32%. Blood lactate level is normal at 1.3. CMP showed slightly elevated BUN of 24 with a normal creatinine 1.0 and normal LFTs and normal lipase. Albumin is slightly low at 3.2. Urinalysis was cloudy with 30 mg/dL protein small amount of blood positive for urine nitrites with 3-5 red cells and 20-50 white cells per high-powered field and a few bacteria. CT scan images were sent to [facility] and the case was reviewed by Dr. August and discussed with Ms. Loera from the ED department [facility]. According to Ms. Luz Maria August has been involved in the patient's care in the past and they reviewed the CTs findings and advised that the patient needed no emergent surgical intervention but advised that a sigmoidoscopy as well as IR drainage with drain placement may be of benefit to the patient and that the patient could possibly go down to [facility] for down back procedure tomorrow. Blood and wound cultures and urine cultures were obtained and the patient was started empirically on Zosyn and will be kept n.p.o. for possible procedure tomorrow morning. Review of Systems All systems reviewed & are unremarkable except as noted in HPI and below PFSH All Active Problems (Updated 04/11/21 @ 23:33 by Deondre Reynolds) Complicated UTI (urinary tract infection) (Acute) Candice-rectal abscess (Chronic) Ambulatory dysfunction (Chronic) Adrenal insufficiency (Chronic) Hypercoagulable state, primary (Chronic) Hypertension (Chronic) Osteoarthritis of left hip (Chronic) Medical History (Updated 04/11/21 @ 23:33 by Deondre Reynolds) C5 vertebral fracture Cerebellar lesion Chronic anticoagulation Chronic kidney disease Hyperparathyroidism Lytic bone lesions on xray on CT Neurogenic bladder Osteoporosis Peripheral neuropathy Protein S deficiency Seizure disorder TBI (traumatic brain injury) Surgical History (Updated 04/11/21 @ 22:56 by Deondre Reynolds) Colonoscopy - MAC (02/11/15) INO MERINO Fistula creation History of kidney transplant S/P kidney transplant Social History Smoking/Tobacco Use Status: Never Smoking risk assessment performed?: Yes Alcohol Intake: never Drug use: Never Substance use type: does not use Do you feel safe at home: Yes Do you feel safe in your relationship?: Yes Additional Social history: Lives at [facility] Allergies and Home Medications Allergies Allergy/AdvReac Type Severity Reaction Status Date / Time codeine Allergy Unverified 04/11/21 18:38 divalproex sodium Allergy Unverified 04/11/21 18:38 [From Depakote] povidone-iodine AdvReac Skin Rash Unverified 04/11/21 18:38 [From Betadine] soap [From Betadine] AdvReac Skin Rash Unverified 04/11/21 18:38 Home Medications Medication Instructions Recorded Confirmed Type levetiracetam [Keppra] 1,500 mg PO BID 08/15/13 04/11/21 History mycophenolate mofetil 250 mg PO BID 10/19/18 04/11/21 History prednisone 5 mg PO Q OTHER DAY 10/19/18 04/11/21 History magnesium oxide 400 mg PO TID 10/29/18 04/11/21 History furosemide 20 mg PO BID #0 tab 11/04/18 04/11/21 Rx bisacodyl 10 mg MN BID PRN PRN #0 ea 02/11/19 04/11/21 Rx magnesium hydroxide [Milk of 30 ml PO BID PRN PRN #0 ml 02/11/19 04/11/21 Rx Magnesia] guaifenesin 100 mg/5 mL oral liquid 400 mg PO Q4H PRN 03/15/20 04/11/21 History d-mannose 2,000 mg PO DAILY 09/14/20 04/11/21 History menthol [Biofreeze (menthol)] 1 applic TOPICAL TID 09/14/20 04/11/21 History mirabegron [Myrbetriq] 50 mg PO DAILY 09/14/20 04/11/21 History morphine 30 mg PO QHS 09/14/20 04/11/21 History protein hydrolysate,milk [Liquid 30 ml PO DAILY 09/14/20 04/11/21 History Protein Fortifier] sertraline 50 mg tablet 150 mg PO DAILY tab 11/08/20 04/11/21 History nystatin 100,000 applic TOPICAL PRN PRN 11/17/20 04/11/21 History polyethylene glycol 3350 17 g PO DAILY PRN 11/17/20 04/11/21 History tacrolimus 2 mg PO QAM 11/17/20 04/11/21 History acetaminophen 650 mg PO Q6H PRN 04/11/21 04/11/21 History morphine 15 mg PO QAM 04/11/21 04/11/21 History sennosides [Senokot] 2 tab PO BID 04/11/21 04/11/21 History simethicone 125 mg PO TID PRN 04/11/21 04/11/21 History sodium phosphates [Fleet Enema] 118 ml MN DAILY PRN 04/11/21 04/11/21 History tacrolimus 1 mg PO QHS 04/11/21 04/11/21 History venlafaxine 75 mg PO DAILY 04/11/21 04/11/21 History Exam Narrative Exam Narrative: Middle-aged white female lying in bed in semifowler position who is alert and oriented person place time circumstance in no acute distress. HEENT is remarkable for she wears glasses. She has her own teeth there is no injection, nor any exudate. Neck is supple nontender no JVD normal carotid pulses Chest wall she has a scar over the suprasternal notch and extending over the upper manubrium. The scar is well-healed may have been related to a prior tracheostomy. Lungs are clear to auscultation Heart is regular rate and rhythm with a loud grade 3-4/6 systolic murmur over the apex consistent with mitral vegetation. No palpable heave nor any appreciable rub or gallop Abdomen is slightly distended with normal active bowel sounds she has a colostomy on the left side with light brown semiformed stool. She has a suprapubic urostomy with a catheter that is draining clear yellow urine. Patient has some mild suprapubic tenderness but no guarding or rebound tenderness. Lower extremities without peripheral cyanosis or edema. 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 She has normal pulses. She has decreased range of motion in her feet and ankles. She has bilateral leg weakness. Upper extremities she has an AV fistula in the left arm with a palpable thrill. She has scar tissue of the left forearm from previous AV fistula placement. Right forearm also has scar tissue but no palpable fistula. Neuro exam no focal cranial nerve deficits however she has significant paresis in both legs which apparently is chronic. Results Imaging Abdomen CT scan report/results: report reviewed CT scan - pelvis: report reviewed Labs Result diagrams: 04/11/21 18:20 04/11/21 18:20 Labs: Laboratory Results - last 24 hr 04/11/21 04/11/21 04/11/21 18:20 18:20 18:20 WBC 7.08 RBC 3.95 Hgb 9.8 L Hct 32.8 L MCV 83.0 MCH 24.8 L MCHC 29.9 L RDW 17.4 H Plt Count 413 H MPV 8.5 Immature Gran % 0.3 Neutrophils % 66.5 Lymphocytes % 22.9 Monocytes % 7.2 Eosinophils % 2.7 Basophils % 0.4 Nucleated RBC % 0 Absolute Neutrophils 4.71 Absolute Lymphocytes 1.62 Absolute Monocytes 0.51 Absolute Eosinophils 0.19 Absolute Basophils 0.03 VBG Lactate 1.3 Sodium 140 Potassium 4.1 Chloride 102 Carbon Dioxide 28.6 Anion Gap 9.4 BUN 24 H Creatinine 1.0 Estimated GFR/1.73 m2 57.15 Glucose 103 Calcium 8.5 Magnesium 2.5 H Total Bilirubin 0.3 AST 17 ALT 13 L Alkaline Phosphatase 80 Total Protein 7.9 Albumin 3.2 L Lipase 79 Urine Color Urine Clarity Urine pH Ur Specific [place] Urine Protein Urine Ketones Urine Blood Urine Nitrite Urine Bilirubin Urine Urobilinogen Ur Leukocyte Esterase Urine RBC Urine WBC Ur Epithelial Cells Urine Crystals Urine Bacteria Urine Mucus Ur Culture Indicated? Urine Glucose 04/11/21 20:15 WBC RBC Hgb Hct MCV MCH MCHC RDW Plt Count MPV Immature Gran % Neutrophils % Lymphocytes % Monocytes % Eosinophils % Basophils % Nucleated RBC % Absolute Neutrophils Absolute Lymphocytes Absolute Monocytes Absolute Eosinophils Absolute Basophils VBG Lactate Sodium Potassium Chloride Carbon Dioxide Anion Gap BUN Creatinine Estimated GFR/1.73 m2 Glucose Calcium Magnesium Total Bilirubin AST ALT Alkaline Phosphatase Total Protein Albumin Lipase Urine Color Yellow Urine Clarity Cloudy Urine pH 7.0 Ur Specific [place] 1.010 Urine Protein 30 H Urine Ketones Negative Urine Blood Small H Urine Nitrite Positive H Urine Bilirubin Negative Urine Urobilinogen 0.2 Ur Leukocyte Esterase Negative Urine RBC 3-5 H Urine WBC 20-50 H Ur Epithelial Cells Negative Urine Crystals Many Amorphous Urine Bacteria Few Urine Mucus Negative Ur Culture Indicated? Yes Urine Glucose Negative Last Vital Signs Temp 36.2 C L 04/11/21 20:34 Pulse 74 04/11/21 20:34 Resp 16 04/11/21 17:56 BP 119/63 04/11/21 20:34 Pulse Ox 93 04/11/21 20:34
[2021-04-11 22:20] LABS: Source Nasal/Nares
[2021-04-11 23:10] VITALS: BP 120/65; PULSE 81; RESP 19; TEMP 36.8; O2SAT 90
[2021-04-11] MEDS: Heparin 5,000 UNITS/ML VIAL 5000 UNITS SC (23:47)
[2021-04-11] MEDS: Hydrocortisone SOD SUC. 100 MG VIAL 50 MG IVP (23:47)
[2021-04-11] MEDS: Normal Saline Flush 10 ML SYR IVP (23:47)
[2021-04-11] MEDS: Tacrolimus 0.5 MG CAP 1 MG PO (23:48)
[2021-04-11] MEDS: Docusate Sodium 100 MG CAP PO (23:48)
[2021-04-11] MEDS: Lactated Ringers 1,000 ML 85 ML IV (23:48)
[2021-04-11] MEDS: ACETAMINOPHEN 1,000 MG/100 ML BTL 400 MG IVPB (23:48)
--- NOTE | 2021-04-12 | DI.US_ITS ---
Exam(s) US RENAL EXAM: US RENAL CLINICAL HISTORY: complicated UTI; hx of renal transplant TECHNIQUE: Ultrasound of both kidneys performed using standard protocol. COMPARISON: US Cardiac from 10/20/[address] ABDOMEN PELVIS W from 04/11/[address] ABDOMEN PELVIS W from 04/11/2021 FINDINGS: [place] KIDNEYS: Both [place] kidneys were apparently not able to be visualized. There is shown to be atrophic by recent CT scan. There is a transplant kidney in the right iliac fossa. This appears unremarkable. Normal cortical t hickness. No calculi. No hydronephrosis. URINARY BLADDER: There is a suprapubic catheter in the urinary bladder. Bladder is relatively empty and difficult to evaluate IMPRESSION: 1. The right iliac fossa transplant kidney exhibits normal size and cortical thickness and without s ignificant focal findings no hydronephrosis. 2. The [place] kidneys were apparently not able to be seen on this ultrasound study. 3. There is a suprapubic catheter in the urinary bladder and the bladder is empty. DATA REPOSITORY:
[2021-04-12 00:16] LABS: COVID-19 PCR Negative (Negative)
[2021-04-12] MEDS: MORPHine 4 MG/ML SYR IVP ×3 (02:47→17:52)
[2021-04-12] MEDS: ACETAMINOPHEN 1,000 MG/100 ML BTL 400 MG IVPB (05:11)
[2021-04-12] MEDS: Heparin 5,000 UNITS/ML VIAL 5000 UNITS SC ×3 (05:12→20:59)
[2021-04-12] MEDS: Hydrocortisone SOD SUC. 100 MG VIAL 50 MG IVP ×3 (05:12→20:58)
[2021-04-12] MEDS: PIPERACILLIN/TAZO 3.375 GM in Normal Saline 50 ML IVPB ×3 (05:52→20:59)
[2021-04-12 07:30] VITALS: BP 150/60; PULSE 68; RESP 20; TEMP 36.8; O2SAT 93
[2021-04-12 07:50] LABS: Lactate 1.2 mmol/L (0.6-1.4)
[2021-04-12 07:53] LABS: Abs Immature Grans 0.03 10^3/uL (0.0-0.06); Absolute Basophil Count 0.02 10^3/uL (0.0-0.2); Absolute Eosinophil Count 0.01 10^3/uL (0.0-0.7); Absolute Lymphocyte Count 0.81 10^3/uL (1.2-3.4); Absolute Monocyte Count 0.08 10^3/uL (0.1-0.8); Absolute Neutrophil Count 4.37 10^3/uL (1.2-6.7); Basophils % 0.4; Eosinophils % 0.2; HCT 31.5 % (36.0-46.0); HGB 9.4 g/dL (11.2-15.7); Immature Grans % 0.6; Lymphocytes % 15.2; MCH 24.5 pg (27.0-33.0); MCHC 29.8 % (32.0-36.0); MCV 82.2 fL (80-95); MPV 8.6 fL (8.0-11.0); Monocytes % 1.5; Neutrophils % 82.1; Nucleated RBC 0 %; Platelet Count 401 10^3/uL (130-400); RBC 3.83 10^6/uL (3.93-5.22); RDW 17.4 % (11.7-14.6); RDW-SD 51.9 fL; WBC 5.32 10^3/uL (4.4-10.8)
[2021-04-12 08:09] LABS: INR 1.1 (0.9-1.1); Prothrombin Time 10.6 sec (9.3-11.0)
[2021-04-12 08:16] LABS: ALT 10 U/L (14-59); AST 12 U/L (15-37); Alkaline Phosphatase 77 U/L (46-116); Anion Gap 6.6 mmol/L (3-11); BUN 20 mg/dL (7-18); Bilirubin, Total 0.3 mg/dL (0.2-1.0); CO2 28.4 mmol/L (21.0-32.0); CREATININE 0.8 mg/dL (0.55-1.02); Calcium 8.6 mg/dL (8.5-10.1); Chloride 104 mmol/L (98-107); Glucose 130 mg/dL (74-106); Magnesium 2.5 mg/dL (1.8-2.4); Potassium 4.2 mmol/L (3.5-5.1); Sodium 139 mmol/L (136-145); TSH (W/Ref FT4) 0.64 uIU/mL (0.36-3.74); Total Protein 7.5 g/dL (6.4-8.2)
[2021-04-12 08:50] LABS: Procalcitonin < 0.1 ng/mL
--- NOTE | 2021-04-12 08:54 | PDOC.CMIN ---
- If Service Date Differs Date of service: 04/12/21 Time of Service: 17:27 Care Management Initial Assess REASON FOR HOSPITALIZATION:: Candice-rectal abscess PAST MEDICAL HISTORY/PAST SURGICAL HISTORY:: Active Problems (Updated 04/11/21 @ 23:33 by Deondre Reynolds). Complicated UTI (urinary tract infection) (Acute). Candice-rectal abscess (Chronic). Ambulatory dysfunction (Chronic). Adrenal insufficiency (Chronic). Hypercoagulable state, primary (Chronic). Hypertension (Chronic). Osteoarthritis of left hip (Chronic). Medical History (Updated 04/11/21 @ 23:33 by Deondre Reynolds). C5 vertebral fracture. Cerebellar lesion. Chronic anticoagulation. Chronic kidney disease. Hyperparathyroidism. Lytic bone lesions on xray. on CT. Neurogenic bladder. Osteoporosis. Peripheral neuropathy. Protein S deficiency. Seizure disorder. TBI (traumatic brain injury). Surgical History (Updated 04/11/21 @ 22:56 by Deondre Reynolds). Colonoscopy - MAC (02/11/15). INO MERINO. Fistula creation. History of kidney transplant. S/P kidney transplant PREVIOUS FUNCTIONAL STATUS/SOCIAL/FAMILY SUPPORTS:: Darlene lives at [facility] She has 2 sisters, Nicol Gruber, who is her legal guardian and Miley Peralta . Both live in the area and are close and supportive. Darlene requires some assistance with ADLs and personal care as well as help with transfers and mobilization, which she receives at [facility]. CURRENT FUNCTIONAL STATUS:: Darlene was sitting up in bed when TRAVIS met with her. She was pleasant and cooperative with the assessment. Darlene stated that she is scheduled to go to [facility] for a procedure today and that she was very hungry. She was NPO for the procedure. TRAVIS was able to inform her that the procedure was rescheduled for tomorrow and that she would be getting lunch momentarily. At Darlene's request, TRAVIS called her sister Nicol and gave her an update. Darlene shared that things have been going really well at [facility] and that she feels she is getting really good care there. ADVANCE DIRECTIVES:: COLST on file Has patient been provided with info about the portal/API?: Yes Did the patient sign up for the portal?: No CODE STATUS:: DNR/DNI INSURANCE COVERAGE / FINANCIAL ISSUES:: Medicare. Medicaid CURRENT HOME/COMMUNITY SERVICES/EQUIPMENT:: Darlene lives at [facility]. PRIMARY CARE PHYSICIAN:: Randall Ling POTENTIAL DISCHARGE NEEDS:: follow up with PCP and plan of care PATIENT/FAMILY EDUCATION NEEDS:: Review of discharge instructions, medications, follow up plan, activity, limitations, Ask Me Three TRANSPORTATION:: via facility van PLAN:: Darlene will likley return to [facility] when medically cleared. She will follow up with facility providers and plan of care and transport via facility van. CM will continue to support Darlene and her discharge needs.
[2021-04-12] MEDS: Tacrolimus 0.5 MG CAP 2 MG PO (08:58)
[2021-04-12] MEDS: levETIRAcetam 500 MG TAB 1500 MG PO ×2 (08:59→19:35)
--- NOTE | 2021-04-12 13:59 | PGE_ITS ---
Date of Service Date of service: 04/12/21 Time of Service: 13:59 Assessment and Plan Assessment and plan (1) Candice-rectal abscess: Status: Chronic Assessment and plan: Continue Zosyn 3.375 g IV slow infusion every 8 hours, await results of wound and blood cultures. Discussed case with interventional radiology at [facility] and plan for down the back procedure for drainage catheter placement tomorrow, arrival 1 pm. We will keep n.p.o. after 8 am tomorrow morning as instructed for procedure tomorrow. (2) Complicated UTI (urinary tract infection): Status: Acute Assessment and plan: Presumably has cystitis but given her chronic kidney disease and status post renal transplant and previous history of pyelonephritis of her transplant kidney and since being treated like a potentially complicated UTI. renal ultrasound: IMPRESSION: 1. The right iliac fossa transplant kidney exhibits normal size and cortical thickness and without significant focal findings no hydronephrosis. 2. The [place] kidneys were apparently not able to be seen on this ultrasound study. 3. There is a suprapubic catheter in the urinary bladder and the bladder is empty. (3) Adrenal insufficiency: Status: Chronic Assessment and plan: Continue home dose of prednisone but will start her on stress dose hydrocortisone for the next 72 hours while she receives treatment for infection. (4) Hypertension: Status: Chronic Assessment and plan: blood pressure stable, monitor Qualifiers: Hypertension type: unspecified Qualified Code(s): I10 - Essential (primary) hypertension (5) Chronic kidney disease: Assessment and plan: Avoid nephrotoxins. Continue her current immunosuppressive therapy for her renal transplant. Qualifiers: Chronic kidney disease stage: unspecified stage Qualified Code(s): N18.9 - Chronic kidney disease, unspecified (6) Discharge planning issues: Status: Acute Assessment and plan: case management following anticipate discharge to home when stable. discussed with DR Matias Subjective Subjective Patient reports: no new complaints, tolerating liquids well, tolerating a regular diet and afebrile; denies nausea Exam Const General: comfortable, no acute distress, frail appearing and ill appearing chronically Orientation: alert, awake and oriented x3 HENMT Head: normal to inspection Resp Effort & Inspection: normal respiratory effort Cardio Rate: regular rate Rhythm: regular rhythm GI Inspection: other (colostomy, with soft stool) Palpation: soft Other: suprapubic catheter in place Neuro General: patient alert and patient awake Extrem General: AV fistula and other (club feet) Objective Last Vital Signs Temp 36.8 C 04/12/21 07:30 Pulse 68 04/12/21 07:30 Resp 20 04/12/21 07:30 BP 150/60 H 04/12/21 07:30 Pulse Ox 93 04/12/21 07:30 Laboratory Results - last 24 hr 04/11/21 04/11/21 04/11/21 18:20 18:20 18:20 WBC 7.08 RBC 3.95 Hgb 9.8 L Hct 32.8 L MCV 83.0 MCH 24.8 L MCHC 29.9 L RDW 17.4 H Plt Count 413 H MPV 8.5 Immature Gran % 0.3 Neutrophils % 66.5 Lymphocytes % 22.9 Monocytes % 7.2 Eosinophils % 2.7 Basophils % 0.4 Nucleated RBC % 0 Absolute Neutrophils 4.71 Absolute Lymphocytes 1.62 Absolute Monocytes 0.51 Absolute Eosinophils 0.19 Absolute Basophils 0.03 PT INR VBG Lactate 1.3 Sodium 140 Potassium 4.1 Chloride 102 Carbon Dioxide 28.6 Anion Gap 9.4 BUN 24 H Creatinine 1.0 Estimated GFR/1.73 m2 57.15 Glucose 103 Calcium 8.5 Magnesium 2.5 H Total Bilirubin 0.3 AST 17 ALT 13 L Alkaline Phosphatase 80 C-Reactive Protein Total Protein 7.9 Albumin 3.2 L Lipase 79 Procalcitonin TSH Urine Color Urine Clarity Urine pH Ur Specific [place] Urine Protein Urine Ketones Urine Blood Urine Nitrite Urine Bilirubin Urine Urobilinogen Ur Leukocyte Esterase Urine RBC Urine WBC Ur Epithelial Cells Urine Crystals Urine Bacteria Urine Mucus Ur Culture Indicated? Urine Glucose COVID-19 Source SARS-CoV-2 (PCR) 04/11/21 04/11/21 04/12/21 20:15 22:10 07:38 WBC RBC Hgb Hct MCV MCH MCHC RDW Plt Count MPV Immature Gran % Neutrophils % Lymphocytes % Monocytes % Eosinophils % Basophils % Nucleated RBC % Absolute Neutrophils Absolute Lymphocytes Absolute Monocytes Absolute Eosinophils Absolute Basophils PT INR VBG Lactate Sodium 139 Potassium 4.2 Chloride 104 Carbon Dioxide 28.4 Anion Gap 6.6 BUN 20 H Creatinine 0.8 Estimated GFR/1.73 m2 >= 60.00 Glucose 130 H Calcium 8.6 Magnesium 2.5 H Total Bilirubin 0.3 AST 12 L ALT 10 L Alkaline Phosphatase 77 C-Reactive Protein 3.00 H Total Protein 7.5 Albumin 3.0 L Lipase Procalcitonin TSH 0.64 Urine Color Yellow Urine Clarity Cloudy Urine pH 7.0 Ur Specific [place] 1.010 Urine Protein 30 H Urine Ketones Negative Urine Blood Small H Urine Nitrite Positive H Urine Bilirubin Negative Urine Urobilinogen 0.2 Ur Leukocyte Esterase Negative Urine RBC 3-5 H Urine WBC 20-50 H Ur Epithelial Cells Negative Urine Crystals Many Amorphous Urine Bacteria Few Urine Mucus Negative Ur Culture Indicated? Yes Urine Glucose Negative COVID-19 Source Nasal/Nares SARS-CoV-2 (PCR) Negative 04/12/21 04/12/21 04/12/21 07:38 07:38 07:38 WBC 5.32 RBC 3.83 L Hgb 9.4 L Hct 31.5 L MCV 82.2 MCH 24.5 L MCHC 29.8 L RDW 17.4 H Plt Count 401 H MPV 8.6 Immature Gran % 0.6 Neutrophils % 82.1 Lymphocytes % 15.2 Monocytes % 1.5 Eosinophils % 0.2 Basophils % 0.4 Nucleated RBC % 0 Absolute Neutrophils 4.37 Absolute Lymphocytes 0.81 L Absolute Monocytes 0.08 L Absolute Eosinophils 0.01 Absolute Basophils 0.02 PT 10.6 INR 1.1 VBG Lactate 1.2 Sodium Potassium Chloride Carbon Dioxide Anion Gap BUN Creatinine Estimated GFR/1.73 m2 Glucose Calcium Magnesium Total Bilirubin AST ALT Alkaline Phosphatase C-Reactive Protein Total Protein Albumin Lipase Procalcitonin < 0.1 TSH Urine Color Urine Clarity Urine pH Ur Specific [place] Urine Protein Urine Ketones Urine Blood Urine Nitrite Urine Bilirubin Urine Urobilinogen Ur Leukocyte Esterase Urine RBC Urine WBC Ur Epithelial Cells Urine Crystals Urine Bacteria Urine Mucus Ur Culture Indicated? Urine Glucose COVID-19 Source SARS-CoV-2 (PCR)
[2021-04-12] MEDS: Venlafaxine 37.5 MG CAPCR 75 MG PO (14:11)
[2021-04-12] MEDS: Magnesium Oxide 400 MG TAB PO (14:11)
[2021-04-12] MEDS: Mirabegron 50 MG TABCR PO (14:11)
[2021-04-12] MEDS: predniSONE 5 MG TAB PO (14:11)
[2021-04-12] MEDS: Normal Saline Flush 10 ML SYR IVP ×4 (14:12→20:59)
[2021-04-12 16:00] VITALS: BP 115/65; PULSE 77; RESP 19; TEMP 36.7; O2SAT 95
[2021-04-12] MEDS: Senna TAB 2 TAB PO (19:36)
[2021-04-12] MEDS: Docusate Sodium 100 MG CAP PO (19:36)
[2021-04-12] MEDS: Tacrolimus 0.5 MG CAP 1 MG PO (20:59)
[2021-04-13 00:12] VITALS: BP 158/67; PULSE 82; RESP 20; TEMP 37.4; O2SAT 95
[2021-04-13] MEDS: MORPHine 4 MG/ML SYR IVP ×2 (00:29→11:32)
[2021-04-13] MEDS: PIPERACILLIN/TAZO 3.375 GM in Normal Saline 50 ML IVPB ×2 (05:27→18:09)
[2021-04-13] MEDS: Hydrocortisone SOD SUC. 100 MG VIAL 50 MG IVP ×2 (05:27→22:27)
[2021-04-13] MEDS: Normal Saline Flush 10 ML SYR IVP ×4 (05:28→18:09)
[2021-04-13] MEDS: Heparin 5,000 UNITS/ML VIAL 5000 UNITS SC ×2 (05:28→22:27)
[2021-04-13 06:45] LABS: Abs Immature Grans 0.02 10^3/uL (0.0-0.06); Absolute Basophil Count 0.01 10^3/uL (0.0-0.2); Absolute Eosinophil Count 0.01 10^3/uL (0.0-0.7); Absolute Monocyte Count 0.37 10^3/uL (0.1-0.8); Absolute Neutrophil Count 2.99 10^3/uL (1.2-6.7); Basophils % 0.2; Eosinophils % 0.2; HCT 29.5 % (36.0-46.0); HGB 8.9 g/dL (11.2-15.7); Immature Grans % 0.4; Lymphocytes % 33.3; MCH 25.2 pg (27.0-33.0); MCHC 30.2 % (32.0-36.0); MCV 83.6 fL (80-95); MPV 8.7 fL (8.0-11.0); Monocytes % 7.3; Neutrophils % 58.6; Nucleated RBC 0 %; Platelet Count 361 10^3/uL (130-400); RBC 3.53 10^6/uL (3.93-5.22); RDW 17.2 % (11.7-14.6)
[2021-04-13 06:55] LABS: Magnesium 2.6 mg/dL (1.8-2.4)
[2021-04-13 07:01] LABS: ALT 10 U/L (14-59); AST 12 U/L (15-37); Albumin 2.9 g/dL (3.4-5.0); Alkaline Phosphatase 68 U/L (46-116); BUN 21 mg/dL (7-18); Bilirubin, Total 0.2 mg/dL (0.2-1.0); CREATININE 0.8 mg/dL (0.55-1.02); Calcium 8.5 mg/dL (8.5-10.1); Chloride 104 mmol/L (98-107); Glucose 118 mg/dL (74-106); Potassium 3.8 mmol/L (3.5-5.1); Sodium 140 mmol/L (136-145); Total Protein 7.4 g/dL (6.4-8.2)
[2021-04-13 07:31] VITALS: BP 107/64; PULSE 77; RESP 19; TEMP 36; O2SAT 95
[2021-04-13] MEDS: Mirabegron 50 MG TABCR PO (07:34)
[2021-04-13] MEDS: Venlafaxine 37.5 MG CAPCR 75 MG PO (07:34)
[2021-04-13] MEDS: Tacrolimus 0.5 MG CAP 2 MG PO (07:34)
[2021-04-13] MEDS: levETIRAcetam 500 MG TAB 1500 MG PO ×2 (07:35→19:45)
[2021-04-13] MEDS: Senna TAB 2 TAB PO ×2 (07:36→19:46)
[2021-04-13] MEDS: Sertraline 50 MG TAB 150 MG PO (07:36)
--- NOTE | 2021-04-13 09:39 | PDOC.CMPRO ---
- If Service Date Differs Date of service: 04/13/21 Time of Service: 09:39 Care Management Progress Note S/O: Darlene is going to [facility] today to for drainage of her calvin rectal abscess, and catheter placement. She will be transported via EMS, coordinated by RN Storage Battery Tester. She will go down and back today, CM will follow up with her tomorrow regarding discharge planning needs. She will return to [facility] once she is medically ready. A: Darlene is a 55 year old female admitted to [facility] on 04/11/21 with a perirectal abscess, UTI. P: Darlene will likley return to [facility] when medically cleared. She will follow up with facility providers and plan of care and transport via facility van. CM will continue to support Darlene and her discharge needs.
--- NOTE | 2021-04-13 10:54 | W.PM.PROGNOT ---
Date of Service Date of service: 04/13/21 Time of Service: 10:54 Assessment and Plan Assessment and plan (1) Candice-rectal abscess: Status: Chronic Assessment and plan: Continue Zosyn 3.375 g IV slow infusion every 8 hours day 2, await results of wound and blood cultures. Discussed case with interventional radiology at [facility] and plan for down the back procedure for drainage catheter placement today, arrival 1 pm. NPO since 8 am as instructed (2) Complicated UTI (urinary tract infection): Status: Acute Assessment and plan: Presumably has cystitis but given her chronic kidney disease and status post renal transplant and previous history of pyelonephritis of her transplant kidney and since being treated like a potentially complicated UTI. renal ultrasound: IMPRESSION: 1. The right iliac fossa transplant kidney exhibits normal size and cortical thickness and without significant focal findings no hydronephrosis. 2. The [place] kidneys were apparently not able to be seen on this ultrasound study. 3. There is a suprapubic catheter in the urinary bladder and the bladder is empty. (3) Adrenal insufficiency: Status: Chronic Assessment and plan: Continue home dose of prednisone but will start her on stress dose hydrocortisone for the next 72 hours while she receives treatment for infection. (4) Hypertension: Status: Chronic Assessment and plan: blood pressure stable, monitor Qualifiers: Hypertension type: unspecified Qualified Code(s): I10 - Essential (primary) hypertension (5) Chronic kidney disease: Assessment and plan: Avoid nephrotoxins. Continue her current immunosuppressive therapy for her renal transplant. Qualifiers: Chronic kidney disease stage: unspecified stage Qualified Code(s): N18.9 - Chronic kidney disease, unspecified (6) Discharge planning issues: Status: Acute Assessment and plan: case management following anticipate discharge to home when stable. discussed with DR Matias Subjective Subjective Patient reports: no new complaints and afebrile Interval history since last seen: has been NPO since 8 am for planned procedure at [facility]. Exam Const General: comfortable, no acute distress, frail appearing and ill appearing chronically Orientation: alert, awake and oriented x3 HENMT Head: normal to inspection Resp Effort & Inspection: normal respiratory effort Cardio Rate: regular rate Rhythm: regular rhythm GI Inspection: other (colostomy, with soft stool) Palpation: soft Neuro General: patient alert and patient awake Extrem General: AV fistula and other (club feet) Objective Last Vital Signs Temp 36.0 C L 04/13/21 07:31 Pulse 77 04/13/21 07:31 Resp 19 04/13/21 07:31 BP 107/64 04/13/21 07:31 Pulse Ox 95 04/13/21 07:31 Laboratory Results - last 24 hr 04/13/21 04/13/21 04/13/21 06:20 06:20 06:20 WBC 5.10 RBC 3.53 L Hgb 8.9 L Hct 29.5 L MCV 83.6 MCH 25.2 L MCHC 30.2 L RDW 17.2 H Plt Count 361 MPV 8.7 Immature Gran % 0.4 Neutrophils % 58.6 Lymphocytes % 33.3 Monocytes % 7.3 Eosinophils % 0.2 Basophils % 0.2 Nucleated RBC % 0 Absolute Neutrophils 2.99 Absolute Lymphocytes 1.70 Absolute Monocytes 0.37 Absolute Eosinophils 0.01 Absolute Basophils 0.01 Sodium 140 Potassium 3.8 Chloride 104 Carbon Dioxide 28.0 Anion Gap 8.0 BUN 21 H Creatinine 0.8 Estimated GFR/1.73 m2 >= 60.00 Glucose 118 H Calcium 8.5 Magnesium 2.6 H Total Bilirubin 0.2 AST 12 L ALT 10 L Alkaline Phosphatase 68 Total Protein 7.4 Albumin 2.9 L
--- NOTE | 2021-04-13 11:35 | UCONE_ITS ---
Date of service: 04/13/21 Time of Service: 11:35 Assessment and Plan Assessment and plan (1) Incontinence in female: Status: Acute Assessment and plan: This has been a chronic issue for this patient and seems to worsen when there is pressure placed on the bladder from external sources such as constipation. Some of the leakage may improve after today's drainage procedure, but I suspect she will continue to have some degree of leakage even after the procedure. Our primary goal is to paralyze these patient's bladders. She is already on the maximum dose of beta 3 agonist. We certainly could add in an anticholinergic, but we would need to be mindful of the GI side effects of this class of medic ation. Otherwise, her options would include surgical treatments. We could inject Botox into the detrusor muscle. This particular treatment can be done with sedation, but only lasts for about 6 months before a repeat injection would be necessary. Her other surgical options involve much bigger/riskier procedures and would not be recommended in this patient. Those options would include an augmentation cystoplasty or a more proximal drainage procedure of urine directly from the transplanted kidney. Larger catheters and larger catheter balloons are not helpful in these cases. Stoma therapy specialists can sometimes fit a collection device around the suprapubic site stoma to collect/divert the urine away from the skin. History of Present Illness History of Present Illness Chief Complaint: Urinary incontinence Narrative: This is a 55-year-old woman who has a history of renal failure and a neurogenic bladder. She has received renal transplantation. Her neurogenic bladder was managed with clean intermittent catheterization. The patient has hip dysplasia and it became quite painful for her to be positioned for CIC. Ultimately, the patient and her family elected to have continuous bladder drainage. She has had a suprapubic tube in place for the past few years. She has had leakage both through the urethra and around the catheter chronically. Historically, the leakage tends to worsen when she gets constipated. Previously, she had no improvement with anticholinergic medications, she is currently on beta 3 agonists. She has never been on combination therapy. We have had discussions about injections of Botox into the detrusor muscle to attempt to paralyze the bladder maximally. Back in October of this year, she had a colostomy placed. She did have slow output from the colostomy and continues to require a bowel regimen. The procedure was performed by the general surgery department down at [facility]. She is followed by their surgeons and wound care specialists. She is currently hospitalized with a perirectal abscess that is draining. She is on her way down to [facility] for a drainage pr ocedure by interventional radiology. On admission, her urinalysis and urine culture was suspicious for bacteriuria. She is on antibiotics. She is not having any fevers or chills. 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 Neurogenic bladder Osteoporosis Peripheral neuropathy Protein S deficiency Seizure disorder TBI (traumatic brain injury) Surgical History (Updated 04/11/21 @ 22:56 by Deondre Reynolds) Colonoscopy - MAC (02/11/15) INO MERINO Fistula creation History of kidney transplant S/P kidney transplant Social History Smoking/Tobacco Use Status: Never Smoking risk assessment performed?: Yes Alcohol Intake: never Drug use: Never Substance use type: does not use Do you feel safe at home: Yes Do you feel safe in your relationship?: Yes Additional Social history: Lives at [facility] and Exam Narrative Exam Narrative: She is seen lying in bed in her hospital room. She does not appear septic or toxic Her vital signs are documented elsewhere in the chart Her suprapubic stoma site is clean with no surrounding erythema or ecchymosis She is awake and alert Results Last Vital Signs Temp 36.0 C L 04/13/21 07:31 Pulse 77 04/13/21 07:31 Resp 19 04/13/21 07:31 BP 107/64 04/13/21 07:31 Pulse Ox 95 04/13/21 07:31 Labs Result diagrams: 04/13/21 06:20 04/13/21 06:20 Labs: Laboratory Results - last 24 hr 04/13/21 04/13/21 04/13/21 06:20 06:20 06:20 WBC 5.10 RBC 3.53 L Hgb 8.9 L Hct 29.5 L MCV 83.6 MCH 25.2 L MCHC 30.2 L RDW 17.2 H Plt Count 361 MPV 8.7 Immature Gran % 0.4 Neutrophils % 58.6 Lymphocytes % 33.3 Monocytes % 7.3 Eosinophils % 0.2 Basophils % 0.2 Nucleated RBC % 0 Absolute Neutrophils 2.99 Absolute Lymphocytes 1.70 Absolute Monocytes 0.37 Absolute Eosinophils 0.01 Absolute Basophils 0.01 Sodium 140 Potassium 3.8 Chloride 104 Carbon Dioxide 28.0 Anion Gap 8.0 BUN 21 H Creatinine 0.8 Estimated GFR/1.73 m2 >= 60.00 Glucose 118 H Calcium 8.5 Magnesium 2.6 H Total Bilirubin 0.2 AST 12 L ALT 10 L Alkaline Phosphatase 68 Total Protein 7.4 Albumin 2.9 L
--- NOTE | 2021-04-13 12:46 | PHA.REVIEW ---
Pharmacy Admission Review - Admission Clinical Review (Last Updated 04/11/21 @ 22:56 by Deondre Reynolds) Incontinence in female (Acute) Discharge planning issues (Acute) Complicated UTI (urinary tract infection) (Acute) codeine Allergy (Unverified 04/11/21 18:38) divalproex sodium [From Depakote] Allergy (Unverified 04/11/21 18:38) povidone-iodine [From Betadine] Adverse Reaction (Unverified 04/11/21 18:38) Skin Rash soap [From Betadine] Adverse Reaction (Unverified 04/11/21 18:38) Skin Rash Resuscitation Status DNR/DNI Weight 80.195 kg - Renal Dosing Renal Dosing: BUN 21 mg/dL (7-18) H 04/13/21 06:20 Creatinine 0.8 mg/dL (0.55-1.02) 04/13/21 06:20 Medications needing adjustments: Reviewed List of meds needing interventions: eCrCl 72, orders ok - Anticoagulation Anticoagulation: Hgb 8.9 g/dL (11.2-15.7) L 04/13/21 06:20 Hct 29.5 % (36.0-46.0) L 04/13/21 06:20 Plt Count 361 10^3/uL (130-400) 04/13/21 06:20 INR 1.1 (0.9-1.1) 04/12/21 07:38 Creatinine 0.8 mg/dL (0.55-1.02) 04/13/21 06:20 DVT Prophylaxis: Reviewed Medications: Heparin - Opiate Usage Evaluate Pain Scale/Pains Meds: Reviewed Scheduled Bowel Reg ordered if on Opiates?: Yes (prn + maggie senna) - Relevant Labs Sodium 140 mmol/L (136-145) 04/13/21 06:20 Potassium 3.8 mmol/L (3.5-5.1) 04/13/21 06:20 Chloride 104 mmol/L (98-107) 04/13/21 06:20 Magnesium 2.6 mg/dL (1.8-2.4) H 04/13/21 06:20 C-Reactive Protein 3.00 mg/dL (0.0-0.3) H 04/12/21 07:38 Electrolytes, C-Reactive P, ESR: Reviewed (PO magox is on hold) - DM Control DM Control: Glucose 118 mg/dL (74-106) H 04/13/21 06:20 Insulin Dosing: N/A - Heart Failure/SC EF%, SHEILA's, B-Blockers, Diuretics: N/A - BP Control BP Control: Blood Pressure 107/64 If elevated: Reviewed List meds needing interventions: on lasix 20mg bid at home - Qtc Review If Elevated: N/A - IV to PO Switch IV Medications: Reviewed - Home Meds Home Med List reviewed: Reviewed Relevent Home Meds Not ordered & why?: furosemide not ordered, rest ordered - Current meds Current Medication Order Review: Reviewed (Zosyn 3.375 (day 2, extended interval) for abscess)
[2021-04-13 19:35] VITALS: BP 115/64; PULSE 72; RESP 16; TEMP 36.2; O2SAT 97
[2021-04-13] MEDS: Tacrolimus 0.5 MG CAP 1 MG PO (22:28)
[2021-04-13 23:50] VITALS: BP 125/69; PULSE 72; RESP 16; TEMP 36.8; O2SAT 97
[2021-04-14] MEDS: PIPERACILLIN/TAZO 3.375 GM in Normal Saline 50 ML IVPB ×2 (02:30→10:56)
[2021-04-14] MEDS: Heparin 5,000 UNITS/ML VIAL 5000 UNITS SC (06:20)
[2021-04-14] MEDS: Hydrocortisone SOD SUC. 100 MG VIAL 50 MG IVP (06:20)
[2021-04-14 06:59] LABS: Abs Immature Grans 0.03 10^3/uL (0.0-0.06); Absolute Basophil Count 0.02 10^3/uL (0.0-0.2); Absolute Eosinophil Count 0.02 10^3/uL (0.0-0.7); Absolute Lymphocyte Count 1.12 10^3/uL (1.2-3.4); Absolute Monocyte Count 0.28 10^3/uL (0.1-0.8); Absolute Neutrophil Count 3.82 10^3/uL (1.2-6.7); Basophils % 0.4; Eosinophils % 0.4; HCT 31.4 % (36.0-46.0); HGB 9.2 g/dL (11.2-15.7); Immature Grans % 0.6; Lymphocytes % 21.2; MCH 24.9 pg (27.0-33.0); MCHC 29.3 % (32.0-36.0); MCV 84.9 fL (80-95); MPV 8.6 fL (8.0-11.0); Monocytes % 5.3; Neutrophils % 72.1; Nucleated RBC 0 %; Platelet Count 359 10^3/uL (130-400); RDW 17.8 % (11.7-14.6); RDW-SD 54.4 fL; WBC 5.29 10^3/uL (4.4-10.8)
--- NOTE | 2021-04-14 07:10 | W.PM.PROGNOT ---
Date of Service Date of service: 04/14/21 Time of Service: 07:10 Assessment and Plan Assessment and plan (1) Incontinence in female: Status: Acute Assessment and plan: She may have some improvement in the leakage around her catheter with a smaller balloon and drainage of the perirectal abscess. Otherwise, my suggestions from yesterday stand. If we think her bowel symptoms can tolerate it, we could add an anticholinergic medication to her beta 3 agonist. We can also contact the stoma therapy specialist for suggestions for a collection device that might fit around the suprapubic tube. Subjective Subjective Interval history since last seen: The patient tolerated her trip to and from [facility] yesterday for her perirectal abscess drainage. Her initial Gram stain is indicating gram-positive cocci. She continues to have leakage around her suprapubic tube. In reviewing her ER records, it appears that a 16 [place] catheter with 30 cc of fluid in the balloon was placed. Exam Narrative Exam Narrative: She looks quite comfortable this morning. I went ahead and deflated her catheter balloon and indeed there were 30 cc of sterile water in the balloon. I removed her catheter and replaced it with a 16 [place] Silastic coated catheter and inflated the balloon with 10 cc of sterile water. I hooked the catheter to gravity drainage. She tolerated the procedure with no difficulty. Objective Last Vital Signs Temp 36.8 C 04/13/21 23:50 Pulse 72 04/13/21 23:50 Resp 16 04/13/21 23:50 BP 125/69 04/13/21 23:50 Pulse Ox 97 04/13/21 23:50 Laboratory Results - last 24 hr 04/14/21 06:20 WBC 5.29 RBC 3.70 L Hgb 9.2 L Hct 31.4 L MCV 84.9 MCH 24.9 L MCHC 29.3 L RDW 17.8 H Plt Count 359 MPV 8.6 Immature Gran % 0.6 Neutrophils % 72.1 Lymphocytes % 21.2 Monocytes % 5.3 Eosinophils % 0.4 Basophils % 0.4 Nucleated RBC % 0 Absolute Neutrophils 3.82 Absolute Lymphocytes 1.12 L Absolute Monocytes 0.28 Absolute Eosinophils 0.02 Absolute Basophils 0.02
[2021-04-14 07:12] LABS: ALT 11 U/L (14-59); AST 10 U/L (15-37); Alkaline Phosphatase 64 U/L (46-116); Anion Gap 7.4 mmol/L (3-11); BUN 23 mg/dL (7-18); Bilirubin, Total 0.3 mg/dL (0.2-1.0); CO2 26.6 mmol/L (21.0-32.0); CREATININE 0.8 mg/dL (0.55-1.02); Calcium 8.3 mg/dL (8.5-10.1); Chloride 107 mmol/L (98-107); Glucose 124 mg/dL (74-106); Sodium 141 mmol/L (136-145); Total Protein 7.4 g/dL (6.4-8.2)
[2021-04-14 08:06] VITALS: BP 106/62; PULSE 95; RESP 18; TEMP 36.6; O2SAT 91
[2021-04-14 08:30] VITALS: O2SAT 93
[2021-04-14] MEDS: Tacrolimus 0.5 MG CAP 2 MG PO (08:35)
[2021-04-14] MEDS: Mirabegron 50 MG TABCR PO (08:35)
[2021-04-14] MEDS: levETIRAcetam 500 MG TAB 1500 MG PO (08:35)
[2021-04-14] MEDS: Senna TAB 2 TAB PO (08:35)
[2021-04-14] MEDS: Venlafaxine 37.5 MG CAPCR 75 MG PO (08:35)
[2021-04-14] MEDS: predniSONE 5 MG TAB PO (08:36)
[2021-04-14] MEDS: Sertraline 50 MG TAB 150 MG PO (08:36)
--- NOTE | 2021-04-14 10:01 | CMPROGNOTE_ITS ---
- If Service Date Differs Date of service: 04/14/21 Time of Service: 10:01 Care Management Progress Note S/O: Darlene Chiang: Darlene is a 55 year old female admitted to [facility] on 04/11/21 with a perirectal abscess, UTI. P: Darlene will likley return to [facility] when medically cleared. She w ill follow up with facility providers and plan of care and transport via facility van. will continue to support Darlene and her discharge needs.
--- NOTE | 2021-04-14 10:01 | PDOC.CMPRO ---
- If Service Date Differs Date of service: 04/14/21 Time of Service: 10:01 Care Management Progress Note S/O: Darlene Chiang: Darlene is a 55 year old female admitted to [facility] on 04/11/21 with a perirectal abscess, UTI. P: Darlene will likley return to [facility] when medically cleared. She will follow up with facility providers and plan of care and transport via facility van. will continue to support Darlene and her discharge needs.
--- NOTE | 2021-04-14 11:32 | W.NUTRFU ---
Date of service: 04/14/21 Time of Service: 11:32 Nutrition Note NOTE: Weight fairly stable over the past few months. She has gained weight over the years looking back at her weight in [employer]. She has good PO intake on a regular diet. No nutritional issues noted at this time. Will continue to follow and monitor for any changes. Time Spent in Nutritional Counseling and Treatment: 0
--- NOTE | 2021-04-14 11:51 | DSE_ITS ---
Date of service: 04/14/21 Time of Service: 11:51 DS: Diagnosis Discharge Diagnosis (1) Candice-rectal abscess: Start date: 04/14/21 Start time: 11:52 Status: Chronic Asessment and Plan: Patient had draining of candice-rectal abscess with down and back yesterday at [facility]. Drain She is feeling well. She has been on zosyn. Will transition to Cipro BID x 14 days with PCP f/u in 2 weeks. If they feel she requires longer dosing will defer to PCP for further management, probiotic as well. She will need to f/u with [facility] to have drain removed. (2) Complicated UTI (urinary tract infection): Start date: 04/14/21 Start time: 11:55 Status: Acute Asessment and Plan: Urine cx grew klebsiella pneumonia sensitive to everything but ampicillin and nitrofurantoin Will place on cipro due to both complicated UTI and abscess Catheter exchanged. (3) Adrenal insufficiency: Start date: 04/14/21 Start time: 11:57 Status: Chronic Asessment and Plan: S/p renal transplant, on prograf and prednisone, these were continued with stress dose steroids given for infection (4) Hypertension: Start date: 04/14/21 Start time: 11:59 Status: Chronic Asessment and Plan: she was stable while in the hospital, continue home regimen discussed with Dr. Matias Discharge Plan Disposition Patient Disposition: SNF (LEVEL 1) [facility] Condition: Improving Discharge Details Reason For Visit: Perirectal Abscess, UTI Admit Date/Time: 04/11/21 21:38 Admit Provider: Deondre Reynolds Attending Provider: Deondre Reynolds Primary Care Provider: Randall Ling Hospital Course Hospital Course: 55 yo female with PMH Renal transplant, HTN, OA, TBI, CKD, admitted to [facility] from health and rehab after being found to have purulent drainage from her suprapubic catheter.CT scan of the chest abdomen and pelvis which demonstrated a 12 x 5 x 3.6 cm thick-walled fluid collection in the left perirectal soft tissue with irregular margins consistent with perirectal abscess. Laboratory studies include a CBC that showed no leukocytosis with a normal WBC of 7000. Stable chronic anemia hemoglobin 9.8 g hematocrit 32%. Blood lactate level is normal at 1.3. CMP showed slightly elevated BUN of 24 with a normal creatinine 1.0 and normal LFTs and normal lipase. Albumin is slightly low at 3.2. Urinalysis was cloudy with 30 mg/dL protein small amount of blood positive for urine nitrites with 3-5 red cells and 20-50 white cells per high-powered field and a few bacteria. She was admitted for further management. Initiated on zosyn. [facility] was called and she was sent for a down and back yesterday with IR to drain the abscess with drain placement. Her urine cx grew klebsiella pneumonia greater than 100,000. Given this is a complicated UTI she will need a longer course of antibiotics. Blood cx negative. Cx sensitive to most everything, given though both the abscess and the UTI will treat with cipro. Will need two week f/u with PCP and f/u with [facility] as planned for drain removal. She is feeling well and is ready for discharge back to H/R therefore she is being discharged back today. She denies CP, SOB, N/V/D. Home Meds and New Rx's Prescriptions: New ciprofloxacin HCl 500 mg Tablet 500 mg PO BID Qty: 28 RF: 0 oxycodone-acetaminophen [Percocet] 5-325 mg tablet 1 tab PO Q6H PRNQty: 20 RF: 0 Bio-K plus 50 billion cell capsule,delayed release(DR/EC) 1 cap PO DAILY Qty: 30 RF: 0 Continued guaifenesin 100 mg/5 mL liquid 400 mg PO Q4H PRNRF: 0 levetiracetam [Keppra] 750 MG tablet 1,500 mg PO BID RF: 0 Myrbetriq 50 mg tablet extended release 24 hr 50 mg PO DAILY RF: 0 Liquid Protein Fortifier 1 gram-4 kcal/6 mL Liquid 30 ml PO DAILY RF: 0 d-mannose 500 mg Capsule 2,000 mg PO DAILY RF: 0 morphine 15 mg tablet extended release 30 mg PO QHS RF: 0 Biofreeze (menthol) 4 % Gel 1 applic TOPICAL TID RF: 0 sertraline 50 mg tablet 150 mg PO DAILY RF: 0 acetaminophen 325 mg Tablet 650 mg PO Q6H PRNRF: 0 Fleet Enema 19-7 gram/118 mL Enema 118 ml MO DAILY PRNRF: 0 simethicone 125 mg Tablet,Chewable 125 mg PO TID PRNRF: 0 morphine 15 mg tablet extended release 15 mg PO QAM RF: 0 venlafaxine 75 mg Tablet Extended Release 24hr 75 mg PO DAILY RF: 0 sennosides [Senokot] 8.6 mg tablet 2 tab PO BID RF: 0 tacrolimus 0.5 mg capsule 1 mg PO QHS RF: 0 mycophenolate mofetil 250 mg Capsule 250 mg PO BID RF: 0 prednisone 5 mg Tablet 5 mg PO Q OTHER DAY RF: 0 magnesium oxide 400 mg Capsule 400 mg PO TID RF: 0 furosemide 20 mg Tablet 20 mg PO BID Qty: 0 RF: 0 magnesium hydroxide [Milk of Magnesia] 400 mg/5 mL Suspension 30 ml PO BID PRN PRNQty: 0 RF: 0 bisacodyl 10 mg Suppository 10 mg MO BID PRN PRNQty: 0 RF: 0 nystatin 100,000 unit/gram cream 100,000 applic TOPICAL PRN PRNRF: 0 polyethylene glycol 3350 17 gram/dose Powder 17 g PO DAILY PRNRF: 0 tacrolimus 0.5 mg capsule 2 mg PO QAM RF: 0 Discharge Instructions Instructions: Urinary Tract Infection in Women (DC), Abscess (GEN) Additional Instructions: F/u with [facility] on 04/27 F/u with PCP in 2 weeks Take antibiotics as prescribed Take pain medication as needed for pain Take probiotic daily Referrals: [facility] [Outside] - 04/27/21 10:10 am (Interventional Radiology 3Z follow up appt on 04/27/21 for 1010 arrival time.) Activity:: Activity as Tolerated Equipment/Supplies:: No Equipment Needed Diet:: As Tolerated Discharge Orders Discharge Orders: Discharge Order (Routine); Ordered 04/14/21 Ordered By: Joyce Vasquez DS: Summary Time Spent with Patient providing and/or coordinating discharge services: Greater than 30 minutes Status at Discharge Functional status at discharge: bed bound Overall status at discharge: patient is progressing back to baseline Mental Status: mental status grossly normal Speech and Movement: speech and movement normal Mood: congruent mood Affect: normal affect Exam Const General: comfortable, no acute distress, frail appearing and ill appearing chronically Orientation: alert, awake and oriented x3 HENMT Head: normal to inspection Resp Effort & Inspection: normal respiratory effort Cardio Rate: regular rate Rhythm: regular rhythm GI Inspection: other (colostomy, with soft stool) Palpation: soft Neuro General: patient alert and patient awake Extrem General: AV fistula and other (club feet) Psych Mental Status: mental status grossly normal Speech and Movement: speech and movement normal Mood: congruent mood Affect: normal affect DS: Data Vitals/I&O Vitals and I&O: Vital Signs Temperature 36.6 C 04/14/21 08:06 Temperature Source Tympanic 04/14/21 08:06 Pulse 95 H 04/14/21 08:06 Pulse Rhythm Regular 04/14/21 05:00 Respiratory Rate 18 04/14/21 08:06 Respiratory Effort Non-Labored 04/14/21 05:00 Respiratory Depth Normal 04/14/21 05:00 Respiratory Pattern Normal 04/14/21 05:00 Blood Pressure 106/62 04/14/21 08:06 Pulse Oximetry 91 L 04/14/21 08:06 Oxygen Delivery Method Room Air 04/14/21 08:06 Oxygen Flow Rate 0 04/14/21 08:06 Pain Level 0 04/14/21 08:06 Comment 04/13/21 00:12 Intake & Output 04/13/21 04/13/21 04/14/21 11:59 23:59 11:59 Intake Total 300 / 410 110 / 410 55 / 55 Output Total 100 / 120 20 / 120 120 / 120 Balance 200 / 290 90 / 290 -65 / -65 Weight 80.195 kg 80.195 kg 79.8 kg Intake: IV 50 / 100 50 / 100 50 / 50 Oral 250 / 310 60 / 310 Injectate 5 / 5 coccyx 5 / 5 Output: Drainage 20 / 20 20 / 20 coccyx 20 / 20 20 / 20 Urine 100 / 100 Stool 100 / 100 Other: Urine Color Yellow Straw Urine Appearance Clear Clear Clear Comment suprapubic leaking still. suprapubic leaking, dressing around site change. aware Still a little bit of leaking. Data Completed and Pending Completed studies during hospitalization [Text1]: Exam(s) a CT:CT abdomen & pelvis w Exam(s) CT ABDOMEN PELVIS W EXAM: CT ABDOMEN PELVIS W CLINICAL HISTORY: increased rectal pain, recent abscess. TECHNIQUE: Imaging Protocol: Axial computed tomography images with coronal and sagittal reformatted images were created and reviewed CONTRAST MATERIAL: Intravenous: Omnipaque 100cc Oral: None COMPARISON: CT CT ABDOMEN PELVIS WO from 11/17/[address] ABDOMEN PELVIS W from 02/16/[address] ABDOMEN PELVIS W from 02/16/2021 FINDINGS: VISUALIZED LUNG BASES: The amount of infiltrate in the left lower lobe posterior basal segment has decreased but not completely resolved. No pleural effusion evident.. ABDOMEN: There is no ascites. LIVER: There are no focal hepatic lesions evident . GALLBLADDER/BILIARY: No obvious gallbladder pathology. CBD is not dilated. PANCREAS: No evidence of pancreatic mass nor dilatation of the pancreatic duct. SPLEEN: Spleen is not enlarged. No obvious intrasplenic lesions. Splenic and portal veins are patent. ADRENALS: There are no significant adrenal masses. KIDNEYS:Atrophic [place] kidneys again noted. The right pelvic transplant kidney appears satisfactory normal cortical thickness and no obstruction.. ABDOMINAL AORTA: Abdominal aorta is not enlarged. LYMPH NODES:There is no retroperitoneal nor paraaortic adenopathy. ABDOMINAL WALL: Left sided colostomy is again noted. Appears unchanged. GI: There is no evidence of bowel obstruction, free air, nor abscess. PELVIS: GI: No evidence of appendicitis.No evidence of sigmoid diverticulitis. LYMPH NODES: There is no intrapelvic nor inguinal adenopathy. REPRODUCTIVE: Age-appropriate URINARY BLADDER: Suprapubic catheter again noted in the anterior aspect of the otherwise collapsed urinary bladder. Appears to be calcification in the bladder. OTHER: The previously described left para rectal abscess is again noted. It is again noted to extend from the immediate pre coccygeal region towards the left acetabulum. Exhibits very little if any significant change in size when compared to prior study of 02/16/2021. It is again noted to extend to the left obturator internus muscle. The separate presacral component also exhibits minimal if any significant change. OSSEOUS: Advanced degenerative changes left hip again noted. No evidence of osteomyelitis. IMPRESSION: 1. The size of the left para rectal abscess exhibits minimal if any significant change when compared to the most recent CT scan of 02/16/2021. Is again noted to extend from the coccyx towards the medial wall of the left hip acetabulum. It also again exhibits a smaller presacral component is also unchanged. No involvement of the sacral canal. 2. Advanced degenerative changes in the left hip. No obvious evidence of osteomyelitis 3. Left-sided colostomy again noted as well as suprapubic catheter in the uri nary bladder. 4. Atrophic [place] kidneys and satisfactory appearing right pelvic transplant kidney again noted. Infiltrate in the left lower lobe posterior basal segment has decreased but not completely resolved. There is no associated pleural effusion Exam(s) PROCEDURE INFORMATION: Exam: CT Abdomen And Pelvis With Contrast Exam date and time: 04/11/2021 4:56 PM Age: 55 years old Clinical indication: Prior surgery; Patient HX: Increased rectal pain, recent abscess TECHNIQUE: Imaging protocol: Computed tomography of the abdomen and pelvis with contrast. COMPARISON: CT ABDOMEN PELVIS W 02/16/2021 9:33 AM FINDINGS: Tubes, catheters and devices: There is a suprapubic Noriega catheter present. Lungs: There is minimal bibasilar atelectasis. Heart: There is calcification of the cardiac mitral valve annulus. Mediastinal space: Material present within the distal esophageal lumen may represent reflux versus ingested material. Consider bezoar. Diaphragm: A moderate hiatal hernia is present. Liver: There are no focal liver lesions present. Gallbladder and bile ducts: There is no evidence of intrahepatic or extrahepatic biliary ductal dilation. The gallbladder is normal. There is no cholelitiasis, wall thickening or pericholecystic fluid to suggest cholecystitis. Pancreas: Moderate pancreatic atrophy with mild pancreatic ductal dilatation present. Spleen: The spleen is normal. Adrenal glands: The adrenal glands are normal. Kidneys and ureters: Severe bilateral renal is cortical atrophy present. 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 Bilateral renal cortical calcifications are present. There is a renal transplant seen within the right pelvis which appears unremarkable. Transplant renal vasculature appears widely patent. Stomach and bowel: There is a colostomy seen within the left lower quadrant of the abdomen. There is a 12 x 5 x 3.6 cm thick-walled fluid collection seen within the left perirectal soft tissues with irregular margins consistent with perirectal abscess. This appears slightly more organized and approximately the same size compared to the prior study. There is moderate increased colonic fecal content. The colon is mildly distended. These findings suggest a moderate degree of constipation. Clinical correlation recommended. Surgical changes seen within the left lower quadrant consistent with prior partial left colectomy. There is fecalization of the small bowel. Consider chronic constipation. Appendix: There is no evidence of appendicitis. Intraperitoneal space: No free air. No significant fluid collection. Vasculature: The peripheral vasculature demonstrates diffuse mild to moderate atherosclerotic calcification. The aorta demonstrates mild atherosclerotic calcification. Lymph nodes: No evidence of lymphadenopathy. Urinary bladder: The bladder is collapsed around a Noriega catheter. Reproductive: The uterus is normal.The ovaries are normal. Bones/joints: There is a convex dextroscoliosis present. The lumbar and thoracolumbar spine appears within normal limits. Soft tissues: The extra-abdominal soft tissues are normal. Other findings: The inferior venacava appears normal. IMPRESSION: 1. There is a 12 x 5 x 3.6 cm thick-walled fluid collection seen within the left perirectal soft tissues with irregular margins consistent with perirectal abscess. This appears slightly more organized and approximately the same size compared to the prior study. Severe end-stage osteoarthritic changes seen within the left hip with moderate to severe osteoarthritic changes seen within the right hip. 2. A moderate hiatal hernia is present. 3. Material present within the distal esophageal lumen may represent reflux versus ingested material. Consider bezoar. 4. Severe bilateral renal cortical atrophy present. 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 Bilateral renal cortical calcifications are present. The adrenal glands are normal. 5. There is a renal transplant seen within the right pelvis which appears unremarkable. Transplant renal vasculature appears widely patent. EXAM: US RENAL CLINICAL HISTORY: complicated UTI; hx of renal transplant TECHNIQUE: Ultrasound of both kidneys performed using standard protocol. COMPARISON: US Cardiac from 10/20/[address] ABDOMEN PELVIS W from 04/11/[address] ABDOMEN PELVIS W from 04/11/2021 FINDINGS: [place] KIDNEYS: Both [place] kidneys were apparently not able to be visualized. There is shown to be atrophic by recent CT scan. There is a transplant kidney in the right iliac fossa. This appears unremarkable. Normal cortical thickness. No calculi. No hydronephrosis. URINARY BLADDER: There is a suprapubic catheter in the urinary bladder. Bladder is relatively empty and difficult to evaluate IMPRESSION: 1. The right iliac fossa transplant kidney exhibits normal size and cortical thickness and without significant focal findings no hydronephrosis. 2. The [place] kidneys were apparently not able to be seen on this ultrasound study. 3. There is a suprapubic catheter in the urinary bladder and the bladder is empty. Labs on day of discharge: Labs from last 24 hours 04/14/21 04/14/21 06:20 06:20 WBC 5.29 RBC 3.70 L Hgb 9.2 L Hct 31.4 L MCV 84.9 MCH 24.9 L MCHC 29.3 L RDW 17.8 H Plt Count 359 MPV 8.6 Immature Gran % 0.6 Neutrophils % 72.1 Lymphocytes % 21.2 Monocytes % 5.3 Eosinophils % 0.4 Basophils % 0.4 Nucleated RBC % 0 Absolute Neutrophils 3.82 Absolute Lymphocytes 1.12 L Absolute Monocytes 0.28 Absolute Eosinophils 0.02 Absolute Basophils 0.02 Sodium 141 Potassium 4.0 Chloride 107 Carbon Dioxide 26.6 Anion Gap 7.4 BUN 23 H Creatinine 0.8 Estimated GFR/1.73 m2 >= 60.00 Glucose 124 H Calcium 8.3 L Total Bilirubin 0.3 AST 10 L ALT 11 L Alkaline Phosphatase 64 Total Protein 7.4 Albumin 3.0 L PFSH All Active Problems Incontinence in female (Acute) Discharge planning issues (Acute) Complicated UTI (urinary tract infection) (Acute) Candice-rectal abscess (Chronic) Ambulatory dysfunction (Chronic) Adrenal insufficiency (Chronic) Hypercoagulable state, primary (Chronic) Hypertension (Chronic) Osteoarthritis of left hip (Chronic) Medical History C5 vertebral fracture Cerebellar lesion Chronic anticoagulation Chronic kidney disease Hyperparathyroidism Lytic bone lesions on xray on CT Neurogenic bladder Osteoporosis Peripheral neuropathy Protein S deficiency Seizure disorder TBI (traumatic brain injury) Surgical History Colonoscopy - [facility] (02/11/15) INO MERINO Fistula creation History of kidney transplant S/P kidney transplant Social History Smoking/Tobacco Use Status: Never Smoking risk assessment performed?: Yes Alcohol Intake: never Drug use: Never Substance use type: does not use Do you feel safe at home: Yes Do you feel safe in your relationship?: Yes Additional Social history: Lives at [facility]
--- NOTE | 2021-04-14 12:32 | PDOC.CMDIS ---
- If Service Date Differs Date of service: 04/14/21 Time of Service: 12:32 LACE Index Scoring Tool - Questions: Length of Stay (in days): 3 Acuity (Admit via E.D.?): Yes Comorbidities: Liver or Renal Disease E.D. Visits: 3 - Answers: Total Score: 14 Risk of Readmission: High Risk Care Management Discharge Reason for Hospitalization: Candice-rectal abscess Discharge Plan: Darlene will return to [facility] where she resides. She will follow up with facility providers and plan of care and transport via ambulance coordinated by CM. Patient/Family Education Needs: Review of discharge instructions, medications, follow up plan, activity, limitations, Ask Me Three Services Needed at Discharge: Prison Facility
== END 2021-04-14 13:11 | disposition skilled nursing facility (03) | DRG 394 ==
LOC: ER 17:34 → MS 22:40
PROVIDERS: Nurse Practitioner Acute Care; Admitting Provider Internal Medicine; Emergency Provider Physician Assistant; PCP Family Medicine; Visit Provider Internal Medicine
DX: K61.1 Rectal abscess (principal); N39.0 Urinary tract infection, site not specified; E27.40 Unspecified adrenocortical insufficiency; Z94.0 Kidney transplant status; I13.0 Hypertensive heart and chronic kidney disease with heart failure and stage 1 through stage 4 chronic kidney disease, or unspecified chronic kidney disease; K59.2 Neurogenic bowel, not elsewhere classified; I50.30 Unspecified diastolic (congestive) heart failure; D84.821 Immunodeficiency due to drugs; D68.59 Other primary thrombophilia; Z93.51 Cutaneous-vesicostomy status; G40.909 Epilepsy, unspecified, not intractable, without status epilepticus; N31.9 Neuromuscular dysfunction of bladder, unspecified; N18.9 Chronic kidney disease, unspecified; Z93.3 Colostomy status; Z87.820 Personal history of traumatic brain injury; Z79.899 Other long term (current) drug therapy; K44.9 Diaphragmatic hernia without obstruction or gangrene; M16.12 Unilateral primary osteoarthritis, left hip; R32 Unspecified urinary incontinence; B96.1 Klebsiella pneumoniae [K. pneumoniae] as the cause of diseases classified elsewhere
CPT/HCPCS: 36415; 51702; 76770; 80053; 83690; 84145; 87077; 87081; 87635; 96365; 99222; 99232; 99285; 74177; 81003; 81015; 83605; 83735; 84443; 85025; 85610; 86140; 87086; 87186; 99223; 99233; 99239; A0425; A0428; J0131; J1644; J1720; J2270; J2543; J3490; J7512; J7517

== ENCOUNTER → 2021-04-13 13:54 | Outpatient (BNVA) | payer MEDICARE, MEDICAID, SELFPAY | PROVIDERS: PCP Family Medicine; Referring Provider Family Medicine; Visit Provider Urology | DX: R69 Illness, unspecified (principal) ==

== ENCOUNTER 2021-05-16 15:11 | Outpatient (REF) | payer MEDICARE, MEDICAID, SELFPAY ==
[2021-05-16 21:32] LABS: Abs Immature Grans 0.03 10^3/uL (0.0-0.06); Absolute Basophil Count 0.04 10^3/uL (0.0-0.2); Absolute Eosinophil Count 0.15 10^3/uL (0.0-0.7); Absolute Lymphocyte Count 1.92 10^3/uL (1.2-3.4); Absolute Monocyte Count 0.48 10^3/uL (0.1-0.8); Basophils % 0.5; Eosinophils % 1.8; HGB 10.3 g/dL (11.2-15.7); Immature Grans % 0.4; Lymphocytes % 23.1; MCH 25.3 pg (27.0-33.0); MCHC 30.3 % (32.0-36.0); MCV 83.5 fL (80-95); MPV 9.3 fL (8.0-11.0); Monocytes % 5.8; Neutrophils % 68.4; Nucleated RBC 0 %; Platelet Count 375 10^3/uL (130-400); RBC 4.07 10^6/uL (3.93-5.22); RDW-SD 48.7 fL; WBC 8.32 10^3/uL (4.4-10.8)
[2021-05-16 21:43] LABS: Anion Gap 14.2 mmol/L (3-11); BUN 15 mg/dL (7-18); CO2 21.8 mmol/L (21.0-32.0); CREATININE 1.1 mg/dL (0.55-1.02); Calcium 8.4 mg/dL (8.5-10.1); Chloride 98 mmol/L (98-107); Glucose 204 mg/dL (74-106); Potassium 4.1 mmol/L (3.5-5.1); Sodium 134 mmol/L (136-145)
[2021-05-17 02:24] LABS: COVID-19 RT-PCR UVMMC Result Negative (Negative)
[2021-05-18 15:10] LABS: Tacrolimus <2.0 ng/mL (See Note)
[2021-05-19 10:52] LABS: Levetiracetam 74.2 mcg/mL
== END 2021-05-16 15:12 | disposition home or self-care (01) ==
LOC: LBN 15:11
PROVIDERS: PCP Family Medicine; Visit Provider Family Medicine
DX: K61.2 Anorectal abscess (principal); Z20.822 Contact with and (suspected) exposure to COVID-19
CPT/HCPCS: 80048; U0003; U0005; 80177; 80197; 85025

== ENCOUNTER 2021-05-24 10:10 | Outpatient (REF) | payer MEDICARE, MEDICAID, SELFPAY ==
[2021-05-24 10:54] LABS: HCT 33.3 % (36.0-46.0); HGB 10.2 g/dL (11.2-15.7); MCH 24.8 pg (27.0-33.0); MCHC 30.6 % (32.0-36.0); MPV 10.1 fL (8.0-11.0); Platelet Count 426 10^3/uL (130-400); RBC 4.11 10^6/uL (3.93-5.22); RDW 15.9 % (11.7-14.6); WBC 10.07 10^3/uL (4.4-10.8)
[2021-05-24 10:58] LABS: Anion Gap 12.6 mmol/L (3-11); BUN 19 mg/dL (7-18); CO2 25.4 mmol/L (21.0-32.0); CREATININE 0.7 mg/dL (0.55-1.02); Calcium 8.5 mg/dL (8.5-10.1); Chloride 101 mmol/L (98-107); Glucose 104 mg/dL (74-106); Potassium 4.4 mmol/L (3.5-5.1); Sodium 139 mmol/L (136-145)
[2021-05-25 12:56] LABS: Levetiracetam 67.8 mcg/mL
[2021-05-25 14:07] LABS: Tacrolimus <2.0 ng/mL (See Note)
== END 2021-05-24 10:11 | disposition home or self-care (01) ==
LOC: LBN 10:10
PROVIDERS: PCP Family Medicine; Visit Provider Nurse Practitioner Family
DX: Z51.81 Encounter for therapeutic drug level monitoring (principal); E87.8 Other disorders of electrolyte and fluid balance, not elsewhere classified
CPT/HCPCS: 80048; 85027; 80177; 80197

== ENCOUNTER 2021-05-24 14:21 | Inpatient (IN) | payer MEDICARE, MEDICAID, SELFPAY ==
[2021-05-24] VITALS (88 sets, daily range): BP systolic 100–171; BP diastolic 56–87; PULSE 93–134; RESP 16–41; TEMP 37.4–38.8; O2SAT 93–100
--- NOTE | 2021-05-24 14:37 | ED.GENADUL_ITS ---
Discharge Plan Disposition Patient Disposition: [facility] INPATIENT Condition: Stable Discharge Details Clinical Impression: Cellulitis of arm, left, LLL pneumonia Admit Date/Time: 05/24/21 19:15 Admit Provider: Leonard German Attending Provider: Leonard German Primary Care Provider: Randall Ling ED Provider: Deondre Wilkerson Discharge Data Discharge Date/Time-TO BE ENTERED AT DEPARTURE: 05/24/21 20:20 Medical Decision Making <Neda James - Last Filed: 05/30/21 08:06> 55-year-old female presents to the ER via EMS chief complaint of arm swelling and erythema and warmth which she noticed today. She recently had a left-sided fistula ligation 1 week ago (on 05-17-20). She is a patient at [facility] for recent perirectal abscess where a drain was placed at [facility]. Patient is a kidney transplant patient. She also has a colostomy and suprapubic catheter. She reports that the anal drain and the suprapubic catheter have also been draining there is erythema noted surrounding her lower abdomen. Other past medical history includes traumatic brain injury, seizure disorder, protein S deficiency, neurogenic bladder, chronic kidney disease, hyperparathyroidism adrenal insufficiency, hypertension, osteoarthritis of left hip, ambulatory dysfunction. She does have contractures noted to her lower extremities. She is a DNR/DNI. Septic work-up ordered including a lactate blood cultures x2 CT chest abdomen pelvis and extremity ordered with contrast. Did verify with radiologist regarding this exam. Care is to be handed off to oncoming provider NIRAV Rizvi pending labs and CT results. <NIRAV Saldivar - Last Filed: 05/24/21 19:56> This is a quite medically complicated 55-year-old female patient that I assumed care of from my colleague CASSIDY James. Please see her initial HPI and examination. It was brought to my attention that the patient has a allergy to iodine, but this appears to be from Betadine and is only a skin rash. She had a CT with contrast last month and had no ill reaction. She is already receiving 1 L IV fluid, plan is to give her 25 IV Benadryl and with proceed with the CT that had previously been ordered. Patient tolerated the CT without any difficulty. Upon her return I was able to evaluate her. Lungs are diminished bilateral lower bases. Her suprapubic catheter appears to be functioning, yellow urine draining. Across her lower abdomen there is an area of erythema, warmth, tenderness, difficult to tell whether this is simply excoriation secondary to urine exposure versus cellulitis. Her left arm reveals a tender, warm, erythematous, firm surgical site that is well approximated, erythema does trend slightly approximately. There is no drainage or obvious signs of pointing abscess. She was rolled to her right, I was able to visualize her draining perirectal abscess, no erythema or purulent drainage, what appears to be a small amount of serosanguineous fluid. Her heart rate is primarily in the 120s. She is actually slightly hypertensive, 160s/70s. O2 sat 95% on room air. She remains afebrile. Patient is reporting significant increased pain after movement, given 1 mg IV Dilaudid. Laboratory values reveal mild nonspecific leukocytosis of 11.23, hemoglobin 10.6 hematocrit 35.1 platelet count 492. Lactate of 1.6. Electrolytes unremarkable, creatinine 0.8 with a GFR greater than 60. Magnesium 2.2 troponin less than 50, CRP 20.92, urinalysis with large blood, positive nitrates, large leuk esterase, 20-50 red cells and greater than 50 white cells. Patient was given a second liter of IV fluids for her persistent tachycardia. Given the leukocytosis, tachycardia, lactate, concern for infection of her left arm and urine, worry for early sepsis. Blood cultures are pending. Covid negative Awaiting CT imaging. Difficulty called with an acute UTI given her suprapubic catheter and her colonization. Given her catheter had been changed today because it was malfunctioning certainly raises the suspicion that this could be an acute UTI. CT imaging was read both by Margret and our in-house radiology team. There appears to be a thrombosed fistula, secondary to hematoma, some localized stranding concerning for cellulitis. CT imaging of chest, abdomen, pelvis reveals left lower lobe pneumonia with bilateral groundglass opacities. Stent within the left subclavian artery with likely thrombosis, recommend nonemergent short-term ultrasound evaluation. Interval decrease in size of fluid component within the known left perirectal abscess. Given her complicated past medical history, recent procedure, persistent tachycardia, I do believe aggressive treatment with wide spectrum antibiotics is reasonable. We will give loading dose of vancomycin. Case has been discussed with our hospitalist team, Dr. German who is agreeable to admission and will personally see the patient in the ER. This documentation was generated using [employer] dictation system, please disregard any oddities of phrase or misspellings. Medical Records Medical records reviewed: Yes I reviewed the patient's medical records. Imaging Data Radiologic Study: Attestation: I personally reviewed and interpreted this imaging study as follows: Imaging: CT Scan Radiologist's impression: PROCEDURE INFORMATION: Exam: CT Chest With Contrast; Diagnostic Exam date and time: 05/24/2021 4:34 PM Age: 55 years old Clinical indication: Abdominal pain; Radiating TECHNIQUE: Imaging protocol: Diagnostic computed tomography of the chest with contrast. 3D rendering (Not supervised by radiologist): MIP and/or 3D reconstructed images were created by the technologist. COMPARISON: CT ABDOMEN PELVIS W 04/11/2021 7:00 PM FINDINGS: Lungs: Scarring is apparent within both lung apices. Within the right upper lobe is a 5 mm nodule, series 11, image 39, a 7 mm nodule, series 11, image 67 with adjacent nodular densities which may represent consolidated ground-glass opacities and a 5 mm nodule, series 11, image 73. Bilateral predominantly lower lobe ground-glass opacities noted, series 11, image 275. There is a region of left lower lobe consolidation/atelectatic lung with air bronchograms and scarring. Airways are patent. Pleural spaces: No pleural effusion or pneumothorax. Mediastinum: Thyroid appears unremarkable with artifact. Heart size is enlarged. No pericardial effusion or thickening. No thoracic aortic aneurysm or dissection. There is calcification of the mitral valve and minor atherosclerotic calcification within the coronary arteries. There is a small to moderate size hiatal hernia. Lymph nodes: No mediastinal lymphadenopathy. Superior abdomen: See findings on aluminum boat assembly supervisor same-day CT abdomen and pelvis study. Bones/joints: No acute osseous injury or underlying osseous mass. Significant facet arthropathy is seen within the visualized inferior cervical spine, series 6, image 20. Soft tissues: There is a stent within the left subclavian artery with likely thrombosis, series 6, image 158. TACOS DE JESUS Preliminary Radiology Report Page 2 of 3 IMPRESSION: 1. Five, 7 and 5 mm right upper lobe nodules versus focal region of tiny ground- glass consolidation. For patients at low risk (minimal or absent history of smoking and of other known risk factors), recommend CT Chest at 3-6 months, then consider CT Chest at 18-24 months. For patients at high risk (history of smoking or of other known risk factors), recommend CT Chest at 3-6 months, then CT Chest at 18-24 months. (Reference: Josseline) References: Josseline Coburn, et al. Guidelines for Management of Incidental Pulmonary Nodules Detected on CT Images: From the Fleischner Society 2017. Radiology. 2017;284(1):228-243 2. Bilateral ground-glass opacities which is a nonspecific finding. However, recommend evaluation for possible COVID. 3. Left lower lobe consolidation/atelectatic lung with air bronchograms. 4. Cardiomegaly. 5. Small moderate size hiatal hernia. 6. Stent within the left subclavian artery with likely thrombosis. Recommend nonemergent short-term ultrasound evaluation. PROCEDURE INFORMATION: Exam: CT Abdomen And Pelvis With Contrast Exam date and time: 05/24/2021 4:34 PM Age: 55 years old Clinical indication: Abdominal pain; Radiating TECHNIQUE: Imaging protocol: Computed tomography of the abdomen and pelvis with contrast. 3D rendering (Not supervised by radiologist): MIP and/or 3D reconstructed images were created by the technologist. COMPARISON: CT ABDOMEN PELVIS W 04/11/2021 7:00 PM FINDINGS: Lung base: See findings on same day aluminum boat assembly supervisor CT chest study. Distal mediastinum: See findings on same day aluminum boat assembly supervisor CT chest study. Liver: Unremarkable. No hepatic mass or cyst. Gallbladder and bile ducts: No gallstones. No intra or extrahepatic ductal dilatation. Pancreas: Unremarkable. There is minor duct dilatation. Spleen: No splenomegaly. Adrenal glands: Unremarkable. TACOS DE JESUS Preliminary Radiology Report CLINICAL COURIER (QA) DISCREPANCY? If there is a discrepancy between the preliminary and final interpretation, please notify [facility] via [email or web address]. If you do not have access to our QA portal, call our QA team at [phone] CONFIDENTIALITY STATEMENT This report is intended only for the use of the referring physician, and only in accordance with law, If you received this in error, call [phone] Page 3 of 3 Kidneys and ureters: There is severe cortical atrophy of the kidneys with cortical calcifications present. No nephrolith, hydronephrosis or renal mass/cyst seen. More inferiorly within the right hemipelvis is a normal appearing kidney. Stomach and bowel: The stomach is largely collapsed. There is a left lower abdominal colostomy. Significant fecal load is seen throughout the colon. There is fecalization of the small bowel. No mucosal/bowel wall thickening. Postsurgical changes are seen within the left hemipelvis with multiple surgical clips, finding consistent with partial left colectomy. Appendix: No right lower quadrant inflammatory change. The appendix is not definitively seen. Intraperitoneal space: No free air or significant free fluid. Within the left perirectal area is a thinner walled, as compared to prior study, fluid collection with fluid collection now measuring 22 x 11 mm, series 5, image 104, previously measuring 48 x 15 mm, series 4 image 71 on 04/11/2021 study. There is a focus of air within the more anterior portion of this collection. Vasculature: No aneurysm. IVC is unremarkable. Lymph nodes: No lymphadenopathy. Urinary bladder: Noriega catheter in place. Reproductive: Uterus is essentially midline. Likely ovaries are unremarkable. Bones/joints: No acute osseous injury or underlying osseous mass. There is severe degenerative change to the left hip joint. Soft tissues: There is rightward curvature of the thoracolumbar spine. IMPRESSION: 1. No acute intraabdominal or intrapelvic finding. 2. Interval decrease in size of fluid component within the known left perirectal abscess. 3. Severe bilateral cortical atrophy of the kidneys with transplant kidney appearing unremarkable. 4. Significant fecal load within the colon and fecalization of the small bowel. 5. Severe degenerative change to the left hip joint. Radiologic Study #2: Attestation: I personally reviewed and interpreted this imaging study as follows: Imaging: CT Scan Radiologist's impression: PROCEDURE INFORMATION: Exam: CT Left Upper Extremity With Contrast Exam date and time: 05/24/2021 4:34 PM Age: 55 years old Clinical indication: Pain; Upper arm; Left TECHNIQUE: Imaging protocol: CT of the Left upper extremity with intravenous contrast was performed. COMPARISON: No relevant prior studies available. FINDINGS: Bones/joints: Humerus, elbow joint, radius, and ulna are unremarkable as visualized. Soft tissues: There appears to be a prominent hematoma in the antecubital fossa region anteriorly. This measures approximately 4.5 x 3.5 by 4.9 cm. This could be a postoperative hematoma or could be related to access of the fistula for dialysis. Recommend clinical correlation Vasculature: Subclavian, axillary, and brachial artery are patent. Patient appears to have a dialysis fistula in the left upper extremity. This appears to be a ute Jana type fistula with a radial cephalic anastomosis at the wrist. There also appears to be an anastomosis in the kit antecubital fossa suggesting a brachial cephalic anastomosis for upper arm fistula. The distal fistula may not have matured appropriately. Recommend clinical correlation. The forearm aspect of the fistula appears to be thrombosed with lack of internal contrast. The superior aspect of the brachial- cephalic vein fistula has filling defect consistent with intraluminal thrombus. See series 12, image 85. This is incompletely thrombosed at this time. There is a stent at the superior aspect of the cephalic vein outflow which appears to be thrombosed with internal low-attenuation clot like material. Lymph nodes: No axillary adenopathy. Lungs: Posterior left lower lobe segmental airspace consolidation concerning for infiltrate. IMPRESSION: 1. [place] dialysis fistula left upper extremity which appears to be a Jana type fistula from the distal radiocephalic anastomosis. This portion of the fistula appears to be thrombosed. TACOS DE JESUS Preliminary Radiology Report CLINICAL COURIER (QA) DISCREPANCY? If there is a discrepancy between the preliminary and final interpretation, please notify [facility] via [email or web address]. If you do not have access to our QA portal, call our QA team at [phone] CONFIDENTIALITY STATEMENT This report is intended only for the use of the referring physician, and only in accordance with law, If you received this in error, call [phone] Page 2 of 2 2. Appearance suggesting a secondary fistula which is brachial artery to cephalic vein at the antecubital fossa. 3. Large soft tissue hematoma suggested in the antecubital fossa measuring approximately 4.9 x 4.5 x 3.5 cm. This could be from surgical creation of the fistula or might be related to venous access for dialysis. 4. Upper aspect of the superior cephalic vein fistula has filling defect suggesting thrombus. 5. Endovascular stent at the most superior aspect of the cephalic vein outflow. The endovascular stent has internal material suggesting thrombus with occlusion. 6. No osseous abnormalities evident. 7. No adenopathy of the axilla. 8. Suggestion of a posterior left lower lobe subsegmental infiltrate. See series 4, image 1. HPI <Neda James - Last Filed: 05/30/21 08:06> General Mode of arrival: EMS . Date/Time Provider Initiated Documentation: 05/24/21 14:21 . Limitations to Documentation: no limitations . Information obtained by: patient, RN notes reviewed and old records reviewed . HPI Narrative: 55-year-old female presents to the ER via EMS chief complaint of arm swelling and erythema and warmth which she noticed today. She recently had a left-sided fistula ligation 1 week ago (on 05-17-20). She is a patient at [facility] for recent perirectal abscess where a drain was placed at [facility]. Patient is a kidney transplant patient. She also has a colostomy and suprapubic catheter. She reports that the anal drain and the suprapubic catheter have also been draining there is erythema noted surrounding her lower abdomen. Other past medical history includes traumatic brain injury, seizure disorder, protein S deficiency, neurogenic bladder, chronic kidney disease, hyperparathyroidism adrenal insufficiency, hypertension, osteoarthritis of left hip, ambulatory dysfunction. She does have contractures noted to her lower extremities. She is a DNR/DNI. Related Data Home Medications Medication Instructions Recorded Confirmed levetiracetam [Keppra] 1,500 mg PO BID 08/15/13 05/24/21 mycophenolate mofetil 250 mg PO BID 10/19/18 05/24/21 prednisone 5 mg PO Q OTHER DAY 10/19/18 05/24/21 magnesium oxide 400 mg PO TID 10/29/18 05/24/21 furosemide 20 mg PO BID #0 tab 11/04/18 05/24/21 bisacodyl 10 mg [place] BID PRN PRN #0 ea 02/11/19 04/11/21 magnesium hydroxide [Milk of 30 ml PO BID PRN PRN #0 ml 02/11/19 04/11/21 Magnesia] guaifenesin 100 mg/5 mL oral liquid 400 mg PO Q4H PRN 03/15/20 05/24/21 Biofreeze (menthol) 1 applic TOPICAL TID 09/14/20 04/11/21 Liquid Protein Fortifier 30 ml PO DAILY 09/14/20 04/11/21 Myrbetriq 50 mg PO DAILY 09/14/20 05/24/21 d-mannose 2,000 mg PO DAILY 09/14/20 05/24/21 morphine 30 mg PO QHS 09/14/20 05/24/21 sertraline 50 mg tablet 150 mg PO DAILY tab 11/08/20 05/24/21 nystatin 100,000 applic TOPICAL TID 11/17/20 05/24/21 polyethylene glycol 3350 17 g PO DAILY PRN 11/17/20 05/24/21 tacrolimus 2 mg PO QAM 11/17/20 05/24/21 Fleet Enema 118 ml AZ DAILY PRN 04/11/21 04/11/21 acetaminophen 650 mg PO Q6H PRN 04/11/21 05/24/21 morphine 15 mg PO QAM 04/11/21 05/24/21 sennosides [Senokot] 2 tab PO BID 04/11/21 05/24/21 simethicone 125 mg PO TID PRN 04/11/21 05/24/21 tacrolimus 1 mg PO QHS 04/11/21 05/24/21 venlafaxine 75 mg PO DAILY 04/11/21 05/24/21 L. acidophilus,casei,rhamnosus 1 cap PO DAILY #30 cap 04/14/21 05/24/21 [Bio-K plus] ciprofloxacin HCl 500 mg PO BID #28 tab 04/14/21 oxycodone-acetaminophen [Percocet] 1 tab PO Q6H PRN #20 tab 04/14/21 05/24/21 acetic acid 50 ml IRRIGATION HS 05/24/21 05/24/21 silver sulfadiazine 1 applic TOPICAL BID 05/24/21 05/24/21 Previous Rx's Medication Instructions Recorded furosemide 20 mg PO BID #0 tab 11/04/18 bisacodyl 10 mg [place] BID PRN PRN #0 ea 02/11/19 magnesium hydroxide [Milk of 30 ml PO BID PRN PRN #0 ml 02/11/19 Magnesia] L. acidophilus,casei,rhamnosus 1 cap PO DAILY #30 cap 04/14/21 [Bio-K plus] ciprofloxacin HCl 500 mg PO BID #28 tab 04/14/21 oxycodone-acetaminophen [Percocet] 1 tab PO Q6H PRN #20 tab 04/14/21 Allergies Allergy/AdvReac Type Severity Reaction Status Date / Time codeine Allergy Severe Unverified 05/24/21 18:35 divalproex sodium Allergy Unverified 05/24/21 18:33 [From Depakote] povidone-iodine AdvReac Unknown Skin Rash Unverified 05/24/21 18:34 [From Betadine] soap [From Betadine] AdvReac Skin Rash Unverified 05/24/21 18:33 General Stated Complaint: Cellulitis AD: 2 Review of Systems <Neda James - Last Filed: 05/30/21 08:06> All systems reviewed & are unremarkable except as noted in HPI and below Integumentary/Breasts Skin/Breast: Reports erythema PFSH <Neda James - Last Filed: 05/30/21 08:06> All Active Problems (Updated 05/30/21 @ 00:03 by SAILAJA ABDUL) Palliative care patient (Acute) Deep vein thrombophlebitis of arm (Acute) Suprapubic catheter dysfunction (Acute) Ground glass opacity present on imaging of lung (Acute) LLL pneumonia (Acute) Incontinence in female (Acute) Candice-rectal abscess (Chronic) Ambulatory dysfunction (Chronic) Adrenal insufficiency (Chronic) Hypercoagulable state, primary (Chronic) Hypertension (Chronic) Osteoarthritis of left hip (Chronic) Medical History C5 vertebral fracture Cerebellar lesion Chronic anticoagulation Chronic kidney disease Hyperparathyroidism Lytic bone lesions on xray on CT Neurogenic bladder Osteoporosis Peripheral neuropathy Protein S deficiency Seizure disorder TBI (traumatic brain injury) Surgical History Colonoscopy - [facility] (02/11/15) INO MERINO Fistula creation History of kidney transplant S/P kidney transplant Social History Smoking/Tobacco Use Status: Never Smoking risk assessment performed?: Yes Alcohol Intake: never Drug use: Never Substance use type: does not use Do you feel safe at home: Yes Do you feel safe in your relationship?: Yes Additional Social history: Lives at [facility] and R Exam <Neda James - Last Filed: 05/30/21 08:06> Narrative Exam Narrative: Constitutional: Alert and oriented x3. Appears older than stated age and chronically ill. Head: Normocephalic, no trauma. Eyes: Pupils PERRL, Red reflex noted, EOM's intact. Eyelids symmetrical without lesions, discharge, or swelling. ENT: Bilateral TM's WNL, External ear normal to inspection, no mastoid TTP, swelling, or erythema, Nasal turbinates WNL, no nasal discharge. Normal dentition, Posterior pharynx WNL, no exudate. Chest: RRR, Normal S1, S2, distal pulses intact. Resp: Lungs clear to auscultation bilaterally, no wheezes, rales, or rhonchi. Abdomen: area of erythema and warmth possible excoriation versus cellulitis. supra pubic catheter noted, colostomy LUQ. Musculoskeletal: Contractures noted to lower extremities, patient is non ambulatory. Skin: Erythema noted to LEft upper extremity, surgical incision noted from previous fistula. Capillary refill less than 2 sec. Neurologic: Cranial nerves II-XII intact. Alert and oriented x 3. Motor: No deficits noted. Sensory: Intact bilaterally all 4 extremities. Hematologic/Lymphatic: No ecchymosis, no lymphadenopathy. Course <Neda James - Last Filed: 05/30/21 08:06> Vital Signs Vital signs: Vital Signs Temperature 37.4 C 05/24/21 14:24 Pulse 105 H 05/24/21 14:24 Respiratory Rate 24 05/24/21 14:24 Blood Pressure 100/62 05/24/21 14:24 Pulse Oximetry 98 05/24/21 14:24 Temperature 37.4 C 05/24/21 14:24 Pulse 105 H 05/24/21 14:24 Respiratory Rate 24 05/24/21 14:24 Respiratory Effort 05/24/21 14:30 Blood Pressure 100/62 05/24/21 14:24 Blood Pressure Position Supine 05/24/21 14:24 Pulse Oximetry 98 05/24/21 14:24 Oxygen Delivery Method Room Air 05/24/21 14:24 Oxygen Flow Rate 0 05/24/21 14:24 Pain Level 9 05/24/21 14:24 <NIRAV Saldivar Last Filed: 05/24/21 19:56> Critical Care Time Critical Care Time: Yes Total Critical Care Time: 35 Attestation: Upon my evaluation, this patient had a high probability of clinically significant, life-threatening deterioration due to their current medical conditions, which required my direct attention, intervention, and personal management. I have personally provided greater than 30 minutes of critical care time exclusive of the time spend on separately billable procedures. Time includes obtaining a history, examining the patient, pulse oximetry, review of laboratory data, radiology results, discussion with consultants, arranging urgent treatment with development of a management plan, evaluation of patient's response to treatment, and monitoring for potential decompensation. Interventions were performed as documented above. Sign Out <Neda James - Last Filed: 05/30/21 08:06> Sign Out Data: Sign Out Comment: Pending CT, and labs, Septic workup. Hx of left AV fistula removal on 05-17-20, woke up today with increased redness, swelling and pain. Also reporting draining suprapubic catheter and drainage from a anal tube, status post perirectal abscess. Both were done at [facility] Last updated by Neda James at 05/24/21 15:50
[2021-05-24 15:03] LABS: Abs Immature Grans 0.06 10^3/uL (0.0-0.06); Absolute Basophil Count 0.02 10^3/uL (0.0-0.2); Absolute Lymphocyte Count 1.54 10^3/uL (1.2-3.4); Absolute Monocyte Count 0.56 10^3/uL (0.1-0.8); Absolute Neutrophil Count 8.95 10^3/uL (1.2-6.7); Basophils % 0.2; Eosinophils % 0.9; HCT 35.1 % (36.0-46.0); HGB 10.6 g/dL (11.2-15.7); Immature Grans % 0.5; Lymphocytes % 13.7; MCH 25.1 pg (27.0-33.0); MCHC 30.2 % (32.0-36.0); MPV 9.2 fL (8.0-11.0); Neutrophils % 79.7; Nucleated RBC 0 %; Platelet Count 492 10^3/uL (130-400); RBC 4.23 10^6/uL (3.93-5.22); RDW 15.7 % (11.7-14.6); RDW-SD 47.3 fL; WBC 11.23 10^3/uL (4.4-10.8)
--- NOTE | 2021-05-24 15:09 | DI.CT_ITS ---
Exam(s) CT UPPER EXTREMITY LT W EXAM: CT UPPER EXTREMITY LT W CLINICAL HISTORY: Recent fistula removal, swelling, redness TECHNIQUE: Imaging Protocol: Axial computed tomography images with coronal and sagittal reformatted images were created and reviewed. CONTRAST MATERIAL: Intravenous: Omnipaque 350 Contrast volume:structured data in ml Contrast route:I V - Oral: yes / no COMPARISON: CT CT CHEST/ABD/PEL W from 05/24/2021 FINDINGS: There is a large serpiginous thrombus filled vessel in the superficial aspect of the upper aspect the left upper extremity which extends for a length of approximately 20 cm and with the most prominent p ortion being the most distal which is subjacent to the skin marker and measures approximately 5 x 4 c m. This appears to be just distal to the arterial venous shunt anastomosis. There is overlying vanesa a in the subcutaneous fat and slight skin thickening over the upper extremity. There does not appear to be a separate fluid collection having the appearance of an abscess separate from the above descri bed thrombosed venous shunt. There are other nonthrombosed venous channels evident carrying blood proximally from the distal for e xtremity towards the heart. These do not appear thrombosed. These are located medially. At the level of the shoulder there is a stent in what appears to be cephalic vein, appearing to be pr obably thrombosed. IMPRESSION: As above. Findings are consistent with a significantly enlarged thrombosed AV fistula shunt. RADIATION DOSE DELIVERED: Total DLP DATA REPOSITORY: All CT scans at this facility are submitted to the National Radiology Data Registry (NRDR) Dose Index Registry (DIR) with the [employer] (ACR). RADIATION OPTIMIZATION: All CT scans at this facility use at least one of these dose optimization te chniques: automated exposure control; mA and/or kV adjustment per patient size (includes targeted exa ms where dose is matched to clinical indication); or iterative reconstruction.
[2021-05-24 15:13] LABS: Source Nasopharynx
[2021-05-24 15:28] LABS: Bilirubin Negative (Negative); Blood Large (Negative); Clarity Sl Cloudy (Clear); Glucose Negative (Negative); Ketones Negative (Negative); Leukocyte Esterase Large (Negative); Nitrite Positive (Negative); Specific Gravity 1.025 (1.005-1.025); Urobilinogen 0.2 EU/dL (Up TO 0.2); pH 7.5 (5-8)
[2021-05-24 15:36] LABS: Bacteria Many HPF (Negative); Epithelial Cells Few HPF (Negative); Other Cells Negative (Negative); RBC 20-50 HPF (0-2); WBC >50 HPF (0-5)
[2021-05-24 15:37] LABS: C & S Indicated? Yes; Casts Negative LPF (Negative); Crystals Mod Calcium Oxalate HPF (Negative); Mucus Negative (Negative)
[2021-05-24 15:47] LABS: Lactate 1.6 mmol/L (0.6-1.4)
[2021-05-24] MEDS: Normal Saline 1,000 ML 1000 ML IV ×2 (15:59→17:52)
[2021-05-24 16:02] LABS: COVID-19 PCR Negative (Negative); Influenza A PCR Negative (Negative); Influenza B PCR Negative (Negative); RSV PCR Negative (Negative)
[2021-05-24 16:13] LABS: ALT 24 U/L (14-59); AST 22 U/L (15-37); Albumin 2.9 g/dL (3.4-5.0); Alkaline Phosphatase 125 U/L (46-116); Anion Gap 11.4 mmol/L (3-11); BUN 18 mg/dL (7-18); Bilirubin, Total 0.3 mg/dL (0.2-1.0); C-Reactive Protein 20.92 mg/dL (0.0-0.3); CO2 25.6 mmol/L (21.0-32.0); CREATININE 0.8 mg/dL (0.55-1.02); Calcium 8.7 mg/dL (8.5-10.1); Chloride 101 mmol/L (98-107); Glucose 143 mg/dL (74-106); Magnesium 2.2 mg/dL (1.8-2.4); Potassium 3.9 mmol/L (3.5-5.1); Sodium 138 mmol/L (136-145); Total Protein 8.2 g/dL (6.4-8.2); Troponin I < 50 ng/L (<or=60)
[2021-05-24] MEDS: diphenhydrAMINE 50 MG/ML VIAL 25 MG IVP (16:18)
--- NOTE | 2021-05-24 16:23 | DI.CT_ITS ---
Exam(s) CT CHEST/ABD/PEL W EXAM: CT CHEST/ABD/PEL W CLINICAL HISTORY: History calvin-rectal abscess, leaking drain. TECHNIQUE: Imaging Protocol: Axial computed tomography images with coronal and sagittal reformatted images were created and reviewed CONTRAST MATERIAL: Intravenous: Omnipaque 350 Contrast volume:100 ml Oral: None COMPARISON: CT CT ABDOMEN PELVIS W from 04/11/2021 FINDINGS: CHEST: LUNGS: There is a increasing infiltrate in the posterior basal segment of the left lower lobe with in creasing air bronchograms. No associated pleural effusion. There also appears to be some ground-gla ss infiltrate in both lungs mid level. There is a 6 millimeter nodule in the right upper lobe. No significant findings in the trachea and m ainstem bronchi. MEDIASTINUM: There is no hilar nor mediastinal adenopathy. Visualized thyroid unremarkable.Esophagus is dilated. Hiatal hernia. CARDIAC: Sternotomy wires. Mild cardiomegaly. No pericardial effusion. Caliber thoracic aorta is w ithin normal limits. No dissection.Caliber of the thoracic aorta is within normal limits. OSSEOUS: No significant osseous lesions.. ABDOMEN: There is no ascites. LIVER: There are no focal hepatic lesions nor dilatation of intrahepatic ducts. GALLBLADDER/BILIARY: Gallbladder is blurred from motion artifact and difficult to assess accurately. There are no obvious calcified gallstones. PANCREAS: No evidence of pancreatic mass nor dilatation of the pancreatic duct. SPLEEN: Spleen is not enlarged. There are no intrasplenic lesions. Splenic and portal veins are mejia nt. ADRENALS: There are no significant adrenal masses. KIDNEYS: Prominent atrophy of both [place] kidneys again noted.. No cysts evident. ABDOMINAL AORTA: Abdominal aorta is not enlarged. LYMPH NODES: There is no retroperitoneal nor paraaortic adenopathy. ABDOMINAL WALL: No evidence of significant anterior abdominal wall nor inguinal hernia. GI: There is no evidence of bowel obstruction.There are no obvious ischemic appearing bowel loops. 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 No hydronephrosis. PELVIS: The size of the left perirectal-ischial fossa abscess has further decreased. Not completely resolved but further significant decrease. LYMPH NODES: There is no intrapelvic nor inguinal adenopathy. GI: No evidence of appendicitis.No evidence of sigmoid diverticulitis. URINARY BLADDER: Suprapubic catheter is noted in the collapsed urinary bladder. REPRODUCTIVE: Uterus and adnexal regions unremarkable. No free fluid. OSSEOUS: Advanced degenerative changes in the left hip but no obvious evidence of osteomyelitis. No pubic rami fractures. No large decubitus ulcer evident IMPRESSION: 1. The size of the left para rectal abscess has further decreased. Degenerative changes are again no padmini in the adjacent left hip but no evidence of osteomyelitis. 2. Severe bilateral atrophy of the [place] kidneys with right pelvic transplant kidney appearing unrem arkable. 3. Suprapubic catheter again noted in the urinary bladder. 4. Increasing infiltrate in the left lower lobe. This is different from the also new bilateral groun d-glass infiltrates. Recommend testing for Covid-19. No pleural effusions. No intrathoracic adenop athy. Findings discussed with ER physician following completion of the study 05/24/2021 RADIATION DOSE DELIVERED: Total DLP DATA REPOSITORY: All CT scans at this facility are submitted to the National Radiology Data Registry (NRDR) Dose Index Registry (DIR) with the [employer] (ACR). RADIATION OPTIMIZATION: All CT scans at this facility use at least one of these dose optimization te chniques: automated exposure control; mA and/or kV adjustment per patient size (includes targeted exa ms where dose is matched to clinical indication); or iterative reconstruction.
[2021-05-24] MEDS: Omnipaque 350 MG/ML 100 ML BTL IJ (16:57)
[2021-05-24] MEDS: HYDROmorphone 2 MG/ML VIAL 1 MG IVP (17:18)
--- NOTE | 2021-05-24 17:56 | DI.VRAD_ITS ---
PROCEDURE INFORMATION: Exam: CT Chest With Contrast; Diagnostic Exam date and time: 05/24/2021 4:34 PM Age: 55 years old Clinical indication: Abdominal pain; Radiating TECHNIQUE: Imaging protocol: Diagnostic computed tomography of the chest with contrast. 3D rendering (Not supervised by radiologist): MIP and/or 3D reconstructed images were created by the technologist. COMPARISON: CT ABDOMEN PELVIS W 04/11/2021 7:00 PM FINDINGS: Lungs: Scarring is apparent within both lung apices. Within the right upper lobe is a 5 mm nodule, series 11, image 39, a 7 mm nodule, series 11, image 67 with adjacent nodular densities which may represent consolidated ground-glass opacities and a 5 mm nodule, series 11, image 73. Bilateral predominantly lower lobe ground-glass opacities noted, series 11, image 275. There is a region of left lower lobe consolidation/atelectatic lung with air bronchograms and scarring. Airways are patent. Pleural spaces: No pleural effusion or pneumothorax. Mediastinum: Thyroid appears unremarkable with artifact. Heart size is enlarged. No pericardial effusion or thickening. No thoracic aortic aneurysm or dissection. There is calcification of the mitral valve and minor atherosclerotic calcification within the coronary arteries. There is a small to moderate size hiatal hernia. Lymph nodes: No mediastinal lymphadenopathy. Superior abdomen: See findings on power plant electrician same-day CT abdomen and pelvis study. Bones/joints: No acute osseous injury or underlying osseous mass. Significant facet arthropathy is seen within the visualized inferior cervical spine, series 6, image 20. Soft tissues: There is a stent within the left subclavian artery with likely thrombosis, series 6, image 158. IMPRESSION: 1. Five, 7 and 5 mm right upper lobe nodules versus focal region of tiny ground-glass consolidation. For patients at low risk (minimal or absent history of smoking and of other known risk factors), recommend CT Chest at 3-6 months, then consider CT Chest at 18-24 months. For patients at high risk (history of smoking or of other known risk factors), recommend CT Chest at 3-6 months, then CT Chest at 18-24 months. (Reference: Josseline) References: Josseline Coburn et al. Guidelines for Management of Incidental Pulmonary Nodules Detected on CT Images: From the Fleischner Society 2017. Radiology. 2017;284(1):228-243 2. Bilateral ground-glass opacities which is a nonspecific finding. However, recommend evaluation for possible COVID. 3. Left lower lobe consolidation/atelectatic lung with air bronchograms. 4. Cardiomegaly. 5. Small moderate size hiatal hernia. 6. Stent within the left subclavian artery with likely thrombosis. Recommend nonemergent short-term ultrasound evaluation. PROCEDURE INFORMATION: Exam: CT Abdomen And Pelvis With Contrast Exam date and time: 05/24/2021 4:34 PM Age: 55 years old Clinical indication: Abdominal pain; Radiating TECHNIQUE: Imaging protocol: Computed tomography of the abdomen and pelvis with contrast. 3D rendering (Not supervised by radiologist): MIP and/or 3D reconstructed images were created by the technologist. COMPARISON: CT ABDOMEN PELVIS W 04/11/2021 7:00 PM FINDINGS: Lung base: See findings on same day power plant electrician CT chest study. Distal mediastinum: See findings on same day power plant electrician CT chest study. Liver: Unremarkable. No hepatic mass or cyst. Gallbladder and bile ducts: No gallstones. No intra or extrahepatic ductal dilatation. Pancreas: Unremarkable. There is minor duct dilatation. Spleen: No splenomegaly. Adrenal glands: Unremarkable. Kidneys and ureters: There is severe cortical atrophy of the kidneys with cortical calcifications present. No nephrolith, hydronephrosis or renal mass/cyst seen. More inferiorly within the right hemipelvis is a normal appearing kidney. Stomach and bowel: The stomach is largely collapsed. There is a left lower abdominal colostomy. Significant fecal load is seen throughout the colon. There is fecalization of the small bowel. No mucosal/bowel wall thickening. Postsurgical changes are seen within the left hemipelvis with multiple surgical clips, finding consistent with partial left colectomy. Appendix: No right lower quadrant inflammatory change. The appendix is not definitively seen. Intraperitoneal space: No free air or significant free fluid. Within the left perirectal area is a thinner walled, as compared to prior study, fluid collection with fluid collection now measuring 22 x 11 mm, series 5, image 104, previously measuring 48 x 15 mm, series 4 image 71 on 04/11/2021 study. There is a focus of air within the more anterior portion of this collection. Vasculature: No aneurysm. IVC is unremarkable. Lymph nodes: No lymphadenopathy. Urinary bladder: Noriega catheter in place. Reproductive: Uterus is essentially midline. Likely ovaries are unremarkable. Bones/joints: No acute osseous injury or underlying osseous mass. There is severe degenerative change to the left hip joint. Soft tissues: There is rightward curvature of the thoracolumbar spine. IMPRESSION: 1. No acute intraabdominal or intrapelvic finding. 2. Interval decrease in size of fluid component within the known left perirectal abscess. 3. Severe bilateral cortical atrophy of the kidneys with transplant kidney appearing unremarkable. 4. Significant fecal load within the colon and fecalization of the small bowel. 5. Severe degenerative change to the left hip joint. Dictated and Authenticated by: Jas Augsutin MD. Ordering:PHUONG Red MD
--- NOTE | 2021-05-24 18:24 | DI.VRAD_ITS ---
PROCEDURE INFORMATION: Exam: CT Left Upper Extremity With Contrast Exam date and time: 05/24/2021 4:34 PM Age: 55 years old Clinical indication: Pain; Upper arm; Left TECHNIQUE: Imaging protocol: CT of the Left upper extremity with intravenous contrast was performed. COMPARISON: No relevant prior studies available. FINDINGS: Bones/joints: Humerus, elbow joint, radius, and ulna are unremarkable as visualized. Soft tissues: There appears to be a prominent hematoma in the antecubital fossa region anteriorly. This measures approximately 4.5 x 3.5 by 4.9 cm. This could be a postoperative hematoma or could be related to access of the fistula for dialysis. Recommend clinical correlation Vasculature: Subclavian, axillary, and brachial artery are patent. Patient appears to have a dialysis fistula in the left upper extremity. This appears to be a [place] Jana type fistula with a radial cephalic anastomosis at the wrist. There also appears to be an anastomosis in the kit antecubital fossa suggesting a brachial cephalic anastomosis for upper arm fistula. The distal fistula may not have matured appropriately. Recommend clinical correlation. The forearm aspect of the fistula appears to be thrombosed with lack of internal contrast. The superior aspect of the brachial- cephalic vein fistula has filling defect consistent with intraluminal thrombus. See series 12, image 85. This is incompletely thrombosed at this time. There is a stent at the superior aspect of the cephalic vein outflow which appears to be thrombosed with internal low-attenuation clot like material. Lymph nodes: No axillary adenopathy. Lungs: Posterior left lower lobe segmental airspace consolidation concerning for infiltrate. IMPRESSION: 1. [place] dialysis fistula left upper extremity which appears to be a Jana type fistula from the distal radiocephalic anastomosis. This portion of the fistula appears to be thrombosed. 2. Appearance suggesting a secondary fistula which is brachial artery to cephalic vein at the antecubital fossa. 3. Large soft tissue hematoma suggested in the antecubital fossa measuring approximately 4.9 x 4.5 x 3.5 cm. This could be from surgical creation of the fistula or might be related to venous access for dialysis. 4. Upper aspect of the superior cephalic vein fistula has filling defect suggesting thrombus. 5. Endovascular stent at the most superior aspect of the cephalic vein outflow. The endovascular stent has internal material suggesting thrombus with occlusion. 6. No osseous abnormalities evident. 7. No adenopathy of the axilla. 8. Suggestion of a posterior left lower lobe subsegmental infiltrate. See series 4, image 1. Dictated and Authenticated by: Eliel Paez MD. Ordering:PHUONG Red MD
--- NOTE | 2021-05-24 19:34 | HPE_ITS ---
Date of service: 05/24/21 Time of Service: 19:35 Assessment and Plan Assessment and plan (1) Cellulitis of arm, left: Status: Acute Assessment and plan: She has been started on vancomycin. I will continue this and get pharmacy recommendations for dosing. (2) LLL pneumonia: Status: Acute Assessment and plan: There is a mild infiltrate on CT scan. She has a negative Covid test but I think admit her as a patient under investigation for Covid even though she has had the vaccine. She would be at risk for Covid because of her immunosuppression. She should have another test done in a day or two if suspicion remains. (3) Adrenal insufficiency: Status: Chronic Assessment and plan: She has a history of adrenal insufficiency. Because of her infection I will go ahead and give her hydrocortisone intravenously and continue her oral steroids. (4) Dehydration: Status: Acute Assessment and plan: She has received intravenous fluids I will continue lactated Ringer's tonight. Labs will be rechecked tomorrow. I will check another lactate and procalcitonin tonight. History of Present Illness History of Present Illness Chief Complaint: left arm pain, not feeling well Na rrative: This 65-year-old female is here because of left arm pain and not fe eling well. She has a long complicated past medical history that includes kidney failure and a long history of being nonambulatory. She has been a resident of the [facility] for the 3 years. She had a renal transplant because of renal failure few years ago. She recently had the fistula closed of her left arm. She has not felt well and is having some abdominal pain, left arm pain and has been sleeping poorly recently. She was transferred here for further evaluation. She was evaluated emergency department and found to have a mildly elevated white blood cell count mild elevation of her lactate and a cellulitis of her left arm along with a hematoma of the left antecubital fossa and possibly some mild pulmonary infiltrates that appear to be groundglass in appearance. Her Covid test is negative. She said she has had a dry mild cough. She has a chronic colostomy as well as a suprapubic catheter. She cannot tell me why she cannot walk. She does have a DNR/DNI status. She has not been around any coronavirus patients that she is aware of. She says she has had three doses of the vaccine. She received a dose of vancomycin here in the department. She is also received intravenous fluids. She is tired and just wants to get upstairs to the MedSur unit. Review of Systems Constitutional Constitutional: Denies chills, Reports fatigue, Denies fever(s) and Reports l ethargy ENT Ears, Nose, Mouth, and Throat: Denies odynophagia Cardiovascular Cardiovascular: Denies chest pain, Denies rapid heart rate, Denies irregular heart rhythm and Denies dyspnea Respiratory Respiratory: Denies dyspnea Comments: Very mild cough Gastrointestinal Gastrointestinal: Denies bloating, Denies cramping, Denies diarrhea, Denies odynophagia and Denies vomiting Genitourinary Genitourinary: Denies urinary frequency and Denies difficulty voiding Comments: She has a chronic suprapubic catheter in place. Musculoskeletal Comments: Left arm pain and redness. Endocrine Endocrine: Reports fatigue PFSH All Active Problems (Updated 05/24/21 @ 19:47 by Leonard German MD) Dehydration (Acute) Cellulitis of arm, left (Acute) LLL pneumonia (Acute) Incontinence in female (Acute) Discharge planning issues (Acute) Complicated UTI (urinary tract infection) (Acute) Candice-rectal abscess (Chronic) Ambulatory dysfunction (Chronic) Adrenal insufficiency (Chronic) Hypercoagulable state, primary (Chronic) Hypertension (Chronic) Osteoarthritis of left hip (Chronic) Medical History C5 vertebral fracture Cerebellar lesion Chronic anticoagulation Chronic kidney disease Hyperparathyroidism Lytic bone lesions on xray on CT Neurogenic bladder Osteoporosis Peripheral neuropathy Protein S deficiency Seizure disorder TBI (traumatic brain injury) Surgical History Colonoscopy - MAC (02/11/15) INO MERINO Fistula creation History of kidney transplant S/P kidney transplant Social History Smoking/Tobacco Use Status: Never Smoking risk assessment performed?: Yes Alcohol Intake: never Drug use: Never Substance use type: does not use Do you feel safe at home: Yes Do you feel safe in your relationship?: Yes Additional Social history: [facility] Allergies and Home Medications Allergies Allergy/AdvReac Type Severity Reaction Status Date / Time codeine Allergy Severe Unverified 05/24/21 18:35 divalproex sodium Allergy Unverified 05/24/21 18:33 [From Depakote] povidone-iodine AdvReac Unknown Skin Rash Unverified 05/24/21 18:34 [From Betadine] soap [From Betadine] AdvReac Skin Rash Unverified 05/24/21 18:33 Home Medications Medication Instructions Recorded Confirmed Type levetiracetam [Keppra] 1,500 mg PO BID 08/15/13 05/24/21 History mycophenolate mofetil 250 mg PO BID 10/19/18 05/24/21 History prednisone 5 mg PO Q OTHER DAY 10/19/18 05/24/21 History magnesium oxide 400 mg PO TID 10/29/18 05/24/21 History furosemide 20 mg PO BID #0 tab 11/04/18 05/24/21 Rx bisacodyl 10 mg KS BID PRN PRN #0 ea 02/11/19 04/11/21 Rx magnesium hydroxide [Milk of 30 ml PO BID PRN PRN #0 ml 02/11/19 04/11/21 Rx Magnesia] guaifenesin 100 mg/5 mL oral liquid 400 mg PO Q4H PRN 03/15/20 05/24/21 History Biofreeze (menthol) 1 applic TOPICAL TID 09/14/20 04/11/21 History Liquid Protein Fortifier 30 ml PO DAILY 09/14/20 04/11/21 History Myrbetriq 50 mg PO DAILY 09/14/20 05/24/21 History d-mannose 2,000 mg PO DAILY 09/14/20 05/24/21 History morphine 30 mg PO QHS 09/14/20 05/24/21 History sertraline 50 mg tablet 150 mg PO DAILY tab 11/08/20 05/24/21 History nystatin 100,000 applic TOPICAL TID 11/17/20 05/24/21 History polyethylene glycol 3350 17 g PO DAILY PRN 11/17/20 05/24/21 History tacrolimus 2 mg PO QAM 11/17/20 05/24/21 History Fleet Enema 118 ml KS DAILY PRN 04/11/21 04/11/21 History acetaminophen 650 mg PO Q6H PRN 04/11/21 05/24/21 History morphine 15 mg PO QAM 04/11/21 05/24/21 History sennosides [Senokot] 2 tab PO BID 04/11/21 05/24/21 History simethicone 125 mg PO TID PRN 04/11/21 05/24/21 History tacrolimus 1 mg PO QHS 04/11/21 05/24/21 History venlafaxine 75 mg PO DAILY 04/11/21 05/24/21 History L. acidophilus,casei,rhamnosus 1 cap PO DAILY #30 cap 04/14/21 05/24/21 Rx [Bio-K plus] ciprofloxacin HCl 500 mg PO BID #28 tab 04/14/21 Rx oxycodone-acetaminophen [Percocet] 1 tab PO Q6H PRN #20 tab 04/14/21 05/24/21 Rx acetic acid 50 ml IRRIGATION HS 05/24/21 05/24/21 History silver sulfadiazine 1 applic TOPICAL BID 05/24/21 05/24/21 History Exam Const General: cooperative, no acute distress, cushingoid, ill appearing and not lethargic Nutritional Appearance: overweight Orientation: alert, awake and oriented x3 HENMT Head: normal to inspection Mouth: abnormal oral mucosae Other: Mouth is dry. Neck Neck: normal visual inspection and no lymphadenopathy Resp Effort & Inspection: normal respiratory effort and able to speak in complete sentences Auscultation: clear to auscultation bilaterally, no rales, no rhonchi and no wheezes Cardio Jugular venous pressure: no JVD Rate: regular rate Rhythm: regular rhythm Heart Sounds: S1 normal, S2 normal, no gallops and no murmurs GI Palpation: soft, no hepatosplenomegaly, not rigid and nontender Other: A suprapubic catheter and colostomy bag are in place. Skin General skin exam: no rashes or lesions noted Extrem Other: She has decreased sensation to her both feet. There is mild swelling of both lower legs. Left antecubital fossa is mildly tender and there is moderate swelling of her left upper extremity. There are some erythema of the anterior arm and antecubital fossa consistent with cellulitis. No abscess is palpable. Results Labs Result diagrams: 05/24/21 14:56 05/24/21 15:43 Labs: Laboratory Results - last 24 hr 05/24/21 05/24/21 05/24/21 14:56 15:02 15:20 WBC 11.23 H RBC 4.23 Hgb 10.6 L Hct 35.1 L MCV 83.0 MCH 25.1 L MCHC 30.2 L RDW 15.7 H Plt Count 492 H MPV 9.2 Immature Gran % 0.5 Neutrophils % 79.7 Lymphocytes % 13.7 Monocytes % 5.0 Eosinophils % 0.9 Basophils % 0.2 Nucleated RBC % 0 Absolute Neutrophils 8.95 H Absolute Lymphocytes 1.54 Absolute Monocytes 0.56 Absolute Eosinophils 0.10 Absolute Basophils 0.02 VBG Lactate Sodium Potassium Chloride Carbon Dioxide Anion Gap BUN Creatinine Estimated GFR/1.73 m2 Glucose Calcium Magnesium Total Bilirubin AST ALT Alkaline Phosphatase Troponin I C-Reactive Protein Total Protein Albumin Urine Color Yellow Urine Clarity Sl Cloudy Urine pH 7.5 Ur Specific [place] 1.025 Urine Protein 100 H Urine Ketones Negative Urine Blood Large H Urine Nitrite Positive H Urine Bilirubin Negative Urine Urobilinogen 0.2 Ur Leukocyte Esterase Large H Urine RBC 20-50 H Urine WBC >50 H Ur Epithelial Cells Few Urine Crystals Mod Calcium Oxalate Urine Bacteria Many Urine Casts Negative Urine Mucus Negative Urine Other Negative Ur Culture Indicated? Yes Urine Glucose Negative COVID-19 Source Nasopharynx SARS-CoV-2 (PCR) Negative Influenza Type A (PCR) Negative Influenza Type B (PCR) Negative RSV (PCR) Negative 05/24/21 05/24/21 15:43 15:43 WBC RBC Hgb Hct MCV MCH MCHC RDW Plt Count MPV Immature Gran % Neutrophils % Lymphocytes % Monocytes % Eosinophils % Basophils % Nucleated RBC % Absolute Neutrophils Absolute Lymphocytes Absolute Monocytes Absolute Eosinophils Absolute Basophils VBG Lactate 1.6 H Sodium 138 Potassium 3.9 Chloride 101 Carbon Dioxide 25.6 Anion Gap 11.4 H BUN 18 Creatinine 0.8 Estimated GFR/1.73 m2 >= 60.00 Glucose 143 H Calcium 8.7 Magnesium 2.2 Total Bilirubin 0.3 AST 22 ALT 24 Alkaline Phosphatase 125 H Troponin I < 50 C-Reactive Protein 20.92 H Total Protein 8.2 Albumin 2.9 L Urine Color Urine Clarity Urine pH Ur Specific [place] Urine Protein Urine Ketones Urine Blood Urine Nitrite Urine Bilirubin Urine Urobilinogen Ur Leukocyte Esterase Urine RBC Urine WBC Ur Epithelial Cells Urine Crystals Urine Bacteria Urine Casts Urine Mucus Urine Other Ur Culture Indicated? Urine Glucose COVID-19 Source SARS-CoV-2 (PCR) Influenza Type A (PCR) Influenza Type B (PCR) RSV (PCR) Last Vital Signs Temp 37.4 C 05/24/21 14:24 Pulse 106 H 05/24/21 18:30 Resp 17 05/24/21 18:31 BP 142/56 H 05/24/21 18:30 Pulse Ox 94 05/24/21 18:31
[2021-05-24 19:50] LABS: Lactate 1.1 mmol/L (0.6-1.4)
[2021-05-24 20:22] LABS: Procalcitonin 0.1 ng/mL
[2021-05-24 21:37] LABS: Troponin I < 50 ng/L (<or=60)
[2021-05-24] MEDS: Hydrocortisone SOD SUC. 100 MG VIAL IVP (22:07)
[2021-05-24] MEDS: Normal Saline Flush 10 ML SYR IVP (22:07)
[2021-05-24] MEDS: Enoxaparin 40 MG/0.4 ML SYR SC (22:08)
[2021-05-24] MEDS: Senna TAB 2 TAB PO (22:09)
[2021-05-24] MEDS: Lactated Ringers 1,000 ML 100 ML IV (22:10)
[2021-05-25] MEDS: Tacrolimus 0.5 MG CAP 1 MG PO ×2 (00:01→20:26)
[2021-05-25] MEDS: Acetaminophen 325 MG TAB 500 MG PO (00:01)
[2021-05-25 00:02] VITALS: BP 124/70; PULSE 88; RESP 16; TEMP 37.8; O2SAT 93
[2021-05-25 03:34] VITALS: BP 126/68; PULSE 87; RESP 18; TEMP 36.6; O2SAT 94
[2021-05-25] MEDS: Hydrocortisone SOD SUC. 100 MG VIAL IVP ×2 (06:32→13:37)
[2021-05-25 07:47] LABS: Abs Immature Grans 0.02 10^3/uL (0.0-0.06); Absolute Basophil Count 0.02 10^3/uL (0.0-0.2); Absolute Lymphocyte Count 1.45 10^3/uL (1.2-3.4); Absolute Monocyte Count 0.41 10^3/uL (0.1-0.8); Absolute Neutrophil Count 7.98 10^3/uL (1.2-6.7); Basophils % 0.2; HCT 28.5 % (36.0-46.0); HGB 8.7 g/dL (11.2-15.7); Immature Grans % 0.2; Lymphocytes % 14.7; MCH 25.5 pg (27.0-33.0); MCHC 30.5 % (32.0-36.0); MCV 83.6 fL (80-95); MPV 9.1 fL (8.0-11.0); Monocytes % 4.1; Neutrophils % 80.8; Nucleated RBC 0 %; Platelet Count 393 10^3/uL (130-400); RBC 3.41 10^6/uL (3.93-5.22); RDW 15.8 % (11.7-14.6); RDW-SD 48.1 fL; WBC 9.88 10^3/uL (4.4-10.8)
[2021-05-25 08:01] LABS: ALT 18 U/L (14-59); AST 18 U/L (15-37); Albumin 2.4 g/dL (3.4-5.0); Alkaline Phosphatase 106 U/L (46-116); Anion Gap 8.2 mmol/L (3-11); BUN 13 mg/dL (7-18); Bilirubin, Total 0.3 mg/dL (0.2-1.0); CO2 24.8 mmol/L (21.0-32.0); CREATININE 0.6 mg/dL (0.55-1.02); Calcium 8.1 mg/dL (8.5-10.1); Chloride 106 mmol/L (98-107); Glucose 125 mg/dL (74-106); Potassium 4.2 mmol/L (3.5-5.1); Sodium 139 mmol/L (136-145); Total Protein 6.9 g/dL (6.4-8.2)
[2021-05-25] MEDS: Venlafaxine 37.5 MG CAPCR 75 MG PO (08:08)
[2021-05-25] MEDS: Magnesium Oxide 400 MG TAB PO ×3 (08:08→20:24)
[2021-05-25] MEDS: Senna TAB 2 TAB PO ×2 (08:08→20:25)
[2021-05-25] MEDS: levETIRAcetam 500 MG TAB 1500 MG PO ×2 (08:08→20:24)
[2021-05-25] MEDS: VANCOMYCIN/WATER (PEG) 1 GM/200 ML BAG IVPB ×2 (08:08→17:43)
[2021-05-25] MEDS: predniSONE 5 MG TAB PO (08:08)
[2021-05-25] MEDS: Sertraline 50 MG TAB 150 MG PO (08:09)
[2021-05-25] MEDS: Silver sulfaDIAZINE 1% 25 GM TUBE TP ×2 (08:10→20:27)
[2021-05-25] MEDS: Normal Saline Flush 10 ML SYR IVP (08:11)
[2021-05-25] MEDS: Nystatin CREAM 15 GM TUBE TP ×3 (08:11→20:28)
[2021-05-25] MEDS: Lactated Ringers 1,000 ML 100 ML IV (08:12)
[2021-05-25 08:21] VITALS: BP 151/80; PULSE 70; RESP 16; TEMP 36.6; O2SAT 95
[2021-05-25] MEDS: Mirabegron 50 MG TABCR PO (10:11)
[2021-05-25] MEDS: Tacrolimus 0.5 MG CAP 2 MG PO (10:12)
--- NOTE | 2021-05-25 10:16 | PT.INIE ---
Date of service: 05/25/21 Time of Service: 10:16 PT Notes Visit Reasons: Pneumonia, Cellulitis Physical Therapy Inpatient Initial Evaluation Date: 05/25/2021 Referring Doctor: Renée Dumont MD PT Orders: PT CONSULT: Limited ability Precautions: Fall. Standard. Wheelchair-bound, mechanical lift only for all transfers. UE sleeve on at all times to minimize swelling in L UE. COVID-[address] Patient Profile/Admitting Diagnosis: Stacy is a 55-year-old female who presented to the ED on 05/24/2021 with left arm swelling, increased redness, increased warmth. She is status post left-sided fistula ligation a week ago. Patient is diagnosed with cellulitis of left arm, left lower lobe pneumonia, dehydration, and COVID-19 infection. PMHX: All Active Problems (Updated 05/24/21 @ 19:47 by Leonard German MD) Dehydration (Acute) Cellulitis of arm, left (Acute) LLL pneumonia (Acute) Incontinence in female (Acute) Discharge planning issues (Acute) Complicated UTI (urinary tract infection) (Acute) Candice-rectal abscess (Chronic) Ambulatory dysfunction (Chronic) Adrenal insufficiency (Chronic) Hypercoagulable state, primary (Chronic) Hypertension (Chronic) Osteoarthritis of left hip (Chronic) Medical History C5 vertebral fracture Cerebellar lesion Chronic anticoagulation Chronic kidney disease Hyperparathyroidism Lytic bone lesions on xray on CT Neurogenic bladder Osteoporosis Peripheral neuropathy Protein S deficiency Seizure disorder TBI (traumatic brain injury) Surgical History Colonoscopy - MAC (02/11/15) INO MERINO Fistula creation History of kidney transplant S/P kidney transplant Social History/Home Situation: LTC resident at the SNF. Wheelchair-bound since summer. Equipment Owned/DME: Wheelchair Subjective: Agreeable to PT consult. Reports considerable pain in the left UE but was able to manage her range of motion exercises later in the session. Tearful about her current medical status. Reports significant difficulty holding onto paper cups, med surg community health representative Hannah pteers. Objective: General Observation: Supine in bed. L UE swollen, mildy erythematous, and heavy. Surgical stitches seen on brachial area. Bilateral fixed calcaneovalgus. Mental Status: Alert and oriented as to person, place, time, and purpose. Able to pay attention, focus, and respond appropriately. Pain: 5-6/10 in L UE ROM: Right Upper Extremity: Shoulder Flexion allows up to 80 degrees. Shoulder abduction allows up to 60 degrees. Elbow flexion WFL. Wrist flexion WFL. Functional opening and closing of hand limited, IP flexion limited. Left Upper Extremity: Shoulder Flexion allows up to 60 degrees. Shoulder abduction allows up to 45 degrees. Elbow flexion WFL. Wrist flexion WFL. Functional opening and closing of hand limited, IP flexion limited. Right Lower Extremity: Hip flexion unable. Hip abduction unable. Knee flexion about 10 degrees. Ankle dorsiflexion absent. Ankle plantarflexion absent. Left Lower Extremity: Hip flexion unable. Hip abduction unable. Knee flexion about 10 degrees. Ankle dorsiflexion absent. Ankle plantarflexion absent. Strength: Right Upper Extremity: Shoulder flexors 3-/5. Shoulder abductors 3-/5. Elbow flexors 3/5. Elbow extensors 3-/5. Sizing Sponger weak and non-functional. Left Upper Extremity: Shoulder flexors 3-/5. Shoulder abductors 3-/5. Elbow flexors 3/5. Elbow extensors 3-/5. Sizing Sponger weak and non-functional. Right Lower Extremity: Hip flexors 1/5. Hip abductors 1/5. Knee flexors 2-/5. Knee extensors 2-/5. Ankle dorsiflexors 1/5. Ankle plantarflexors 1/5. Left Lower Extremity: Hip flexors 1/5. Hip abductors 1/5. Knee flexors 2-/5. Knee extensors 2-/5. Ankle dorsiflexors 1/5. Ankle plantarflexors 1/5. Bed Mobility/Transfers: Rolling with moderate assist Supine to sit moderate assist of 2 Sit to supine moderate assist of 2 Sit to stand unable, mechanical lift only Stand to sit with unable, mechanical lift only Reclining chair to bed unable, mechanical lift only Gait: Unable, mechanical lift only Balance: Static Sitting: Poor Dynamic Sitting: Poor Static Standing: Unable Dynamic Standing: Unable Special Tests: Mobility Limitations Standardized Measure [facility] AM-PAC 6 clicks Basic Mobility Inpatient Short Form: Raw Score: 6 CMS Score: 100% deficit Informed Consent/Education: Patient was instructed in purpose of PT consult and plan of care. Agreeable to proceed with established PT POC to achieve personal goals. Assessment: Darlene has been non-ambulatory for over a year now and requires use of mechanical lift for all transfers. Patient presents with clinical signs and symptoms consistent with current/admitting diagnoses that have resulted to mobility limitations, gait instability, generalized weakness, and overall ADL decline as demonstrated by the following impairment level findings: 1. Decreased strength to B UE/LE major muscle groups 2. Absent sitting/standing balance 3. Impaired activity tolerance 4. Limitation of joint range of motion in in B UE/LE 5. Swelling in left UE 6. Fixed bilateral calcaneal valgus deformity Impairments are contributing to the following functional limitations: 1. Decline in bed mobility skills 2. Decline in transfer skills 3. Non-ambulatory, wheelchair-bound 4. Increased completion time for mobility ADL performance 5. Increased risk skin breakdown 6. Increased risk for joint contractures Patient is assessed as a [id number] high complexity based on the following: History: 55-year-old female with past medical history as indicated above Examination: Demonstrable impairment in strength, balance, and mobility level with underlying impairments and functional limitations as exhibited above as well as deficit score of 100% utilizing the [facility] Mobility Inpatient Short Form Presentation: Evolving Decision Makin high complexity Goals: Goals X1 week 1. Patient will decrease L UE swelling with proper use of L UE compression garment and AROM exercises to increase participation with ADLs 2. Patient will increase active range of motion in L shoulder and elbow to decrease swelling and increase ADL participation 3. Patient will demonstrate 100% mastery of B UE/LE exercises to minimize contracture formation and prevent skin breakdown Plan of Care/Treatment Plan: 1-2x/day, 7 days/week x 1 week. Plan of care has been reviewed with the MANAGER POLICY providing the service under Physical Therapy direction. Initiate Physical Therapy intervention for pain management, edema management, and AROM exercises. DISCHARGE RECOMMENDATIONS: [] Home with no services [] [] Home with services [specify] [] Home with outpatient PT [] [] SNF for continued rehabilitation [] [X] Rope Twisting Machine Operator Care. Return to SNF when medically cleared by hospitalist. Benefit from continued PT services to address impairments in range of motion, limb girth, and strength. [] SNF versus LTC based on ability to participate and progress [] TREATMENT CODE/TIME: [id number] x 29 minutes beginning at 10:16 AM. Thank you for the opportunity to participate in the care of this patient. Scarlet Jade PT, DPT, CLT [facility] [place], [place]
[2021-05-25 12:30] LABS: Source Nasal/Nares
--- NOTE | 2021-05-25 12:31 | PDOC.CMIN ---
- If Service Date Differs Date of service: 05/25/21 Time of Service: 12:31 Care Management Initial Assess REASON FOR HOSPITALIZATION:: cellulitis of left arm PAST MEDICAL HISTORY/PAST SURGICAL HISTORY:: All Active Problems (Updated 05/24/21 @ 19:47 by Leonard German MD). Dehydration (Acute). Cellulitis of arm, left (Acute). LLL pneumonia (Acute). Incontinence in female (Acute). Discharge planning issues (Acute). Complicated UTI (urinary tract infection) (Acute). Candice-rectal abscess (Chronic). Ambulatory dysfunction (Chronic). Adrenal insufficiency (Chronic). Hypercoagulable state, primary (Chronic). Hypertension (Chronic). Osteoarthritis of left hip (Chronic). Medical History . C5 vertebral fracture. Cerebellar lesion. Chronic anticoagulation. Chronic kidney disease. Hyperparathyroidism. Lytic bone lesions on xray. on CT. Neurogenic bladder. Osteoporosis. Peripheral neuropathy. Protein S deficiency. Seizure disorder. TBI (traumatic brain injury). Surgical History . Colonoscopy - MAC (02/11/15). INO MERINO. Fistula creation. History of kidney transplant. S/P kidney transplant PREVIOUS FUNCTIONAL STATUS/SOCIAL/FAMILY SUPPORTS:: Darlene lives at [facility]. She has 2 sisters, Nicol Gruber, who is her legal guardian and Miley Peralta . Both live in the area and are close and supportive. Darlene requires some assistance with ADLs and personal care as well as help with transfers and mobilization, which she receives at [facility]. CURRENT FUNCTIONAL STATUS:: was unable to meet with Darlene in person as she is on Covid precautions, but was able to speak to her on the phone. Darlene stated that she is alright but that her arm really hurts. She was admitted with cellulitis in her left upper extremity. She is also fatigued and has some mild pulmonary ground glass infiltrates. ADVANCE DIRECTIVES:: [facility] on file Has patient been provided with info about the portal/API?: Yes Did the patient sign up for the portal?: No CODE STATUS:: DNR/DNI INSURANCE COVERAGE / FINANCIAL ISSUES:: Medicare. Medicaid CURRENT HOME/COMMUNITY SERVICES/EQUIPMENT:: lives in a correction facility PRIMARY CARE PHYSICIAN:: Randall Ling POTENTIAL DISCHARGE NEEDS:: follow up with PCP and plan of care PATIENT/FAMILY EDUCATION NEEDS:: Review of discharge instructions, medications, follow up plan, activity, limitations, Ask Me Three TRANSPORTATION:: via facility van PLAN:: Darlene gayle return to [facility] when medically cleared. She will follow up with facility providers and plan of care and transport via facility van. will continue to support Darlene and her discharge needs.
[2021-05-25 13:13] LABS: COVID-19 PCR Negative (Negative); Influenza A PCR Negative (Negative); Influenza B PCR Negative (Negative); RSV PCR Negative (Negative)
[2021-05-25 13:23] VITALS: BP 130/70; PULSE 83; RESP 18; TEMP 36.8; O2SAT 94
[2021-05-25] MEDS: Hydrocortisone SOD SUC. 100 MG VIAL 50 MG IVP ×2 (14:59→21:27)
[2021-05-25] MEDS: REMDESIVIR 200 MG in Normal Saline 250 ML 250 MG IVPB (15:59)
--- NOTE | 2021-05-25 15:59 | W.PM.PROGNOT ---
Date of Service Date of service: 05/25/21 Time of Service: 15:59 Assessment and Plan Assessment and plan (1) Cellulitis of arm, left: Status: Acute Assessment and plan: Continue vancomycin. I have added zosyn to cover for HCAP. Await blood culture results. Discussed CT LUE with radiology: thrombosis was seen, but no fluid collection. I have forwarded the images to [facility] with plans for a consult once we know results of blood cultures. (2) LLL pneumonia: Status: Acute Assessment and plan: As above (3) Adrenal insufficiency: Status: Chronic Assessment and plan: She has a history of adrenal insufficiency. Because of her infection I will go ahead and give her hydrocortisone intravenously and continue her oral steroids. (4) Ground glass opacity present on imaging of lung: Status: Acute Assessment and plan: Concern for COVID-19. Obtain pulmonary consult. Start empiric remdesivir/vitamins. Keep in PUI status. D/c IVF and trial a dose of lasix. (5) S/P kidney transplant: Assessment and plan: Continue immunosuppressants (6) Dehydration: Status: Resolved (7) Discharge planning issues: Status: Acute Assessment and plan: DNR/DNI Palliative care consult. (8) DVT prophylaxis: Status: Acute Assessment and plan: SC enoxaparin Subjective Subjective Interval history since last seen: Darlene Reports feeling short of breath, like I might need oxygen. She reports a nonproductive cough for a couple of days. Denies dizziness, chest pain, nausea. Her LUE does not hurt today. Exam Narrative Exam Narrative: General: Pleasant anxious middle-aged female who is doing word puzzles, A&Ox3 HEENT: EOMI, dry MM Heart: RRR, +AI Lungs: Bibasilar rales Abdomen: soft, distended, nontender Extremities: 2+ BLE edema Objective Last Vital Signs Temp 36.8 C 05/25/21 13:23 Pulse 83 05/25/21 13:23 Resp 18 05/25/21 13:23 BP 130/70 05/25/21 13:23 Pulse Ox 94 05/25/21 13:23 Laboratory Results - last 24 hr 05/24/21 05/24/21 05/24/21 15:02 15:43 19:47 WBC RBC Hgb Hct MCV MCH MCHC RDW Plt Count MPV Immature Gran % Neutrophils % Lymphocytes % Monocytes % Eosinophils % Basophils % Nucleated RBC % Absolute Neutrophils Absolute Lymphocytes Absolute Monocytes Absolute Eosinophils Absolute Basophils VBG Lactate Sodium 138 Potassium 3.9 Chloride 101 Carbon Dioxide 25.6 Anion Gap 11.4 H BUN 18 Creatinine 0.8 Estimated GFR/1.73 m2 >= 60.00 Glucose 143 H Calcium 8.7 Magnesium 2.2 Total Bilirubin 0.3 AST 22 ALT 24 Alkaline Phosphatase 125 H Troponin I < 50 < 50 C-Reactive Protein 20.92 H Total Protein 8.2 Albumin 2.9 L Procalcitonin COVID-19 Source SARS-CoV-2 (PCR) Negative Influenza Type A (PCR) Negative Influenza Type B (PCR) Negative RSV (PCR) Negative 05/24/21 05/25/21 05/25/21 19:47 07:00 07:00 WBC 9.88 RBC 3.41 L Hgb 8.7 L Hct 28.5 L MCV 83.6 MCH 25.5 L MCHC 30.5 L RDW 15.8 H Plt Count 393 MPV 9.1 Immature Gran % 0.2 Neutrophils % 80.8 Lymphocytes % 14.7 Monocytes % 4.1 Eosinophils % 0.0 Basophils % 0.2 Nucleated RBC % 0 Absolute Neutrophils 7.98 H Absolute Lymphocytes 1.45 Absolute Monocytes 0.41 Absolute Eosinophils 0.00 Absolute Basophils 0.02 VBG Lactate 1.1 Sodium 139 Potassium 4.2 Chloride 106 Carbon Dioxide 24.8 Anion Gap 8.2 BUN 13 Creatinine 0.6 Estimated GFR/1.73 m2 >= 60.00 Glucose 125 H Calcium 8.1 L Magnesium Total Bilirubin 0.3 AST 18 ALT 18 Alkaline Phosphatase 106 Troponin I C-Reactive Protein Total Protein 6.9 Albumin 2.4 L Procalcitonin 0.1 COVID-19 Source SARS-CoV-2 (PCR) Influenza Type A (PCR) Influenza Type B (PCR) RSV (PCR) 05/25/21 12:00 WBC RBC Hgb Hct MCV MCH MCHC RDW Plt Count MPV Immature Gran % Neutrophils % Lymphocytes % Monocytes % Eosinophils % Basophils % Nucleated RBC % Absolute Neutrophils Absolute Lymphocytes Absolute Monocytes Absolute Eosinophils Absolute Basophils VBG Lactate Sodium Potassium Chloride Carbon Dioxide Anion Gap BUN Creatinine Estimated GFR/1.73 m2 Glucose Calcium Magnesium Total Bilirubin AST ALT Alkaline Phosphatase Troponin I C-Reactive Protein Total Protein Albumin Procalcitonin COVID-19 Source Nasal/Nares SARS-CoV-2 (PCR) Negative Influenza Type A (PCR) Negative Influenza Type B (PCR) Negative RSV (PCR) Negative
[2021-05-25] MEDS: Normal Saline 500 ML 100 ML IV (16:00)
[2021-05-25] MEDS: Furosemide 20 MG/2 ML VIAL IVP (16:12)
[2021-05-25] MEDS: PIPERACILLIN/TAZO 3.375 GM in Normal Saline 50 ML IVPB ×2 (17:23→23:12)
[2021-05-25 17:43] VITALS: BP 128/68; PULSE 80; RESP 18; TEMP 36.8; O2SAT 94
[2021-05-25] MEDS: Ascorbic Acid 500 MG TAB PO (20:24)
[2021-05-25] MEDS: Famotidine 20 MG TAB PO (20:25)
[2021-05-25] MEDS: Enoxaparin 40 MG/0.4 ML SYR SC (21:28)
[2021-05-25 23:10] VITALS: BP 155/73; PULSE 75; RESP 18; TEMP 36.6; O2SAT 95
[2021-05-26] MEDS: PIPERACILLIN/TAZO 3.375 GM in Normal Saline 50 ML IVPB (04:01)
[2021-05-26] MEDS: VANCOMYCIN/WATER (PEG) 1 GM/200 ML BAG IVPB ×2 (05:13→16:37)
[2021-05-26 07:16] LABS: Abs Immature Grans 0.05 10^3/uL (0.0-0.06); Absolute Basophil Count 0.02 10^3/uL (0.0-0.2); Absolute Lymphocyte Count 1.64 10^3/uL (1.2-3.4); Absolute Monocyte Count 0.49 10^3/uL (0.1-0.8); Absolute Neutrophil Count 4.42 10^3/uL (1.2-6.7); Basophils % 0.3; HGB 8.5 g/dL (11.2-15.7); Immature Grans % 0.8; Lymphocytes % 24.8; MCH 25.2 pg (27.0-33.0); MCHC 30.4 % (32.0-36.0); MCV 83.1 fL (80-95); Monocytes % 7.4; Neutrophils % 66.7; Nucleated RBC 0 %; Platelet Count 388 10^3/uL (130-400); RBC 3.37 10^6/uL (3.93-5.22); RDW 15.2 % (11.7-14.6); RDW-SD 46.2 fL; WBC 6.62 10^3/uL (4.4-10.8)
[2021-05-26 07:46] LABS: Anion Gap 11.7 mmol/L (3-11); BUN 17 mg/dL (7-18); CO2 25.3 mmol/L (21.0-32.0); CREATININE 0.6 mg/dL (0.55-1.02); Chloride 103 mmol/L (98-107); Glucose 109 mg/dL (74-106); Magnesium 2.2 mg/dL (1.8-2.4); Potassium 3.2 mmol/L (3.5-5.1); Sodium 140 mmol/L (136-145)
[2021-05-26] MEDS: Normal Saline Flush 10 ML SYR IVP (08:26)
[2021-05-26] MEDS: Cholecalciferol (Vitamin D3) 1,000 UNIT TAB 2000 UNITS PO (08:27)
[2021-05-26] MEDS: Famotidine 20 MG TAB PO ×2 (08:27→21:22)
[2021-05-26] MEDS: Senna TAB 2 TAB PO ×2 (08:27→21:22)
[2021-05-26] MEDS: Tacrolimus 0.5 MG CAP 2 MG PO (08:27)
[2021-05-26] MEDS: Mirabegron 50 MG TABCR PO (08:28)
[2021-05-26] MEDS: Sertraline 50 MG TAB 150 MG PO (08:28)
[2021-05-26] MEDS: levETIRAcetam 500 MG TAB 1500 MG PO ×2 (08:28→21:21)
[2021-05-26] MEDS: Venlafaxine 37.5 MG CAPCR 75 MG PO (08:29)
[2021-05-26] MEDS: Zinc Sulfate 220 MG TAB PO (08:29)
[2021-05-26] MEDS: Magnesium Oxide 400 MG TAB PO ×3 (08:30→21:22)
[2021-05-26] MEDS: Ascorbic Acid 500 MG TAB PO (08:30)
[2021-05-26 08:36] LABS: Source Nasopharynx
[2021-05-26] MEDS: Hydrocortisone SOD SUC. 100 MG VIAL 50 MG IVP (08:38)
[2021-05-26] MEDS: Nystatin CREAM 15 GM TUBE TP ×3 (08:39→21:23)
[2021-05-26] MEDS: Silver sulfaDIAZINE 1% 25 GM TUBE TP ×2 (08:39→21:22)
[2021-05-26 08:43] VITALS: BP 161/82; PULSE 63; RESP 18; TEMP 35.9; O2SAT 95
[2021-05-26 09:04] LABS: Lab Add On Test DONE
--- NOTE | 2021-05-26 09:10 | OT.INIE ---
Occupational Therapy Notes Inpatient Occupational Therapy Evaluation Date: 05/26/21 Referring Doctor: Renée Dumont MD OT Orders: Eval and Treat, Non Urgent Precautions: Fall, DNR/DNI, Enteric Precautions PATIENT PROFILE/ADMITTING DIAGNOSIS: Pt is a 55 year old female admitted through the ER with a clinical impression of Cellulitis of arm, left, LLL pneumonia. Past Medical History: All Active Problems (Updated 05/24/21 @ 19:47 by Leonard German MD) Dehydration (Acute) Cellulitis of arm, left (Acute) LLL pneumonia (Acute) Incontinence in female (Acute) Discharge planning issues (Acute) Complicated UTI (urinary tract infection) (Acute) Candice-rectal abscess (Chronic) Ambulatory dysfunction (Chronic) Adrenal insufficiency (Chronic) Hypercoagulable state, primary (Chronic) Hypertension (Chronic) Osteoarthritis of left hip (Chronic) Medical History C5 vertebral fracture Cerebellar lesion Chronic anticoagulation Chronic kidney disease Hyperparathyroidism Lytic bone lesions on xray on CT Neurogenic bladder Osteoporosis Peripheral neuropathy Protein S deficiency Seizure disorder TBI (traumatic brain injury) Surgical History Colonoscopy - MAC (02/11/15) INO MERINO Fistula creation History of kidney transplant S/P kidney transplant Social History/Home Situation: Pt states that she lives [facility] She reports that she is at this time and since she has been [facility] she has been max (A) for all ADLs/IADLs and later states that she requires (A) with putting on (B) socks, pulling up her pants, and helping her whenever she needs it for food. Equipment owned/DME: DME needs met by SNF SUBJECTIVE: Pt was sitting in bed when OT arrived. She was agreeable to OT session. She reports that she went to [facility] after last hospitalization and has been there since. She reports that she is max (A) for her ADLs and has been since her last admission. She states that she is always willing to try but that she hasn't performed her ADLS in a long time. OBJECTIVE: General Observation: suprapubic catheter, IV (R) UEx2 (1 being removed due to pain), pleasant, emotional at times, ostomy bag in place Mental Status: A&Ox3 Pain: c/o pain in (B) LE with cramping and is tearful. This is pts baseline from previous hospitalization. ROM: RUE Shoulder flexion limited to 80*, elbow WNL, hand and digits WNL L UE Shoulder flexion ~90*, elbow WNL, hand and digits WNL Pt has garment on (L) UE due to fistula removal STRENGTH: RUE Shoulder flexion 3-/5, bicep 3-/5, tricep 2+/5, global marketing intern is very weak LUE Shoulder flexion 3-/5, bicep 3-/5, tricep 3-/5, global marketing intern is very weak FUNCTIONAL MOBILITY/ADLS: OT did not assess pts functional mobility at this time. She states that she is max (A)x2 for functional mobility. BATHING Sitting in bed with max (A) set up, (I) face, max (A) hair and max (B) UE, abdomen and back at this time, max (A) (B) LE DRESSING Pt is max (A) don and doff (B) LE socks, max (A) don and doffing hospital gown EATING Sitting in bed OT assessed pt hold her silverware which pt tolerated ok, she denied eating as she wanted to call her sister first. OT recommends that pt utilize a cup with handles at all times, that pt have (A) with cutting her food. (R) UE is sore today she does have elbow AROM enough to bring food to mouth. BALANCE: Static sitting Good Dynamic Sitting Good SPECIAL TESTS: Daily Activity Limitations Standardized Measure [facility] AM -PAC ?6 clicks? Daily Activity Inpatient Short Form: Raw score: 8 Standardized score: 22.86 CMS score: 85.69% INFORMED CONSENT/EDUCATION: Pt instructed in purpose of OT Consult and plan of care. ASSESSMENT: Patient is a 55-year-old female referred to occupational therapy services with diagnosis of ground glass opacity present on imaging of anna, dehydratoin, cellulitis of (L) UE, LLL Penumonia, incontinence female, complicated UTI, candice-rectal abscess, ambulatory dysfunction, adrenal insufficiency, hypercoagulable state, hypertension, osteoarthritis of (L) hip. Patient presents with clinical signs and symptoms consistent with dx. OT went in to see pt which was recommended by PT due to pts covid precautions and pts inability to perform her ADLS. Pt states that she is max (A) for her ADLs at [facility] and that with her fistula removal and her pain in her (R) UE she requires (A) with bathing, dressing, eating. She can wash her face but this is not ideal. She has been max(A) for about 2 years now, since her last admission to [facility]. She states that she does not feel that she will require Occupational Therapy because she does need (A). She does not have the ROM to be able to perform her ADLs (I) with her (B) UE. Patient is assessed as a Moderate 67880 complexity based on the following: History: See Above Examination: See Above Presentation: Evolving Decision Making: AMPAC score 8, CMS score 85.69% GOALS 1. OT will evaluate pt for adaptive equipment for eating. PLAN OF CARE/TREATMENT PLAN: Seen for 1 more OT session. DISCHARGE RECOMMENDATIONS OT recommends that pt return to SNF when medically cleared per MD. TREATMENT TIME/MINUTES/CODES 06724, 41994, 30 minutes (08:35) Nichole Garrett, OTR/[facility]
[2021-05-26 09:19] LABS: COVID-19 PCR Negative (Negative); Influenza A PCR Negative (Negative); Influenza B PCR Negative (Negative); RSV PCR Negative (Negative)
[2021-05-26] MEDS: CEFEPIME 2 GM in Normal Saline 100 ML IVPB ×2 (09:48→18:21)
[2021-05-26] MEDS: Potassium Chloride 20 MEQ TABCR 40 MEQ PO (10:36)
--- NOTE | 2021-05-26 11:27 | PDOC.CMPRO ---
- If Service Date Differs Date of service: 05/26/21 Time of Service: 11:27 Care Management Progress Note S/O: Darlene continues to be closely monitored and treated, per MD, urology ([facility]) and [place] being consulted. No change to overall plan, Darlene will return to [facility] upon discharge. CM continues to follow. A: 55 year old female admitted to [facility] 05/24/21 with Pneumonia and cellulitis P: Darlene will return to [facility] when medically cleared. She will follow up with facility providers and plan of care and transport via facility van. CM will continue to support Darlene and her discharge needs.
[2021-05-26 11:46] VITALS: BP 154/79; PULSE 73; RESP 21; TEMP 36.3; O2SAT 95
--- NOTE | 2021-05-26 12:22 | UCONE_ITS ---
Date of service: 05/26/21 Time of Service: 12: Assessment and Plan Assessment and plan (1) Incontinence in female: Status: Acute Assessment and plan: Her bladder is very likely contracted and under co nsiderable pressure at this point and unable to retain urine. She is already on maximum doses of beta 3 agonists. All of the other treatment options are quite invasive including things like an augmentation cystoplasty. History of Present Illness History of Present Illness Chief Complaint: Urinary incontinence Narrative: This is a 55-year-old woman who has a history of incomplete bladder emptying. She was initially managed with intermittent catheterization. Due to issues with her hips and mobility, positioning for intermittent catheterization was very painful. The patient ultimately made the decision to have a suprapubic tube placed. The tube was placed by interventional radiology and subsequently upsized. It is currently changed by the staff at [facility] and rehab. She has persistent leakage around the suprapubic catheter. She is on maximum doses of Myrbetriq. She has chronic constipation and is not a candidate for anticholinergics. She is currently hospitalized with cellulitis. I have been asked to change her suprapubic tube. PFSH All Active Problems (Updated 05/25/21 @ 16:11 by Renée Dumont MD) DVT prophylaxis (Acute) Ground glass opacity present on imaging of lung (Acute) Cellulitis of arm, left (Acute) LLL pneumonia (Acute) Incontinence in female (Acute) Discharge planning issues (Acute) Complicated UTI (urinary tract infection) (Acute) Candice-rectal abscess (Chronic) Ambulatory dysfunction (Chronic) Adrenal insufficiency (Chronic) Hypercoagulable state, primary (Chronic) Hypertension (Chronic) Osteoarthritis of left hip (Chronic) Medical History C5 vertebral fracture Cerebellar lesion Chronic anticoagulation Chronic kidney disease Hyperparathyroidism Lytic bone lesions on xray on CT Neurogenic bladder Osteoporosis Peripheral neuropathy Protein S deficiency Seizure disorder TBI (traumatic brain injury) Surgical History Colonoscopy - MAC (02/11/15) INO MERINO Fistula creation History of kidney transplant S/P kidney transplant Social History Smoking/Tobacco Use Status: Never Smoking risk assessment performed?: Yes Alcohol Intake: never Drug use: Never Substance use type: does not use Do you feel safe at home: Yes Do you feel safe in your relationship?: Yes Additional Social history: Lives at [facility] Results Last Vital Signs Temp 36.3 C L 05/26/21 11:46 Pulse 73 05/26/21 11:46 Resp 21 05/26/21 11:46 BP 154/79 H 05/26/21 11:46 Pulse Ox 95 05/26/21 11:46 Labs Result diagrams: 05/26/21 06:45 05/26/21 06:45 Labs: Laboratory Results - last 24 hr 05/25/21 05/26/21 05/26/21 12:00 06:45 06:45 WBC 6.62 D RBC 3.37 L Hgb 8.5 L Hct 28.0 L MCV 83.1 MCH 25.2 L MCHC 30.4 L RDW 15.2 H Plt Count 388 MPV 9.0 Immature Gran % 0.8 Neutrophils % 66.7 Lymphocytes % 24.8 Monocytes % 7.4 Eosinophils % 0.0 Basophils % 0.3 Nucleated RBC % 0 Absolute Neutrophils 4.42 Absolute Lymphocytes 1.64 Absolute Monocytes 0.49 Absolute Eosinophils 0.00 Absolute Basophils 0.02 Sodium 140 Potassium 3.2 L D Chloride 103 Carbon Dioxide 25.3 Anion Gap 11.7 H BUN 17 Creatinine 0.6 Estimated GFR/1.73 m2 >= 60.00 Glucose 109 H Calcium 8.0 L Magnesium 2.2 COVID-19 Source Nasal/Nares SARS-CoV-2 (PCR) Negative Influenza Type A (PCR) Negative Influenza Type B (PCR) Negative RSV (PCR) Negative Add-On Test Request 05/26/21 05/26/21 06:45 08:20 WBC RBC Hgb Hct MCV MCH MCHC RDW Plt Count MPV Immature Gran % Neutrophils % Lymphocytes % Monocytes % Eosinophils % Basophils % Nucleated RBC % Absolute Neutrophils Absolute Lymphocytes Absolute Monocytes Absolute Eosinophils Absolute Basophils Sodium Potassium Chloride Carbon Dioxide Anion Gap BUN Creatinine Estimated GFR/1.73 m2 Glucose Calcium Magnesium COVID-19 Source Nasopharynx SARS-CoV-2 (PCR) Negative Influenza Type A (PCR) Negative Influenza Type B (PCR) Negative RSV (PCR) Negative Add-On Test Request DONE Change Bladder Catheter Text: The catheter balloon was deflated by pulling 10 cc of sterile water from the balloon. I then removed her indwelling catheter. The suprapubic site was prepped with Betadine. A new 18 Romanian catheter was passed back through the suprapubic tract into the bladder. The catheter balloon was inflated with 10 cc of sterile water. The catheter was hooked to gravity drainage. She tolerated the procedure well.
--- NOTE | 2021-05-26 12:51 | PTTR_ITS ---
Date of service: 05/26/21 Time of Service: 12:51 PT Notes Visit Reasons: Pneumonia, Cellulitis Physical Therapy Inpatient Treatment Note Date: 05/26/2021 Precautions: Fall. Standard. Wheelchair-bound, mechanical lift only for all transfers. UE sleeve on at all times to minimize swelling in L UE. Subjective: Agreeable to exercise session. Objective: General Observation: Supine in bed. L UE swollen, mildy erythematous, and heavy. L UE sleeve on. Surgical stitches seen on brachial area. Bilateral fixed calcaneovalgus. Mental Status: Alert and oriented as to person, place, time, and purpose. Able to pay attention, focus, and respond appropriately. Pain: 5-6/10 in L UE Bed Mobility/Transfers: Rolling with moderate assist Supine to sit moderate assist of 2 Sit to supine moderate assist of 2 Sit to stand unable, mechanical lift only Stand to sit with unable, mechanical lift only Reclining chair to bed unable, mechanical lift only THERA EX: Continued with AROM to B UE and isometric exercises to B LE as documented in the treatment sheet. Provided proper L UE and B LE positioning techniques after session. Gait: Unable, mechanical lift only. Assessment: COVID-19 infection negative. Able to perform bed level AROM exercises for UE with minimal cueing. No movement available in hips, only able to tolerate isometrics exercises. Reports pain with passive movement of B LE. Non-ambulatory. PT focus of care is to maximize mobilization of B UE to minimize swelling and maximize use of B UE for ADLs./ DISCHARGE RECOMMENDATIONS: [] Home with no services [] [] Home with services [specify] [] Home with outpatient PT [] [] SNF for continued rehabilitation [] [X] [employer] [facility]. Return to SNF when medically cleared by hospitalist. Benefit from continued PT services to address impairments in range of motion, limb girth, and strength. [] SNF versus LTC based on ability to participate and progress [] TREATMENT CODE/TIME: 41309 x 23 minutes beginning at 12:51 PM.
--- NOTE | 2021-05-26 13:25 | W.PULMCON ---
General Date Of Service Date of service: 05/26/21 Time of Service: 08:15 Reason for Consult: Concern for COVID Pneumonia Assessment and Plan Assessment and plan (1) LLL pneumonia: Status: Acute Assessment and plan: This is a 55 yo female with multiple chronic medical issues including a suprapubic cath and kidney transplant who is admitted for pneumonia and cellulitis. I do not believe she has COVID given Chest imaging appearance and 2 negative tests. She does have a LLL pneumonia that is relatively dense. Since she lives in a rehab facility broad spectrum coverage is appropriate given her immunosuppression. In an immunocompetant patient treating this as CAP would be appropriate. HCAP is no longer an up to date diagnosis and this lead to overuse of broad spectrum antibiotics, so typically should be treated as a CAP. That being said with her immunosuppression I do think broad coverage is appropriate for her. The combination of Zosyn and Vanc is tough on the kidneys and in this transplant patient I recommend changing the Zosyn to cefepime. Her MRSA screen in positive and so we should continue coverage for this. LLL pneumonia - 3 days of vancomycin is sufficient - recommend changing Zosyn to cefepime - on discharge Levaquin would be sufficient to discharge on for a 7 day total course - Acapella and IS - recommend close follow up with her PCP and repeat imaging in 2 months to ensure radiologic resolution of infiltrate Concern for COVID - recommend discontinuing precautions - do not recommend giving remdesivir to patients without a positive COVID test History of Present Illness Narrative: This is a 65 yo female with multiple chronic medical issues and who lives in [facility] and rehab. She has a renal transplant and is on prednisone 5mg, tacrolimus and mycophenilate for this. She is admitted for a cellulitis and was found to have a LLL infiltrate in the setting of a cough. There was concerns about COVID and so despite a negative COVID test she remained on precautions and had a second test completed, again which was negative. On her chest CT she does have a LLL lobar pneumonia with air bronchograms. I have a low suspicion for COVID with this chest xray and 2 negative tests. She was receiving remdesivir given the concern for COVID. On my assessment she is feeling better with the therapies she has been receiving. She is on room air and appears comfortable. She is not someone who gets alot of pneumonias. She still have a cough. No shortness of breath. Review of Systems All systems reviewed & are unremarkable except as noted in HPI and below PFSH All Active Problems (Updated 05/25/21 @ 16:11 by Renée Dumont MD) DVT prophylaxis (Acute) Ground glass opacity present on imaging of lung (Acute) Cellulitis of arm, left (Acute) LLL pneumonia (Acute) Incontinence in female (Acute) Discharge planning issues (Acute) Complicated UTI (urinary tract infection) (Acute) Candice-rectal abscess (Chronic) Ambulatory dysfunction (Chronic) Adrenal insufficiency (Chronic) Hypercoagulable state, primary (Chronic) Hypertension (Chronic) Osteoarthritis of left hip (Chronic) Medical History C5 vertebral fracture Cerebellar lesion Chronic anticoagulation Chronic kidney disease Hyperparathyroidism Lytic bone lesions on xray on CT Neurogenic bladder Osteoporosis Peripheral neuropathy Protein S deficiency Seizure disorder TBI (traumatic brain injury) Surgical History Colonoscopy - MAC (02/11/15) INO MERINO Fistula creation History of kidney transplant S/P kidney transplant Social History Smoking/Tobacco Use Status: Never Smoking risk assessment performed?: Yes Alcohol Intake: never Drug use: Never Substance use type: does not use Do you feel safe at home: Yes Do you feel safe in your relationship?: Yes Additional Social history: Lives at [facility] Visit Medication and Allergies Active Medications Generic Name Dose Route Start Last Admin Trade Name Freq PRN Reason Stop Dose Admin Acetaminophen 500 mg 05/24/21 19:23 05/25/21 00:01 Acetaminophen 325 Mg Tab PO 500 mg Q4H PRN PRN Administration Acidophilus 1 gm 05/25/21 08:30 05/26/21 08:27 Lactobacillus 1 Gram Granules Packet PO 1 gm DAILY VINCE Administration Albuterol Sulfate 2 puff 05/25/21 13:40 Albuterol Hfa 8 Gm 60 Puff Inh IH Q4H PRN PRN Ascorbic Acid 500 mg 05/25/21 20:00 05/26/21 08:30 Ascorbic Acid 500 Mg Tab PO 500 mg BID VINCE Administration Bisacodyl 10 mg 05/24/21 19:25 Bisacodyl 10 Mg Supp ID BID PRN PRN Cholecalciferol 2,000 units 05/26/21 08:30 05/26/21 08:27 Cholecalciferol (Vitamin D3) 1,000 Unit Tab PO 2,000 units DAILY VINCE Administration Device 1 each 05/25/21 14:00 Inhaler, Assist Device MC DIRECTED VINCE Dimethicone/Zinc Oxide 0 gm 05/24/21 19:14 Nii Protect Cream 142 Gm Tube TP PRN PRN Docusate Sodium 100 mg 05/24/21 19:23 Docusate Sodium 100 Mg Cap PO TID PRN PRN Enoxaparin Sodium 40 mg 05/24/21 20:00 05/25/21 21:28 Enoxaparin 40 Mg/0.4 Ml Syr SC 40 mg Q24H VINCE Administration Famotidine 20 mg 05/25/21 20:00 05/26/21 08:27 Famotidine 20 Mg Tab PO 20 mg BID VINCE Administration Hydrocortisone 50 mg 05/25/21 14:00 05/26/21 08:38 Hydrocortisone Sod Suc. 100 Mg Vial IVP 50 mg Q8H VINCE Administration Sodium Chloride 500 mls @ 0 mls/hr 05/24/21 19:14 05/25/21 16:00 Saline 500ml Bag IV 100 mls/hr PRN PRN Administration As Directed Vancomycin/PEG/NADA/Lysine/Water 1 gm in 200 mls @ 133.333 mls/hr 05/25/21 08:00 05/26/21 05:13 Vancocin Injection IVPB 133 mls/hr Q10H VINCE Administration Cefepime HCl 2 gm/ Sodium 100 mls @ 200 mls/hr 05/26/21 10:00 05/26/21 09:48 Chloride IVPB 200 mls/hr Q8H VINCE Administration IV Miscellaneous Supplies 1 each 05/24/21 19:15 Iv Access IV DIRECTED VINCE Levetiracetam 1,500 mg 05/25/21 08:30 05/26/21 08:28 Levetiracetam 500 Mg Tab PO 1,500 mg BID VINCE Administration Magnesium Oxide 400 mg 05/25/21 08:30 05/26/21 08:30 Magnesium Oxide 400 Mg Tab PO 400 mg TID VINCE Administration Mirabegron 50 mg 05/25/21 08:30 05/26/21 08:28 Mirabegron 50 Mg Tabcr PO 50 mg DAILY VINCE Administration Morphine Sulfate 30 mg 05/24/21 22:00 05/25/21 21:28 Morphine C.R. 15 Mg Tabcr PO 30 mg HS VINCE Administration Morphine Sulfate 15 mg 05/25/21 08:30 05/26/21 08:30 Morphine C.R. 15 Mg Tabcr PO 15 mg QAM VINCE Administration Mycophenolate Mofetil 250 mg 05/25/21 12:00 05/26/21 08:28 Mycophenolate Mofetil 500 Mg Tab PO 250 mg BID VINCE Administration Nystatin 0 gm 05/25/21 08:30 05/26/21 08:39 Nystatin Cream 15 Gm Tube TP 1 applic TID VINCE Administration Oxycodone/Acetaminophen 1 tab 05/24/21 19:25 Oxycodone 5 Mg/Acetaminophen 325 Mg Tab PO Q6H PRN Patient's Own 0 each 05/25/21 22:00 05/26/21 00:49 Medication (Acetic IR Not Given Acid 0.25 % Solution [facility] ) Patient's Own 2,000 each 05/26/21 08:30 05/26/21 08:40 Medication (D- PO Not Given Mannose 500 Mg DAILY [facility] Capsule) Polyethylene Glycol 17 gm 05/24/21 19:23 Polyethylene Glycol 3350 17 Gm Packet PO DAILY PRN PRN Constipation Prednisone 5 mg 05/25/21 08:30 05/25/21 08:08 Prednisone 5 Mg Tab PO 5 mg Q48H VINCE Administration Sennosides 2 tab 05/24/21 20:00 05/26/21 08:27 Senna Tab PO 2 tab BID VINCE Administration Sertraline HCl 150 mg 05/25/21 08:30 05/26/21 08:28 Sertraline 50 Mg Tab PO 150 mg DAILY VINCE Administration Silver Sulfadiazine 0 gm 05/24/21 20:00 05/26/21 08:39 Silver Sulfadiazine 1% 25 Gm Tube TP 1 applic BID VINCE Administration Simethicone 120 mg 05/24/21 20:25 Simethicone 80 Mg Chew PO TID PRN PRN Sodium Biphosphate/Sodium Phosphate 118 ml 05/24/21 19:25 Na Phosphate Enema 133 Ml Btl ID DAILY PRN Sodium Chloride 0 ml 05/24/21 19:14 05/26/21 08:26 Normal Saline Flush 10 Ml Syr IVP 10 ml PRN PRN Administration Tacrolimus 1 mg 05/24/21 20:00 05/25/21 20:26 Tacrolimus 0.5 Mg Cap PO 1 mg QPM VINCE Administration Tacrolimus 2 mg 05/25/21 08:30 05/26/21 08:27 Tacrolimus 0.5 Mg Cap PO 2 mg QAM VINCE Administration Venlafaxine HCl 75 mg 05/25/21 08:30 05/26/21 08:29 Venlafaxine 37.5 Mg Capcr PO 75 mg DAILY VINCE Administration Zinc Sulfate 220 mg 05/26/21 08:30 05/26/21 08:29 Zinc Sulfate 220 Mg Tab PO 220 mg DAILY VINCE Administration Allergies codeine Allergy (Severe, Unverified 05/24/21 18:35) divalproex sodium [From Depakote] Allergy (Unverified 05/24/21 18:33) povidone-iodine [From Betadine] Adverse Reaction (Unknown, Unverified 05/24/21 18:34) Skin Rash soap [From Betadine] Adverse Reaction (Unverified 05/24/21 18:33) Skin Rash Exam Const General: no acute distress Nutritional Appearance: well nourished [facility] Head: normocephalic Ears: external ears normal and no periauricular adenopathy General nose exam: nasal mucous membranes and turbinates normal Face and sinus: sinuses nontender Mouth: oropharynx normal and moist mucous membranes Teeth and gingiva: dentition normal Eyes General: appearance normal, both eyes and all related structures Pupils: PERRL Neck Neck: normal visual inspection and no lymphadenopathy Chest Chest: normal inspection of the chest Resp Effort & Inspection: normal respiratory effort Auscultation: diminished lung sounds, rales, no rhonchi and no wheezes Cardio Rate: regular rate Rhythm: regular rhythm Heart Sounds: S1 normal, S2 normal and no murmurs Pulses: radial pulses present bilaterally GI Inspection: normal to inspection Palpation: soft Skin General skin exam: no rashes or lesions noted Neuro General: patient alert, patient awake and patient oriented x3 Extrem General: calf tenderness, no clubbing, no cyanosis and edema Psych Mental Status: mental status grossly normal Affect: normal affect Attitude: cooperative Results Last Vital Signs Temp 36.3 C L 05/26/21 11:46 Pulse 73 05/26/21 11:46 Resp 21 05/26/21 11:46 BP 154/79 H 05/26/21 11:46 Pulse Ox 95 05/26/21 11:46 Labs Result diagrams: 05/26/21 06:45 05/26/21 06:45 Labs: Laboratory Results - last 24 hr 05/26/21 05/26/21 05/26/21 06:45 06:45 06:45 WBC 6.62 D RBC 3.37 L Hgb 8.5 L Hct 28.0 L MCV 83.1 MCH 25.2 L MCHC 30.4 L RDW 15.2 H Plt Count 388 MPV 9.0 Immature Gran % 0.8 Neutrophils % 66.7 Lymphocytes % 24.8 Monocytes % 7.4 Eosinophils % 0.0 Basophils % 0.3 Nucleated RBC % 0 Absolute Neutrophils 4.42 Absolute Lymphocytes 1.64 Absolute Monocytes 0.49 Absolute Eosinophils 0.00 Absolute Basophils 0.02 Sodium 140 Potassium 3.2 L D Chloride 103 Carbon Dioxide 25.3 Anion Gap 11.7 H BUN 17 Creatinine 0.6 Estimated GFR/1.73 m2 >= 60.00 Glucose 109 H Calcium 8.0 L Magnesium 2.2 COVID-19 Source SARS-CoV-2 (PCR) Influenza Type A (PCR) Influenza Type B (PCR) RSV (PCR) Add-On Test Request DONE 05/26/21 08:20 WBC RBC Hgb Hct MCV MCH MCHC RDW Plt Count MPV Immature Gran % Neutrophils % Lymphocytes % Monocytes % Eosinophils % Basophils % Nucleated RBC % Absolute Neutrophils Absolute Lymphocytes Absolute Monocytes Absolute Eosinophils Absolute Basophils Sodium Potassium Chloride Carbon Dioxide Anion Gap BUN Creatinine Estimated GFR/1.73 m2 Glucose Calcium Magnesium COVID-19 Source Nasopharynx SARS-CoV-2 (PCR) Negative Influenza Type A (PCR) Negative Influenza Type B (PCR) Negative RSV (PCR) Negative Add-On Test Request
[2021-05-26 13:43] LABS: Vancomycin, Trough 24.9 ug/mL (10.0-20.0)
--- NOTE | 2021-05-26 15:10 | W.PM.PROGNOT ---
Date of Service Date of service: 05/26/21 Time of Service: 15:11 Assessment and Plan Assessment and plan (1) Cellulitis of arm, left: Status: Acute Assessment and plan: Continue vancomycin. Change zosyn to cefepime to avoid YESSI. Blood cultures negative. Awaiting vascular call back to discuss findings of thrombosed AV fistula - normal finding or not. (2) LLL pneumonia: Status: Acute Assessment and plan: As above (3) Adrenal insufficiency: Status: Chronic Assessment and plan: She has a history of adrenal insufficiency. Continue to taper stress dose steroids. (4) Ground glass opacity present on imaging of lung: Status: Acute Assessment and plan: COVID-19 PCR is negative x 2. Discussed with Dr Fung, who feels that this is unlikely to be COVID-19 pneumonia. D/c remdesivir/vitamins. D/c precautions. (5) S/P kidney transplant: Assessment and plan: Continue immunosuppressants Check prograf level. (6) Dehydration: Status: Resolved (7) Discharge planning issues: Status: Acute Assessment and plan: DNR/DNI Palliative care consult. (8) DVT prophylaxis: Status: Acute Assessment and plan: SC enoxaparin Discussed with Dr Fung. Subjective Subjective Interval history since last seen: Ms Farah continues to feel a little raspy. LUE hurts. Still a little short of breath. Denies dizziness, chest pain, nausea. Exam Narrative Exam Narrative: General: Pleasant anxious middle-aged female who is doing word puzzles, A&Ox3 HEENT: EOMI, MMM Heart: RRR, +AI Lungs: Diminished breath sounds B Abdomen: soft, distended, nontender Extremities: 2+ BLE edema; LUE in a compression sleeve; underneath painful area in the forearm Objective Last Vital Signs Temp 36.3 C L 05/26/21 11:46 Pulse 73 05/26/21 11:46 Resp 21 05/26/21 11:46 BP 154/79 H 05/26/21 11:46 Pulse Ox 95 05/26/21 11:46 Laboratory Results - last 24 hr 05/26/21 05/26/21 05/26/21 06:45 06:45 06:45 WBC 6.62 D RBC 3.37 L Hgb 8.5 L Hct 28.0 L MCV 83.1 MCH 25.2 L MCHC 30.4 L RDW 15.2 H Plt Count 388 MPV 9.0 Immature Gran % 0.8 Neutrophils % 66.7 Lymphocytes % 24.8 Monocytes % 7.4 Eosinophils % 0.0 Basophils % 0.3 Nucleated RBC % 0 Absolute Neutrophils 4.42 Absolute Lymphocytes 1.64 Absolute Monocytes 0.49 Absolute Eosinophils 0.00 Absolute Basophils 0.02 Sodium 140 Potassium 3.2 L D Chloride 103 Carbon Dioxide 25.3 Anion Gap 11.7 H BUN 17 Creatinine 0.6 Estimated GFR/1.73 m2 >= 60.00 Glucose 109 H Calcium 8.0 L Magnesium 2.2 Vancomycin Trough COVID-19 Source SARS-CoV-2 (PCR) Influenza Type A (PCR) Influenza Type B (PCR) RSV (PCR) Add-On Test Request DONE 05/26/21 05/26/21 08:20 13:05 WBC RBC Hgb Hct MCV MCH MCHC RDW Plt Count MPV Immature Gran % Neutrophils % Lymphocytes % Monocytes % Eosinophils % Basophils % Nucleated RBC % Absolute Neutrophils Absolute Lymphocytes Absolute Monocytes Absolute Eosinophils Absolute Basophils Sodium Potassium Chloride Carbon Dioxide Anion Gap BUN Creatinine Estimated GFR/1.73 m2 Glucose Calcium Magnesium Vancomycin Trough 24.9 H* COVID-19 Source Nasopharynx SARS-CoV-2 (PCR) Negative Influenza Type A (PCR) Negative Influenza Type B (PCR) Negative RSV (PCR) Negative Add-On Test Request
[2021-05-26 16:03] VITALS: BP 176/94; PULSE 79; RESP 20; TEMP 36.4; O2SAT 97
[2021-05-26] MEDS: Hydrocortisone SOD SUC. 100 MG VIAL 25 MG IVP (16:35)
[2021-05-26] MEDS: Normal Saline 500 ML 30 ML IV (16:37)
--- NOTE | 2021-05-26 17:13 | WOUNDCONS_ITS ---
- If Service Date Differs Date of service: 05/26/21 Time of Service: 16:30 Wound Initial Evaluation Narrative: Patient is a pleasant 55 yof, who has a complicated medical hx. She recently had a fistula removed from her left arm, and was here with cellulitis and possible thrombosis in that arm. On admission the patient who has had a calvni- rectal abscess in the sacral area, was noted to have a discharge coming from the area. the admitting nurse felt the area had started to tunnel. Goals of wound consult are discussed with the patient and her sister. Patient agrees to the c onsult and ask her sister to sign the consent for her. H&P, allergies, labs and other pertinent information were reviewed prior to the consult. - Wound Lumbar/Sacral Wound Type: Pressure Ulcer, Full Thickness, Other (abcess) Pressure Ulcer Stage: III Wound General Appearance: Reddened, Draining, Bleeding, Unapproximated, Other (small pressure area to the left of the abcess, abcess has undermining) Wound Bed Greatest Portion: Red (Granulation) Wound Surrounding Tissue Appearance: [place] Percent of Wound Bed Granulated/Red: 100 Percent of Wound Bed Slough/Yellow: 0 Percent of Wound Bed Eschar/Black: 0 Wound Length: 1.2 cm Wound Width: 0.5 cm Wound Depth: 1.2 cm Wound Drainage Amount: Large Wound Drainage Odor: Foul Odor Wound Drainage Description: Bloody Wound Topical Solution/Irrigant: Saline Irrigant Wound Debridement Method: Gauze Wound Debridement Result: Other (wound continues to drain bloody brown exudate after cleaning, cannot see the base of the wound) Wound Debridement Amount of Tissue Removed: Minimal - Circulation, Sensation, Motion Sensation Description: Within Normal Limits Skin Temperature: Warm Skin Color: Normal - IMANI Comment:: NA - Pain Pain Level: 0 Draining abcess with small pressure area adjacent to it. Patient is encouraged to offload pressure as she is able to help facilitate healing. Patient and her sister both understand this. Pillow is propped under patients left side when we are finished and she is made comfortable. - Photo Photo: - Treatment/Dressing Change Cleanse With: Cleanser with Surfactant Dressing Types: Aquacell Ag, Mepilex w/Border - Recomendation Recomendation:: Cleanse area with Equos wound mandrel cleaner and gauze, then pat dry. Loosely pack wound with Aquacell AG. Leave a small tail out side the abcess. Cover with Mepilex Border. Change daily or PRN. Physcian/Nurse Practioner Notified: Yes () Treatment Time - Time Total Time Spent with Patient: 45 minutes - Patient Will be Seen Weekly Treatment: daily - For: For:: 1 week
[2021-05-26 19:53] VITALS: BP 151/78; PULSE 79; RESP 22; TEMP 36.5; O2SAT 98
[2021-05-26] MEDS: Enoxaparin 40 MG/0.4 ML SYR SC (21:21)
[2021-05-26] MEDS: Tacrolimus 0.5 MG CAP 1 MG PO (21:22)
[2021-05-26 23:08] VITALS: BP 150/75; PULSE 79; RESP 22; TEMP 36.7; O2SAT 98
[2021-05-27] MEDS: CEFEPIME 2 GM in Normal Saline 100 ML IVPB ×3 (01:07→18:02)
[2021-05-27] MEDS: Hydrocortisone SOD SUC. 100 MG VIAL 25 MG IVP ×3 (01:09→16:47)
[2021-05-27] MEDS: Normal Saline Flush 10 ML SYR IVP ×4 (01:10→16:46)
[2021-05-27 03:20] VITALS: BP 163/70; PULSE 72; RESP 22; TEMP 37.4; O2SAT 96
[2021-05-27] MEDS: VANCOMYCIN/WATER (PEG) 1 GM/200 ML BAG IVPB ×2 (04:51→16:47)
[2021-05-27 07:18] LABS: Abs Immature Grans 0.07 10^3/uL (0.0-0.06); Absolute Basophil Count 0.02 10^3/uL (0.0-0.2); Absolute Eosinophil Count 0.01 10^3/uL (0.0-0.7); Absolute Lymphocyte Count 1.47 10^3/uL (1.2-3.4); Absolute Monocyte Count 0.44 10^3/uL (0.1-0.8); Absolute Neutrophil Count 5.24 10^3/uL (1.2-6.7); Basophils % 0.3; Eosinophils % 0.1; HCT 28.5 % (36.0-46.0); HGB 8.7 g/dL (11.2-15.7); Lymphocytes % 20.3; MCH 24.9 pg (27.0-33.0); MCHC 30.5 % (32.0-36.0); MCV 81.7 fL (80-95); MPV 9.1 fL (8.0-11.0); Monocytes % 6.1; Neutrophils % 72.2; Nucleated RBC 0 %; Platelet Count 417 10^3/uL (130-400); RBC 3.49 10^6/uL (3.93-5.22); RDW 15.3 % (11.7-14.6); WBC 7.25 10^3/uL (4.4-10.8)
[2021-05-27 07:39] LABS: INR 1.1 (0.9-1.1); Prothrombin Time 10.6 sec (9.3-11.0)
[2021-05-27 07:45] LABS: ALT 14 U/L (14-59); AST 14 U/L (15-37); Albumin 2.4 g/dL (3.4-5.0); Alkaline Phosphatase 87 U/L (46-116); Anion Gap 9.1 mmol/L (3-11); BUN 12 mg/dL (7-18); Bilirubin, Direct 0.1 mg/dL (0.0-0.2); Bilirubin, Total 0.2 mg/dL (0.2-1.0); C-Reactive Protein 5.32 mg/dL (0.0-0.3); CO2 24.9 mmol/L (21.0-32.0); CREATININE 0.6 mg/dL (0.55-1.02); Calcium 8.1 mg/dL (8.5-10.1); Chloride 106 mmol/L (98-107); Glucose 107 mg/dL (74-106); Magnesium 1.9 mg/dL (1.8-2.4); Potassium 3.7 mmol/L (3.5-5.1); Sodium 140 mmol/L (136-145); Total Protein 6.9 g/dL (6.4-8.2)
[2021-05-27] MEDS: Zinc Sulfate 220 MG TAB PO (07:56)
[2021-05-27] MEDS: Tacrolimus 0.5 MG CAP 2 MG PO (07:56)
[2021-05-27] MEDS: Sertraline 50 MG TAB 150 MG PO (07:57)
[2021-05-27] MEDS: Mirabegron 50 MG TABCR PO (07:57)
[2021-05-27] MEDS: Famotidine 20 MG TAB PO ×2 (07:57→20:06)
[2021-05-27] MEDS: Senna TAB 2 TAB PO ×2 (07:57→20:03)
[2021-05-27] MEDS: Cholecalciferol (Vitamin D3) 1,000 UNIT TAB 2000 UNITS PO (07:57)
[2021-05-27] MEDS: predniSONE 5 MG TAB PO ×2 (07:57→20:04)
[2021-05-27] MEDS: Magnesium Oxide 400 MG TAB PO ×3 (07:58→20:06)
[2021-05-27] MEDS: Venlafaxine 37.5 MG CAPCR 75 MG PO (07:58)
[2021-05-27 08:10] LABS: D-Dimer 1381 ng/mlFEU (<500); Ferritin 121 ng/mL (8-252)
[2021-05-27 08:16] VITALS: BP 162/78; PULSE 71; RESP 20; TEMP 37.3; O2SAT 93
[2021-05-27] MEDS: Nystatin CREAM 15 GM TUBE TP ×3 (10:13→20:08)
[2021-05-27] MEDS: Silver sulfaDIAZINE 1% 25 GM TUBE TP ×2 (10:13→20:07)
[2021-05-27] MEDS: levETIRAcetam 500 MG TAB 1500 MG PO ×2 (10:36→20:04)
--- NOTE | 2021-05-27 11:23 | PT.INNT ---
PT Notes Visit Reasons: Pneumonia, Cellulitis pleasantly declined PT today, stating that she did not feel well.
[2021-05-27 11:54] LABS: Tacrolimus <2.0 ng/mL (See Note)
[2021-05-27 14:28] LABS: Vancomycin, Random 23.4 ug/mL
[2021-05-27 14:32] VITALS: BP 155/72; PULSE 73; RESP 18; TEMP 36.9; O2SAT 97
[2021-05-27 14:35] LABS: Lab Add On Test DONE
--- NOTE | 2021-05-27 14:41 | PGE_ITS ---
Date of Service Date of service: 05/27/21 Time of Service: 14:41 Assessment and Plan Assessment and plan (1) LLL pneumonia: Status: Acute Assessment and plan: Continue cefepime and vancomycin for 5 to 7 days and monitor oxygen status as well as her inflammatory markers. I will order Vibra- pep as well as incentive spirometer. Check nocturnal pulse oximetry Qualifiers: Pneumonia type: due to unspecified organism Qualified Code(s): J18.9 - Pneumonia, unspecified organism (2) Cellulitis of arm, left: Status: Acute Assessment and plan: Not convinced that this was truly a cellulitis of her left arm versus thrombophlebitis secondary to recent thrombosed AV fistula. Nevertheless she remains on antibiotics for both her UTI and pneumonia and given her MRSA status being positive we will continue the vancomycin and treat her empirically for 5 to 7 days. We will continue to monitor edema in her left arm. Continue to monitor inflammatory markers. (3) Complicated UTI (urinary tract infection): Status: Acute Assessment and plan: Urine culture growing Proteus mirabilis blood culture showed no growth. Her urine culture is resistant to most antibiotics with the exception of ceftazidime, cefazolin and ceftriaxone and Zosyn. Patient is curr ently on cefepime which should cover her current infection unless this becomes an ESBL organism. (4) Adrenal insufficiency: Status: Chronic Assessment and plan: She has a history of adrenal insufficiency. Continue to taper stress dose steroids. Currently on hydrocortisone 25 mg IV every 8 hours. After today she can go back down to her prednisone and continue to wean of prednisone 5 mg every other day (5) Ground glass opacity present on imaging of lung: Status: Acute Assessment and plan: COVID-19 PCR is negative x 2. Discussed with Dr Fung, who feels that this is unlikely to be COVID-19 pneumonia. D/c remdesivir/vitamins. D/c precautions. (6) S/P kidney transplant: Assessment and plan: Continue immunosuppressants Check prograf level. (7) Discharge planning issues: Status: Acute Assessment and plan: DNR/DNI Palliative care consult. (8) DVT prophylaxis: Status: Acute Assessment and plan: SC enoxaparin Subjective Subjective Interval history since last seen: Patient denies any acute complaints. She did request oxygen at night which I explained to her that if her oxygen level is adequate on room air there is no reason for nocturnal oxygen however we will check an overnight pulse oximetry to see if she desaturates. As for her pneumonia she has minimal cough and not able to produce any sputum. She is currently on cefepime and vancomycin. Her MRSA screen was positive. Multiple SARS-CoV-2 PCR tests have been negative. Her suprapubic catheter has been changed and her urine is looking clear now. Exam Narrative Exam Narrative: Middle-aged white female sitting up in the bed in semifowler position working on crossword puzzles. Will she verbally engage with me in conversation she did not even once look at me from her crossword puzzle. She asked me how long she will be here in the hospital. I explained to her that we need to ensure that any residual infection has been cleared up. Left arm is no longer erythematous although there is still some residual edema. She has a compression stocking over her left arm. Surgical site over her left AV graft ligation site appears clean without discharge Lungs are clear on the right and on the left she has diminished breath sounds at the left lung base. Heart is regular with a loud grade 4/6 holosystolic murmur over the apex and radiating into the left mid axillary line Abdomen soft nondistended nontender Suprapubic catheter is draining clear yellow urine Lower extremities with trace of edema she has deformity of both feet and ankles Objective Last Vital Signs Temp 36.9 C 05/27/21 14:32 Pulse 73 05/27/21 14:32 Resp 18 05/27/21 14:32 BP 155/72 H 05/27/21 14:32 Pulse Ox 97 05/27/21 14:32 Laboratory Results - last 24 hr 05/26/21 05/27/21 05/27/21 06:45 06:35 06:35 WBC 7.25 RBC 3.49 L Hgb 8.7 L Hct 28.5 L MCV 81.7 MCH 24.9 L MCHC 30.5 L RDW 15.3 H Plt Count 417 H MPV 9.1 Immature Gran % 1.0 Neutrophils % 72.2 Lymphocytes % 20.3 Monocytes % 6.1 Eosinophils % 0.1 Basophils % 0.3 Nucleated RBC % 0 Absolute Neutrophils 5.24 Absolute Lymphocytes 1.47 Absolute Monocytes 0.44 Absolute Eosinophils 0.01 Absolute Basophils 0.02 PT INR D-Dimer Sodium 140 Potassium 3.7 Chloride 106 Carbon Dioxide 24.9 Anion Gap 9.1 BUN 12 Creatinine 0.6 Estimated GFR/1.73 m2 >= 60.00 Glucose 107 H Calcium 8.1 L Magnesium 1.9 Ferritin 121 Total Bilirubin 0.2 Conjugated Bilirubin 0.1 AST 14 L ALT 14 Alkaline Phosphatase 87 C-Reactive Protein 5.32 H Total Protein 6.9 Albumin 2.4 L Random Vancomycin Tacrolimus <2.0 Add-On Test Request 05/27/21 05/27/21 05/27/21 06:35 14:10 Unknown WBC RBC Hgb Hct MCV MCH MCHC RDW Plt Count MPV Immature Gran % Neutrophils % Lymphocytes % Monocytes % Eosinophils % Basophils % Nucleated RBC % Absolute Neutrophils Absolute Lymphocytes Absolute Monocytes Absolute Eosinophils Absolute Basophils PT 10.6 INR 1.1 D-Dimer 1381 H Sodium Potassium Chloride Carbon Dioxide Anion Gap BUN Creatinine Estimated GFR/1.73 m2 Glucose Calcium Magnesium Ferritin Total Bilirubin Conjugated Bilirubin AST ALT Alkaline Phosphatase C-Reactive Protein Total Protein Albumin Random Vancomycin 23.4 Tacrolimus Add-On Test Request DONE
[2021-05-27 15:05] LABS: Procalcitonin < 0.1 ng/mL
[2021-05-27 16:17] VITALS: BP 164/76; PULSE 64; RESP 16; TEMP 36.6; O2SAT 96
[2021-05-27] MEDS: Acetaminophen 500 MG TAB PO (16:48)
[2021-05-27] MEDS: Tacrolimus 0.5 MG CAP 1 MG PO (20:02)
[2021-05-27] MEDS: Enoxaparin 40 MG/0.4 ML SYR SC (20:06)
[2021-05-27 22:31] VITALS: BP 177/72; PULSE 63; RESP 20; TEMP 37.1; O2SAT 96
[2021-05-28] MEDS: Hydrocortisone SOD SUC. 100 MG VIAL 25 MG IVP ×2 (00:56→08:47)
[2021-05-28] MEDS: CEFEPIME 2 GM in Normal Saline 100 ML IVPB ×3 (00:57→18:27)
[2021-05-28] MEDS: VANCOMYCIN/WATER (PEG) 1 GM/200 ML BAG IVPB ×2 (04:46→16:22)
[2021-05-28] MEDS: Normal Saline Flush 10 ML SYR IVP ×4 (04:50→19:54)
[2021-05-28 06:29] VITALS: BP 159/74; PULSE 63; RESP 18; TEMP 37.7; O2SAT 96
[2021-05-28] MEDS: Famotidine 20 MG TAB PO ×2 (08:48→19:51)
[2021-05-28] MEDS: Mirabegron 50 MG TABCR PO (08:48)
[2021-05-28] MEDS: levETIRAcetam 500 MG TAB 1500 MG PO ×2 (08:48→19:51)
[2021-05-28] MEDS: Cholecalciferol (Vitamin D3) 1,000 UNIT TAB 2000 UNITS PO (08:49)
[2021-05-28] MEDS: Zinc Sulfate 220 MG TAB PO (08:49)
[2021-05-28] MEDS: Magnesium Oxide 400 MG TAB PO ×3 (08:50→19:53)
[2021-05-28] MEDS: Senna TAB 2 TAB PO ×2 (08:50→19:52)
[2021-05-28] MEDS: predniSONE 5 MG TAB PO ×2 (08:51→19:51)
[2021-05-28] MEDS: Sertraline 50 MG TAB 150 MG PO (08:51)
[2021-05-28] MEDS: Tacrolimus 0.5 MG CAP 2 MG PO (08:52)
[2021-05-28] MEDS: Venlafaxine 37.5 MG CAPCR 75 MG PO (08:52)
[2021-05-28] MEDS: Silver sulfaDIAZINE 1% 25 GM TUBE TP ×2 (08:57→20:08)
[2021-05-28] MEDS: Nystatin CREAM 15 GM TUBE TP ×3 (08:58→20:07)
--- NOTE | 2021-05-28 13:09 | PGE_ITS ---
Date of Service Date of service: 05/28/21 Time of Service: 13:09 Assessment and Plan Assessment and plan (1) LLL pneumonia: Status: Acute Assessment and plan: Continue cefepime and vancomycin for 5 to 7 days and monitor oxygen status as well as her inflammatory markers. I will order Vibra- pep as well as incentive spirometer. continuous pulse oximetry applied last night and she did not have any desaturations per nursing. I will continue the Vancomycin through tomorrow (which will be day #7 vancomycin) and continue cefepime through tomorrow. Recheck her CXR before return to [facility]. Qualifiers: Pneumonia type: due to unspecified organism Qualified Code(s): J18.9 - Pneumonia, unspecified organism (2) Cellulitis of arm, left: Status: Acute Assessment and plan: Not convinced that this was truly a cellulitis of her left arm versus thrombophlebitis secondary to recent thrombosed AV fistula. Nevertheless she remains on antibiotics for both her UTI and pneumonia and given her MRSA status being positive we will continue the vancomycin and treat her empirically for 5 to 7 days. We will continue to monitor edema in her left arm. Continue to monitor inflammatory markers. Patient will need (3) Complicated UTI (urinary tract infection): Status: Acute Assessment and plan: Urine culture growing Proteus mirabilis blood culture showed no growth. Her urine culture is resistant to most antibiotics with the exception of ceftazidime, cefazolin and ceftriaxone and Zosyn. Patient is currently on cefepime which should cover her current infection unless this becomes an ESBL organism. (4) Suprapubic catheter dysfunction: Status: Acute Assessment and plan: patient had her SPC changed on admission and reportedly a larger catheter was placed. In light of the leaking around the stoma, I have asked nursing to check patency of the catheter, scan her bladder to be sure that it is completely emptying and to try to add additional 5 mL to the balloon (has 10 mL in it now) to see if this seals the leak, otherwise I will ask Dr. Berman to evaluate in the a.m. Qualifiers: Encounter type: initial encounter Qualified Code(s): T83.010A - Breakdown (mechanical) of cystostomy catheter, initial encounter (5) Adrenal insufficiency: Status: Chronic Assessment and plan: She has a history of adrenal insufficiency. Continue to taper stress dose steroids. dc hydrocortisone and resume prednisone 5 mg every other day (6) Ground glass opacity present on imaging of lung: Status: Acute Assessment and plan: COVID-19 PCR is negative x 2. Case was discussed by Dr. Dumont w/ Dr. Fung (pulmonary) who feels that the ground glass changes are not from Covid. (7) S/P kidney transplant: Assessment and plan: Continue immunosuppressants Check prograf level. (8) Discharge planning issues: Status: Acute Assessment and plan: DNR/DNI Palliative care consult.\ Transfer back to [facility] once antibiotics are completed. Probably looking at dc on Saturday as she will have completed full course of antibiotics after Saturday. (9) DVT prophylaxis: Status: Acute Assessment and plan: SC enoxaparin Subjective Subjective Interval history since last seen: Patient states that she has had trouble breathing through her nose d/t congestion. She has moist cough and she is very emotionally labile today. Crying while nursing is cleaning her buttocks and doing her perineal care. She has remained afebrile and has not required supplemental oxygen despite having pneumonia. She remains on Vancomycin and Cefepime for HCAP (she is from [facility]). Her MRSA screen is positive. Her blood cultures are no growth to date. No sputum culture has been obtained. Urine culture is positive for Proteus mirabilis (resistant ampicillin, cipro, TMP/SMX, and to nitrofurantoin but sensitive to cephalosporins). Today is d#3 cefepime and d#5 vancomycin; she was initially treated w/ Zosyn and Vancomycin. With regard to her left arm thrombophlebitis, she still has swelling but this is improving and the redness is better. Exam Narrative Exam Narrative: Obese, white female lying in bed on her side while nursing is cl eaning her up. SPC has been leaking around her ostomy. Alert, crying Lungs: clear on the right but decr. breath sounds w/ rales on the left. Heart: RRR Abdomen: obese, distended, colostomy w/ dark brown stool; suprapubic catheter appears to be in place with the skin around the opening wet from urine; kidd w/ clear yellow urine (nursing reports just emptying the kidd bag for 350 mL even in setting of drainage around catheter Left arm w/ edema but surgical wound is intact w/out discharge; erythema is improved Objective Last Vital Signs Temp 37.7 C H 05/28/21 06:29 Pulse 63 05/28/21 06:29 Resp 18 05/28/21 06:29 BP 159/74 H 05/28/21 06:29 Pulse Ox 96 05/28/21 06:29 Laboratory Results - last 24 hr 05/27/21 05/27/21 05/27/21 14:10 14:10 Unknown Procalcitonin < 0.1 Random Vancomycin 23.4 Add-On Test Request DONE
--- NOTE | 2021-05-28 13:46 | PT.INTREAT ---
PT Notes Visit Reasons: Pneumonia, Cellulitis Inpatient Physical Therapy Treatment Note [facility] Date: 05/28/21 SUBJECTIVE: Darlene crying as I entered room this am reporting increased pain due to swelling in arm. She reports compliancy with her HEP. OBJECTIVE: [] PAIN: 8/10 in arm THEREX:AROM of U/LE. See flowsheet for details. ASSESSMENT: tolerated session well. Reported feeling a little better in regards to pain after her ex. Nurse came in and offered heat pack as she already had pain med. PLAN: will continue to work on her ROM to tolerance. TREATMENT CODE/TIME: 15 min. [id number].
[2021-05-28 15:32] VITALS: BP 153/69; PULSE 75; RESP 21; TEMP 37.4; O2SAT 97
[2021-05-28] MEDS: Acetaminophen 500 MG TAB PO (18:26)
[2021-05-28 19:49] VITALS: BP 160/73; PULSE 73; RESP 19; TEMP 36.9; O2SAT 97
[2021-05-28] MEDS: Ferrous Sulfate 325 MG TAB PO (19:53)
[2021-05-28] MEDS: Tacrolimus 0.5 MG CAP 1 MG PO (19:53)
[2021-05-28] MEDS: oxyCODONE 5 mg/Acetaminophen 325 mg TAB 1 TAB PO (19:53)
[2021-05-28] MEDS: Enoxaparin 40 MG/0.4 ML SYR SC (19:53)
--- NOTE | 2021-05-29 | DI.US_ITS ---
Exam(s) US UPPER EXTREMITY VENOUS LT EXAM: US UPPER EXTREMITY VENOUS LT CLINICAL HISTORY: left arm swelling; r/o DVT; s/p lig. AV fistula. TECHNIQUE: Ultrasound examination of the left upper extremity venous system(s) is performed using gr ayscale, color-flow, and spectral Doppler analysis. COMPARISON: CT CT UPPER EXTREMITY LT W from 05/24/2021 FINDINGS: A stent is seen in the distal subclavian. There is thrombus, 1 cm in length just proximal to the carlin nt. The left internal jugular, axillary, cephalic, basilic, brachial veins are patent without evide nce of thrombosis. The patient has had a previous av fistula which shows echogenic material. IMPRESSION: Thrombus in the distal subclavian just proximal to the stent. Remaining vessels are patent. Thrombo sed AV fistula. DATA REPOSITORY:
[2021-05-29] MEDS: Normal Saline Flush 10 ML SYR IVP ×3 (02:26→19:50)
[2021-05-29] MEDS: CEFEPIME 2 GM in Normal Saline 100 ML IVPB ×3 (02:26→18:17)
[2021-05-29] MEDS: VANCOMYCIN/WATER (PEG) 1 GM/200 ML BAG IVPB ×2 (04:32→19:18)
[2021-05-29 04:35] VITALS: BP 149/77; PULSE 68; RESP 21; TEMP 36.2; O2SAT 98
[2021-05-29] MEDS: Ferrous Sulfate 325 MG TAB PO ×2 (06:41→19:27)
[2021-05-29 07:14] LABS: Abs Immature Grans 0.14 10^3/uL (0.0-0.06); Absolute Basophil Count 0.04 10^3/uL (0.0-0.2); Absolute Eosinophil Count 0.07 10^3/uL (0.0-0.7); Absolute Lymphocyte Count 2.02 10^3/uL (1.2-3.4); Absolute Neutrophil Count 3.63 10^3/uL (1.2-6.7); Basophils % 0.6; Eosinophils % 1.1; HCT 30.5 % (36.0-46.0); HGB 9.4 g/dL (11.2-15.7); Immature Grans % 2.1; Lymphocytes % 30.6; MCH 25.3 pg (27.0-33.0); MCHC 30.8 % (32.0-36.0); MCV 82.2 fL (80-95); MPV 9.2 fL (8.0-11.0); Monocytes % 10.6; Nucleated RBC 0 %; Platelet Count 461 10^3/uL (130-400); RBC 3.71 10^6/uL (3.93-5.22); RDW 15.4 % (11.7-14.6); RDW-SD 45.8 fL
[2021-05-29 07:26] LABS: Anion Gap 11.4 mmol/L (3-11); BUN 9 mg/dL (7-18); CO2 24.6 mmol/L (21.0-32.0); CREATININE 0.6 mg/dL (0.55-1.02); Calcium 8.2 mg/dL (8.5-10.1); Chloride 104 mmol/L (98-107); Glucose 101 mg/dL (74-106); Potassium 3.7 mmol/L (3.5-5.1); Sodium 140 mmol/L (136-145)
[2021-05-29 08:00] VITALS: BP 169/87; PULSE 68; RESP 18; TEMP 37.1; O2SAT 97
[2021-05-29 08:13] LABS: Iron 28 ug/dL (50-170); Total Iron Binding Capacity 188 ug/dL (250-450); Transferrin Sat 15 % (15-50)
--- NOTE | 2021-05-29 08:38 | W.PALLCONSUL ---
Date of service: 05/29/21 Time of Service: 08:39 History of Present Illness History of Present Illness Chief Complaint: left arm pain Narrative: Stacy is known to me from years ago when I saw her both at her skilled nursing and in the hospital. She has a history of renal failure with kidney transplant, ambulatory dysfunction, adrenal insufficiency [facility] the last 3 [facility]. She was feeling poorly with more arm pain abdominal pain. She was evaluated in the ER and because of an elevated white count and arm pain admitted for probable cellulitis and left lower lobe pneumonia. I am seeing her today with the expectation that she will be transferred back to [facility] soon. Stacy states that her left arm hurts her. She has more pain than what she had. It is difficult for her to concentrate on anything else because of the pain. Consults Consult date: 05/29/21 Requesting physician: Renée Dumont Assessment and Plan Assessment and plan (1) Deep vein thrombophlebitis of arm: Status: Suspected Assessment and plan: I did alert nursing to her pain in her left arm. I am not certain what it looked like previously but today it was tender red and painful. Prior to completion of my note, she did have an ultrasound which showed a DVT. Plans are for her to go to [facility] to have this assessed (2) Ground glass opacity present on imaging of lung: Status: Acute Assessment and plan: She is on Vanco and cefepime for her possible pneumonia as well as her cellulitis (3) Cellulitis of arm, left: Status: Acute (4) LLL pneumonia: Status: Acute Qualifiers: Pneumonia type: due to unspecified organism Qualified Code(s): J18.9 - Pneumonia, unspecified organism (5) Complicated UTI (urinary tract infection): Status: Acute (6) Ambulatory dysfunction: Status: Chronic Assessment and plan: She presently is bedbound. (7) Palliative care patient: Status: Acute Assessment and plan: It was good to see Stacy. I have seen her occasionally at [facility] when I was there to see other people. She still has her wonderful smile. At this point because of her left arm pain she will be transported to [facility] due to her DVT. She is presently going to be started on Lovenox and continued on antibiotics. She will need pain medication. She does have long-acting morphine and has had some short acting IV morphine as well as oxycodone. For her depression she is continuing on her Effexor and sertraline. Again today I felt like her mood was good despite the left arm pain and not feeling well Thank you very much for this consult. Hopefully she will be able to get down to [facility] soon Review of Systems Narrative: Left arm pain. No shortness of breath. No chest pain. She is unaware of any abdominal pain at this time and feeling better. PFSH All Active Problems (Updated 05/29/21 @ 18:02 by Janet Chamorro MD, [place]) Palliative care patient (Acute) Suprapubic catheter dysfunction (Acute) DVT prophylaxis (Acute) Ground glass opacity present on imaging of lung (Acute) Cellulitis of arm, left (Acute) LLL pneumonia (Acute) Incontinence in female (Acute) Discharge planning issues (Acute) Complicated UTI (urinary tract infection) (Acute) Candice-rectal abscess (Chronic) Ambulatory dysfunction (Chronic) Adrenal insufficiency (Chronic) Hypercoagulable state, primary (Chronic) Hypertension (Chronic) Osteoarthritis of left hip (Chronic) Medical History C5 vertebral fracture Cerebellar lesion Chronic anticoagulation Chronic kidney disease Hyperparathyroidism Lytic bone lesions on xray on CT Neurogenic bladder Osteoporosis Peripheral neuropathy Protein S deficiency Seizure disorder TBI (traumatic brain injury) Surgical History Colonoscopy - MAC (02/11/15) INO MERINO Fistula creation History of kidney transplant S/P kidney transplant Social History Smoking/Tobacco Use Status: Never Smoking risk assessment performed?: Yes Alcohol Intake: never Drug use: Never Substance use type: does not use Do you feel safe at home: Yes Do you feel safe in your relationship?: Yes Additional Social history: Lives at [facility] Exam Narrative Exam Narrative: Stacy is lying in her bed. She remembers who I am and is able to say my name without prompting. Resp Effort & Inspection: normal respiratory effort and able to speak in complete sentences Auscultation: clear to auscultation bilaterally and diminished lung sounds Cardio Rate: regular rate Extrem General: other (Left antecubital hematoma, redness, tenderness. See picture) Results Last Vital Signs Temp 98.8 F 05/29/21 08:00 Pulse 68 05/29/21 08:00 Resp 18 05/29/21 08:00 BP 169/87 H 05/29/21 08:00 Pulse Ox 97 05/29/21 08:00 Labs Result diagrams: 05/29/21 06:30 05/29/21 06:30 Labs: Laboratory Results - last 24 hr 05/29/21 05/29/21 05/29/21 06:30 06:30 06:30 WBC 6.60 RBC 3.71 L Hgb 9.4 L Hct 30.5 L MCV 82.2 MCH 25.3 L MCHC 30.8 L RDW 15.4 H Plt Count 461 H MPV 9.2 Immature Gran % 2.1 Neutrophils % 55.0 Lymphocytes % 30.6 Monocytes % 10.6 Eosinophils % 1.1 Basophils % 0.6 Nucleated RBC % 0 Absolute Neutrophils 3.63 Absolute Lymphocytes 2.02 Absolute Monocytes 0.70 Absolute Eosinophils 0.07 Absolute Basophils 0.04 Sodium 140 Potassium 3.7 Chloride 104 Carbon Dioxide 24.6 Anion Gap 11.4 H BUN 9 Creatinine 0.6 Estimated GFR/1.73 m2 >= 60.00 Glucose 101 Calcium 8.2 L Iron 28 L TIBC 188 L Transferrin % Sat 15 C-Reactive Protein 2.10 H
--- NOTE | 2021-05-29 08:40 | OTTR_ITS ---
Date of service: 05/29/21 Time of Service: 08:25 Occupational Therapy Notes Occupational Therapy Inpatient Treatment Note Date: 05/29/21 PRECAUTIONS: Fall, standard, DNR/DNI SUBJECTIVE: Pt was sitting in bed when OT arrived and her breakfast had just arrived as well. OBJECTIVE- EATING: Pt was sitting in her bed eating when OT arrived. She is able to (I) grasp her cup with handles, OT recommends that pt utilize a cup with top and handles to increase her (I) with her eating routine. Her positioning in bed should also be sitting upright which she is receptive too. OT assessed her (I) with food to mouth and reach and grasp mechanisms during her eating routine which she does well with. She did not require max (A) throughout her eating routine but some (A) with opening containers and packaging and fine motor demands on her digits. Tray set up with min (A) but otherwise she is doing well. ASSESSMENT/PLAN: Pt feels that she is at her baseline level of function and performing her ADLs/IADLs like she did prior at the SNF. She reports that she does require (A) for almost all of her ADLs and she feels that this is where she is at her baseline. Based on this, OT will plan to discharge pt from skilled OT services at this time. TREATMENT CODES/TIME: [id number], 10 minutes (08:25) IRLANDA Gu[facility]en[facility]
--- NOTE | 2021-05-29 09:00 | PDOC.CMPRO ---
- If Service Date Differs Date of service: 05/29/21 Time of Service: 09:01 Care Management Progress Note S/O: Darlene continues to be closely monitored and treated, per MD, urology ([facility]) and vascular ([facility] are being consulted. No change to overall plan, Darlene will return to [facility] upon discharge. CM continues to follow. A: 55 year old female admitted to [facility] 05/24/21 with Pneumonia and cellulitis P: Darlene will return to [facility] when medically cleared. She will follow up with facility providers and plan of care and transport via facility van. CM will continue to support Darlene and her discharge needs.
[2021-05-29] MEDS: predniSONE 5 MG TAB PO ×2 (09:23→19:28)
[2021-05-29] MEDS: Sertraline 50 MG TAB 150 MG PO (09:24)
[2021-05-29] MEDS: Tacrolimus 0.5 MG CAP 2 MG PO (09:24)
[2021-05-29] MEDS: Zinc Sulfate 220 MG TAB PO (09:28)
[2021-05-29] MEDS: Mirabegron 50 MG TABCR PO (09:29)
[2021-05-29] MEDS: Cholecalciferol (Vitamin D3) 1,000 UNIT TAB 2000 UNITS PO (09:29)
[2021-05-29] MEDS: Famotidine 20 MG TAB PO ×2 (09:29→19:27)
[2021-05-29] MEDS: Magnesium Oxide 400 MG TAB PO ×2 (09:29→18:19)
[2021-05-29] MEDS: levETIRAcetam 500 MG TAB 1500 MG PO ×2 (09:30→19:26)
[2021-05-29] MEDS: Venlafaxine 37.5 MG CAPCR 75 MG PO (09:30)
[2021-05-29] MEDS: Silver sulfaDIAZINE 1% 25 GM TUBE TP ×2 (09:31→19:30)
[2021-05-29] MEDS: Senna TAB 2 TAB PO ×2 (09:31→19:26)
[2021-05-29] MEDS: Nystatin CREAM 15 GM TUBE TP ×2 (09:32→19:30)
--- NOTE | 2021-05-29 10:11 | PDOC.CMDIS ---
- If Service Date Differs Date of service: 05/29/21 Time of Service: 10:11 LACE Index Scoring Tool - Questions: Length of Stay (in days): 4 - 6 Acuity (Admit via E.D.?): Yes Comorbidities: with End Organ Damage, Mild Liver/Renal Disease E.D. Visits: 4 - Answers: Total Score: 16 Risk of Readmission: High Risk Care Management Discharge Reason for Hospitalization: cellulitis of left arm Discharge Plan: Discharge back to [facility]. Follow up with community providers and discharge plan of care as prescribed. Patient/Family Education Needs: Review discharge instructions, limitations and plan to follow up with community providers. ask me three. Services Needed at Discharge: Custodial Facility (Discharge back to [facility]), Transportation (via EMS/[facility] arranged by CM. )
--- NOTE | 2021-05-29 12:07 | NUR.NOTE ---
Nursing Note: Spoke with urology dept regarding Nilsa's increased leakage around suprapubic. Dr. Berman not available today, Aleah Fernandes stated Darlene has exhaused all her options so far with this chronic leaking problem. There was some talk of botox that did not get followed up on. She will work with [facility] to get an appointment quicker then her follow up currently scheduled for 06-15. Aleah states blowing up the balloon further would not be helpful due to bladder spasms which Darlene is being medicated for.
[2021-05-29] MEDS: oxyCODONE 5 mg/Acetaminophen 325 mg TAB 1 TAB PO (12:14)
[2021-05-29] MEDS: fentaNYL 100 MCG/2 ML VIAL 25 MCG IVP (13:05)
--- NOTE | 2021-05-29 13:10 | W.PM.PROGNOT ---
Date of Service Date of service: 05/29/21 Time of Service: 13:10 Assessment and Plan Assessment and plan (1) Deep vein thrombophlebitis of arm: Status: Suspected Assessment and plan: I spoke w/ Dr. Medina from [facility] vascular service and he would like the patient transferred to [facility] so they can evaluate her left arm (2) Suprapubic catheter dysfunction: Status: Acute Assessment and plan: Dr. Berman is not available today to re-evaluate her catheter but per the P.A. the patient has had a lot of problems w/ leakage and they have already tried to upsize the kidd catheter and they have considered botox. At this point there is nothing new try. Qualifiers: Encounter type: initial encounter Qualified Code(s): T83.010A - Breakdown (mechanical) of cystostomy catheter, initial encounter (3) DVT prophylaxis: Status: Acute (4) LLL pneumonia: Status: Acute Assessment and plan: Patient has been on treatment for pneumonia +/- cellulitis of her left forearm. she has been on iv vancomycin and cefepime. she is aferile and while she still has a moist cough, she is not hypoxic and not dyspneic. Qualifiers: Pneumonia type: due to unspecified organism Qualified Code(s): J18.9 - Pneumonia, unspecified organism Subjective Subjective Interval history since last seen: Patient w/ increased swelling and pain over left arm site of AV fistula ligation. There is also increased edema in the mid and proximal humerus. Exam Narrative Exam Narrative: Middle aged white female who is in pain and crying; she complains of left arm pain Left arm w/ intact suture line w/ out drainage; there appears to be large balloon like swelling over the volar surface of left arm just above the suture line that is tender and ballotable and is fluid filled per bedside U.S.; POCUS exam reveal the left basilic vein to be compressible but the cephalic vein appears to be thrombosed and thrombosis is quite large and extends up to proximal humerus Lungs: clear anteriorly Heart: RRR Abdomen: obese, soft, nontender; suprapubic catheter still leaking around ostomy Objective Last Vital Signs Temp 37.1 C 05/29/21 08:00 Pulse 68 05/29/21 08:00 Resp 18 05/29/21 08:00 BP 169/87 H 05/29/21 08:00 Pulse Ox 97 05/29/21 08:00 Laboratory Results - last 24 hr 05/29/21 05/29/21 05/29/21 06:30 06:30 06:30 WBC 6.60 RBC 3.71 L Hgb 9.4 L Hct 30.5 L MCV 82.2 MCH 25.3 L MCHC 30.8 L RDW 15.4 H Plt Count 461 H MPV 9.2 Immature Gran % 2.1 Neutrophils % 55.0 Lymphocytes % 30.6 Monocytes % 10.6 Eosinophils % 1.1 Basophils % 0.6 Nucleated RBC % 0 Absolute Neutrophils 3.63 Absolute Lymphocytes 2.02 Absolute Monocytes 0.70 Absolute Eosinophils 0.07 Absolute Basophils 0.04 Sodium 140 Potassium 3.7 Chloride 104 Carbon Dioxide 24.6 Anion Gap 11.4 H BUN 9 Creatinine 0.6 Estimated GFR/1.73 m2 >= 60.00 Glucose 101 Calcium 8.2 L Iron 28 L TIBC 188 L Transferrin % Sat 15 C-Reactive Protein 2.10 H
[2021-05-29 15:54] LABS: Vancomycin, Trough 22.1 ug/mL (10.0-20.0)
[2021-05-29 16:09] VITALS: BP 143/73; PULSE 68; RESP 18; TEMP 37.1; O2SAT 98
[2021-05-29] MEDS: Enoxaparin 80 MG/0.8 ML SYR SC (18:19)
--- NOTE | 2021-05-29 18:38 | W.PM.DS.N ---
Date of service: 05/29/21 Time of Service: 18:38 DS: Diagnosis Discharge Diagnosis (1) Deep vein thrombophlebitis of arm: Status: Acute (2) Ground glass opacity present on imaging of lung: Status: Acute (3) Cellulitis of arm, left: Status: Ruled-out (4) LLL pneumonia: Status: Acute (5) Complicated UTI (urinary tract infection): Status: Acute (6) Ambulatory dysfunction: Status: Chronic (7) Palliative care patient: Status: Acute Discharge Plan Disposition Patient Disposition: [facility] Condition: Stable Discharge Details Reason For Visit: Pneumonia, Cellulitis Admit Date/Time: 05/24/21 19:15 Admit Provider: Leonard German Attending Provider: Leonard German Primary Care Provider: Randall Ling Hospital Course Hospital Course: This 65-year-old female resident of [facility] has a history of renal transplant and recently had surgical closure of left AV fistula 1 week prior at [facility]. She presented from the long-term to the emergency department on 05/24/2021 with complaints of left arm pain and swelling as well as generalized malaise and vague abdominal complaints. Patient also has a history of perirectal abscess for which she had a recent drain placed while she was at [facility]. She has a colostomy and a chronic suprapubic catheter. Other comorbidities include TBI, seizure disorder, protein S deficiency, chronic kidney disease, adrenal insufficiency, hypertension, hyperparathyroidism, osteoarthritis and ambulatory dysfunction. She is pretty much bedbound. Work-up in the ER included routine labs as well as blood cultures and a CT scan of the chest abdomen pelvis as well as of her left arm. CBC showed a normal white count of 10,000 which later in the afternoon germain to 11,000. She had a chronic anemia with hemoglobin of 10.6 g. Blood lactate was elevated at 1.6 and after IV fluid hydration came down to 1.1. CBC demonstrated elevated anion gap of 12.6 and a BUN of 19 with a creatinine of 0.7. LFTs were within normal limits CRP was high at 20.9 and procalcitonin level was 0.1. Troponin I level was normal at less than 50x2 sets. Albumin is low 2.9. Urinalysis was consistent with a UTI showing positive nitrites large amount of blood large amount leukocyte esterase with greater than 50 white cells per high-powered field and many bacteria. Eventually urine culture came back positive for Proteus mirabilis but blood cultures showed no growth. Nasal swab for MRSA screen was positive. Nasopharyngeal swab was negative for SARS-CoV-2. Because of the prevalence of COVID-19 in the area half-way facilities repeat levels were done on May 25 and May 26, 2021 all which came back negative for SARS-CoV-2 as well as negative for influenza and RSV. Imaging included CT scan of the left upper extremity with contrast and this showed an enlarged thrombosed AV fistula shunt. At the level of the shoulder there is a stent appears to be probably thrombosed. CT of the abdomen pelvis showed severe bilateral atrophy of the [place] kidneys with a right pelvic transplant kidney that was unremarkable. She has a suprapubic catheter in the urinary bladder and a left lower lobe infiltrate with some new bilateral groundglass infiltrates. She has a left perirectal abscess that is decreased in size compared to prior studies from 04/11/2021. Patient was treated with broad-spectrum antibiotics including vancomycin and Zosyn for both treatment of her left arm cellulitis as well as her left lower lobe pneumonia. She was put on stress dose IV hydrocortisone for her adrenal insufficiency. Urology and pulmonary services were consulted respectively to evaluate her suprapubic catheter which had been leaking as well as pulmonary services to comment on her groundglass opacifications and PUI status for SARS-CoV-2. Dr. Venice Cho saw the patient on May 18, 2021. See her recommendations for full detail. In summary she felt that in light of a couple negative Covid test that the patient did not have evidence for Covid and that isolation precautions could be discontinued and she did not recommend giving her Remdesivir. She indicates she does have a left lower lobe pneumonia and she agreed with broad-spectrum coverage but recommend changing Zosyn to cefepime to reduce the risk of renal injury. She felt 3 days of vancomycin should be sufficient and recommended continuation of cefepime. On discharge recommend Levaquin upon discharge for total of 7 days. She recommended repeat imaging of her chest to ensure resolution of her infiltrates. Patient continue to receive treatment for pneumonia including bronchodilators and parenteral antibiotics as listed above as well as incentive spirometry and Vibra-pep pulmonary toiletry. Patient did well from a pneumonia standpoint and did not require supplemental oxygenation. Because of her renal transplant NSAIDs cannot be given for her superficial thrombophlebitis. Initially it was thought that she had a cellulitis but in fact it was actually thrombophlebitis of her left arm. The hospital service contacted vascular service from [facility] for the recommendations after they had a chance to review her CT scan of her arm. It was felt that this was an expected result of the AV fistula ligation. It was recommended that heat and elevation and NSAIDs be used. However because of her renal transplant status we did not give her NSAIDs but use moist heat and elevation of the arm as well as a compression stocking. Patient had improved from her pneumonia standpoint in the left arm has shown improvement in its erythema and induration in the patient appeared to be nearing discharge back to the long-term however on the day of discharge it was noted that her left arm was very painful and very swollen and the hospital service contacted vascular surgery again at [facility] and after explaining the rapid increase in the size of her arm and pain vascular service agreed to take her in transfer for reevaluation. On the day of discharge a venous duplex scan of the left arm was obtained and this confirmed a thrombus in the distal subclavian just proximal to her stent. It also confirmed a thrombosed AV fistula. The patient had been on prophylactic dose of enoxaparin 40 mg daily however with the discovery of the left subclavian thrombosis patient was started on 80 mg of enoxaparin subcutaneously every 12 hours that is 1 mg/kg subcutaneously every 12 hours. Patient's pain was treated with parenteral narcotics. Patient was accepted by the vascular service at [facility] to the service of Dr. Ousmane Medina. Patient's guardian Nicol Gruber was notified of the vascular consult and acceptance in transfer to [facility]. Home Meds and New Rx's Prescriptions: No Action guaifenesin 100 mg/5 mL liquid 400 mg PO Q4H PRNRF: 0 levetiracetam [Keppra] 750 MG tablet 1,500 mg PO BID RF: 0 Myrbetriq 50 mg tablet extended release 24 hr 50 mg PO DAILY RF: 0 Liquid Protein Fortifier 1 gram-4 kcal/6 mL Liquid 30 ml PO DAILY RF: 0 d-mannose 500 mg Capsule 2,000 mg PO DAILY RF: 0 morphine 15 mg tablet extended release 30 mg PO QHS RF: 0 Biofreeze (menthol) 4 % Gel 1 applic TOPICAL TID RF: 0 sertraline 50 mg tablet 150 mg PO DAILY RF: 0 acetaminophen 325 mg Tablet 650 mg PO Q6H PRNRF: 0 Fleet Enema 19-7 gram/118 mL Enema 118 ml OH DAILY PRNRF: 0 simethicone 125 mg Tablet,Chewable 125 mg PO TID PRNRF: 0 morphine 15 mg tablet extended release 15 mg PO QAM RF: 0 venlafaxine 75 mg Tablet Extended Release 24hr 75 mg PO DAILY RF: 0 sennosides [Senokot] 8.6 mg tablet 2 tab PO BID RF: 0 tacrolimus 0.5 mg capsule 1 mg PO QHS RF: 0 ciprofloxacin HCl 500 mg Tablet 500 mg PO BID Qty: 28 RF: 0 oxycodone-acetaminophen [Percocet] 5-325 mg tablet 1 tab PO Q6H PRNQty: 20 RF: 0 Bio-K plus 50 billion cell capsule,delayed release(DR/EC) 1 cap PO DAILY Qty: 30 RF: 0 mycophenolate mofetil 250 mg Capsule 250 mg PO BID RF: 0 prednisone 5 mg Tablet 5 mg PO Q OTHER DAY RF: 0 magnesium oxide 400 mg Capsule 400 mg PO TID RF: 0 furosemide 20 mg Tablet 20 mg PO BID Qty: 0 RF: 0 magnesium hydroxide [Milk of Magnesia] 400 mg/5 mL Suspension 30 ml PO BID PRN PRNQty: 0 RF: 0 bisacodyl 10 mg Suppository 10 mg OH BID PRN PRNQty: 0 RF: 0 nystatin 100,000 unit/gram cream 100,000 applic TOPICAL TID RF: 0 polyethylene glycol 3350 17 gram/dose Powder 17 g PO DAILY PRNRF: 0 tacrolimus 0.5 mg capsule 2 mg PO QAM RF: 0 acetic acid 0.25 % Solution 50 ml irrigation HS RF: 0 silver sulfadiazine 1 % Cream 1 applic TOPICAL BID RF: 0 Discharge Instructions Instructions: Deep Vein Thrombosis (DC) Stand Alone Forms: Nursing Discharge Form Referrals: Ousmane Medina [ [facility] STAFF PHYSICIAN] - Activity:: bedrest Diet:: Normal Diet Discharge Orders Discharge Orders: Discharge Order (Routine); Ordered 05/29/21 Ordered By: Deondre Reynolds DS: Summary Time Spent with Patient providing and/or coordinating discharge services: Greater than 30 minutes Status at Discharge Functional status at discharge: bed bound Overall status at discharge: patient is not back to baseline Mental Status: mental status grossly normal Speech and Movement: speech and movement normal Mood: anxious mood Affect: anxious affect Exam Narrative Exam Narrative: Middle aged white female who is in pain and crying; she complains of left arm pain Left arm w/ intact suture line w/ out drainage; there appears to be large balloon like swelling over the volar surface of left arm just above the suture line that is tender and ballotable and is fluid filled per bedside U.S.; POCUS exam reveal the left basilic vein to be compressible but the cephalic vein appears to be thrombosed and thrombosis is quite large and extends up to proximal humerus Lungs: clear anteriorly Heart: RRR Abdomen: obese, soft, nontender; suprapubic catheter still leaking around ostomy Psych Mental Status: mental status grossly normal Speech and Movement: speech and movement normal Mood: anxious mood Affect: anxious affect DS: Data Vitals/I&O Vitals and I&O: Vital Signs Temperature 37.1 C 05/29/21 16:09 Temperature Source Tympanic 05/29/21 16:09 Pulse 68 05/29/21 16:09 Pulse Rhythm Regular 05/29/21 14:46 Pulse 99 H 05/24/21 20:10 Respiratory Rate 18 05/29/21 16:09 Respiratory Effort Non-Labored 05/29/21 14:46 Respiratory Depth Normal 05/29/21 14:46 Respiratory Pattern Normal 05/29/21 14:46 Blood Pressure 143/73 H 05/29/21 16:09 Blood Pressure Mean 86 05/24/21 18:45 Blood Pressure Position Supine 05/24/21 14:24 Pulse Oximetry 98 05/29/21 16:09 Oxygen Delivery Method Room Air 05/29/21 16:09 Oxygen Flow Rate 0 05/29/21 16:09 Pain Level 10 05/29/21 13:05 Comment 05/27/21 22:31 Intake & Output 05/28/21 05/29/21 05/29/21 23:59 11:59 23:59 Intake Total 1270 / 2070 960 / 1700 740 / 1700 Output Total 400 / 1000 2250 / 3600 1350 / 3600 Balance 870 / 1070 -1290 / -1900 -610 / -1900 Intake: IV 420 / 720 440 / 440 Oral 850 / 1350 520 / 1260 740 / 1260 Output: Urine 350 / 900 1850 / 3200 1350 / 3200 Stool 50 / 100 400 / 400 Other: Urine Color Yellow Yellow Yellow Urine Appearance Clear Clear Clear Comment superpubic insertion area leaking urine still. area cleaned and dried at this time. superpubic insertion area leaking urine still. area cleaned and dried at this time. superpubic insertion area leaking urine still. area cleaned and dried at this time. Data Completed and Pending Labs on day of discharge: Labs from last 24 hours 05/29/21 05/29/21 05/29/21 15:15 06:30 06:30 WBC RBC Hgb Hct MCV MCH MCHC RDW Plt Count MPV Immature Gran % Neutrophils % Lymphocytes % Monocytes % Eosinophils % Basophils % Nucleated RBC % Absolute Neutrophils Absolute Lymphocytes Absolute Monocytes Absolute Eosinophils Absolute Basophils Sodium 140 Potassium 3.7 Chloride 104 Carbon Dioxide 24.6 Anion Gap 11.4 H BUN 9 Creatinine 0.6 Estimated GFR/1.73 m2 >= 60.00 Glucose 101 Calcium 8.2 L Iron 28 L TIBC 188 L Transferrin % Sat 15 C-Reactive Protein 2.10 H Vancomycin Trough 22.1 H* 05/29/21 06:30 WBC 6.60 RBC 3.71 L Hgb 9.4 L Hct 30.5 L MCV 82.2 MCH 25.3 L MCHC 30.8 L RDW 15.4 H Plt Count 461 H MPV 9.2 Immature Gran % 2.1 Neutrophils % 55.0 Lymphocytes % 30.6 Monocytes % 10.6 Eosinophils % 1.1 Basophils % 0.6 Nucleated RBC % 0 Absolute Neutrophils 3.63 Absolute Lymphocytes 2.02 Absolute Monocytes 0.70 Absolute Eosinophils 0.07 Absolute Basophils 0.04 Sodium Potassium Chloride Carbon Dioxide Anion Gap BUN Creatinine Estimated GFR/1.73 m2 Glucose Calcium Iron TIBC Transferrin % Sat C-Reactive Protein Vancomycin Trough PFSH All Active Problems (Updated 05/29/21 @ 18:39 by Deondre Reynolds) Palliative care patient (Acute) Deep vein thrombophlebitis of arm (Acute) Suprapubic catheter dysfunction (Acute) DVT prophylaxis (Acute) Ground glass opacity present on imaging of lung (Acute) LLL pneumonia (Acute) Incontinence in female (Acute) Discharge planning issues (Acute) Complicated UTI (urinary tract infection) (Acute) Candice-rectal abscess (Chronic) Ambulatory dysfunction (Chronic) Adrenal insufficiency (Chronic) Hypercoagulable state, primary (Chronic) Hypertension (Chronic) Osteoarthritis of left hip (Chronic) Medical History C5 vertebral fracture Cerebellar lesion Chronic anticoagulation Chronic kidney disease Hyperparathyroidism Lytic bone lesions on xray on CT Neurogenic bladder Osteoporosis Peripheral neuropathy Protein S deficiency Seizure disorder TBI (traumatic brain injury) Surgical History Colonoscopy - MAC (02/11/15) INO MERINO Fistula creation History of kidney transplant S/P kidney transplant Social History Smoking/Tobacco Use Status: Never Smoking risk assessment performed?: Yes Alcohol Intake: never Drug use: Never Substance use type: does not use Do you feel safe at home: Yes Do you feel safe in your relationship?: Yes Additional Social history: Lives at [facility]
[2021-05-29] MEDS: Tacrolimus 0.5 MG CAP 1 MG PO (19:28)
--- NOTE | 2021-05-29 19:40 | PT.INDS ---
Date of service: 05/29/21 PT Notes Visit Reasons: Pneumonia, Cellulitis Physical Therapy Inpatient Discharge Summary Date: 05/29/2021 Dates of service: 05/25/2021 3 05/28/2021 This is a clinical summary of care provided for the duration of dates listed above. No charge was made in the completion of this documentation. Referring Doctor: Renée Dumont MD PT Orders: PT CONSULT: Limited ability Precautions: Fall. Standard. Wheelchair-bound, mechanical lift only for all transfers. UE sleeve on at all times to minimize swelling in L UE. COVID-[address] Patient Profile/Admitting Diagnosis: Stacy is a 55-year-old female who presented to the ED on 05/24/2021 with left arm swelling, increased redness, increased warmth. She is status post left-sided fistula ligation a week ago. Patient is diagnosed with cellulitis of left arm, left lower lobe pneumonia, dehydration, and COVID-19 infection. PMHX: All Active Problems (Updated 05/24/21 @ 19:47 by Leonard German MD) Dehydration (Acute) Cellulitis of arm, left (Acute) LLL pneumonia (Acute) Incontinence in female (Acute) Discharge planning issues (Acute) Complicated UTI (urinary tract infection) (Acute) Candice-rectal abscess (Chronic) Ambulatory dysfunction (Chronic) Adrenal insufficiency (Chronic) Hypercoagulable state, primary (Chronic) Hypertension (Chronic) Osteoarthritis of left hip (Chronic) Medical History C5 vertebral fracture Cerebellar lesion Chronic anticoagulation Chronic kidney disease Hyperparathyroidism Lytic bone lesions on xray on CT Neurogenic bladder Osteoporosis Peripheral neuropathy Protein S deficiency Seizure disorder TBI (traumatic brain injury) Surgical History Colonoscopy - [facility] (02/11/15) INO MERINO Fistula creation History of kidney transplant S/P kidney transplant Social History/Home Situation: LTC resident at the SNF. Wheelchair-bound since summer. Equipment Owned/DME: Wheelchair Subjective: NT. See most recent NOTE SPECIALIST notes. Objective: General Observation: NT. See most recent NOTE SPECIALIST notes. Mental Status: NT. See most recent NOTE SPECIALIST notes. Pain: NT. See most recent NOTE SPECIALIST notes. ROM: Right Upper Extremity: Shoulder Flexion allows up to 80 degrees. Shoulder abduction allows up to 60 degrees. Elbow flexion WFL. Wrist flexion WFL. Functional opening and closing of hand limited, IP flexion limited. Left Upper Extremity: Shoulder Flexion allows up to 60 degrees. Shoulder abduction allows up to 45 degrees. Elbow flexion WFL. Wrist flexion WFL. Functional opening and closing of hand limited, IP flexion limited. Right Lower Extremity: Hip flexion unable. Hip abduction unable. Knee flexion about 10 degrees. Ankle dorsiflexion absent. Ankle plantarflexion absent. Left Lower Extremity: Hip flexion unable. Hip abduction unable. Knee flexion about 10 degrees. Ankle dorsiflexion absent. Ankle plantarflexion absent. Strength: Right Upper Extremity: Shoulder flexors 3-/5. Shoulder abductors 3-/5. Elbow flexors 3/5. Elbow extensors 3-/5. Boxing Instructor weak and non-functional. Left Upper Extremity: Shoulder flexors 3-/5. Shoulder abductors 3-/5. Elbow flexors 3/5. Elbow extensors 3-/5. Boxing Instructor weak and non-functional. Right Lower Extremity: Hip flexors 1/5. Hip abductors 1/5. Knee flexors 2-/5. Knee extensors 2-/5. Ankle dorsiflexors 1/5. Ankle plantarflexors 1/5. Left Lower Extremity: Hip flexors 1/5. Hip abductors 1/5. Knee flexors 2-/5. Knee extensors 2-/5. Ankle dorsiflexors 1/5. Ankle plantarflexors 1/5. Bed Mobility/Transfers: Rolling with moderate assist Supine to sit moderate assist of 2 Sit to supine moderate assist of 2 Sit to stand unable, mechanical lift only Stand to sit with unable, mechanical lift only Reclining chair to bed unable, mechanical lift only Gait: Unable, mechanical lift only Balance: Static Sitting: Poor Dynamic Sitting: Poor Static Standing: Unable Dynamic Standing: Unable Assessment: Darlene has been non-ambulatory for over a year now and requires use of mechanical lift for all transfers. Patient presents with clinical signs and symptoms consistent with current/admitting diagnoses that have resulted to mobility limitations, gait instability, generalized weakness, and overall ADL decline as demonstrated by the following impairment level findings: 1. Decreased strength to B UE/LE major muscle groups 2. Absent sitting/standing balance 3. Impaired activity tolerance 4. Limitation of joint range of motion in in B UE/LE 5. Swelling in left UE 6. Fixed bilateral calcaneal valgus deformity Impairments are contributing to the following functional limitations: 1. Decline in bed mobility skills 2. Decline in transfer skills 3. Non-ambulatory, wheelchair-bound 4. Increased completion time for mobility ADL performance 5. Increased risk skin breakdown 6. Increased risk for joint contractures Goals: Goals X1 week 1. Patient will decrease L UE swelling with proper use of L UE compression garment and AROM exercises to increase participation with ADLs NOT MET 2. Patient will increase active range of motion in L shoulder and elbow to decrease swelling and increase ADL participation NOT MET 3. Patient will demonstrate 100% mastery of B UE/LE exercises to minimize contracture formation and prevent skin breakdown MET DISCHARGE RECOMMENDATIONS: [] Home with no services [] [] Home with services [specify] [] Home with outpatient PT [] [] SNF for continued rehabilitation [] [X] [facility]. Return to SNF when medically cleared by hospitalist. Benefit from continued PT services to address impairments in range of motion, limb girth, and strength. [] SNF versus LTC based on ability to participate and progress [] TREATMENT CODE/TIME: AR Thank you for the opportunity to participate in the care of this patient. Scarlet Jade PT, DPT, CLT [facility] [place], [place]
[2021-05-29] MEDS: MORPHine 2 MG/ML SYR IVP (19:49)
== END 2021-05-29 19:55 | disposition short-term general hospital (02) | DRG 314 ==
LOC: ER 18:43 → MS 20:21
PROVIDERS: Internal Medicine; Registered Nurse Emergency; Admitting Provider Family Medicine; Emergency Provider Physician Assistant; PCP Family Medicine; Visit Provider Family Medicine
DX: T82.868A Thrombosis due to vascular prosthetic devices, implants and grafts, initial encounter; J18.9 Pneumonia, unspecified organism; L89.153 Pressure ulcer of sacral region, stage 3; L03.114 Cellulitis of left upper limb; E27.40 Unspecified adrenocortical insufficiency; Z94.0 Kidney transplant status; D68.59 Other primary thrombophilia; D84.821 Immunodeficiency due to drugs; N39.0 Urinary tract infection, site not specified; T83.010A Breakdown (mechanical) of cystostomy catheter, initial encounter; I82.622 Acute embolism and thrombosis of deep veins of left upper extremity; E86.0 Dehydration; Z93.3 Colostomy status; Z93.51 Cutaneous-vesicostomy status; R32 Unspecified urinary incontinence; I10 Essential (primary) hypertension; M16.12 Unilateral primary osteoarthritis, left hip; M81.0 Age-related osteoporosis without current pathological fracture; G62.9 Polyneuropathy, unspecified; G40.909 Epilepsy, unspecified, not intractable, without status epilepticus; N31.9 Neuromuscular dysfunction of bladder, unspecified; Z79.01 Long term (current) use of anticoagulants; N18.9 Chronic kidney disease, unspecified; Z87.820 Personal history of traumatic brain injury; B96.4 Proteus (mirabilis) (morganii) as the cause of diseases classified elsewhere; Z22.322 Carrier or suspected carrier of Methicillin resistant Staphylococcus aureus; E21.3 Hyperparathyroidism, unspecified
CPT/HCPCS: 51705; 36415; 74177; 80048; 80053; 80076; 84145; 85027; 87040; 87077; 87081; 87637; 96361; 96374; 96375; 97110; 97163; 97165; 97535; 97761; 99221; 99291; J1650; 71260; 73201; 80197; 80202; 81003; 81015; 82728; 83540; 83550; 83605; 83735; 84484; 85025; 85379; 85610; 86140; 87086; 87186; 93971; 99223; 99232; 99233; 99239; J0248; J1200; J1720; J1941; J2270; J2543; J3010; J3490; J7512; J7517

== ENCOUNTER → 2021-05-26 08:08 | Outpatient (BNVA) | payer MEDICARE, MEDICAID, SELFPAY | PROVIDERS: PCP Family Medicine; Referring Provider Family Medicine; Visit Provider Urology | DX: R69 Illness, unspecified (principal) ==

== ENCOUNTER 2021-06-01 10:52 | Outpatient (REF) | payer MEDICARE, MEDICAID, SELFPAY ==
[2021-06-03 11:59] LABS: Tacrolimus 3.5 ng/mL (See Note)
== END 2021-06-02 01:53 | disposition home or self-care (01) ==
LOC: LBN 10:52
PROVIDERS: PCP Family Medicine; Visit Provider Family Medicine
DX: Z94.0 Kidney transplant status (principal); Z92.25 Personal history of immunosuppression therapy
CPT/HCPCS: 80197

== ENCOUNTER → 2021-06-07 08:26 | Outpatient (BNVA) | payer MEDICARE, MEDICAID, SELFPAY | PROVIDERS: PCP Family Medicine; Referring Provider Family Medicine; Visit Provider Nurse Practitioner Gerontology | DX: N31.9 Neuromuscular dysfunction of bladder, unspecified (principal) | CPT/HCPCS: 99214 ==

== ENCOUNTER 2021-06-11 08:51 | Emergency (ER) | payer MEDICARE, MEDICAID, SELFPAY ==
[2021-06-11 08:53] VITALS: BP 145/72; PULSE 81; RESP 20; TEMP 36.4; O2SAT 98
[2021-06-11 08:59] VITALS: RESP 16
--- NOTE | 2021-06-11 09:00 | DI.CT_ITS ---
Exam(s) CT ABDOMEN PELVIS WO EXAM: CT ABDOMEN PELVIS WO CLINICAL HISTORY: change in calvin-rectal abcess. TECHNIQUE: Imaging Protocol: Axial computed tomography images with coronal and sagittal reformatted images were created and reviewed. COMPARISON: CT CT ABDOMEN PELVIS W from 04/11/[address] UPPER EXTREMITY LT W from 05/24/[address] CHEST/ABD/PEL W from 05/24/2021 FINDINGS: Lack of IV contrast does limit evaluation of the abdominal pelvic organs. The examination is limited due to patient motion artifact. ABDOMEN: Lung Bases: There is again seen an ground-glass opacities in the lung bases particularly the left dewey gula. There is again seen an area of consolidation in the left lower lobe. Coronary artery calcific ations are present. Liver: Normal density. No measurable mass. Gallbladder and biliary tract: No radiodense calculus or biliary ductal dilation. Pancreas: Normal density, no abnormal calcifications or inflammatory process. Spleen: Normal. Kidneys: There is again seen marked atrophy of the [place] kidneys. There is an unremarkable transpla nted right pelvic kidney.No radiodense stones or obstructive uropathy. Small renal cysts are present. Adrenal glands: No mass is seen. Lymph nodes: Within normal limits. Abdominal Aorta: Abdominal portion non-dilated. Atherosclerosis. PELVIS: Bladder:The patient has a suprapubic catheter. No gross abnormality seen in the urinary bladder. Bowel: No obstruction or bowel wall thickening. Appendix is unremarkable. There is a double-barrel c olostomy in the left lower quadrant. Peritoneal cavity: No ascites. No free air. There is a 4.3 x 1.5 x 2.2 cm fluid collection along th e left pelvic wall adjacent to the rectum. This was present on the prior examination but show slight increase in size. There is mild surrounding fat stranding. Reproductive organs: Within normal limits. Bones: Age-appropriate degenerative changes in the spine. Severe degenerative changes seen in the le ft hip. Soft Tissues: Within normal limits. IMPRESSION: Slight increase in size of the left pelvic wall abscess. It measures 4.3 x 1.5 x 2.2 cm. Mild infla mmatory changes are seen. RADIATION DOSE DELIVERED: 1,349.95mGy.cm Total DLP DATA REPOSITORY: All CT scans at this facility are submitted to the National Radiology Data Registry (NRDR) Dose Index Registry (DIR) with the [employer] (A[employer]). RADIATION OPTIMIZATION: All CT scans at this facility use at least one of these dose optimization te chniques: automated exposure control; mA and/or kV adjustment per patient size (includes targeted exa ms where dose is matched to clinical indication); or iterative reconstruction.
--- NOTE | 2021-06-11 09:12 | ED.GENADUL_ITS ---
Discharge Plan Disposition Patient Disposition: SNF (LEVEL 1) [facility] Condition: Stable Discharge Details Clinical Impression: Candice-rectal abscess Primary Care Provider: Randall Ling ED Provider: Neda James Home Meds and New Rx's Prescriptions: New amoxicillin-pot clavulanate 875-125 mg tablet 1 tab PO BID 7 Days Qty: 14 0RF Continued citalopram 20 mg tablet 20 mg PO DAILY 0RF levetiracetam [Keppra] 750 MG tablet 1,500 mg PO BID 0RF Myrbetriq 50 mg tablet extended release 24 hr 50 mg PO DAILY 0RF Liquid Protein Fortifier 1 gram-4 kcal/6 mL Liquid 30 ml PO DAILY 0RF d-mannose 500 mg Capsule 1,000 mg PO BID 0RF morphine 15 mg tablet extended release 30 mg PO QHS 0RF Biofreeze (menthol) 4 % Gel 1 applic TOPICAL TID 0RF sertraline 50 mg tablet 100 mg PO DAILY 0RF acetaminophen 325 mg Tablet 650 mg PO Q6H PRN0RF Fleet Enema 19-7 gram/118 mL Enema 118 ml MA DAILY PRN0RF simethicone 125 mg Tablet,Chewable 125 mg PO TID PRN0RF morphine 15 mg tablet extended release 15 mg PO QAM 0RF venlafaxine 75 mg Tablet Extended Release 24hr 75 mg PO DAILY 0RF sennosides [Senokot] 8.6 mg tablet 2 tab PO BID 0RF tacrolimus 0.5 mg capsule 1 mg PO QHS 0RF oxycodone-acetaminophen [Percocet] 5-325 mg tablet 1 tab PO Q6H PRNQty: 20 0RF Bio-K plus 50 billion cell capsule,delayed release(DR/EC) 1 cap PO DAILY Qty: 30 0RF mycophenolate mofetil 250 mg Capsule 250 mg PO BID 0RF prednisone 5 mg Tablet 5 mg PO Q OTHER DAY 0RF magnesium oxide 400 mg Capsule 400 mg PO TID 0RF furosemide 20 mg Tablet 20 mg PO BID Qty: 0 0RF magnesium hydroxide [Milk of Magnesia] 400 mg/5 mL Suspension 30 ml PO BID PRN PRNQty: 0 0RF bisacodyl 10 mg Suppository 10 mg MA BID PRN PRNQty: 0 0RF nystatin 100,000 unit/gram cream 100,000 applic TOPICAL TID 0RF polyethylene glycol 3350 17 gram/dose Powder 17 g PO DAILY PRN0RF tacrolimus 0.5 mg capsule 2 mg PO QAM 0RF acetic acid 0.25 % Solution 50 ml irrigation HS 0RF silver sulfadiazine 1 % Cream 1 applic TOPICAL BID 0RF Discharge Instructions Instructions: Abscess (ED) Additional Instructions: If patient starts to run a fever, have any vomiting, or any further worsening of drainage from abscess please have patient return to emergency department for reevaluation. Otherwise ensure that patient takes antibiotics as prescribed and follow-up with provider that is already treating patient's perirectal abscess. Please do not use an occlusive dressing such as Mepilex to the area. Perform wound care daily with a wet-to-dry dressing or dry gauze to allow for air circulation. Follow up with primary care provider in 3-5 days. Return to ED sooner if any worsening or concerns. Increase oral fluids. Please if there are any more concerns or worsening drainage or fever or signs of infection please follow-up with general surgery. Referrals: Randall Ling [Primary Care Provider] - Lizbeth Bridges DO [OSTEOPATHIC DOCTOR] - 1 week Discharge Data Discharge Date/Time-TO BE ENTERED AT DEPARTURE: 06/11/21 16:53 Medical Decision Making <Michael Locke NP - Last Filed: 06/12/21 08:05> Patient presenting to the emergency department for chief complaint of perirectal abscess that is bleeding. [facility] and this morning they noted significant bleeding from perirectal abscess. This abscess is a ch ronic ongoing problem but bleeding is reportedly new. Patient states that she has hungry and wants breakfast and appears to be at typical baseline with episodes of crying and then periods of normal speaking talking. This makes it difficult to fully assess patient's pain. Remove dressing that was placed on by [facility] and abscess does not appear to have any signs of bleeding drainage or odor at this time. Surrounding area is erythematous which I believe is baseline for patient. Plan to check basic labs and CT imaging without contrast given patient's history of renal dysfunction. Will give patient morphine pending results. Review of patient's labs is reassuring showing that patient has no leukocytosis, chronic anemia that is stable and appears close to or above baseline, and CMP along with lactate that is nondiagnostic and not worrisome. CT imaging does show a pelvic wall abscess slightly increased in size more than before. Did consult with Dr. Anne who recommended a pelvic CT with rectal contrast and to treat patient as if she had diverticulitis. Patient was started on Augmentin and CT ordered. Due to significant need of to technicians CT had significant delay but was able to be performed in the emergency department. Lab Data Labs: Laboratory Tests Range/Units 06/11/21 06/11/21 06/11/21 09:30 09:30 09:30 WBC (4.4-10.8) 10^3/uL 7.01 RBC (3.93-5.22) 10^6/uL 4.03 Hgb (11.2-15.7) g/dL 10.2 L Hct (36.0-46.0) % 33.1 L MCV (80-95) fL 82.1 MCH (27.0-33.0) pg 25.3 L MCHC (32.0-36.0) % 30.8 L RDW (11.7-14.6) % 16.0 H Plt Count (130-400) 10^3/uL 353 D MPV (8.0-11.0) fL 9.0 Immature Gran % 0.4 Neutrophils % 68.5 Lymphocytes % 20.5 Monocytes % 7.0 Eosinophils % 3.0 Basophils % 0.6 Nucleated RBC % % 0 Absolute Neutrophils (1.2-6.7) 10^3/uL 4.80 Absolute Lymphocytes (1.2-3.4) 10^3/uL 1.44 Absolute Monocytes (0.1-0.8) 10^3/uL 0.49 Absolute Eosinophils (0.0-0.7) 10^3/uL 0.21 Absolute Basophils (0.0-0.2) 10^3/uL 0.04 VBG Lactate (0.6-1.4) mmol/L 0.9 Sodium (136-145) mmol/L 135 L Potassium (3.5-5.1) mmol/L 3.9 Chloride (98-107) mmol/L 100 Carbon Dioxide (21.0-32.0) mmol/L 28.3 Anion Gap (3-11) mmol/L 6.7 BUN (7-18) mg/dL 25 H Creatinine (0.55-1.02) mg/dL 0.6 Estimated GFR/1.73 m2 (mL/min/1.73m2) >= 60.00 Glucose (74-106) mg/dL 108 H Calcium (8.5-10.1) mg/dL 8.6 Total Bilirubin (0.2-1.0) mg/dL 0.5 AST (15-37) U/L 17 ALT (14-59) U/L 17 Alkaline Phosphatase (46-116) U/L 92 Total Protein (6.4-8.2) g/dL 7.7 Albumin (3.4-5.0) g/dL 3.1 L <Neda James - Last Filed: 06/11/21 19:27> Patient presenting to the emergency department for chief complaint of perirectal abscess that is bleeding. [facility] and this morning they noted significant bleeding from perirectal abscess. This abscess is a ch ronic ongoing problem but bleeding is reportedly new. Patient states that she has hungry and wants breakfast and appears to be at typical baseline with episodes of crying and then periods of normal speaking talking. This makes it difficult to fully assess patient's pain. Remove dressing that [facility] and abscess does not appear to have any signs of bleeding drainage or odor at this time. Surrounding area is erythematous which I believe is baseline for patient. Plan to check basic labs and CT imaging without contrast given patient's history of renal dysfunction. Will give patient morphine pending results. Review of patient's labs is reassuring showing that patient has no leukocytosis, chronic anemia that is stable and appears close to or above baseline, and CMP along with lactate that is nondiagnostic and not worrisome. CT imaging does show a pelvic wall abscess slightly increased in size more than before. Did consult with Dr. Anne who recommended a pelvic CT with rectal contrast and to treat patient as if she had diverticulitis. Patient was started on Augmentin and CT ordered. Due to significant need of to technicians CT had significant delay but was able to be performed in the emergency department. 1638: Care assumed from provider (Harrison Locke NP) Please see their initial HPI, PE, and documentation. Discussed patient details and case and pending workup and disposition. Patient is hemodynamically stable, and alert and oriented. At this time we are awaiting CT results. CT result shows: Impression: 1. Fistulous communication confirmed at least 1 place between the left pelvic wall abscess and rectum 2. No other appreciable changes since the earlier study. 1639: Spoke with Dr. Vick who is familiar with the case and on-call for general surgery. She recommends wet-to-dry dressing and dry gauze and not Mepilex. She also recommends antibiotic such as Augmentin or similar for diverticulitis. At this point she does not recommend surgery for this particular patient. Discussed home care and dressing changes with patient and family who verbalized understanding. Prescription given for Augmentin. This text was generated using [employer] dictation system, please disregard any oddities of phrase or misspellings. HPI <Michael Locke NP - Last Filed: 06/12/21 08:05> General Mode of arrival: EMS . Date/Time Provider Initiated Documentation: 06/11/21 08:57 . Information obtained by: patient, RN notes reviewed and old records reviewed . History of Present Illness 55 year old F presents to the emergency department with the chief complaint of Perirectal bleeding abscess, described as similar to prior episodes, and is localized to the buttocks. Patient started experiencing this unknown and it has been constant. improves with No relieving factors improve symptom(s), No exacerbating factors reported . Patient notes no other symptoms.. Patient did receive the following treatments prior to arrival, none Related Data Home Medications Medication Instructions Recorded Confirmed levetiracetam 750 mg tablet 1,500 mg PO BID 08/15/13 06/11/21 (Keppra) mycophenolate mofetil 250 mg 250 mg PO BID 10/19/18 06/11/21 capsule prednisone 5 mg tablet 5 mg PO Q OTHER DAY 10/19/18 06/11/21 magnesium oxide 400 mg PO TID 10/29/18 06/11/21 furosemide 20 mg tablet 20 mg PO BID #0 tab 11/04/18 06/11/21 bisacodyl 10 mg rectal suppository 10 mg MA BID PRN PRN #0 ea 02/11/19 06/11/21 magnesium hydroxide 400 mg/5 mL 30 ml PO BID PRN PRN #0 ml 02/11/19 06/11/21 oral suspension (Milk of Magnesia) d-mannose 500 mg capsule 1,000 mg PO BID 09/14/20 06/11/21 menthol 4 % topical gel (Biofreeze 1 applic TOPICAL TID 09/14/20 06/11/21 (menthol)) mirabegron 50 mg tablet,extended 50 mg PO DAILY 09/14/20 06/11/21 release 24 hr (Myrbetriq) morphine 15 mg tablet,extended 30 mg PO QHS 09/14/20 06/11/21 release protein hydrolysate,milk 1 gram-4 30 ml PO DAILY 09/14/20 06/11/21 kcal/6 mL oral liquid (Liquid Protein Fortifier) nystatin 100,000 unit/gram topical 100,000 applic TOPICAL TID 11/17/20 06/11/21 cream polyethylene glycol 3350 17 17 g PO DAILY PRN 11/17/20 06/11/21 gram/dose oral powder tacrolimus 0.5 mg capsule, 2 mg PO QAM 11/17/20 06/11/21 immediate-release acetaminophen 325 mg tablet 650 mg PO Q6H PRN 04/11/21 06/11/21 morphine 15 mg tablet,extended 15 mg PO QAM 04/11/21 06/11/21 release sennosides 8.6 mg tablet (Senokot) 2 tab PO BID 04/11/21 06/11/21 simethicone 125 mg chewable tablet 125 mg PO TID PRN 04/11/21 06/11/21 sodium phosphates 19 gram-7 118 ml MA DAILY PRN 04/11/21 06/11/21 gram/118 mL enema (Fleet Enema) tacrolimus 0.5 mg capsule, 1 mg PO QHS 04/11/21 06/11/21 immediate-release venlafaxine 75 mg tablet,extended 75 mg PO DAILY 04/11/21 06/11/21 release 24 hr L. acidophilus,casei,rhamnosus 50 1 cap PO DAILY #30 cap 04/14/21 06/11/21 billion cell capsule,delayed release (Bio-K plus) oxycodone-acetaminophen 5 mg-325 1 tab PO Q6H PRN #20 tab 04/14/21 06/11/21 mg tablet (Percocet) acetic acid 0.25 % irrigation 50 ml IRRIGATION HS 05/24/21 05/24/21 solution silver sulfadiazine 1 % topical 1 applic TOPICAL BID 05/24/21 05/24/21 cream citalopram 20 mg tablet 20 mg PO DAILY 06/07/21 06/11/21 sertraline 50 mg tablet 100 mg PO DAILY tab 06/07/21 06/11/21 amoxicillin 875 mg-potassium 1 tab PO BID 7 Days #14 tab 06/11/21 clavulanate 125 mg tablet Previous Rx's Medication Instructions Recorded furosemide 20 mg tablet 20 mg PO BID #0 tab 11/04/18 bisacodyl 10 mg rectal suppository 10 mg MA BID PRN PRN #0 ea 02/11/19 magnesium hydroxide 400 mg/5 mL 30 ml PO BID PRN PRN #0 ml 02/11/19 oral suspension (Milk of JellyCloud) L. acidophilus,casei,rhamnosus 50 1 cap PO DAILY #30 cap 04/14/21 billion cell capsule,delayed release (Bio-K plus) oxycodone-acetaminophen 5 mg-325 1 tab PO Q6H PRN #20 tab 04/14/21 mg tablet (Percocet) amoxicillin 875 mg-potassium 1 tab PO BID 7 Days #14 tab 06/11/21 clavulanate 125 mg tablet Allergies Allergy/AdvReac Type Severity Reaction Status Date / Time codeine Allergy Severe Unverified 06/11/21 09:07 divalproex sodium Allergy Unverified 06/11/21 09:07 [From Depakote] povidone-iodine AdvReac Unknown Skin Rash Unverified 06/11/21 09:07 [From Betadine] soap [From Betadine] AdvReac Skin Rash Unverified 06/11/21 09:07 General Stated Complaint: GenMedical AD: 3 Review of Systems <Michael Locke NP - Last Filed: 06/12/21 08:05> Unobtainable due to mental condition (patrially obtainable due to medical history) Constitutional Constitutional: Denies fever(s) and Denies poor appetite Gastrointestinal Gastrointestinal: Denies abdominal pain, Denies diarrhea, Denies vomiting and Reports other (reports wanting to eat) Integumentary/Breasts Skin/Breast: Reports as per HPI, Reports skin pain and Reports skin ulcer PFSH <Michael Locke NP - Last Filed: 06/12/21 08:05> All Active Problems (Updated 06/11/21 @ 15:21 by Michael Locke NP) Palliative care patient (Acute) Deep vein thrombophlebitis of arm (Acute) Suprapubic catheter dysfunction (Acute) Ground glass opacity present on imaging of lung (Acute) LLL pneumonia (Acute) Incontinence in female (Acute) Candice-rectal abscess (Chronic) Ambulatory dysfunction (Chronic) Adrenal insufficiency (Chronic) Hypercoagulable state, primary (Chronic) Hypertension (Chronic) Osteoarthritis of left hip (Chronic) Medical History C5 vertebral fracture Cerebellar lesion Chronic anticoagulation Chronic kidney disease Hyperparathyroidism Lytic bone lesions on xray on CT Neurogenic bladder Osteoporosis Peripheral neuropathy Protein S deficiency Seizure disorder TBI (traumatic brain injury) Surgical History Colonoscopy - MAC (02/11/15) INO MERINO Fistula creation History of kidney transplant S/P kidney transplant Social History Smoking/Tobacco Use Status: Never Smoking risk assessment performed?: Yes Alcohol Intake: never Drug use: Never Substance use type: does not use Do you feel safe at home: Yes Do you feel safe in your relationship?: Yes Additional Social history: Lives at [facility] Exam <Michael Locke NP - Last Filed: 06/12/21 08:05> Const General: anxious and ill appearing chronically Orientation: alert and awake Resp Effort & Inspection: normal respiratory effort Auscultation: clear to auscultation bilaterally Cardio Rate: regular rate Rhythm: regular rhythm and abnormal rhythm GI Inspection: distended and other (Suprapubic catheter in place) Palpation: soft Auscultation: normal bowel sounds Rectal Exam - female: other (Ulcer superior to the rectum, not bleeding at time of evaluation, 1.5cm) Skin Wounds: wounds noted ulceration central other size (1.5cm), bed with tunneling, margins well defined and with surrounding erythema, without odor and open; Negative for no drainage Psych Affect: sad, animated and anxious affect Course <Michael Locke NP - Last Filed: 06/12/21 08:05> Vital Signs Vital signs: Vital Signs Temperature 36.4 C L 06/11/21 08:53 Pulse 81 06/11/21 08:53 Respiratory Rate 20 06/11/21 08:53 Blood Pressure 145/72 H 06/11/21 08:53 Pulse Oximetry 98 06/11/21 08:53 Temperature 36.4 C L 06/11/21 08:53 Temperature Source Temporal Artery Scan 06/11/21 08:53 Pulse 81 06/11/21 08:53 Respiratory Rate 16 06/11/21 08:59 Respiratory Effort Non-Labored 06/11/21 08:59 Respiratory Depth Normal 06/11/21 08:59 Respiratory Pattern Normal 06/11/21 08:59 Blood Pressure 145/72 H 06/11/21 08:53 Blood Pressure Position Supine 06/11/21 08:53 Pulse Oximetry 98 06/11/21 08:53 Oxygen Delivery Method Room Air 06/11/21 08:53 Oxygen Flow Rate 0 06/11/21 08:53 Pain Level 10 06/11/21 08:53 Sign Out <Michael Locke NP - Last Filed: 06/12/21 08:05> Sign Out Data: Sign Out Comment: Patient pending pelvic CT with rectal contrast result prior to discharge. Last updated by Michael Locke NP at 06/11/21 16:02
[2021-06-11] MEDS: MORPHine 4 MG/ML SYR IVP (09:30)
[2021-06-11 09:35] LABS: Lactate 0.9 mmol/L (0.6-1.4)
[2021-06-11 09:38] LABS: Abs Immature Grans 0.03 10^3/uL (0.0-0.06); Absolute Basophil Count 0.04 10^3/uL (0.0-0.2); Absolute Eosinophil Count 0.21 10^3/uL (0.0-0.7); Absolute Lymphocyte Count 1.44 10^3/uL (1.2-3.4); Absolute Monocyte Count 0.49 10^3/uL (0.1-0.8); Basophils % 0.6; HCT 33.1 % (36.0-46.0); HGB 10.2 g/dL (11.2-15.7); Immature Grans % 0.4; Lymphocytes % 20.5; MCH 25.3 pg (27.0-33.0); MCHC 30.8 % (32.0-36.0); MCV 82.1 fL (80-95); Neutrophils % 68.5; Nucleated RBC 0 %; Platelet Count 353 10^3/uL (130-400); RBC 4.03 10^6/uL (3.93-5.22); RDW-SD 47.9 fL; WBC 7.01 10^3/uL (4.4-10.8)
[2021-06-11] MEDS: Normal Saline Flush 10 ML SYR IVP (09:40)
[2021-06-11 09:52] LABS: ALT 17 U/L (14-59); AST 17 U/L (15-37); Albumin 3.1 g/dL (3.4-5.0); Alkaline Phosphatase 92 U/L (46-116); Anion Gap 6.7 mmol/L (3-11); BUN 25 mg/dL (7-18); Bilirubin, Total 0.5 mg/dL (0.2-1.0); CO2 28.3 mmol/L (21.0-32.0); CREATININE 0.6 mg/dL (0.55-1.02); Calcium 8.6 mg/dL (8.5-10.1); Chloride 100 mmol/L (98-107); Glucose 108 mg/dL (74-106); Potassium 3.9 mmol/L (3.5-5.1); Sodium 135 mmol/L (136-145); Total Protein 7.7 g/dL (6.4-8.2)
--- NOTE | 2021-06-11 10:20 | DI.VRAD_ITS ---
PROCEDURE INFORMATION: Exam: CT Abdomen And Pelvis Without Contrast Exam date and time: 06/11/2021 9:12 AM Age: 55 years old Clinical indication: Other: Change in calvin-rectal abscess TECHNIQUE: Imaging protocol: Computed tomography of the abdomen and pelvis without contrast. Radiation optimization: All CT scans at this facility use at least one of these dose optimization techniques: automated exposure control; mA and/or kV adjustment per patient size (includes targeted exams where dose is matched to clinical indication); or iterative reconstruction. COMPARISON: CT CHEST/ABD/PEL W 05/24/2021 3:53 PM FINDINGS: Tubes, catheters and devices: A suprapubic catheter is present within the bladder. Lungs: Left lung base ground-glass opacity as well as scarring and consolidation in the left lung base. This is similar to prior exam. Heart: Heart size is normal. Scattered coronary artery calcifications are present. Diffuse mitral valve calcifications are present as well. Liver: Normal. No mass. Gallbladder and bile ducts: Normal. No calcified stones. No ductal dilation. Pancreas: Normal. No ductal dilation. Spleen: Normal. No splenomegaly. Adrenal glands: Normal. No mass. Kidneys and ureters: The kidneys are atrophic, similar to prior exam. A transplanted kidney is present within the right pelvis. Stomach and bowel: A diverting colostomy is in place. There is a small fluid collection along the left pelvic wall adjacent to the rectum that measures approximately 4.3 x 1.5 by 2.2 cm in size. This is slightly larger than on prior exam of 05/24/2021. There is mild surrounding fat stranding/inflammatory change. Appendix: No evidence of appendicitis. Intraperitoneal space: Unremarkable. No free air. No significant fluid collection. Vasculature: Diffuse aortoiliac calcifications are present. There is no evidence of abdominal aortic aneurysm. Lymph nodes: Unremarkable. No enlarged lymph nodes. Urinary bladder: Unremarkable as visualized. Reproductive: Unremarkable as visualized. 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 Moderate osteoarthritic changes are present in the right hip. Soft tissues: Unremarkable. IMPRESSION: 1. Left pelvic wall abscess, mildly increased in size when compared to prior examination now measuring up to 4.3 cm. Mild surrounding inflammatory changes about this abscess. 2. Multiple chronic changes as above. Dictated and Authenticated by: Michael Bullock MD. Ordering:JONI Rodriguez MD
--- NOTE | 2021-06-11 12:00 | DI.CT_ITS ---
Exam(s) CT PELVIC WO EXAM: CT PELVIC WO CLINICAL HISTORY: Evaluation of perirectal abscess/possible fistula. TECHNIQUE: Imaging Protocol: Axial computed tomography images with coronal and sagittal reformatted images were created and reviewed. CONTRAST MATERIAL: Oral: No Rectal contrast: Rectal contrast was attempted. The patient was unable to retain all of the rectal c ontrast. COMPARISON: CT CT ABDOMEN PELVIS WO from 06/11/2021 FINDINGS: PELVIS: Abdominal Aorta: Abdominal portion non-dilated. Atherosclerosis. Bowel: There is contrast material seen in the rectum and extending into the left perirectal abscess. There is a fistulous connection tracking superiorly from the rectum into the abscess. (Series 2, im ages 30-33). There may be a 2nd fistulous collection more inferiorly and posteriorly extending from the rectum into the abscess. There is no change in size of the left perirectal abscess compared to t he examination from earlier in the day. The patient has a left lower quadrant colostomy. Peritoneal Cavity: There is a right pelvic renal transplant. Marked atrophy of the minto kidneys ar e again noted. Soft Tissues: Unremarkable. Bladder: Symmetric distention, no gross wall thickening. Note is made of a suprapubic catheter. Reproductive Organs: Unremarkable as visualized. Lymph Nodes: Within normal limits. Bones: Within normal limits. Osteopenia. IMPRESSION: Left pelvic sidewall perirectal abscess. There is at least 1 fistulous communication demonstrated to the rectum as described above. RADIATION DOSE DELIVERED: 566.72mGy.cmTotal DLP 566.72mGy.cmTotal DLP DATA REPOSITORY: All CT scans at this facility are submitted to the National Radiology Data Registry (NRDR) Dose Index Registry (DIR) with the [employer] [place] [employer] (A[employer]). RADIATION OPTIMIZATION: All CT scans at this facility use at least one of these dose optimization te chniques: automated exposure control; mA and/or kV adjustment per patient size (includes targeted exa ms where dose is matched to clinical indication); or iterative reconstruction.
[2021-06-11] MEDS: Amoxicillin 875/Clav. 125 TAB PO (13:10)
--- NOTE | 2021-06-11 16:23 | DI.VRAD_ITS ---
PROCEDURE INFORMATION: Exam: CT Pelvis Without Contrast Exam date and time: 06/11/2021 1:49 PM Age: 55 years old Clinical indication: Other: Evaluation of perirectal abscess/possible fistula; Additional info: Patient received rectal contrast but was unable to retain TECHNIQUE: Imaging protocol: Computed tomography images of the pelvis without contrast. COMPARISON: CT ABDOMEN PELVIS WO 06/11/2021 9:50 AM FINDINGS: Tubes, catheters and devices: Suprapubic catheter with balloon presumably in nondistended urinary bladder. Evaluation of urinary bladder limited by nondistention. Aorta: Distal aorta and iliac arteries demonstrate moderate atherosclerosis without evidence of aneurysm. Kidneys and ureters: Partially visualized kidneys demonstrate marked renal atrophy. Renal transplant within right hemipelvis with no evidence of stone or obstruction. Stomach and bowel: Although the patient was unable to retain the rectal contrast, contrast material did extend into the left perirectal abscess which is similar in size and extent to the comparison study. The abscess collection is irregularly-shaped and therefore difficult to measure but extends toward and along the left internal iliac muscle. One fistulous connection is fairly well demonstrated with contrast tracking superiorly from the rectum (coronal image 45) into the air and fluid collection. There may be additional fistulous communication posteriorly from the rectum to the abscess (see axial images 297-314) although contrast is not demonstrated within this likely fistulous tract. Moderate amount of stool of the visualized portion of the colon. Left lower quadrant colostomy. Appendix: No evidence of appendicitis. Intraperitoneal space: Unremarkable. No free air. No significant fluid collection. Lymph nodes: Unremarkable. No enlarged lymph nodes. Urinary bladder: See Tubes, catheters and devices finding. Reproductive: Normal as visualized. Bones/joints: Marked bone demineralization. Osteoarthritic changes both hips greater on the left than the right with extensive subchondral cyst formation and articular surface deformity on the left. Soft tissues: Small fat containing ventral hernia just below the suprapubic catheter, small fat containing umbilical hernia, and peristomal fat herniation at colostomy site. IMPRESSION: 1. Fistulous communication confirmed in at least 1 place between left pelvic wall abscess and rectum. 2. No other appreciable changes since the earlier study. Dictated and Authenticated by: Joseph Virk MD. Ordering:JONI Rodriguez MD
[2021-06-11 16:51] VITALS: BP 122/71; PULSE 85; RESP 18; TEMP 36.9; O2SAT 95
[2021-06-11 16:55] VITALS: BP 122/71; PULSE 85; RESP 18; TEMP 36.9; O2SAT 95
[2021-06-11] MEDS: Amox. 875/Clav. 125, 2 TABS/BTL 1 TAB PO (16:55)
== END 2021-06-11 16:53 | disposition skilled nursing facility (03) ==
PROVIDERS: Nurse Practitioner Family; Emergency Provider Registered Nurse Emergency; PCP Family Medicine
DX: K61.1 Rectal abscess (principal)
CPT/HCPCS: 36415; 80053; 96374; 99284; 72192; 74176; 83605; 85025; 99283; J2270

== ENCOUNTER 2021-06-23 21:45 | Emergency (ER) | payer MEDICARE, MEDICAID, SELFPAY ==
[2021-06-23 21:30] VITALS: BP 118/60; PULSE 82; RESP 16; TEMP 36.8; O2SAT 99
--- NOTE | 2021-06-23 21:45 | DI.CT_ITS ---
Exam(s) CT ABDOMEN PELVIS W EXAM: CT ABDOMEN PELVIS W CLINICAL HISTORY: Abdominal distention and pain TECHNIQUE: Imaging Protocol: Axial computed tomography images with coronal and sagittal reformatted images were created and reviewed CONTRAST MATERIAL: Intravenous: Omnipaque 350 Contrast volume:100 mL Oral: No COMPARISON: CT CT PELVIC WO from 06/11/[address] ABDOMEN PELVIS WO from 06/11/2021 FINDINGS: ABDOMEN: Lung Bases: There is a small infiltrate seen in the left lower lobe. Cardiomegaly, coronary artery c alcification and mitral valve calcification is present. Small hiatal hernia. Liver: Normal density. No measurable mass. Portal, Superior Mesenteric, and Splenic Veins: Unremarkable. Gallbladder and Biliary Tract: No radiodense calculus or dilation. Pancreas: Normal density, no abnormal calcifications or inflammatory process. Mild pancreatic atrophy . Spleen: Normal. Adrenals: No masses seen. Kidneys: There is again seen marked atrophy of the patient's [place] kidneys. There is a right pelvic renal transplant. The renal transplant is unremarkable. No radiodense stones or obstructive uropat hy. No masses seen. Abdominal Aorta: Abdominal portion non-dilated. Atherosclerosis. Bowel: There is again seen a double-barrel colostomy in the left abdomen. There is no evidence of shadi wel obstruction. No evidence of acute appendicitis. Peritoneal Cavity: There does not appear to be any significant change in size of the left perirectal abscess. Air is seen within the collection. No free air. Lymph Nodes: Within normal limits. Bones: Within normal limits for the patient's age. There are stable degenerative changes seen in the lumbar spine. There are marked degenerative changes seen in the hips, left greater than right. The re is a right convex scoliosis. Soft Tissues: Unremarkable. PELVIS: Bladder: There is a suprapubic catheter in place. The urinary bladder is not well distended. Reproductive Organs: Unremarkable as visualized. Lymph Nodes: Within normal limits. Bones: Within normal limits for the patient's age. IMPRESSION: 1. Persistent left pelvic sidewall abscess which is unchanged. 2. Severe atrophy of the [place] kidneys. Unremarkable left renal pelvic transplant. 3. Atelectasis or scarring in the left lower lobe which appears stable. Chronic pulmonary changes in the lung bases. RADIATION DOSE DELIVERED: 1,070.01mGy.cm Total DLP DATA REPOSITORY: All CT scans at this facility are submitted to the National Radiology Data Registry (NRDR) Dose Index Registry (DIR) with the [employer] (A[employer]). RADIATION OPTIMIZATION: All CT scans at this facility use at least one of these dose optimization te chniques: automated exposure control; mA and/or kV adjustment per patient size (includes targeted exa ms where dose is matched to clinical indication); or iterative reconstruction.
[2021-06-23 22:10] LABS: Abs Immature Grans 0.06 10^3/uL (0.0-0.06); Absolute Basophil Count 0.04 10^3/uL (0.0-0.2); Absolute Eosinophil Count 0.14 10^3/uL (0.0-0.7); Absolute Lymphocyte Count 1.46 10^3/uL (1.2-3.4); Absolute Monocyte Count 0.39 10^3/uL (0.1-0.8); Absolute Neutrophil Count 4.64 10^3/uL (1.2-6.7); Basophils % 0.6; Eosinophils % 2.1; HCT 35.3 % (36.0-46.0); HGB 10.8 g/dL (11.2-15.7); Immature Grans % 0.9; Lymphocytes % 21.7; MCH 25.3 pg (27.0-33.0); MCHC 30.6 % (32.0-36.0); MCV 82.7 fL (80-95); MPV 9.1 fL (8.0-11.0); Monocytes % 5.8; Neutrophils % 68.9; Nucleated RBC 0 %; Platelet Count 384 10^3/uL (130-400); RBC 4.27 10^6/uL (3.93-5.22); RDW 16.2 % (11.7-14.6); RDW-SD 48.3 fL; WBC 6.73 10^3/uL (4.4-10.8)
--- NOTE | 2021-06-23 22:37 | ED.GENADUL_ITS ---
Discharge Plan Disposition Patient Disposition: HOME Condition: Stable Discharge Details Clinical Impression: Suprapubic catheter dysfunction, Abdominal distension Primary Care Provider: Randall Ling ED Provider: Kyle Lovett [place] Meds and New Rx's Prescriptions: Continued citalopram 20 mg tablet 20 mg PO DAILY 0RF levetiracetam [Keppra] 750 MG tablet 1,500 mg PO BID 0RF Myrbetriq 50 mg tablet extended release 24 hr 50 mg PO DAILY 0RF Liquid Protein Fortifier 1 gram-4 kcal/6 mL Liquid 30 ml PO DAILY 0RF d-mannose 500 mg Capsule 1,000 mg PO BID 0RF morphine 15 mg tablet extended release 30 mg PO QHS 0RF Biofreeze (menthol) 4 % Gel 1 applic TOPICAL TID 0RF sertraline 50 mg tablet 100 mg PO DAILY 0RF acetaminophen 325 mg Tablet 650 mg PO Q6H PRN0RF Fleet Enema 19-7 gram/118 mL Enema 118 ml SD DAILY PRN0RF simethicone 125 mg Tablet,Chewable 125 mg PO TID PRN0RF morphine 15 mg tablet extended release 15 mg PO QAM 0RF venlafaxine 75 mg Tablet Extended Release 24hr 75 mg PO DAILY 0RF sennosides [Senokot] 8.6 mg tablet 2 tab PO BID 0RF tacrolimus 0.5 mg capsule 1 mg PO QHS 0RF oxycodone-acetaminophen [Percocet] 5-325 mg tablet 1 tab PO Q6H PRNQty: 20 0RF Bio-K plus 50 billion cell capsule,delayed release(DR/EC) 1 cap PO DAILY Qty: 30 0RF mycophenolate mofetil 250 mg Capsule 250 mg PO BID 0RF prednisone 5 mg Tablet 5 mg PO Q OTHER DAY 0RF magnesium oxide 400 mg Capsule 400 mg PO TID 0RF furosemide 20 mg Tablet 20 mg PO BID Qty: 0 0RF magnesium hydroxide [Milk of Magnesia] 400 mg/5 mL Suspension 30 ml PO BID PRN PRNQty: 0 0RF bisacodyl 10 mg Suppository 10 mg SD BID PRN PRNQty: 0 0RF nystatin 100,000 unit/gram cream 100,000 applic TOPICAL TID 0RF polyethylene glycol 3350 17 gram/dose Powder 17 g PO DAILY PRN0RF tacrolimus 0.5 mg capsule 2 mg PO QAM 0RF acetic acid 0.25 % Solution 50 ml irrigation HS 0RF silver sulfadiazine 1 % Cream 1 applic TOPICAL BID 0RF Discharge Instructions Additional Instructions: your cat scan did not show any new concerning findings follow up with urology within 1-2 weeks you can irrigate the kidd several times a day to help keep the kidd draining if you feel more ill, have severe pain or persistent vomit return to the emergency department Discharge Data Discharge Date/Time-TO BE ENTERED AT DEPARTURE: 06/24/21 01:00 Medical Decision Making <Michael Locke NP - Last Filed: 07/01/21 08:22> Patient presenting to the emergency department for chief complaint of abdominal distention and issues with suprapubic catheter. [facility] staff stated that they attempted to change catheter due to blood in patient's urine but when they reinserted catheter seem to continue to push into the abdomen with no urine output. Per report bladder scan was utilized and saw no urine and bladder. Patient with typical appearance of intermittent sobbing and weeping and then normal speech when asking questions. I recently saw patient which presented in similar fashion but today does have significantly distended abdomen. Suprapubic catheter is no longer in place but ostomy bag is present with normal appearance. Plan to perform labs and CT imaging for concern of possible perforation or issue with suprapubic catheter. We will also attempt to have nursing staff replace catheter. Patient will be given pain medication pending results. Daughter/caregiver presented to the emergency department and did inform me that they are in process of placing patient on comfort cares and hospice status. Had thorough discussion with daughter and given multiple comorbidities and chronic m edical conditions I do feel that this is a reasonable and right decision for patient's care. We will continue to proceed with emergency department evaluation given that this does not become official but they are starting that process. <Kyle Lovett MD - Last Filed: 06/24/21 00:42> Patient presenting to the emergency department for chief complaint of abdominal distention and issues with suprapubic catheter. [facility] staff stated that they attempted to change catheter due to blood in patient's urine but when they reinserted catheter seem to continue to push into the abdomen with no urine output. Per report bladder scan was utilized and saw no urine and bladder. Patient with typical appearance of intermittent sobbing and weeping and then normal speech when asking questions. I recently saw patient which presented in similar fashion but today does have significantly distended abdomen. Suprapubic catheter is no longer in place but ostomy bag is present with normal appearance. Plan to perform labs and CT imaging for concern of possible perforation or issue with suprapubic catheter. We will also attempt to have nursing staff r eplace catheter. Patient will be given pain medication pending results. Daughter/caregiver presented to the emergency department and did inform me that they are in process of placing patient on comfort cares and hospice status. Had thorough discussion with daughter and given multiple comorbidities and chronic medical conditions I do feel that this is a reasonable and right decision for patient's care. We will continue to proceed with emergency department evaluation given that this does not become official but they are starting that process. 06/24 pt signed out to me pending labs and imaging both of which show no acute changes, has the pelvic abscess that she is not having interventions done on, no perforation. Urine does have blood, nursing was able to place suprapubic catheter without issue and urine is now starting to clear, mild red tinge to this. Will hold on antibiotics, she has no compalints now, states she feels fine and would like to go back to rehab which I feel is reasonable. Advised to f/u with urology within 1-2 weeks if she wishes to continue having care and return precautions given Imaging Data Radiologic Study: Attestation: I personally reviewed and interpreted this imaging study as follows: Imaging: CT Scan Radiologist's impression: IMPRESSION: 1. 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 This is also evident on previous study 06/11/2021. No significant change. 2. Suprapubic bladder catheter remains in place. 3. Left renal transplant kidney is unremarkable. Severe atrophy of [place] kidneys. 4. Left lower abdominal wall double-barrel colostomy. No acute bowel obstruction. 5. Mild pancreatic atrophy. 6. Lung base bronchiectasis. Chronic appearing scarring or atelectasis of the posterior left lower lobe. HPI <Michael Locke NP - Last Filed: 07/01/21 08:22> General Mode of arrival: EMS . Date/Time Provider Initiated Documentation: 06/23/21 21:50 . Limitations to Documentation: no limitations . Information obtained by: patient, RN notes reviewed and old records reviewed . History of Present Illness 55 year old F presents to the emergency department with the chief complaint of Suprapubic difficulty and distended abdomen, described as moderate, with intensity rated at 10. Quality is described as sharp, and is localized to the abdomen. Patient started experiencing this day(s) (1) and it has been constant. improves with No relieving factors improve symptom(s), No exacerbating factors reported . Patient notes denies cough and fever/chills. Related Data Home Medications Medication Instructions Recorded Confirmed levetiracetam 750 mg tablet 1,500 mg PO BID 08/15/13 06/23/21 (Keppra) mycophenolate mofetil 250 mg 250 mg PO BID 10/19/18 06/23/21 capsule prednisone 5 mg tablet 5 mg PO Q OTHER DAY 10/19/18 06/23/21 magnesium oxide 400 mg PO TID 10/29/18 06/23/21 furosemide 20 mg tablet 20 mg PO BID #0 tab 11/04/18 06/23/21 bisacodyl 10 mg rectal suppository 10 mg SD BID PRN PRN #0 ea 02/11/19 06/23/21 magnesium hydroxide 400 mg/5 mL 30 ml PO BID PRN PRN #0 ml 02/11/19 06/23/21 oral suspension (Milk of Magnesia) d-mannose 500 mg capsule 1,000 mg PO BID 09/14/20 06/23/21 menthol 4 % topical gel (Biofreeze 1 applic TOPICAL TID 09/14/20 06/23/21 (menthol)) mirabegron 50 mg tablet,extended 50 mg PO DAILY 09/14/20 06/23/21 release 24 hr (Myrbetriq) morphine 15 mg tablet,extended 30 mg PO QHS 09/14/20 06/23/21 release protein hydrolysate,milk 1 gram-4 30 ml PO DAILY 09/14/20 06/11/21 kcal/6 mL oral liquid (Liquid Protein Fortifier) nystatin 100,000 unit/gram topical 100,000 applic TOPICAL TID 11/17/20 06/11/21 cream polyethylene glycol 3350 17 17 g PO DAILY PRN 11/17/20 06/11/21 gram/dose oral powder tacrolimus 0.5 mg capsule, 2 mg PO QAM 11/17/20 06/23/21 immediate-release acetaminophen 325 mg tablet 650 mg PO Q6H PRN 04/11/21 06/23/21 morphine 15 mg tablet,extended 15 mg PO QAM 04/11/21 06/23/21 release sennosides 8.6 mg tablet (Senokot) 2 tab PO BID 04/11/21 06/21/21 simethicone 125 mg chewable tablet 125 mg PO TID PRN 04/11/21 06/23/21 sodium phosphates 19 gram-7 118 ml SD DAILY PRN 04/11/21 06/23/21 gram/118 mL enema (Fleet Enema) tacrolimus 0.5 mg capsule, 1 mg PO QHS 04/11/21 06/23/21 immediate-release venlafaxine 75 mg tablet,extended 75 mg PO DAILY 04/11/21 06/23/21 release 24 hr L. acidophilus,casei,rhamnosus 50 1 cap PO DAILY #30 cap 04/14/21 06/11/21 billion cell capsule,delayed release (Bio-K plus) oxycodone-acetaminophen 5 mg-325 1 tab PO Q6H PRN #20 tab 04/14/21 06/23/21 mg tablet (Percocet) acetic acid 0.25 % irrigation 50 ml IRRIGATION HS 05/24/21 05/24/21 solution silver sulfadiazine 1 % topical 1 applic TOPICAL BID 05/24/21 05/24/21 cream citalopram 20 mg tablet 20 mg PO DAILY 06/07/21 06/23/21 sertraline 50 mg tablet 100 mg PO DAILY tab 06/07/21 06/23/21 Previous Rx's Medication Instructions Recorded furosemide 20 mg tablet 20 mg PO BID #0 tab 11/04/18 bisacodyl 10 mg rectal suppository 10 mg SD BID PRN PRN #0 ea 02/11/19 magnesium hydroxide 400 mg/5 mL 30 ml PO BID PRN PRN #0 ml 02/11/19 oral suspension (Milk of Magnesia) L. acidophilus,casei,rhamnosus 50 1 cap PO DAILY #30 cap 04/14/21 billion cell capsule,delayed release (Bio-K plus) oxycodone-acetaminophen 5 mg-325 1 tab PO Q6H PRN #20 tab 12/17/21 mg tablet (Percocet) Allergies Allergy/AdvReac Type Severity Reaction Status Date / Time codeine Allergy Severe Unverified 06/23/21 21:39 divalproex sodium Allergy Unverified 06/23/21 21:39 [From Depakote] povidone-iodine AdvReac Unknown Skin Rash Unverified 06/23/21 21:39 [From Betadine] soap [From Betadine] AdvReac Skin Rash Unverified 06/23/21 21:39 General Stated Complaint: Urinary AD: 4 Review of Systems <Michael Locke NP - Last Filed: 07/01/21 08:22> Constitutional Constitutional: Denies chills, Denies fever(s) and Denies malaise Cardiovascular Cardiovascular: Denies chest pain Respiratory Respiratory: Denies cough Gastrointestinal Gastrointestinal: Reports as per HPI, Reports abdominal pain, Reports bloating and Denies vomiting Genitourinary Genitourinary: Reports as per HPI and Reports hematuria Musculoskeletal Musculoskeletal: Reports system reviewed and no additional complaints, except as documented Neurologic Neurologic: Reports system reviewed and no additional complaints, except as documented Hematologic/Lymphatic Hematologic/Lymphatic: Reports system reviewed and no additional complaints, except as documented PFSH <Michael Locke NP - Last Filed: 07/01/21 08:22> All Active Problems (Updated 06/24/21 @ 00:40 by Kyle Lovett MD) Suprapubic catheter dysfunction (Acute) Abdominal distension (Acute) Depression (Chronic) DNR (do not resuscitate) (Acute) Palliative care patient (Acute) Deep vein thrombophlebitis of arm (Acute) Suprapubic catheter dysfunction (Acute) Ground glass opacity present on imaging of lung (Acute) LLL pneumonia (Acute) Incontinence in female (Acute) Candice-rectal abscess (Chronic) Ambulatory dysfunction (Chronic) Adrenal insufficiency (Chronic) Hypercoagulable state, primary (Chronic) Hypertension (Chronic) Osteoarthritis of left hip (Chronic) Medical History C5 vertebral fracture Cerebellar lesion Chronic anticoagulation Chronic kidney disease Hyperparathyroidism Lytic bone lesions on xray on CT Neurogenic bladder Osteoporosis Peripheral neuropathy Protein S deficiency Seizure disorder TBI (traumatic brain injury) Surgical History Colonoscopy - [facility] (02/11/15) INO MERINO Fistula creation History of kidney transplant S/P kidney transplant Social History Smoking/Tobacco Use Status: Never Smoking risk assessment performed?: Yes Alcohol Intake: never Drug use: Never Substance use type: does not use Do you feel safe at home: Yes Do you feel safe in your relationship?: Yes Additional Social history: Lives at [facility] <Michael Locke NP - Last Filed: 07/01/21 08:22> Const General: cooperative, anxious, ill appearing chronically and not lethargic Nutritional Appearance: overweight Orientation: alert and awake Resp Effort & Inspection: normal respiratory effort and able to speak in complete sentences Auscultation: clear to auscultation bilaterally Cardio Rate: regular rate Rhythm: regular rhythm Heart Sounds: S1 normal and S2 normal Pulses: radial pulses present GI Inspection: distended and other (Ostomy bag in place normal appearance) Palpation: firm and tender Auscultation: normal bowel sounds Neuro General: patient alert and patient awake Course <Michael Locke NP - Last Filed: 07/01/21 08:22> Vital Signs Vital signs: Vital Signs Temperature 36.8 C 06/23/21 21:30 Pulse 82 06/23/21 21:30 Respiratory Rate 16 06/23/21 21:30 Blood Pressure 118/60 06/23/21 21:30 Pulse Oximetry 99 06/23/21 21:30 Temperature 36.8 C 06/23/21 21:30 Temperature Source Skin 06/23/21 21:30 Pulse 82 06/23/21 21:30 Respiratory Rate 16 06/23/21 21:30 Respiratory Effort Non-Labored 06/23/21 21:36 Blood Pressure 118/60 06/23/21 21:30 Pulse Oximetry 99 06/23/21 21:30 Pain Level 10 06/23/21 21:36 Lab/Test Results Lab/Test Results: Laboratory Tests Range/Units 06/23/21 22:06 WBC (4.4-10.8) 10^3/uL 6.73 RBC (3.93-5.22) 10^6/uL 4.27 Hgb (11.2-15.7) g/dL 10.8 L Hct (36.0-46.0) % 35.3 L MCV (80-95) fL 82.7 MCH (27.0-33.0) pg 25.3 L MCHC (32.0-36.0) % 30.6 L RDW (11.7-14.6) % 16.2 H Plt Count (130-400) 10^3/uL 384 MPV (8.0-11.0) fL 9.1 Immature Gran % 0.9 Neutrophils % 68.9 Lymphocytes % 21.7 Monocytes % 5.8 Eosinophils % 2.1 Basophils % 0.6 Nucleated RBC % % 0 Absolute Neutrophils (1.2-6.7) 10^3/uL 4.64 Absolute Lymphocytes (1.2-3.4) 10^3/uL 1.46 Absolute Monocytes (0.1-0.8) 10^3/uL 0.39 Absolute Eosinophils (0.0-0.7) 10^3/uL 0.14 Absolute Basophils (0.0-0.2) 10^3/uL 0.04 Sign Out <Michael Locke NP - Last Filed: 07/01/21 08:22> Sign Out Data: Sign Out Comment: Patient pending CT imaging, review of labs, and disposition. Last updated by Michael Locke NP at 06/23/21 23:48
[2021-06-23 23:41] LABS: ALT 32 U/L (14-59); AST 31 U/L (15-37); Albumin 3.2 g/dL (3.4-5.0); Alkaline Phosphatase 98 U/L (46-116); Anion Gap 10.1 mmol/L (3-11); BUN 17 mg/dL (7-18); Bilirubin, Total 0.3 mg/dL (0.2-1.0); CO2 24.9 mmol/L (21.0-32.0); CREATININE 0.6 mg/dL (0.55-1.02); Calcium 8.4 mg/dL (8.5-10.1); Chloride 102 mmol/L (98-107); Glucose 119 mg/dL (74-106); Potassium 4.3 mmol/L (3.5-5.1); Sodium 137 mmol/L (136-145); Total Protein 7.6 g/dL (6.4-8.2)
[2021-06-23] MEDS: HYDROmorphone 2 MG/ML VIAL 0.5 MG IVP (23:43)
[2021-06-23 23:58] LABS: Bilirubin Negative (Negative); Blood Large (Negative); Clarity Turbid (Clear); Glucose Negative (Negative); Ketones Negative (Negative); Leukocyte Esterase Trace (Negative); Nitrite Negative (Negative); Specific Gravity >= 1.030 (1.005-1.025); Urobilinogen 0.2 EU/dL (Up TO 0.2)
[2021-06-24] MEDS: Omnipaque 350 MG/ML 100 ML BTL IV (00:04)
[2021-06-24 00:05] LABS: C & S Indicated? Yes; RBC >50 HPF (0-2)
--- NOTE | 2021-06-24 00:26 | DI.VRAD_ITS ---
Addendum created by Eliel Paez MD on 06/24/2021 12:29:34 AM EST: A small fat containing ventral abdominal wall hernia is seen above the supra umbilical catheter. No change since prior study. No acute strangulation. There is also a minor fat containing umbilical hernia without acute strangulation. Inadvertent exclusion from the impression section was the finding of mild edema of the gastric antrum region. Cannot exclude acute gastritis. Recommend clinical correlation. Initial report created on 06/24/2021 12:25:44 AM EST: PROCEDURE INFORMATION: Exam: CT Abdomen And Pelvis With Contrast Exam date and time: 06/23/2021 9:59 PM Age: 55 years old Clinical indication: Other: Abd distention and pain TECHNIQUE: Imaging protocol: Computed tomography of the abdomen and pelvis with contrast. Radiation optimization: All CT scans at this facility use at least one of these dose optimization techniques: automated exposure control; mA and/or kV adjustment per patient size (includes targeted exams where dose is matched to clinical indication); or iterative reconstruction. Contrast material: OMNIPAQUE 350; Contrast volume: 100 ml; Contrast route: INTRAVENOUS (IV); COMPARISON: CT PELVIC WO 06/11/2021 3:08 PM FINDINGS: Tubes, catheters and devices: Suprapubic bladder catheter is noted. Lungs: Bilateral lung base mild bronchiectasis and bronchial wall thickening suggesting chronic bronchitis or COPD. Posterior left lower lobe atelectatic type features which appears chronic. Scarring in the lateral left lower lobe of a linear nature. Pleural spaces: No pleural effusion. Heart: Moderate cardiac enlargement. Coronary artery atherosclerosis. Mitral valve calcification. No pericardial effusion. Liver: The liver is normal in size, contour and attenuation. Gallbladder and bile ducts: Partially contracted gallbladder. No acute biliary tract disease. Pancreas: Mild pancreatic atrophy. Spleen: The spleen is normal in size, contour and attenuation. Adrenal glands: Normal. No mass. Kidneys and ureters: Severe renal atrophy bilaterally. No obstructive uropathy. No renal mass or suspicious features. Renal transplant in the right pelvis is unremarkable in appearance. Stomach and bowel: Gastric morphology is unremarkable. Mild edema suggested of the gastric antrum. Cannot exclude gastritis. No gastric outlet obstruction. Small hiatal hernia. No acute features. Small bowel loops are unremarkable in course and caliber. Large bowel without acute features. Left lower quadrant double-barrel colostomy. No edema. No parastomal hernia. Appendix: No evidence of appendicitis. Intraperitoneal space: Left posterior pelvic fluid collection with a small air-fluid level is noted. This is along the posterolateral left pelvis adjacent to the rectum and along the medial aspect of the acetabulum. This is present on a prior study 06/11/2021. This is stable in size. AP length approximately 9 cm. Transverse approximately 1.5 cm. Cephalo caudal length approximately 8 cm. This is likely related to a rectal fistula tract and appears to represent a persistent abscess. There is some adjacent fatty stranding and inflammation. There is no dione progression or improvement since prior study approximately 2 weeks ago. Vasculature: Unremarkable. No abdominal aortic aneurysm. Lymph nodes: Unremarkable. No enlarged lymph nodes. Urinary bladder: Unremarkable as visualized. Collapsed with suprapubic catheter in place. Reproductive: Uterine atrophy. No adnexal mass or cyst. Bones/joints: Degenerative lumbar spine facet disease. Dextroscoliosis. Severe left hip joint degeneration. Soft tissues: Abdominal wall soft tissues are unremarkable. No acute abnormalities. IMPRESSION: 1. 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 This is also evident on previous study 06/11/2021. No significant change. 2. Suprapubic bladder catheter remains in place. 3. Left renal transplant kidney is unremarkable. Severe atrophy of [place] kidneys. 4. Left lower abdominal wall double-barrel colostomy. No acute bowel obstruction. 5. Mild pancreatic atrophy. 6. Lung base bronchiectasis. Chronic appearing scarring or atelectasis of the posterior left lower lobe. Dictated and Authenticated by: Eliel Paez MD. Ordering:JONI Rodriguez MD
[2021-06-24 00:43] VITALS: BP 128/49; PULSE 74; RESP 16; O2SAT 97
== END 2021-06-24 01:00 | disposition home or self-care (01) ==
PROVIDERS: Nurse Practitioner Family; Emergency Provider Emergency Medicine; PCP Family Medicine
DX: T83.098A Other mechanical complication of other urinary catheter, initial encounter (principal); R14.0 Abdominal distension (gaseous)
CPT/HCPCS: 51702; 80053; 87077; 96374; 99285; 74177; 81003; 81015; 85025; 87086; 87186; 99283; J3490

== ENCOUNTER 2021-06-26 06:10 | Outpatient (REF) | payer MEDICARE, MEDICAID, SELFPAY ==
[2021-06-26 06:34] LABS: HCT 35.4 % (36.0-46.0); HGB 10.8 g/dL (11.2-15.7); MCH 25.1 pg (27.0-33.0); MCHC 30.5 % (32.0-36.0); MCV 82.3 fL (80-95); Platelet Count 339 10^3/uL (130-400); RDW 16.6 % (11.7-14.6); RDW-SD 50.5 fL; WBC 9.47 10^3/uL (4.4-10.8)
[2021-06-26 06:44] LABS: ALT 21 U/L (14-59); AST 16 U/L (15-37); Albumin 3.3 g/dL (3.4-5.0); Alkaline Phosphatase 93 U/L (46-116); Anion Gap 11.4 mmol/L (3-11); BUN 16 mg/dL (7-18); Bilirubin, Total 0.5 mg/dL (0.2-1.0); CO2 23.6 mmol/L (21.0-32.0); CREATININE 0.6 mg/dL (0.55-1.02); Calcium 8.5 mg/dL (8.5-10.1); Chloride 102 mmol/L (98-107); Glucose 106 mg/dL (74-106); Potassium 4.3 mmol/L (3.5-5.1); Sodium 137 mmol/L (136-145); Total Protein 7.4 g/dL (6.4-8.2)
== END 2021-06-26 06:11 | disposition home or self-care (01) ==
LOC: LBN 06:10
PROVIDERS: PCP Family Medicine; Visit Provider Family Medicine
DX: I80.8 Phlebitis and thrombophlebitis of other sites (principal)
CPT/HCPCS: 80053; 85027

== ENCOUNTER 2021-06-27 18:07 | Outpatient (REF) | payer MEDICARE, MEDICAID, SELFPAY | END 2021-06-27 18:08 | disposition home or self-care (01) | LOC: LBN 18:07 | PROVIDERS: PCP Family Medicine; Visit Provider Family Medicine | DX: N39.0 Urinary tract infection, site not specified (principal) | CPT/HCPCS: 87077; 87086; 87186 ==

== ENCOUNTER 2021-07-04 16:23 | Outpatient (REF) | payer MEDICARE, MEDICAID, SELFPAY ==
[2021-07-05 14:57] LABS: COVID-19 RT-PCR Result Positive ((See Note))
== END 2021-07-04 16:24 | disposition home or self-care (01) ==
LOC: LBN 16:23
PROVIDERS: PCP Family Medicine; Visit Provider Family Medicine
DX: Z20.822 Contact with and (suspected) exposure to COVID-19 (principal)
CPT/HCPCS: U0003

== ENCOUNTER 2021-07-10 13:18 | Emergency (ER) | payer MEDICARE, MEDICAID, SELFPAY ==
[2021-07-10 13:24] VITALS: BP 152/69; PULSE 87; RESP 16; TEMP 36.3; O2SAT 98
--- NOTE | 2021-07-10 13:50 | ED.GENADUL_ITS ---
Discharge Plan Disposition Patient Disposition: HOME Condition: Poor Discharge Details Clinical Impression: Abdominal distension, Suprapubic catheter dysfunction, Abdominal discomfort Primary Care Provider: Randall Ling ED Provider: Isis [place] Meds and New Rx's Prescriptions: Continued citalopram 20 mg tablet 20 mg PO DAILY 0RF levetiracetam [Keppra] 750 MG tablet 1,500 mg PO BID 0RF Myrbetriq 50 mg tablet extended release 24 hr 50 mg PO DAILY 0RF Liquid Protein Fortifier 1 gram-4 kcal/6 mL Liquid 30 ml PO DAILY 0RF d-mannose 500 mg Capsule 1,000 mg PO BID 0RF morphine 15 mg tablet extended release 30 mg PO QHS 0RF Biofreeze (menthol) 4 % Gel 1 applic TOPICAL TID 0RF sertraline 50 mg tablet 100 mg PO DAILY 0RF acetaminophen 325 mg Tablet 650 mg PO Q6H PRN0RF Fleet Enema 19-7 gram/118 mL Enema 118 ml MT DAILY PRN0RF simethicone 125 mg Tablet,Chewable 125 mg PO TID PRN0RF morphine 15 mg tablet extended release 15 mg PO QAM 0RF venlafaxine 75 mg Tablet Extended Release 24hr 75 mg PO DAILY 0RF sennosides [Senokot] 8.6 mg tablet 2 tab PO BID 0RF tacrolimus 0.5 mg capsule 1 mg PO QHS 0RF oxycodone-acetaminophen [Percocet] 5-325 mg tablet 1 tab PO Q6H PRNQty: 20 0RF Bio-K plus 50 billion cell capsule,delayed release(DR/EC) 1 cap PO DAILY Qty: 30 0RF mycophenolate mofetil 250 mg Capsule 250 mg PO BID 0RF prednisone 5 mg Tablet 5 mg PO Q OTHER DAY 0RF magnesium oxide 400 mg Capsule 400 mg PO TID 0RF furosemide 20 mg Tablet 20 mg PO BID Qty: 0 0RF magnesium hydroxide [Milk of Magnesia] 400 mg/5 mL Suspension 30 ml PO BID PRN PRNQty: 0 0RF bisacodyl 10 mg Suppository 10 mg MT BID PRN PRNQty: 0 0RF nystatin 100,000 unit/gram cream 100,000 applic TOPICAL TID 0RF polyethylene glycol 3350 17 gram/dose Powder 17 g PO DAILY PRN0RF tacrolimus 0.5 mg capsule 2 mg PO QAM 0RF acetic acid 0.25 % Solution 50 ml irrigation HS 0RF silver sulfadiazine 1 % Cream 1 applic TOPICAL BID 0RF Discharge Instructions Instructions: How to Care for Your Suprapubic Catheter (DC), Abdominal Pain (ED) Additional Instructions: Catheter has been replaced. Draining clear/yellow urine. Please continue with suprapubic catheter care as previously instructed. As discussed, I am concerned that your abdominal distention and discomfort persist. You have declined to have further evaluation for this here today. I have spoken with the provider at [facility] and they will continue to help monitor this closely. As we discussed, you may return anytime for further evaluation and management. If you develop any new or worsening symptoms or wish to have continued care for your abdominal pain/distention please return to the emergency department. Referrals: Randall Ling [Primary Care Provider] - Discharge Data Discharge Date/Time-TO BE ENTERED AT DEPARTURE: 07/10/21 14:45 Medical Decision Making Patient is a pleasant 56 year old female brought in via EMS from [facility] with c/c of displaced suprapubic catheter and abdominal distention. Patient Dorst acute on chronic abdominal pain, primarily along the lower aspect. Patient does have a colostomy as well as suprapubic catheter. Patient is actively Covid positive. Past medical history is pertinent for abdominal distention, palliative care patient, T arm, adrenal insufficiency, hypertension. On exam, patient appears uncomfortable and anxious. She is denying any work-up currently, would prefer to have the suprapubic catheter replaced in helical back to [facility] where she resides. Suprapubic catheter was replaced easily by nursing staff, is currently draining clear/yellow urine. All nonbloody. Patient continues to have distended abdomen and discomfort. I encouraged the patient to undergo labs and imaging to evaluate her abdomen further and patient refuses. Wants to be home, [facility] bed [facility]. Spoke with nurse at [facility]. She advised that the distended abdomen is not unusual for the patient but that it is larger and more tender than typical and has been so today. She advised that is not unusual for Zaynab to refuse work-up/treatment options and recommended speaking with her guardian, her Sister Nicol. Nicol is her gaurdian per [facility]. Nicol [phone]. Office # [phone]. Called both numbers and was not able to reach patient's guardian. I did leave messages on both. I did review the patient's most recent note dated 07/04/2021. In that, I does report that the patient is care measures only status. Patient wanted to transition to SENIOR [employer]IVIL ENGINE[employer] status without any type of major intervention will limit hospitalization. [facility] and [facility] We discussed the concern that patient continues to have abdominal discomfort but is refusing any work up. Also discussed that I am not able to reach the patient's guardian currently to discuss. Patient adamantly wants to return now, does not want more done. We discussed presentation/exam/concerns at length. Reviewed other recent notes, she had distended abdomen (with labs and imaging at that time), as well recent ED not from 06/24/21. At the visit last month, patient wanted to be on [facility]. After discussing with care team, will send home to [facility]. They will continue to monitor her pain/distension. They are aware she is refusing anyfurther evaluation/workup here. They will continue to reach out to patients guardian to discuss. They are aware she may return at any time for further evaluation. Unclear, as patient has guardian, if she is able to clearly leave AMA but, following her recent notes and wishes, will allow her to refuse care and return to [facility] as she wishes. Patient appears to have capcity. She is able to voice understanding of this decision and that she is able to return to the ED at any time for continued care/evaluation. HPI General Date/Time Provider Initiated Documentation: 07/10/21 13:39 . HPI Narrative: Patient is a pleasant 56 year old female, currently resides at [facility], presenting today with concern for accidental displacement of her suprapubic catheter. Patient has also been noted to have distended and tender abdomen. Patient reports abdominal discomfort. She is currently COVID +. She would like to have kidd replaced and be brought back home as soon as possible. No reported fevers/chills. Has an ostomy, no change reported change in output. Denies SOB or CP. Related Data Home Medications Medication Instructions Recorded Confirmed levetiracetam 750 mg tablet 1,500 mg PO BID 08/15/13 06/23/21 (Keppra) mycophenolate mofetil 250 mg 250 mg PO BID 10/19/18 06/23/21 capsule prednisone 5 mg tablet 5 mg PO Q OTHER DAY 10/19/18 06/23/21 magnesium oxide 400 mg PO TID 10/29/18 06/23/21 furosemide 20 mg tablet 20 mg PO BID #0 tab 11/04/18 06/23/21 bisacodyl 10 mg rectal suppository 10 mg MT BID PRN PRN #0 ea 02/11/19 06/23/21 magnesium hydroxide 400 mg/5 mL 30 ml PO BID PRN PRN #0 ml 02/11/19 06/23/21 oral suspension (Milk of Magnesia) d-mannose 500 mg capsule 1,000 mg PO BID 09/14/20 06/23/21 menthol 4 % topical gel (Biofreeze 1 applic TOPICAL TID 09/14/20 06/23/21 (menthol)) mirabegron 50 mg tablet,extended 50 mg PO DAILY 09/14/20 06/23/21 release 24 hr (Myrbetriq) morphine 15 mg tablet,extended 30 mg PO QHS 09/14/20 06/23/21 release protein hydrolysate,milk 1 gram-4 30 ml PO DAILY 09/14/20 06/11/21 kcal/6 mL oral liquid (Liquid Protein Fortifier) nystatin 100,000 unit/gram topical 100,000 applic TOPICAL TID 11/17/20 06/11/21 cream polyethylene glycol 3350 17 17 g PO DAILY PRN 11/17/20 06/11/21 gram/dose oral powder tacrolimus 0.5 mg capsule, 2 mg PO QAM 11/17/20 06/23/21 immediate-release acetaminophen 325 mg tablet 650 mg PO Q6H PRN 04/11/21 06/23/21 morphine 15 mg tablet,extended 15 mg PO QAM 04/11/21 06/23/21 release sennosides 8.6 mg tablet (Senokot) 2 tab PO BID 04/11/21 06/21/21 simethicone 125 mg chewable tablet 125 mg PO TID PRN 04/11/21 06/23/21 sodium phosphates 19 gram-7 118 ml MT DAILY PRN 04/11/21 06/23/21 gram/118 mL enema (Fleet Enema) tacrolimus 0.5 mg capsule, 1 mg PO QHS 04/11/21 06/23/21 immediate-release venlafaxine 75 mg tablet,extended 75 mg PO DAILY 04/11/21 06/23/21 release 24 hr L. acidophilus,casei,rhamnosus 50 1 cap PO DAILY #30 cap 04/14/21 06/11/21 billion cell capsule,delayed release (Bio-K plus) oxycodone-acetaminophen 5 mg-325 1 tab PO Q6H PRN #20 tab 04/14/21 06/23/21 mg tablet (Percocet) acetic acid 0.25 % irrigation 50 ml IRRIGATION HS 05/24/21 05/24/21 solution silver sulfadiazine 1 % topical 1 applic TOPICAL BID 05/24/21 05/24/21 cream citalopram 20 mg tablet 20 mg PO DAILY 06/07/21 06/23/21 sertraline 50 mg tablet 100 mg PO DAILY tab 06/07/21 06/23/21 Previous Rx's Medication Instructions Recorded furosemide 20 mg tablet 20 mg PO BID #0 tab 11/04/18 bisacodyl 10 mg rectal suppository 10 mg MT BID PRN PRN #0 ea 02/11/19 magnesium hydroxide 400 mg/5 mL 30 ml PO BID PRN PRN #0 ml 02/11/19 oral suspension (Milk of Magnesia) L. acidophilus,casei,rhamnosus 50 1 cap PO DAILY #30 cap 04/14/21 billion cell capsule,delayed release (Bio-K plus) oxycodone-acetaminophen 5 mg-325 1 tab PO Q6H PRN #20 tab 04/14/21 mg tablet (Percocet) Allergies Allergy/AdvReac Type Severity Reaction Status Date / Time codeine Allergy Severe Unverified 06/23/21 21:39 divalproex sodium Allergy Unverified 06/23/21 21:39 [From Depakote] povidone-iodine AdvReac Unknown Skin Rash Unverified 06/23/21 21:39 [From Betadine] soap [From Betadine] AdvReac Skin Rash Unverified 06/23/21 21:39 General Stated Complaint: Urinary AD: 3 Review of Systems Constitutional Constitutional: Reports as per HPI, Denies chills and Denies fever(s) Cardiovascular Cardiovascular: Denies chest pain and Denies dyspnea Respiratory Respiratory: Denies cough, Denies dyspnea and Reports other (currently COVID +) Gastrointestinal Gastrointestinal: Reports abdominal pain, Reports bloating, Denies change in bowel habits (reports normal ostomy output), Denies nausea and Denies vomiting Genitourinary Genitourinary: Reports as per HPI Musculoskeletal Musculoskeletal: Reports as per HPI and Denies back pain PFSH All Active Problems (Updated 07/10/21 @ 14:33 by NIRAV Guallpa) Suprapubic catheter dysfunction (Acute) Abdominal discomfort (Acute) COVID-19 (Acute) Comfort measures only status (Acute) Suprapubic catheter dysfunction (Acute) Abdominal distension (Acute) Depression (Chronic) DNR (do not resuscitate) (Acute) Palliative care patient (Acute) Deep vein thrombophlebitis of arm (Acute) Suprapubic catheter dysfunction (Acute) Ground glass opacity present on imaging of lung (Acute) LLL pneumonia (Acute) Incontinence in female (Acute) Candice-rectal abscess (Chronic) Ambulatory dysfunction (Chronic) Adrenal insufficiency (Chronic) Hypercoagulable state, primary (Chronic) Hypertension (Chronic) Osteoarthritis of left hip (Chronic) Medical History C5 vertebral fracture Cerebellar lesion Chronic anticoagulation Chronic kidney disease Hyperparathyroidism Lytic bone lesions on xray on CT Neurogenic bladder Osteoporosis Peripheral neuropathy Protein S deficiency Seizure disorder TBI (traumatic brain injury) Surgical History Colonoscopy - MAC (02/11/15) INO MERINO Fistula creation History of kidney transplant S/P kidney transplant Social History Smoking/Tobacco Use Status: Never Smoking risk assessment performed?: Yes Alcohol Intake: never Drug use: Never Substance use type: does not use Do you feel safe at home: Yes Do you feel safe in your relationship?: Yes Additional Social history: Lives at [facility] and Exam Const General: cooperative, no acute distress, well developed, well groomed and ill appearing acutely and chronically Nutritional Appearance: average body habitus and well nourished Orientation: alert and awake Resp Effort & Inspection: normal respiratory effort and no respiratory distress Auscultation: clear to auscultation bilaterally, no rales, no rhonchi and no wheezes Cardio Rate: regular rate Rhythm: regular rhythm Heart Sounds: S1 normal and S2 normal GI Inspection: distended and other (ostomy with light brown stool output) Palpation: firm, no guarding, hernia (soft, nontender), no pulsatile masses and tender (diffusely tender, no focal area of discomfort) Negative for obturator sign negative and with no rebound tenderness Percussion: tympanic to percussion Auscultation: normal bowel sounds Skin General skin exam: no rashes or lesions noted Trauma: no lacerations or abrasions Neuro General: patient alert and patient awake Cognition: normal cognition Speech: speech normal Psych Appearance: grossly normal and well kempt Mental Status: mental status grossly normal Speech and Movement: speech and movement normal Course Vital Signs Vital signs: Vital Signs Temperature 36.3 C L 07/10/21 13:24 Pulse 87 07/10/21 13:24 Respiratory Rate 16 07/10/21 13:24 Blood Pressure 152/69 H 07/10/21 13:24 Pulse Oximetry 98 07/10/21 13:24 Temperature 36.3 C L 07/10/21 13:24 Temperature Source Temporal Artery Scan 07/10/21 13:24 Pulse 87 07/10/21 13:24 Respiratory Rate 16 07/10/21 13:24 Respiratory Effort Non-Labored 07/10/21 13:24 Blood Pressure 152/69 H 07/10/21 13:24 Blood Pressure Position Supine 07/10/21 13:24 Pulse Oximetry 98 07/10/21 13:24 Oxygen Delivery Method Room Air 07/10/21 13:24 Oxygen Flow Rate 0 07/10/21 13:24 Pain Level 0 07/10/21 13:24
== END 2021-07-10 14:45 | disposition home or self-care (01) ==
PROVIDERS: Emergency Provider Physician Assistant; PCP Family Medicine
DX: T83.098A Other mechanical complication of other urinary catheter, initial encounter (principal); R14.0 Abdominal distension (gaseous); R10.9 Unspecified abdominal pain; U07.1 COVID-19
CPT/HCPCS: 51702; 99283

== ENCOUNTER → 2021-09-12 14:11 | Outpatient (BNVA) | payer MEDICARE, MEDICAID, SELFPAY | PROVIDERS: PCP Family Medicine; Referring Provider Family Medicine; Visit Provider Urology | DX: T83.010A Breakdown (mechanical) of cystostomy catheter, initial encounter (principal) | CPT/HCPCS: 99213 ==